=== PATIENT | female | born 1995 | race Caucasian/White ===

== ENCOUNTER 2018-01-02 20:55 | Emergency (ER) | payer OTHER ==
--- OUTSIDE RECORDS SUMMARY | 2018-01-02 20:57 | XMS REPORT | Clinical Summary ---
:1995 Demographics Phone Unavailable Preferred Language Unknown Marital Status Unknown Zoroastrianism Affiliation Unknown Race Unknown Ethnic Group Unknown Author Organization [facility] Address [address] [place] [address] Phone Care Team Providers Name Role Phone Unavailable Primary Care Provider Unavailable Allergies Active Allergy Reactions Severity Noted Date Comments Doxycycline Shortness Of Breath High 04/01/2016 Azithromycin Shortness Of Breath High 04/01/2016 Current Medications Prescription Sig. Disp. Refills Start Date End Date Status ACETAZOLAMIDE ORAL Take by mouth. Active Active Problems Not on file Social History Tobacco Use Types Packs/Day Years Used Date Current Every Day Smoker Alcohol Use Drinks/Week oz/Week Comments No Sex Assigned at Date Recorded Not on file Last Filed Vital Signs Not on file Plan of Treatment Not on file Results Not on fileafter 01/01/2017
[2018-01-02 21:34] LABS: Urine Blood TRACE (NEG); Urine Glucose NEGATIVE (NEG); Urine Protein NEGATIVE (NEG); Urine Specific Gravity 1.025 (1.005-1.030)
[2018-01-02 21:56] LABS: Urine Bacteria >50 /HPF (<20); Urine Culture Reflex Order REFLEXED; Urine RBC <5 /HPF (NONE SEEN)
[2018-01-02 22:02] LABS: Absolute Lymphocytes (CBC) 2.2 K/uL (0.7-4.9); Absolute Monocytes 0.6 K/uL (0.1-1.3); Absolute Neutrophil 6.8 K/uL (1.8-8.0); Basophils % 0.6 % (0-1.3); Eosinophils % 4.7 % (0-4.4); Hematocrit 38.4 % (36.0-45.0); MCH 30.5 pg (27.0-35.0); MCV 88.9 fL (80-100); Monocytes % 5.8 % (3.3-12.3); RBC Red Blood Cell Count 4.32 M/uL (3.86-4.86)
[2018-01-02] MEDS ORDERED: ONDANSETRON 4 MG/2 ML VIAL ONE (22:03)
[2018-01-02] MEDS ORDERED: MORPHINE 4 MG/ML SYR ONE (22:03)
[2018-01-02 22:29] LABS: ALT/SGPT 93 U/L (12-78); AST/SGOT 46 U/L (15-37); Albumin 3.9 g/dL (3.4-5.0); Alkaline Phosphatase 100 U/L (45-117); BUN Blood Urea Nitrogen 11 mg/dL (7-18); Bicarbonate 24 mmol/L (21-32); Bilirubin Direct 0.1 mg/dL (0-0.2); Bilirubin Total 0.4 mg/dL (0.2-1.0); Glucose Level 78 mg/dL (74-106); Lipase 83 U/L (73-393); Potassium 3.6 mmol/L (3.5-5.1); Protein, Total 7.9 g/dL (6.4-8.2); Sodium Level 140 mmol/L (136-145)
[2018-01-02 22:33] LABS: HCG, Quantitative < 1 mIU/mL (1-3)
[2018-01-02] MEDS ORDERED: KETOROLAC 30 MG/ML INJ ONE (23:01)
--- NOTE | 2018-01-03 00:51 | ER ---
Nurse's Notes [facility] Name: Ana Lilia Kline Age: 22 yrs Sex: Female : 1995 Arrival Date: 01/02/2018 Time: 20:58 Bed 28 Private MD: Diagnosis: Lower abdominal pain, unspecified Presentation: 01/02 21:00 Presenting complaint: Patient states: "Since Thursday I've been having really bad pain aj1 on the right side of my abdomen. I went to my doctor because its been a month since I had emergency surgery because I lost blood flow to the right ovary and they had to remove it. She saw her doctor and they did blood work and she was prescribed Tylenol #3, which she has taken but the pain has gotten progressively worse, and now the Tylenol #3s arent' helping. Reports nausea. Denies V/D. Denies fever. Reports some spotty vaginal bleeding but says that she was told to expect that after surgery. Transition of care: patient was not received from another setting of care. Onset of symptoms was December 29, 2017. Risk Assessment: Do you want to hurt yourself or someone else? Patient reports no desire to harm self or others. Initial Sepsis Screen: Does the patient meet any 2 criteria? HR > 90 bpm. No. Patient's initial sepsis screen is negative. Does the patient have a suspected source of infection? Yes: Acute abdominal pain. Care prior to arrival: None. 21:00 Method Of Arrival: Ambulatory aj1 21:00 Acuity: KATY 3 aj1 Triage Assessment: 21:05 General: Appears uncomfortable, Behavior is cooperative, restless. Pain: Complains of aj1 pain in groin, right femoral area and right inguinal area Pain currently is 8 out of 10 on a pain scale. Neuro: Level of Consciousness is awake, alert, obeys commands. Cardiovascular: Patient's skin is warm and dry. Respiratory: Airway is patent Respiratory effort is even, unlabored, Respiratory pattern is regular, symmetrical. GI: Reports nausea. : Reports vaginal bleeding that is spotty. 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 - Social history:: Smoking status: Patient uses tobacco products, smokes one-half pack cigarettes per day. - Ebola Screening: : Patient denies travel to an Ebola-affected area in the 21 days before illness onset. Screenin:30 Abuse screen: Denies threats or abuse. Denies injuries from another. rv 21:30 Nutritional screening: No deficits noted. Tuberculosis screening: No symptoms or risk rv factors identified. Fall Risk None identified. Assessment: 21:30 General: Appears in no apparent distress. uncomfortable, Behavior is calm, cooperative. rv 21:30 Pain: Complains of pain in abdomen. Neuro: Level of Consciousness is awake, alert, rv obeys commands, Oriented to person, place, time, situation. Cardiovascular: Capillary refill < 3 seconds. Respiratory: Airway is patent. GI: Bowel sounds present X 4 quads. Abd is soft and non tender X 4 quads. : No signs and/or symptoms were reported regarding the genitourinary system. EENT: No signs and/or symptoms were reported regarding the EENT system. Derm: Skin is intact. 22:25 Reassessment: Patient appears in no apparent distress at this time. Patient and/or rv family updated on plan of care and expected duration. Pain level reassessed. Patient is alert, oriented x 3, equal unlabored respirations, skin warm/dry/pink. 23:30 Reassessment: Patient appears in no apparent distress at this time. Patient and/or rv family updated on plan of care and expected duration. Pain level reassessed. Patient is alert, oriented x 3, equal unlabored respirations, skin warm/dry/pink. 23:30 Reassessment:. rv 01/03 00:29 Reassessment: pt states she is very upset because she does not want to have CT scan bb notified Gayla MAY. Vital Signs: 01/02 21:05 BP 140 / 57; Pulse 107; Resp 18; Temp 97.2; Pulse Ox 99% on R/A; Weight 113.4 kg (M); aj1 Height 5 ft. 2 in. (157.48 cm) (M); Pain 8/10; 22:59 BP 106 / 66; Pulse 68; Pulse Ox 99% on R/A; rv 01/03 00:52 BP 112 / 75; Pulse 72; Pulse Ox 99% on R/A; rv 01/02 21:05 Body Mass Index 45.73 (113.40 kg, 157.48 cm) aj1 ED Course: 01/02 20:58 Patient arrived in ED. al2 21:02 Alexandro Petit PA is PHCP. cp 21:02 Indra Yee MD is Attending Physician. cp 21:03 Triage completed. aj1 21:05 Arm band placed on Patient placed in an exam room. aj1 21:30 Patient has correct armband on for positive identification. Placed in gown. Bed in low rv position. Call light in reach. Side rails up X 1. 21:30 Pulse ox on. NIBP on. rv 21:30 Inserted saline lock: 20 gauge in right antecubital area, using aseptic technique. rv Blood collected. 21:30 Initial lab(s) drawn, by me, sent to lab. Urine collected: clean catch specimen, clear. rv 21:49 Urine Culture Sent. jp3 21:49 Urine Microscopic Only Sent. jp3 22:18 Ultrasound completed. Patient tolerated well. aa4 22:19 US Transvaginal Study (Probe) In Process Unspecified. EDMS 01/03 00:53 No provider procedures requiring assistance completed. IV discontinued, bleeding rv controlled, No redness/swelling at site. Pressure dressing applied. Administered Medications: 01/02 22:00 Drug: morphine 4 mg Route: IVP; Site: right antecubital; rv 23:27 Follow up: Response: Pain is decreased rv 22:13 Drug: Zofran 4 mg Route: IVP; Site: right antecubital; rv 23:28 Follow up: Response: Nausea is decreased rv 22:59 Drug: TORadol 30 mg Route: IVP; Site: right antecubital; rv 23:28 Follow up: Response: Pain is decreased rv Outcome: 01/03 00:53 AMA AMA form signed rv Condition: improved Instructed on follow up and referral plans. 00:54 Patient left the ED. rv Signatures: Dispatcher [employer] EDVianney Guzmán RN RN aj1 Sommer Rodrigues RN RN Nataliia Cai aa4 Alexandro Petit PA PA cp Love, Angelica al2 Vicente, Ronaldo RN RN rv Edwin Gayle jp3
--- NOTE | 2018-01-03 00:51 | EDPHYS ---
Physician Documentation [facility] Name: Ana Lilia Kline Age: 22 yrs Sex: Female : 1995 Arrival Date: 01/02/2018 Time: 20:58 Bed 28 Private MD: ED Physician Indra Yee HPI: 01/02 21:33 This 22 yrs old Female presents to ER via Ambulatory with complaints of cp Abdominal Pain. 21:33 The patient presents with abdominal pain right lower quadrant. cp 21:33 Onset: The symptoms/episode began/occurred 4 day(s) ago. cp 21:33 The symptoms do not radiate. Associated signs and symptoms: Pertinent positives: cp vaginal spotting, Pertinent negatives: chest pain, constipation, diarrhea, dysuria, fever, vomiting. 21:33 Patient reports having emergency surgery with removal of right fallopian tube 1 month cp ago at hospital in [place]. Patient reports increasing pain over past 4 days to right lower abdomen. 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 - Social history:: Smoking status: Patient uses tobacco products, smokes one-half pack cigarettes per day. - Ebola Screening: : Patient denies travel to an Ebola-affected area in the 21 days before illness onset. ROS: 21:40 Constitutional: Negative for body aches, chills, fever, poor PO intake. cp 21:40 Eyes: Negative for injury, pain, redness, and discharge. cp 21:40 ENT: Negative for drainage from ear(s), ear pain, sore throat, difficulty swallowing, difficulty handling secretions. 21:40 Cardiovascular: Negative for chest pain, palpitations. 21:40 Respiratory: Negative for cough, shortness of breath, wheezing. 21:40 Abdomen/GI: Positive for abdominal pain, of the right lower quadrant, Negative for nausea, vomiting, and diarrhea, constipation, anorexia, black/tarry stool, rectal bleeding. 21:40 Back: Negative for pain at rest, pain with movement, radiated pain. 21:40 : Positive for vaginal spotting, Negative for urinary symptoms, flank pain, vaginal discharge. 21:40 Skin: Negative for cellulitis, rash. 21:40 Neuro: Negative for altered mental status, headache, weakness. 21:40 All other systems are negative. Exam: 21:48 Constitutional: The patient appears in no acute distress, alert, awake, non-toxic, well cp developed, well nourished, uncomfortable. 21:48 Head/Face: Normocephalic, atraumatic. Eyes: Pupils equal round and reactive to light, cp extra-ocular motions intact. Lids and lashes normal. Conjunctiva and sclera are non-icteric and not injected. Cornea within normal limits. Periorbital areas with no swelling, redness, or edema. ENT: Nares patent. No nasal discharge, no septal abnormalities noted. Tympanic membranes are normal and external auditory canals are clear. Oropharynx with no redness, swelling, or masses, exudates, or evidence of obstruction, uvula midline. Mucous membranes moist. Chest/axilla: Normal chest wall appearance and motion. Nontender with no deformity. No lesions are appreciated. 21:48 Cardiovascular: Rate: tachycardic, Rhythm: regular, Edema: is not appreciated, JVD: is not appreciated. 21:48 Respiratory: the patient does not display signs of respiratory distress, Respirations: normal, no use of accessory muscles, no retractions, no splinting, no tachypnea, labored breathing, is not present, Breath sounds: are clear throughout, no decreased breath sounds, no stridor, no wheezing. 21:48 Abdomen/GI: Inspection: abdomen appears normal, Bowel sounds: active, all quadrants, Palpation: soft, in all quadrants, moderate abdominal tenderness, in the right lower quadrant, rebound tenderness, is not appreciated, involuntary guarding, is not appreciated. 21:48 Back: pain, is absent, ROM is normal. 21:48 Skin: cellulitis, is not appreciated, no rash present. 21:48 Neuro: Orientation: to person, place \T\ time. Mentation: lucid, able to follow commands, Cerebellar function: is grossly normal, Motor: moves all fours, strength is normal, Sensation: no obvious gross deficits, Gait: is steady. Vital Signs: 21:05 BP 140 / 57; Pulse 107; Resp 18; Temp 97.2; Pulse Ox 99% on R/A; Weight 113.4 kg (M); aj1 Height 5 ft. 2 in. (157.48 cm) (M); Pain 8/10; 22:59 BP 106 / 66; Pulse 68; Pulse Ox 99% on R/A; rv 01/03 00:52 BP 112 / 75; Pulse 72; Pulse Ox 99% on R/A; rv 01/02 21:05 Body Mass Index 45.73 (113.40 kg, 157.48 cm) aj1 MDM: 01/02 21:25 Patient medically screened. cp 01/03 00:45 Data reviewed: vital signs, nurses notes, lab test result(s), radiologic studies, cp ultrasound. 00:45 Refusal of service: The patient/guardian displays adequate decision making capability cp and despite a detailed discussion of alternatives, benefits, risks, and consequences refuses: CT Scan. 01/02 21:18 Order name: Urine Microscopic Only; Complete Time: 22:29 bb 01/02 21:18 Order name: Urine Culture 01/02 21:21 Order name: Urine Dipstick--Ancillary (enter results); Complete Time: 21:42 mw2 01/02 21:21 Order name: Urine --Ancillary (enter results); Complete Time: 21:42 mw2 01/02 21:42 Interpretation: Reviewed. cp 01/02 21:42 Order name: Basic Metabolic Panel cp 01/02 21:42 Order name: CBC with Diff cp 01/02 21:42 Order name: Creatinine for Radiology cp 01/02 21:42 Order name: Hepatic Function cp 01/02 21:42 Order name: Lipase; Complete Time: 22:53 cp 01/02 21:42 Order name: Beta hcg; Complete Time: 22:53 cp 01/02 21:42 Order name: Basic Metabolic Panel; Complete Time: 22:53 EDMS 01/02 21:42 Order name: CBC with Automated Diff; Complete Time: 22:29 EDMS 01/02 21:42 Order name: Liver (Hepatic) Function; Complete Time: 22:53 EDMS 01/02 21:42 Order name: IV Saline Lock; Complete Time: 21:45 cp 01/02 21:42 Order name: Labs collected and sent; Complete Time: 21:45 cp 01/02 21:52 Order name: US Transvaginal Study (Probe) cp Administered Medications: 01/02 22:00 Drug: morphine 4 mg Route: IVP; Site: right antecubital; rv 23:27 Follow up: Response: Pain is decreased rv 22:13 Drug: Zofran 4 mg Route: IVP; Site: right antecubital; rv 23:28 Follow up: Response: Nausea is decreased rv 22:59 Drug: TORadol 30 mg Route: IVP; Site: right antecubital; rv 23:28 Follow up: Response: Pain is decreased rv Disposition: 01/03 19:22 Co-signature as Attending Physician, Indra Yee MD. rn Disposition: 01/03/18 00:50 Patient has left against medical advice. Impression: Lower abdominal pain, unspecified. - Patients states they are going to Home. - Condition is Stable. - Discharge Instructions: Abdominal Pain, Adult. Follow up: Private Physician; When: Tomorrow; Reason: Recheck today's complaints. - Problem is new. - Symptoms have improved. Signatures: Dispatcher [employer] [facility] Vianney Toledo RN RN aj1 Indra Yee MD MD rn Page, Corey, PA PA Eduar Mares RN RN rv Corrections: (The following items were deleted from the chart) 01/02 21:59 21:42 Creatinine (Radiology Only) ordered. [facility] 01/03 00:54 00:50 01/03/2018 00:50 Patients has left against medical advice. Impression: Lower rv abdominal pain, unspecified. Patient states they are going to Home. Condition is Stable. Follow up: Private Physician; When: Tomorrow; Reason: Recheck today's complaints. Problem is new. Symptoms have improved. cp
[2018-01-03 01:19] VITALS: TEMP 97.2; O2SAT 99
[2018-01-03 01:21] VITALS: BP 112/75
--- NOTE | 2018-01-03 10:28 | RAD REPORT ---
EXAM DESCRIPTION: US - Transvaginal Study Probe - 01/02/2018 10:31 pm CLINICAL HISTORY: Right adnexal pain, history of recent left salpingectomy COMPARISON: None. TECHNIQUE: Endovaginal sonography was performed along with limited transabdominal assessment. FINDINGS: Endometrial stripe is 6 mm with no endometrial abnormality. No myometrial mass. Uterus is 6.8 by 3.6 x 4.7 cm. Both ovaries are identifiable. Doppler evaluation shows no suspicious pattern to the ovarian stroma. Left ovary measures larger than the right but does not contain a dominant solid or cystic mass. No ab normal free fluid in the cul-de-sac. IMPRESSION: As detailed above, no significant or suspicious uterine, ovarian or adnexal finding.
== END 2018-01-03 00:54 | disposition left against medical advice (07) ==
LOC: ER 20:55
DX: R10.31 Right lower quadrant pain (principal); Z88.3 Allergy status to other anti-infective agents
CPT/HCPCS: 36415; 76830; 80048; 80076; 81003; 81015; 81025; 83690; 84702; 85025; 87086; 87088; 96374; 96375; 99284; J2405

== ENCOUNTER 2018-04-01 17:33 | Emergency (ER) | payer OTHER, SELFPAY ==
--- OUTSIDE RECORDS SUMMARY | 2018-04-01 17:36 | XMS REPORT | Clinical Summary ---
:1995 Demographics Phone Unavailable Preferred Language Unknown Marital Status Unknown Sikh Affiliation Unknown Race Unknown Ethnic Group Unknown Author Organization [facility] Address [address] [place] [address] Care Team Providers Name Role Phone Unavailable Primary Care Provider Unavailable Allergies Active Allergy Reactions Severity Noted Date Comments Doxycycline Shortness Of Breath High 04/01/2016 Azithromycin Shortness Of Breath High 04/01/2016 Medications Medication Sig Dispensed Refills Start Date End Date Status ACETAZOLAMIDE ORAL Take by mouth. 0 Active Active Problems Not on file Social History Tobacco Use Types Packs/Day Years Used Date Current Every Day Smoker Alcohol Use Drinks/Week oz/Week Comments No Sex Assigned at Date Recorded Not on file Job Start Date Occupation Industry Not on file Not on file Not on file Travel History Travel Start Travel End No recent travel history available. Last Filed Vital Signs Not on file Plan of Treatment Not on file Results Not on fileafter 03/31/2017
--- NOTE | 2018-04-01 19:27 | RAD REPORT ---
EXAM DESCRIPTION: RAD - Wrist Right 3 View - 04/01/2018 6:50 pm CLINICAL HISTORY: Right wrist pain FINDINGS: No fracture or dislocation is seen. Fusion of the lunate and triquetrum is present.
[2018-04-01] MEDS ORDERED: HYDROCODONE/APAP 5/325 MG TAB ONE (19:43)
--- NOTE | 2018-04-01 19:52 | ER ---
Nurse's Notes [facility] Name: Ana Lilia Kline Age: 22 yrs Sex: Female : 1995 Arrival Date: 04/01/2018 Time: 17:35 Bed 10 Private MD: Diagnosis: Pain in right wrist Presentation: 04/01 18:01 Presenting complaint: Right wrist pain after feeling something pop inside while picking hb up daughter last night. Transition of care: patient was not received from another setting of care. Onset of symptoms was March 31, 2018. Risk Assessment: Do you want to hurt yourself or someone else? Patient reports no desire to harm self or others. Initial Sepsis Screen: Does the patient meet any 2 criteria? No. Patient's initial sepsis screen is negative. Does the patient have a suspected source of infection? No. Patient's initial sepsis screen is negative. Care prior to arrival: None. 18:01 Method Of Arrival: Ambulatory hb 18:01 Acuity: KATY 4 hb Triage Assessment: 18:30 Injury Description:. iw 19:56 General: Appears in no apparent distress. Behavior is calm, cooperative. 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 - Social history:: Smoking status: Patient/guardian denies using tobacco. - Ebola Screening: : No symptoms or risks identified at this time. Screenin:40 Abuse screen: Denies threats or abuse. Denies injuries from another. Nutritional iw screening: No deficits noted. Tuberculosis screening: No symptoms or risk factors identified. Fall Risk None identified. Assessment: 18:40 General: Appears in no apparent distress. comfortable, Behavior is calm, cooperative. iw Pain: Complains of pain in right arm and right wrist. Neuro: Level of Consciousness is awake, alert, obeys commands, Moves all extremities. Full function. Cardiovascular: No deficits noted. Respiratory: Respiratory effort is even, unlabored, Respiratory pattern is regular, symmetrical. Derm: Skin is intact, is healthy with good turgor. Musculoskeletal: Reports pain in right wrist. Vital Signs: 18:00 BP 138 / 72; Pulse 88; Resp 16; Temp 97.1; Pulse Ox 100% on R/A; Pain 6/10; hb ED Course: 17:35 Patient arrived in ED. rg4 18:00 Arm band placed on. hb 18:01 Triage completed. hb 18:30 Annalee Feliciano, RN is Primary Nurse. iw 18:32 Meg[facility] Randhawa [facility]-C [facility]. kb 18:32 Navi Sheldon MD is Attending Physician. kb 18:40 Patient has correct armband on for positive identification. iw 18:49 Wrist Right 3 View XRAY In Process Unspecified. EDMS 19:56 No provider procedures requiring assistance completed. Patient did not have IV access iw during this emergency room visit. Administered Medications: 19:40 Drug: Stuart 5 mg-325 mg 1 tabs Route: PO; iw Outcome: 19:52 Discharge ordered by . kb 19:56 Discharged to home ambulatory. iw 19:56 Condition: good 19:56 Discharge instructions given to patient, Instructed on discharge instructions, follow up and referral plans. Demonstrated understanding of instructions, follow-up care. 19:57 Patient left the ED. iw Signatures: Dispatcher [employer] EDMA Meggan Randhawa FNP-C [employer] BW DEVELOPER-CkAnnalee Dietz, RN RN Vy Graham RN RN hb Garcia, Rubi rg4
--- NOTE | 2018-04-01 19:52 | EDPHYS ---
Physician Documentation [facility] Name: Ana Lilia Kline Age: 22 yrs Sex: Female : 1995 Arrival Date: 04/01/2018 Time: 17:35 Bed 10 Private MD: ED Physician Navi Sheldon HPI: 04/01 19:50 This 22 yrs old Female presents to ER via Ambulatory with complaints of Hand kb Injury. 19:50 The patient or guardian reports decreased range of motion, injury, pain, swelling, kb tenderness. The complaints affect the right wrist diffusely. Context: The problem was sustained at home, resulted from landed on it wrong. Onset: The symptoms/episode began/occurred yesterday. Modifying factors: The symptoms are alleviated by nothing, the symptoms are aggravated by nothing. Associated signs and symptoms: The patient has no apparent associated signs or symptoms. The patient has not experienced similar symptoms in the past. The patient has not recently seen a physician. Pt reports chronic wrist pain that was exacerbated yesterday when she caught her daughter from falling off the bed. States she felt a pop at the time and thinks it is broken. CONDUCTOR SYMPHONIC ORCHESTRA: 18:30 LMP N/A - iw Historical: - Allergies: 18:00 Doxycycline; hb 18:00 Zithromax; hb 18:00 Toradol; hb - Immunization history:: Adult Immunizations not up to date. - Social history:: Smoking status: Patient/guardian denies using tobacco. - Ebola Screening: : No symptoms or risks identified at this time. ROS: 19:49 Constitutional: Negative for fever, chills, and weight loss, Cardiovascular: Negative kb for chest pain, palpitations, and edema, Respiratory: Negative for shortness of breath, cough, wheezing, and pleuritic chest pain, Abdomen/GI: Negative for abdominal pain, nausea, vomiting, diarrhea, and constipation, Skin: Negative for injury, rash, and discoloration, Neuro: Negative for headache, weakness, numbness, tingling, and seizure. 19:49 MS/extremity: Positive for decreased range of motion, pain, swelling, tenderness. Exam: 19:49 Constitutional: This is a well developed, well nourished patient who is awake, alert, kb and in no acute distress. Head/Face: Normocephalic, atraumatic. Chest/axilla: Normal chest wall appearance and motion. Nontender with no deformity. No lesions are appreciated. Cardiovascular: Regular rate and rhythm with a normal S1 and S2. No gallops, murmurs, or rubs. Normal PMI, no JVD. No pulse deficits. Respiratory: Lungs have equal breath sounds bilaterally, clear to auscultation and percussion. No rales, rhonchi or wheezes noted. No increased work of breathing, no retractions or nasal flaring. Abdomen/GI: Soft, non-tender, with normal bowel sounds. No distension or tympany. No guarding or rebound. No evidence of tenderness throughout. Skin: Warm, dry with normal turgor. Normal color with no rashes, no lesions, and no evidence of cellulitis. Neuro: Awake and alert, GCS 15, oriented to person, place, time, and situation. Cranial nerves II-XII grossly intact. Motor strength 5/5 in all extremities. Sensory grossly intact. Cerebellar exam normal. Normal gait. 19:49 Musculoskeletal/extremity: Extremities: grossly normal except: noted in the right wrist: decreased ROM, pain, swelling, tenderness, ROM: limited active range of motion due to pain, in the right wrist, Circulation is intact in all extremities. Sensation intact. Vital Signs: 18:00 BP 138 / 72; Pulse 88; Resp 16; Temp 97.1; Pulse Ox 100% on R/A; Pain 6/10; hb MDM: 18:32 Patient medically screened. kb 19:48 Data reviewed: vital signs, nurses notes. Data interpreted: Pulse oximetry: on room air kb is 100 %. Interpretation: normal. Counseling: I had a detailed discussion with the patient and/or guardian regarding: the historical points, exam findings, and any diagnostic results supporting the discharge/admit diagnosis, radiology results, the need for outpatient follow up, a orthopedic surgeon, to return to the emergency department if symptoms worsen or persist or if there are any questions or concerns that arise at home. 04/01 18:02 Order name: Wrist Right 3 View XRAY; Complete Time: 19:29 hb 04/01 19:30 Order name: Splint - Wrist; Complete Time: 19:40 kb Administered Medications: 19:40 Drug: [place] 5 mg-325 mg 1 tabs Route: PO; iw Disposition: 04/01/18 19:52 Discharged to Home. Impression: Pain in right wrist. - Condition is Stable. - Discharge Instructions: Wrist Pain, [id number]. - Medication Reconciliation Form, Thank You Letter, Antibiotic Education, Prescription Opioid Use form. - Follow up: Emergency Department; When: As needed; Reason: Worsening of condition. Follow up: Private Physician; When: 2 - 3 days; Reason: Recheck today's complaints, Continuance of care, Re-evaluation by your physician. Addendum: 04/08/2018 09:35 Co-signature as Attending Physician, Navi Sheldon MD I agree with the assessment and k dr plan of care. Signatures: Dispatcher [employer] EDMS Meggan Randhawa, METAPHYSICIAN-C METAPHYSICIAN-Ckb Navi Sheldon MD MD [facility] Annalee Feliciano, CIARRA RN iw Vy Graham RN RN Corrections: (The following items were deleted from the chart) 04/01 19:57 19:52 04/01/2018 19:52 Discharged to Home. Impression: Pain in right wrist. Condition iw is Stable. Forms are Medication Reconciliation Form, Thank You Letter, Antibiotic Education, Prescription Opioid Use. Follow up: Emergency Department; When: As needed; Reason: Worsening of condition. Follow up: Private Physician; When: 2 - 3 days; Reason: Recheck today's complaints, Continuance of care, Re-evaluation by your physician. kb
[2018-04-01 20:05] VITALS: BP 138/72; TEMP 97.1; O2SAT 100
== END 2018-04-01 19:57 | disposition home or self-care (01) ==
LOC: ER 17:33
DX: M25.531 Pain in right wrist (principal); Z88.6 Allergy status to analgesic agent; Z88.1 Allergy status to other antibiotic agents

== ENCOUNTER 2020-02-19 16:37 | Emergency (ER) | payer OTHER, SELFPAY ==
--- OUTSIDE RECORDS SUMMARY | 2020-02-19 16:39 | XMS REPORT | Clinical Summary ---
:1995 Author Organization [facility] Address [address] [place] [address] Care Team Providers Name Role Phone Asked, Pcp Primary Care Provider Unavailable Allergies Active Allergy Reactions Severity Noted Date Comments Azithromycin Anaphylaxis High 05/01/2019 Doxycycline GI Intolerance 05/01/2019 Ketorolac Hives 05/01/2019 Medications Not on file Active Problems Not on file Encounters Date Type Specialty Care Team Description 05/01/2019 Emergency Emergency Medicine Nithin Potter Leu kocytosis, unspecified type (Primary Dx); Tachycardia; SIRS (systemic inflammatory response syndrome) (HCC); Pelvic pain; Left against me dical advice after 02/18/2019 Social History Tobacco Use Types Packs/Day Years Used Date Never Assessed Sex Assigned at Date Recorded Not on file Last Filed Vital Signs Vital Sign Reading Time Taken Comments Blood Pressure 117/74 05/01/2019 5:24 PM [employer] Pulse 131 05/01/2019 5:24 PM [employer] Temperature 37.1 C (98.7 F) 05/01/2019 5:24 PM [employer] Respiratory Rate 20 05/01/2019 5:24 PM [employer] Oxygen Saturation 97% 05/01/2019 5:24 PM [employer] Inhaled Oxygen Concentration - - Weight - - Height 157.5 cm (5' 2") 05/01/2019 5:24 PM [employer] Body Mass Index - - Plan of Treatment Health Maintenance Due Date Last Done Comments CHLAMYDIA SCREENING 2011 CERVICAL CANCER SCREENING 09/06/2016 INFLUENZA VACCINE 10/15/2019 Procedures Procedure Name Priority Date/Time Associated Comments Diagnosis ECG 12-LEAD STAT 05/01/2019 6:45 Results for this PM [employer] procedure are i n the results section. ESTIMATED GFR STAT 05/01/2019 6:30 Results fo r this PM [employer] procedure are i n the results section. HCG QUALITATIVE, SERUM STAT 05/01/2019 6:30 R esults for this SCREEN PM [employer] procedure are i n the results section. LIPASE LEVEL STAT 05/01/2019 6:30 Results for this PM [employer] procedure are i n the results section. LACTIC ACID LEVEL, STAT 05/01/2019 6:30 Resul ts for this SEPSIS - NOW AND PM [employer] procedure a re in REPEAT 2X EVERY 3 the result s HOURS section. COMPREHENSIVE STAT 05/01/2019 6:30 Results fo r this METABOLIC PANEL PM [employer] procedure ar e in the results section. HC COMPLETE BLD COUNT STAT 05/01/2019 6:30 Re sults for this W/AUTO DIFF PM [employer] procedure are i n the results section. after 02/18/2019 Results ECG 12 lead (05/01/2019 6:45 PM [employer]) Pathologist Sig nature Ventricular rate 106 [facility] Atrial rate 106 [facility] TN interval 118 [facility] QRSD interval 82 [facility] QT interval 350 [facility] QTC interval 464 [facility] P axis 1 49 [facility] QRS axis 1 37 [facility] T wave axis 4 [facility] EKG impression Sinus [facility] tachycardia-Otherwise normal ECG-No previous ECGs available-Electronicall y Signed By Lorenzo BECKFORD, Jose Juan Steel ([id number]) on 05/01/2019 9:47:05 PM Specimen Narrative Performed At This result has an attachment that is no t available. Performing Organization Address City/State/ZIP Code Phon e Number [address] [address] Estimated GFR (05/01/2019 6:30 PM [employer]RO[employer]) Estimated GFR >=90 mL/min/1.73 [facility] Comment: m2 HOSPITAL Catergory Units Interpretation G1 >=90 Normal or high G2 60-89 Mildly decreased G3a 45-59 Mildly to moderately decreas ed G3b 30-44 Moderately to severely decre ased G4 15-29 Severely decreased G5 <15 Kidney failure The eGFR was calculated using the Chronic Kidney Disea se Epidemiology Collaboration (CKD-EPI) equation. Interpretation is based on recommendations of the National Kidney Foundation-Kidney Disease Outcomes Donovan lity Initiative (NKF-KDOQI) published in 2014. Specimen Plasma specimen Performing Organization Address City/State/ZIP Code Phon e Number [facility] DEPARTMENT OF PATHOLOGY AND [address] [place] [phone] GENOMIC MEDICINE [address] [address] Lactic acid level, SEPSIS - Now and repeat 2x every 3 hours (05/01/2019 6:30 PM [employer]) Pathologist Sig nature Lactic acid 1.5 0.5 - 2.2 mmol/L [facility] [place] Specimen Plasma specimen Performing Organization Address City/[facility] Phon e Number [facility] DEPARTMENT OF PATHOLOGY AND [address] [place], [place] [address] [address] CBC with platelet and differential (05/01/2019 6:30 PM [employer]) WBC 13.27 (H) 4.50 - 11.00 [facility] k/uL HOSPITAL RBC 4.26 4.20 - 5.50 [facility] m/uL [facility] HGB 13.1 12.0 - 16.0 [facility] HCT 39.2 37.0 - 47.0 % [facility] MCV 92.0 82.0 - 100.0 [facility] MCH 30.8 27.0 - 34.0 pg [facility] MCHC 33.4 31.0 - 37.0 [facility] g/[facility] RDW - SD 43.7 37.0 - 55.0 fL [facility] MPV 9.8 8.8 - 13.2 fL [facility] Platelet count 374 150 - 400 k/uL [facility] Nucleated RBC 0.00 /100 WBC [facility] Neutrophils 65.0 39.0 - 69.0 % [facility] Lymphocytes 19.4 (L) 25.0 - 45.0 % [facility] Monocytes 6.7 0.0 - 10.0 % [facility] Eosinophils 8.1 (H) 0.0 - 5.0 % [facility] Basophils 0.5 0.0 - 1.0 % [facility] Immature granulocytes 0.3Comment: 0.0 - 1.0 % [facility] "Immature [facility] granulocytes" (promyelocytes , myelocytes, metamyelocytes ) Specimen Blood Performing Organization Address City/[facility] Phon e Number [facility] DEPARTMENT OF PATHOLOGY AND [address] [place], [place] [address] [address] hCG qualitative, serum screen (05/01/2019 6:30 PM [employer]RO[employer]) hCG qualitative, NegativeComment: [facility] serum Sensitivity of HCG HOSPITAL test: 25 mIU/mL Specimen Blood Performing Organization Address City/[facility] Phon e Number [facility] DEPARTMENT OF PATHOLOGY AND [address] [place] [phone] [facility] [address] [place] [phone] Lipase level (05/01/2019 6:30 PM [employer]RO[employer]) Pathologist Sig nature Lipase 13 13 - 60 U/L [facility] Specimen Plasma specimen Performing Organization Address City/State/[facility] Phon e Number [facility] DEPARTMENT OF PATHOLOGY AND [address] [place] [address] [phone] [address] Comprehensive metabolic panel (05/01/2019 6:30 PM [employer]RO[employer]) Sodium 140 135 - 148 [facility] mEq/L [facility] Potassium 4.0 3.5 - 5.0 [facility] mEq/L [facility] Chloride 107 98 - 112 mEq/L [facility] CO2 19 (L) 24 - 31 mEq/L [facility] Anion gap 14@ANIO 7 - 15 mEq/L [facility] BUN 10 6 - 20 mg/dL [facility] Creatinine 0.76 0.50 - 0.90 [facility] mg/dL HOSPITAL Glucose 80 65 - 99 mg/dL [facility] Calcium 9.0 8.3 - 10.2 [facility] mg/dL [facility] Protein 7.4 6.3 - 8.3 g/dL [facility] Comment: HOSPITAL Icilqnd6391.6-7.0 g/dL 1 pkpn9119.4-7.6 g/dL 7 months-2srrg945.1-7.3 g/dL 1-2 lyxlq874.6-7.5 g/dL >3 fswyn846.0-8.0 g/dL 18-4551886.3-8.3 g/dL Albumin 3.6 3.5 - 5.0 g/dL [facility] A/G ratio 0.9 0.7 - 3.8 [facility] Alkaline phosphatase 70 35 - 104 U/L [facility] AST 24 10 - 35 U/L [facility] ALT 23 5 - 50 U/L [facility] Total bilirubin <0.2 0.0 - 1.2 [facility] mg/dL HOSPITAL Specimen Plasma specimen Performing Organization Address City/State/ZIP Code Phon e Number [facility] DEPARTMENT OF PATHOLOGY AND [address] [place], [place] [phone] GENOMIC MEDICINE [facility] [address] [place] [address] after 02/18/[phone] Advance Directives For more information, please contact: [phone] Type Date Recorded 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
--- OUTSIDE RECORDS SUMMARY | 2020-02-19 16:39 | XMS REPORT | Clinical Summary ---
:1995 Demographics Phone Unavailable Preferred Language Unknown Marital Status Unknown Islam Affiliation Unknown Race Unknown Ethnic Group Unknown Author Organization [facility] Address [address] [place] [address] Care Team Providers Name Role Phone Unavailable [...] Not on file Results Not on fileafter 02/18/2019
--- OUTSIDE RECORDS SUMMARY | 2020-02-19 16:41 | XMS REPORT | Continuity of Care Document ---
:1995 Author Organization [facility] t Address [address] [place] [address] Care Team Providers Name Role Phone Asked, Pcp Primary Care Physician Unavailable Andrew Potter MD Attending Clinician Payers Payer Name Policy Type Policy Effective Expiration Source Number Date Date AMERIGROUPAMERIGRP STAR [id number] 2018 H brando [id number] 2019-Pr 00:00:00 M ethodist esentHMO Problems This patient has no known problems. Allergies, Adverse Reactions, Alerts Allergy Allergy Status Severity Reaction(s) Onset Inactive Treating Comm ents Source Name Type Date Date Clinician doxycycl DA Active MO 2019- [facility] [place] [facility] azithrom DA Active MO 2019-03 [facility] ycin 03-16 [place] [facility] metoclop DA Active U 2019- [facility] ramide 03-16 [place] [facility] Azithrom Propensi Active Anaphylaxis 2020-0 H [facility] ycin ty to 2-16 Methodi adverse 00:00: st reaction 00 s to drug Doxycycl Propensi Active GI [place] ty to Intolerance 2-16 Metho di adverse 00:00: st reaction 00 s to drug Ketorola Propensi Active Hives [place] ty to 2-16 Methodi adverse 00:00: st reaction 00 s to drug doxycycl DA Active SV [facility] 2-09 Clear 00:00: Ng 00 [facility] Doxycycl Drug Active [facility] Allergy Breath 04[facility]01 [facility] 00 [place] Azithrom Drug Active [facility] Allergy Breath 04-01 [facility] - [facility] 00 [place] azithrom DA Active [facility] ycin - Clear 00:00: Ng 00 [facility] Social History Social Habit Start Date Stop Date Quantity Comments Source Sex Assigned At [facility] ethodist Alcohol intake 2016-04-01 2016-04-01 Current [facility] - 00:00:00 00:00:00 non-drinker of Medical nter alcohol (finding) Smoking Status Start Date Stop Date Source Current every day smoker 2016-04-01 00:00:00 [facility] Medications Ordered Filled Start Stop Current Ordering Indication Dosage Frequency Signature Comments Components Source Medication Medication Date Date Medication? Clinician (SIG) Name Name ACETAZOLAMI Yes Take by [facility] DE ORAL 1-17 mouth. [facility] - 21:52: [address] Vital Signs Vital Name Observation Time Observation Value Comments Source Systolic blood 2019-05-01 17:24:11 117 mm[Hg] [place] [facility] pressure Diastolic blood 2019-05-01 17:24:11 74 mm[Hg] [place] [facility] pressure Heart rate 2019-05-01 17:24:11 131 /min [place] [facility] Body temperature 2019-05-01 17:24:11 37.06 Martina [place] [facility] Respiratory rate 2019-05-01 17:24:11 20 /min [place] [facility] Oxygen saturation in 2019-05-01 17:24:11 97 /min [place] [facility] Arterial blood by Pulse oximetry Body height 2019-05-01 17:24:00 157.5 cm [place] [facility] Procedures Procedure Date / Time Performed Performing Clinician [facility] e ECG 12-LEAD 2019-05-01 18:45:00 Noemi Rodriguez Meth zuleika Larios HC COMPLETE BLD COUNT 2019-05-01 18:30:00 Noemi Rodriguez [facility] W/AUTO DIFF [place] COMPREHENSIVE METABOLIC 2019-05-01 18:30:00 Noemi Rodriguez [facility] PANEL [place] LACTIC ACID LEVEL, SEPSIS 2019-05-01 18:30:00 Noemi Rodriguez [place] [facility] - NOW AND REPEAT 2X EVERY Harriet 3 HOURS LIPASE LEVEL 2019-05-01 18:30:00 Noemi Rodriguez Meth odist [place] HCG QUALITATIVE, SERUM 2019-05-01 18:30:00 Noemi Rodriguez [place] [facility] SCREEN Harriet ESTIMATED GFR 2019-05-01 18:30:00 Noemi Rodriguez Meth odmaribel Larios Plan of Care Planned Activity Planned Date Details Comments Source Future Scheduled 2019-10-15 INFLUENZA VACCINE [place] [facility] Test 00:00:00 [code = INFLUENZA VACCINE] Future Scheduled 2016-09-06 Screening for [place] Me [facility]odist Test 00:00:00 malignant neoplasm of cervix (procedure) [code = 468253498] Future Scheduled 2011 CHLAMYDIA SCREENING [place] [facility] Test 00:00:00 [code = CHLAMYDIA SCREENING] Encounters Start End Encounter Admission Attending Care Care Encounter Source Date/Time Date/Time Type Type Clinicians Facility Department ID 2019-05-01 2019-05-01 Emergency [facility], [facility] 064 [id number] [place] 00:00:00 00:00:00 [facility] [address] Results Test Description Test Time Test Comments Results Result Comments Source COVID 19 INHOUSE AG 2020-01-18 21:16:00 Test Item Value Reference Range Interpretation Comme nts COVID 19 INHOUSE AG (test code = NEGATIVE Negative Per public service administrator, negative [id number]) results should be treated aspresumptive a nd, if inconsistent wi th clinical signs andsymptoms or necessary for patient managem ent, should betested with a n alternative molecular assay . Negative resultsdo not p reclude SARS-CoV-2 infection and s hould not be usedas the sole basis for patient management deci sions. Negative results should be considered in the context of apatient's recent exposures, hist ory, presence of clinicalsigns a nd symptoms consistent with COVID-19. - XR CHEST 1 [id number] 20:44:00 [facility] : 1995 Sex: F Name: NATIVIDAD GREGG [facility] : 1995 Age/S: 24 / F [id number] [place] Unit #: [id number] Loc: [place] [address] Phys: Anita Kruse MD Acct: [id number] Dis Date: Status: REG ER PHONE #: [phone] Exam Date: 01/18/20202023 FAX #: Reason: Code Sepsis EXAMS: CPT: [id number] XR CHEST 1 V 13302 Fluoro Time: DAP (Gy m2): Air Kerma (mGy): Examination: One view chest x-ray Location code: H60 Comparison: 07/29/2011 Discussion: Clinical history is remarkable for shortness of breath. Heart is normal in size. Lungs are clear of consolidating infiltrates. No masses, nodules or effusions identified. When compared to the prior study there has been no interval change. Impression: 1. Stable chest x-ray without evidence for acute infiltrates or e ffusions. at 2044 Reported and signed by: Twan Evans M.D. CC: Anita Kruse MD PAGE 1 Signed Report Name: NATIVIDAD GREGG [facility] : 1995 Age/S: 24 / F [id number] [place] Unit #: [id number] Loc: [place] [address] Phys: Anita Kruse MD Acct: [id number] Dis Date: Status: REG ER PHONE #: [phone] Exam Date: 01/18/20202023 FAX #: Reason: Code Sepsis EXAMS: CPT: [id number] XR CHEST 1 V 86084 Fluoro Time: DAP (Gy m2): Air Kerma (mGy): <Continued> Technologist: Brandi Clark, RT(R)(CT) Trnscb Date/Time: 01/18/2020 (2043) [id number] Orig Print D/T: S: 01/18/2020 (2047) PAGE 2 Signed ReportUA RFLX MICR CULT IF [id number] 20:17:00 Test Item Value Reference Range Interpretation Comments UA COLOR (test code = YELLOW discript YEL/STRAW COLU) UA APPEARANCE (test code CLEAR discript CLEAR = APPU) UA GLUCOSE DIPSTICK (test NEGATIVE mg/dL NEG code = DGLUU) UA BILIRUBIN DIPSTICK NEGATIVE mg/dL NEG (test code = BILU) UA KETONE DIPSTICK (test NEGATIVE mg/dL NEG code = KETU) UA SPECIFIC GRAVITY (test 1.025 SG 1.005-1.030 code = SGU) UA BLOOD DIPSTICK (test TRACE mg/DL NEG A code = CATHERINE) UA PH DIPSTICK (test code 6.0 pH UNITS 5.0-7.0 = OG) UA PROTEIN DIPSTICK (test NEGATIVE mg/dL NEG code = PROU) UA UROBILINIOGEN DIPSTICK 0.2 mg/dL <2.0 (test code = URO) UA NITRITE DIPSTICK (test NEGATIVE SCREEN NEG code = EDVIN) UA LEUKOCYTE ESTERASE 1+ Leuk/mcL NEGATIVE A DIPSTICK (test code = LEUU) UA WBC (test code = WBCU) 1-3 #WBC/HPF 0-3 UA RBC (test code = RBCU) NONE SEEN #RBC/HPF 0-3 UA BACTERIA (test code = NONE SEEN /HPF NONE-TRACE BACU) UA SQUAMOUS CELLS (test NONE SEEN /HPF NONE code = SQU) UA CULTURE NEEDED? (test NO, WBC<10 Criteria Culture CHK code = UACULT) Indication for culture: Suprapubic PainUA RFLX MICR CULT IF INDICATED 2020-01-18 20:13:00 Test Item Value Reference Range Interpretation Comments UA COLOR (test code = COLU) YELLOW discript YEL/STRAW UA APPEARANCE (test code = CLEAR discript CLEAR APPU) UA GLUCOSE DIPSTICK (test NEGATIVE mg/dL NEG code = DGLUU) UA BILIRUBIN DIPSTICK (test NEGATIVE mg/dL NEG code = BILU) UA KETONE DIPSTICK (test code NEGATIVE mg/dL NEG = KETU) UA SPECIFIC GRAVITY (test 1.025 SG 1.005-1.030 code = SGU) UA BLOOD DIPSTICK (test code TRACE mg/DL NEG A = CATHERINE) UA PH DIPSTICK (test code = 6.0 pH UNITS 5.0-7.0 OG) UA PROTEIN DIPSTICK (test NEGATIVE mg/dL NEG code = PROU) UA UROBILINIOGEN DIPSTICK 0.2 mg/dL <2.0 (test code = URO) UA NITRITE DIPSTICK (test NEGATIVE SCREEN NEG code = EDVIN) UA LEUKOCYTE ESTERASE 1+ Leuk/mcL NEGATIVE A DIPSTICK (test code = LEUU) UA CULTURE NEEDED? (test code Criteria Culture CHK = UACULT) Indication for culture: Suprapubic PainBASIC METABOLIC [id number] 20:13:00 Test Item Value Reference Range Interpretation Comments SODIUM (test code = NA) 141 mmol/L 134-147 N POTASSIUM (test code = 3.9 mmol/L 3.4-5.0 N K) CHLORIDE (test code = 110 mmol/L 100-108 H CL) CARBON DIOXIDE (test 25 mmol/L 21-32 N code = CO2) ANION GAP (test code = 6.0 GAP calc 4.0-15.0 N GAP) GLUCOSE (test code = 108 MG/DL 70-110 N GLU) BLOOD UREA NITROGEN 9 MG/DL 7-18 N (test code = BUN) GLOMERULAR FILTRATION >=60 max estimate >60 RATE (test code = GFR) estGFR CREATININE (test code = 0.8 MG/DL 0.6-1.0 N CREAT) CALCIUM (test code = CA) 9.1 MG/DL 8.5-10.1 N Completed by Nursing: NOHEPATIC FUNCTION [id number] 20:13:00 Test Item Value Reference Range Interpretation Comments TOTAL PROTEIN (test code = PROT) 8.0 G/DL 6.4-8.2 N ALBUMIN (test code = ALB) 3.7 G/DL 3.4-5.0 N BILIRUBIN TOTAL (test code = 0.10 MG/DL 0.2-1.2 L BILT) BILIRUBIN DIRECT (test code = < 0.10 MG/DL 0.00-0.30 N BILD) BILIRUBIN INDIRECT (test code = 0.00 MG/DL 0.2-1.2 L BILIND) SGOT/AST (test code = AST) 23 Unit/L 15-37 N SGPT/ALT (test code = ALT) 33 Unit/L 12-78 N ALKALINE PHOSPHATASE TOTAL (test 96 Unit/L 45-117 N code = ALKP) Completed by Nursing: [id number] 20:13:00 Test Item Value Reference Range Interpretation Comments TROPONIN-I (test < 0.015 NG/ML 0.000-0.045 N Negative: </= 0.045 code = TROPI) Positive: >/= 0.046 Correlation wit h serial results, other cardiac markers, and cl inical findings is nec essary to determine the c linical significance of this result. Quantit ative results using d ifferent methodologies s hould not be compared to one another as nume rical results may jesse yby method. Completed by Nursing: NOLACTIC [id number] 20:13:00 Test Item Value Reference Range Interpretation Comments LACTIC ACID (test code = LACT) 1.8 mmol/L 0.4-2.0 N CBC W/AUTO [id number] 19:57:00 Test Item Value Reference Range Interpretation Comments WHITE BLOOD CELL (test code = 11.9 K/mm3 3.5-11.0 H WBC) RED BLOOD CELL (test code = 3.93 M/mm3 4.70-6.10 L RBC) HEMOGLOBIN (test code = HGB) 11.4 G/DL 10.4-14.9 N HEMATOCRIT (test code = HCT) 34.9 % 31.5-44.1 N MEAN CELL VOLUME (test code = 88.8 Fl 84.5-98.6 N MCV) MEAN CELL HGB (test code = MCH) 29.0 pg 27.0-34.2 N MEAN CELL HGB CONCETRATION 32.7 G/DL 31.5-34.0 N (test code = MCHC) RED CELL DISTRIBUTION WIDTH 13.7 SD 11.5-14.5 N (test code = RDW) PLATELET COUNT (test code = 463 K/mm3 150-450 H PLT) MEAN PLATELET VOLUME (test code 9.60 fL 7.0-10.5 N = MPV) NEUTROPHIL % (test code = NT%) 59.5 % 40-76 N IMMATURE GRANULOCYTE % (test 0.3 % 0.0-5.0 N code = IG%) LYMPHOCYTE % (test code = LY%) 30.2 % 20.5-51.1 N MONOCYTE % (test code = MO%) 6.5 % 1.7-9.3 N EOSINOPHIL % (test code = EO%) 3.0 % 0.0-6.0 N BASOPHIL % (test code = BA%) 0.5 % 0.0-2.0 N NUCLEATED RBC % (test code = 0.0 /100WBC% 0.0-1.0 N NRBC%) NEUTROPHIL # (test code = NT#) 7.1 K/mm3 1.8-7.6 N IMMATURE GRANULOCYTE # (test 0.03 x10 3/uL 0.00-0.03 N code = IG#) LYMPHOCYTE # (test code = LY#) 3.6 K/mm3 0.6-3.2 H MONOCYTE # (test code = MO#) 0.8 K/mm3 0.3-1.1 N EOSINOPHIL # (test code = EO#) 0.4 K/mm3 0.0-0.4 N BASOPHIL # (test code = BA#) 0.1 K/mm3 0.0-0.1 N NUCLEATED RBC # (test code = 0.0 K/mm3 0.0-0.1 N NRBC#) MANUAL DIFF REQUIRED (test code NO DIFF/SCN CRITERIA = MDIFF) BASIC METABOLIC [id number] 07:22:00 Test Item Value Reference Range Interpretation Comments SODIUM (test code = 138 mmol/L 137-145 N NA) POTASSIUM (test code 4.1 mmol/L 3.4-5.0 N = K) CHLORIDE (test code = 112 mmol/L 98-107 H CL) CARBON DIOXIDE (test 20 mmol/L 22-30 L code = CO2) GLUCOSE (test code = 74 mg/dL 74-106 N GLU) BLOOD UREA NITROGEN 11 mg/dL 7-17 N (test code = BUN) GLOMERULAR FILTRATION 131 >60 The es timated RATE (test code = glomerular filtration GFR) rate is compute d usingpatient ra ce, age (>18), sex, and serum creatinine. If anyof the needed data elements are mi ssing the Laboratory cannot compute an kasia mation of the glomerul ar filtration rate . CREATININE (test code 0.6 mg/dL 0.5-1.0 N = CREAT) CALCIUM (test code = 8.7 mg/dL 8.4-10.2 N CA) CBC W/AUTO [id number] 07:03:00 Test Item Value Reference Range Interpretation Comments WHITE BLOOD CELL (test code = 7.2 x10 3/uL 5.0-12.0 N WBC) RED BLOOD CELL (test code = 3.64 x10 6/uL 4.20-5.40 L RBC) HEMOGLOBIN (test code = HGB) 10.3 g/dL 12.0-16.0 L HEMATOCRIT (test code = HCT) 37.1 % 36.0-46.0 N MEAN CELL VOLUME (test code = 102 fL 81-99 H MCV) MEAN CELL HGB (test code = MCH) 28.3 pg 27-31 N MEAN CELL HGB CONCENTRATION 27.8 g/dL 33-37 L (test code = MCHC) RED CELL DISTRIBUTION WIDTH 13.8 % 11.5-15.5 N (test code = RDW) PLATELET COUNT (test code = 346 x10 3/uL 130-400 N PLT) MEAN PLATELET VOLUME (test code 9.5 fL 9.4-16.4 N = MPV) NEUTROPHIL % (test code = NT%) 48.9 % 43-65 N IMMATURE GRANULOCYTE % (test 0.3 % 0.0-2.0 N code = IG%) LYMPHOCYTE % (test code = LY%) 34.4 % 20.5-45.5 N MONOCYTE % (test code = MO%) 8.2 % 5.5-11.7 N EOSINOPHIL % (test code = EO%) 7.5 % 0.9-2.9 H BASOPHIL % (test code = BA%) 0.7 % 0.2-1.0 N NUCLEATED RBC % (test code = 0.0 % 0-1.0 N NRBC%) NEUTROPHIL # (test code = NT#) 3.51 x10 3/uL 2.2-4.8 N IMMATURE GRANULOCYTE # (test 0.02 x10 3/uL 0-0.03 N code = IG#) LYMPHOCYTE # (test code = LY#) 2.47 x10 3/uL 1.3-2.9 N MONOCYTE # (test code = MO#) 0.59 x10 3/uL 0.3-0.8 N EOSINOPHIL # (test code = EO#) 0.54 x10 3/uL 0.0-0.2 H BASOPHIL # (test code = BA#) 0.05 x10 3/uL 0.0-0.1 N BASIC METABOLIC [id number] 05:56:00 Test Item Value Reference Range Interpretation Comments SODIUM (test code = 139 mmol/L 137-145 N NA) POTASSIUM (test code 3.9 mmol/L 3.4-5.0 N = K) CHLORIDE (test code = 113 mmol/L 98-107 H CL) CARBON DIOXIDE (test 22 mmol/L 22-30 N code = CO2) GLUCOSE (test code = 90 mg/dL 74-106 N GLU) BLOOD UREA NITROGEN 14 mg/dL 7-17 N (test code = BUN) GLOMERULAR FILTRATION 131 >60 The es timated RATE (test code = glomerular filtration GFR) rate is compute d usingpatient ra ce, age (>18), sex, and serum creatinine. If anyof the needed data elements are mi ssing the Laboratory cannot compute an kasia mation of the glomerul ar filtration rate . CREATININE (test code 0.6 mg/dL 0.5-1.0 N = CREAT) CALCIUM (test code = 8.4 mg/dL 8.4-10.2 N CA) CBC W/AUTO [id number] 05:42:00 Test Item Value Reference Range Interpretation Comments WHITE BLOOD CELL (test code = 6.6 x10 3/uL 5.0-12.0 N WBC) RED BLOOD CELL (test code = 3.62 x10 6/uL 4.20-5.40 L RBC) HEMOGLOBIN (test code = HGB) 10.2 g/dL 12.0-16.0 L HEMATOCRIT (test code = HCT) 32.4 % 36.0-46.0 L MEAN CELL VOLUME (test code = 90 fL 81-99 N MCV) MEAN CELL HGB (test code = MCH) 28.2 pg 27-31 N MEAN CELL HGB CONCENTRATION 31.5 g/dL 33-37 L (test code = MCHC) RED CELL DISTRIBUTION WIDTH 13.5 % 11.5-15.5 N (test code = RDW) PLATELET COUNT (test code = 351 x10 3/uL 130-400 PLT) MEAN PLATELET VOLUME (test code 9.5 fL 9.4-16.4 N = MPV) NEUTROPHIL % (test code = NT%) 40.8 % 43-65 L IMMATURE GRANULOCYTE % (test 0.3 % 0.0-2.0 N code = IG%) LYMPHOCYTE % (test code = LY%) 41.5 % 20.5-45.5 N MONOCYTE % (test code = MO%) 7.9 % 5.5-11.7 N EOSINOPHIL % (test code = EO%) 8.6 % 0.9-2.9 H BASOPHIL % (test code = BA%) 0.9 % 0.2-1.0 N NUCLEATED RBC % (test code = 0.0 % 0-1.0 N NRBC%) NEUTROPHIL # (test code = NT#) 2.70 x10 3/uL 2.2-4.8 N IMMATURE GRANULOCYTE # (test 0.02 x10 3/uL 0-0.03 N code = IG#) LYMPHOCYTE # (test code = LY#) 2.74 x10 3/uL 1.3-2.9 N MONOCYTE # (test code = MO#) 0.52 x10 3/uL 0.3-0.8 N EOSINOPHIL # (test code = EO#) 0.57 x10 3/uL 0.0-0.2 H BASOPHIL # (test code = BA#) 0.06 x10 3/uL 0.0-0.1 N LIPID PROFILE (CORONARY RISK)2020-01-16 03:11:00 Test Item Value Reference Range Interpretation Comments TRIGLYCERIDES (test 162 mg/dL TRIGLYCE RIDES code = TRIG) REFERENCE RANGE:Normal: < 150 mg/dLBorderline High: 150-199 mg/dLHigh: 200- 499 mg/dLVery High: >=500 mg/dL CHOLESTEROL (test 164 mg/dL CHOLESTERO L code = CHOL) REFERENCE RANGE:DESIRABLE : < 200 mg/dLBORDER LINE: 200-239 mg/dLHI GH: >=240 mg/dL HDL CHOLESTEROL (test 40 mg/dL 40-59 N code = HDL) LIPOPROTEIN LDL (test 105.60 mg/dL 32-99 H code = LDLC) CORONARY RISK FACTOR 4.10 (test code = RISK) CHOL/HD L RISK MALE: 1/2 AVG 3.43 FEMALE: 1/2 AVG 3.27 AVG 4.97 AVG 4.44 2X AVG 9.55 2X AVG 7 .05 3X A VG 23.39 3X AVG 11.04~~~~~~~~~~ ~~~~~ ~~~~~~~~~~~~~~~ ~~~~~ ~~~~~~~~~~~~~~~ ~~~~~ ~~~~~National Cholesterol Education (NCEP ) Guidelines:~~~~ ~~~~~ ~~~~~~~~~~~~~~~ ~~~~~ ~~~~~~~~~~~~~~~ ~~~~~ ~~~~~~~~~~~ HDL Cholesterol<4 0mg/d L: HDL Choleste rol (Major risk fac tor for CHD)>60mg/d L: HDL Cholesterol (Negative risk factor for CHD)40-59mg/dL: Borderline Risk * *LDL Cholesterol<1 00mg/ dL: Desirable L DL-C haozjnktxaoyq71 0-159 mg/dL: Borderli ne High Risk LDL-C qixzrobmwbncr96 0-189 mg/dL: High ris k LDL-C concentra tion HDL-LDL Cholest shubham is affected by a number of facto rs suchas smoking, age and sex.~~~~~~~~~~~ ~~~~~ ~~~~~~~~~~~~~~~ ~~~~~ ~~~~~~~~~~~~~~~ ~~~~~ ~~~~ LIPID PROFILE (CORONARY RISK)2020-01-16 03:02:00 Test Item Value Reference Range Interpretation Comments TRIGLYCERIDES (test 162 mg/dL TRIGLYCE RIDES code = TRIG) REFERENCE RANGE:Normal: < 150 mg/dLBorderline High: 150-199 mg/dLHi gh: 200-499 mg/dLVe ry High: >=500 mg/ dL CHOLESTEROL (test code 164 mg/dL ANITA STEROL REFERENCE = CHOL) RANGE:DESIRABLE : < 200 mg/dLBORDERLINE : 200-239 mg/dLHI GH: >=240 mg/dL HDL CHOLESTEROL (test 40 mg/dL 40-59 N code = HDL) LIPOPROTEIN LDL (test mg/dL 32-99 code = LDLC) CORONARY RISK FACTOR 4.10 (test code = RISK) CHOL/HDL RISK MALE: 1/2 AVG 3.43 FEMALE: 1/2 AV G 3.27 AVG 4.97 AVG 4.44 2X AVG 9.55 2X AVG 7.05 3X AVG 23.39 3X AVG 11.04~~~~~~~~~~ ~~~~~~~ ~~~~~~~~~~~~~~~ ~~~~~~~ ~~~~~~~~~~~~~~~ ~~~~~~[facility] Cholest shubham Education (NCEP ) Guidelines:~~~~ ~~~~~~~ ~~~~~~~~~~~~~~~ ~~~~~~~ ~~~~~~~~~~~~~~~ ~~~~~~~ ~~~~~ HDL Cholesterol<4 0mg/dL: HDL Cholesterol (Major risk factor for CHD)>60mg/dL: H DL Cholesterol (Ne gative risk factor for CHD)40-59mg/dL: Borderline Risk L DL Cholesterol<1 00mg/dL : Desirable LDL -C [id number] 0-159mg /dL: Borderline High Risk LDL-C gdftmenchvssn98 0-189mg /dL: High risk LDL-C concentration H DL-LDL Cholesterol is affected by a n umber of factors such as smoking, age an d sex.~~~~~~~~~~~ ~~~~~~~ ~~~~~~~~~~~~~~~ ~~~~~~~ ~~~~~~~~~~~~~~~ ~~~~~ LACTIC [id number] 17:52:00 Test Item Value Reference Range Interpretation Comments LACTIC ACID (test code = LACT) 1.6 mmol/L 0.7-2.0 N Coronavirus 2019 nCoV [id number] 17:03:00 Test Item Value Reference Range Interpretation Comments Coronavirus 2019 Negative NEGATIVE This test h as been nCoV Bedside (test authorize d by FDA under code = [id number]) an EUA for use byauthorized laboratories; This test has been author ized only for the detecti on ofnucleic acid from SARS-CoV-2, not for any other viruses orpathogens; an d This test is only au thorized for the duratio n of thedeclaration that circumstances e xist justifying theauthorizatio n of emergency use o f in vitro diagnostic test sfor detection and/o r diagnosis of CO VID-19 under Alfuquh85 4(b)(1) of the Act, 21 U.S .C. 360bbb-3(b)(1), unless theauthorizatio n is terminated or r evoked sooner. LACTIC [id number] 16:44:00 Test Item Value Reference Range Interpretation Comments LACTIC ACID (test 2.1 mmol/L 0.7-2.0 HH Critical V alue reported code = LACT) toFirst Name:[id number] Last Name:CHEL FABIANA [facility] [employer] Bush.LAB.LAS1, on 01/15/20, @ 164 4. UA RFLX MICR CULT IF [id number] 16:42:00 Test Item Value Reference Range Interpretation Comments UA COLOR (test code = Yellow Yellow COLU) UA APPEARANCE (test Cloudy Clear A code = APPU) UA GLUCOSE DIPSTICK Negative Negative (test code = DGLUU) UA BILIRUBIN DIPSTICK Negative Negative (test code = BILU) UA KETONE DIPSTICK Negative mg/dL Negative (test code = KETU) UA SPECIFIC GRAVITY 1.034 <1.030 A (test code = SGU) UA BLOOD DIPSTICK Negative Negative (test code = CATHERINE) UA PH DIPSTICK (test 5.0 5.0-8.0 code = OG) UA PROTEIN DIPSTICK 100 (2+) mg/dL Negative A (test code = PROU) UA UROBILINOGEN Negative mg/dL Negative DIPSTICK (test code = URO) UA NITRITE DIPSTICK Negative Negative (test code = EDVIN) UA LEUKOCYTE ESTERASE 2+ Negative A DIPSTICK (test code = LEUU) UA WBC (test code = 21-30 /HPF <4-5 A >10 WBC/ HPF = WBCUR) PYURIA PRESENT URINE CULTURE PROCESS ED UA RBC (test code = 11-20 /HPF <4-5 A RBCU) UA BACTERIA (test Rare /HPF None-Rare code = BACU) UA SQUAMOUS CELLS >25 (MANY) /HPF 0-5 (RARE) A (test code = SQU) UA MUCUS (test code = 4+ /LPF <Rare A MUCU) Indication for culture: Dysuria/FrequencySOURCE OF URINE: CLEAN CATCHLACTIC [id number] 15:54:00 Test Item Value Reference Range Interpretation Comments LACTIC ACID (test 2.6 mmol/L 0.7-2.0 HH Critical V alue reported code = LACT) toFirst Name:[place] [id number] Last Name:[facility] [employer] Love C.LAB.LAS1, on 01/15/20, @ 155 4. BASIC METABOLIC [id number] 15:50:00 Test Item Value Reference Range Interpretation Comments SODIUM (test code = 140 mmol/L 137-145 N NA) POTASSIUM (test code 3.9 mmol/L 3.4-5.0 N = K) CHLORIDE (test code = 110 mmol/L 98-107 H CL) CARBON DIOXIDE (test 17 mmol/L 22-30 L code = CO2) GLUCOSE (test code = 106 mg/dL 74-106 N GLU) BLOOD UREA NITROGEN 14 mg/dL 7-17 N (test code = BUN) GLOMERULAR FILTRATION 94 >60 The es timated RATE (test code = glomerular filtration GFR) rate is compute d usingpatient ra ce, age (>18), sex, and serum creatinine. If anyof the needed data elements are mi ssing the Laboratory cannot compute an kasia mation of the glomerul ar filtration rate . CREATININE (test code 0.8 mg/dL 0.5-1.0 N = CREAT) CALCIUM (test code = 9.6 mg/dL 8.4-10.2 N CA) LIVER FUNCTION [id number] 15:50:00 Test Item Value Reference Range Interpretation Comments TOTAL PROTEIN (test 7.6 g/dL 6.3-8.2 N code = PROT) ALBUMIN (test code = 4.3 g/dL 3.5-5.0 N ALB) BILIRUBIN TOTAL 0.5 mg/dL 0.2-1.3 N "A positive bias may (test code = BILT) occur for patients taking Eltrombo pag(a bone marrow sti mulant used to treat thrombocytopeni a andaplastic ane albertina)." BILIRUBIN CONJUGATED 0 mg/dL 0-0.3 N "A posi tive bias may (test code = BILCON) occur f or patients taking Eltrombo pag(a bone marrow sti mulant used to treat thrombocytopeni a andaplastic ane albertina)." CON JUGATED BILIRUBIN IS TH E REPLACEMENT ASS AY FOR DIRECTBILIRUBIN . BILIRUBIN 0.5 mg/dL 0-1.1 N UNCONJUGATED (test code = BILUNC) SGOT/AST (test code 40 U/L 15-46 N = AST) SGPT/ALT (test code 27 U/L 0-34 N = ALT) ALKALINE PHOSPHATASE 93 U/L 38-126 N (test code = ALKP) [id number] 15:50:00 Test Item Value Reference Range Interpretation Comments LIPASE (test code = LIP) 47 U/L 23-300 N PROTHROMBIN [id number] 15:50:00 Test Item Value Reference Range Interpretation Comments PROTHROMBIN TIME 11.7 SECONDS 9.2-12.1 N PATIENT (test code = PTP) INTERNATIONAL NORMAL 1.1 The INR is to be used RATIO (test code = only for monitoring INR) ORAL ANTICOAGULANTTH ERAPY. Indicati on INR Value1. Prophylaxis/gwyn atment of: Venous Thrombosis, Pul monary Embolism 2.0 - 3.02. Preventi on of systemic emboli sm from: Tiss ue heart valves 2.0 - 3.0 Acute myocardial infa rction (to present systemic emboli sm)* 2.0 - 3.0 Valvular heart disease 2.0 - 3.0 Atrial fibrillation 2.0 - 3.03. Avionics Integration Engineer al prosthetic valv es (high risk) 2.5 - 3.5 * If oral anticoagulant t herapy is elected to preventrecurren t myocardial infa rction, an INR of 2.5-3 .5 isrecommended, consistent with Food and Drug Administrationr ecommen dations. THROMBOPLASTIN TIME [id number] 15:50:00 Test Item Value Reference Range Interpretation Comments THROMBOPLASTIN TIME 31.8 SECONDS 23.4-37.0 N Therap eutic Range PARTIAL (test code = for Hep katherine PTT) EFFECTIVE Heparin IU/mL aPT T Seconds0.3 64.30.7 88.8 BASIC METABOLIC [id number] 15:49:00 Test Item Value Reference Range Interpretation Comments SODIUM (test code = 140 mmol/L 137-145 N NA) POTASSIUM (test code 3.9 mmol/L 3.4-5.0 N = K) CHLORIDE (test code = 110 mmol/L 98-107 H CL) CARBON DIOXIDE (test 17 mmol/L 22-30 L code = CO2) GLUCOSE (test code = 106 mg/dL 74-106 N GLU) BLOOD UREA NITROGEN 14 mg/dL 7-17 N (test code = BUN) GLOMERULAR FILTRATION 94 >60 The es timated RATE (test code = glomerular filtration GFR) rate is compute d usingpatient ra ce, age (>18), sex, and serum creatinine. If anyof the needed data elements are mi ssing the Laboratory cannot compute an kasia mation of the glomerul ar filtration rate . CREATININE (test code 0.8 mg/dL 0.5-1.0 N = CREAT) CALCIUM (test code = 9.6 mg/dL 8.4-10.2 N CA) LIVER FUNCTION [id number] 15:49:00 Test Item Value Reference Range Interpretation Comments TOTAL PROTEIN (test 7.6 g/dL 6.3-8.2 N code = PROT) ALBUMIN (test code = 4.3 g/dL 3.5-5.0 N ALB) BILIRUBIN TOTAL 0.5 mg/dL 0.2-1.3 N "A positive bias may (test code = BILT) occur for patients taking Eltrombo pag(a bone marrow sti mulant used to treat thrombocytopeni a andaplastic ane albertina)." BILIRUBIN CONJUGATED 0 mg/dL 0-0.3 N "A posi tive bias may (test code = BILCON) occur f or patients taking Eltrombo pag(a bone marrow sti mulant used to treat thrombocytopeni a andaplastic ane albertina)." CON JUGATED BILIRUBIN IS TH E REPLACEMENT ASS AY FOR DIRECTBILIRUBIN . BILIRUBIN 0.5 mg/dL 0-1.1 N UNCONJUGATED (test code = BILUNC) SGOT/AST (test code 40 U/L 15-46 N = AST) SGPT/ALT (test code U/L 0-34 = ALT) ALKALINE PHOSPHATASE 93 U/L 38-126 N (test code = ALKP) [id number] 15:49:00 Test Item Value Reference Range Interpretation Comments LIPASE (test code = LIP) U/L 23-300 CBC W/AUTO [id number] 15:30:00 Test Item Value Reference Range Interpretation Comments WHITE BLOOD CELL (test code = 10.5 x10 3/uL 5.0-12.0 N WBC) RED BLOOD CELL (test code = 4.06 x10 6/uL 4.20-5.40 L RBC) HEMOGLOBIN (test code = HGB) 11.4 g/dL 12.0-16.0 L HEMATOCRIT (test code = HCT) 36.2 % 36.0-46.0 N MEAN CELL VOLUME (test code = 89 fL 81-99 N MCV) MEAN CELL HGB (test code = MCH) 28.1 pg 27-31 N MEAN CELL HGB CONCENTRATION 31.5 g/dL 33-37 L (test code = MCHC) RED CELL DISTRIBUTION WIDTH 13.5 % 11.5-15.5 N (test code = RDW) PLATELET COUNT (test code = 454 x10 3/uL 130-400 H PLT) MEAN PLATELET VOLUME (test code 9.8 fL 9.4-16.4 N = MPV) NEUTROPHIL % (test code = NT%) 64.0 % 43-65 N IMMATURE GRANULOCYTE % (test 0.4 % 0.0-2.0 N code = IG%) LYMPHOCYTE % (test code = LY%) 25.1 % 20.5-45.5 N MONOCYTE % (test code = MO%) 5.0 % 5.5-11.7 L EOSINOPHIL % (test code = EO%) 4.9 % 0.9-2.9 H BASOPHIL % (test code = BA%) 0.6 % 0.2-1.0 N NUCLEATED RBC % (test code = 0.0 % 0-1.0 N NRBC%) NEUTROPHIL # (test code = NT#) 6.73 x10 3/uL 2.2-4.8 H IMMATURE GRANULOCYTE # (test 0.04 x10 3/uL 0-0.03 H code = IG#) LYMPHOCYTE # (test code = LY#) 2.64 x10 3/uL 1.3-2.9 N MONOCYTE # (test code = MO#) 0.53 x10 3/uL 0.3-0.8 N EOSINOPHIL # (test code = EO#) 0.51 x10 3/uL 0.0-0.2 H BASOPHIL # (test code = BA#) 0.06 x10 3/uL 0.0-0.1 N - XR CHEST 1 [id number] 15:03:00 [facility] : 1995 Sex: F [place]: St: DIS Name: NATIVIDAD GREGG [facility] : 1995 Age/S: 24/F [address] Unit #: [id number] Loc: C.[address] [place] [address] Phys: Victorino Schofield Acct: [id number] Dis Date: [id number] Status: DIS IN PHONE #: [phone] Exam Date: 01/15/2020 6690 FAX #: [phone] Reason: CODE SEPSIS EXAMS: CPT CODE: [id number] XR CHEST 1 V 45874 EXAM: Portable chest x-ray, one view INDICATION: CODE SEPSIS kidney pain, diagnosed with kidney stone LOCATION CODE: C3 COMPARISON: None TECHNIQUE: Single Portable AP upright view of the chest DISCUSSION: Moderate increased bilateral perihilar marking is seen. Peribronchial thickening is noted. Interstitial thickening bilaterally are noted. Heart and mediastinal contours unremarkable. No pneumothorax or pleural effusion seen. Osseous structures are within normal limit. IMPRESSION: 1. Interstitial thickening suggest bronchitis and/or viral pneumonitis. at 1503 Reported and signed by: Mu Vallejo M.D. CC: Technologist: HARJEET CASE; STUDENT 2ND YEAR Trnilrd Date/Time/By: 01/15/2020 (2762) : By: Jaydon PAGE 1 Signed Report [place]: [facility]: DIS Name: NATIVIDAD GREGG : 1995 Age/S: [address] Unit #: [id number] Loc: [place] [address] Phys: Mason Schofield Acct: [id number] Dis Date: [id number] Status: DIS IN PHONE #: [phone] Exam Date: 01/15/2020 8834 FAX #: [phone] Reason: CODE SEPSIS EXAMS: CPT CODE: [id number] XR CHEST 1 V 34815 <Continued> Orig Print D/T: S: 01/15/2020 (1507) PAGE 2 Signed Report- XR CHEST 1 [id number] 15:03:00[facility]: NATIVIDAD GREGG : 1995 Sex: F [place]: St: PRE Name: NATIVIDAD GREGG [facility] [place] : 1995 Age/S: 24[address] Unit #: [id number] Loc: [place] [address] Phys: Victorino Schofield Acct: [id number] Dis Date: Status: PRE ER PHONE #: [phone] Exam Date: 01/15/2020 1450 FAX #: [phone] Reason: CODE SEPSIS EXAMS: CPT CODE: [id number] XR CHEST 1 V 11617 EXAM: Portable chest x-ray, one view INDICATION: CODE SEPSIS kidney pain, diagnosed with kidney stone LOCATION CODE: C3 COMPARISON: None TECHNIQUE: Single Portable AP upright view of the chest DISCUSSION: Moderate increased bilateral perihilar marking is seen. Peribronchial thickening is noted. Interstitial thickening bilaterally are noted. Heart and mediastinal contours unremarkable. No pneumothorax or pleural effusion seen. Osseous structures are within normal limit. IMPRESSION: 1. Interstitial thickening suggest bronchitis and/or viral pneumonitis. at 1503 Reported and signed by: Mu Vallejo M.D. CC: Technologist: MANPREET COSBY; STUDENT 2ND YEAR [facility] Date/Time/By: 01/15/2020 (4956) : By: Jaydon PAGE 1 Signed Report [place]: St: PRE Name: NATIVIDAD GREGG [facility] : 1995 Age/S: 24/F [address] Unit #: [id number] Loc: [place] [address] Phys: Mason Schofield Acct: [id number] Dis Date: Status: PRE ER PHONE #: [phone] Exam Date: 01/15/2020 1450 FAX #: [phone] Reason: CODE SEPSIS EXAMS: CPT CODE: [id number] XR CHEST 1 V 68468 <Continued> Orig Print D/T: S: 01/15/2020 (1507) PAGE 2 Signed ReportLACTIC [id number] 01:50:00 Test Item Value Reference Range Interpretation Comments LACTIC ACID (test code = LACT) 1.2 mmol/L 0.7-2.0 N COMPREHENSIVE METABOLIC [id number] 00:45:00 Test Item Value Reference Range Interpretation Comments SODIUM (test code = 140 mmol/L 137-145 N NA) POTASSIUM (test code 3.9 mmol/L 3.4-5.0 N = K) CHLORIDE (test code 107 mmol/L 98-107 N = CL) CARBON DIOXIDE (test 22 mmol/L 22-30 N code = CO2) GLUCOSE (test code = 86 mg/dL 74-106 N GLU) BLOOD UREA NITROGEN 14 mg/dL 7-17 N (test code = BUN) GLOMERULAR 94 >60 The estimated FILTRATION RATE glomerular f iltration (test code = GFR) rate is co mputed usingpatient ra ce, age (>18), sex, and serum creatinine. If anyof the needed data elements are mi ssing the Laboratory cannot compute an kasia mation of the glomerul ar filtration rate . CREATININE (test 0.8 mg/dL 0.5-1.0 N code = CREAT) TOTAL PROTEIN (test 8.1 g/dL 6.3-8.2 N code = PROT) ALBUMIN (test code = 4.6 g/dL 3.5-5.0 N ALB) CALCIUM (test code = 9.9 mg/dL 8.4-10.2 N CA) BILIRUBIN TOTAL 0.2 mg/dL 0.2-1.3 N "A positive bias may (test code = BILT) occur for patients taking Eltrombo pag(a bone marrow sti mulant used to treat thrombocytopeni a andaplastic ane albertina)." BILIRUBIN CONJUGATED 0 mg/dL 0-0.3 N "A posi tive bias may (test code = BILCON) occur f or patients taking Eltrombo pag(a bone marrow sti mulant used to treat thrombocytopeni a andaplastic ane albertina)." C ONJUGATE D BILIRUBIN IS THE REPLACEMENT ASS AY FOR DIRECTBILIRUBIN . BILIRUBIN 0.1 mg/dL 0-1.1 N UNCONJUGATED (test code = BILUNC) SGOT/AST (test code 30 U/L 15-46 N = AST) SGPT/ALT (test code 27 U/L 0-34 N = ALT) ALKALINE PHOSPHATASE 87 U/L 38-126 N (test code = ALKP) HCG SERUM [id number] 00:45:00 Test Item Value Reference Range Interpretation Comments HCG SERUM QUAL (test code = HCGQL) NEGATIVE NEGATIVE LACTIC [id number] 00:13:00 Test Item Value Reference Range Interpretation Comments LACTIC ACID (test 2.3 mmol/L 0.7-2.0 HH Critical V alue reported code = LACT) toFirst Name: [id number] Last Name:CHEL JUNG [employer] Love C.LAB.WR, on , @ 0013. UA RFLX MICR CULT IF [id number] 00:06:00 Test Item Value Reference Range Interpretation Comments UA COLOR (test code = Yellow Yellow COLU) UA APPEARANCE (test Cloudy Clear A code = APPU) UA GLUCOSE DIPSTICK Negative Negative (test code = DGLUU) UA BILIRUBIN DIPSTICK Negative Negative (test code = BILU) UA KETONE DIPSTICK Negative mg/dL Negative (test code = KETU) UA SPECIFIC GRAVITY 1.027 <1.030 (test code = SGU) UA BLOOD DIPSTICK Negative Negative (test code = CATHERINE) UA PH DIPSTICK (test 6.0 5.0-8.0 code = OG) UA PROTEIN DIPSTICK 30 (1+) mg/dL Negative A (test code = PROU) UA UROBILINOGEN Negative mg/dL Negative DIPSTICK (test code = URO) UA NITRITE DIPSTICK Negative Negative (test code = EDVIN) UA LEUKOCYTE ESTERASE 3+ Negative A DIPSTICK (test code = LEUU) UA WBC (test code = 21-30 /HPF <4-5 A >10 WBC/ HPF = WBCUR) PYURIA PRESENT URINE CULTURE PROCESS ED UA RBC (test code = 11-20 /HPF <4-5 A RBCU) UA BACTERIA (test None /HPF None-Rare code = BACU) UA SQUAMOUS CELLS >25 (MANY) /HPF 0-5 (RARE) A (test code = SQU) UA MUCUS (test code = Rare /LPF <Rare A MUCU) Indication for culture: Dysuria/FrequencySOURCE OF URINE: CLEAN CATCH COMPREHENSIVE METABOLIC [id number] 23:43:00 Test Item Value Reference Range Interpretation Comments SODIUM (test code = 140 mmol/L 137-145 N NA) POTASSIUM (test code 3.9 mmol/L 3.4-5.0 N = K) CHLORIDE (test code 107 mmol/L 98-107 N = CL) CARBON DIOXIDE (test 22 mmol/L 22-30 N code = CO2) GLUCOSE (test code = 86 mg/dL 74-106 N GLU) BLOOD UREA NITROGEN 14 mg/dL 7-17 N (test code = BUN) GLOMERULAR 94 >60 The estimated FILTRATION RATE glomerular f iltration (test code = GFR) rate is co mputed usingpatient ra ce, age (>18), sex, and serum creatinine. If anyof the needed data elements are mi ssing the Laboratory cannot compute an kasia mation of the glomerul ar filtration rate . CREATININE (test 0.8 mg/dL 0.5-1.0 N code = CREAT) TOTAL PROTEIN (test 8.1 g/dL 6.3-8.2 N code = PROT) ALBUMIN (test code = 4.6 g/dL 3.5-5.0 N ALB) CALCIUM (test code = 9.9 mg/dL 8.4-10.2 N CA) BILIRUBIN TOTAL 0.2 mg/dL 0.2-1.3 N "A positive bias may (test code = BILT) occur for patients taking Eltrombo pag(a bone marrow sti mulant used to treat thrombocytopeni a andaplastic ane albertina)." BILIRUBIN CONJUGATED 0 mg/dL 0-0.3 N "A posi tive bias may (test code = BILCON) occur f or patients taking Eltrombo pag(a bone marrow sti mulant used to treat thrombocytopeni a andaplastic ane albertina)." C ONJUGATE D BILIRUBIN IS THE REPLACEMENT ASS AY FOR DIRECTBILIRUBIN . BILIRUBIN 0.1 mg/dL 0-1.1 N UNCONJUGATED (test code = BILUNC) SGOT/AST (test code 30 U/L 15-46 N = AST) SGPT/ALT (test code 27 U/L 0-34 N = ALT) ALKALINE PHOSPHATASE 87 U/L 38-126 N (test code = ALKP) HCG SERUM [id number] 23:43:00 Test Item Value Reference Range Interpretation Comments HCG SERUM QUAL (test code = HCGQL) NEGATIVE CBC W/AUTO [id number] 23:38:00 Test Item Value Reference Range Interpretation Comments WHITE BLOOD CELL (test code = 12.8 x10 3/uL 5.0-12.0 H WBC) RED BLOOD CELL (test code = 4.09 x10 6/uL 4.20-5.40 L RBC) HEMOGLOBIN (test code = HGB) 11.9 g/dL 12.0-16.0 L HEMATOCRIT (test code = HCT) 36.7 % 36.0-46.0 N MEAN CELL VOLUME (test code = 90 fL 81-99 N MCV) MEAN CELL HGB (test code = MCH) 29.1 pg 27-31 N MEAN CELL HGB CONCENTRATION 32.4 g/dL 33-37 L (test code = MCHC) RED CELL DISTRIBUTION WIDTH 13.5 % 11.5-15.5 N (test code = RDW) PLATELET COUNT (test code = 486 x10 3/uL 130-400 H PLT) MEAN PLATELET VOLUME (test code 9.5 fL 9.4-16.4 N = MPV) NEUTROPHIL % (test code = NT%) 54.9 % 43-65 N IMMATURE GRANULOCYTE % (test 0.2 % 0.0-2.0 N code = IG%) LYMPHOCYTE % (test code = LY%) 34.1 % 20.5-45.5 N MONOCYTE % (test code = MO%) 6.0 % 5.5-11.7 N EOSINOPHIL % (test code = EO%) 4.3 % 0.9-2.9 H BASOPHIL % (test code = BA%) 0.5 % 0.2-1.0 N NUCLEATED RBC % (test code = 0.0 % 0-1.0 N NRBC%) NEUTROPHIL # (test code = NT#) 7.00 x10 3/uL 2.2-4.8 H IMMATURE GRANULOCYTE # (test 0.03 x10 3/uL 0-0.03 N code = IG#) LYMPHOCYTE # (test code = LY#) 4.35 x10 3/uL 1.3-2.9 H MONOCYTE # (test code = MO#) 0.77 x10 3/uL 0.3-0.8 N EOSINOPHIL # (test code = EO#) 0.55 x10 3/uL 0.0-0.2 H BASOPHIL # (test code = BA#) 0.06 x10 3/uL 0.0-0.1 N LACTIC [id number] 19:19:00 Test Item Value Reference Range Interpretation Comments LACTIC ACID (test code = LACT) 1.6 mmol/L 0.7-2.0 N UA RFLX MICR CULT IF [id number] 18:41:00 Test Item Value Reference Range Interpretation Comments UA COLOR (test code = Yellow Yellow COLU) UA APPEARANCE (test Cloudy Clear A code = APPU) UA GLUCOSE DIPSTICK Negative Negative (test code = DGLUU) UA BILIRUBIN DIPSTICK Negative Negative (test code = BILU) UA KETONE DIPSTICK Negative mg/dL Negative (test code = KETU) UA SPECIFIC GRAVITY 1.018 <1.030 (test code = SGU) UA BLOOD DIPSTICK Negative Negative (test code = CATHERINE) UA PH DIPSTICK (test 7.0 5.0-8.0 code = OG) UA PROTEIN DIPSTICK NEGATIVE mg/dL Negative (test code = PROU) UA UROBILINOGEN Negative mg/dL Negative DIPSTICK (test code = URO) UA NITRITE DIPSTICK Negative Negative (test code = EDVIN) UA LEUKOCYTE ESTERASE 1+ Negative A DIPSTICK (test code = LEUU) UA WBC (test code = 6-10 /HPF <4-5 A <10 WBC/ HPF = WBCUR) PYURIA ABSENT URINE CULTURE NOT INDICATED UA RBC (test code = 0-3 /HPF <4-5 RBCU) UA BACTERIA (test Rare /HPF None-Rare code = BACU) UA SQUAMOUS CELLS >25 (MANY) /HPF 0-5 (RARE) A (test code = SQU) UA MUCUS (test code = Rare /LPF <Rare A MUCU) Indication for culture: Flank PainSOURCE OF URINE: CLEAN CATCHUR HCG QUAL 2020-01-13 18:41:00 Test Item Value Reference Range Interpretation Comments UR HCG QUAL (test code = HCGQLU) NEGATIVE NEGATIVE Indication for culture: Flank PainSOURCE OF URINE: CLEAN CATCHBASIC METABOLIC [id number] 18:39:00 Test Item Value Reference Range Interpretation Comments SODIUM (test code = 138 mmol/L 137-145 N NA) POTASSIUM (test code 3.9 mmol/L 3.4-5.0 N = K) CHLORIDE (test code = 104 mmol/L 98-107 N CL) CARBON DIOXIDE (test 22 mmol/L 22-30 N code = CO2) GLUCOSE (test code = 99 mg/dL 74-106 N GLU) BLOOD UREA NITROGEN 11 mg/dL 7-17 N (test code = BUN) GLOMERULAR FILTRATION 109 >60 The es timated RATE (test code = glomerular filtration GFR) rate is compute d usingpatient ra ce, age (>18), sex, and serum creatinine. If anyof the needed data elements are mi ssing the Laboratory cannot compute an kasia mation of the glomerul ar filtration rate . CREATININE (test code 0.7 mg/dL 0.5-1.0 N = CREAT) CALCIUM (test code = 10.0 mg/dL 8.4-10.2 N CA) LIVER FUNCTION [id number] 18:39:00 Test Item Value Reference Range Interpretation Comments TOTAL PROTEIN (test 8.3 g/dL 6.3-8.2 H code = PROT) ALBUMIN (test code = 4.9 g/dL 3.5-5.0 N ALB) BILIRUBIN TOTAL 0.3 mg/dL 0.2-1.3 N "A positive bias may (test code = BILT) occur for patients taking Eltrombo pag(a bone marrow sti mulant used to treat thrombocytopeni a andaplastic ane albertina)." BILIRUBIN CONJUGATED 0 mg/dL 0-0.3 N "A posi tive bias may (test code = BILCON) occur f or patients taking Eltrombo pag(a bone marrow sti mulant used to treat thrombocytopeni a andaplastic ane albertina)." CON JUGATED BILIRUBIN IS TH E REPLACEMENT ASS AY FOR DIRECTBILIRUBIN . BILIRUBIN 0.1 mg/dL 0-1.1 N UNCONJUGATED (test code = BILUNC) SGOT/AST (test code 29 U/L 15-46 N = AST) SGPT/ALT (test code 25 U/L 0-34 N = ALT) ALKALINE PHOSPHATASE 96 U/L 38-126 N (test code = ALKP) [id number] 18:39:00 Test Item Value Reference Range Interpretation Comments LIPASE (test code = LIP) 81 U/L 23-300 N BASIC METABOLIC [id number] 18:37:00 Test Item Value Reference Range Interpretation Comments SODIUM (test code = 138 mmol/L 137-145 N NA) POTASSIUM (test code 3.9 mmol/L 3.4-5.0 N = K) CHLORIDE (test code = 104 mmol/L 98-107 N CL) CARBON DIOXIDE (test 22 mmol/L 22-30 N code = CO2) GLUCOSE (test code = 99 mg/dL 74-106 N GLU) BLOOD UREA NITROGEN 11 mg/dL 7-17 N (test code = BUN) GLOMERULAR FILTRATION 109 >60 The es timated RATE (test code = glomerular filtration GFR) rate is compute d usingpatient ra ce, age (>18), sex, and serum creatinine. If anyof the needed data elements are mi ssing the Laboratory cannot compute an kasia mation of the glomerul ar filtration rate . CREATININE (test code 0.7 mg/dL 0.5-1.0 N = CREAT) CALCIUM (test code = 10.0 mg/dL 8.4-10.2 N CA) LIVER FUNCTION [id number] 18:37:00 Test Item Value Reference Range Interpretation Comments TOTAL PROTEIN (test 8.3 g/dL 6.3-8.2 H code = PROT) ALBUMIN (test code = 4.9 g/dL 3.5-5.0 N ALB) BILIRUBIN TOTAL 0.3 mg/dL 0.2-1.3 N "A positive bias may (test code = BILT) occur for patients taking Eltrombo pag(a bone marrow sti mulant used to treat thrombocytopeni a andaplastic ane albertina)." BILIRUBIN CONJUGATED 0 mg/dL 0-0.3 N "A posi tive bias may (test code = BILCON) occur f or patients taking Eltrombo pag(a bone marrow sti mulant used to treat thrombocytopeni a andaplastic ane albertina)." CON JUGATED BILIRUBIN IS TH E REPLACEMENT ASS AY FOR DIRECTBILIRUBIN . BILIRUBIN 0.1 mg/dL 0-1.1 N UNCONJUGATED (test code = BILUNC) SGOT/AST (test code 29 U/L 15-46 N = AST) SGPT/ALT (test code U/L 0-34 = ALT) ALKALINE PHOSPHATASE 96 U/L 38-126 N (test code = ALKP) [id number] 18:37:00 Test Item Value Reference Range Interpretation Comments LIPASE (test code = LIP) U/L 23-300 - CT ABD PELVIS W/O [id number] 18:36:00 [facility] : 1995 Sex: F FAX: Mayelin Santos [phone] [place]: St: PRE Name: NATIVIDAD GREGG [facility] : 1995 Age/S: 24/F [address] Unit: [id number] Loc: [place] [address] Phys: Mayelin Tyler CREDENTIALING SPECIALIST Acct: [id number] Dis Date: Status: PRE ER PHONE #: [phone] Exam Date: 01/13/2020 1820 FAX #: [phone] Reason: flank pain EXAMS: CPT CODE: [id number] CT ABD PELVIS W/O CONT 63102 Examination: Abdomen and pelvic CT without contrast Location code: S17 Comparison: Abdomen and pelvic CT July 22, 2012 Technique: Axial noncontrast contiguous images were obtained through the abdomen and pelvis followed by coronal and sagittal reformations. All CT scans are performed using radiation dose reduction technique. Technical factors are evaluated and adjusted to insure a ppropriate moderation of exposure. Automated dose management technology is applied to adjust the radiation dose to minimize exposure while achieving a diagnostic quality image. Discussion: Clinical history is remarkable for flank pain. Lung bases are clear. Heart is normal in size. Evaluation is limited by the lack of contrast media. Liverappears normal, gallbladder is absent. Spleen, pancreas, and adrenal glands are normal. There are two 1 mm nonobstructing left renal calculi present. Caliber of the bowel is within normal limits. The appendix is normal. Small umbilical omental fat hernia is present. Diverticulosis is noted without diverticulitis. Bladder and uterus are unremarkable, adnexa are within normal limits. There are no lytic or blastic lesions present within the osseous structures. Impression: 1. There are 2 punctate 1 mm nonobstructing left renal calculi. 2. Diverticulosis without diverticulitis. at 1836 Reported and signed by: Luis Neff MD PAGE 1 Signed Report (CONTINUED) FAX: Mayelin Santos [phone] [place]: St: PRE--------- Name: NATIVIDAD GREGG [facility] : 1995 Age/S: 24/F [address] Unit: [id number] Loc: [place] [address] Phys: Mayelin Mesa NP Acct: [id number] Dis Date: Status: PRE ER PHONE #: [phone] Exam Date: 01/13/2020 1820 FAX #: [phone] Reason: flank pain EXAMS: CPT CODE: [id number] CT ABD PELVIS W/O CONT 16164 <Continued> CC: Mayelin Tyler NP Technologist: Rosa Savage Trnscrd Dt/Tm: 01/13/2020 (1835) [id number] Orig Print D/T: S: 01/13/2020 (9 PAGE 2 Signed ReportUA RFLX MICR CULT IF INDICATED 2020-01-13 18:33:00 Test Item Value Reference Range Interpretation Comments UA COLOR (test code = COLU) YELLOW UA APPEARANCE (test code = APPU) CLEAR UA GLUCOSE DIPSTICK (test code = MG/DL NEGATIVE DGLUU) UA BILIRUBIN DIPSTICK (test code = NEGATIVE BILU) UA KETONE DIPSTICK (test code = KETU) MG/DL NEGATIVE UA SPECIFIC GRAVITY (test code = SGU) 1.000-1.030 UA BLOOD DIPSTICK (test code = CATHERINE) NEGATIVE UA PH DIPSTICK (test code = OG) 4.5-8.5 UA PROTEIN DIPSTICK (test code = PROU) MG/DL NEGATIVE UA UROBILINOGEN DIPSTICK (test code = EU/dL <=1.0 URO) UA NITRITE DIPSTICK (test code = EDVIN) NEGATIVE UA LEUKOCYTE ESTERASE DIPSTICK (test NEGATIVE code = LEUU) UA WBC (test code = WBCUR) /HPF 0-3 UA RBC (test code = RBCU) /HPF 0-3 UA BACTERIA (test code = BACU) /HPF NEGATIVE Indication for culture: Flank PainSOURCE OF URINE: CLEAN CATCHUR HCG QUAL 2020-01-13 18:33:00 Test Item Value Reference Range Interpretation Comments UR HCG QUAL (test code = HCGQLU) NEGATIVE NEGATIVE Indication for culture: Flank PainSOURCE OF URINE: CLEAN CATCHCBC W/AUTO [id number] 18:19:00 Test Item Value Reference Range Interpretation Comments WHITE BLOOD CELL (test code = 17.5 x10 3/uL 5.0-12.0 H WBC) RED BLOOD CELL (test code = 4.44 x10 6/uL 4.20-5.40 N RBC) HEMOGLOBIN (test code = HGB) 12.9 g/dL 12.0-16.0 N HEMATOCRIT (test code = HCT) 40.3 % 36.0-46.0 N MEAN CELL VOLUME (test code = 91 fL 81-99 N MCV) MEAN CELL HGB (test code = 29.1 pg 27-31 N MCH) MEAN CELL HGB CONCENTRATION 32.0 g/dL 33-37 L (test code = MCHC) RED CELL DISTRIBUTION WIDTH 13.3 % 11.5-15.5 N (test code = RDW) PLATELET COUNT (test code = 517 x10 3/uL 130-400 H PLT) MEAN PLATELET VOLUME (test 9.5 fL 9.4-16.4 N code = MPV) NEUTROPHIL % (test code = NT%) 68.9 % 43-65 H IMMATURE GRANULOCYTE % (test 0.4 % 0.0-2.0 N code = IG%) LYMPHOCYTE % (test code = LY%) 21.9 % 20.5-45.5 N MONOCYTE % (test code = MO%) 5.4 % 5.5-11.7 L EOSINOPHIL % (test code = EO%) 2.9 % 0.9-2.9 N BASOPHIL % (test code = BA%) 0.5 % 0.2-1.0 N NUCLEATED RBC % (test code = 0.0 % 0-1.0 N NRBC%) NEUTROPHIL # (test code = NT#) 12.05 x10 3/uL 2.2-4.8 H IMMATURE GRANULOCYTE # (test 0.07 x10 3/uL 0-0.03 H code = IG#) LYMPHOCYTE # (test code = LY#) 3.84 x10 3/uL 1.3-2.9 H MONOCYTE # (test code = MO#) 0.95 x10 3/uL 0.3-0.8 H EOSINOPHIL # (test code = EO#) 0.51 x10 3/uL 0.0-0.2 H BASOPHIL # (test code = BA#) 0.08 x10 3/uL 0.0-0.1 N ECG 12 [id number] 21:47:11 Test Item Value Reference Range Interpretation Comments Ventricular rate (test 106 code = 253) Atrial rate (test code = 106 255) AL interval (test code = 118 266) QRSD interval (test code 82 = 260) QT interval (test code = 350 264) QTC interval (test code 464 = 265) P axis 1 (test code = 49 267) QRS axis 1 (test code = 37 268) T wave axis (test code = 4 270) EKG impression (test Sinus code = 273) tachycardia-Otherwise normal ECG-No previous ECGs available-Electronica lly Signed By Jose Juan Ventura MD ([id number]) on 05/01/2019 9:47:05 PM [facility] [id number] 19:27:47 Test Item Value Reference Range Interpretation Comments Sodium (test code = 140 135- 148 mEq/L 2951-2) Potassium (test code = 4.0 3.5- 5.0 mEq/L 2823-3) Chloride (test code = 107 98- 112 mEq/L 5-0) CO2 (test code = 2027-9) 19 24- 31 mEq/L L Anion gap (test code = 14@ANIO 7- 15 mEq/L 06255-9) BUN (test code = 3094-0) 10 mg/dL 6-20 Creatinine (test code = 0.76 mg/dL 0.5-0.9 2160-0) Glucose (test code = 80 mg/dL 65-99 2345-7) Calcium (test code = 9.0 mg/dL 8.3-10.2 81654-2) Protein (test code = 7.4 g/dL 6.3-8.3 [facility] 9994.6-7.0 2885-2) g/dL1 xxkf3694.4-7.6 g/dL7 months-2gdih491 .1- 7.3 g/dL1-2 hzfoi048.6-7.5 g/dL>3 .0-8.0 g/vE10-1998196. 3-8 .3 g/dL Albumin (test code = 3.6 g/dL 3.5-5 1751-7) A/G ratio (test code = 0.9 0.7-3.8 1759-0) Alkaline phosphatase 70 U/L 35-104 (test code = 6768-6) AST (test code = 1920-8) 24 U/L 10-35 ALT (test code = 1742-6) 23 U/L 5-50 Total bilirubin (test <0.2 0-1.2 code = 1974-2) Lab Interpretation (test Abnormal code = 53121-2) Xenia MethodistLipase [id number] 19:27:45 Test Item Value Reference Range Interpretation Comments Lipase (test code = 3040-3) 13 U/L 13-60 Xenia MethodistEstimated [id number] 19:27:45 Test Item Value Reference Range Interpretation Comments Estimated GFR (test >=90 mL/min/1.73 m2 Ruben barnard Units code = 5488) InterpretationG 1 >=90 Normal or highG2 60-89 Mildly tzozwdldzK4i 45-59 Mildly to mode rately hsbtgmajzS5t 30-44 Moderately to severely decreasedG4 15-29 Severely decre asedG5 <15 Kidn ey failureThe eGFR was calculated wilma gary the Chronic Kidney Disease Epidemiology Co llaboration (CKD-EPI) equat ion. Interpretation is based on recommendations of the National Kidney Foundation-Kidn ey Disease Outcomes Qualit y Initiative (NKF-KDOQI) pub lished in 2014. Vu MethodistLactic acid level, SEPSIS - Now and repeat 2x every 3 hours 2019-05-01 19:25:08 Test Item Value Reference Range Interpretation Comments Lactic acid (test code = 95629-7) 1.5 mmol/L 0.5-2.2 Xenia MethodisthCG qualitative, serum [id number] 19:15:52 Test Item Value Reference Range Interpretation Comments hCG qualitative, Negative Sensitivity of HCG test: serum (test code = 25 mIU/mL 2117-8) Xenia MethodistCBC with platelet and [id number] 18:57:49 Test Item Value Reference Range Interpretation Comments WBC (test code = 84243-8) 13.27 4.50- 11.00 k/uL H RBC (test code = 06336-0) 4.26 m/uL 4.2-5.5 HGB (test code = 718-7) 13.1 g/dL 12-16 HCT (test code = 4544-3) 39.2 % 37-47 MCV (test code = 787-2) 92.0 fL 82-100 MCH (test code = 785-6) 30.8 pg 27-34 MCHC (test code = 786-4) 33.4 g/dL 31-37 RDW - SD (test code = 43.7 fL 37-55 42385-9) MPV (test code = 25580-6) 9.8 fL 8.8-13.2 Platelet count (test code 374 150- 400 k/uL = 25968-7) Nucleated RBC (test code 0.00 /100 WBC = 56014-8) Neutrophils (test code = 65.0 % 39-69 94123-2) Lymphocytes (test code = 19.4 % 25-45 L 04922-2) Monocytes (test code = 6.7 % 0-10 77438-3) Eosinophils (test code = 8.1 % 0-5 H 08467-7) Basophils (test code = 0.5 % 0-1 21577-4) Immature granulocytes 0.3 % 0-1 "Immat ure (test code = 60564-4) granul ocytes" (promyelocytes, myelocytes, metamyelocytes) Lab Interpretation (test Abnormal code = 55169-4) Horace Hwang
[2020-02-19] MEDS ORDERED: ONDANSETRON 4 MG/2 ML VIAL ONE (17:12)
[2020-02-19] MEDS ORDERED: MORPHINE 4 MG/ML SYR ONE (17:12)
[2020-02-19] MEDS ORDERED: NA CHLORIDE 0.9% 1,000 ML ONE ×2 (17:12→18:30)
[2020-02-19 17:14] LABS: Absolute Lymphocytes (CBC) 2.9 K/uL (0.7-4.9); Basophils % 0.6 % (0-1.3); Hematocrit 34.5 % (36.0-45.0); Lymphocytes % 26.5 % (15.3-44.8); MPV 8.3 fL (7.6-11.3); RBC Red Blood Cell Count 4.08 M/uL (3.86-4.86)
[2020-02-19 17:27] LABS: ALT/SGPT 23 U/L (12-78); AST/SGOT 12 U/L (15-37); Alkaline Phosphatase 97 U/L (45-117); BUN Blood Urea Nitrogen 9 mg/dL (7-18); Bicarbonate 23 mmol/L (21-32); Bilirubin Direct < 0.1 mg/dL (0-0.2); Bilirubin Total 0.2 mg/dL (0.2-1.0); Glucose Level 92 mg/dL (74-106); Lipase 85 U/L (73-393); Potassium 3.8 mmol/L (3.5-5.1); Protein, Total 8.4 g/dL (6.4-8.2); Sodium Level 144 mmol/L (136-145)
[2020-02-19] MEDS ORDERED: HYDROMORPHONE HCL 1 MG/ML INJ ONE ×2 (17:34→18:43)
[2020-02-19] MEDS ORDERED: MAGNESIUM SULFATE 1 gm IVPB 1 GM/100 ML BAG IV ONE (17:34)
[2020-02-19 18:16] LABS: Urine Blood NEGATIVE (NEG); Urine Glucose NEGATIVE (NEG); Urine Protein NEGATIVE (NEG); Urine Specific Gravity 1.025 (1.005-1.030); Urine pH 7.5 (5.0-7.0)
[2020-02-19 18:43] LABS: Urine Bacteria 20-50 /HPF (<20); Urine RBC <5 /HPF (NONE SEEN)
--- NOTE | 2020-02-19 19:10 | RAD REPORT ---
EXAM DESCRIPTION: CT - Stone Protocol - 02/19/2020 6:53 pm CLINICAL HISTORY: Flank pain. left flank pain COMPARISON: Stone Protocol dated 06/01/2016 TECHNIQUE: Axial images were obtained without oral or IV contrast. Lack of contrast limits solid org an and vascular assessment. The nyyoi-rj-ydou spans the entirety of the system partially obscuring uppermost abdomen and lung bases. Coronal reformatted images were obtained and reviewed. All CT scans are performed using dose optimization technique as appropriate and may include automated exposure control or mA/KV adjustment according to patient size. FINDINGS: The lower lung [place] are clear. Cholelithiasis. Imaged portions of the liver and spleen show no suspicious findings on non-contrast imaging. The panc reas and adrenal glands are normal. No pathologic lymphadenopathy in the abdomen or pelvis. Punctate calculi are present in the left kidney measuring about 1 mm each. No hydronephrosis. No righ t sided renal calculus or hydronephrosis seen. No bowel obstruction, free air, free fluid or abscess. Normal appendix noted. No significant bony abnormality. IMPRESSION: Punctate left nephrolithiasis without hydronephrosis.
--- NOTE | 2020-02-19 19:47 | ER ---
Nurse's Notes [facility] Name: Ana Lilia Kline Age: 24 yrs Sex: Female : 1995 Arrival Date: 02/19/2020 Time: 16:38 Bed 2 Private MD: Diagnosis: Calculus of kidney-left Presentation: 02/18 16:53 Initial Sepsis Screen: Does the patient meet any 2 criteria? RR > 20 per min. HR > 90 sv bpm. Yes Does the patient have a suspected source of infection? Yes: Other: has a known kidney stone. Onset of symptoms was February 19, 2020. 16:53 Acuity: KATY 2 sv 16:53 Chief complaint: Patient states: has a known 2-3 mm kidney stone in her left kidney sv with pyelonephritis, was driving back home to [place] and started having left flank pain and vomiting. Took Tylenol #3 about 1.5 hours ago. Pt has been taking her Bactrim and Flomax as prescribed. Coronavirus screen: Client denies travel out of the [place] in the last 14 days. At this time, the client does not indicate any symptoms associated with coronavirus-19. Ebola Screen: No symptoms or risks identified at this time. Risk Assessment: Do you want to hurt yourself or someone else? Patient reports no desire to harm self or others. 16:53 Method Of Arrival: Ambulatory sv Triage Assessment: 16:53 General: Appears uncomfortable, obese, well developed, Behavior is cooperative, sv appropriate for age, anxious, restless, pt pacing the room. Pain: Complains of pain in posterior aspect of left lateral abdomen and anterior aspect of left lateral abdomen Pain currently is 10 out of 10 on a pain scale. Quality of pain is described as sharp, Pain began 1 hour ago. Is continuous, Noted to be grimacing, moaning, restless, panting. Neuro: Level of Consciousness is awake, alert, obeys commands, Oriented to person, place, time, situation, Moves all extremities. Full function Gait is steady, Speech is normal. Respiratory: Respiratory effort is even, shallow, Respiratory pattern is tachypnea. GI: Abdomen is obese, Reports nausea, vomiting. Derm: Skin is pink, warm \T\ dry. 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 - Social history:: Smoking status: . Screenin:55 Abuse screen: Denies threats or abuse. Denies injuries from another. Nutritional sv screening: No deficits noted. Tuberculosis screening: No symptoms or risk factors identified. Fall Risk None identified. Assessment: 17:20 Reassessment: No changes from previously documented assessment. Patient and/or family sv updated on plan of care and expected duration. Pain level reassessed. Patient is alert, oriented x 3, equal unlabored respirations, skin warm/dry/pink. Informed Alexandro MAY pt is requesting pain medication. Previous medication did not help with pain. Medication order received, see MAR. 17:25 Reassessment: No changes from previously documented assessment. Patient and/or family sv updated on plan of care and expected duration. Pain level reassessed. Patient is alert, oriented x 3, equal unlabored respirations, skin warm/dry/pink. 18:11 Reassessment: No changes from previously documented assessment. Patient and/or family sv updated on plan of care and expected duration. Pain level reassessed. Patient is alert, oriented x 3, equal unlabored respirations, skin warm/dry/pink. Pt requesting pain medication. Informed Alexandro PA, no orders given at this time. Informed pt. 18:18 Reassessment: No changes from previously documented assessment. Patient and/or family sv updated on plan of care and expected duration. Pain level reassessed. Patient is alert, oriented x 3, equal unlabored respirations, skin warm/dry/pink. 18:20 Reassessment: Pt requesting to speak with the charge nurse. Informed Thelma LAFLEUR. sv 18:24 Reassessment: Thelma LAFLEUR at the bedside. sv 18:28 Reassessment: Dr Yee at the bedside speaking with the pt. sv 19:27 General: Appears uncomfortable, Behavior is restless, Pacing in room. Pain: Complains lp1 of pain in left upper quadrant, right lower quadrant and left lower quadrant Pain currently is 9 out of 10 on a pain scale. Quality of pain is described as sharp. Neuro: Level of Consciousness is awake, alert, obeys commands, Oriented to person, place, time, situation. Cardiovascular: Patient's skin is warm and dry. Respiratory: Respiratory effort is even, Respiratory pattern is hyperventilation. GI: Abdomen is obese, Bowel sounds present X 4 quads. Abdomen is tender to palpation in left lower quadrant. : Reports burning with urination, Hx of dx of pyelonephritis. Derm: Skin is pink, warm \T\ dry. Musculoskeletal: No deficits noted. 20:03 Reassessment: Patient appears more relaxed at this time; readiness for discharge. lp1 Neuro: Gait is steady. Vital Signs: 16:53 BP 137 / 119; Pulse 125; Resp 42; Temp 98.7; Pulse Ox 98% ; Weight 122.47 kg; Height 5 sv ft. 2 in. (157.48 cm); Pain 10/10; 17:26 Pulse 130; Resp 40; Pulse Ox 99% on R/A; sv 19:28 BP 138 / 80; Pulse 129; Resp 22; Pulse Ox 97% on R/A; Pain 9/10; lp1 16:53 Body Mass Index 49.38 (122.47 kg, 157.48 cm) sv ED Course: 16:38 Patient arrived in ED. ds1 16:44 Alexandro Petit PA is PHCP. cp 16:44 Indra Yee MD is Attending Physician. cp 16:46 Nicole Magaña, CIARRA is Primary Nurse. sv 16:54 Triage completed. sv 16:54 Arm band placed on. sv 16:55 Patient has correct armband on for positive identification. Bed in low position. Call light in reach. Pulse ox on. NIBP on. Door closed. Head of bed elevated. 16:55 Initial lab(s) drawn, by me, held in ED. Inserted saline lock: 20 gauge in right dh3 antecubital area, using aseptic technique. Blood collected. 18:13 IV is patent, is intact, with fluids infusing freely. sv 18:[address] via wheelchair. sv 18:53 CT Stone Protocol In Process Unspecified. EDMS 18:55 Urine Culture Sent. sv 19:01 Report given to Yoselyn RN and Sarmad RN. sv 19:04 Primary Nurse role handed off by Nicole Magaña, CIARRA sv 19:13 Yoselyn Verduzco, RN is Primary Nurse. lp1 20:02 No provider procedures requiring assistance completed. IV discontinued, No lp1 redness/swelling at site. Pressure dressing applied. Administered Medications: 17:00 Drug: NS 0.9% 1000 ml Route: IV; Rate: 1 bolus; Site: right antecubital; sv 17:00 Drug: Zofran (Ondansetron) 4 mg Route: IVP; Site: right antecubital; sv 17:26 Follow up: Response: No adverse reaction; Marked relief of symptoms; Nausea is decreasedsv 17:02 Drug: morphine 4 mg {Note: rass3.} Route: IVP; Site: right antecubital; sv 17:26 Follow up: Response: No adverse reaction; No change in condition; Pain is unchanged, sv physician notified; RASS: Very agitated (+3) 17:25 Drug: Magnesium Sulfate 1 grams Route: IVPB; Infused Over: 1 hrs; Site: right sv antecubital; 18:33 Follow up: Response: No adverse reaction; IV Status: Completed infusion; IV Intake: sv 100ml 17:26 Drug: Dilaudid 1 mg {Note: rass3.} Route: IVP; Site: right antecubital; sv 18:13 Follow up: Response: No adverse reaction; No change in condition; Pain is unchanged, sv physician notified; RASS: Very agitated (+3) 18:18 Drug: NS 0.9% 1000 ml Route: IV; Rate: 1 bolus; Site: right antecubital; sv 18:32 Drug: Dilaudid 1 mg {Note: rass3.} Route: IVP; Site: right antecubital; sv 19:01 Follow up: Response: No adverse reaction; RASS: Agitated (+2) sv 19:57 Drug: Hydrocodone-Acetaminophen (7.5 mg-325 mg) 1 tabs Route: PO; lp1 20:00 Follow up: Response: Medication administered at discharge. lp1 Intake: 18:33 IV: 100ml; Total: 100ml. sv Outcome: 19:46 Discharge ordered by . cp 20:02 Patient left the ED. mw2 20:02 Discharged to home ambulatory, with friend. lp1 20:02 Condition: good 20:02 Discharge instructions given to patient, Instructed on discharge instructions, follow up and referral plans. medication usage, Demonstrated understanding of instructions, follow-up care, medications, Prescriptions given X 1. Signatures: Dispatcher [employer] Nicole Jon RN RN sv Sanford, Demi ds1 Yoselyn Verduzco RN RN lp1 Alexandro Petit PA PA cp Herrera, Deanna 3 Chava Oconnell 2 Corrections: (The following items were deleted from the chart) 17:14 16:53 Chief complaint: Patient states: has a known 2-3 mm kidney stone in her left sv kidney with pyelonephritis, was driving back home to [place] and started having left flank pain and vomiting. Took Tylenol #3 about 1.5 hours ago. sv
--- NOTE | 2020-02-19 19:47 | EDPHYS ---
Physician Documentation [facility] Name: Ana Lilia Kline Age: 24 yrs Sex: Female : 1995 Arrival Date: 02/19/2020 Time: 16:38 Bed 2 Private MD: ED Physician Indra Yee HPI: 02/18 17:00 This 24 yrs old Female presents to ER via Ambulatory with complaints of cp Possible Kidney Stone. 17:00 The patient complains of pain in the left flank. cp 17:00 The pain radiates to the abdomen. Onset: The symptoms/episode began/occurred today. cp Associated signs and symptoms: Pertinent positives: nausea, Pertinent negatives: diarrhea, fever, pain radiating to the lower extremities, vomiting. Severity of pain: in the emergency department the pain is unchanged took tylenol #3 today. The patient has experienced similar episodes in the past, multiple times, today's symptoms are similar, to when the patient was apparently diagnosed with kidney stone. 17:00 The patient has been recently seen by a physician: out of Town, with similar presenting cp complaints, and apparently given a diagnosis of kidney stone, currently taking tylenol #3 for pain, Bactrim and flomax. 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 - Social history:: Smoking status: . ROS: 17:05 Back: Positive for flank pain, on the left. cp 17:05 Constitutional: Negative for body aches, chills, fever, poor PO intake. cp 17:05 Cardiovascular: Negative for chest pain, palpitations. 17:05 Respiratory: Negative for cough, shortness of breath, wheezing. 17:05 Abdomen/GI: Positive for nausea, Negative for vomiting, diarrhea, constipation. 17:05 : Negative for hematuria, burning with urination, difficulty urinating. 17:05 Neuro: Negative for altered mental status, headache, weakness. 17:05 All other systems are negative. Exam: 17:10 Constitutional: The patient appears in no acute distress, alert, awake, non-toxic, well cp developed, well nourished, obese, uncomfortable. 17:10 Head/Face: Normocephalic, atraumatic. cp 17:10 Eyes: Periorbital structures: appear normal, Conjunctiva: normal, no exudate, no cp injection, Sclera: no appreciated abnormality, Lids and lashes: appear normal, bilaterally. 17:10 ENT: External ear(s): are unremarkable, Nose: is normal, Mouth: Lips: moist, Oral cp mucosa: moist, Posterior pharynx: Airway: no evidence of obstruction, patent. 17:10 Chest/axilla: Inspection: normal, Palpation: is normal, no crepitus, no tenderness. 17:10 Cardiovascular: Rate: tachycardic, Rhythm: regular. 17:10 Respiratory: the patient does not display signs of respiratory distress, Respirations: normal, no use of accessory muscles, no retractions, labored breathing, is not present, Breath sounds: are clear throughout, no decreased breath sounds. 17:10 Abdomen/GI: Inspection: obese Bowel sounds: active, all quadrants, Palpation: soft, in all quadrants, moderate abdominal tenderness, in the posterior aspect of left lateral abdomen, anterior aspect of left lateral abdomen and left lower quadrant, rebound tenderness, is not appreciated, involuntary guarding, is not appreciated. 17:10 Back: CVA tenderness, that is severe, is noted on the left. 17:10 Skin: no rash present. Vital Signs: 16:53 BP 137 / 119; Pulse 125; Resp 42; Temp 98.7; Pulse Ox 98% ; Weight 122.47 kg; Height 5 sv ft. 2 in. (157.48 cm); Pain 10/10; 17:26 Pulse 130; Resp 40; Pulse Ox 99% on R/A; sv 19:28 BP 138 / 80; Pulse 129; Resp 22; Pulse Ox 97% on R/A; Pain 9/10; lp1 16:53 Body Mass Index 49.38 (122.47 kg, 157.48 cm) sv MDM: 16:52 Patient medically screened. cp 18:00 Differential diagnosis: nephrolithiasis, pyelonephritis, UTI, sepsis. cp 19:45 Data reviewed: vital signs, nurses notes, lab test result(s), radiologic studies, CT cp scan, and as a result, I will discharge patient. 19:45 Counseling: I had a detailed discussion with the patient and/or guardian regarding: the cp historical points, exam findings, and any diagnostic results supporting the discharge/admit diagnosis, lab results, radiology results, to return to the emergency department if symptoms worsen or persist or if there are any questions or concerns that arise at home. Response to treatment: the patient's symptoms have mildly improved after treatment, and as a result, I will discharge patient. 02/18 16:56 Order name: Basic Metabolic Panel; Complete Time: 18:10 cp 02/18 18:10 Interpretation: Normal except: CL 111; GFR 89. cp 02/18 16:56 Order name: CBC with Diff; Complete Time: 17:20 cp 02/18 17:20 Interpretation: Normal except: HGB 11.9; HCT 34.5; MCV 84.6; PLT 476. cp 02/18 16:56 Order name: Hepatic Function; Complete Time: 18:10 cp 02/18 16:56 Order name: Lipase; Complete Time: 18:10 cp 02/18 16:56 Order name: Urine Microscopic Only; Complete Time: 19:34 cp 02/18 18:12 Order name: Urine Dipstick--Ancillary (enter results); Complete Time: 18:18 eb 02/18 17:20 Order name: CT Stone Protocol 02/18 18:12 Order name: Urine --Ancillary (enter results); Complete Time: 18:18 eb 02/18 18:44 Order name: Urine Culture [facility] 02/18 16:56 Order name: IV Saline Lock; Complete Time: 16:57 cp 02/18 16:56 Order name: Labs collected and sent; Complete Time: 16:57 cp 02/18 16:56 Order name: Urine Dipstick-Ancillary (obtain specimen); Complete Time: 18:34 cp 02/18 16:56 Order name: Urine Test (obtain specimen); Complete Time: 18:33 cp 02/18 18:23 Order name: Misc. Order: place in IV fluids; Complete Time: 18:32 cp Administered Medications: 17:00 Drug: NS 0.9% 1000 ml Route: IV; Rate: 1 bolus; Site: right antecubital; sv 17:00 Drug: Zofran (Ondansetron) 4 mg Route: IVP; Site: right antecubital; sv 17:26 Follow up: Response: No adverse reaction; Marked relief of symptoms; Nausea is decreasedsv 17:02 Drug: morphine 4 mg {Note: rass3.} Route: IVP; Site: right antecubital; sv 17:26 Follow up: Response: No adverse reaction; No change in condition; Pain is unchanged, sv physician notified; RASS: Very agitated (+3) 17:25 Drug: Magnesium Sulfate 1 grams Route: IVPB; Infused Over: 1 hrs; Site: right sv antecubital; 18:33 Follow up: Response: No adverse reaction; IV Status: Completed infusion; IV Intake: sv 100ml 17:26 Drug: Dilaudid 1 mg {Note: rass3.} Route: IVP; Site: right antecubital; sv 18:13 Follow up: Response: No adverse reaction; No change in condition; Pain is unchanged, sv physician notified; RASS: Very agitated (+3) 18:18 Drug: NS 0.9% 1000 ml Route: IV; Rate: 1 bolus; Site: right antecubital; sv 18:32 Drug: Dilaudid 1 mg {Note: rass3.} Route: IVP; Site: right antecubital; sv 19:01 Follow up: Response: No adverse reaction; RASS: Agitated (+2) sv 19:57 Drug: Hydrocodone-Acetaminophen (7.5 mg-325 mg) 1 tabs Route: PO; lp1 20:00 Follow up: Response: Medication administered at discharge. lp1 Disposition: 20:05 Chart complete. cp 02/19 09:33 Co-signature as Attending Physician, Indra Yee MD. rn Disposition: 02/19/20 19:46 Discharged to Home. Impression: Calculus of kidney - left. - Condition is Stable. - Discharge Instructions: Kidney Stones, Renal Colic. - Prescriptions for promethazine 25 mg Oral Tablet - take 1 tablet by ORAL route every 6 hours As needed; 20 tablet. - Medication Reconciliation Form, Thank You Letter, Antibiotic Education, Prescription Opioid Use form. - Follow up: Private Physician; When: 1 - 2 days; Reason: Recheck today's complaints. - Problem is new. - Symptoms have improved. Signatures: Dispatcher [employer] Nicole Jon, RN RN Indra Lewis MD MD rn Pena, Laura, RN RN lp1 Alexandro Petit PA PA cp Chava Oconnell mw2 Corrections: (The following items were deleted from the chart) 02/18 17:27 16:57 Stone Protocol+CT.RAD.BRZ ordered. EDMS EDMS 19:36 17:16 Rp Exam Limited+US.RAD.BRZ ordered. EDMS EDMS 20:02 19:46 02/19/2020 19:46 Discharged to Home. Impression: Calculus of kidney - left. mw2 Condition is Stable. Forms are Medication Reconciliation Form, Thank You Letter, Antibiotic Education, Prescription Opioid Use. Follow up: Private Physician; When: 1 - 2 days; Reason: Recheck today's complaints. Problem is new. Symptoms have improved. cp
[2020-02-19] MEDS ORDERED: HYDROCODONE/APAP 7.5/325 MG TAB ONE (20:12)
[2020-02-23 13:32] VITALS: TEMP 98.7
[2020-02-23 13:34] VITALS: BP 138/80; O2SAT 97
== END 2020-02-19 20:02 | disposition home or self-care (01) ==
LOC: ER 16:37
DX: N20.0 Calculus of kidney (principal); Z88.1 Allergy status to other antibiotic agents; Z88.5 Allergy status to narcotic agent; Z88.8 Allergy status to other drugs, medicaments and biological substances
CPT/HCPCS: 87088; 85025; 87086; 80048; 36415; 81025; 80076; 83690; 76377; 74176; J3475; J1170 ×2; J7030 ×2; J2405; 81003; 81015; 96365; 96375; 99284

== ENCOUNTER 2020-04-29 11:08 | Emergency (ER) | payer OTHER ==
[2020-04-29] MEDS ORDERED: NA CHLORIDE 0.9% 1,000 ML ONE (11:47)
[2020-04-29] MEDS ORDERED: ONDANSETRON 4 MG/2 ML VIAL ONE (11:47)
[2020-04-29] MEDS ORDERED: MORPHINE 4 MG/ML SYR ONE (11:47)
[2020-04-29 12:00] LABS: Absolute Lymphocytes (CBC) 2.7 K/uL (0.7-4.9); Basophils % 0.5 % (0-1.3); Hematocrit 34.5 % (36.0-45.0); Lymphocytes % 23.5 % (15.3-44.8); MPV 8.4 fL (7.6-11.3); RBC Red Blood Cell Count 4.12 M/uL (3.86-4.86)
[2020-04-29 12:15] LABS: Urine Blood TRACE (NEG); Urine Glucose NEGATIVE (NEG); Urine Protein TRACE (NEG); Urine Specific Gravity >1.030 (1.005-1.030); Urine pH 6.5 (5.0-7.0)
[2020-04-29 12:16] LABS: ALT/SGPT 19 U/L (12-78); AST/SGOT 13 U/L (15-37); Albumin 3.9 g/dL (3.4-5.0); Alkaline Phosphatase 91 U/L (45-117); BUN Blood Urea Nitrogen 13 mg/dL (7-18); Bicarbonate 22 mmol/L (21-32); Bilirubin Direct < 0.1 mg/dL (0-0.2); Bilirubin Total 0.2 mg/dL (0.2-1.0); Glucose Level 95 mg/dL (74-106); Lipase 114 U/L (73-393); Potassium 4.2 mmol/L (3.5-5.1); Sodium Level 141 mmol/L (136-145)
[2020-04-29] MEDS ORDERED: FENTANYL CITR 100 MCG/2 ML ONE (12:29)
--- NOTE | 2020-04-29 13:54 | ER ---
Nurse's Notes [facility] Name: Ana Lilia Kline Age: 24 yrs Sex: Female : 1995 Arrival Date: 04/29/2020 Time: 11:09 Bed 18 Private MD: Diagnosis: Left Flank Pain Presentation: 04/29 11:19 Chief complaint: Patient states: L flank pain for 5 days. States she was diagnosed with ll1 a kidney stone and UTI 5 days ago. N/V after meals, but can hold down fluids. No fever. Coronavirus screen: Client denies travel out of the [place] in the last 14 days. At this time, the client does not indicate any symptoms associated with coronavirus-19. Ebola Screen: Patient denies travel to an Ebola-affected area in the 21 days before illness onset. Initial Sepsis Screen: Does the patient meet any 2 criteria? HR > 90 bpm. No. Patient's initial sepsis screen is negative. Does the patient have a suspected source of infection? Yes: Acute abdominal pain Other: r/o kidney stone. Risk Assessment: Do you want to hurt yourself or someone else? Patient reports no desire to harm self or others. Onset of symptoms was April 24, 2020. 11:19 Method Of Arrival: Ambulatory 1 11:19 Acuity: KATY 3 ll1 Triage Assessment: 11:21 General: Appears uncomfortable, Behavior is cooperative, appropriate for age, restless. ll1 Pain: Complains of pain in L flank Pain currently is 9 out of 10 on a pain scale. Quality of pain is described as aching, Is continuous. Neuro: No deficits noted. Cardiovascular: No deficits noted. Respiratory: No deficits noted. GI: Abdomen is round Bowel sounds present X 4 quads. Abd is soft and non tender X 4 quads. Reports intolerance of food, nausea, vomiting, L flank pain. : Denies blood in urine. 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 Historical: - Allergies: 11:16 Doxycycline; ll1 11:16 Zithromax; ll1 11:16 Toradol; ll1 11:16 Reglan; ll1 11:16 Haldol; ll1 - PMHx: 11:16 Asthma; Endometrosis; polycystic ovarian disease; sudotumor ceribri; ll1 - PSHx: 11:16 endometriosis surgery; Cholecystectomy; ll1 - Immunization history:: Adult Immunizations up to date. - Social history:: Smoking status: unknown. Screenin:04 Abuse screen: Denies threats or abuse. Nutritional screening: No deficits noted. ae4 Tuberculosis screening: No symptoms or risk factors identified. Fall Risk None identified. No fall in past 12 months (0 pts). Assessment: 11:30 General: Appears distressed, uncomfortable, obese, Behavior is cooperative, anxious, ae4 restless. Pain: Complains of pain in left low back and left mid back Pain radiates to posterior aspect of left lateral abdomen, anterior aspect of left lateral abdomen, left upper quadrant and left lower quadrant. Neuro: Level of Consciousness is awake, alert, obeys commands, Oriented to person, place, time, situation, Appropriate for age. Cardiovascular: Patient's skin is warm and dry. Respiratory: Airway is patent Respiratory effort is even, unlabored, Respiratory pattern is regular, symmetrical. GI: Abdomen is round obese. GI: Reports lower abdominal pain, Patient currently denies diarrhea, nausea, vomiting. GI: Bowel sounds present X 4 quads. : No signs and/or symptoms were reported regarding the genitourinary system. Denies burning with urination, urinary frequency. EENT: No signs and/or symptoms were reported regarding the EENT system. Derm: Skin is Skin is pink, warm \T\ dry. Musculoskeletal: No signs and/or symptoms reported regarding the musculoskeletal system. 12:00 Reassessment: Patient and/or family updated on plan of care and expected duration. Pain ae4 level reassessed. States pain is decreased. Patient states feeling better. 12:15 Reassessment: Patient is pacing in exam room, states pain has increased. Provider ae4 notified, new orders received. 13:00 Reassessment: Patient appears in no apparent distress at this time. Patient and/or ae4 family updated on plan of care and expected duration. Pain level reassessed. Patient states feeling better. 13:20 Reassessment: Patient states pain has increased again. Provider notified, new orders ae4 received. 14:00 Reassessment: Patient appears in no apparent distress at this time. Patient and/or ae4 family updated on plan of care and expected duration. Pain level reassessed. Patient states feeling better. Patient states symptoms have improved. Vital Signs: 11:19 BP 160 / 125; Pulse 129; Resp 18; Temp 98.2; Pulse Ox 99% ; Pain 9/10; ll1 13:48 BP 115 / 71; Pulse 74; Resp 19; Pulse Ox 99% on R/A; ae4 ED Course: 11:09 Patient arrived in ED. ds1 11:11 Charles Martinez PA is PHCP. jmm 11:12 Palmer Paniagua MD is Attending Physician. jmm 11:16 Arm band placed on Patient placed in an exam room, on a stretcher. ll1 11:21 Triage completed. ll1 11:22 Patient has correct armband on for positive identification. Bed in low position. Call ll1 light in reach. Side rails up X 1. 11:28 Missed attempt(s): 22 gauge in right antecubital area. Bleeding controlled, band aid ll1 applied, catheter tip intact. 11:32 Mal Falcon RN is Primary Nurse. ae4 11:40 Inserted saline lock: 22 gauge in left antecubital area, using aseptic technique. Blood ae4 collected. 13:53 Constantino Moraes MD is Referral Physician. [facility] 13:55 IV discontinued, intact, bleeding controlled, No redness/swelling at site. Pressure ae4 dressing applied. 14:09 No provider procedures requiring assistance completed. ae4 Administered Medications: 11:41 Drug: NS 0.9% 1000 ml Route: IV; Rate: 1 bolus; Site: left antecubital; ae4 14:00 Follow up: IV Intake: 900ml ae4 14:08 Follow up: IV Status: Completed infusion; 900 mls total infused. ae4 11:41 Drug: Zofran (Ondansetron) 4 mg Route: IVP; Site: left antecubital; ae4 12:25 Follow up: Response: No adverse reaction; No nausea with morphine administration ae4 14:01 Follow up: Response: No adverse reaction; No adverse reaction, no nausea reported with ae4 pain medication administration. 11:44 Drug: morphine 4 mg Route: IVP; Site: left antecubital; ae4 12:25 Follow up: Response: No adverse reaction; Pain is unchanged, physician notified; RASS: ae4 Restless (+1) 12:19 Drug: fentaNYL (PF) 50 mcg Route: IVP; Site: left antecubital; ae4 14:00 Follow up: Response: Pain is decreased; RASS: Restless (+1); Pain decreased and patient ae4 states pain has returned. 13:40 Drug: Dilaudid 0.5 mg Route: IVP; Site: left antecubital; ae4 13:59 Follow up: Response: Pain is decreased; RASS: Alert and Calm (0) ae4 Intake: 14:00 IV: 900ml; Total: 900ml. ae4 Outcome: 13:53 Discharge ordered by MD. lyles 14:05 Discharged to home ambulatory, Patient ambulated with steady gait and states her ride ae4 home is awaiting her in the parking lot. 14:05 Condition: improved 14:05 Discharge instructions given to patient, Instructed on discharge instructions, follow up and referral plans. Demonstrated understanding of instructions, follow-up care, medications, Prescriptions given X 2. 14:08 Patient left the ED. ae4 Signatures: Charles Martinez PA PA jmm Sanford, Demi ds1 Mal Falcon RN RN ae4 Carmencita Forman RN RN ll1
--- NOTE | 2020-04-29 13:54 | EDPHYS ---
Physician Documentation [facility] Name: Ana Lilia Kline Age: 24 yrs Sex: Female : 1995 Arrival Date: 04/29/2020 Time: 11:09 Bed 18 Private MD: ED Physician Palmer Paniagua HPI: 04/29 11:25 This 24 yrs old Female presents to ER via Ambulatory with complaints of jmm Possible Kidney Stone. 11:25 The patient presents with abdominal pain. Onset: The symptoms/episode began/occurred jmm acutely, 5 day(s) ago. The symptoms radiate to. Associated signs and symptoms: Pertinent negatives: diarrhea. Modifying factors: The patient symptoms are alleviated by nothing, the patient symptoms are aggravated by nothing. This is a 24 year old female with a history of asthma, endometriosis, PCOS, psuedotumor cerebrii that presents to the ED with complaints of ongoing left flank pain. Initially diagnosed around 5 days ago. Patient states pain has intermittently resolved but return with intensity today. States the stone was approx 2 to 3 mm. Patient is taking flomax. . 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 Historical: - Allergies: 11:16 Doxycycline; ll1 11:16 Zithromax; ll1 11:16 Toradol; ll1 11:16 Reglan; ll1 11:16 Haldol; ll1 - PMHx: 11:16 Asthma; Endometrosis; polycystic ovarian disease; sudotumor ceribri; ll1 - PSHx: 11:16 endometriosis surgery; Cholecystectomy; ll1 - Immunization history:: Adult Immunizations up to date. - Social history:: Smoking status: unknown. ROS: 11:25 Constitutional: Negative for fever, chills, and weight loss, Cardiovascular: Negative jmm for chest pain, palpitations, and edema, Respiratory: Negative for shortness of breath, cough, wheezing, and pleuritic chest pain. 11:25 Abdomen/GI: Positive for abdominal pain. 11:25 All other systems are negative. Exam: 11:25 Head/Face: atraumatic. Eyes: EOMI, no conjunctival erythema appreciated ENT: Moist jmm Mucus Membranes Neck: Trachea midline, Supple Chest/axilla: Normal chest wall appearance and motion. Cardiovascular: Regular rate and rhythm. No edema appreciated Respiratory: Normal respirations, no respiratory distress appreciated Abdomen/GI: Non distended, soft Back: Normal ROM Skin: General appearance color normal MS/ Extremity: Moves all extremities, no obvious deformities appreciated, no edema noted to the lower extremities Neuro: Awake and alert, normal gait Psych: Behavior is normal, Mood is normal, Patient is cooperative and pleasant 11:25 Constitutional: The patient appears alert, awake, anxious, uncomfortable. Vital Signs: 11:19 BP 160 / 125; Pulse 129; Resp 18; Temp 98.2; Pulse Ox 99% ; Pain 9/10; ll1 13:48 BP 115 / 71; Pulse 74; Resp 19; Pulse Ox 99% on R/A; ae4 MDM: 11:26 Patient medically screened. rafal 13:52 Data reviewed: vital signs, nurses notes. Counseling: I had a detailed discussion with rafal the patient and/or guardian regarding: the historical points, exam findings, and any diagnostic results supporting the discharge/admit diagnosis, lab results, radiology results, the need for outpatient follow up, to return to the emergency department if symptoms worsen or persist or if there are any questions or concerns that arise at home. ED course: Patient's pain is relieved in the ED. Labs unremarkable. Will follow up with pcp or urology. Patient is otherwise given strict return precautions. Patient understood and agrees with the plan of care. . 04/29 11:25 Order name: Basic Metabolic Panel [facility] 04/29 11:25 Order name: CBC with Diff [facility] 04/29 11:25 Order name: Hepatic Function [facility] 04/29 11:25 Order name: Lipase [facility] 04/29 12:08 Order name: Urine Dipstick--Ancillary (enter results) [facility] 04/29 12:08 Order name: Urine --Ancillary (enter results) [facility] 04/29 12:15 Order name: CBC with Automated Diff; Complete Time: 12:19 [facility] 04/29 12:15 Order name: Urine --Ancillary; Complete Time: 12:19 [facility] 04/29 12:15 Order name: Urine Dipstick-Ancillary; Complete Time: 12:19 [facility] 04/29 12:16 Order name: Basic Metabolic Panel; Complete Time: 12:19 [facility] 04/29 12:16 Order name: Liver (Hepatic) Function; Complete Time: 12:19 [facility] 04/29 12:16 Order name: Lipase; Complete Time: 12:19 [facility] 04/29 11:25 Order name: IV Saline Lock; Complete Time: 12:[address] [facility] 04/29 11:25 Order name: Labs collected and sent; Complete Time: 12:[address] [facility] 04/29 11:25 Order name: Urine Dipstick-Ancillary (obtain specimen); Complete Time: 12:[address] [facility] 04/29 11:25 Order name: Urine Test (obtain specimen); Complete Time: 12:[address] [facility] Administered Medications: 11:41 Drug: NS 0.9% 1000 ml Route: IV; Rate: 1 bolus; Site: left antecubital; ae4 14:00 Follow up: IV Intake: 900ml ae4 14:08 Follow up: IV Status: Completed infusion; 900 mls total infused. ae4 11:41 Drug: Zofran (Ondansetron) 4 mg Route: IVP; Site: left antecubital; ae4 12:25 Follow up: Response: No adverse reaction; No nausea with morphine administration ae4 14:01 Follow up: Response: No adverse reaction; No adverse reaction, no nausea reported with ae4 pain medication administration. 11:44 Drug: morphine 4 mg Route: IVP; Site: left antecubital; ae4 12:25 Follow up: Response: No adverse reaction; Pain is unchanged, physician notified; RASS: ae4 Restless (+1) 12:19 Drug: fentaNYL (PF) 50 mcg Route: IVP; Site: left antecubital; ae4 14:00 Follow up: Response: Pain is decreased; RASS: Restless (+1); Pain decreased and patient ae4 states pain has returned. 13:40 Drug: Dilaudid 0.5 mg Route: IVP; Site: left antecubital; ae4 13:59 Follow up: Response: Pain is decreased; RASS: Alert and Calm (0) ae4 Disposition: 04/29/20 13:53 Discharged to Home. Impression: Left Flank Pain. - Condition is Stable. - Discharge Instructions: Kidney Stones, Dietary Guidelines to Help Prevent Kidney Stones. - Prescriptions for Zofran ODT 4 mg Oral tablet,disintegrating - place 1 tablet by TRANSLINGUAL route every 4-6 hours; 20 tablet. Tylenol- Codeine #3 300-30 mg Oral Tablet - take 1 tablet by ORAL route every 6 hours As needed; 20 tablet. - Medication Reconciliation Form, Thank You Letter, Antibiotic Education, Prescription Opioid Use form. - Follow up: Constantino Moraes MD; When: 2 - 3 days; Reason: Recheck today's complaints, Continuance of care, Re-evaluation by your physician. Addendum: 05/04/2020 19:19 Co-signature as Attending Physician, Palmer Paniagua MD I agree with the assessment and t w4 plan of care. Signatures: Dispatcher [employer] EDMS Charles Martinez PA PA jmm Wadley, Terrence, MD MD tw4 Mal Falcon RN RN ae4 Carmencita Forman RN RN ll1 Corrections: (The following items were deleted from the chart) 04/29 14:08 13:53 04/29/2020 13:53 Discharged to Home. Impression: Left Flank Pain. Condition is ae4 Stable. Forms are Medication Reconciliation Form, Thank You Letter, Antibiotic Education, Prescription Opioid Use. Follow up: Constantino Moraes; When: 2 - 3 days; Reason: Recheck today's complaints, Continuance of care, Re-evaluation by your physician. rafal
[2020-04-29] MEDS ORDERED: HYDROMORPHONE HCL 0.5 MG/0.5 ML INJ ONE (13:55)
[2020-04-29 14:33] VITALS: TEMP 98.2; O2SAT 99
[2020-04-29 14:34] VITALS: BP 115/71
== END 2020-04-29 14:08 | disposition home or self-care (01) ==
LOC: ER 11:08
DX: R10.9 Unspecified abdominal pain (principal); Z88.1 Allergy status to other antibiotic agents; Z88.5 Allergy status to narcotic agent
CPT/HCPCS: 96361; 85025; 80048; 36415; 81025; 80076; 81003; 83690; 96375; 96374; 99284; J3010; J1170; J7030; J2405

== ENCOUNTER 2020-05-02 04:51 | Emergency (ER) | payer OTHER ==
[2020-05-02 06:46] LABS: Urine Blood NEGATIVE (NEG); Urine Glucose NEGATIVE (NEG); Urine Protein NEGATIVE (NEG); Urine Specific Gravity 1.025 (1.005-1.030)
[2020-05-02 06:48] LABS: Urine Bacteria >50 /HPF (<20); Urine RBC <5 /HPF (NONE SEEN)
[2020-05-02] MEDS ORDERED: MORPHINE 4 MG/ML SYR ONE ×2 (07:05→10:16)
[2020-05-02] MEDS ORDERED: ONDANSETRON 4 MG/2 ML VIAL ONE ×2 (07:06→08:24)
[2020-05-02] MEDS ORDERED: MAGNESIUM SULFATE 1 gm IVPB 1 GM/100 ML BAG IV ONE (07:06)
[2020-05-02] MEDS ORDERED: NA CHLORIDE 0.9% 1,000 ML ONE ×2 (07:06→11:12)
[2020-05-02] MEDS ORDERED: TAMSULOSIN 0.4 MG SR CAP ONE (07:06)
[2020-05-02 07:31] LABS: Absolute Lymphocytes (CBC) 2.9 K/uL (0.7-4.9); Basophils % 0.5 % (0-1.3); Lymphocytes % 25.1 % (15.3-44.8); MPV 8.3 fL (7.6-11.3); RBC Red Blood Cell Count 3.86 M/uL (3.86-4.86)
[2020-05-02 07:41] LABS: BUN Blood Urea Nitrogen 11 mg/dL (7-18); Bicarbonate 24 mmol/L (21-32); Glucose Level 81 mg/dL (74-106); Potassium 3.8 mmol/L (3.5-5.1); Sodium Level 143 mmol/L (136-145)
[2020-05-02] MEDS ORDERED: HYDROMORPHONE HCL 2 MG/ML inj ONE (08:23)
[2020-05-02] MEDS ORDERED: CEFTRIAXONE/SWI 1gm 1 GM/10 ML SYR ONE (08:24)
--- NOTE | 2020-05-02 10:05 | RAD REPORT ---
EXAM DESCRIPTION: US - Renal Ultrasound-Complete - 05/02/2020 9:43 am CLINICAL HISTORY: None COMPARISON: CT abdomen February 2020 FINDINGS: The right kidney measures 10 cm with a normal echotexture. The left kidney measures 10 cm with a normal echotexture. Punctate nonobstructing calculus. Hydronephrosis is not seen. Limited evaluation of the bladder as is decompressed IMPRESSION: Punctate nonobstructing left renal calculus
[2020-05-02] MEDS ORDERED: HYDROCODONE/APAP 5/325 MG TAB ONE (11:12)
--- NOTE | 2020-05-02 11:30 | ER ---
Nurse's Notes [facility] Name: Ana Lilia Kline Age: 24 yrs Sex: Female : 1995 Arrival Date: 05/02/2020 Time: 04:52 Bed 25 Private MD: Diagnosis: Cystitis, unspecified without hematuria;Calculus of kidney and ureter-left Presentation: 05/02 05:30 Chief complaint: Patient states: Reports she was diagnosed with kidney stones four days ea ago, reports 4 mm stone in left ureter. Reports pain to left flank that moves to left lower abdomen. Coronavirus screen: At this time, the client does not indicate any symptoms associated with coronavirus-19. Ebola Screen: No symptoms or risks identified at this time. Initial Sepsis Screen: Does the patient meet any 2 criteria? HR > 90 bpm. Does the patient have a suspected source of infection? Yes: Dysuria/Frequency/Urgency/UTI. Risk Assessment: Do you want to hurt yourself or someone else? Patient reports no desire to harm self or others. Onset of symptoms was May 02, 2020. 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 - Social history:: Smoking status: Patient reports the use of cigarette tobacco products, smokes one-half pack cigarettes per day. - Family history:: not pertinent. - Hospitalizations: : No recent hospitalization is reported. Screenin:25 Abuse screen: Denies threats or abuse. Nutritional screening: No deficits noted. ea Tuberculosis screening: No symptoms or risk factors identified. Fall Risk None identified. Assessment: 06:15 General: Appears uncomfortable, well groomed, well developed, well nourished, Behavior sg is cooperative, appropriate for age. Pain: Complains of pain in left mid back and right mid back Quality of pain is described as sharp, stabbing. Neuro: Level of Consciousness is awake, alert, obeys commands, Oriented to person, place, time, Speech is normal. Cardiovascular: Capillary refill is brisk in bilateral fingers Patient's skin is warm and dry. Chest pain is denied. Respiratory: Airway is patent Respiratory effort is even, unlabored, Respiratory pattern is regular, symmetrical. GI: Abdomen is round non-distended, Abd is soft and non tender X 4 quads. Derm: Skin is pink, warm \T\ dry. Musculoskeletal: Circulation, motion, and sensation intact. Range of motion: intact in all extremities. 06:24 Reassessment: Patient states symptoms have not improved. sg 07:30 General: Appears distressed, uncomfortable, Behavior is cooperative, restless. ss Respiratory: Airway is patent Respiratory effort is even, unlabored, Respiratory pattern is regular, symmetrical. EENT: Oral mucosa is moist. 09:14 Reassessment: Pt refusing to have ct scan performed. General: Appears distressed, ec1 uncomfortable. Pain: Complains of pain in back and left mid back Pain currently is 7 out of 10 on a pain scale. 11:20 Reassessment: Unable to bolus fluids due to IV malfunctioning. Dr. Hunter notified. ec1 Advised I will give her PO fluids. Also notifed MD that pt wanting to go home in 30 minutes. Vital Signs: 05:30 BP 138 / 66; Pulse 140; Resp 20; Temp 97.6; Pulse Ox 100% ; Weight 63.5 kg; Height 5 ea ft. 3 in. (160.02 cm); 07:30 Pulse 139; Resp 20; Pulse Ox 98% on R/A; ss 09:12 BP 144 / 128; Pulse 126; Resp 18 S; Pulse Ox 97% on R/A; Pain 7/10; ec1 10:01 BP 109 / 81; Pulse 123; Resp 16 S; Pulse Ox 98% on R/A; ec1 05:30 Body Mass Index 24.80 (63.50 kg, 160.02 cm) ea ED Course: 04:52 Patient arrived in ED. do 05:26 Patient has correct armband on for positive identification. Bed in low position. Call ea light in reach. 05:32 Triage completed. ea 06:24 Urine collected: clean catch specimen, clear. sg 06:47 Indra Yee MD is Attending Physician. rn 06:50 Missed attempt(s): 22 gauge in right antecubital area. Bleeding controlled, band aid sg applied, catheter tip intact. 07:00 Missed attempt(s): 20 gauge in left antecubital area. 22 gauge in left antecubital sg area. Bleeding controlled, band aid applied, catheter tip intact. 07:18 Inserted saline lock: 22 gauge in left antecubital area, using aseptic technique. Blood ss collected. 07:24 Thelma Castro, CIARRA is Primary Nurse. ss 07:30 Arm band placed on right wrist. ss 07:59 Attending Physician role handed off by Idnra Yee MD ma2 07:59 Bety Hunter MD is Attending Physician. ma2 09:43 Renal Ultrasound-Complete In Process Unspecified. EDMS 11:38 IV discontinued, intact, bleeding controlled. ec1 11:45 No provider procedures requiring assistance completed. ec1 Administered Medications: 07:15 Drug: Flomax 0.4 mg Route: PO; ss 08:05 Follow up: Response: No adverse reaction; No change in condition ss 07:21 Drug: Zofran (Ondansetron) 4 mg Route: IVP; Site: left antecubital; ss 08:05 Follow up: Response: No adverse reaction ss 11:49 Follow up: Response: No adverse reaction ec1 07:23 Drug: morphine 4 mg Route: IVP; Site: left antecubital; ss 08:05 Follow up: Response: No adverse reaction; Pain is unchanged, physician notified ss 11:48 Follow up: Response: No adverse reaction ec1 07:25 Drug: NS 0.9% 1000 ml Route: IV; Rate: 1000 ml; Site: left antecubital; ss 09:00 Follow up: IV Status: Completed infusion; IV Intake: 1000ml ec1 07:27 Drug: Magnesium Sulfate 1 grams Route: IVPB; Infused Over: 1 hrs; Site: left ss antecubital; 09:00 Follow up: IV Status: Completed infusion ec1 08:05 Drug: Dilaudid 2 mg Route: IVP; Site: left antecubital; ss 09:01 Follow up: Response: Pain is decreased ec1 08:12 Drug: Zofran (Ondansetron) 4 mg Route: IVP; Site: left antecubital; ss 09:01 Follow up: Response: No adverse reaction ec1 08:20 Drug: Rocephin 1 grams Route: IV; Rate: calculated rate; Site: left antecubital; ss 09:00 Follow up: IV Status: Completed infusion ec1 10:05 Drug: morphine 4 mg Route: IVP; Site: left antecubital; ec1 10:56 Follow up: Response: Pain is unchanged, physician notified ec1 11:06 Drug: [place] 5 mg-325 mg 1 tabs Route: PO; ec1 11:47 Follow up: Response: No adverse reaction ec1 Intake: 09:00 IV: 1000ml; Total: 1000ml. ec1 Outcome: 11:29 Discharge ordered by . ma2 11:45 Discharged to home ambulatory, with family, walked out with PCT. ec1 11:45 Condition: good 11:45 Discharge instructions given to patient, Instructed on discharge instructions, follow up and referral plans. Demonstrated understanding of instructions, follow-up care, medications, Prescriptions given X 11:46 Prescriptions given X 4, phenergan, cefdinir, difleniac, flomax, bactrim, tramadol. ec1 11:49 Patient left the ED. ec1 Signatures: Dispatcher [employer] EDMS Dakota Celestin RN RN sg Nieto, Roman, MD MD rn Smirch, Shelby, RN RN ss Ogletree, Danielle do Antunez, Elena, RN RN ea Alzahri, Mohammad, MD MD ma2 Cruz, Emily, RN RN ec1
--- NOTE | 2020-05-02 11:31 | EDPHYS ---
Physician Documentation [facility] Name: Ana Lilia Kline Age: 24 yrs Sex: Female : 1995 Arrival Date: 05/02/2020 Time: 04:52 Bed 25 Private MD: ED Physician Bety Hunter HPI: 05/02 06:47 This 24 yrs old Female presents to ER via Ambulatory with complaints of rn Possible Kidney Stone, Possible UTI. 06:47 The patient complains of pain in the left mid back. The pain radiates to the pelvis. rn Onset: The symptoms/episode began/occurred 1 week(s) ago. Modifying factors: The symptoms are alleviated by nothing. the symptoms are aggravated by nothing. Severity of pain: At its worst the pain was moderate in the emergency department the pain is unchanged. 06:50 Reports diagnosed with 2-3 mm stone on left side several days ago, felt better, then rn came in for pain control, felt better again, now pain returned last night, worse than before. Pt called her urologist who is in [place], and was told to come to ER. Does not want CT scan. . 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 - Social history:: Smoking status: Patient reports the use of cigarette tobacco products, smokes one-half pack cigarettes per day. - Family history:: not pertinent. - Hospitalizations: : No recent hospitalization is reported. ROS: 06:50 Constitutional: Negative for fever, chills, and weight loss, Eyes: Negative for injury, rn pain, redness, and discharge, Cardiovascular: Negative for chest pain, palpitations, and edema, Respiratory: Negative for shortness of breath, cough, wheezing, and pleuritic chest pain, Abdomen/GI: + left sided abd pain and nausea Back: + left flank pain : + dysuria MS/Extremity: Negative for injury and deformity, Skin: Negative for injury, rash, and discoloration, Neuro: Negative for headache, weakness, numbness, tingling, and seizure. Exam: 06:50 Constitutional: This is a well developed, well nourished patient who is awake, alert, rn appears uncomfortable Head/Face: Normocephalic, atraumatic. Cardiovascular: Tachycardic, regular Respiratory: Hyperventilating Neuro: Awake and alert, GCS 15 Vital Signs: 05:30 BP 138 / 66; Pulse 140; Resp 20; Temp 97.6; Pulse Ox 100% ; Weight 63.5 kg; Height 5 ea ft. 3 in. (160.02 cm); 07:30 Pulse 139; Resp 20; Pulse Ox 98% on R/A; ss 09:12 BP 144 / 128; Pulse 126; Resp 18 S; Pulse Ox 97% on R/A; Pain 7/10; ec1 10:01 BP 109 / 81; Pulse 123; Resp 16 S; Pulse Ox 98% on R/A; ec1 05:30 Body Mass Index 24.80 (63.50 kg, 160.02 cm) ea MDM: 06:47 Patient medically screened. rn 08:13 ED course: patient has uti and pyelonephritis and she also likely has left kidney ma2 stone, she is tachycardic and has wbc 12K, and still in pain despite morphine. i explained need for US or CT to rule out infected obstructing stone..s she states she had any ct and has a urologist that she will see in the next 2 days. and declined any kind of imaging. . 11:28 Differential diagnosis: nephrolithiasis, pyelonephritis, UTI. Data reviewed: vital ma2 signs, nurses notes. Counseling: I had a detailed discussion with the patient and/or guardian regarding: the historical points, exam findings, and any diagnostic results supporting the discharge/admit diagnosis, the presence of at least one elevated blood pressure reading (>120/80) during this emergency department visit, the need for outpatient follow up. Response to treatment: the patient's symptoms have resolved after treatment. 05/02 05:12 Order name: Urine Microscopic Only; Complete Time: 07:14 rn 05/02 06:30 Order name: Urine Dipstick--Ancillary (enter results); Complete Time: 07:14 sg 05/02 06:30 Order name: Urine --Ancillary (enter results); Complete Time: 07:14 sg 05/02 06:47 Order name: CBC with Diff rn 05/02 06:47 Order name: Basic Metabolic Panel rn 05/02 06:47 Order name: CBC with Automated Diff; Complete Time: 07:59 EDMS 05/02 06:47 Order name: Basic Metabolic Panel; Complete Time: 07:59 EDMS 05/02 06:49 Order name: Urine Culture EDMS 05/02 09:29 Order name: Renal Ultrasound-Complete; Complete Time: 10:53 EDMS 05/02 05:12 Order name: Urine Test (obtain specimen); Complete Time: 06:24 rn 05/02 05:12 Order name: Urine Dipstick-Ancillary (obtain specimen); Complete Time: 06:25 rn 05/02 06:47 Order name: IV Start; Complete Time: 06:47 rn Administered Medications: 07:15 Drug: Flomax 0.4 mg Route: PO; ss 08:05 Follow up: Response: No adverse reaction; No change in condition ss 07:21 Drug: Zofran (Ondansetron) 4 mg Route: IVP; Site: left antecubital; ss 08:05 Follow up: Response: No adverse reaction ss 11:49 Follow up: Response: No adverse reaction ec1 07:23 Drug: morphine 4 mg Route: IVP; Site: left antecubital; ss 08:05 Follow up: Response: No adverse reaction; Pain is unchanged, physician notified ss 11:48 Follow up: Response: No adverse reaction ec1 07:25 Drug: NS 0.9% 1000 ml Route: IV; Rate: 1000 ml; Site: left antecubital; ss 09:00 Follow up: IV Status: Completed infusion; IV Intake: 1000ml ec1 07:27 Drug: Magnesium Sulfate 1 grams Route: IVPB; Infused Over: 1 hrs; Site: left ss antecubital; 09:00 Follow up: IV Status: Completed infusion ec1 08:05 Drug: Dilaudid 2 mg Route: IVP; Site: left antecubital; ss 09:01 Follow up: Response: Pain is decreased ec1 08:12 Drug: Zofran (Ondansetron) 4 mg Route: IVP; Site: left antecubital; ss 09:01 Follow up: Response: No adverse reaction ec1 08:20 Drug: Rocephin 1 grams Route: IV; Rate: calculated rate; Site: left antecubital; ss 09:00 Follow up: IV Status: Completed infusion ec1 10:05 Drug: morphine 4 mg Route: IVP; Site: left antecubital; ec1 10:56 Follow up: Response: Pain is unchanged, physician notified ec1 11:06 Drug: Bell 5 mg-325 mg 1 tabs Route: PO; ec1 11:47 Follow up: Response: No adverse reaction ec1 Disposition: 05/02/20 11:29 Discharged to Home. Impression: Cystitis, unspecified without hematuria, Calculus of kidney and ureter - left. - Condition is Stable. - Discharge Instructions: Dietary Guidelines to Help Prevent Kidney Stones. - Prescriptions for Diclofenac Sodium 75 mg Oral Tablet Sustained Release - take 1 tablet by ORAL route 2 times per day; 30 tablet. Bactrim DS 800- 160 mg Oral Tablet - take 1 tablet by ORAL route every 12 hours for 5 days; 10 tablet. cefdinir 300 mg Oral capsule - take 1 capsule by ORAL route every 12 hours; 20 capsule. Reglan 10 mg Oral Tablet - take 1 tablet by ORAL route every 6 hours . take 30 minutes before meals and at bedtime; 100 tablet. Flomax 0.4 mg Oral Capsule, Sust. Release 24 hr - take 1 capsule by ORAL route once daily 1/2 hour following the same meal each day; 30 capsule. promethazine 25 mg Oral Tablet - take 1 tablet by ORAL route every 6 hours As needed; 20 tablet. Tramadol 50 mg Oral Tablet - take 1 tablet by ORAL route every 8 hours as needed; 12 tablet. - Medication Reconciliation Form, Thank You Letter, Antibiotic Education, Prescription Opioid Use form. - Follow up: Private Physician; When: Tomorrow; Reason: Continuance of care. Signatures: Dispatcher [employer] EDOH Indra Yee MD MD rn Smirch, Shelby, RN RN ss Antunez, Elena, RN RN ea Alzahri, Mohammad, MD MD ma2 Sonia Rosario RN RN ec1 Corrections: (The following items were deleted from the chart) 06:11 05:37 Stone Protocol+CT.RAD.BRZ ordered. EDOH EDOH 09:29 09:21 Rp Exam Limited+US.RAD.BRZ ordered. EDMS EDMS 11:49 11:29 05/02/2020 11:29 Discharged to Home. Impression: Cystitis, unspecified without ec1 hematuria; Calculus of kidney and ureter - left. Condition is Stable. Prescriptions for Diclofenac Sodium 75 mg Oral Tablet Sustained Release - take 1 tablet by ORAL route 2 times per day; 30 tablet, Bactrim DS 800-160 mg Oral Tablet - take 1 tablet by ORAL route every 12 hours for 5 days; 10 tablet, cefdinir 300 mg Oral capsule - take 1 capsule by ORAL route every 12 hours; 20 capsule. and Forms are Medication Reconciliation Form, Thank You Letter, Antibiotic Education, Prescription Opioid Use. Follow up: Private Physician; When: Tomorrow; Reason: Continuance of care. ma2
[2020-05-02 12:33] VITALS: TEMP 97.6
[2020-05-02 12:36] VITALS: BP 109/81; O2SAT 98
== END 2020-05-02 11:49 | disposition home or self-care (01) ==
LOC: ER 04:51
DX: N30.90 Cystitis, unspecified without hematuria (principal); N20.2 Calculus of kidney with calculus of ureter; F17.210 Nicotine dependence, cigarettes, uncomplicated; Z88.3 Allergy status to other anti-infective agents
CPT/HCPCS: 96365; 87088; 85025; 87086; 80048; 36415; 81025; 76770; 96375; 99284; J1170; J3475; J0696; J7030 ×2; J2405 ×2; 81003; 81015

== ENCOUNTER 2020-05-27 16:59 | Emergency (ER) | payer OTHER ==
--- OUTSIDE RECORDS SUMMARY | 2020-05-27 17:02 | XMS REPORT | Continuity of Care Document ---
:1995 Author Organization [facility] t Address [address] [place] [address] Care Team Providers Name Role Phone Shant MURRAY Attending Clinician Doctor Unassigned, Name Attending Clinician Unavailable PASCUAL Attending Clinician Unavailable Payers Payer Name Policy Type Policy Number Effective Date Expiration Date S ource Problems This patient has no known problems. Allergies, Adverse Reactions, Alerts Allergy Allergy Status Severity Reaction(s) Onset Inactive Treating Comm ents Source Name Type Date Date Clinician Unable DA Active U 2020-0 [facility] to 2-20 [facility] 00:00: 00 metoclop DA Active U 2019-03 [facility] ramide 03-16 [facility] 00:00: d 00 [facility] doxycycl DA Active MO 2019-03 [facility] ine 03-16 [facility] 00:00: d 00 [facility] azithrom DA Active MO 2019-03 [facility] ycin 03-16 [facility] 00:00: d 00 [facility] doxycycl DA Active SV 2016- [facility] ine 2- Clear 00:00: Ng 00 [facility] Doxycycl Drug Active [facility]ergy Breath [facility] 00 [place] Azithrom Drug Active [facility] Allergy Breath 04-01 [facility]: [facility] 00 [place] azithrom DA Active SV [facility] ycin 09 Clear 00:00: Ng 00 [facility] Social History Social Habit Start Date Stop Date Quantity Comments Source Sex Assigned At [facility] Alcohol intake 2016-04-01 2016-04-01 Current [facility] es - 00:00:00 00:00:00 non-drinker of Medical Ce nter alcohol (finding) Smoking Status Start Date Stop Date Source Current every day smoker 2016-04-01 00:00:00 [facility] Medications Ordered Filled Start Stop Current Ordering Indication Dosage Frequency Signature Comments Components Source Medication Medication Date Date Medication? Clinician (SIG) Name Name ACETAZOLAMI Yes Take by [facility] DE ORAL 04-01 mouth. [facility] - 21:52: Medical 55 [place] Vital Signs Vital Name Observation Time Observation Value Comments Source 02 Sat by Pulse Oximetry 2020-05-07 07:49:50 100 /min Body Mass Index 2020-05-07 07:49:50 49.4 Height 2020-05-07 07:49:50 157.48\\S\\62 Pulse Rate 2020-05-07 07:49:50 87 /min Respiratory Rate 2020-05-07 07:49:50 18 /min Temperature 2020-05-07 07:49:50 37\\S\\98.6 Weight 2020-05-07 07:49:50 175525.939\\S\\4320 Respiratory 2020-05-07 07:49:50 No respiratory distress /min Respiratory 2020-05-05 23:26:04 No respiratory distress /min 02 Sat by Pulse Oximetry 2020-05-05 23:26:04 100 /min Body Mass Index 2020-05-05 23:26:04 49.4 Height 2020-05-05 23:26:04 157.48\\S\\62 Pulse Rate 2020-05-05 23:26:04 87 /min Respiratory Rate 2020-05-05 23:26:04 18 /min Temperature 2020-05-05 23:26:04 37\\S\\98.6 Weight 2020-05-05 23:26:04 882717.939\\S\\4320 Respiratory 2020-05-05 16:38:31 No respiratory distress /min 02 Sat by Pulse Oximetry 2020-05-05 16:38:31 100 /min Body Mass Index 2020-05-05 16:38:31 49.4 Height 2020-05-05 16:38:31 157.48\\S\\62 Pulse Rate 2020-05-05 16:38:31 152 /min Respiratory Rate 2020-05-05 16:38:31 20 /min Temperature 2020-05-05 16:38:31 37.2\\S\\99.0 Weight 2020-05-05 16:38:31 476333.939\\S\\4320 Respiratory 2020-05-05 14:24:00 No respiratory distress /min 02 Sat by Pulse Oximetry 2020-05-05 14:24:00 100 /min Body Mass Index 2020-05-05 14:24:00 49.4 Height 2020-05-05 14:24:00 157.48\\S\\62 Pulse Rate 2020-05-05 14:24:00 152 /min Respiratory Rate 2020-05-05 14:24:00 20 /min Temperature 2020-05-05 14:24:00 37.2\\S\\99.0 Weight 2020-05-05 14:24:00 291758.939\\S\\4320 02 Sat by Pulse Oximetry 2020-05-05 13:30:25 100 /min Body Mass Index 2020-05-05 13:30:25 49.4 Height 2020-05-05 13:30:25 157.48\\S\\62 Pulse Rate 2020-05-05 13:30:25 152 /min Respiratory Rate 2020-05-05 13:30:25 20 /min Temperature 2020-05-05 13:30:25 37.2\\S\\99.0 Weight 2020-05-05 13:30:25 640175.939\\S\\4320 02 Sat by Pulse Oximetry 2020-05-05 13:17:41 100 /min Body Mass Index 2020-05-05 13:17:41 49.4 Height 2020-05-05 13:17:41 157.48\\S\\62 Pulse Rate 2020-05-05 13:17:41 152 /min Respiratory Rate 2020-05-05 13:17:41 20 /min Temperature 2020-05-05 13:17:41 37.2\\S\\99.0 Weight 2020-05-05 13:17:41 085183.939\\S\\4320 02 Sat by Pulse Oximetry 2020-05-05 13:15:39 100 /min Body Mass Index 2020-05-05 13:15:39 49.4 Height 2020-05-05 13:15:39 157.48\\S\\62 Pulse Rate 2020-05-05 13:15:39 152 /min Respiratory Rate 2020-05-05 13:15:39 20 /min Temperature 2020-05-05 13:15:39 37.2\\S\\99.0 Weight 2020-05-05 13:15:39 039336.939\\S\\4320 WEIGHT 2020-05-05 13:11:00 122.311320 kg HEIGHT 2020-05-05 13:11:00 157.48 cm Procedures This patient has no known procedures. Encounters Start End Encounter Admission Attending Care Care Encounter Source Date/Time Date/Time Type Type Clinicians Facility Department ID 2020-04-27 2020-04-27 Emergency Bran, [facility] [place] [id number] 20:41:00 23:12:00 Mary Fischer 350.1.13.10 [place] 4.2.7.2.686 [place] [id number] 2020-04-27 2020-04-27 Orders Doctor COLE [id number] 00:00:00 00:00:00 Only Unassigned, KEVYN 350.1.13.[address] [place] [facility] 4.2.7.2.686 [id number] 2019-05-01 2019-05-01 Emergency PASCUAL, [facility] 064 [id number] [place] 00:00:00 00:00:00 [place] [address] Results Test Description Test Time Test Comments Results Result Comments Source LACTIC ACID 2020-04-25 02:52:00 Test Item Value Reference Range Interpretation Comme nts LACTIC ACID (test code = LACT) 1.0 mmol/L 0.7-2.0 N COMPREHENSIVE METABOLIC [id number] 02:28:00 Test Item Value Reference Range Interpretation Comments SODIUM (test code = 142 mmol/L 137-145 N NA) POTASSIUM (test code 3.6 mmol/L 3.4-5.0 N = K) CHLORIDE (test code 107 mmol/L 98-107 N = CL) CARBON DIOXIDE (test 22 mmol/L 22-30 N code = CO2) GLUCOSE (test code = 114 mg/dL 74-106 H GLU) BLOOD UREA NITROGEN 11 mg/dL 7-17 N (test code = BUN) GLOMERULAR 72 >60 The estimated FILTRATION RATE glomerular f iltration (test code = GFR) rate is co mputed usingpatient ra ce, age (>18), sex, and serum creatinine. If anyof the needed data elements are mi ssing the Laboratory cannot compute an kasia mation of the glomerul ar filtration rate . CREATININE (test 1.0 mg/dL 0.5-1.0 N code = CREAT) TOTAL PROTEIN (test 8.3 g/dL 6.3-8.2 H code = PROT) " A positive bias m ay occur for patients ta carlos Eltrombopag(a b one marrow stimulan t used to treat thrombocytopeni a andaplastic anemia)." ALBUMIN (test code = 4.9 g/dL 3.5-5.0 N ALB) CALCIUM (test code = 9.7 mg/dL 8.4-10.2 N CA) BILIRUBIN TOTAL 0.3 mg/dL 0.2-1.3 N "A [...] REPLACEMENT ASS AY FOR DIRECTBILIRUBIN . BILIRUBIN 0.3 mg/dL 0-1.1 N UNCONJUGATED (test code = BILUNC) SGOT/AST (test code 51 U/L 15-46 H = AST) SGPT/ALT (test code 20 U/L 0-34 N = ALT) ALKALINE PHOSPHATASE 72 U/L 38-126 N (test code = ALKP) UA RFLX MICR CULT IF [id number] 01:22:00 Test Item Value Reference Range Interpretation Comments UA COLOR (test code DARK YELLOW Yellow = COLU) UA APPEARANCE (test Cloudy Clear A code = APPU) UA GLUCOSE DIPSTICK Negative Negative (test code = DGLUU) UA BILIRUBIN Negative Negative DIPSTICK (test code = BILU) UA KETONE DIPSTICK Trace mg/dL Negative A (test code = KETU) UA SPECIFIC GRAVITY 1.030 <1.030 (test code = SGU) UA BLOOD DIPSTICK Negative Negative (test code = CATHERINE) UA PH DIPSTICK (test 5.0 5.0-8.0 code = OG) UA PROTEIN DIPSTICK 30 (1+) mg/dL Negative A (test code = PROU) UA UROBILINOGEN 2.0 mg/dL Negative A DIPSTICK (test code = URO) UA NITRITE DIPSTICK Negative Negative (test code = EDVIN) UA LEUKOCYTE NEGATIVE Negative ESTERASE DIPSTICK (test code = LEUU) UA WBC (test code = 6-10 /HPF See_Comment A <10 WBC/ HPF = WBCUR) PYURIA ABSENT URINE CULTURE NOT INDICATED [Automated message] The system which generated this result transmit jose reference range : <4-5. The reference range was not used to interpret this result as normal/abnormal . UA RBC (test code = 4-5 /HPF See_Comment A [Automa jose RBCU) message] The system which generated this result transmit jose reference range : <4-5. The reference range was not used to interpret this result as normal/abnormal . UA BACTERIA (test None /HPF None-Rare code = BACU) UA SQUAMOUS CELLS 6-15 (FEW) /HPF See_Comment A [Autom ated (test code = SQU) message] T he system which generated this result transmit jose reference range : 0-5 (RARE). The reference range was not used to interpret this result as normal/abnormal . UA MUCUS (test code 4+ /LPF See_Comment A [Automa jose = MUCU) message] The system which generated this result transmit jose reference range : <Rare. The reference range was not used to interpret this result as normal/abnormal . Indication for culture: Flank PainSOURCE OF URINE: CLEAN CATCHUR HCG QUAL 2020-04-25 01:22:00 Test Item Value Reference Range Interpretation Comments UR HCG QUAL (test code = HCGQLU) NEGATIVE NEGATIVE Indication for culture: Flank PainSOURCE OF URINE: CLEAN CATCHUA RFLX MICR CULT IF [id number] 01:19:00 Test Item Value Reference Range Interpretation Comments UA COLOR (test code DARK YELLOW Yellow = COLU) UA APPEARANCE (test Cloudy Clear A code = APPU) UA GLUCOSE DIPSTICK Negative Negative (test code = DGLUU) UA BILIRUBIN Negative Negative DIPSTICK (test code = BILU) UA KETONE DIPSTICK Trace mg/dL Negative A (test code = KETU) UA SPECIFIC GRAVITY 1.030 <1.030 (test code = SGU) UA BLOOD DIPSTICK Negative Negative (test code = CATHERINE) UA PH DIPSTICK (test 5.0 5.0-8.0 code = OG) UA PROTEIN DIPSTICK 30 (1+) mg/dL Negative A (test code = PROU) UA UROBILINOGEN 2.0 mg/dL Negative A DIPSTICK (test code = URO) UA NITRITE DIPSTICK Negative Negative (test code = EDVIN) UA LEUKOCYTE NEGATIVE Negative ESTERASE DIPSTICK (test code = LEUU) UA WBC (test code = 6-10 /HPF See_Comment A <10 WBC/ HPF = WBCUR) PYURIA ABSENT URINE CULTURE NOT INDICATED [Automated message] The system which generated this result transmit jose reference range : <4-5. The reference range was not used to interpret this result as normal/abnormal . UA RBC (test code = 4-5 /HPF See_Comment A [Automa jose RBCU) message] The system which generated this result transmit jose reference range : <4-5. The reference range was not used to interpret this result as normal/abnormal . UA BACTERIA (test None /HPF None-Rare code = BACU) UA SQUAMOUS CELLS 6-15 (FEW) /HPF See_Comment A [Autom ated (test code = SQU) message] T he system which generated this result transmit jose reference range : 0-5 (RARE). The reference range was not used to interpret this result as normal/abnormal . UA MUCUS (test code 4+ /LPF See_Comment A [Automa jose = MUCU) message] The system which generated this result transmit jose reference range : <Rare. The reference range was not used to interpret this result as normal/abnormal . Indication for culture: Flank PainSOURCE OF URINE: CLEAN CATCHUR HCG QUAL 2020-04-25 01:19:00 Test Item Value Reference Range Interpretation Comments UR HCG QUAL (test code = HCGQLU) NEGATIVE Indication for culture: Flank PainSOURCE OF URINE: CLEAN CATCHLACTIC ACID 2020-04-25 00:52:00 Test Item Value Reference Range Interpretation Comments LACTIC ACID (test 2.1 mmol/L 0.7-2.0 HH Critical V alue reported code = LACT) toFirst Name: [id number] Last Name:CHEL JUNG [employer] ShuklaLAB.MG, on , @ 0052. [id number] 00:50:00 Test Item Value Reference Range Interpretation Comments LIPASE (test code = LIP) 54 U/L 23-300 N CBC W/AUTO [id number] 00:49:00 Test Item Value Reference Range Interpretation Comments WHITE BLOOD CELL (test code = 11.7 x10 3/uL 5.0-12.0 N WBC) RED BLOOD CELL (test code = 4.28 x10 6/uL 4.20-5.40 N RBC) HEMOGLOBIN (test code = HGB) 11.7 g/dL 12.0-16.0 L HEMATOCRIT (test code = HCT) 36.8 % 36.0-46.0 N MEAN CELL VOLUME (test code = 86 fL 81-99 N MCV) MEAN CELL HGB (test code = MCH) 27.3 pg 27-31 N MEAN CELL HGB CONCENTRATION 31.8 g/dL 33-37 L (test code = MCHC) RED CELL DISTRIBUTION WIDTH 15.9 % 11.5-15.5 H (test code = RDW) PLATELET COUNT (test code = 502 x10 3/uL 130-400 H PLT) MEAN PLATELET VOLUME (test code 9.8 fL 9.4-16.4 N = MPV) NEUTROPHIL % (test code = NT%) 62.3 % 43-65 N IMMATURE GRANULOCYTE % (test 0.2 % 0.0-2.0 N code = IG%) LYMPHOCYTE % (test code = LY%) 30.0 % 20.5-45.5 N MONOCYTE % (test code = MO%) 6.3 % 5.5-11.7 N EOSINOPHIL % (test code = EO%) 0.9 % 0.9-2.9 N BASOPHIL % (test code = BA%) 0.3 % 0.2-1.0 N NUCLEATED RBC % (test code = 0.0 % 0-1.0 N NRBC%) NEUTROPHIL # (test code = NT#) 7.29 x10 3/uL 2.2-4.8 H IMMATURE GRANULOCYTE # (test 0.02 x10 3/uL 0-0.03 N code = IG#) LYMPHOCYTE # (test code = LY#) 3.51 x10 3/uL 1.3-2.9 H MONOCYTE # (test code = MO#) 0.74 x10 3/uL 0.3-0.8 N EOSINOPHIL # (test code = EO#) 0.11 x10 3/uL 0.0-0.2 N BASOPHIL # (test code = BA#) 0.04 x10 3/uL 0.0-0.1 N - US RETRO [id number] 00:16:00 [facility] 1995 Sex: F [place]: St: REG Name: NATIVIDAD GREGG [facility] : 1995 Age/S: 24/F [address] Unit #: [id number] Loc: [place] [address] Phys: Luis Goddard NP Acct: [id number] Dis Date: Status: REG ER PHONE #: [phone] Exam Date: 04/24/2020 0005 FAX #: [phone] Reason: left flank pain EXAMS: CPT CODE: [id number] US RETRO LTD 93613 EXAM: - US RETRO LTD LOCATION: 7 HISTORY: 24 years-year old Female with left flank pain TECHNIQUE: Grayscale B-mode and color Doppler sonographic images of the kidneys were performed. COMPARISON: None available FINDINGS: The right kidney measures 10.8 x 4.6 x 4.5 cm with normal echogenicity. No hydronephrosis or nephrolithiasis. No focal lesions. The left kidney measures 11.3 x 5 x 5.4 cm with normal echogenicity. No hydronephrosis.A punctate nonobstructing stone is seen in the left kidney. No focal lesions. IMPRESSION: A punctate nonobstructing stone is seen in the left kidney. at 0016 Reported and signed by: Leonel Delacruz MD CC: Technologist: Francine Jimenez [facility] RVT Trnscrd Date/Time/By: 04/25/2020 (0016) : By: carrie WASHINGTONMKW1 PAGE 1 Signed Report [place]: St: REG Name: NATIVIDAD GREGG [facility] : 1995 Age/S: 24/F [address] Unit #: [id number] Loc: [place] [address] Phys: Luis Goddard NP Acct: [id number] Dis Date: Status: REG ER PHONE #: [phone] Exam Date: 04/24/2020 0005 FAX #: [phone] Reason: left flank pain EXAMS: CPT CODE: [id number] RETRO LTD 42262 <Continued> Orig Print D/T: S: 04/25/2020 (0019) PAGE 2 Signed ReportCOVID 19 INHOUSE [id number] 21:16:00 Test Item Value Reference Range Interpretation Comments COVID 19 INHOUSE AG NEGATIVE Negative Per [facility] facturer, (test code = negative result s should [id number]) be treated aspr esumptive and, if inconsi stent with clinical signs andsymptoms or necessary for patient man agement, should betested with an alternative mol ecular assay. Negative resultsdo not preclude SA RS-CoV-2 infection and s hould not be usedas the s ole basis for patient man agement decisions. Neg ative results should be considered in t he context of apatient's r ecent exposures, hist ory, presence of cli nicalsigns and symptoms co nsistent with COVID-19. - XR CHEST 1 [id number] 20:44:00 [facility] : 1995 [facility]: [facility] 1995 Age/S: 24 / F [address] Unit #: [id number] Loc: [place] [address] Phys: Anita Kruse MD Acct: [id number] Dis Date: Status: REG ER PHONE #: [phone] Exam Date: 01/18/20202023 FAX #: Reason: Code Sepsis EXAMS: CPT: [id number] XR CHEST 1 V 78781 Fluoro Time: DAP (Gy m2): Air Kerma [...] PAGE 1 Signed Report Name: NATIVIDAD GREGG [place] : 1995 Age/S: 24 / F [address] Unit #: [id number] Loc: [place] [address] Phys: Anita Kruse MD Acct: [id number] Dis Date: Status: REG ER PHONE #: [phone] Exam Date: 01/18/20202023 FAX #: Reason: Code Sepsis EXAMS: CPT: [id number] XR CHEST 1 V 57202 Fluoro Time: DAP (Gy m2): Air Kerma (mGy): <Continued> Technologist: Brandi Clark RT(R)(CT) Trnscb Date/Time: 01/18/2020 (2043) MistyVR5 Orig Print D/T: S: 01/18/2020 (2047) PAGE 2 Signed ReportUA RFLX MICR CULT IF [id number] 20:17:00 Test Item Value Reference Range Interpretation [...] UACULT) Indication for culture: Suprapubic PainBASIC METABOLIC [id number] 20:13:00 Test Item Value Reference Range Interpretation [...] 8.5-10.1 N Completed by Nursing: NOHEPATIC FUNCTION [id number] 20:13:00 Test Item Value Reference Range Interpretation [...] N code = ALKP) Completed by Nursing: [id number] 20:13:00 Test Item Value Reference Range Interpretation [...] jesse yby method. Completed by Nursing: NOLACTIC [id number] 20:13:00 Test Item Value Reference Range Interpretation Comments LACTIC ACID (test code = LACT) 1.8 mmol/L 0.4-2.0 N CBC W/AUTO [id number] 19:57:00 Test Item Value Reference Range Interpretation [...] NO DIFF/SCN CRITERIA = MDIFF) BASIC METABOLIC [id number] 07:22:00 Test Item Value Reference Range Interpretation [...] 8.7 mg/dL 8.4-10.2 N CA) CBC W/AUTO [id number] 07:03:00 Test Item Value Reference Range Interpretation [...] 0.05 x10 3/uL 0.0-0.1 N BASIC METABOLIC [id number] 05:56:00 Test Item Value Reference Range Interpretation [...] 8.4 mg/dL 8.4-10.2 N CA) CBC W/AUTO [id number] 05:42:00 Test Item Value Reference Range Interpretation [...] *LDL Cholesterol<1 00mg/ dL: Desirable L DL-C hzttbijwbsfhz02 0-159 mg/dL: Borderli ne High Risk LDL-C imhagnkshebko47 0-189 mg/dL: High ris k LDL-C concentra [...] AVG 11.04~~~~~~~~~~ ~~~~~~~ ~~~~~~~~~~~~~~~ ~~~~~~~ ~~~~~~~~~~~~~~~ ~~~~~~N [facility] shubham Education (WIEP ) Guidelines:~~~~ ~~~~~~~ ~~~~~~~~~~~~~~~ ~~~~~~~ ~~~~~~~~~~~~~~~ ~~~~~~~ ~~~~~ HDL Cholesterol<4 0mg/dL: HDL Cholesterol (Major risk factor for CHD)>60mg/dL: H DL Cholesterol (Ne gative risk factor for CHD)40-59mg/dL: Borderline Risk L DL Cholesterol<1 00mg/dL : Desirable LDL -C nsixshlxspmra43 0-159mg /dL: Borderline High Risk LDL-C 0-189mg /dL: High risk LDL-C concentration H DL-LDL Cholesterol is affected by a n umber of factors such as smoking, age an d sex.~~~~~~~~~~~ ~~~~~~~ ~~~~~~~~~~~~~~~ ~~~~~~~ ~~~~~~~~~~~~~~~ ~~~~~ LACTIC [id number] 17:52:00 Test Item Value Reference Range Interpretation Comments LACTIC ACID (test code = LACT) 1.6 mmol/L 0.7-2.0 N Coronavirus 2019 nCoV [id number] 17:03:00 Test Item Value Reference Range Interpretation Comments Coronavirus 2019 Negative NEGATIVE This test h as been nCoV Bedside (test authorize d by FDA under code = [id number]) an EUA for use byauthorized laboratories; This [...] and/o r diagnosis of CO VID-19 under Ujlueko58 4(b)(1) of the Act, 21 U.S .C. 360bbb-3(b)(1), unless theauthorizatio n is terminated or r evoked sooner. LACTIC [id number] 16:44:00 Test Item Value Reference Range Interpretation Comments LACTIC ACID (test 2.1 mmol/L 0.7-2.0 HH Critical V alue reported code = LACT) toFirst Name:UTE D6486 Last Name:CHEL JUNG [employer] Love C.LAB.LAS1, on 01/15/20, @ 164 4. UA RFLX MICR CULT IF [id number] 16:42:00 Test Item Value Reference Range Interpretation [...] for culture: Dysuria/FrequencySOURCE OF URINE: CLEAN CATCHLACTIC [id number] 15:54:00 Test Item Value Reference Range Interpretation Comments LACTIC ACID (test 2.6 mmol/L 0.7-2.0 HH Critical V alue reported code = LACT) toFirst Name:WV I8356 Last Name:[facility] FABIANA [employer] Love C.LAB.LAS1, on 01/15/20, @ 155 4. BASIC METABOLIC [id number] 15:50:00 Test Item Value Reference Range Interpretation [...] 9.6 mg/dL 8.4-10.2 N CA) LIVER FUNCTION [id number] 15:50:00 Test Item Value Reference Range Interpretation [...] U/L 38-126 N (test code = ALKP) [id number] 15:50:00 Test Item Value Reference Range Interpretation Comments LIPASE (test code = LIP) 47 U/L 23-300 N PROTHROMBIN [id number] 15:50:00 Test Item Value Reference Range Interpretation [...] - 3.0 Atrial fibrillation 2.0 - 3.03. Carpet Repairer al prosthetic valv es (high risk) 2.5 - 3.5 * If oral anticoagulant t herapy is elected to preventrecurren t myocardial infa rction, an INR of 2.5-3 .5 isrecommended, consistent with Food and Drug Administrationr ecommen dations. THROMBOPLASTIN TIME [id number] 15:50:00 Test Item Value Reference Range Interpretation Comments THROMBOPLASTIN TIME 31.8 SECONDS 23.4-37.0 N Therap eutic Range PARTIAL (test code = for Hep katherine PTT) EFFECTIVE Heparin IU/mL aPT T Seconds0.3 64.30.7 88.8 BASIC METABOLIC [id number] 15:49:00 Test Item Value Reference Range Interpretation [...] 9.6 mg/dL 8.4-10.2 N CA) LIVER FUNCTION [id number] 15:49:00 Test Item Value Reference Range Interpretation [...] U/L 38-126 N (test code = ALKP) [id number] 15:49:00 Test Item Value Reference Range Interpretation Comments LIPASE (test code = LIP) U/L 23-300 CBC W/AUTO [id number] 15:30:00 Test Item Value Reference Range Interpretation [...] 3/uL 0.0-0.1 N - XR CHEST 1 [id number] 15:03:00 [facility] : 1995 Sex: F [place]: St: DIS Name: NATIVIDAD GREGG [facility] Randy : 1995 Age/S: 24/F [address] Unit #: [id number] Loc: [address] [place] [address] Phys: Victorino Schofield Acct: [id number] Dis Date: [id number] Status: DIS IN PHONE #: [phone] Exam Date: 01/15/2020 1450 FAX #: [phone] Reason: CODE SEPSIS EXAMS: CPT CODE: [id number] XR CHEST 1 V 11849 EXAM: Portable chest x-ray, one view INDICATION: [...] CC: Technologist: HARJEET CASE; STUDENT 2ND YEAR [facility] Date/Time/By: 01/15/2020 (2127) : By: Jaydon PAGE 1 Signed Report [place]: St: DIS Name: NATIVIDAD GREGG [facility] Randy : 1995 Age/S: 24/F [address] Unit #: [id number] Loc: [place] [address] Phys: Mason Schofield Acct: [id number] Dis Date: [id number] Status: DIS IN PHONE #: [phone] Exam Date: 01/15/2020 0936 FAX #: [phone] Reason: CODE SEPSIS EXAMS: CPT CODE: [id number] XR CHEST 1 V 04011 <Continued> Orig Print D/T: S: 01/15/2020 (1507) PAGE 2 Signed Report- XR CHEST 1 [id number] 15:03:00[facility] : 1995 Sex: F [place]: St: PRE Name: NATIVIDAD GREGG [facility] Randy : 1995 Age/S: 24/F [address] Unit #: [id number] Loc: [place] [address] Phys: Victorino Schofield Acct: [id number] Dis Date: Status: PRE ER PHONE #: [phone] Exam Date: 01/15/2020 1453 FAX #: [phone] Reason: CODE SEPSIS EXAMS: CPT CODE: [id number] XR CHEST 1 V 93135 EXAM: Portable chest x-ray, one view INDICATION: [...] thickening suggest bronchitis and/or viral pneumonitis. at 0431 Reported and signed by: Mu Vallejo M.D. CC: Technologist: MANPREET COSBY; STUDENT 2ND YEAR Trnnmrd Date/Time/By: 01/15/2020 (7590) : By: Jaydon PAGE 1 Signed Report [place]: St: PRE Name: NATIVIDAD GREGG [facility] : 1995 Age/S: 24/F [address] Unit #: [id number] Loc: [place] [address] Phys: Mason Schofield Acct: [id number] Dis Date: Status: PRE ER PHONE #: [phone] Exam Date: 01/15/2020 3313 FAX #: [phone] Reason: CODE SEPSIS EXAMS: CPT CODE: [id number] XR CHEST 1 V 93288 <Continued> Orig Print D/T: S: 01/15/2020 (0248) PAGE 2 Signed ReportLACTIC [id number] 01:50:00 Test Item Value Reference Range Interpretation Comments LACTIC ACID (test code = LACT) 1.2 mmol/L 0.7-2.0 N COMPREHENSIVE METABOLIC [id number] 00:45:00 Test Item Value Reference Range Interpretation [...] N (test code = ALKP) HCG SERUM [id number] 00:45:00 Test Item Value Reference Range Interpretation Comments HCG SERUM QUAL (test code = HCGQL) NEGATIVE NEGATIVE LACTIC [id number] 00:13:00 Test Item Value Reference Range Interpretation Comments LACTIC ACID (test 2.3 mmol/L 0.7-2.0 HH Critical V alue reported code = LACT) toFirst Name:AYAN [id number] Last Name:CHEL JUNG READ BACK AND [employer] SuhklaLAB.WR, on , @ 0013. UA RFLX MICR CULT IF [id number] 00:06:00 Test Item Value Reference Range Interpretation [...] Dysuria/FrequencySOURCE OF URINE: CLEAN CATCH COMPREHENSIVE METABOLIC [id number] 23:43:00 Test Item Value Reference Range Interpretation [...] N (test code = ALKP) HCG SERUM [id number] 23:43:00 Test Item Value Reference Range Interpretation Comments HCG SERUM QUAL (test code = HCGQL) NEGATIVE CBC W/AUTO [id number] 23:38:00 Test Item Value Reference Range Interpretation [...] BA#) 0.06 x10 3/uL 0.0-0.1 N LACTIC [id number] 19:19:00 Test Item Value Reference Range Interpretation Comments LACTIC ACID (test code = LACT) 1.6 mmol/L 0.7-2.0 N UA RFLX MICR CULT IF [id number] 18:41:00 Test Item Value Reference Range Interpretation [...] Flank PainSOURCE OF URINE: CLEAN CATCHBASIC METABOLIC [id number] 18:39:00 Test Item Value Reference Range Interpretation [...] 10.0 mg/dL 8.4-10.2 N CA) LIVER FUNCTION [id number] 18:39:00 Test Item Value Reference Range Interpretation [...] U/L 38-126 N (test code = ALKP) [id number] 18:39:00 Test Item Value Reference Range Interpretation Comments LIPASE (test code = LIP) 81 U/L 23-300 N BASIC METABOLIC [id number] 18:37:00 Test Item Value Reference Range Interpretation [...] 10.0 mg/dL 8.4-10.2 N CA) LIVER FUNCTION [id number] 18:37:00 Test Item Value Reference Range Interpretation [...] U/L 38-126 N (test code = ALKP) [id number] 18:37:00 Test Item Value Reference Range Interpretation Comments LIPASE (test code = LIP) U/L 23-300 - CT ABD PELVIS W/O [id number] 18:36:00 [facility] 1995 Sex: F FAX: Mayelin Santos [phone] [place]: St: PRE Name: NATIVIDAD GREGG [facility] : 1995 Age/S: 24/F [address] Unit: [id number] Loc: [place] [address] Phys: Mayelin Tyler [employer]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 at 1836 Reported and signed by: Lusi Neff MD PAGE 1 Signed Report (CONTINUED) FAX: Mayelin Santos [phone] [place]: St: PRE--------- Name: NATIVIDAD GREGG [facility] : 1995 Age/S: 24/F [address] Unit: [id number] Loc: [place] [address] Phys: Mayelin Mesa NP Acct: [id number] Dis Date: Status: PRE ER PHONE #: [phone] Exam Date: 01/13/2020 1820 FAX #: [phone] Reason: flank pain EXAMS: CPT CODE: [id number] CT ABD PELVIS W/O CONT [id number] <Continued> CC: Mayelin Tyler NP Technologist: Rosa Savage Trnscrd Dt/Tm: 01/13/2020 (1835) [id number] Orig Print D/T: S: 01/13/2020 (1839 PAGE 2 Signed ReportUA RFLX MICR CULT [...] Flank PainSOURCE OF URINE: CLEAN CATCHCBC W/AUTO [id number] 18:19:00 Test Item Value Reference Range Interpretation [...]
[2020-05-27 17:31] LABS: Absolute Lymphocytes (CBC) 4.1 K/uL (0.7-4.9); Basophils % 0.8 % (0-1.3); Hematocrit 32.5 % (36.0-45.0); Lymphocytes % 29.9 % (15.3-44.8); MPV 7.8 fL (7.6-11.3); RBC Red Blood Cell Count 3.96 M/uL (3.86-4.86)
[2020-05-27 17:47] LABS: Potassium 4.1 mmol/L (3.5-5.1)
[2020-05-27] MEDS ORDERED: MORPHINE 4 MG/ML SYR ONE (18:01)
[2020-05-27] MEDS ORDERED: ONDANSETRON 4 MG/2 ML VIAL ONE (18:01)
[2020-05-27] MEDS ORDERED: NA CHLORIDE 0.9% 50 ML ONE (18:33)
[2020-05-27] MEDS ORDERED: HYDROMORPHONE HCL 1 MG/ML INJ ONE ×2 (18:33→20:11)
[2020-05-27] MEDS ORDERED: NA CHLORIDE 0.9% 1,000 ML ONE (18:48)
[2020-05-27 19:31] LABS: Urine Blood NEGATIVE (NEG); Urine Glucose NEGATIVE (NEG); Urine Specific Gravity >1.030 (1.005-1.030)
[2020-05-27 19:32] LABS: Urine Protein TRACE (NEG); Urine pH 5.5 (5.0-7.0)
[2020-05-27] MEDS ORDERED: LORazepam 2 MG/ML VIAL ONE (19:43)
--- NOTE | 2020-05-27 20:39 | ER ---
Nurse's Notes [facility] Name: Ana Lilia Kline Age: 24 yrs Sex: Female : 1995 Arrival Date: 05/27/2020 Time: 17:09 Bed 5 Private MD: Diagnosis: Left flank pain Presentation: 05/27 17:09 Chief complaint: Patient states: Sever L flank pain with N/V for 1 hour. Coronavirus ll1 screen: Client denies travel out of the [place] in the last 14 days. At this time, the client does not indicate any symptoms associated with coronavirus-19. Ebola Screen: Patient denies travel to an Ebola-affected area in the 21 days before illness onset. Initial Sepsis Screen: Does the patient meet any 2 criteria? No. Patient's initial sepsis screen is negative. Does the patient have a suspected source of infection? Yes: Acute abdominal pain. Risk Assessment: Do you want to hurt yourself or someone else? Patient reports no desire to harm self or others. Onset of symptoms was May 27, 2020. 17:09 Method Of Arrival: Ambulatory ll1 17:09 Acuity: KATY 2 ll1 Historical: - Allergies: 17:11 Doxycycline; ll1 17:11 Haldol; ll1 17:11 Reglan; ll1 17:11 Toradol; ll1 17:11 Zithromax; ll1 - PMHx: 17:11 Asthma; Endometrosis; polycystic ovarian disease; sudotumor ceribri; ll1 - PSHx: 17:11 Cholecystectomy; endometriosis surgery; ll1 - Immunization history:: Adult Immunizations unknown. - Social history:: Smoking status: Patient reports the use of cigarette tobacco products, smokes one-half pack cigarettes per day. Screenin:00 Abuse screen: Denies threats or abuse. Denies injuries from another. Nutritional ss screening: No deficits noted. Tuberculosis screening: Never had TB. Fall Risk None identified. Assessment: 17:12 General: Appears distressed, uncomfortable, obese, Behavior is anxious, restless, ss Pacing . Denies fever, feeling ill, fatigue, chills. Pain: Complains of pain in L flank pain that began that began 1 hour ago Pain currently is 10 out of 10 on a pain scale. Quality of pain is described as aching, sharp, stabbing, Pain began 1 hour ago. Is continuous. Neuro: Level of Consciousness is awake, alert, obeys commands, Oriented to person, place, time, situation, Cigar Head Pegger are equal bilaterally Moves all extremities. Full function Speech is normal, Facial symmetry appears normal. Cardiovascular: Capillary refill < 3 seconds is brisk in bilateral fingers Patient's skin is warm and dry. Respiratory: Airway is patent Trachea midline Respiratory effort is labored, Respiratory pattern is regular, tachypnea. GI: Abd is soft and non tender X 4 quads. Reports nausea, Patient currently denies diarrhea. : No signs and/or symptoms were reported regarding the genitourinary system. Denies burning with urination, urinary frequency. EENT: Nares are clear Oral mucosa is moist. Derm: Skin is intact, is healthy with good turgor, Skin is dry, Skin is pink, warm \T\ dry. normal. Musculoskeletal: Circulation, motion, and sensation intact. Range of motion: intact in all extremities, Swelling absent. 18:00 Reassessment: Pt refused CT, is requesting an ultrasound rather. ss 18:38 Reassessment: No changes from previously documented assessment. Pt is pacing around ss room, stating that her pain has not changed. Dilaudid ordered and is now infusing over 30 minutes. Pt's ultrasound is delayed because she wanted pain medication first. 20:44 GI: Bowel sounds present X 4 quads. rv Vital Signs: 17:09 Pulse 143; Resp 32; Temp 97.4; Pulse Ox 100% ; Weight 127.01 kg; Height 5 ft. 2 in. ll1 (157.48 cm); Pain 10/10; 17:11 BP 152 / 83; ll1 17:12 Pulse 136; Resp 30; Pulse Ox 100% on R/A; Pain 9/10; ss 19:30 BP 123 / 105; Pulse 133; Resp 23; Pulse Ox 98% on R/A; rv 20:00 BP 117 / 56; Pulse 129; Resp 23; Pulse Ox 97% on R/A; rv 17:09 Body Mass Index 51.21 (127.01 kg, 157.48 cm) ll1 ED Course: 17:09 Patient arrived in ED. ll1 17:10 Triage completed. ll1 17:10 Meggan Randhawa FNP-C is PHCP. kb 17:10 Alexandro Bagley MD is Attending Physician. kb 17:11 Arm band placed on Patient placed in an exam room, on a stretcher. ll1 17:20 Inserted saline lock: 20 gauge antecubital area, using aseptic technique. Blood kj1 collected. 17:20 Initial lab(s) drawn, by me, sent to lab. Initial lab(s) drawn, by me, sent to lab. kj1 17:41 Thelma Castro, CIARRA is Primary Nurse. ss 18:00 Patient has correct armband on for positive identification. Bed in low position. Call ss light in reach. Side rails up X 1. Pulse ox on. NIBP on. 18:28 Ultrasound completed. Radiology exam delayed due to pt pacing in room , states is sg3 waiting for pain med. before u/s exam, nurse notified by pt. 19:25 Primary Nurse role handed off by Thelma Castro, CIARRA mw2 19:27 Eduar Mares, CIARRA is Primary Nurse. rv 20:39 US Rp Exam Complete In Process Unspecified. EDMS 20:40 Ultrasound completed. Patient tolerated well. Notified BANANA HANDLER/PA meggan. sg3 20:43 No provider procedures requiring assistance completed. IV discontinued, intact, rv bleeding controlled, No redness/swelling at site. Pressure dressing applied. Administered Medications: 17:48 Drug: morphine 4 mg Route: IVP; Site: left antecubital; ss 18:18 Follow up: Response: No adverse reaction; No change in condition ss 17:48 Drug: Zofran (Ondansetron) 4 mg Route: IVP; Site: left antecubital; ss 18:18 Follow up: Response: No adverse reaction; Pain is decreased; Nausea unchanged ss 18:36 Drug: NS 0.9% 1000 ml Route: IV; Rate: 1000 ml; Site: left antecubital; ss 20:43 Follow up: IV Status: Completed infusion; IV Intake: 1000ml rv 18:37 Drug: Dilaudid 1 mg Route: IVP; Infused Over: 30 mins; Site: left antecubital; ss 19:58 Follow up: Response: No adverse reaction; Pain is unchanged, physician notified; RASS: rv Restless (+1) 19:28 Drug: Ativan 1 mg Route: IVP; Site: left antecubital; rv 20:43 Follow up: Response: No adverse reaction rv 19:58 Drug: Dilaudid 1 mg {Note: RASS 1.} Route: IVP; Site: left antecubital; rv 20:43 Follow up: Response: No adverse reaction; Pain is decreased; RASS: Alert and Calm (0) rv Intake: 20:43 IV: 1000ml; Total: 1000ml. rv Outcome: 20:38 Discharge ordered by . charis 20:44 Discharged to home ambulatory. rv 20:44 Condition: good 20:44 Discharge instructions given to patient, Instructed on discharge instructions, follow up and referral plans. Demonstrated understanding of instructions, follow-up care. 20:44 Patient left the ED. rv Signatures: Dispatcher [employer] EDMS Meggan Randhawa, FENCE ERECTOR SUPERVISOR-C FENCE ERECTOR SUPERVISOR-Thelma Mackey, CIARRA RN Hawa Bryant 3 Chava Oconnell mw2 Eduar Mares RN RN Della Randhawa1 Carmencita Forman RN RN ll1 Corrections: (The following items were deleted from the chart) 17:34 17:33 Initial lab(s) drawn, by me, sent to lab. kj1 kj1 17:34 17:33 Initial lab(s) drawn, by me, sent to lab. kj1 kj1
--- NOTE | 2020-05-27 20:39 | EDPHYS ---
Physician Documentation [facility] Name: Ana Lilia Kline Age: 24 yrs Sex: Female : 1995 Arrival Date: 05/27/2020 Time: 17:09 Bed 5 Private MD: JOLANTA Physician Alexandro Bagley HPI: 05/27 19:12 This 24 yrs old Female presents to ER via Ambulatory with complaints of kb Possible Kidney Stone. 19:12 The patient complains of pain in the left flank. The pain does not radiate. Onset: The kb symptoms/episode began/occurred 1 hour(s) ago. Modifying factors: The symptoms are alleviated by nothing. the symptoms are aggravated by nothing. Associated signs and symptoms: Pertinent positives: nausea, vomiting. Severity of pain: At its worst the pain was severe in the emergency department the pain is unchanged. The patient has experienced similar episodes in the past, multiple times. The patient has not recently seen a physician. 19:35 Pt states she has a 4mm stone in the left ureter that she is trying to pass on her own. kb States sharp pain started an hour ago. Historical: - Allergies: 17:11 Doxycycline; ll1 17:11 Haldol; ll1 17:11 Reglan; ll1 17:11 Toradol; ll1 17:11 Zithromax; ll1 - PMHx: 17:11 Asthma; Endometrosis; polycystic ovarian disease; sudotumor ceribri; ll1 - PSHx: 17:11 Cholecystectomy; endometriosis surgery; ll1 - Immunization history:: Adult Immunizations unknown. - Social history:: Smoking status: Patient reports the use of cigarette tobacco products, smokes one-half pack cigarettes per day. ROS: 19:06 Constitutional: Negative for fever, chills, and weight loss, Cardiovascular: Negative kb for chest pain, palpitations, and edema, Respiratory: Negative for shortness of breath, cough, wheezing, and pleuritic chest pain, Abdomen/GI: Negative for abdominal pain, nausea, vomiting, diarrhea, and constipation, MS/Extremity: Negative for injury and deformity, Skin: Negative for injury, rash, and discoloration, Neuro: Negative for headache, weakness, numbness, tingling, and seizure. 19:06 Back: Positive for flank pain, on the left. Exam: 19:06 Constitutional: This is a well developed, well nourished patient who is awake, alert, kb and in no acute distress. Head/Face: Normocephalic, atraumatic. Skin: Warm, dry with normal turgor. Normal color with no rashes, no lesions, and no evidence of cellulitis. MS/ Extremity: Pulses equal, no cyanosis. Neurovascular intact. Full, normal range of motion. Neuro: Awake and alert, GCS 15, oriented to person, place, time, and situation. Cranial nerves II-XII grossly intact. Moves all extremities. Sensory grossly intact. Cerebellar exam normal. Normal gait. 19:06 Respiratory: the patient does not display signs of respiratory distress, Respirations: normal. 19:06 Back: CVA tenderness, that is moderate, is noted on the left. Vital Signs: 17:09 Pulse 143; Resp 32; Temp 97.4; Pulse Ox 100% ; Weight 127.01 kg; Height 5 ft. 2 in. ll1 (157.48 cm); Pain 10/10; 17:11 BP 152 / 83; ll1 17:12 Pulse 136; Resp 30; Pulse Ox 100% on R/A; Pain 9/10; ss 19:30 BP 123 / 105; Pulse 133; Resp 23; Pulse Ox 98% on R/A; rv 20:00 BP 117 / 56; Pulse 129; Resp 23; Pulse Ox 97% on R/A; rv 17:09 Body Mass Index 51.21 (127.01 kg, 157.48 cm) ll1 MDM: 17:16 Patient medically screened. kb 19:05 Data reviewed: vital signs, nurses notes. Data interpreted: Pulse oximetry: on room air kb is 100 %. Interpretation: normal. 19:36 ED course: Pt refuses CT scan, requests US. kb 20:37 Counseling: I had a detailed discussion with the patient and/or guardian regarding: the kb historical points, exam findings, and any diagnostic results supporting the discharge/admit diagnosis, lab results, radiology results, the need for outpatient follow up, a urologist, to return to the emergency department if symptoms worsen or persist or if there are any questions or concerns that arise at home. 20:39 ED course: pt is ready to go home. Pt will follow up with her urologist this week. US kb revealed no hydronephrosis, no abnormality of ureter. 05/27 17:14 Order name: Basic Metabolic Panel; Complete Time: 17:49 kb 05/27 17:14 Order name: CBC with Diff; Complete Time: 17:39 kb 05/27 17:57 Order name: Urine Dipstick--Ancillary (enter results) bd 05/27 17:57 Order name: Urine --Ancillary (enter results) bd 05/27 17:58 Order name: Urine Dipstick-Ancillary; Complete Time: 19:35 EDMS 05/27 17:58 Order name: Urine --Ancillary; Complete Time: 19:35 EDMS 05/27 17:34 Order name: US Rp Exam Complete kb 05/27 17:11 Order name: Urine Dipstick-Ancillary (obtain specimen); Complete Time: 17:41 kb 05/27 17:14 Order name: IV Saline Lock; Complete Time: 17:41 kb 05/27 17:14 Order name: Labs collected and sent; Complete Time: 17:41 kb Administered Medications: 17:48 Drug: morphine 4 mg Route: IVP; Site: left antecubital; ss 18:18 Follow up: Response: No adverse reaction; No change in condition ss 17:48 Drug: Zofran (Ondansetron) 4 mg Route: IVP; Site: left antecubital; ss 18:18 Follow up: Response: No adverse reaction; Pain is decreased; Nausea unchanged ss 18:36 Drug: NS 0.9% 1000 ml Route: IV; Rate: 1000 ml; Site: left antecubital; ss 20:43 Follow up: IV Status: Completed infusion; IV Intake: 1000ml rv 18:37 Drug: Dilaudid 1 mg Route: IVP; Infused Over: 30 mins; Site: left antecubital; ss 19:58 Follow up: Response: No adverse reaction; Pain is unchanged, physician notified; RASS: rv Restless (+1) 19:28 Drug: Ativan 1 mg Route: IVP; Site: left antecubital; rv 20:43 Follow up: Response: No adverse reaction rv 19:58 Drug: Dilaudid 1 mg {Note: RASS 1.} Route: IVP; Site: left antecubital; rv 20:43 Follow up: Response: No adverse reaction; Pain is decreased; RASS: Alert and Calm (0) rv Disposition: 05/28 07:01 Co-signature as Attending Physician, Alexandro Bagley MD I agree with the assessment and saeid plan of care. Disposition: 05/27/20 20:38 Discharged to Home. Impression: Left flank pain. - Condition is Stable. - Discharge Instructions: Flank Pain, [id number]. - Prescriptions for Tramadol 50 mg Oral Tablet - take 1 tablet by ORAL route every 8 hours as needed; 12 tablet. - Medication Reconciliation Form, Thank You Letter, Antibiotic Education, Prescription Opioid Use form. - Follow up: Private Physician; When: 2 - 3 days; Reason: Recheck today's complaints, Continuance of care, Re-evaluation by your physician. Follow up: Emergency Department; When: As needed; Reason: Worsening of condition. Signatures: Dispatcher [employer] [facility] Meggan Randhawa, TERRI-Rachelle OBRIENP-Alexandro Almanza MD MD cha Smirch, Shelby, RN RN ss Eduar Mares RN RN rv Carmencita Forman RN RN ll1 Corrections: (The following items were deleted from the chart) 05/27 17:40 17:11 Stone Protocol+CT.RAD.BRZ ordered. [facility] 20:44 20:38 05/27/2020 20:38 Discharged to Home. Impression: Left flank pain. Condition is rv Stable. Forms are Medication Reconciliation Form, Thank You Letter, Antibiotic Education, Prescription Opioid Use. Follow up: Private Physician; When: 2 - 3 days; Reason: Recheck today's complaints, Continuance of care, Re-evaluation by your physician. Follow up: Emergency Department; When: As needed; Reason: Worsening of condition. kb
--- NOTE | 2020-05-27 21:05 | RAD REPORT ---
EXAM DESCRIPTION: US - Renal Ultrasound-Complete - 05/27/2020 8:33 pm CLINICAL HISTORY: PAIN, left side COMPARISON: Renal ultrasound May 02 FINDINGS: The right kidney measures 10.4 x 4.6 x 4.4 cm. The left kidney measures 11.0 x 5.4 x 4.7 cm. Adjusting for differences in image selection in measuring technique, no size change since the Apr ruary study.. Renal cortical thickness and echogenicity are normal. No hydronephrosis or suspicious r enal mass. Punctate hyperechoic focus lower pole left kidney is probably a nonobstructing calculus si milar to comparison. No bladder wall thickening or mass. No intraluminal stone or mass. IMPRESSION: No hydronephrosis or suspicious renal mass. Punctate lower pole left calculus unchanged from comparison. No other significant findings.
[2020-05-28 16:52] VITALS: TEMP 97.4
[2020-05-28 16:57] VITALS: BP 117/56; O2SAT 97
== END 2020-05-27 20:44 | disposition home or self-care (01) ==
LOC: ER 16:59
DX: R10.9 Unspecified abdominal pain (principal); F17.210 Nicotine dependence, cigarettes, uncomplicated; Z88.1 Allergy status to other antibiotic agents; Z88.5 Allergy status to narcotic agent; Z88.8 Allergy status to other drugs, medicaments and biological substances
CPT/HCPCS: 85025; 80048; 36415; 81025; 81003; 76770; J1170 ×2; J7030; J2405; 96361; 96374; 96375; 99284

== ENCOUNTER 2020-06-16 14:47 | Emergency (ER) | payer OTHER ==
--- OUTSIDE RECORDS SUMMARY | 2020-06-16 14:52 | XMS REPORT | Continuity of Care Document ---
:1995 Author Organization [facility] t Address [address] [place] [address] Care Team Providers Name Role Phone Bran GRAINER MACHINE Attending Clinician Doctor Unassigned, Name Attending Clinician Unavailable PASCUAL Attending Clinician Unavailable Payers Payer Name Policy Type Policy Number Effective Date Expiration Date S ource Problems This patient has no known problems. Allergies, Adverse Reactions, Alerts Allergy Allergy Status Severity Reaction(s) Onset Inactive Treating Comm ents Source Name Type Date Date Clinician Unable DA Active U [facility] Assess 00:00: 00 metoclop DA Active U 2019-03 [facility] 00:00: d 00 [facility] doxycycl DA Active MO 2019-03 [facility] ine 03-16 00:00: d 00 [facility] azithrom DA Active MO 2019-03 [facility] ycin 03-16 [facility] 00:00: d 00 [facility] Azithrom Propensi Active Anaphylaxis 2020-0 [place] [facility] ty to 2-16 [facility] adverse 00:00: [...] [facility] ine 2-09 Clear 00:00: Ng 00 [facility] Doxycycl Drug Active [facility] Allergy Breath -[facility] Az[facility]rom Drug Active [facility] Allergy Breath [facility] - [facility]: [facility] 00 [facility] azithrom DA Active SV [facility] ycin 5-09 Clear 00:00: Ng 00 [facility] Social History Social Habit Start Date Stop Date Quantity Comments Source Alcohol intake 2016-04-01 2016-04-01 Current [facility] es - 00:00:00 00:00:00 non-drinker of Medical nter alcohol (finding) Sex Assigned At [birth year] Vu ethodist 00:00:00 00:00:00 Smoking Status Start Date Stop Date Source Current every day smoker 2016-04-01 00:00:00 [facility] Medications Ordered Filled Start Stop Current Ordering Indication Dosage Frequency Signature Comments Components Source Medication Medication Date Date Medication? Clinician (SIG) Name Name ACETAZOLAMI Yes Take by [facility] DE ORAL 04-01 mouth. [facility] - 21:52: Medical [address] [place] [address] Vital Signs Vital Name Observation Time Observation Value Comments Source 02 Sat by Pulse Oximetry 2020-05-07 07:49:50 100 /min Body Mass Index 2020-05-07 07:49:50 49.4 Height 2020-05-07 07:49:50 157.48\\S\\62 Pulse Rate 2020-05-07 07:49:50 87 /min Respiratory Rate 2020-05-07 07:49:50 18 /min Temperature 2020-05-07 07:49:50 37\\S\\98.6 Weight 2020-05-07 07:49:50 287346.939\\S\\4320 Respiratory 2020-05-07 07:49:50 No respiratory distress /min Respiratory 2020-05-05 23:26:04 No respiratory distress /min 02 Sat by Pulse Oximetry 2020-05-05 23:26:04 100 /min Body Mass Index 2020-05-05 23:26:04 49.4 Height 2020-05-05 23:26:04 157.48\\S\\62 Pulse Rate 2020-05-05 23:26:04 87 /min Respiratory Rate 2020-05-05 23:26:04 18 /min Temperature 2020-05-05 23:26:04 37\\S\\98.6 Weight 2020-05-05 23:26:04 006228.939\\S\\4320 Respiratory 2020-05-05 16:38:31 No respiratory distress /min 02 Sat by Pulse Oximetry 2020-05-05 16:38:31 100 /min Body Mass Index 2020-05-05 16:38:31 49.4 Height 2020-05-05 16:38:31 157.48\\S\\62 Pulse Rate 2020-05-05 16:38:31 152 /min Respiratory Rate 2020-05-05 16:38:31 20 /min Temperature 2020-05-05 16:38:31 37.2\\S\\99.0 Weight 2020-05-05 16:38:31 450937.939\\S\\4320 Respiratory 2020-05-05 14:24:00 No respiratory distress /min 02 Sat by Pulse Oximetry 2020-05-05 14:24:00 100 /min Body Mass Index 2020-05-05 14:24:00 49.4 Height 2020-05-05 14:24:00 157.48\\S\\62 Pulse Rate 2020-05-05 14:24:00 152 /min Respiratory Rate 2020-05-05 14:24:00 20 /min Temperature 2020-05-05 14:24:00 37.2\\S\\99.0 Weight 2020-05-05 14:24:00 766019.939\\S\\4320 02 Sat by Pulse Oximetry 2020-05-05 13:30:25 100 /min Body Mass Index 2020-05-05 13:30:25 49.4 Height 2020-05-05 13:30:25 157.48\\S\\62 Pulse Rate 2020-05-05 13:30:25 152 /min Respiratory Rate 2020-05-05 13:30:25 20 /min Temperature 2020-05-05 13:30:25 37.2\\S\\99.0 Weight 2020-05-05 13:30:25 473408.939\\S\\4320 02 Sat by Pulse Oximetry 2020-05-05 13:17:41 100 /min Body Mass Index 2020-05-05 13:17:41 49.4 Height 2020-05-05 13:17:41 157.48\\S\\62 Pulse Rate 2020-05-05 13:17:41 152 /min Respiratory Rate 2020-05-05 13:17:41 20 /min Temperature 2020-05-05 13:17:41 37.2\\S\\99.0 Weight 2020-05-05 13:17:41 850082.939\\S\\4320 02 Sat by Pulse Oximetry 2020-05-05 13:15:39 100 /min Body Mass Index 2020-05-05 13:15:39 49.4 Height 2020-05-05 13:15:39 157.48\\S\\62 Pulse Rate 2020-05-05 13:15:39 152 /min Respiratory Rate 2020-05-05 13:15:39 20 /min Temperature 2020-05-05 13:15:39 37.2\\S\\99.0 Weight 2020-05-05 13:15:39 958543.939\\S\\4320 WEIGHT 2020-05-05 13:11:00 122.839142 kg HEIGHT 2020-05-05 13:11:00 157.48 cm Procedures This patient has no known procedures. Plan of Care Planned Activity Planned Date Details Comments Source Future Scheduled 2019-10-15 INFLUENZA VACCINE Sanaz barba [facility] Test 00:00:00 [code = INFLUENZA VACCINE] Future Scheduled 2016-09-06 Screening for Vu Ok [facility]odist Test 00:00:00 malignant neoplasm of cervix (procedure) [code = 891436084] Future Scheduled 2013-09-06 Hepatitis C Vu Met hodist Test 00:00:00 screening (procedure) [code = 796294015] Future Scheduled 2011 CHLAMYDIA SCREENING Jacky jose [facility] Test 00:00:00 [code = CHLAMYDIA SCREENING] Future Scheduled 2011 COVID-19 VACCINE (1) Mckay shaver [facility] Test 00:00:00 [code = COVID-19 VACCINE (1)] Encounters Start End Encounter Admission Attending Care Care Encounter Source Date/Time Date/Time Type Type Clinicians Facility Department ID 2020-04-27 2020-04-27 Emergency Bran, [facility] [id number] 20:41:00 23:12:00 Mary Fischer 350.1.13.10 [place] 4.2.7.2.686 [place] [id number] 2020-04-27 2020-04-27 Orders Doctor COLE 1.2.840.114 [id number] 00:00:00 00:00:00 Only Unassigned, KEVYN 350.1.13.10 [place] [facility] 4.2.7.2.686 [id number] 2019-05-01 2019-05-01 Emergency [place], [facility] [id number] [place] 00:00:00 00:00:00 [place] [address] Results Test Description Test Time Test Comments Results Result Comments Source LACTIC ACID 2020-04-25 02:52:00 Test Item Value Reference Range Interpretation Comme nts LACTIC ACID (test code = LACT) 1.0 mmol/L 0.7-2.0 N COMPREHENSIVE METABOLIC [id number] 02:28:00 Test Item Value Reference Range Interpretation [...] = ALKP) UA RFLX MICR CULT IF [id number] 01:22:00 Test Item Value Reference Range Interpretation [...] URINE: CLEAN CATCHUA RFLX MICR CULT IF [id number] 01:19:00 Test Item Value Reference Range Interpretation [...] PH DIPSTICK (test 5.0 5.0-8.0 code = GO) UA PROTEIN DIPSTICK 30 (1+) mg/dL Negative [...] code = LACT) toFirst Name: I7767 Last Name:[facility] READ BACK AND [place] Love CBasiaLAB.MG, on , @ 0052. [id number] 00:50:00 Test Item Value Reference Range Interpretation Comments LIPASE (test code = LIP) 54 U/L 23-300 N CBC W/AUTO [id number] 00:49:00 Test Item Value Reference Range Interpretation [...] BA#) 0.04 x10 3/uL 0.0-0.1 N - RETRO [id number] 00:16:00 [facility] WOODName: NATIVIDAD GREGG : 1995 Sex: F [place]: St: REG Name: NATIVIDAD GREGG : 1995 Age/S: 24/F [address] Unit #: [id number] Loc: [place] [address] Phys: Luis Goddard NP Acct: [id number] Dis Date: Status: REG ER PHONE #: [phone] Exam Date: 04/24/2020 0005 FAX #: [phone] Reason: left flank pain EXAMS: CPT CODE: [id number] US RETRO LTD 88078 EXAM: - US RETRO LTD LOCATION: H57 HISTORY: 24 years-year old Female with left [...] Leonel Delacruz MD CC: Technologist: Francine Jimenez [facility] RVT Trnscrd Date/Time/By: 04/25/2020 (0016) : By: carrie [email or web address] PAGE 1 Signed Report [place]: St: REG Name: NATIVIDAD GREGG : 1995 Age/S: 24/F [address] Unit #: [id number] Loc: [place] [address] Phys: Luis Goddard 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 Acct: [id number] Dis Date: Status: REG ER PHONE #: [phone] Exam Date: 04/24/2020 0005 FAX #: [phone] Reason: left flank pain EXAMS: CPT CODE: [id number] US RETRO LTD 86649 <Continued> Orig Print D/T: S: 04/25/2020 (0019) PAGE 2 Signed ReportCOVID 19 INHOUSE [id number] 21:16:00 Test Item Value Reference Range Interpretation Comments COVID 19 INHOUSE AG NEGATIVE Negative Per manu facturer, (test code = negative result s should [id number]) be treated aspr esumptive and, if inconsi [...] nsistent with COVID-19. - XR CHEST 1 [id number] 20:44:00 [facility] 1995 Sex: F Name: NATIVIDAD GREGG [facility] : 1995 Age/S: 24 / F [address] [place] Unit #: [id number] Loc: [place] [address] Phys: Anita Kruse MD Acct: [id number] Dis Date: Status: REG ER PHONE #: [phone] Exam Date: 01/18/20202023 FAX #: Reason: Code Sepsis EXAMS: CPT: [id number] XR CHEST 1 V 10977 Fluoro Time: DAP (Gy m2): Air Kerma [...] for acute infiltrates or e ffusions. at 2043 Reported and signed by: Twan Evans M.D. CC: Anita Kruse MD PAGE 1 Signed Report Name: NATIVIDAD GREGG [facility] : 1995 Age/S: 24 / F [address] [place] [place] Unit #: [id number] Loc: [place] [address] Phys: Anita Kruse MD Acct: [id number] Dis Date: Status: REG ER PHONE #: [phone] Exam Date: 01/18/20202023 FAX #: Reason: Code Sepsis EXAMS: CPT: [id number] XR CHEST 1 V 45084 Fluoro Time: DAP (Gy m2): Air Kerma (mGy): <Continued> Technologist: Brandi Clark RT(R)(CT) Trnscb Date/Time: 01/18/2020 (2043) [id number] Orig Print D/T: S: 01/18/2020 (2047) PAGE 2 Signed ReportUA RFLX MICR CULT IF [id number] 20:17:00 Test Item Value Reference Range Interpretation [...] UACULT) Indication for culture: Suprapubic PainBASIC METABOLIC [id number] 20:13:00 Test Item Value Reference Range Interpretation [...] 8.5-10.1 N Completed by Nursing: NOHEPATIC FUNCTION [id number] 20:13:00 Test Item Value Reference Range Interpretation [...] N code = ALKP) Completed by Nursing: [id number] 20:13:00 Test Item Value Reference Range Interpretation [...] jesse yby method. Completed by Nursing: NOLACTIC [id number] 20:13:00 Test Item Value Reference Range Interpretation Comments LACTIC ACID (test code = LACT) 1.8 mmol/L 0.4-2.0 N CBC W/AUTO [id number] 19:57:00 Test Item Value Reference Range Interpretation [...] NO DIFF/SCN CRITERIA = MDIFF) BASIC METABOLIC [id number] 07:22:00 Test Item Value Reference Range Interpretation [...] 8.7 mg/dL 8.4-10.2 N CA) CBC W/AUTO [id number] 07:03:00 Test Item Value Reference Range Interpretation [...] 0.05 x10 3/uL 0.0-0.1 N BASIC METABOLIC [id number] 05:56:00 Test Item Value Reference Range Interpretation [...] 8.4 mg/dL 8.4-10.2 N CA) CBC W/AUTO [id number] 05:42:00 Test Item Value Reference Range Interpretation [...] *LDL Cholesterol<1 00mg/ dL: Desirable L DL-C digwnogznqztu56 0-159 mg/dL: Borderli ne High Risk LDL-C vmraslyayqepo04 0-189 mg/dL: High ris k LDL-C concentra [...] AVG 11.04~~~~~~~~~~ ~~~~~~~ ~~~~~~~~~~~~~~~ ~~~~~~~ ~~~~~~~~~~~~~~~ ~~~~~~N ational Cholest shubham Education (NCEP ) Guidelines:~~~~ ~~~~~~~ ~~~~~~~~~~~~~~~ ~~~~~~~ ~~~~~~~~~~~~~~~ ~~~~~~~ ~~~~~ HDL Cholesterol<4 0mg/dL: HDL Cholesterol (Major risk factor for CHD)>60mg/dL: H DL Cholesterol (Ne gative risk factor for CHD)40-59mg/dL: Borderline Risk L DL Cholesterol<1 00mg/dL : Desirable LDL -C wqebftfxriprr72 0-159mg /dL: Borderline High Risk LDL-C bhfjygrjjeqkj53 0-189mg /dL: High risk LDL-C concentration H DL-LDL Cholesterol is affected by a n umber of factors such as smoking, age an d sex.~~~~~~~~~~~ ~~~~~~~ ~~~~~~~~~~~~~~~ ~~~~~~~ ~~~~~~~~~~~~~~~ ~~~~~ LACTIC [id number] 17:52:00 Test Item Value Reference Range Interpretation Comments LACTIC ACID (test code = LACT) 1.6 mmol/L 0.7-2.0 N Coronavirus 2019 nCoV [id number] 17:03:00 Test Item Value Reference Range Interpretation Comments Coronavirus 2018 Negative NEGATIVE This test h as been nCoV Bedside (test authorize d by FDA under code = [id number]) an EUA for use byauthorized laboratories; This [...] and/o r diagnosis of CO VID-19 under Zlssonm61 4(b)(1) of the Act, 21 U.S .C. 360bbb-3(b)(1), unless theauthorizatio n is terminated or r evoked sooner. LACTIC [id number] 16:44:00 Test Item Value Reference Range Interpretation Comments LACTIC ACID (test 2.1 mmol/L 0.7-2.0 HH Critical V alue reported code = LACT) toFirst Name:UTE D6486 Last Name:CHEL JUNG READ BACK AND [facility] ShuklaLAB.LAS1, on 01/15/20, @ 164 4. UA RFLX MICR CULT IF [id number] 16:42:00 Test Item Value Reference Range Interpretation [...] for culture: Dysuria/FrequencySOURCE OF URINE: CLEAN CATCHLACTIC [id number] 15:54:00 Test Item Value Reference Range Interpretation Comments LACTIC ACID (test 2.6 mmol/L 0.7-2.0 HH Critical V alue reported code = LACT) toFirst Name:MO I8356 Last Name:[facility] FABIANA READ BACK AND [employer] ShuklaLAB.LAS1, on 01/15/20, @ 155 4. BASIC METABOLIC [id number] 15:50:00 Test Item Value Reference Range Interpretation [...] 9.6 mg/dL 8.4-10.2 N CA) LIVER FUNCTION [id number] 15:50:00 Test Item Value Reference Range Interpretation [...] U/L 38-126 N (test code = ALKP) [id number] 15:50:00 Test Item Value Reference Range Interpretation Comments LIPASE (test code = LIP) 47 U/L 23-300 N PROTHROMBIN [id number] 15:50:00 Test Item Value Reference Range Interpretation [...] - 3.0 Atrial fibrillation 2.0 - 3.03. Automobile Relocation Engineer al prosthetic valv es (high risk) 2.5 - 3.5 * If oral anticoagulant t herapy is elected to preventrecurren t myocardial infa rction, an INR of 2.5-3 .5 isrecommended, consistent with Food and Drug Administrationr ecommen dations. THROMBOPLASTIN TIME [id number] 15:50:00 Test Item Value Reference Range Interpretation Comments THROMBOPLASTIN TIME 31.8 SECONDS 23.4-37.0 N Therap eutic Range PARTIAL (test code = for Hep katherine PTT) EFFECTIVE Heparin IU/mL aPT T Seconds0.3 64.30.7 88.8 BASIC METABOLIC [id number] 15:49:00 Test Item Value Reference Range Interpretation [...] 9.6 mg/dL 8.4-10.2 N CA) LIVER FUNCTION [id number] 15:49:00 Test Item Value Reference Range Interpretation [...] U/L 38-126 N (test code = ALKP) [id number] 15:49:00 Test Item Value Reference Range Interpretation Comments LIPASE (test code = LIP) U/L 23-300 CBC W/AUTO [id number] 15:30:00 Test Item Value Reference Range Interpretation [...] 3/uL 0.0-0.1 N - XR CHEST 1 [id number] 15:03:00 [facility] : 1995 Sex: F [place]: [address] St: DIS Name: NATIVIDAD GREGG [facility] : 1995 Age/S: 24/F [address] Unit #: [id number] Loc: [address] [place] [address] Phys: Victorino Schofield Acct: [id number] Dis Date: [id number] Status: DIS IN PHONE #: [phone] Exam Date: 01/15/2020 9086 FAX #: [phone] Reason: CODE SEPSIS EXAMS: CPT CODE: [id number] XR CHEST 1 V 05725 EXAM: Portable chest x-ray, one view INDICATION: [...] thickening suggest bronchitis and/or viral pneumonitis. at 1509 Reported and signed by: Mu Vallejo M.D. CC: Technologist: HARJEET CASE; STUDENT 2ND YEAR Trninrd Date/Time/By: 01/15/2020 (7511) : By: Jaydon PAGE 1 Signed Report [place]: St: DIS Name: NATIVIDAD GREGG [facility] : 1995 Age/S: 24/F [address] Unit #: [id number] Loc: [address] [place] [address] Phys: Maosn Schofield Acct: [id number] Dis Date: [id number] Status: DIS IN PHONE #: [phone] Exam Date: 01/15/2020 0238 FAX #: [phone] Reason: CODE SEPSIS EXAMS: CPT CODE: [id number] XR CHEST 1 V 15639 <Continued> Orig Print D/T: S: 01/15/2020 (2827) PAGE 2 Signed Report- XR CHEST 1 [id number] [facility]:03[facility] : 1995 Sex: F [place]: St: PRE Name: NATIVIDAD GREGG [facility] : 1995 Age/S: 24/F [address] Unit #: [id number] Loc: [place] [address] Phys: Victorino Schofield Acct: [id number] Dis Date: Status: PRE ER PHONE #: [phone] Exam Date: 01/15/2020 1450 FAX #: [phone] Reason: CODE SEPSIS EXAMS: CPT CODE: [id number] XR CHEST 1 V 89266 EXAM: Portable chest x-ray, one view INDICATION: [...] CC: Technologist: MANPREET COSBY; STUDENT 2ND YEAR [facility] Date/Time/By: 01/15/2020 (1503) : By: Jaydon PAGE 1 Signed Report [place]: St: PRE Name: NATIVIDAD GREGG [facility] : 1995 Age/S: 24/F [address] Unit #: [id number] Loc: [place] [address] Phys: Mason Schofield Acct: [id number] Dis Date: Status: PRE ER PHONE #: [phone] Exam Date: 01/15/2020 1450 FAX #: [phone] Reason: CODE SEPSIS EXAMS: CPT CODE: [id number] XR CHEST 1 V 12879 <Continued> Orig Print D/T: S: 01/15/2020 (1506) PAGE 2 Signed ReportLACTIC [id number] 01:50:00 Test Item Value Reference Range Interpretation Comments LACTIC ACID (test code = LACT) 1.2 mmol/L 0.7-2.0 N COMPREHENSIVE METABOLIC [id number] 00:45:00 Test Item Value Reference Range Interpretation [...] N (test code = ALKP) HCG SERUM [id number] 00:45:00 Test Item Value Reference Range Interpretation Comments HCG SERUM QUAL (test code = HCGQL) NEGATIVE NEGATIVE LACTIC [id number] 00:13:00 Test Item Value Reference Range Interpretation Comments LACTIC ACID (test 2.3 mmol/L 0.7-2.0 HH Critical V alue reported code = LACT) toFirst Name:AYAN K9646 Last Name:CHEL JUNG READ BACK [employer] Love C.LAB.WR, on , @ 0013. UA RFLX MICR CULT IF [id number] 00:06:00 Test Item Value Reference Range Interpretation [...] Dysuria/FrequencySOURCE OF URINE: CLEAN CATCH COMPREHENSIVE METABOLIC [id number] 23:43:00 Test Item Value Reference Range Interpretation [...] N (test code = ALKP) HCG SERUM [id number] 23:43:00 Test Item Value Reference Range Interpretation Comments HCG SERUM QUAL (test code = HCGQL) NEGATIVE CBC W/AUTO [id number] 23:38:00 Test Item Value Reference Range Interpretation [...] BA#) 0.06 x10 3/uL 0.0-0.1 N LACTIC [id number] 19:19:00 Test Item Value Reference Range Interpretation Comments LACTIC ACID (test code = LACT) 1.6 mmol/L 0.7-2.0 N UA RFLX MICR CULT IF [id number] 18:41:00 Test Item Value Reference Range Interpretation [...] Flank PainSOURCE OF URINE: CLEAN CATCHBASIC METABOLIC [id number] 18:39:00 Test Item Value Reference Range Interpretation [...] 10.0 mg/dL 8.4-10.2 N CA) LIVER FUNCTION [id number] 18:39:00 Test Item Value Reference Range Interpretation [...] U/L 38-126 N (test code = ALKP) [id number] 18:39:00 Test Item Value Reference Range Interpretation Comments LIPASE (test code = LIP) 81 U/L 23-300 N BASIC METABOLIC [id number] 18:37:00 Test Item Value Reference Range Interpretation [...] 10.0 mg/dL 8.4-10.2 N CA) LIVER FUNCTION [id number] 18:37:00 Test Item Value Reference Range Interpretation [...] U/L 38-126 N (test code = ALKP) [id number] 18:37:00 Test Item Value Reference Range Interpretation Comments LIPASE (test code = LIP) U/L 23-300 - CT ABD PELVIS W/O [id number] 18:36:00 [facility] : 1995 Sex: F FAX: Mayelin Santos [phone] [place]: St: PRE Name: NATIVIDAD GREGG [facility] Randy : 1995 Age/S: 24/F [address] Unit: [id number] Loc: [place] [address] Phys: Mayelin Tyler [employer]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 Acct: [id number] Dis Date: Status: PRE ER PHONE #: [phone] Exam Date: 01/13/2020 1820 FAX #: [phone] Reason: flank pain EXAMS: CPT CODE: [id number] CT ABD PELVIS W/O CONT 60722 Examination: Abdomen and pelvic CT without contrast [...] 1 Signed Report (CONTINUED) FAX: Mayelin Santos [phone] [place]: St: PRE--------- Name: NATIVIDAD GREGG : 1995 Age/S: 24/F [address] Unit: [id number] Loc: [place] [address] Phys: Mayelin Mesa NP Acct: [id number] Dis Date: Status: PRE ER PHONE #: [phone] Exam Date: 01/13/2020 1820 FAX #: [phone] Reason: flank pain EXAMS: CPT CODE: [id number] CT ABD PELVIS W/O CONT 70507 <Continued> CC: Mayelin Tyler NP Technologist: Rosa Savage Trnscrd Dt/Tm: 01/13/2020 (1835) MistyJH12 Orig Print D/T: S: 01/13/2020 (9 PAGE [...] Flank PainSOURCE OF URINE: CLEAN CATCHCBC W/AUTO [id number] 18:19:00 Test Item Value Reference Range Interpretation [...]
[2020-06-16 15:08] LABS: Urine Blood 2+ (Negative); Urine Glucose Negative (Negative); Urine Protein 1+ (Negative); Urine Specific Gravity >=1.030 (1.005-1.030); Urine pH 5.5 (5.0-7.0)
[2020-06-16 15:41] LABS: Absolute Lymphocytes (CBC) 3.1 K/uL (0.7-4.9); Basophils % 0.9 % (0-1.3); Hematocrit 30.3 % (36.0-45.0); Lymphocytes % 29.4 % (15.3-44.8); MPV 7.9 fL (7.6-11.3); RBC Red Blood Cell Count 3.73 M/uL (3.86-4.86)
[2020-06-16] MEDS ORDERED: NA CHLORIDE 0.9% 1,000 ML ONE ×2 (15:49→17:59)
[2020-06-16] MEDS ORDERED: MORPHINE 4 MG/ML SYR ONE (15:49)
[2020-06-16] MEDS ORDERED: ONDANSETRON 4 MG/2 ML VIAL ONE (15:49)
[2020-06-16 15:59] LABS: ALT/SGPT 22 U/L (12-78); AST/SGOT 16 U/L (15-37); Albumin 4.1 g/dL (3.4-5.0); Alkaline Phosphatase 93 U/L (45-117); BUN Blood Urea Nitrogen 11 mg/dL (7-18); Bicarbonate 23 mmol/L (21-32); Bilirubin Direct < 0.1 mg/dL (0-0.2); Bilirubin Total 0.2 mg/dL (0.2-1.0); Glucose Level 90 mg/dL (74-106); Lipase 75 U/L (73-393); Potassium 3.7 mmol/L (3.5-5.1); Protein, Total 7.8 g/dL (6.4-8.2); Sodium Level 139 mmol/L (136-145)
[2020-06-16 16:01] LABS: Calcium Oxalate Crystals- Ur MANY (NONE SEEN); Urine Bacteria <20 /HPF (<20); Urine RBC <5 /HPF (NONE SEEN)
[2020-06-16] MEDS ORDERED: PROMETHAZINE INJ 25 MG/ML AMP ONE (16:44)
[2020-06-16] MEDS ORDERED: HYDROMORPHONE HCL 1 MG/ML INJ ONE ×2 (16:45→18:21)
--- NOTE | 2020-06-16 17:21 | RAD REPORT ---
EXAM DESCRIPTION: US - Renal Ultrasound-Complete - 06/16/2020 4:18 pm CLINICAL HISTORY: Left flank pain COMPARISON: May 27, 2020 FINDINGS: The right kidney measures 10 cm with a normal echotexture. The left kidney measures 11 cm with a normal echotexture. Tiny calculi suspected Hydronephrosis is not seen. Bladder is decompressed and poorly seen. IMPRESSION: Tiny nonobstructing left renal calculi suspected
--- NOTE | 2020-06-16 18:08 | ER ---
Nurse's Notes [facility] [place] Name: Ana Lilia Kline Age: 24 yrs Sex: Female : 1995 Arrival Date: 06/16/2020 Time: 14:48 Bed 19 Private MD: Diagnosis: Left flank pain Presentation: 06/16 14:50 Chief complaint: Patient states: Diagnosed with 4mm kidney stone on th L ureter. 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 HR high. Coronavirus screen: Client denies travel out of the [place] in the last 14 days. At this time, the client does not indicate any symptoms associated with coronavirus-19. Ebola Screen: Patient negative for fever greater than or equal to 101.5 degrees Fahrenheit, and additional compatible Ebola Virus Disease symptoms Patient denies exposure to infectious person. Patient denies travel to an Ebola-affected area in the 21 days before illness onset. No symptoms or risks identified at this time. Initial Sepsis Screen: Does the patient meet any 2 criteria? No. Patient's initial sepsis screen is negative. Does the patient have a suspected source of infection? No. Patient's initial sepsis screen is negative. Risk Assessment: Do you want to hurt yourself or someone else? Patient reports no desire to harm self or others. Onset of symptoms was June 16, 2020. 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 - Social history:: Smoking status: Patient reports the use of cigarette tobacco products, smokes one-half pack cigarettes per day. Screenin:20 Abuse screen: Denies threats or abuse. Denies injuries from another. Nutritional zb screening: No deficits noted. Tuberculosis screening: No symptoms or risk factors identified. Fall Risk None identified. Assessment: 16:07 Reassessment: US at bedside. General: Appears uncomfortable, Behavior is anxious. Pain: zb Complains of pain in left low back Pain currently is 10 out of 10 on a pain scale. Quality of pain is described as aching, sharp, Noted to be grimacing, moaning. Neuro: Level of Consciousness is awake, alert, obeys commands, Oriented to person, place, time, situation. Cardiovascular: Capillary refill < 3 seconds Patient's skin is warm and dry. Respiratory: Airway is patent Respiratory effort is even, unlabored, Respiratory pattern is regular, symmetrical. GI: Abdomen is flat, Bowel sounds present X 4 quads. Reports Left flank pain. : Derm: Skin is intact, is healthy with good turgor, Skin is dry, Skin is normal. Musculoskeletal: Range of motion: intact in all extremities. 17:20 Reassessment: Patient appears in no apparent distress at this time. Patient and/or zb family updated on plan of care and expected duration. Pain level reassessed. Patient is alert, oriented x 3, equal unlabored respirations, skin warm/dry/pink. patient given pain medication rated pain at 7/10 from 12/23. 18:00 Reassessment: pt c/o of pain. notified ecp medication ordered. zb 18:22 Reassessment: patient d/c gait steady and even. zb Vital Signs: 14:50 BP 173 / 129; Pulse 139; Resp 16 S; Pulse Ox 100% on R/A; Weight 127.01 kg (R); Height ca1 5 ft. 2 in. (157.48 cm) (R); Pain 10/10; 15:00 BP 128 / 86; Pulse 94; Resp 18; Pulse Ox 100% on R/A; zb 16:18 BP 155 / 106; Pulse 120; Resp 20; Pulse Ox 98% on R/A; zb 16:20 BP 117 / 97; Pulse 118; Resp 18; Pulse Ox 100% on R/A; zb 18:14 BP 104 / 61; Pulse 98; Resp 16; Pulse Ox 99% on R/A; zb 14:50 Body Mass Index 51.21 (127.01 kg, 157.48 cm) ca1 ED Course: 14:48 Patient arrived in ED. am2 14:51 Triage completed. ca1 14:52 Arm band placed on right wrist. ca1 14:53 Srikanth Barrera NP is PHCP. pm1 14:53 Bety Hunter MD is Attending Physician. pm1 15:22 Allyson Martinez RN is Primary Nurse. zb 15:31 Inserted saline lock: 20 gauge in right antecubital area, using aseptic technique. dh4 Blood collected. 16:17 US Rp Exam Complete In Process Unspecified. EDMS 18:16 Patient has correct armband on for positive identification. Bed in low position. Call zb light in reach. Side rails up X 1. Pulse ox on. NIBP on. Door closed. Noise minimized. 18:21 No provider procedures requiring assistance completed. IV discontinued, intact, zb bleeding controlled, No redness/swelling at site. Pressure dressing applied. Administered Medications: 15:47 Drug: morphine 4 mg Route: IVP; Site: right antecubital; zb 16:00 Follow up: Response: No adverse reaction; Marked relief of symptoms; Pain is decreased zb 15:47 Drug: Zofran (Ondansetron) 4 mg Route: IVP; Site: right antecubital; zb 16:00 Follow up: Response: No adverse reaction; Marked relief of symptoms zb 15:47 Drug: NS 0.9% 1000 ml Route: IV; Rate: 1000 ml; Site: right antecubital; zb 18:13 Follow up: Response: No adverse reaction; IV Status: Completed infusion; IV Intake: zb 1000ml 16:40 Drug: Phenergan 25 mg Route: IVP; Site: right antecubital; zb 17:20 Follow up: Response: No adverse reaction; Marked relief of symptoms zb 16:40 Drug: Dilaudid (HYDROmorphone) 1 mg {Note: RASS +1.} Route: IVP; Site: right zb antecubital; 18:14 Follow up: Response: No adverse reaction; No change in condition; Pain is decreased zb 16:40 Drug: NS 0.9% 1000 ml Route: IV; Rate: 1000 ml; Site: right antecubital; zb 17:20 Follow up: Response: No adverse reaction; IV Status: Completed infusion; IV Intake: zb 1000ml 18:09 Drug: Dilaudid (HYDROmorphone) 1 mg {Note: RASS +1.} Route: IVP; Site: right zb antecubital; 18:14 Follow up: Response: No adverse reaction; Pain is decreased zb Intake: 17:20 IV: 1000ml; Total: 1000ml. zb 18:13 IV: 1000ml; Total: 2000ml. zb Outcome: 18:08 Discharge ordered by . pm1 18:22 Discharged to home ambulatory. zb 18:22 Condition: stable 18:22 Discharge instructions given to patient, Instructed on discharge instructions, follow up and referral plans. medication usage, Demonstrated understanding of instructions, follow-up care, medications, Prescriptions given X 2. 18:32 Patient left the ED. zb Signatures: Dispatcher [employer] EDMS Srikanth Barrera NP [employer] pm1 Nataliia Vargas 2 Hellen Ortiz RN RN [facility] Shashi Manzanares 4 Allyson Martinez RN RN zb Corrections: (The following items were deleted from the chart) 18:13 16:40 Dilaudid (HYDROmorphone) 1 mg IVP in right antecubital zb zb 18:13 18:12 Response: No adverse reaction; IV Status: Completed infusion; IV Intake: 1000ml zbzb
--- NOTE | 2020-06-16 18:08 | EDPHYS ---
Physician Documentation [facility] Name: Ana Lilia Kline Age: 24 yrs Sex: Female : 1995 Arrival Date: 06/16/2020 Time: 14:48 Bed 19 Private MD: ED Physician Bety Hunter HPI: 06/16 15:06 This 24 yrs old Female presents to ER via Ambulatory with complaints of Flank pm1 Pain. 15:06 The patient complains of pain in the left low back. The pain does not radiate. Onset: pm1 The symptoms/episode began/occurred 2 day(s) ago. Modifying factors: The symptoms are alleviated by nothing. the symptoms are aggravated by nothing. Associated signs and symptoms: Pertinent positives: nausea, Pertinent negatives: diarrhea, dysuria, fever, vomiting. Severity of pain: in the emergency department the pain is actually worse. The patient has experienced similar episodes in the past, multiple times. Reports diagnosis of 4 mm stone in left kidney in an [place], [place] ER. Discharged home with Keflex. Took two days of Keflex and followed up with her PCP who gave her Rocephin IM and discontinued keflex. 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 - Social history:: Smoking status: Patient reports the use of cigarette tobacco products, smokes one-half pack cigarettes per day. ROS: 15:06 Constitutional: Negative for fever, chills, and weight loss, Neck: Negative for injury, pm1 pain, and swelling, Cardiovascular: Negative for chest pain, palpitations, and edema, Respiratory: Negative for shortness of breath, cough, wheezing, and pleuritic chest pain. 15:06 Abdomen/GI: Negative for abdominal pain, nausea, vomiting, diarrhea, and constipation. 15:06 : Negative for injury, bleeding, discharge, and swelling, MS/Extremity: Negative for injury and deformity, Skin: Negative for injury, rash, and discoloration, Neuro: Negative for headache, weakness, numbness, tingling, and seizure. 15:06 Back: Positive for flank pain, on the left. Exam: 15:06 Constitutional: This is a well developed, well nourished patient who is awake, alert, pm1 and in no acute distress. Head/Face: Normocephalic, atraumatic. 15:06 Skin: Warm, dry with normal turgor. Normal color with no rashes, no lesions, and no evidence of cellulitis. MS/ Extremity: Pulses equal, no cyanosis. Neurovascular intact. Full, normal range of motion. 15:06 Cardiovascular: Exam negative for acute changes, Rate: normal, Rhythm: regular, Pulses: no pulse deficits are appreciated. 15:06 Respiratory: Exam negative for acute changes, respiratory distress, shortness of breath. 15:06 Abdomen/GI: Exam negative for acute changes, Inspection: abdomen appears normal, Palpation: abdomen is soft and non-tender, in all quadrants. 15:06 Back: pain, that is mild, of the left low back, normal spinal alignment noted. 15:06 Neuro: Exam negative for acute changes, Orientation: is normal, Mentation: is normal, Motor: is normal, moves all fours. Vital Signs: 14:50 BP 173 / 129; Pulse 139; Resp 16 S; Pulse Ox 100% on R/A; Weight 127.01 kg (R); Height ca1 5 ft. 2 in. (157.48 cm) (R); Pain 10/10; 15:00 BP 128 / 86; Pulse 94; Resp 18; Pulse Ox 100% on R/A; zb 16:18 BP 155 / 106; Pulse 120; Resp 20; Pulse Ox 98% on R/A; zb 16:20 BP 117 / 97; Pulse 118; Resp 18; Pulse Ox 100% on R/A; zb 18:14 BP 104 / 61; Pulse 98; Resp 16; Pulse Ox 99% on R/A; zb 14:50 Body Mass Index 51.21 (127.01 kg, 157.48 cm) ca1 MDM: 14:58 Patient medically screened. pm1 15:17 Refusal of service: The patient/guardian displays adequate decision making capability pm1 and despite a detailed discussion of alternatives, benefits, risks, and consequences refuses: CT Scan, Patient would like an U/S instead of CT scan. 16:18 ED course: U/S no hydronephrosis present, therefore no obstruction present. No UTI pm1 present. Caox present in urine. Will discharge patient home to follow up with urology. 16:19 Data reviewed: vital signs. Data interpreted: Pulse oximetry: on room air is 100 %. pm1 Interpretation: normal. 17:55 Counseling: I had a detailed discussion with the patient and/or guardian regarding: the pm1 historical points, exam findings, and any diagnostic results supporting the discharge/admit diagnosis, lab results, radiology results, the need for outpatient follow up, a urologist, to return to the emergency department if symptoms worsen or persist or if there are any questions or concerns that arise at home. 17:58 ED course: PMPaware reviewed. Patient last prescribed tramadol on 06/04/20 - 7 day pm1 supply. 06/16 15:01 Order name: Basic Metabolic Panel; Complete Time: 16:01 pm1 06/16 15:01 Order name: CBC with Diff; Complete Time: 15:55 pm1 06/16 15:01 Order name: Hepatic Function; Complete Time: 16:01 pm1 06/16 15:01 Order name: Lipase; Complete Time: 16:01 pm1 06/16 15:01 Order name: Urine Microscopic Only; Complete Time: 16:05 pm1 06/16 15:07 Order name: Urine Dipstick-Ancillary; Complete Time: 15:16 EDTX 06/16 15:11 Order name: Urine --Ancillary (enter results) 06/16 15:12 Order name: Urine --Ancillary [facility] 06/16 15:20 Order name: US Rp Exam Complete; Complete Time: 17:54 pm1 06/16 15:01 Order name: IV Saline Lock; Complete Time: 15:30 pm1 06/16 15:01 Order name: Labs collected and sent; Complete Time: 15:30 pm1 06/16 15:01 Order name: Urine Dipstick-Ancillary (obtain specimen); Complete Time: 15:23 pm1 06/16 15:01 Order name: Urine Test (obtain specimen); Complete Time: 15:31 pm1 Administered Medications: 15:47 Drug: morphine 4 mg Route: IVP; Site: right antecubital; zb 16:00 Follow up: Response: No adverse reaction; Marked relief of symptoms; Pain is decreased zb 15:47 Drug: Zofran (Ondansetron) 4 mg Route: IVP; Site: right antecubital; zb 16:00 Follow up: Response: No adverse reaction; Marked relief of symptoms zb 15:47 Drug: NS 0.9% 1000 ml Route: IV; Rate: 1000 ml; Site: right antecubital; zb 18:13 Follow up: Response: No adverse reaction; IV Status: Completed infusion; IV Intake: zb 1000ml 16:40 Drug: Phenergan 25 mg Route: IVP; Site: right antecubital; zb 17:20 Follow up: Response: No adverse reaction; Marked relief of symptoms zb 16:40 Drug: Dilaudid (HYDROmorphone) 1 mg {Note: RASS +1.} Route: IVP; Site: right zb antecubital; 18:14 Follow up: Response: No adverse reaction; No change in condition; Pain is decreased zb 16:40 Drug: NS 0.9% 1000 ml Route: IV; Rate: 1000 ml; Site: right antecubital; zb 17:20 Follow up: Response: No adverse reaction; IV Status: Completed infusion; IV Intake: zb 1000ml 18:09 Drug: Dilaudid (HYDROmorphone) 1 mg {Note: RASS +1.} Route: IVP; Site: right zb antecubital; 18:14 Follow up: Response: No adverse reaction; Pain is decreased zb Disposition: 06/16/20 18:08 Discharged to Home. Impression: Left flank pain. - Condition is Stable. - Discharge Instructions: Flank Pain, Adult. - Prescriptions for Tramadol 50 mg Oral Tablet - take 1 tablet by ORAL route every 8 hours as needed; 12 tablet. promethazine 25 mg Oral Tablet - take 1 tablet by ORAL route every 6 hours As needed; 20 tablet. - Medication Reconciliation Form, Thank You Letter, Antibiotic Education, Prescription Opioid Use form. - Follow up: Emergency Department; When: As needed; Reason: Worsening of condition. Follow up: Private Physician; When: 2 - 3 days; Reason: Recheck today's complaints, Continuance of care, Re-evaluation by your physician. - Problem is new. - Symptoms have improved. Addendum: 06/17/2020 18:44 Co-signature as Attending Physician, Bety Hunter MD. m a2 Signatures: Dispatcher [employer] [facility] Srikanth Barrera, SPECIAL EVENT ASSISTANT SPECIAL EVENT ASSISTANT pm1 Bety Hunter MD MD ma2 Hellen Ortiz, RN RN ca1 Allyson Martinez RN RN zb Corrections: (The following items were deleted from the chart) 06/16 15:20 15:02 Stone Protocol+CT.RAD.BRZ ordered. [facility] 18:32 18:08 06/16/2020 18:08 Discharged to Home. Impression: Left flank pain. Condition is zb Stable. Forms are Medication Reconciliation Form, Thank You Letter, Antibiotic Education, Prescription Opioid Use. Follow up: Emergency Department; When: As needed; Reason: Worsening of condition. Follow up: Private Physician; When: 2 - 3 days; Reason: Recheck today's complaints, Continuance of care, Re-evaluation by your physician. Problem is new. Symptoms have improved. pm1
[2020-06-16 20:45] VITALS: BP 104/61; O2SAT 99
== END 2020-06-16 18:32 | disposition home or self-care (01) ==
LOC: ER 14:47
DX: R10.9 Unspecified abdominal pain (principal); F17.210 Nicotine dependence, cigarettes, uncomplicated; J45.909 Unspecified asthma, uncomplicated
CPT/HCPCS: 96361; 85025; 80048; 36415; 81025; 80076; 83690; 76770; 96375; 96374; 99284; J2550; J1170 ×2; J7030 ×2; J2405; 81003; 81015

== ENCOUNTER 2020-08-27 22:17 | Emergency (ER) | payer OTHER ==
[2020-08-27] MEDS ORDERED: MORPHINE 4 MG/ML SYR ONE (23:37)
[2020-08-27] MEDS ORDERED: NA CHLORIDE 0.9% 1,000 ML ONE (23:37)
[2020-08-27 23:45] LABS: Absolute Lymphocytes (CBC) 2.4 K/uL (0.7-4.9); Basophils % 1.3 % (0-1.3); Lymphocytes % 22.9 % (15.3-44.8); MPV 7.8 fL (7.6-11.3); RBC Red Blood Cell Count 3.85 M/uL (3.86-4.86)
[2020-08-27 23:58] LABS: ALT/SGPT 35 U/L (12-78); AST/SGOT 21 U/L (15-37); Alkaline Phosphatase 90 U/L (45-117); BUN Blood Urea Nitrogen 10 mg/dL (7-18); Bicarbonate 22 mmol/L (21-32); Bilirubin Direct < 0.1 mg/dL (0-0.2); Bilirubin Total 0.2 mg/dL (0.2-1.0); Glucose Level 92 mg/dL (74-106); Lipase 81 U/L (73-393); Potassium 4.1 mmol/L (3.5-5.1); Protein, Total 8.4 g/dL (6.4-8.2); Sodium Level 141 mmol/L (136-145)
[2020-08-28] MEDS ORDERED: MORPHINE 4 MG/ML SYR ONE (00:23)
[2020-08-28 01:02] LABS: Urine Blood Negative (Negative); Urine Glucose Negative (Negative); Urine Protein Negative (Negative); Urine Specific Gravity >=1.030 (1.005-1.030); Urine pH 6.5 (5.0-7.0)
[2020-08-28] MEDS ORDERED: HYDROMORPHONE HCL 1 MG/ML INJ ONE ×2 (01:11→02:36)
[2020-08-28 01:22] LABS: Urine Specific Gravity/Preg >1.030 (1.005-1.030)
--- NOTE | 2020-08-28 02:36 | ER ---
Nurse's Notes [facility] Name: Ana Lilia Kline Age: 24 yrs Sex: Female : 1995 Arrival Date: 08/27/2020 Time: 22:19 Bed 15 Private MD: Diagnosis: Cutaneous abscess of back [any part, except buttock] Presentation: 08/27 22:32 Chief complaint: Patient states: she had back surgery with a microdiscectomy at L5 for bb a herniated disc July 27, since then she has had an abscess to the incision site which has been drained x 2 since then but she is still having pain to that area, and is unable to sit down. Coronavirus screen: At this time, the client does not indicate any symptoms associated with coronavirus-19. Ebola Screen: No symptoms or risks identified at this time. Initial Sepsis Screen: Does the patient meet any 2 criteria? No. Patient's initial sepsis screen is negative. Does the patient have a suspected source of infection? Yes: Skin breakdown/wound. Risk Assessment: Do you want to hurt yourself or someone else? Patient reports no desire to harm self or others. Onset of symptoms was August 27, 2020. 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 - Social history:: Smoking status: Patient reports the use of cigarette tobacco products, smokes one-half pack cigarettes per day, Patient/guardian denies using alcohol, street drugs. Screenin:29 Abuse screen: Denies threats or abuse. Denies injuries from another. Nutritional ad5 screening: No deficits noted. Tuberculosis screening: No symptoms or risk factors identified. Fall Risk None identified. Assessment: 23:30 General: Appears uncomfortable, Behavior is calm, cooperative, appropriate for age. ad5 Pain: Complains of pain in coccyx. Neuro: No deficits noted. Level of Consciousness is awake, alert, obeys commands, Oriented to person, place, time, situation, Appropriate for age Gait is steady, Intact. Cardiovascular: No deficits noted. Heart tones present Capillary refill < 3 seconds Patient's skin is warm and dry. Respiratory: No deficits noted. Airway is patent Respiratory effort is even, unlabored, Respiratory pattern is regular, symmetrical. GI: No deficits noted. No signs and/or symptoms were reported involving the gastrointestinal system. : No deficits noted. No signs and/or symptoms were reported regarding the genitourinary system. Derm: Wound noted well-healing surgical incision site to coccyx, no discharge/bleeding or other abnormalities noted; pt reports pain to area. Musculoskeletal: No deficits noted. No signs and/or symptoms reported regarding the musculoskeletal system. 08/28 00:07 Reassessment: Patient appears in no apparent distress at this time. No changes from ad5 previously documented assessment. Pt reports no improvement in pain, provider aware, orders for additional analgesia provided at this time. 01:13 Reassessment: Patient appears in no apparent distress at this time. Patient and/or ad5 family updated on plan of care and expected duration. Pain level reassessed. Patient is alert, oriented x 3, equal unlabored respirations, skin warm/dry/pink. Patient states symptoms have improved. 02:27 Reassessment: Patient and/or family updated on plan of care and expected duration. Pain ad5 level reassessed. Patient is alert, oriented x 3, equal unlabored respirations, skin warm/dry/pink. Pt reports continued pain, additional analgesia administered as ordered. Pt VSS. Resp with ease. Will continue to monitor. 02:46 Reassessment: Pt stated she did not want to be transferred and did not want to stay. Pt ea reported she wanted to go AMA. AMA form signed and explained to pt. Pt left ED ambulatory tolerating well. Vital Signs: 08/27 22:32 BP 125 / 103; Pulse 128; Resp 22 S; Temp 96.7(TE); Pulse Ox 100% on R/A; Weight 127.01 bb kg (R); Height 5 ft. 2 in. (157.48 cm) (R); Pain 8/10; 08/28 00:24 BP 125 / 85; Pulse 118; Resp 20 S; Pulse Ox 97% on R/A; ad5 02:28 BP 122 / 81; Pulse 108; Resp 18 S; Pulse Ox 98% on R/A; ad5 08/27 22:32 Body Mass Index 51.21 (127.01 kg, 157.48 cm) bb ED Course: 08/27 22:19 Patient arrived in ED. am4 22:34 Triage completed. bb 22:36 Arm band placed on Patient placed in an exam room, on a stretcher. bb 22:38 Alexandro Petit PA is PHCP. cp 22:38 Palmer Paniagua MD is Attending Physician. cp 23:15 Mal Gilliam is Primary Nurse. ad5 23:29 Patient has correct armband on for positive identification. Bed in low position. Call ad5 light in reach. Side rails up X 1. 23:29 No provider procedures requiring assistance completed. Initial lab(s) drawn, by ny, ad5 sent to lab. Inserted saline lock: 20 gauge in left antecubital area, using aseptic technique. Blood collected. 08/28 00:58 CT Abd/Pelvis - IV Contrast Only In Process Unspecified. EDMS 01:55 Initiated transfer to [facility] spoke with Paz. ar5 02:05 [facility] decline to not having bed availability. ar5 02:14 Initiated transfer [facility] spoke with Genna. ar5 02:18 Initiated transfer to [facility] spoke with Shiloh. ar5 02:26 [facility] declined due to not having bed availability. ar5 02:30 Dr.-Dr. zepeda with Alexandro MAY. ar5 02:40 Acceptance given by Genna Feliciano. Accepting Dr. Reji Rodrigues. Call report to . ar5 Fax Facesheet and MOT to . Pt. going to [facility]. 02:45 Called [facility] to cancel transfer due to patient signing out AMA. ar5 Administered Medications: 08/27 23:28 Drug: NS 0.9% 1000 ml Route: IV; Rate: 1 bolus; Site: left antecubital; ad5 08/28 02:27 Follow up: IV Status: Completed infusion; IV Intake: 1000ml ad5 08/27 23:29 Drug: morphine 4 mg {Note: RASS 0.} Route: IVP; Site: left antecubital; ad5 08/28 00:05 Follow up: Response: No adverse reaction; Pain is unchanged, physician notified ad5 00:06 Drug: morphine 4 mg Route: IVP; Site: left antecubital; ad5 01:12 Follow up: Response: No adverse reaction ad5 01:00 Drug: Dilaudid (HYDROmorphone) 1 mg {Note: RASS 0.} Route: IVP; Site: left antecubital; ad5 02:27 Follow up: Response: No adverse reaction; Pain is decreased; RASS: Alert and Calm (0) ad5 02:24 Drug: Dilaudid (HYDROmorphone) 1 mg {Note: RASS 0.} Route: IVP; Site: left antecubital; ad5 02:50 Follow up: Response: No adverse reaction; Pain is decreased ad5 02:26 Drug: NS 0.9% 1000 ml Route: IV; Rate: 1 bolus; Site: left antecubital; ad5 02:50 Follow up: IV Status: Completed infusion ad5 02:26 Drug: Zosyn (piperacillin-tazobactam) 3.375 grams Route: IVPB; Infused Over: 60 mins; ad5 Site: left antecubital; 02:51 Follow up: IV Status: Completed infusion ad5 02:50 Not Given (Patient Refused): vancoMYCIN 1 grams IVPB once over 2 hrs ad5 Intake: 02:27 IV: 1000ml; Total: 1000ml. ad5 Outcome: 02:34 ER care complete, transfer ordered by MD. hernandez 02:50 AMA AMA form signed ea 02:51 Patient left the ED. ea Signatures: Dispatcher [employer] EDSommer Boggs RN RN bb Page, Corey, PA PA cp Antunez, Elena, RN RN ea Robles, Autumn arLakia Lopez Andrea ad5
--- NOTE | 2020-08-28 02:36 | EDPHYS ---
Physician Documentation [facility] Name: Ana Lilia Kline Age: 24 yrs Sex: Female : 1995 Arrival Date: 08/27/2020 Time: 22:19 Bed 15 Private MD: ED Physician Palmer Paniagua HPI: 08/27 23:15 This 24 yrs old Female presents to ER via Ambulatory with complaints of cp Incisional Pain. 23:15 Patient reports original surgery for discectomy performed by DR J Carlos Robles with cp [facility] in [place] on 07-27-2020. Patient reports developing post surgery abscess that required hospitalization and drainage on two separate occasions. Patient reports she is currently taking Keflex antibiotic. 23:15 The patient presents with pain pain to lower back. cp 23:15 The pain does not radiate. Associated signs and symptoms: Pertinent negatives: cp abdominal pain, dysuria, fever, incontinence, numbness, weakness. 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 - Social history:: Smoking status: Patient reports the use of cigarette tobacco products, smokes one-half pack cigarettes per day, Patient/guardian denies using alcohol, street drugs. ROS: 23:20 Constitutional: Negative for fever. cp 23:20 Eyes: Negative for injury, pain, redness, and discharge. cp 23:20 Cardiovascular: Negative for chest pain, palpitations. 23:20 Respiratory: Negative for cough, shortness of breath, wheezing. 23:20 Abdomen/GI: Negative for abdominal pain, nausea, vomiting, and diarrhea. 23:20 Back: Positive for pain at rest, pain with movement, of the lumbar area, Negative for radiated pain. 23:20 : Negative for urinary symptoms. 23:20 Neuro: Negative for altered mental status, headache, weakness. 23:20 All other systems are negative. Exam: 23:25 Constitutional: The patient appears in no acute distress, alert, awake, non-toxic, well cp developed, well nourished, obese. 23:25 Head/Face: Normocephalic, atraumatic. Vital Signs: 22:32 BP 125 / 103; Pulse 128; Resp 22 S; Temp 96.7(TE); Pulse Ox 100% on R/A; Weight 127.01 bb kg (R); Height 5 ft. 2 in. (157.48 cm) (R); Pain 8/; 08/28 00:24 BP 125 / 85; Pulse 118; Resp 20 S; Pulse Ox 97% on R/A; ad5 02:28 BP 122 / 81; Pulse 108; Resp 18 S; Pulse Ox 98% on R/A; ad5 08/27 22:32 Body Mass Index 51.21 (127.01 kg, 157.48 cm) bb MDM: 08/27 22:42 Patient medically screened. 23:45 Differential diagnosis: Herniated disc abscess, sciatica, cauda equina, spinal stenosis. 08/28 00:07 ED course: review of [place] prescription monitor website shows narcotic score of 650, cp sedative score of 370 and overdose risk score 710. Last RX noted was given 08-21-2020 for #30 hydrocodone 10/325. 02:30 Data reviewed: vital signs, nurses notes, lab test result(s), radiologic studies, CT scan. 02:30 Counseling: I had a detailed discussion with the patient and/or guardian regarding: the historical points, exam findings, and any diagnostic results supporting the discharge/admit diagnosis, lab results, radiology results, the need to transfer to another facility. 02:31 Physician consultation: was contacted at 02:31, regarding regarding transfer, to [facility]. patient's condition, spoke with DR Armando Forman, neurosurgery, concerning labs, CT findings and exam. Transfer center reports they will call back with name of accepting physician once bed assignment is secured. 08/27 23:09 Order name: Basic Metabolic Panel; Complete Time: 00:01 08/28 00:01 Interpretation: Normal except: CL 111. 08/27 23:09 Order name: CBC with Diff; Complete Time: 00:01 cp 08/28 00:01 Interpretation: Normal except: RBC 3.85; HGB 10.1; HCT 31.0; MCH 26.3; PLT 471; RDW cp 18.4; EOSINOPHIL % 5.0. 08/27 23:09 Order name: Hepatic Function; Complete Time: 00:01 cp 08/28 00:01 Interpretation: Normal except: TP 8.4; GLOB 4.4; A/G 0.9. cp 08/27 23:09 Order name: Lipase; Complete Time: 00:01 cp 08/28 01:02 Order name: Urine Dipstick-Ancillary; Complete Time: 02:29 EDMS 08/28 01:03 Order name: Urine --Ancillary (enter results); Complete Time: 02:29 ar5 08/27 23:09 Order name: CT Abd/Pelvis - IV Contrast Only cp 08/28 02:05 Order name: Procalcitonin cp 08/28 02:05 Order name: Lactate cp 08/28 02:05 Order name: Blood Culture Adult (2) cp 08/27 23:09 Order name: IV Saline Lock; Complete Time: 23:28 cp 08/27 23:09 Order name: Labs collected and sent; Complete Time: 23:28 cp 08/27 23:09 Order name: Urine Dipstick-Ancillary (obtain specimen) cp 08/27 23:09 Order name: Urine Test (obtain specimen) cp Administered Medications: 08/27 23:28 Drug: NS 0.9% 1000 ml Route: IV; Rate: 1 bolus; Site: left antecubital; ad5 08/28 02:27 Follow up: IV Status: Completed infusion; IV Intake: 1000ml ad5 08/27 23:29 Drug: morphine 4 mg {Note: RASS 0.} Route: IVP; Site: left antecubital; ad5 08/28 00:05 Follow up: Response: No adverse reaction; Pain is unchanged, physician notified ad5 00:06 Drug: morphine 4 mg Route: IVP; Site: left antecubital; ad5 01:12 Follow up: Response: No adverse reaction ad5 01:00 Drug: Dilaudid (HYDROmorphone) 1 mg {Note: RASS 0.} Route: IVP; Site: left antecubital; ad5 02:27 Follow up: Response: No adverse reaction; Pain is decreased; RASS: Alert and Calm (0) ad5 02:24 Drug: Dilaudid (HYDROmorphone) 1 mg {Note: RASS 0.} Route: IVP; Site: left antecubital; ad5 02:50 Follow up: Response: No adverse reaction; Pain is decreased ad5 02:26 Drug: NS 0.9% 1000 ml Route: IV; Rate: 1 bolus; Site: left antecubital; ad5 02:50 Follow up: IV Status: Completed infusion ad5 02:26 Drug: Zosyn (piperacillin-tazobactam) 3.375 grams Route: IVPB; Infused Over: 60 mins; ad5 Site: left antecubital; 02:51 Follow up: IV Status: Completed infusion ad5 02:50 Not Given (Patient Refused): vancoMYCIN 1 grams IVPB once over 2 hrs ad5 Disposition: 08/28/20 02:47 Patient has left against medical advice. Impression: Cutaneous abscess of back [any part, except buttock]. - Patients states they are going to Home. - Condition is Stable. Follow up: Private Physician; When: Upon discharge from the Emergency Department; Reason: Recheck today's complaints, Continuance of care, Re-evaluation by your physician. - Problem is an ongoing problem. - Symptoms are unchanged. Signatures: Dispatcher [employer] EDSommer Boggs RN RN Alexandro De La Garza PA PA cp Antunez, Elena, RN RN ea Wadley, Terrence, MD MD tw4 Mal Gilliam ad5 Corrections: (The following items were deleted from the chart) 02:24 06 23:15 Patient reports original surgery for discectomy performed by DR J Carlos Robles cp with [facility] in [place] on 07-17-2020. Patient reports developing post surgery abscess that required hospitalization and drainage on two separate occasions. Patient reports she is currently taking Keflex antibiotic. cp 08/28 02:47 02:34 08/28/2020 02:34 Transfer ordered to [facility]. Diagnosis is tw4 Paraspinal abscess of L4-S1. Reason for transfer: Higher level of care. Accepting physician is Doctor. Condition is Stable. Problem is an ongoing problem. Symptoms have improved. cp 02:51 02:47 08/28/2020 02:47 Patients has left against medical advice. Impression: Cutaneous ea abscess of back [any part, except buttock]. Patient states they are going to Home. Condition is Stable. Follow up: Private Physician; When: Upon discharge from the Emergency Department; Reason: Recheck today's complaints, Continuance of care, Re-evaluation by your physician. Problem is an ongoing problem. Symptoms are unchanged. tw4
[2020-08-28] MEDS ORDERED: NA CHLORIDE 0.9% 250 ML ONE (02:37)
[2020-08-28] MEDS ORDERED: PIPER/TAZO/NS 3.375gm 3.375 GM/100 ML BAG ONE (02:37)
[2020-08-28] MEDS ORDERED: VANCOMYCIN 1 GM/VIAL ONE (02:37)
[2020-08-28] MEDS ORDERED: NA CHLORIDE 0.9% 1,000 ML ONE (02:37)
[2020-08-28 03:06] VITALS: TEMP 96.7
[2020-08-28 03:10] VITALS: BP 122/81; O2SAT 98
--- NOTE | 2020-08-28 10:46 | RAD REPORT ---
EXAM DESCRIPTION: CT - Abdomen Pelvis W Contrast - 08/28/2020 6:55 am CLINICAL HISTORY: The patient is 24 years old and is Female; lower back pain, history of abscess TECHNIQUE: Axial computed tomography images of the abdomen and pelvis with intravenous contrast. S agittal and coronal reformatted images were created and reviewed. This CT exam was performed using one or more of the following dose reduction techniques: automated exposure control, adjustment of t he mA and/or kV according to patient size, and/or use of iterative reconstruction technique. COMPARISON: CT abdomen and pelvis without contrast 02/19/2020. FINDINGS: Lung bases: Unremarkable. No mass. No consolidation. ABDOMEN: Liver: Unremarkable. No mass. Gallbladder and bile ducts: Gallbladder is surgically absent. No ductal dilation. Pancreas: Unremarkable. No mass. No ductal dilation. Spleen: Unremarkable. No splenomegaly. Adrenals: Unremarkable. No mass. Kidneys and ureters: Unremarkable. No solid mass. No hydronephrosis. Stomach and bowel: Unremarkable. No obstruction. No mucosal thickening. PELVIS: Appendix: A the appendix is normal. Bladder: Unremarkable. No mass. Reproductive: Unremarkable as visualized. ABDOMEN and PELVIS: Intraperitoneal space: Unremarkable. No free air. No significant fluid collection. Bones/joints: Disc bulges at L4-5 and L5-S1. No acute fracture. No dislocation. Soft tissues: There is a 6.0 x 7.0 x 7.5 cm fluid collection within the posterior subcutaneous s oft tissues from the level of approximately L4-S2 with overlying skin thickening. The underlying post erior paraspinous muscles appear slightly heterogeneous at the midline and may be infiltrated. Vasculature: Unremarkable. No abdominal aortic aneurysm. Lymph nodes: Unremarkable. No enlarged lymph nodes. IMPRESSION: There is a 6.0 x 7.0 x 7.5 cm fluid collection within the posterior subcutaneous soft ti ssues from the level of approximately L4-S2 with overlying skin thickening. The underlying posterior paraspinous muscles appear slightly heterogeneous at the midline and may be infiltrated. Findings a re concerning for abscess. Electronically signed by: Leonel Joseph MD 08/28/2020 1:39 AM CDT Due to temporary technical issues with the PACS/Fluency reporting system, reports are being signed by the in house radiologist without review as a courtesy to ensure prompt reporting. The interpreting r adiologist is fully responsible for the content of the report.
== END 2020-08-28 02:51 | disposition left against medical advice (07) ==
LOC: ER 22:17
DX: L02.212 Cutaneous abscess of back [any part, except buttock and flank] (principal); F17.210 Nicotine dependence, cigarettes, uncomplicated; Z88.1 Allergy status to other antibiotic agents; Z88.5 Allergy status to narcotic agent; Z88.6 Allergy status to analgesic agent; Z88.8 Allergy status to other drugs, medicaments and biological substances
CPT/HCPCS: 87040 ×2; 85025; 80048; 36415; 87205 ×3; 81025; 80076; 83605; 81003; 83690; 84145; 74177; Q9967; J3370; J2543; J1170 ×2; J7050; J7030 ×2; 96361; 96365; 96375; 99284

== ENCOUNTER 2020-08-29 12:49 | Emergency (ER) | payer OTHER ==
--- OUTSIDE RECORDS SUMMARY | 2020-08-29 12:54 | XMS REPORT | Continuity of Care Document ---
:1995 Author Organization [facility] t Address [address] [place] [address] Care Team Providers Name Role Phone Yoselyn Doty MD Attending Clinician Leonardo CASTILLO Attending Clinician Berkley Jules MD Attending Clinician Shant MURRAY Attending Clinician Doctor Unassigned, Name Attending Clinician Unavailable PASCUAL Attending Clinician Unavailable Payers Payer Name Policy Type Policy Number Effective Date Expiration Date S ource Problems This patient has no known problems. Allergies, Adverse Reactions, Alerts Allergy Allergy Status Severity Reaction(s) Onset Inactive Treating Comm ents Source Name Type Date Date Clinician Unable DA Active U [facility] to - Assess 00:00: 00 doxycycl DA Active MO 2019-03 [facility] in[facility] 03-16 [place] 00:00: d [address] [place] [address] azithrom DA Active MO 2019- [facility] ycin 03-16 [facility] 00:00: d 00 [facility] metoclop DA Active U 2019- [facility] ramide 03-16 [facility] 00:00: d 00 [facility] Doxycycl Propensi Active GI 2019-0 [place] to Intolerance 2-16 Metho di adverse 00:00: st reaction 00 s to drug Ketorola Propensi Active Hives 2019-0 [place] ty to 2-16 [facility] adverse 00:00: st reaction 00 s to drug Azithrom Propensi Active Anaphylaxis 2019-0 [place] [facility] ty to 2-16 [facility] adverse 00:00: st reaction 00 s to drug doxycycl DA Active SV [facility] ine 2 Clear 00:00: Ng 00 [facility] Doxycycl Drug Active [facility] Allergy Breath 04[facility]01 [facility] 00 [place] Azithrom Drug Active [facility] Allergy Breath 04-01 [facility]: Medical 00 [place] azithrom DA Active SV [facility] ycin 5-09 Clear 00:00: Ng 00 [facility] Social History Social Habit Start Date Stop Date Quantity Comments Source Alcohol intake 2016-04-01 2016-04-01 Current [facility] es - 00:00:00 00:00:00 non-drinker of Medical Ce nter alcohol (finding) Sex Assigned At [birth year] Vu M ethodist 00:00:00 00:00:00 Smoking Status Start Date Stop Date Source Current every day smoker 2016-04-01 00:00:00 [facility] Medications Ordered Filled Start Stop Current Ordering Indication Dosage Frequency Signature Comments Components Source Medication Medication Date Date Medication? Clinician (SIG) Name Name ACETAZOLAMI Yes Take by [facility] DE ORAL 04-01 mouth. [facility] - 21:52: Medical [address] [place] [address] Vital Signs Vital Name Observation Time Observation Value Comments Source 02 Sat by Pulse Oximetry 2020-05-07 07:49:50 100 /min Body Mass Index 2020-05-07 07:49:50 49.4 Height 2020-05-07 07:49:50 157.48\\S\\62 Pulse Rate 2020-05-07 07:49:50 87 /min Respiratory Rate 2020-05-07 07:49:50 18 /min Temperature 2020-05-07 07:49:50 37\\S\\98.6 Weight 2020-05-07 07:49:50 495708.939\\S\\4320 Respiratory 2020-05-07 07:49:50 No respiratory distress /min Respiratory 2020-05-05 23:26:04 No respiratory distress /min 02 Sat by Pulse Oximetry 2020-05-05 23:26:04 100 /min Body Mass Index 2020-05-05 23:26:04 49.4 Height 2020-05-05 23:26:04 157.48\\S\\62 Pulse Rate 2020-05-05 23:26:04 87 /min Respiratory Rate 2020-05-05 23:26:04 18 /min Temperature 2020-05-05 23:26:04 37\\S\\98.6 Weight 2020-05-05 23:26:04 945515.939\\S\\4320 Respiratory 2020-05-05 16:38:31 No respiratory distress /min 02 Sat by Pulse Oximetry 2020-05-05 16:38:31 100 /min Body Mass Index 2020-05-05 16:38:31 49.4 Height 2020-05-05 16:38:31 157.48\\S\\62 Pulse Rate 2020-05-05 16:38:31 152 /min Respiratory Rate 2020-05-05 16:38:31 20 /min Temperature 2020-05-05 16:38:31 37.2\\S\\99.0 Weight 2020-05-05 16:38:31 033687.939\\S\\4320 Respiratory 2020-05-05 14:24:00 No respiratory distress /min 02 Sat by Pulse Oximetry 2020-05-05 14:24:00 100 /min Body Mass Index 2020-05-05 14:24:00 49.4 Height 2020-05-05 14:24:00 157.48\\S\\62 Pulse Rate 2020-05-05 14:24:00 152 /min Respiratory Rate 2020-05-05 14:24:00 20 /min Temperature 2020-05-05 14:24:00 37.2\\S\\99.0 Weight 2020-05-05 14:24:00 438152.939\\S\\4320 02 Sat by Pulse Oximetry 2020-05-05 13:30:25 100 /min Body Mass Index 2020-05-05 13:30:25 49.4 Height 2020-05-05 13:30:25 157.48\\S\\62 Pulse Rate 2020-05-05 13:30:25 152 /min Respiratory Rate 2020-05-05 13:30:25 20 /min Temperature 2020-05-05 13:30:25 37.2\\S\\99.0 Weight 2020-05-05 13:30:25 966081.939\\S\\4320 02 Sat by Pulse Oximetry 2020-05-05 13:17:41 100 /min Body Mass Index 2020-05-05 13:17:41 49.4 Height 2020-05-05 13:17:41 157.48\\S\\62 Pulse Rate 2020-05-05 13:17:41 152 /min Respiratory Rate 2020-05-05 13:17:41 20 /min Temperature 2020-05-05 13:17:41 37.2\\S\\99.0 Weight 2020-05-05 13:17:41 336316.939\\S\\4320 02 Sat by Pulse Oximetry 2020-05-05 13:15:39 100 /min Body Mass Index 2020-05-05 13:15:39 49.4 Height 2020-05-05 13:15:39 157.48\\S\\62 Pulse Rate 2020-05-05 13:15:39 152 /min Respiratory Rate 2020-05-05 13:15:39 20 /min Temperature 2020-05-05 13:15:39 37.2\\S\\99.0 Weight 2020-05-05 13:15:39 189949.939\\S\\4320 WEIGHT 2020-05-05 13:11:00 122.074332 kg HEIGHT 2020-05-05 13:11:00 157.48 cm Procedures This patient has no known procedures. Plan of Care Planned Activity Planned Date Details Comments Source Future Scheduled 2020-10-14 INFLUENZA VACCINE [place] [facility] Test 00:00:00 [code = INFLUENZA VACCINE] Future Scheduled 2016-09-06 Screening for Vu Me thodist Test 00:00:00 malignant neoplasm of cervix (procedure) [code = 706158078] Future Scheduled 2013-09-06 Hepatitis C Vu Met hodist Test 00:00:00 screening (procedure) [code = 706360613] Future Scheduled 2011 CHLAMYDIA SCREENING [place] [facility] Test 00:00:00 [code = CHLAMYDIA SCREENING] Future Scheduled 2007 COVID-19 VACCINE (1) Mckay shaver Scientologist Test 00:00:00 [code = COVID-19 VACCINE (1)] Encounters Start End Encounter Admission Attending Care Care Encounter Source Date/Time Date/Time Type Type Clinicians Facility Department ID 2020-08-28 2020-08-29 Emergency AlonzoSangita richard TRAUMA 1.2.840.114 [id number] 13:50:00 10:43:00 [facility] [id number] Darron Jules 4.2.7.2.686 [id number] 014 2020-04-27 2020-04-27 Emergency [facility] 1.2.840.114 [id number] 20:41:00 23:12:00 Mary Fischer 350.1.13.10 [place] 4.2.7.2.686 [place] [id number] 084 2020-04-27 2020-04-27 Orders Doctor COLE 1.2.840.114 [id number] 00:00:00 00:00:00 Only Unassigned, KEVYN 350.1.13.10 [place] [facility] 4.2.7.2.686 [id number] 009 2019-05-01 2019-05-01 Emergency [facility] 064 [id number] 32 [place] 00:00:00 00:00:00 [place] [address] Results Test Description Test Time Test Comments Results Result Comments Source LACTIC ACID 2020-04-25 02:52:00 Test Item Value Reference Range Interpretation Comme nts LACTIC ACID (test code = LACT) 1.0 mmol/L 0.7-2.0 N COMPREHENSIVE METABOLIC [id number] 02:28:00 Test Item Value Reference Range Interpretation [...] = ALKP) UA RFLX MICR CULT IF [id number] 01:22:00 Test Item Value Reference Range Interpretation [...] URINE: CLEAN CATCHUA RFLX MICR CULT IF [id number] 01:19:00 Test Item Value Reference Range Interpretation [...] code = LACT) toFirst Name: [id number] Last Name:[facility] [employer] Love C.LAB.MG, on , @ 0052. [id number] 00:50:00 Test Item Value Reference Range Interpretation Comments LIPASE (test code = LIP) 54 U/L 23-300 N CBC W/AUTO [id number] 00:49:00 Test Item Value Reference Range Interpretation [...] 0.04 x10 3/uL 0.0-0.1 N - RETRO [id number] 00:16:00 [facility] 1995 Sex: F [place]: St: REG Name: NATIVIDAD GREGG [facility] : 1995 Age/S: 24/F [address] Unit #: [id number] Loc: [place] [address] Phys: Luis Goddard NP Acct: [id number] Dis Date: Status: REG ER PHONE #: [phone] Exam Date: 04/24/2020 0005 FAX #: [phone] Reason: left flank pain EXAMS: CPT CODE: [id number] US RETRO LTD 56066 EXAM: - US RETRO LTD LOCATION: H57 [...] Leonel Delacruz MD CC: Technologist: Francine Jimenez RDMS RVT Trnscrd Date/Time/By: 04/25/2020 (0016) : By: carrie [email or web address] PAGE 1 Signed Report [place]: St: REG Name: NATIVIDAD GREGG [facility] Randy : 1995 Age/S: 24/F [address] Unit #: [id number] Loc: [place] [address] Phys: Luis Goddard NP Acct: [id number] Dis Date: Status: REG ER PHONE #: [phone] Exam Date: 04/24/2020 0005 FAX #: [phone] Reason: left flank pain EXAMS: CPT CODE: [id number] RETRO LTD 98473 <Continued> Orig Print D/T: S: 04/25/2020 (0019) PAGE 2 Signed ReportCOVID 19 INHOUSE [id number] 21:16:00 Test Item Value Reference Range Interpretation Comments COVID 19 INHOUSE AG NEGATIVE Negative Per manu facturer, (test code = negative result s should [id number]) be treated aspr esumptive and, if inconsi [...] nsistent with COVID-19. - XR CHEST 1 [id number] 20:44:00 [facility] 1995 Sex: F Name: NATIVIDAD GREGG [place] : 1995 Age/S: 24 [place] Unit #: [id number] Loc: [place] [address] Phys: Anita Kruse MD Acct: [id number] Dis Date: Status: REG ER PHONE #: [phone] Exam Date: 01/18/20202023 FAX #: Reason: Code Sepsis EXAMS: CPT: [id number] XR CHEST 1 V 97747 Fluoro Time: DAP (Gy m2): Air Kerma [...] PAGE 1 Signed Report Name: NATIVIDAD GREGG [place] : 1995 Age/S: 24 / [place] Unit #: [id number] Loc: [place] [address] Phys: Anita Kruse MD Acct: [id number] Dis Date: Status: REG ER PHONE #: [phone] Exam Date: 01/18/20202023 FAX #: Reason: Code Sepsis EXAMS: CPT: [id number] XR CHEST 1 V 76315 Fluoro Time: DAP (Gy m2): Air Kerma (mGy): <Continued> Technologist: Brandi Clark RT(R)(CT) Trnscb Date/Time: 01/18/2020 (2043) MistyVR5 Orig Print D/T: S: 01/18/2020 (2047) PAGE 2 Signed ReportUA RFLX MICR CULT IF [id number] 20:17:00 Test Item Value Reference Range Interpretation [...] UACULT) Indication for culture: Suprapubic PainBASIC METABOLIC [id number] 20:13:00 Test Item Value Reference Range Interpretation [...] 8.5-10.1 N Completed by Nursing: NOHEPATIC FUNCTION [id number] 20:13:00 Test Item Value Reference Range Interpretation [...] N code = ALKP) Completed by Nursing: [id number] 20:13:00 Test Item Value Reference Range Interpretation [...] jesse yby method. Completed by Nursing: NOLACTIC [id number] 20:13:00 Test Item Value Reference Range Interpretation Comments LACTIC ACID (test code = LACT) 1.8 mmol/L 0.4-2.0 N CBC W/AUTO [id number] 19:57:00 Test Item Value Reference Range Interpretation [...] NO DIFF/SCN CRITERIA = MDIFF) BASIC METABOLIC [id number] 07:22:00 Test Item Value Reference Range Interpretation [...] 8.7 mg/dL 8.4-10.2 N CA) CBC W/AUTO [id number] 07:03:00 Test Item Value Reference Range Interpretation [...] 0.05 x10 3/uL 0.0-0.1 N BASIC METABOLIC [id number] 05:56:00 Test Item Value Reference Range Interpretation [...] 8.4 mg/dL 8.4-10.2 N CA) CBC W/AUTO [id number] 05:42:00 Test Item Value Reference Range Interpretation [...] *LDL Cholesterol<1 00mg/ dL: Desirable L DL-C jilzwghdqukba75 0-159 mg/dL: Borderli ne High Risk LDL-C byzevwsymjigr58 0-189 mg/dL: High ris k LDL-C concentra [...] AVG 11.04~~~~~~~~~~ ~~~~~~~ ~~~~~~~~~~~~~~~ ~~~~~~~ ~~~~~~~~~~~~~~~ ~~~~~~N [facility] shubham Education (NCEP ) Guidelines:~~~~ ~~~~~~~ ~~~~~~~~~~~~~~~ ~~~~~~~ ~~~~~~~~~~~~~~~ ~~~~~~~ ~~~~~ HDL Cholesterol<4 0mg/dL: HDL Cholesterol (Major risk factor for CHD)>60mg/dL: H DL Cholesterol (Ne gative risk factor for CHD)40-59mg/dL: Borderline Risk L DL Cholesterol<1 00mg/dL : Desirable LDL -C agwbwwxpgwtoo53 0-159mg /dL: Borderline High Risk LDL-C pbqrjbqyqphyr58 0-189mg /dL: High risk LDL-C concentration H DL-LDL Cholesterol is affected by a n umber of factors such as smoking, age an d sex.~~~~~~~~~~~ ~~~~~~~ ~~~~~~~~~~~~~~~ ~~~~~~~ ~~~~~~~~~~~~~~~ ~~~~~ LACTIC [id number] 17:52:00 Test Item Value Reference Range Interpretation Comments LACTIC ACID (test code = LACT) 1.6 mmol/L 0.7-2.0 N Coronavirus 2019 nCoV [id number] 17:03:00 Test Item Value Reference Range Interpretation Comments Coronavirus 2019 Negative NEGATIVE This test h as been nCoV Bedside (test authorize d by FDA under code = [id number]) an EUA for use byauthorized laboratories; This [...] and/o r diagnosis of CO VID-19 under [place]21 4(b)(1) of the Act, 21 U.S .C. 360bbb-3(b)(1), unless theauthorizatio n is terminated or r evoked sooner. LACTIC [id number] 16:44:00 Test Item Value Reference Range Interpretation Comments LACTIC ACID (test 2.1 mmol/L 0.7-2.0 HH Critical V alue reported code = LACT) toFirst Name:UTE D6486 Last Name:CHEL JUNG [employer] Love C.LAB.LAS1, on 01/15/20, @ 164 4. UA RFLX MICR CULT IF [id number] 16:42:00 Test Item Value Reference Range Interpretation [...] for culture: Dysuria/FrequencySOURCE OF URINE: CLEAN CATCHLACTIC [id number] 15:54:00 Test Item Value Reference Range Interpretation Comments LACTIC ACID (test 2.6 mmol/L 0.7-2.0 HH Critical V alue reported code = LACT) toFirst Name:PR I8356 Last Name:[facility] FABIANA [employer] BACK [employer] Love C.LAB.LAS1, on 01/15/20, @ 155 4. BASIC METABOLIC [id number] 15:50:00 Test Item Value Reference Range Interpretation [...] 9.6 mg/dL 8.4-10.2 N CA) LIVER FUNCTION [id number] 15:50:00 Test Item Value Reference Range Interpretation [...] U/L 38-126 N (test code = ALKP) [id number] 15:50:00 Test Item Value Reference Range Interpretation Comments LIPASE (test code = LIP) 47 U/L 23-300 N PROTHROMBIN [id number] 15:50:00 Test Item Value Reference Range Interpretation [...] - 3.0 Atrial fibrillation 2.0 - 3.03. Subassembly Supervisor al prosthetic valv es (high risk) 2.5 - 3.5 * If oral anticoagulant t herapy is elected to preventrecurren t myocardial infa rction, an INR of 2.5-3 .5 isrecommended, consistent with Food and Drug Administrationr ecommen dations. THROMBOPLASTIN TIME [id number] 15:50:00 Test Item Value Reference Range Interpretation Comments THROMBOPLASTIN TIME 31.8 SECONDS 23.4-37.0 N Therap eutic Range PARTIAL (test code = for Hep katherine PTT) EFFECTIVE Heparin IU/mL aPT T Seconds0.3 64.30.7 88.8 BASIC METABOLIC [id number] 15:49:00 Test Item Value Reference Range Interpretation [...] 9.6 mg/dL 8.4-10.2 N CA) LIVER FUNCTION [id number] 15:49:00 Test Item Value Reference Range Interpretation [...] U/L 38-126 N (test code = ALKP) [id number] 15:49:00 Test Item Value Reference Range Interpretation Comments LIPASE (test code = LIP) U/L 23-300 CBC W/AUTO [id number] 15:30:00 Test Item Value Reference Range Interpretation [...] 3/uL 0.0-0.1 N - XR CHEST 1 [id number] 15:03:00 [facility] WOODName: NATIVIDAD GREGG : 1995 Sex: F [place]: St: PRE Name: NATIVIDAD GREGG : 1995 Age/S: 24/F [address] Unit #: [id number] Loc: [place] [address] Phys: Mason SchofieldYADIRA Acct: [id number] Dis Date: Status: PRE ER PHONE #: [phone] Exam Date: 01/15/2020 1450 FAX #: [phone] Reason: CODE SEPSIS EXAMS: CPT CODE: [id number] XR CHEST 1 V 69018 EXAM: Portable chest x-ray, one view INDICATION: [...] thickening suggest bronchitis and/or viral pneumonitis. at 1506 Reported and signed by: Mu Vallejo M.D. CC: Technologist: MANPREET COSBY; STUDENT 2ND YEAR Trnnmrd Date/Time/By: 01/15/2020 (3445) : By: Jaydon PAGE 1 Signed Report [place]: [facility] [place]: PRE Name: NATIVIDAD GREGG : 1995 Age/S: 24/F [address] Unit #: [id number] Loc: [place] [address] Phys: Mason Schofield Acct: [id number] Dis Date: Status: PRE ER PHONE #: [phone] Exam Date: 01/15/2020 1453 FAX #: [phone] Reason: CODE SEPSIS EXAMS: CPT CODE: [id number] XR CHEST 1 V 05291 <Continued> Orig Print D/T: S: 01/15/2020 (1507) PAGE 2 Signed Report- XR CHEST 1 [id number] 15:03:00[facility] : 1995 Sex: F [place]: St: DIS Name: CRISTINONATIVIDAD BUSTAMANTE [facility] : 1995 Age/S: 24/F [address] Unit #: [id number] Loc: [place] [address] Phys: Victorino Schofield Acct: [id number] Dis Date: [id number] Status: DIS IN PHONE #: [phone] Exam Date: 01/15/2020 1450 FAX #: [phone] Reason: CODE SEPSIS EXAMS: CPT CODE: [id number] XR CHEST 1 V 24591 EXAM: Portable chest x-ray, one view INDICATION: [...] CC: Technologist: HARJEET CASE; STUDENT 2ND YEAR Trnscrd Date/Time/By: 01/15/2020 (5520) : By: Jaydon PAGE 1 Signed Report [place]: St: DIS Name: NATIVIDAD GREGG [facility] : 1995 Age/S: 24/F [address] Unit #: [id number] Loc: [address] [place] [address] Phys: Mason Schofield Acct: [id number] Dis Date: [id number] Status: DIS IN PHONE #: [phone] Exam Date: 01/15/2020 1450 FAX #: [phone] Reason: CODE SEPSIS EXAMS: CPT CODE: [id number] XR CHEST 1 V 44345 <Continued> Orig Print D/T: S: 01/15/2020 (0675) PAGE 2 Signed ReportLACTIC [id number] 01:50:00 Test Item Value Reference Range Interpretation Comments LACTIC ACID (test code = LACT) 1.2 mmol/L 0.7-2.0 N COMPREHENSIVE METABOLIC [id number] 00:45:00 Test Item Value Reference Range Interpretation [...] N (test code = ALKP) HCG SERUM [id number] 00:45:00 Test Item Value Reference Range Interpretation Comments HCG SERUM QUAL (test code = HCGQL) NEGATIVE NEGATIVE LACTIC [id number] 00:13:00 Test Item Value Reference Range Interpretation Comments LACTIC ACID (test 2.3 mmol/L 0.7-2.0 HH Critical V alue reported code = LACT) toFirst Name:AYAN K9646 Last Name:CHEL JUNG [employer] ShuklaLAB.WR, on , @ 0013. UA RFLX MICR CULT IF [id number] 00:06:00 Test Item Value Reference Range Interpretation [...] Dysuria/FrequencySOURCE OF URINE: CLEAN CATCH COMPREHENSIVE METABOLIC [id number] 23:43:00 Test Item Value Reference Range Interpretation [...] N (test code = ALKP) HCG SERUM [id number] 23:43:00 Test Item Value Reference Range Interpretation Comments HCG SERUM QUAL (test code = HCGQL) NEGATIVE CBC W/AUTO [id number] 23:38:00 Test Item Value Reference Range Interpretation [...] BA#) 0.06 x10 3/uL 0.0-0.1 N LACTIC [id number] 19:19:00 Test Item Value Reference Range Interpretation Comments LACTIC ACID (test code = LACT) 1.6 mmol/L 0.7-2.0 N UA RFLX MICR CULT IF [id number] 18:41:00 Test Item Value Reference Range Interpretation [...] Flank PainSOURCE OF URINE: CLEAN CATCHBASIC METABOLIC [id number] 18:39:00 Test Item Value Reference Range Interpretation [...] 10.0 mg/dL 8.4-10.2 N CA) LIVER FUNCTION [id number] 18:39:00 Test Item Value Reference Range Interpretation [...] U/L 38-126 N (test code = ALKP) [id number] 18:39:00 Test Item Value Reference Range Interpretation Comments LIPASE (test code = LIP) 81 U/L 23-300 N BASIC METABOLIC [id number] 18:37:00 Test Item Value Reference Range Interpretation [...] 10.0 mg/dL 8.4-10.2 N CA) LIVER FUNCTION [id number] 18:37:00 Test Item Value Reference Range Interpretation [...] U/L 38-126 N (test code = ALKP) [id number] 18:37:00 Test Item Value Reference Range Interpretation Comments LIPASE (test code = LIP) U/L 23-300 - CT ABD PELVIS W/O [id number] 18:36:00 [facility] : 1995 Sex: F FAX: Mayelin Santos [phone] [place]: St: PRE Name: NATIVIDAD GREGG [facility] : 1995 Age/S: 24/F [address] Unit: [id number] Loc: [place] [address] Phys: Mayelin Tyler 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 Acct: [id number] Dis Date: Status: PRE ER PHONE #: [phone] Exam Date: 01/13/2020 1820 FAX #: [phone] Reason: flank pain EXAMS: CPT CODE: [id number] CT ABD PELVIS W/O CONT 67876 Examination: Abdomen and pelvic CT without contrast [...] 1 Signed Report (CONTINUED) FAX: Mayelin Santos [phone] [place]: St: PRE--------- Name: NATIVIDAD GREGG [facility] : 1995 Age/S: 24/F [address] Unit: [id number] Loc: [place] [address] Phys: Mayelin Mesa NP Acct: [id number] Dis Date: Status: PRE ER PHONE #: [phone] Exam Date: 01/13/2020 1820 FAX #: [phone] Reason: flank pain EXAMS: CPT CODE: [id number] CT ABD PELVIS W/O CONT 75011 <Continued> CC: Mayelin Tyler NP Technologist: Rosa Savage Trnscrd Dt/Tm: 01/13/2020 (1835) [id number] Orig Print D/T: S: 01/13/2020 (1839 PAGE [...] Flank PainSOURCE OF URINE: CLEAN CATCHCBC W/AUTO [id number] 18:19:00 Test Item Value Reference Range Interpretation [...]
--- NOTE | 2020-08-29 13:52 | ER ---
Nurse's Notes [facility] Name: Ana Lilia Kline Age: 24 yrs Sex: Female : 1995 Arrival Date: 08/29/2020 Time: 12:51 Bed 8 Private MD: Diagnosis: Localized swelling, mass and lump, unspecified-lumbar/sacral area Presentation: 08/29 12:58 Chief complaint: Patient states: I have a seroma attached between my L5 and S1. I am in ca1 pain and has been worse in the last hour, I can't breathe with the pain. Coronavirus screen: Client denies travel out of the [place] in the last 14 days. At this time, the client does not indicate any symptoms associated with coronavirus-19. Ebola Screen: Patient negative for fever greater than or equal to 101.5 degrees Fahrenheit, and additional compatible Ebola Virus Disease symptoms Patient denies exposure to infectious person. Patient denies travel to an Ebola-affected area in the 21 days before illness onset. No symptoms or risks identified at this time. Initial Sepsis Screen: Does the patient meet any 2 criteria? No. Patient's initial sepsis screen is negative. Does the patient have a suspected source of infection? No. Patient's initial sepsis screen is negative. Risk Assessment: Do you want to hurt yourself or someone else? Patient reports no desire to harm self or others. Onset of symptoms was August 29, 2020. 12:58 Method Of Arrival: Ambulatory ca1 12:58 Acuity: KATY 2 ca1 Triage Assessment: 13:07 General: Appears distressed, uncomfortable, obese, Behavior is cooperative, appropriate bp for age, anxious. Pain: Complains of pain in back. EENT: No signs and/or symptoms were reported regarding the EENT system. Neuro: Level of Consciousness is awake, alert, obeys commands, Oriented to person, place, time, situation. Cardiovascular: Rhythm is sinus tachycardia. Respiratory: Reports shortness of breath cough that is productive, Breath sounds are clear bilaterally. GI: GI: Abd is soft X 4 quads. : No signs and/or symptoms were reported regarding the genitourinary system. Derm: No deficits noted. Musculoskeletal: Circulation, motion, and sensation intact. Range of motion: intact in all extremities. 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 - Social history:: Smoking status: Patient reports the use of cigarette tobacco products, smokes one-half pack cigarettes per day. Screenin:10 Abuse screen: Denies threats or abuse. Denies injuries from another. Nutritional bp screening: No deficits noted. Tuberculosis screening: No symptoms or risk factors identified. Fall Risk None identified. Assessment: 13:07 General: SEE TRIAGE NOTE. bp 13:43 Reassessment: ALL CURRENT ORDERS CANCELLED BY LMP. PT SEEN FOR SAME TODAY, TO F/U WITH bp PCP. 13:53 Reassessment: PT D/C HOME AMBULATORY, DECLINED TO WAIT FOR D/C PAPERS. Neuro: Level of bp Consciousness is awake, alert, Oriented to Appropriate for age Gait is steady. Vital Signs: 12:58 BP 151 / 119; Pulse 128; Resp 20 S; Temp 98.2(O); Pulse Ox 100% on R/A; Weight 127.01 ca1 kg (R); Height 5 ft. 2 in. (157.48 cm) (R); Pain 10/10; 14:01 BP 129 / 80; Pulse 85; Resp 16; Pulse Ox 100% ; bp 12:58 Body Mass Index 51.21 (127.01 kg, 157.48 cm) ca1 ED Course: 12:51 Patient arrived in ED. as 12:53 Darron Gamboa, CIARRA is Primary Nurse. bp 13:01 Triage completed. ca1 13:02 Arm band placed on right wrist. ca1 13:10 Alexandro Petit PA is PHCP. cp 13:10 Navi Sheldon MD is Attending Physician. cp 13:10 Patient has correct armband on for positive identification. Bed in low position. Call bp light in reach. Side rails up X2. 14:00 No provider procedures requiring assistance completed. Patient did not have IV access bp during this emergency room visit. Administered Medications: No medications were administered Outcome: 13:51 Discharge ordered by . cp 14:00 Discharged to home ambulatory. bp 14:00 Condition: stable 14:00 Discharge instructions given to REFUSED 14:02 Patient left the ED. bp Signatures: Abigail Diamond Corey, PA PA cp Peltier, Brian, RN RN bp Hellen Ortiz RN RN ca1 Corrections: (The following items were deleted from the chart) 13:01 12:58 Acuity: KATY 3 ca1 ca1
--- NOTE | 2020-08-29 13:52 | EDPHYS ---
Physician Documentation [facility] Name: Ana Lilia Kline Age: 24 yrs Sex: Female : 1995 Arrival Date: 08/29/2020 Time: 12:51 Bed 8 Private MD: ED Physician aNvi Sheldon HPI: 08/29 13:35 This 24 yrs old Female presents to ER via Ambulatory with complaints of Back cp Pain, Shortness Of Breath. 13:35 The patient presents with pain low back pain. The symptoms are located in the low back. cp The pain does not radiate. Associated signs and symptoms: Pertinent negatives: abdominal pain, chest pain, constipation, fever, incontinence, numbness, weakness. The problem was sustained. 13:35 Patient reports discectomy performed 07-27-2020 with subsequent development of cp abscess/fluid collection in lumbar/sacral area and 2 occasions in which she was hospitalized and surgical drainage performed. 13:35 Patient reports she was released from [facility] earlier today after cp evaluation by neurosurgeon and instructed to f/u with surgeon who performed discectomy in [place]. Patient reports she is traveling to [place] but had to stop due to pain. 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 - Social history:: Smoking status: Patient reports the use of cigarette tobacco products, smokes one-half pack cigarettes per day. ROS: 13:37 Constitutional: Negative for body aches, chills, fever, poor PO intake. cp 13:37 Eyes: Negative for injury, pain, redness, and discharge. cp 13:37 Cardiovascular: Negative for chest pain, edema, palpitations. 13:37 Respiratory: Negative for cough, shortness of breath, wheezing. 13:37 Abdomen/GI: Negative for abdominal pain, nausea, vomiting, and diarrhea, bowel incontinence. 13:37 Back: Positive for pain at rest, pain with movement, of the lumbar area and sacrum. 13:37 : Negative for urinary symptoms, bladder incontinence. 13:37 Neuro: Negative for dizziness, headache, numbness, weakness. 13:37 All other systems are negative. Exam: 13:40 Constitutional: The patient appears in no acute distress, alert, awake, non-toxic, well cp developed, well nourished, obese. 13:40 Head/Face: Normocephalic, atraumatic. cp 13:40 Eyes: Periorbital structures: appear normal, Conjunctiva: normal, no exudate, no injection, Sclera: no appreciated abnormality, Lids and lashes: appear normal, bilaterally. 13:40 Chest/axilla: Inspection: normal. 13:40 Cardiovascular: Rate: tachycardic, Rhythm: regular. 13:40 Respiratory: the patient does not display signs of respiratory distress, Respirations: normal, no use of accessory muscles, no retractions, labored breathing, is not present, Breath sounds: are clear throughout, no decreased breath sounds, no stridor, no wheezing. 13:40 Abdomen/GI: Exam negative for discomfort, distension, guarding, Inspection: abdomen appears normal. 13:40 Back: pain, that is moderate, of the lumbar area and sacrum, ROM is normal. 13:40 Skin: cellulitis, is not appreciated. 13:40 Neuro: Motor: moves all fours, strength is normal, Gait: is steady, at a normal pace, without difficulty. Vital Signs: 12:58 BP 151 / 119; Pulse 128; Resp 20 S; Temp 98.2(O); Pulse Ox 100% on R/A; Weight 127.01 ca1 kg (R); Height 5 ft. 2 in. (157.48 cm) (R); Pain 10/10; 14:01 BP 129 / 80; Pulse 85; Resp 16; Pulse Ox 100% ; bp 12:58 Body Mass Index 51.21 (127.01 kg, 157.48 cm) ca1 MDM: 13:15 Patient medically screened. cp 13:30 Differential diagnosis: abscess, seroma, drug seeking behavior. cp 13:50 Data reviewed: vital signs, nurses notes, old medical records, I have discussed the cp patient's presentation/case with the attending Emergency Department Physician; and as a result, I will discharge patient. 13:50 Counseling: I had a detailed discussion with the patient and/or guardian regarding: the cp historical points, exam findings, and any diagnostic results supporting the discharge/admit diagnosis, the need for outpatient follow up, a neurosurgeon. 13:50 ED course: Reviewed MRI report of lumbar area patient provided that shows no abscess of cp lumbar/sacral area and recommendation for patient to f/u with primary surgeon. Consult with DR Sheldon concerning patient's multiple visits for pain meds. Will discharge to home. 08/29 13:46 Order name: Misc. Order: cancel all orders please; Complete Time: 13:53 cp Administered Medications: No medications were administered Disposition: 08/30 07:24 Co-signature as Attending Physician, Navi Sheldon MD I agree with the assessment and kdr plan of care. Disposition: 08/29/20 13:51 Discharged to Home. Impression: Localized swelling, mass and lump, unspecified - lumbar/sacral area. - Condition is Stable. - Discharge Instructions: Back Pain, Adult. - Medication Reconciliation Form, Thank You Letter, Antibiotic Education, Prescription Opioid Use form. - Follow up: Private Physician; When: 1 - 2 days; Reason: Recheck today's complaints. - Problem is an ongoing problem. - Symptoms are unchanged. Signatures: Dispatcher [employer] EDMS Navi Sheldon MD MD [facility] Alexandro Petit PA PA cp Darron Gamboa RN RN bp Hellen Ortiz RN RN ca1 Corrections: (The following items were deleted from the chart) 08/29 13:47 13:27 IV Saline Lock ordered. cp bp 13:47 13:27 Labs collected and sent ordered. cp bp 13:47 13:29 Urine Dipstick-Ancillary ordered. cp bp 13:47 13:29 Urine Test ordered. cp bp 14:02 13:51 08/29/2020 13:51 Discharged to Home. Impression: Localized swelling, mass and bp lump, unspecified - lumbar/sacral area. Condition is Stable. Forms are Medication Reconciliation Form, Thank You Letter, Antibiotic Education, Prescription Opioid Use. Follow up: Private Physician; When: 1 - 2 days; Reason: Recheck today's complaints. Problem is an ongoing problem. Symptoms are unchanged. cp 08/30 13:47 08/29 13:50 ED course: Reviewed MRI report of lumbar area patient provided that shows cp no abscess of lumbar/sacral area and recommendation for patient to f/u with primary surgeon. Consult with DR Russell concerning patient's multiple visits for pain meds. Will discharge to home. cp
[2020-08-29 14:34] VITALS: TEMP 98.2; O2SAT 100
[2020-08-29 14:41] VITALS: BP 129/80
== END 2020-08-29 14:02 | disposition home or self-care (01) ==
LOC: ER 12:49
DX: R22.9 Localized swelling, mass and lump, unspecified (principal); F17.210 Nicotine dependence, cigarettes, uncomplicated; Z88.1 Allergy status to other antibiotic agents; Z88.5 Allergy status to narcotic agent; Z88.8 Allergy status to other drugs, medicaments and biological substances
CPT/HCPCS: 99284

== ENCOUNTER 2020-10-23 17:02 | Emergency (ER) | payer OTHER ==
--- OUTSIDE RECORDS SUMMARY | 2020-10-23 17:06 | XMS REPORT | Continuity of Care Document ---
:1995 Author Organization [facility] t Address [address] [place] [address] Care Team Providers Name Role Phone Provider Primary Care Physician Unavailable Dulce Maria Phelan DO Attending Clinician Yoselyn Doty MD Attending Clinician Leonardo CASTILLO Attending Clinician Berkley Jules MD Attending Clinician Shant MURRAY Attending Clinician Doctor Unassigned, Name Attending Clinician Unavailable PASCUAL Attending Clinician Unavailable Payers Payer Name Policy Type Policy Effective Expiration Source Number Date Date AMERIGROUPAMERIGRP STAR [id number] 2018 M kianaodist [id number] 2018-Pr 00:00:00 H ospital esentHMO Problems This patient has no known problems. Allergies, Adverse Reactions, Alerts Allergy Allergy Status Severity Reaction(s) Onset Inactive Treating Comm ents Source Name Type Date Date Clinician Unable DA Active U [facility] to 2-20 Assess 00:00: 00 metoclop DA Active U 2019- [facility] ramide 03-16 [facility] 00:00: d 00 Medical [place] doxycycl DA Active MO 2019-03 [facility] ine 03-16 [facility] 00:00: d 00 [facility] [place] azithrom DA Active MO 2019-03 [facility] ycin 03-16 [facility] 00:00: d 00 [facility] Azithrom Propensi Active Anaphylaxis 2020-0 M ethodi ycin ty to 2-16 st adverse 00:00: Hospita reaction 00 l s to drug Doxycycl Propensi Active GI 2019-0 Method i ine ty to Intolerance 2-16 st adverse 00:00: Hospita reaction 00 l s to drug Ketorola Propensi Active Hives 2019-0 Method i c ty to 2-16 st adverse 00:00: Hospita reaction 00 l s to drug doxycycl DA Active SV [facility] ine 2-09 Clear 00:00: Ng 00 [facility] Doxycycl Drug Active [facility] Allergy Breath 1[facility]17 [facility] 00 [place] Azithrom Drug Active [facility] Allergy Breath 1-17 [facility]: [facility] 00 [place] azithrom DA Active SV [facility] ycin 5-09 Clear 00:00: Ng 00 [facility] Social History Social Habit Start Date Stop Date Quantity Comments Source History SDWI [facility] al History SDWI [facility] Exposure to Not sure [facility] SARS-CoV-2 (event) Hospit al History of tobacco Cigarette Smoker [facility] use [facility] Cigarette 2020-10-21 2020-10-21 [facility] pack-[facility] 00:[facility]:00 00:00:00 Hospital Tobacco use and 2020-10-21 2020-10-21 Never used [facility] exposure 00:[facility]:00 00:00:00 Hospital Alcohol intake 2020-10-21 2020-10-21 Lifetime [facility] 00:00:00 00:00:00 non-drinker Hospital (finding) History SDOH 2020-10-21 2020-10-21 1 [facility] Alcohol Frequency 00:00:00 00:00:00 Hospita l Cigarettes smoked 2020-10-21 2020-10-[address] current (pack per 00:00:00 00:00:00 Hospita l day) - Reported Sex Assigned At [birth year] [facility] 00[facility]00 [facility] Smoking Status Start Date Stop Date Source Former smoker 2020-10-21 00:00:00 2020-10-21 00:00:00 [facility] Current every day 2016-04-01 00:00:[address] [facility] - Medical smoker Center Medications Ordered Filled Start Stop Current Ordering Indication Dosage Frequency Signature Comments Components Source Medication Medication Date Date Medication? Clinician (SIG) Name Name ACETAZOLAMI Yes Take by [facility] DE ORAL 04-01 mouth. [facility] No known No Methodi medications [facility] Hospita Vital Signs Vital Name Observation Time Observation Value Comments Source Body height 2020-10-22 04:27:00 157.5 cm [facility] Body weight 2020-10-22 04:27:00 127.007 kg [facility] BMI 2020-10-22 04:27:00 51.21 kg/m2 [facility] Systolic blood 2020-10-22 04:24:53 155 mm[Hg] Method is pressure [facility] Diastolic blood 2020-10-22 04:24:53 78 mm[facility]Hg[facility] Heart rate 2020-10-22 04:24:53 128 /min [facility] Body temperature 2020-10-22 04:24:53 36 Martina [facility] Respiratory rate 2020-10-22 04:24:53 20 /min [facility] Oxygen saturation in 2020-10-22 04:24:53 98 /min [facility] Arterial blood by Hospital Pulse oximetry Respiratory 2020-05-07 07:49:50 No respiratory distress /min 02 Sat by Pulse 2020-05-07 07:49:50 100 /min Oximetry Body Mass Index 2020-05-07 07:49:50 49.4 Height 2020-05-07 07:49:50 157.48\\S\\62 Pulse Rate 2020-05-07 07:49:50 87 /min Respiratory Rate 2020-05-07 07:49:50 18 /min Temperature 2020-05-07 07:49:50 37\\S\\98.6 Weight 2020-05-07 07:49:50 324296.939\\S\\4320 Respiratory 2020-05-05 23:26:04 No respiratory distress /min 02 Sat by Pulse 2020-05-05 23:26:04 100 /min Oximetry Body Mass Index 2020-05-05 23:26:04 49.4 Height 2020-05-05 23:26:04 157.48\\S\\62 Pulse Rate 2020-05-05 23:26:04 87 /min Respiratory Rate 2020-05-05 23:26:04 18 /min Temperature 2020-05-05 23:26:04 37\\S\\98.6 Weight 2020-05-05 23:26:04 388654.939\\S\\4320 Respiratory 2020-05-05 16:38:31 No respiratory distress /min 02 Sat by Pulse 2020-05-05 16:38:31 100 /min Oximetry Body Mass Index 2020-05-05 16:38:31 49.4 Height 2020-05-05 16:38:31 157.48\\S\\62 Pulse Rate 2020-05-05 16:38:31 152 /min Respiratory Rate 2020-05-05 16:38:31 20 /min Temperature 2020-05-05 16:38:31 37.2\\S\\99.0 Weight 2020-05-05 16:38:31 559484.939\\S\\4320 Respiratory 2020-05-05 14:24:00 No respiratory distress /min 02 Sat by Pulse 2020-05-05 14:24:00 100 /min Oximetry Body Mass Index 2020-05-05 14:24:00 49.4 Height 2020-05-05 14:24:00 157.48\\S\\62 Pulse Rate 2020-05-05 14:24:00 152 /min Respiratory Rate 2020-05-05 14:24:00 20 /min Temperature 2020-05-05 14:24:00 37.2\\S\\99.0 Weight 2020-05-05 14:24:00 404258.939\\S\\4320 02 Sat by Pulse 2020-05-05 13:30:25 100 /min Oximetry Body Mass Index 2020-05-05 13:30:25 49.4 Height 2020-05-05 13:30:25 157.48\\S\\62 Pulse Rate 2020-05-05 13:30:25 152 /min Respiratory Rate 2020-05-05 13:30:25 20 /min Temperature 2020-05-05 13:30:25 37.2\\S\\99.0 Weight 2020-05-05 13:30:25 469075.939\\S\\4320 02 Sat by Pulse 2020-05-05 13:17:41 100 /min Oximetry Body Mass Index 2020-05-05 13:17:41 49.4 Height 2020-05-05 13:17:41 157.48\\S\\62 Pulse Rate 2020-05-05 13:17:41 152 /min Respiratory Rate 2020-05-05 13:17:41 20 /min Temperature 2020-05-05 13:17:41 37.2\\S\\99.0 Weight 2020-05-05 13:17:41 590966.939\\S\\4320 02 Sat by Pulse 2020-05-05 13:15:39 100 /min Oximetry Body Mass Index 2020-05-05 13:15:39 49.4 Height 2020-05-05 13:15:39 157.48\\S\\62 Pulse Rate 2020-05-05 13:15:39 152 /min Respiratory Rate 2020-05-05 13:15:39 20 /min Temperature 2020-05-05 13:15:39 37.2\\S\\99.0 Weight 2020-05-05 13:15:39 826218.939\\S\\4320 WEIGHT 2020-05-05 13:11:00 122.120680 kg HEIGHT 2020-05-05 13:11:00 157.48 cm Procedures Procedure Date / Time Performing Clinician Source Performed HC COMPLETE BLD COUNT 2020-10-22 05:09:00 Lorena Phelan [facility] W/AUTO DIFF URINALYSIS 2020-10-22 05:09:00 Lorena Phelantal COMPREHENSIVE METABOLIC 2020-10-22 05:09:00 Lorena Phelan [facility] PANEL LACTIC ACID, I-STAT 2020-10-22 05:09[facility]00 [facility] QUAL[facility]AT[facility], URINE 2020-10-22 05:09:00 Lorena Phelan [facility] SCREEN ESTIMATED GFR 2020-10-22 05:09:00 Lorena Phelan spital Plan of Care Planned Activity Planned Date Details Comments Source Future Scheduled Test COVID-19 VACCINE (1) [facility] [code = COVID-19 VACCINE (1)] Future Scheduled Test Hepatitis C screening [facility] (procedure) [code = 491618130] Future Scheduled Test Screening for [facility] malignant neoplasm of cervix (procedure) [code = 839934825] Future Scheduled Test INFLUENZA VACCINE [facility] [code = INFLUENZA VACCINE] Encounters Start End Encounter Admission Attending Care Care Encounter Source Date/Time Date/Time Type Type Clinicians Facility Department ID 2020-10-21 2020-10-22 [facility], 1.2.840.1 [id number] Methodi 23:26:00 01:26:00 Lorena [address]Basia [address] 3.430.2.7 Hospit a .3.397054 l .8 2020-10-22 2020-10-22 Travel 1.2.840.1 1.2.156.380 [id number] Methodi 00:00:00 00:00:[address] 3.430.2.7 0.2.7.3.698 Ho spita .3.914562 084.8 l .8 2020-10-21 2020-10-22 Emergency NUSZEN, [facility] 064 [id number] [place] 00:00:00 00:00:00 LORENA [address] 2020-08-28 2020-08-29 Emergency AuSangita nogueira TRAUMA 1.2.840.114 [id number] 13:50:00 10:43:00 [facility] 350.1.13.10 Darron Jules 4.2.7.2.686 [id number] 014 2020-04-27 2020-04-27 Emergency Shant, [facility] 1.2.840.114 [id number] [id number] 20:41:00 23:12:00 Mary Fischer 350.1.13.10 [place] 4.2.7.2.686 Bruin [id number] 084 2020-04-27 2020-04-27 Orders Doctor COLE 1.2.840.114 [id number] 00:00:00 00:00:00 Only Unassigned, KEVYN 350.1.13.10 [facility] 4.2.7.2.686 [id number] 009 2019-05-01 2019-05-01 Emergency PASCUAL [facility] [id number] [place] [address] 00:00:00 00:00:[address] BEAU [address] Results Test Description Test Time Test Comments Results Result Comments Source LACTIC ACID 2020-04-25 02:52:00 Test Item Value Reference Range Interpretation Comme nts LACTIC ACID (test code = LACT) 1.0 mmol/L 0.7-2.0 N COMPREHENSIVE METABOLIC [id number] 02:28:00 Test Item Value Reference Range Interpretation [...] = ALKP) UA RFLX MICR CULT IF [id number] 01:22:00 Test Item Value Reference Range Interpretation [...] URINE: CLEAN CATCHUA RFLX MICR CULT IF [id number] 01:19:00 Test Item Value Reference Range Interpretation [...] V alue reported code = LACT) toFirst Name:ENMANUEL I7767 Last Name:[facility] FABIANA READ BACK AND AURORA Love CBasiaLAB.MG, on , @ 0052. [id number] 00:50:00 Test Item Value Reference Range Interpretation Comments LIPASE (test code = LIP) 54 U/L 23-300 N CBC W/AUTO [id number] 00:49:00 Test Item Value Reference Range Interpretation [...] x10 3/uL 0.0-0.1 N - US RETRO [id number] 00:16:00 [facility] 1995 Sex: F Bruin: ANDREZ St: REG Name: NATIVIDAD GREGG [facility] : 1995 Age/S: 24/F [address] Unit #: [id number] Loc: [place] [address] Phys: Luis Goddard AUTOMOTIVE SERVICE PROFESSIONAL Acct: [id number] Dis Date: Status: REG ER PHONE #: [phone] Exam Date: 04/24/20204 FAX #: [phone] Reason: left flank pain EXAMS: CPT CODE: [id number] US RETRO LTD 06412 EXAM: - US RETRO LTD LOCATION: H57 [...] Leonel Delacruz MD CC: Technologist: Francine Jimenez [facility] RVT Trnscrd Date/Time/By: 04/25/2020 (0016) : By: carrie [email or web address] PAGE 1 Signed Report Bruin: St: REG Name: NATIVIDAD GREGG [facility] Randy : 1995 Age/S: 24/F [address] Unit #: [id number] Loc: [place] [address] Phys: Luis Goddard [employer] SERVICE PROFESSIONAL Acct: [id number] Dis Date: Status: REG ER PHONE #: [phone] Exam Date: 04/24/2020 0005 FAX #: [phone] Reason: left flank pain EXAMS: CPT CODE: [id number] US RETRO LTD 60083 <Continued> Orig Print D/T: S: 04/25/2020 (0019) PAGE 2 Signed ReportCOVID 19 INHOUSE [id number] 21:16:00 Test Item Value Reference Range Interpretation Comments COVID 19 INHOUSE AG NEGATIVE Negative Per manu facturer, (test code = negative result s should [id number]) be treated aspr esumptive and, if inconsi [...] nsistent with COVID-19. - XR CHEST 1 [id number] 20:44:00 [facility] : 1995 Sex: F Name: NATIVIDAD GREGG [facility] : 1995 Age/S: 24 / F [address] Unit #: [id number] Loc: [place] [address] Phys: Anita Kruse MD Acct: [id number] Dis Date: Status: REG ER PHONE #: [phone] Exam Date: 01/18/20202023 FAX #: Reason: Code Sepsis EXAMS: CPT: [id number] XR CHEST 1 V 38065 Fluoro Time: DAP (Gy m2): Air Kerma [...] 1 Signed Report Name: NATIVIDAD GREGG [facility] : 1995 Age/S: 24 / F [address] Unit #: [id number] Loc: [place] [address] Phys: Anita Kruse MD Acct: [id number] Dis Date: Status: REG ER PHONE #: [phone] Exam Date: 01/18/20202023 FAX #: Reason: Code Sepsis EXAMS: CPT: [id number] XR CHEST 1 V 29880 Fluoro Time: DAP (Gy m2): Air Kerma (mGy): <Continued> Technologist: Brandi Clark RT(R)(CT) Trnscb Date/Time: 01/18/2020 (2043) [id number] Orig Print D/T: S: 01/18/2020 (2047) PAGE 2 Signed ReportUA RFLX MICR CULT IF [id number] 20:17:00 Test Item Value Reference Range Interpretation [...] UACULT) Indication for culture: Suprapubic PainBASIC METABOLIC [id number] 20:13:00 Test Item Value Reference Range Interpretation [...] 9.1 MG/DL 8.5-10.1 N Completed by Nursing: HIHEPATIC FUNCTION [id number] 20:13:00 Test Item Value Reference Range Interpretation [...] N code = ALKP) Completed by Nursing: [id number] 20:13:00 Test Item Value Reference Range Interpretation [...] jesse yby method. Completed by Nursing: NOLACTIC [id number] 20:13:00 Test Item Value Reference Range Interpretation Comments LACTIC ACID (test code = LACT) 1.8 mmol/L 0.4-2.0 N CBC W/AUTO [id number] 19:57:00 Test Item Value Reference Range Interpretation [...] NO DIFF/SCN CRITERIA = MDIFF) BASIC METABOLIC [id number] 07:22:00 Test Item Value Reference Range Interpretation [...] 8.7 mg/dL 8.4-10.2 N CA) CBC W/AUTO [id number] 07:03:00 Test Item Value Reference Range Interpretation [...] 0.05 x10 3/uL 0.0-0.1 N BASIC METABOLIC [id number] 05:56:00 Test Item Value Reference Range Interpretation [...] 8.4 mg/dL 8.4-10.2 N CA) CBC W/AUTO [id number] 05:42:00 Test Item Value Reference Range Interpretation [...] *LDL Cholesterol<1 00mg/ dL: Desirable L DL-C gyfdxlihjzwsg87 0-159 mg/dL: Borderli ne High Risk LDL-C ndqdruhrzlfmz98 0-189 mg/dL: High ris k LDL-C concentra [...] DL Cholesterol<1 00mg/dL : Desirable LDL -C emgnfameuhesd20 0-159mg /dL: Borderline High Risk LDL-C lsynmkmciudkm62 0-189mg /dL: High risk LDL-C concentration H DL-LDL Cholesterol is affected by a n umber of factors such as smoking, age an d sex.~~~~~~~~~~~ ~~~~~~~ ~~~~~~~~~~~~~~~ ~~~~~~~ ~~~~~~~~~~~~~~~ ~~~~~ LACTIC [id number] 17:52:00 Test Item Value Reference Range Interpretation Comments LACTIC ACID (test code = LACT) 1.6 mmol/L 0.7-2.0 N Coronavirus 2019 nCoV [id number] 17:03:00 Test Item Value Reference Range Interpretation Comments Coronavirus 2018 Negative NEGATIVE This test h as been nCoV Bedside (test authorize d by FDA under code = [id number]) an EUA for use byauthorized laboratories; This [...] and/o r diagnosis of CO VID-19 under Lyjvgne57 4(b)(1) of the Act, 21 U.S .C. 360bbb-3(b)(1), unless theauthorizatio n is terminated or r evoked sooner. LACTIC [id number] 16:44:00 Test Item Value Reference Range Interpretation Comments LACTIC ACID (test 2.1 mmol/L 0.7-2.0 HH Critical V alue reported code = LACT) toFirst Name:UTE D6486 Last Name:CHEL JUNG READ BACK AND FirstString C.LAB.LAS1, on 01/15/20, @ 164 4. UA RFLX MICR CULT IF [id number] 16:42:00 Test Item Value Reference Range Interpretation [...] for culture: Dysuria/FrequencySOURCE OF URINE: CLEAN CATCHLACTIC [id number] 15:54:00 Test Item Value Reference Range Interpretation Comments LACTIC ACID (test 2.6 mmol/L 0.7-2.0 HH Critical V alue reported code = LACT) toFirst Name:HI I8356 Last Name:CHEL TS READ BACK AND FirstString C.LAB.LAS1, on 01/15/20, @ 155 4. BASIC METABOLIC [id number] 15:50:00 Test Item Value Reference Range Interpretation [...] 9.6 mg/dL 8.4-10.2 N CA) LIVER FUNCTION [id number] 15:50:00 Test Item Value Reference Range Interpretation [...] U/L 38-126 N (test code = ALKP) [id number] 15:50:00 Test Item Value Reference Range Interpretation Comments LIPASE (test code = LIP) 47 U/L 23-300 N PROTHROMBIN [id number] 15:50:00 Test Item Value Reference Range Interpretation [...] - 3.0 Atrial fibrillation 2.0 - 3.03. Corporate Real Estate Specialist al prosthetic valv es (high risk) 2.5 - 3.5 * If oral anticoagulant t herapy is elected to preventrecurren t myocardial infa rction, an INR of 2.5-3 .5 isrecommended, consistent with Food and Drug Administrationr ecommen dations. THROMBOPLASTIN TIME [id number] 15:50:00 Test Item Value Reference Range Interpretation Comments THROMBOPLASTIN TIME 31.8 SECONDS 23.4-37.0 N Therap eutic Range PARTIAL (test code = for Hep katherine PTT) EFFECTIVE Heparin IU/mL aPT T Seconds0.3 64.30.7 88.8 BASIC METABOLIC [id number] 15:49:00 Test Item Value Reference Range Interpretation [...] 9.6 mg/dL 8.4-10.2 N CA) LIVER FUNCTION [id number] 15:49:00 Test Item Value Reference Range Interpretation [...] U/L 38-126 N (test code = ALKP) [id number] 15:49:00 Test Item Value Reference Range Interpretation Comments LIPASE (test code = LIP) U/L 23-300 CBC W/AUTO [id number] 15:30:00 Test Item Value Reference Range Interpretation [...] 3/uL 0.0-0.1 N - XR CHEST 1 [id number] 15:03:00 [facility] : 1995 Sex: F Bruin: ANDREZ St: DIS Name: NATIVIDAD GREGG [facility] : 1995 Age/S: 24/F [address] Unit #: [id number] Loc: [address] [place] [address] Phys: Victorino Schofield Acct: [id number] Dis Date: [id number] Status: DIS IN PHONE #: [phone] Exam Date: 01/15/2020 8961 FAX #: [phone] Reason: CODE SEPSIS EXAMS: CPT CODE: [id number] XR CHEST 1 V 55887 EXAM: Portable chest x-ray, one view INDICATION: [...] CC: Technologist: HARJEET CASE; STUDENT 2ND YEAR Trnrird Date/Time/By: 01/15/2020 (1927) : By: Jaydon PAGE 1 Signed Report Bruin: St: DIS Name: NATIVIDAD GREGG [facility] : 1995 Age/S: 24/F [address] Unit #: [id number] Loc: [address] [place] [address] Phys: Mason Schofield Acct: [id number] Dis Date: [id number] Status: DIS IN PHONE #: [phone] Exam Date: 01/15/2020 8803 FAX #: [phone] Reason: CODE SEPSIS EXAMS: CPT CODE: [id number] XR CHEST 1 V 31922 <Continued> Orig Print D/T: S: 01/15/2020 (9209) PAGE 2 Signed Report- XR CHEST 1 [id number] 15:03:00[facility] : 1995 Sex: F Bruin: St: PRE Name: NATIVIDAD GREGG [facility] Randy : 1995 Age/S: 24/F [address] Unit #: [id number] Loc: [place] [address] Phys: Victorino Schofield Acct: [id number] Dis Date: Status: PRE ER PHONE #: [phone] Exam Date: 01/15/2020 1450 FAX #: [phone] Reason: CODE SEPSIS EXAMS: CPT CODE: [id number] XR CHEST 1 V 30862 EXAM: Portable chest x-ray, one view INDICATION: [...] CC: Technologist: MANPREET COSBY; STUDENT 2ND YEAR Trnrird Date/Time/By: 01/15/2020 (0057) : By: Jaydon PAGE 1 Signed Report Bruin: St: PRE Name: NATIVIDAD GREGG : 1995 Age/S: 24/F [address] Unit #: [id number] Loc: [place] [address] Phys: Mason Schofield Acct: [id number] Dis Date: Status: PRE ER PHONE #: [phone] Exam Date: 01/15/2020 1450 FAX #: [phone] Reason: CODE SEPSIS EXAMS: CPT CODE: [id number] XR CHEST 1 V 69254 <Continued> Orig Print D/T: S: 01/15/2020 (1507) PAGE 2 Signed ReportLACTIC [id number] 01:50:00 Test Item Value Reference Range Interpretation Comments LACTIC ACID (test code = LACT) 1.2 mmol/L 0.7-2.0 N COMPREHENSIVE METABOLIC [id number] 00:45:00 Test Item Value Reference Range Interpretation [...] N (test code = ALKP) HCG SERUM [id number] 00:45:00 Test Item Value Reference Range Interpretation Comments HCG SERUM QUAL (test code = HCGQL) NEGATIVE NEGATIVE LACTIC [id number] 00:13:00 Test Item Value Reference Range Interpretation Comments LACTIC ACID (test 2.3 mmol/L 0.7-2.0 HH Critical V alue reported code = LACT) toFirst Name:AYAN K9646 Last Name:CHEL JUNG READ BACK AND AURORA ShuklaLAB.WR, on , @ 0013. UA RFLX MICR CULT IF [id number] 00:06:00 Test Item Value Reference Range Interpretation [...] Dysuria/FrequencySOURCE OF URINE: CLEAN CATCH COMPREHENSIVE METABOLIC [id number] 23:43:00 Test Item Value Reference Range Interpretation [...] used to treat thrombocytopeni a andaplastic ane albertnia)." BILIRUBIN CONJUGATED 0 mg/dL 0-0.3 N "A [...] N (test code = ALKP) HCG SERUM [id number] 23:43:00 Test Item Value Reference Range Interpretation Comments HCG SERUM QUAL (test code = HCGQL) NEGATIVE CBC W/AUTO [id number] 23:38:00 Test Item Value Reference Range Interpretation [...] BA#) 0.06 x10 3/uL 0.0-0.1 N LACTIC [id number] 19:19:00 Test Item Value Reference Range Interpretation Comments LACTIC ACID (test code = LACT) 1.6 mmol/L 0.7-2.0 N UA RFLX MICR CULT IF [id number] 18:41:00 Test Item Value Reference Range Interpretation [...] Flank PainSOURCE OF URINE: CLEAN CATCHBASIC METABOLIC [id number] 18:39:00 Test Item Value Reference Range Interpretation [...] 10.0 mg/dL 8.4-10.2 N CA) LIVER FUNCTION [id number] 18:39:00 Test Item Value Reference Range Interpretation [...] U/L 38-126 N (test code = ALKP) [id number] 18:39:00 Test Item Value Reference Range Interpretation Comments LIPASE (test code = LIP) 81 U/L 23-300 N BASIC METABOLIC [id number] 18:37:00 Test Item Value Reference Range Interpretation [...] 10.0 mg/dL 8.4-10.2 N CA) LIVER FUNCTION [id number] 18:37:00 Test Item Value Reference Range Interpretation [...] U/L 38-126 N (test code = ALKP) [id number] 18:37:00 Test Item Value Reference Range Interpretation Comments LIPASE (test code = LIP) U/L 23-300 - CT ABD PELVIS W/O [id number] 18:36:00 [facility] 1995 Sex: F FAX: Mayelin Santos [phone] Bruin: ANDREZ St: PRE Name: CRISTINONATIVIDAD BUSTAMANTE DESEAN [facility] : 1995 Age/S: 24/F [address] Unit: [id number] Loc: [place] [address] Phys: Mayelin Tyler AUTOMOTIVE SERVICE PROFESSIONAL Acct: [id number] Dis Date: Status: PRE ER PHONE #: [phone] Exam Date: 01/13/2020 1820 FAX #: [phone] Reason: flank pain EXAMS: CPT CODE: [id number] CT ABD PELVIS W/O CONT 30982 Examination: Abdomen and pelvic CT without contrast [...] 1 Signed Report (CONTINUED) FAX: Mayelin Santos [phone] Bruin: St: PRE--------- Name: NATIVIDAD GREGG [facility] : 1995 Age/S: 24/F [address] Unit: [id number] Loc: [place] [address] Phys: Mayelin Mesa AUTOMOTIVE SERVICE PROFESSIONAL Acct: [id number] Dis Date: Status: PRE ER PHONE #: [phone] Exam Date: 01/13/2020 1820 FAX #: [phone] Reason: flank pain EXAMS: CPT CODE: [id number] CT ABD PELVIS W/O CONT 49485 <Continued> CC: Mayelin Tyler NP Technologist: Rosa Savage Trnscrd Dt/Tm: 01/13/2020 (1835) MistyJH12 Orig Print D/T: S: 01/13/2020 (1838 PAGE 2 Signed ReportUA RFLX MICR CULT [...] Flank PainSOURCE OF URINE: CLEAN CATCHCBC W/AUTO [id number] 18:19:00 Test Item Value Reference Range Interpretation [...]
[2020-10-23 18:13] LABS: Urine Blood Trace-intact (Negative); Urine Glucose Negative (Negative); Urine Protein Trace (Negative); Urine Specific Gravity >=1.030 (1.005-1.030)
[2020-10-23 18:34] LABS: Absolute Lymphocytes (CBC) 2.6 K/uL (0.7-4.9); Basophils % 0.7 % (0-1.3); Hematocrit 31.2 % (36.0-45.0); Lymphocytes % 28.4 % (15.3-44.8); MPV 7.8 fL (7.6-11.3); RBC Red Blood Cell Count 3.96 M/uL (3.86-4.86)
[2020-10-23 18:38] LABS: BUN Blood Urea Nitrogen 7 mg/dL (7-18); Bicarbonate 23 mmol/L (21-32); Glucose Level 94 mg/dL (74-106); Potassium 3.7 mmol/L (3.5-5.1); Sodium Level 142 mmol/L (136-145)
[2020-10-23 18:40] LABS: Urine Specific Gravity/Preg >1.030 (1.005-1.030)
[2020-10-23] MEDS ORDERED: MORPHINE 4 MG/ML SYR ONE (18:41)
[2020-10-23] MEDS ORDERED: ONDANSETRON 4 MG/2 ML VIAL ONE (18:41)
[2020-10-23] MEDS ORDERED: HYDROMORPHONE HCL 1 MG/ML INJ ONE ×2 (19:03→20:08)
--- NOTE | 2020-10-23 19:34 | RAD REPORT ---
EXAM DESCRIPTION: CT - Spine Lumbar W/Cont - 10/23/2020 7:06 pm CLINICAL HISTORY: Radiculopathy. abscess COMPARISON: Abdomen Pelvis W Contrast dated 08/28/2020 TECHNIQUE: Axial noncontrast CT imaging of the lumbar spine was performed with coronal and sagittal re-formatted images. All CT scans are performed using dose optimization technique as appropriate and may include automated exposure control or mA/KV adjustment according to patient size. FINDINGS: No acute lumbar spine fracture seen. No aggressive marrow pattern or malalignment. Paraspinal tissues are normal in thickness. No hematoma seen. Small fluid collection is seen in the subcutaneous fat just superficial to the left paraspinal muscul ature measuring 24 x 23 mm. This is significantly smaller than the 08/28/2020 study. This may represe nt small residual seroma. IMPRESSION: Small 24 x 23 mm fluid collection in the subcutaneous fat is significantly smaller jess red to 08/28/2020 study. This may represent a small residual seroma. Abscess is doubtful but cannot b e completely ruled out.
--- NOTE | 2020-10-23 19:55 | EDPHYS ---
Physician Documentation [facility] Name: Ana Lilia Kline Age: 25 yrs Sex: Female : 1995 Arrival Date: 10/23/2020 Time: 17:03 Bed 12 Private MD: ED Physician Indra Yee HPI: 10/23 19:40 This 25 yrs old Female presents to ER via Ambulatory with complaints of Post jr8 Surgical Pain - Issue. 19:40 Onset: The symptoms/episode began/occurred acutely. Associated signs and symptoms: The jr8 patient has no apparent associated signs or symptoms. Modifying factors: The patient symptoms are alleviated by nothing, the patient symptoms are aggravated by movement. It is unknown whether or not the patient has had similar symptoms in the past. The patient has not recently seen a physician. Patient stated since she has had her microdiscectomy she has been battling with seromas and abscesses to the paraspinal region. Last drain was a little over a week ago. Patient stated that she went to pick somebody up and felt a pop. Since then she has been in moderate amount of pain with numbness coming down the right leg. 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; - Immunization history:: Adult Immunizations up to date, Client reports receiving the 2nd dose of the Covid vaccine, Date received: September 2020 [email or web address] Client reports receiving the 1st dose of the Covid vaccine, September 2020 [email or web address]. - Social history:: Smoking status: Patient reports the use of cigarette tobacco products, smokes one-half pack cigarettes per day. ROS: 19:40 Constitutional: Negative for fever, chills, and weight loss, Cardiovascular: Negative jr8 for chest pain, palpitations, and edema, Respiratory: Negative for shortness of breath, cough, wheezing, and pleuritic chest pain, Abdomen/GI: Negative for abdominal pain, nausea, vomiting, diarrhea, and constipation, MS/Extremity: Negative for injury and deformity, Skin: Negative for injury, rash, and discoloration. 19:40 Back: Positive for pain at rest, pain with movement, radiated pain. 19:40 Neuro: Positive for numbness, of the right leg. Exam: 19:40 Neck: Trachea midline, no thyromegaly or masses palpated, and no cervical jr8 lymphadenopathy. Supple, full range of motion without nuchal rigidity, or vertebral point tenderness. No Meningismus. Chest/axilla: Normal chest wall appearance and motion. Nontender with no deformity. No lesions are appreciated. Cardiovascular: Tachycardic with a normal S1 and S2. No gallops, murmurs, or rubs. Normal PMI, no JVD. No pulse deficits. Respiratory: Lungs have equal breath sounds bilaterally, clear to auscultation and percussion. No rales, rhonchi or wheezes noted. No increased work of breathing, no retractions or nasal flaring. Abdomen/GI: Soft, non-tender, with normal bowel sounds. No distension or tympany. No guarding or rebound. No evidence of tenderness throughout. Skin: Warm, dry with normal turgor. Normal color with no rashes, no lesions, and no evidence of cellulitis. MS/ Extremity: Pulses equal, no cyanosis. Neurovascular intact. Full, normal range of motion. Neuro: Awake and alert, GCS 15, oriented to person, place, time, and situation. Cranial nerves II-XII grossly intact. Motor strength 5/5 in all extremities. Sensory grossly intact. Cerebellar exam normal. Normal gait. 19:40 Back: ROM is normal, normal spinal alignment noted, Only moderately tender over the soft tissue of the lower lumbar region over her incisional site. No erythema noted. No dehiscence of surgical site noted. Appears well-healed. Minimal spinal tenderness noted.. Vital Signs: 17:37 BP 127 / 73; Pulse 136; Resp 20; Temp 96.7(TE); Pulse Ox 100% ; Weight 127.01 kg (R); kg Height 5 ft. 2 in. (157.48 cm) (R); Pain 9/10; 18:18 BP 122 / 78; Pulse 130; Resp 18; Temp 97.2(TE); Pulse Ox 100% on R/A; mh5 20:13 BP 136 / 89 RA Standing (auto/reg); Pulse 136 MON; Resp 20; Temp 97.6; Pulse Ox 99% ; ds4 17:37 Body Mass Index 51.21 (127.01 kg, 157.48 cm) kg MDM: 17:51 Patient medically screened. jr8 19:40 Data reviewed: vital signs, nurses notes, lab test result(s), radiologic studies, CT jr8 scan. Data interpreted: Pulse oximetry: on room air is 100 %. Interpretation: normal. Counseling: I had a detailed discussion with the patient and/or guardian regarding: the historical points, exam findings, and any diagnostic results supporting the discharge/admit diagnosis, lab results, radiology results, the need for outpatient follow up, a neurosurgeon, to return to the emergency department if symptoms worsen or persist or if there are any questions or concerns that arise at home. ED course: Patient has minimal improvement with pain. Discussed with patient that there is no defined abscess collection at this time. Fluid level from the previous seroma has significantly decreased in size. No other acute spinal or soft tissue findings. Labs unremarkable. Needs to follow-up back with her neurosurgeon at this time. If worse to come back for further evaluation. Patient good plan at this time. 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 Patient has had multiple pain prescriptions in past. Last jr8 fill 09/20/20. She is currently not on a pain contract. Has taken her doses appropriately based on time intervals. Only concern is multiple prescribers in past. Patient is in moderate continued pain with elevated HR. Will anime artist her very limited prescription and counseled her on need for pain management at this point. 10/23 17:51 Order name: CBC with Diff; Complete Time: 19:05 jr8 10/23 17:51 Order name: Basic Metabolic Panel; Complete Time: 19:05 jr8 10/23 17:59 Order name: Spine Lumbar W/Cont; Complete Time: 19:40 EDMS 10/23 18:13 Order name: Urine --Ancillary (enter results); Complete Time: 19:05 bd 10/23 18:13 Order name: Urine Dipstick-Ancillary; Complete Time: 18:17 EDMS 10/23 17:51 Order name: IV Start; Complete Time: 18:17 jr8 10/23 17:51 Order name: Urine Dipstick-Ancillary (obtain specimen); Complete Time: 18:13 jr8 10/23 17:51 Order name: Urine Test (obtain specimen); Complete Time: 18:13 jr8 Administered Medications: 18:28 Drug: morphine 4 mg Route: IVP; Site: left antecubital; iw 18:28 Drug: Zofran (Ondansetron) 4 mg Route: IVP; Site: left antecubital; iw 18:46 Drug: Dilaudid (HYDROmorphone) 1 mg Route: IVP; Site: left antecubital; iw 19:45 Follow up: Response: No change in condition lp1 19:55 Drug: Dilaudid (HYDROmorphone) 1 mg Route: IVP; Site: left antecubital; lp1 20:34 Follow up: Response: Pain is decreased lp1 20:33 Drug: [place] (HYDROcodone-acetaminophen) 10 mg-325 mg 1 tabs Route: PO; lp1 20:34 Follow up: Response: Medication administered at discharge. lp1 Disposition: 10/24 19:55 Co-signature as Attending Physician, Indra Yee MD. rn Disposition Summary: 10/23/20 19:55 Discharge Ordered Location: Home [facility] Problem: new jr8 Symptoms: have improved jr8 Condition: Stable jr8 Diagnosis - Postprocedural seroma of a musculoskeletal structure following a musculoskeletal jr8 system procedure - Low back pain jr8 Followup: jr8 - With: Private Physician - When: 2 - 3 days - Reason: Recheck today's complaints, Continuance of care, Re-evaluation by your physician Discharge Instructions: - Discharge Summary Sheet jr8 - Acute Back Pain, Adult jr8 - Seroma jr8 - Radicular Pain jr8 Forms: - Medication Reconciliation Form jr8 - Thank You Letter jr8 - Antibiotic Education jr8 - Prescription Opioid Use jr8 Prescriptions: - acetaminophen-codeine 300-15 mg Oral tablet - take 2 tablet by ORAL route every 6 hours as needed; 12 tablet; Refills: 0, jr8 Product Selection Permitted Signatures: Dispatcher [employer] Annalee Bradley, RN RN Indra Bolivar MD MD rn Pena, Laura, RN RN lp1 Hardeep Caldwell PA PA jr8 Mayelin nKight RN RN kg
--- NOTE | 2020-10-23 19:55 | ER ---
Nurse's Notes [facility] Name: Ana Lilia Kline Age: 25 yrs Sex: Female : 1995 Arrival Date: 10/23/2020 Time: 17:03 Bed 12 Private MD: Diagnosis: Postprocedural seroma of a musculoskeletal structure following a musculoskeletal system procedure;Low back pain Presentation: 10/23 17:37 Chief complaint: Patient states: Pt had I\T\D on 10/15/20 it was pushing against L5-S1 kg and neuro sx stated to keep close eye on it. Pt stated she losing feeling in right leg and loss of bladder control. Pt stated she picked up her daughter heard a pop and had immediate stabbing pain at 16:30. Coronavirus screen: Client denies travel out of the [place] in the last 14 days. At this time, unable to obtain information related to travel outside the [place] Ebola Screen: Patient negative for fever greater than or equal to 101.5 degrees Fahrenheit, and additional compatible Ebola Virus Disease symptoms Patient denies exposure to infectious person. Patient denies travel to an Ebola-affected area in the 21 days before illness onset. Initial Sepsis Screen: Does the patient meet any 2 criteria? No. Patient's initial sepsis screen is negative. Does the patient have a suspected source of infection? No. Patient's initial sepsis screen is negative. Risk Assessment: Do you want to hurt yourself or someone else? Patient reports no desire to harm self or others. Onset of symptoms was October 23, 2020 at 16:30. 17:37 Method Of Arrival: Ambulatory kg 17:37 Acuity: KATY 3 kg Triage Assessment: 17:42 General: Appears distressed, Behavior is anxious, restless. Pain: Complains of pain in kg lumbar area, low back area, left low back and right low back. Respiratory: Reports pain with movement Onset: The symptoms/episode began/occurred today, the patient has severe shortness of breath. 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 kg Historical: - Allergies: 17:42 Demerol; kg 17:42 Doxycycline; kg 17:42 Haldol; kg 17:42 Reglan; kg 17:42 Toradol; kg 17:42 Zithromax; kg - Home Meds: 17:42 Cymbalta Oral [Active]; Flexeril Oral [Active]; gabapentin Oral [Active]; Suboxone 8-2 kg mg sublingual subl 1 tab once daily [Active]; - PMHx: 17:42 Asthma; Endometrosis; polycystic ovarian disease; sudotumor ceribri; Kidney stones; kg - PSHx: 17:42 Right fallopen tube removed from torson; Cholecystectomy; Kidney stent placed and kg removed; [facility]; - Immunization history:: Adult Immunizations up to date, Client reports receiving the 2nd dose of the Covid vaccine, Date received: September 2020 [employer] Client reports receiving the 1st dose of the Covid vaccine, September 2020 [employer]. - Social history:: Smoking status: Patient reports the use of cigarette tobacco products, smokes one-half pack cigarettes per day. Screenin:05 Abuse screen: Denies threats or abuse. Denies injuries from another. Nutritional lp1 screening: No deficits noted. Tuberculosis screening: No symptoms or risk factors identified. Fall Risk None identified. Assessment: 19:40 Reassessment: Patient pacing in room, reports pain to low back 10/10 on pain scale; lp1 Provider notified, verbal order for Dilaudid 1 mg IV now. 20:35 General: Appears in no apparent distress. Behavior is calm. Pain: Complains of pain in lp1 low back Pain currently is 7 out of 10 on a pain scale. Neuro: Level of Consciousness is awake, alert, obeys commands, Oriented to person, place, time, situation, Gait is steady. Cardiovascular: Patient's skin is warm and dry. Respiratory: Airway is patent Respiratory effort is even, unlabored. GI: No signs and/or symptoms were reported involving the gastrointestinal system. : No signs and/or symptoms were reported regarding the genitourinary system. EENT: No signs and/or symptoms were reported regarding the EENT system. Derm: Skin is pink, warm \T\ dry. Musculoskeletal: No deficits noted. Vital Signs: 17:37 BP 127 / 73; Pulse 136; Resp 20; Temp 96.7(TE); Pulse Ox 100% ; Weight 127.01 kg (R); kg Height 5 ft. 2 in. (157.48 cm) (R); Pain 9/10; 18:18 BP 122 / 78; Pulse 130; Resp 18; Temp 97.2(TE); Pulse Ox 100% on R/A; mh5 20:13 BP 136 / 89 RA Standing (auto/reg); Pulse 136 MON; Resp 20; Temp 97.6; Pulse Ox 99% ; ds4 17:37 Body Mass Index 51.21 (127.01 kg, 157.48 cm) kg ED Course: 17:03 Patient arrived in ED. ds1 17:42 Triage completed. kg 17:42 Arm band placed on right wrist. kg 17:51 Hardeep Caldwell PA is PHCP. jr8 17:51 Indra Yee MD is Attending Physician. jr8 18:00 Annalee Feliciano, RN is Primary Nurse. iw 18:13 Spine Lumbar W/Cont Sent. mh5 18:14 Patient has correct armband on for positive identification. Bed in low position. Call 5 light in reach. Warm blanket given. Pulse ox on. NIBP on. 18:14 Urine Dipstick-Ancillary Sent. mh5 18:14 Urine collected: clean catch specimen, cloudy. mh5 18:36 Radiology exam delayed due to patient states she cannot lay down or sit down for scan nj at this time, notified CIARRA Mantilla. 19:06 Spine Lumbar W/Cont In Process Unspecified. EDMS 19:21 Primary Nurse role handed off by Annalee Feliciano, RN mw2 20:04 Yoselyn Verduzco, CIARRA is Primary Nurse. lp1 20:35 No provider procedures requiring assistance completed. IV discontinued, No lp1 redness/swelling at site. Pressure dressing applied. Administered Medications: 18:28 Drug: morphine 4 mg Route: IVP; Site: left antecubital; iw 18:28 Drug: Zofran (Ondansetron) 4 mg Route: IVP; Site: left antecubital; iw 18:46 Drug: Dilaudid (HYDROmorphone) 1 mg Route: IVP; Site: left antecubital; iw 19:45 Follow up: Response: No change in condition lp1 19:55 Drug: Dilaudid (HYDROmorphone) 1 mg Route: IVP; Site: left antecubital; lp1 20:34 Follow up: Response: Pain is decreased lp1 20:33 Drug: [place] (HYDROcodone-acetaminophen) 10 mg-325 mg 1 tabs Route: PO; lp1 20:34 Follow up: Response: Medication administered at discharge. lp1 Outcome: 19:55 Discharge ordered by . manan 20:36 Discharged to home ambulatory. lp1 20:36 Condition: good 20:36 Discharge instructions given to patient, Instructed on discharge instructions, follow up and referral plans. medication usage, Demonstrated understanding of instructions, follow-up care, medications, Prescriptions given X 1. 20:36 Patient left the ED. lp1 Signatures: Dispatcher [employer] EDPR Carmen Bassett ds1 Annalee Feliciano, RN RN iw Yoselyn Verduzco RN RN lp1 Hardeep Caldwell PA PA jr8 Bernardino Marx ds4 Conrad Amezcua Maria Chava Redding 2 Mayelin Knight, CIARRA RN kg
[2020-10-23 20:46] VITALS: BP 136/89; TEMP 97.6; O2SAT 99
[2020-10-23] MEDS ORDERED: HYDROCODONE/APAP 10/325 TAB ONE (20:53)
== END 2020-10-23 20:36 | disposition home or self-care (01) ==
LOC: ER 17:02
DX: M96.842 Postprocedural seroma of a musculoskeletal structure following a musculoskeletal system procedure (principal); F17.210 Nicotine dependence, cigarettes, uncomplicated; Z88.1 Allergy status to other antibiotic agents; Z88.5 Allergy status to narcotic agent; Z88.6 Allergy status to analgesic agent; Z88.8 Allergy status to other drugs, medicaments and biological substances
CPT/HCPCS: 85025; 80048; 36415; 81025; 81003; 72132; 96375; 96374; 99284; Q9967; J1170 ×2; J2405

== ENCOUNTER 2020-11-22 11:32 | Emergency (ER) | payer OTHER ==
--- OUTSIDE RECORDS SUMMARY | 2020-11-22 11:37 | XMS REPORT | Continuity of Care Document ---
:1995 Author Organization [facility] t Address [address] [place] [address] Care Team Providers Name Role Phone Provider Primary Care Physician Unavailable DulceM aria Phelan DO Attending Clinician Yoselyn Doty MD Attending Clinician Leonardo CASTILLO Attending Clinician Berkley Jules MD Attending Clinician Shant MURRAY Attending Clinician Doctor Unassigned, Name Attending Clinician Unavailable Payers Payer Name Policy Type Policy Number Effective Date Expiration Date S ource Problems This patient has no known problems. Allergies, Adverse Reactions, Alerts Allergy Allergy Status Severity Reaction(s) Onset Inactive Treating Comm ents Source Name Type Date Date Clinician Unable DA Active U [facility] to 2-20 Assess 00:00: 00 metoclop DA Active U 2019- [facility] ramide 1- [facility] 00:00: d 00 [facility] doxycycl DA Active MO 2019- [facility] ine 1- [facility] 00:00: d 00 [facility] Center azithrom DA Active MO 2019- [facility] ycin 03-16 [facility] 00:00: d 00 Medical [place] Azithrom Propensi Active Anaphylaxis 2020-0 M ethodi [...] s to drug doxycycl DA Active SV 2016- [facility] ine 2- Clear 00:00: Ng 00 [facility] Doxycycl Drug Active [facility] Allergy Breath 1[facility]17 [facility]: Medical [address] [place] [address] Azithrom Drug Active [facility] Allergy Breath 1-17 [facility]: Medical 00 [place] azithrom DA Active SV 2012-0 [facility] ycin 5 Clear 00:00: Ng 00 [facility] Social History Social Habit Start Date Stop Date Quantity Comments Source History SDVA [facility] Alcohol Std Drinks Hospit al History SDVA [facility] Alcohol Binge Hospital History of tobacco Cigarette Smoker [facility] use Hospital Exposure to Not sure [facility] SARS-CoV-2 (event) Hospit al Cigarette 2020-10-21 2020-10-21 [facility] pack-years 00:00:00 00:00:00 Hospital Tobacco use and 2020-10-21 2020-10-21 Never used Congregation exposure 00:00:00 00:00:00 Hospital Alcohol intake 2020-10-21 2020-10-21 Lifetime Congregation 00:00:00 00:00:00 non-drinker Hospital (finding) History SDOH 2020-10-21 2020-10-21 1 [facility] Alcohol Frequency 00:00:00 00:00:00 Hospita l Cigarettes smoked 2020-10-21 2020-10-[address] current [facility] Reported Sex Assigned At [birth year] Congregation 00:00:00 00:00:00 Hospital Smoking Status Start Date Stop Date Source Former smoker 2020-10-21 00:00:00 2020-10-21 00:00:00 [facility] Current every day 2016-04-01 00:00:[address] [facility] Medications Ordered Filled Start Stop Current Ordering Indication Dosage Frequency Signature Comments Components Source Medication Medication Date Date Medication? Clinician (SIG) Name Name ACETAZOLAMI Yes Take by [facility] -[facility] No known No [facility] No known No [facility] Vital Signs Vital Name Observation Time Observation Value Comments Source Body height 2020-10-22 04:27:00 157.5 cm [facility] Body weight 2020-10-22 04:27:00 127.007 kg 280 [facility] BMI 2020-10-22 04:27:00 51.21 kg/m2 [facility] Systolic blood 2020-10-22 04:24:53 155 mm[Hg] Method ist pressure [facility] Diastolic blood 2020-10-22 04:24:53 78 mm[Hg] [facility] pressure [facility] Heart rate 2020-10-22 04:24:53 128 /min [facility] Body temperature 2020-10-22 04:24:53 36 Martina [facility] Respiratory rate 2020-10-22 04:24:53 20 /min [facility] Oxygen saturation in 2020-10-22 04:24:53 98 /min [facility] Arterial blood by Hospital Pulse oximetry Respiratory 2020-05-07 07:49:50 No respiratory distress /min 02 Sat by Pulse 2020-05-07 07:49:50 100 /min Oximetry Body Mass Index 2020-05-07 07:49:50 49.4 Height 2020-05-07 07:49:50 157.48\\S\\62 Pulse Rate 2020-05-07 07:49:50 87 /min Respiratory Rate 2020-05-07 07:49:50 18 /min Temperature 2020-05-07 07:49:50 37\\S\\98.6 Weight 2020-05-07 07:49:50 554219.939\\S\\4320 Respiratory 2020-05-05 23:26:04 No respiratory distress /min 02 Sat by Pulse 2020-05-05 23:26:04 100 /min Oximetry Body Mass Index 2020-05-05 23:26:04 49.4 Height 2020-05-05 23:26:04 157.48\\S\\62 Pulse Rate 2020-05-05 23:26:04 87 /min Respiratory Rate 2020-05-05 23:26:04 18 /min Temperature 2020-05-05 23:26:04 37\\S\\98.6 Weight 2020-05-05 23:26:04 006845.939\\S\\4320 Respiratory 2020-05-05 16:38:31 No respiratory distress /min 02 Sat by Pulse 2020-05-05 16:38:31 100 /min Oximetry Body Mass Index 2020-05-05 16:38:31 49.4 Height 2020-05-05 16:38:31 157.48\\S\\62 Pulse Rate 2020-05-05 16:38:31 152 /min Respiratory Rate 2020-05-05 16:38:31 20 /min Temperature 2020-05-05 16:38:31 37.2\\S\\99.0 Weight 2020-05-05 16:38:31 957846.939\\S\\4320 Respiratory 2020-05-05 14:24:00 No respiratory distress /min 02 Sat by Pulse 2020-05-05 14:24:00 100 /min Oximetry Body Mass Index 2020-05-05 14:24:00 49.4 Height 2020-05-05 14:24:00 157.48\\S\\62 Pulse Rate 2020-05-05 14:24:00 152 /min Respiratory Rate 2020-05-05 14:24:00 20 /min Temperature 2020-05-05 14:24:00 37.2\\S\\99.0 Weight 2020-05-05 14:24:00 837681.939\\S\\4320 02 Sat by Pulse 2020-05-05 13:30:25 100 /min Oximetry Body Mass Index 2020-05-05 13:30:25 49.4 Height 2020-05-05 13:30:25 157.48\\S\\62 Pulse Rate 2020-05-05 13:30:25 152 /min Respiratory Rate 2020-05-05 13:30:25 20 /min Temperature 2020-05-05 13:30:25 37.2\\S\\99.0 Weight 2020-05-05 13:30:25 436632.939\\S\\4320 02 Sat by Pulse 2020-05-05 13:17:41 100 /min Oximetry Body Mass Index 2020-05-05 13:17:41 49.4 Height 2020-05-05 13:17:41 157.48\\S\\62 Pulse Rate 2020-05-05 13:17:41 152 /min Respiratory Rate 2020-05-05 13:17:41 20 /min Temperature 2020-05-05 13:17:41 37.2\\S\\99.0 Weight 2020-05-05 13:17:41 283149.939\\S\\4320 02 Sat by Pulse 2020-05-05 13:15:39 100 /min Oximetry Body Mass Index 2020-05-05 13:15:39 49.4 Height 2020-05-05 13:15:39 157.48\\S\\62 Pulse Rate 2020-05-05 13:15:39 152 /min Respiratory Rate 2020-05-05 13:15:39 20 /min Temperature 2020-05-05 13:15:39 37.2\\S\\99.0 Weight 2020-05-05 13:15:39 530574.939\\S\\4320 WEIGHT 2020-05-05 13:11:00 122.992430 kg HEIGHT 2020-05-05 13:11:00 157.48 cm Procedures Procedure Date / Time Performing Clinician Source Performed HC COMPLETE BLD COUNT 2020-10-22 05:09:00 Lorena Phelan [facility] W/AUTO DIFF URINALYSIS 2020-10-22 05:09:00 Lorena Phelan spital COMPREHENSIVE METABOLIC 2020-10-22 05:09:00 Lorena Phelan [facility] PANEL LACTIC ACID, I-STAT 2020-10-22 05:09:00 Lorena Phelan [facility] HCG QUALITATIVE, URINE 2020-10-22 05:09:00 Lorena Phelan [facility] SCREEN ESTIMATED GFR 2020-10-22 05:09:00 Lorena Phelan spital Plan of Care Planned Activity Planned Date Details Comments Source Future Scheduled Test COVID-19 VACCINE (1) [facility] [code = COVID-19 VACCINE (1)] Future Scheduled Test Hepatitis C screening [facility] (procedure) [code = 126148113] Future Scheduled Test Screening for [facility] malignant neoplasm of cervix (procedure) [code = 836617567] Future Scheduled Test INFLUENZA VACCINE [facility] [code = INFLUENZA VACCINE] Future Scheduled Test COVID-19 VACCINE (1) [facility] [code = COVID-19 VACCINE (1)] Future Scheduled Test Hepatitis C screening [facility] (procedure) [code = 049499602] Future Scheduled Test Screening for [facility] malignant neoplasm of cervix (procedure) [code = 623492455] Future Scheduled Test INFLUENZA VACCINE [facility] [code = INFLUENZA VACCINE] Encounters Start End Encounter Admission Attending Care Care Encounter Source Date/Time Date/Time Type Type Clinicians Facility Department ID 2020-10-21 2020-10-22 Emergency Nuszen, 1.2.840.1 [id number] Methodi 23:26:00 01:26:00 Lorena العراقي [address]53.[address] 3.430.2.7 Hospit a .3.557901 l .8 2020-10-22 2020-10-22 Travel 1.2.840.1 1.2.374.000 8731 [id number] Methodi 00:00:00 00:00:[address] 3.430.2.7 0.2.7.3.698 Ho spita .3.548976 084.8 l .8 2020-10-22 2020-10-22 Travel 1.2.840.1 1.2.313.331 9545 562008 Methodi 00:00:00 00:00:[address] 3.430.2.7 0.2.7.3.698 spita .3.329503 084.8 l .8 2020-10-21 2020-10-22 Emergency [facility] [id number] [place] 00:00:00 00:00:00 LORENA Loera Method [facility] 2020-08-28 2020-08-29 Emergency Sangita Doty TRAUMA 1.2.840.114 [id number] 13:50:00 10:43:00 [facility] 350.1.13.10 Jules Darron Berkley 4.2.7.2.686 [id number] 014 2020-04-27 2020-04-27 Emergency Shant, [facility] 1.2.840.114 817 [id number] 20:41:00 23:12:00 Maryrakan Fischer 350.1.13.10 [place] 4.2.7.2.686 [place] [id number] 084 2020-04-27 2020-04-27 Orders Doctor COLE 1.2.840.114 [id number] 00:00:00 00:00:00 Only Unassigned, KEVYN 350.1.13.10 [facility] 4.2.7.2.686 [id number] 009 Results Test Description Test Time Test Comments Results Result Comments Source LACTIC ACID 2020-04-25 02:52:00 Test Item Value Reference Range Interpretation Comme nts LACTIC ACID (test code = LACT) 1.0 mmol/L 0.7-2.0 N COMPREHENSIVE METABOLIC [id number] 02:28:00 Test Item Value Reference Range Interpretation [...] = ALKP) UA RFLX MICR CULT IF [id number] 01:22:00 Test Item Value Reference Range Interpretation [...] URINE: CLEAN CATCHUA RFLX MICR CULT IF [id number] 01:19:00 Test Item Value Reference Range Interpretation [...] code = LACT) toFirst Name: [id number] Last Name:[facility] [employer] Love C.LAB.MG, on , @ 0052. [id number] 00:50:00 Test Item Value Reference Range Interpretation Comments LIPASE (test code = LIP) 54 U/L 23-300 N CBC W/AUTO [id number] 00:49:00 Test Item Value Reference Range Interpretation [...] 0.04 x10 3/uL 0.0-0.1 N - RETRO [id number] 00:16:00 [facility] : 1995 Sex: F [place]: St: REG Name: NATIVIDAD GREGG : 1995 Age/S: 24/F [address] Unit #: [id number] Loc: [place] [address] Phys: Luis Goddard NP Acct: [id number] Dis Date: Status: REG ER PHONE #: [phone] Exam Date: 04/24/2020 0005 FAX #: [phone] Reason: left flank pain EXAMS: CPT CODE: [id number] US RETRO LTD 09369 EXAM: - US RETRO LTD LOCATION: H57 [...] Leonel Delacruz MD CC: Technologist: Francine Jimenez RDNE RVT Trnscrd Date/Time/By: 04/25/2020 (0016) : By: carrie [email or web address] PAGE 1 Signed Report [place]: St: REG Name: NATIVIDAD GREGG [facility] : 1995 Age/S: 24/F [address] Unit #: [id number] Loc: [place] [address] 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 - XR CHEST 1 [id number] 20:44:00 [facility] : 1995 Sex: F Name: NATIVIDAD GREGG [facility] : 1995 Age/S: 24 / F [address] [place] Unit #: [id number] Loc: [place] [address] Phys: Anita Kruse MD Acct: [id number] Dis Date: Status: REG ER PHONE #: [phone] Exam Date: 01/18/20202023 FAX #: Reason: Code Sepsis EXAMS: CPT: [id number] XR CHEST 1 V 78338 Fluoro Time: DAP (Gy m2): Air Kerma [...] PAGE 1 Signed Report Name: NATIVIDAD GREGG [facility] : 1995 Age/S: 24 / F [address] [facility] Unit #: [id number] Loc: [place] [address] Phys: Anita Kruse MD Acct: [id number] Dis Date: Status: REG ER PHONE #: [phone] Exam Date: 01/18/20202023 FAX #: Reason: Code Sepsis EXAMS: CPT: [id number] XR CHEST 1 V 20781 Fluoro Time: DAP (Gy m2): Air Kerma (mGy): <Continued> Technologist: RT Jose(R)(CT) Trnscb Date/Time: 01/18/2020 (2043) Дмитрий5 Orig Print D/T: S: 01/18/2020 (2047) PAGE 2 Signed ReportUA RFLX MICR CULT IF [id number] 20:17:00 Test Item Value Reference Range Interpretation [...] UACULT) Indication for culture: Suprapubic PainBASIC METABOLIC [id number] 20:13:00 Test Item Value Reference Range Interpretation [...] 8.5-10.1 N Completed by Nursing: NOHEPATIC FUNCTION [id number] 20:13:00 Test Item Value Reference Range Interpretation [...] N code = ALKP) Completed by Nursing: [id number] 20:13:00 Test Item Value Reference Range Interpretation [...] jesse yby method. Completed by Nursing: NOLACTIC [id number] 20:13:00 Test Item Value Reference Range Interpretation Comments LACTIC ACID (test code = LACT) 1.8 mmol/L 0.4-2.0 N CBC W/AUTO [id number] 19:57:00 Test Item Value Reference Range Interpretation [...] NO DIFF/SCN CRITERIA = MDIFF) BASIC METABOLIC [id number] 07:22:00 Test Item Value Reference Range Interpretation [...] 8.7 mg/dL 8.4-10.2 N CA) CBC W/AUTO [id number] 07:03:00 Test Item Value Reference Range Interpretation [...] 0.05 x10 3/uL 0.0-0.1 N BASIC METABOLIC [id number] 05:56:00 Test Item Value Reference Range Interpretation [...] 8.4 mg/dL 8.4-10.2 N CA) CBC W/AUTO [id number] 05:42:00 Test Item Value Reference Range Interpretation [...] *LDL Cholesterol<1 00mg/ dL: Desirable L DL-C ocgtujbpkusid29 0-159 mg/dL: Borderli ne High Risk LDL-C xwawfmvmatjhd76 0-189 mg/dL: High ris k LDL-C concentra [...] DL Cholesterol<1 00mg/dL : Desirable LDL -C sybhsnktdvqxf83 0-159mg /dL: Borderline High Risk LDL-C 0-189mg /dL: High risk LDL-C concentration H DL-LDL Cholesterol is affected by a n umber of factors such as smoking, age an d sex.~~~~~~~~~~~ ~~~~~~~ ~~~~~~~~~~~~~~~ ~~~~~~~ ~~~~~~~~~~~~~~~ ~~~~~ LACTIC [id number] 17:52:00 Test Item Value Reference Range Interpretation Comments LACTIC ACID (test code = LACT) 1.6 mmol/L 0.7-2.0 N Coronavirus 2019 nCoV [id number] 17:03:00 Test Item Value Reference Range Interpretation Comments Coronavirus 2018 Negative NEGATIVE This test h as been nCoV Bedside (test authorize d by FDA under code = [id number]) an EUA for use byauthorized laboratories; This [...] and/o r diagnosis of CO VID-19 under Byxzpva12 4(b)(1) of the Act, 21 U.S .C. 360bbb-3(b)(1), unless theauthorizatio n is terminated or r evoked sooner. LACTIC [id number] 16:44:00 Test Item Value Reference Range Interpretation Comments LACTIC ACID (test 2.1 mmol/L 0.7-2.0 HH Critical V alue reported code = LACT) toFirst Name:UTE D6486 Last Name:CHEL JUNG [employer] Love C.LAB.LAS1, on 01/15/20, @ 164 4. UA RFLX MICR CULT IF [id number] 16:42:00 Test Item Value Reference Range Interpretation [...] for culture: Dysuria/FrequencySOURCE OF URINE: CLEAN CATCHLACTIC [id number] 15:54:00 Test Item Value Reference Range Interpretation Comments LACTIC ACID (test 2.6 mmol/L 0.7-2.0 HH Critical V alue reported code = LACT) toFirst Name:WHITLEY I8356 Last Name:CHEL JUNG [employer] ShuklaLAB.LAS1, on 01/15/20, @ 155 4. BASIC METABOLIC [id number] 15:50:00 Test Item Value Reference Range Interpretation [...] 9.6 mg/dL 8.4-10.2 N CA) LIVER FUNCTION [id number] 15:50:00 Test Item Value Reference Range Interpretation [...] U/L 38-126 N (test code = ALKP) [id number] 15:50:00 Test Item Value Reference Range Interpretation Comments LIPASE (test code = LIP) 47 U/L 23-300 N PROTHROMBIN [id number] 15:50:00 Test Item Value Reference Range Interpretation [...] - 3.0 Atrial fibrillation 2.0 - 3.03. Continuous Improvement Intern al prosthetic valv es (high risk) 2.5 - 3.5 * If oral anticoagulant t herapy is elected to preventrecurren t myocardial infa rction, an INR of 2.5-3 .5 isrecommended, consistent with Food and Drug Administrationr ecommen dations. THROMBOPLASTIN TIME [id number] 15:50:00 Test Item Value Reference Range Interpretation Comments THROMBOPLASTIN TIME 31.8 SECONDS 23.4-37.0 N Therap eutic Range PARTIAL (test code = for Hep katherine PTT) EFFECTIVE Heparin IU/mL aPT T Seconds0.3 64.30.7 88.8 BASIC METABOLIC [id number] 15:49:00 Test Item Value Reference Range Interpretation [...] 9.6 mg/dL 8.4-10.2 N CA) LIVER FUNCTION [id number] 15:49:00 Test Item Value Reference Range Interpretation [...] U/L 38-126 N (test code = ALKP) [id number] 15:49:00 Test Item Value Reference Range Interpretation Comments LIPASE (test code = LIP) U/L 23-300 CBC W/AUTO [id number] 15:30:00 Test Item Value Reference Range Interpretation [...] 3/uL 0.0-0.1 N - XR CHEST 1 [id number] 15:03:00 [facility] : 1995 Sex: F [place]: [address] St: PRE Name: CRISTINONATIVIDAD BUSTAMANTE [facility] : 1995 Age/S: 24/F [address] Unit #: [id number] Loc: [place] [address] Phys: Victorino Schofield Acct: [id number] Dis Date: Status: PRE ER PHONE #: [phone] Exam Date: 01/15/2020 1450 FAX #: [phone] Reason: CODE SEPSIS EXAMS: CPT CODE: [id number] XR CHEST 1 V 06498 EXAM: Portable chest x-ray, one view INDICATION: [...] CC: Technologist: MANPREET COSBY; STUDENT 2ND YEAR Trniard Date/Time/By: 01/15/2020 (4233) : By: Jaydon PAGE 1 Signed Report [place]: St: PRE Name: NATIVIDAD GREGG [facility] : 1995 Age/S: 24/F [address] Unit #: [id number] Loc: [place] [address] Phys: Mason Schofield Acct: [id number] Dis Date: Status: PRE ER PHONE #: [phone] Exam Date: 01/15/2020 1450 FAX #: [phone] Reason: CODE SEPSIS EXAMS: CPT CODE: [id number] XR CHEST 1 V 09202 <Continued> Orig Print D/T: S: 01/15/2020 (8717) PAGE 2 Signed Report- XR CHEST 1 [id number] 15:03:00[facility] : 1995 Sex: F [place]: [address] St: DIS Name: NATIVIDAD GREGG [facility] : 1995 Age/S: 24/F [address] Unit #: [id number] Loc: C[address] [place] [address] Phys: Victorino cShofield Acct: [id number] Dis Date: [id number] Status: DIS IN PHONE #: [phone] Exam Date: 01/15/2020 8818 FAX #: [phone] Reason: CODE SEPSIS EXAMS: CPT CODE: [id number] XR CHEST 1 V 72796 EXAM: Portable chest x-ray, one view INDICATION: [...] CASE; STUDENT 2ND YEAR Trnscrd Date/Time/By: 01/15/2020 (5121) : By: Jaydon PAGE 1 Signed Report [place]: St: DIS Name: NATIVIDAD GREGG [facility] : 1995 Age/S: 24/F [address] Unit #: [id number] Loc: [address] [place] [address] Phys: Mason Schofield Acct: [id number] Dis Date: [id number] Status: DIS IN PHONE #: [phone] Exam Date: 01/15/2020 1450 FAX #: [phone] Reason: CODE SEPSIS EXAMS: CPT CODE: [id number] XR CHEST 1 V 10356 <Continued> Orig Print D/T: S: 01/15/2020 (5848) PAGE 2 Signed ReportLACTIC [id number] 01:50:00 Test Item Value Reference Range Interpretation Comments LACTIC ACID (test code = LACT) 1.2 mmol/L 0.7-2.0 N COMPREHENSIVE METABOLIC [id number] 00:45:00 Test Item Value Reference Range Interpretation [...] N (test code = ALKP) HCG SERUM [id number] 00:45:00 Test Item Value Reference Range Interpretation Comments HCG SERUM QUAL (test code = HCGQL) NEGATIVE NEGATIVE LACTIC [id number] 00:13:00 Test Item Value Reference Range Interpretation Comments LACTIC ACID (test 2.3 mmol/L 0.7-2.0 HH Critical V alue reported code = LACT) toFirst Name:AYAN K9646 Last Name:CHEL JUNG [employer] DELCID.WR, on , @ 0013. UA RFLX MICR CULT IF [id number] 00:06:00 Test Item Value Reference Range Interpretation [...] Dysuria/FrequencySOURCE OF URINE: CLEAN CATCH COMPREHENSIVE METABOLIC [id number] 23:43:00 Test Item Value Reference Range Interpretation [...] N (test code = ALKP) HCG SERUM [id number] 23:43:00 Test Item Value Reference Range Interpretation Comments HCG SERUM QUAL (test code = HCGQL) NEGATIVE CBC W/AUTO [id number] 23:38:00 Test Item Value Reference Range Interpretation [...] BA#) 0.06 x10 3/uL 0.0-0.1 N LACTIC [id number] 19:19:00 Test Item Value Reference Range Interpretation Comments LACTIC ACID (test code = LACT) 1.6 mmol/L 0.7-2.0 N UA RFLX MICR CULT IF [id number] 18:41:00 Test Item Value Reference Range Interpretation [...] Flank PainSOURCE OF URINE: CLEAN CATCHBASIC METABOLIC [id number] 18:39:00 Test Item Value Reference Range Interpretation [...] 10.0 mg/dL 8.4-10.2 N CA) LIVER FUNCTION [id number] 18:39:00 Test Item Value Reference Range Interpretation [...] U/L 38-126 N (test code = ALKP) [id number] 18:39:00 Test Item Value Reference Range Interpretation Comments LIPASE (test code = LIP) 81 U/L 23-300 N BASIC METABOLIC [id number] 18:37:00 Test Item Value Reference Range Interpretation [...] 10.0 mg/dL 8.4-10.2 N CA) LIVER FUNCTION [id number] 18:37:00 Test Item Value Reference Range Interpretation [...] U/L 38-126 N (test code = ALKP) [id number] 18:37:00 Test Item Value Reference Range Interpretation Comments LIPASE (test code = LIP) U/L 23-300 - CT ABD PELVIS W/O [id number] 18:36:00 [facility] : 1995 Sex: F FAX: Mayelin Santos [phone] [place]: St: PRE Name: NATIVIDAD GREGG : 1995 Age/S: 24/F [address] Unit: [id number] Loc: [place] [address] Phys: Mayelin Tyler 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 Acct: [id number] Dis Date: Status: PRE ER PHONE #: [phone] Exam Date: 01/13/2020 1820 FAX #: [phone] Reason: flank pain EXAMS: CPT CODE: [id number] CT ABD PELVIS W/O CONT 63417 Examination: Abdomen and pelvic CT without contrast [...] 1 Signed Report (CONTINUED) FAX: Mayelin Santos [phone] [place]: St: PRE--------- Name: NATIVIDAD GREGG [facility] Randy : 1995 Age/S: 24/F [address] Unit: [id number] Loc: [place] [address] Phys: Mayelin Mesa 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
[2020-11-22 13:20] LABS: Basophils % 1.3 % (0-1.3); Hematocrit 29.2 % (36.0-45.0); Lymphocytes % 22.6 % (15.3-44.8); MPV 7.4 fL (7.6-11.3); RBC Red Blood Cell Count 3.77 M/uL (3.86-4.86)
[2020-11-22 13:45] LABS: Potassium 4.5 mmol/L (3.5-5.1)
[2020-11-22] MEDS ORDERED: MORPHINE 4 MG/ML SYR ONE (13:45)
[2020-11-22] MEDS ORDERED: ONDANSETRON 4 MG/2 ML VIAL ONE (13:45)
[2020-11-22] MEDS ORDERED: NA CHLORIDE 0.9% 1,000 ML ONE (13:46)
--- NOTE | 2020-11-22 14:09 | RAD REPORT ---
EXAM DESCRIPTION: CT - Spine Lumbar W/Cont - 11/22/2020 1:43 pm CLINICAL HISTORY: pain COMPARISON: Spine Lumbar W/Cont dated 10/23/2020; Abdomen Pelvis W Contrast dated 08/28/2020; Stone Protocol dated 02/19/2020 TECHNIQUE: Axial noncontrast CT imaging of the lumbar spine was performed with coronal and sagittal re-formatted images. All CT scans are performed using dose optimization technique as appropriate and may include automated exposure control or mA/KV adjustment according to patient size. FINDINGS: Nonobstructing stone in the left kidney. Normal appendix. No bowel obstruction. No free fl uid. No aortic aneurysm is seen. Surgical changes in the posterior soft tissues of the back at the level of L5. Using slightly differe nt measurements to the prior CT, no significant change in the collection measuring approximately 3.4 x 1.9 cm. There does not appear to be any peripheral enhancement or mass effect as a result of the fl uid. IMPRESSION: Overall similar volume of fluid within the soft tissues of the back which may be postsur gical. The configuration of the fluid is more typical of a subacute/chronic seroma rather than absces s.
--- NOTE | 2020-11-22 15:24 | EDPHYS ---
Physician Documentation [facility] Name: Ana Lilia Kline Age: 25 yrs Sex: Female : 1995 Arrival Date: 11/22/2020 Time: 11:33 Bed 16 Private MD: ED Physician Navi Sheldon HPI: 11/22 18:24 This 25 yrs old Female presents to ER via Ambulatory with complaints of kdr Shortness Of Breath, Irregular Pulse, Abscess - on surgical site. 18:26 The patient presents with pain The patient states that she had a procedure on her lower kdr back last week. She indicated that she had prior numerous surgeries on her low back. Since then she has had recurrent seromas and occasional abscesses in the same area. She states for the past week she has had increasing pain in her low back which is an exacerbation recurrence of a similar problem. The patient is actively moving around the room in which she states is agonizing pain. In review of her prior visit history, she has been seen here for similar problems in the past.. The symptoms are located in the low back. The pain does not radiate. The problem was sustained Prior procedure area. Onset: The symptoms/episode began/occurred gradually, Last 5 to 6 days. Modifying factors: The patient symptoms are alleviated by nothing, the patient symptoms are aggravated by nothing. Associated signs and symptoms: The patient has no apparent associated signs or symptoms. Severity of symptoms: At their worst the symptoms were severe, incapacitating, in the emergency department the symptoms are unchanged. The patient has experienced similar episodes in the past, multiple times. The patient has been recently seen by a physician: Patient claims she had drainage of a prior seroma about a week ago in [place]. Historical: - Allergies: 12:02 Doxycycline; tw2 12:02 Demerol; tw2 12:02 Reglan; tw2 12:02 Toradol; tw2 12:02 Haldol; tw2 12:02 Zithromax; tw2 - Home Meds: 12:02 gabapentin Oral [Active]; tramadol 100 mg Oral BP25 1 cap once daily [Active]; Cymbalta tw2 Oral [Active]; Flexeril Oral [Active]; - PMHx: 12:02 Asthma; Endometrosis; Kidney stones; polycystic ovarian disease; sudotumor ceribri; tw2 - PSHx: 12:02 Cholecystectomy; Kidney stent placed and removed; Multiple I\\T\\D's from abcesses; Right tw2 fallopen tube removed from torson; 12:04 L5\\T\\6 discectomy; tw2 - Immunization history:: Client reports receiving the 2nd dose of the Covid vaccine, Last tetanus immunization: unknown. - Social history:: Smoking status: Patient reports the use of cigarette tobacco products, smokes one-half pack cigarettes per day. ROS: 18:26 Constitutional: Negative for fever, chills, and weight loss, Eyes: Negative for injury, kdr pain, redness, and discharge, ENT: Negative for injury, pain, and discharge, Neck: Negative for injury, pain, and swelling, Cardiovascular: Negative for chest pain, palpitations, and edema, Respiratory: Negative for shortness of breath, cough, wheezing, and pleuritic chest pain, Abdomen/GI: Negative for abdominal pain, nausea, vomiting, diarrhea, and constipation, : Negative for injury, bleeding, discharge, and swelling, MS/Extremity: Negative for injury and deformity, Skin: Negative for injury, rash, and discoloration, Neuro: Negative for headache, weakness, numbness, tingling, and seizure activity. Psych: Negative for depression, anxiety, suicide ideation, homicidal ideation, and hallucinations, Allergy/Immunology: Negative for hives, rash, and allergies, Endocrine: Negative for neck swelling, polydipsia, polyuria, polyphagia, and marked weight changes, Hematologic/Lymphatic: Negative for swollen nodes, abnormal bleeding, and unusual bruising. 18:26 Back: Positive for pain at rest, pain with movement, of the sacrum, Patient has pain at the cephalid aspect of her gluteal cleft. Exam: 18:26 Constitutional: This is a well developed, well nourished patient who is awake, alert, kdr and in no acute distress. Head/Face: Normocephalic, atraumatic. Eyes: Pupils equal round and reactive to light, extra-ocular motions intact. Lids and lashes normal. Conjunctiva and sclera are non-icteric and not injected. Cornea within normal limits. Periorbital areas with no swelling, redness, or edema. Neck: Trachea midline, no thyromegaly or masses palpated, and no cervical lymphadenopathy. Supple, full range of motion without nuchal rigidity, or vertebral point tenderness. No Meningismus. Chest/axilla: Normal chest wall appearance and motion. Nontender with no deformity. No lesions are appreciated. Cardiovascular: Regular rate and rhythm with a normal S1 and S2. No gallops, murmurs, or rubs. Normal PMI, no JVD. No pulse deficits. Respiratory: Lungs have equal breath sounds bilaterally, clear to auscultation and percussion. No rales, rhonchi or wheezes noted. No increased work of breathing, no retractions or nasal flaring. Abdomen/GI: Soft, non-tender, with normal bowel sounds. No distension or tympany. No guarding or rebound. No evidence of tenderness throughout. Skin: Warm, dry with normal turgor. Normal color with no rashes, no lesions, and no evidence of cellulitis. MS/ Extremity: Pulses equal, no cyanosis. Neurovascular intact. Full, normal range of motion. Neuro: Awake and alert, GCS 15, oriented to person, place, time, and situation. Cranial nerves II-XII grossly intact. Motor strength 5/5 in all extremities. Sensory grossly intact. Cerebellar exam normal. Normal gait. Psych: Awake, alert, with orientation to person, place and time. Behavior, mood, and affect are within normal limits. 18:26 Back: pain, that is moderate, that is severe, of the sacrum, normal spinal alignment noted, CVA tenderness, is absent, muscle spasm, is not present, Patient has a well-healed vertical incision starting at the top of her gluteal cleft. There is no evidence of erythema or drainage. On palpation is diffusely tender but no apparent abscess subcutaneous. Vital Signs: 11:55 Pulse 134; Pulse Ox 98% on R/A; tw2 14:09 Temp 97.3; aj2 11:55 pt pacing in lobby at this time, states "i just had spine surgery and my heartrate is tw2 irregular". MDM: 15:24 Patient medically screened. kdr 15:34 ED course: [facility] was consulted prior to writing the prescription. I have reviewed kdr the data on that side. Given the patient continues to have significant pain and her vital signs are abnormal (tachycardia) without any other reason for these findings, will give her a limited prescription and the name of a neurosurgeon for her to follow-up with at [facility] in [facility]. The patient received a tramadol prescription on November 17 for 12 tablets. 18:26 Data reviewed: vital signs, nurses notes, lab test result(s), radiologic studies. kdr Counseling: I had a detailed discussion with the patient and/or guardian regarding: the historical points, exam findings, and any diagnostic results supporting the discharge/admit diagnosis, lab results, radiology results, the need for outpatient follow up. 11/22 12:33 Order name: CBC with Diff; Complete Time: 13:58 kdr 11/22 12:33 Order name: Chem 7; Complete Time: 13:58 kdr 11/22 12:36 Order name: Spine Lumbar W/Cont; Complete Time: 15:12 EDMS Administered Medications: 13:33 Drug: NS 0.9% 1000 ml Route: IV; Rate: 1 bolus; Site: right antecubital; aj2 13:34 Drug: morphine 4 mg Route: IVP; Site: right antecubital; aj2 13:34 Drug: Zofran (Ondansetron) 4 mg Route: IVP; Site: right antecubital; aj2 15:48 Not Given (Other Intervention Used): Dilaudid (HYDROmorphone) 1 mg IVP once; RASS on jd3 ADMIN: Combtv4, Very Agttd3, Agttd2, Rstlss1, AlertClm0, Drwsy-1, Lt Sdtn-2, Mod Sdtn-3, Dp Sdtn-4, UnArsble-5 Disposition Summary: 11/22/20 15:24 Discharge Ordered Location: Home kdr Problem: an acute exacerbation kdr Symptoms: have improved kdr Condition: Stable kdr Diagnosis - Low back pain kdr - Postprocedural seroma of a musculoskeletal structure following other procedure kdr Followup: kdr - With: Private Physician - When: 2 - 3 days - Reason: If symptoms return, Further diagnostic work-up, Recheck today's complaints, Continuance of care, Re-evaluation by your physician Discharge Instructions: - Discharge Summary Sheet kdr - Chronic Back Pain kdr - Musculoskeletal Pain kdr Forms: - Medication Reconciliation Form kdr - Thank You Letter kdr - Prescription Opioid Use kdr Prescriptions: - Tylenol-Codeine #3 300 mg-30 mg Oral - take 1 tablet by ORAL route every 4-6 hours You may take 1 or 2 tablets every kdr 4-6 hours as needed for pain; 6 tablet; Refills: 0, Product Selection Permitted Signatures: Dispatcher [employer] Navi Mishra MD MD kdr Wise, Tara RN RN tw2 Erich Brown RN RN jd3 Ildefonso Arrieta [facility]
--- NOTE | 2020-11-22 15:24 | ER ---
Nurse's Notes [facility] Name: Ana Lilia Kline Age: 25 yrs Sex: Female : 1995 Arrival Date: 11/22/2020 Time: 11:33 Bed 16 Private MD: Diagnosis: Low back pain;Postprocedural seroma of a musculoskeletal structure following other procedure Presentation: 11/22 12:00 Chief complaint: Patient states: last week my neurosurgeon did an I\\T\\D on my spine. tw2 recurrent in L5-6 abscess. Coronavirus screen: At this time, the client does not indicate any symptoms associated with coronavirus-19. Ebola Screen: Patient denies travel to an Ebola-affected area in the 21 days before illness onset. Initial Sepsis Screen: Does the patient meet any 2 criteria? No. Patient's initial sepsis screen is negative. Does the patient have a suspected source of infection? No. Patient's initial sepsis screen is negative. Risk Assessment: Do you want to hurt yourself or someone else? Patient reports no desire to harm self or others. Onset of symptoms was November 22, 2020. 12:00 Method Of Arrival: Ambulatory tw2 12:00 Acuity: KATY 2 tw2 Triage Assessment: 12:03 General: Appears obese, Behavior is anxious, fussy. Pain: Complains of pain in back. tw2 Respiratory: Reports n/a Onset: The symptoms/episode began/occurred , Musculoskeletal: Reports pain in back. Historical: - Allergies: 12:02 Doxycycline; tw2 12:02 Demerol; tw2 12:02 Reglan; tw2 12:02 Toradol; tw2 12:02 Haldol; tw2 12:02 Zithromax; tw2 - Home Meds: 12:02 gabapentin Oral [Active]; tramadol 100 mg Oral BP25 1 cap once daily [Active]; Cymbalta tw2 Oral [Active]; Flexeril Oral [Active]; - PMHx: 12:02 Asthma; Endometrosis; Kidney stones; polycystic ovarian disease; sudotumor ceribri; tw2 - PSHx: 12:02 Cholecystectomy; Kidney stent placed and removed; Multiple I\\T\\D's from abcesses; Right tw2 fallopen tube removed from torson; 12:04 L5\\T\\6 discectomy; tw2 - Immunization history:: Client reports receiving the 2nd dose of the Covid vaccine, Last tetanus immunization: unknown. - Social history:: Smoking status: Patient reports the use of cigarette tobacco products, smokes one-half pack cigarettes per day. Screenin:36 Abuse screen: Denies threats or abuse. Denies injuries from another. Nutritional aj2 screening: No deficits noted. Tuberculosis screening: No symptoms or risk factors identified. Fall Risk None identified. Assessment: 13:36 Reassessment: Patient appears in no apparent distress at this time. Patient is alert, aj2 oriented x 3, equal unlabored respirations, skin warm/dry/pink. Cardiovascular: No deficits noted. Respiratory: No deficits noted. 14:09 Reassessment: Patient ambulating in room; unable to obtain V/S.. aj2 Vital Signs: 11:55 Pulse 134; Pulse Ox 98% on R/A; tw2 14:09 Temp 97.3; aj2 11:55 pt pacing in lobby at this time, states "i just had spine surgery and my heartrate is tw2 irregular". ED Course: 11:33 Patient arrived in ED. as 11:56 Arm band placed on. tw2 12:02 Triage completed. tw2 12:13 Navi Sheldon MD is Attending Physician. kdr 12:18 Ildefonso Arrieta is Primary Nurse. aj2 13:14 Accessed peripheral vein via ultrasound, utilizing dynamic ultrasound technique using jd3 20G Nexia IV catheter ,sterile technique, per hospital protocol. Clean \\T\\ dry. Dressing intact. Good blood return. Flushes easily. 13:36 No apparent distress. aj2 13:36 Patient has correct armband on for positive identification. aj2 13:36 No provider procedures requiring assistance completed. IV is patent, is intact, Flushed aj2 left. 13:41 Spine Lumbar W/Cont In Process Unspecified. EDMS 15:16 ED physician to see patient. jd3 16:02 IV discontinued. aj2 Administered Medications: 13:33 Drug: NS 0.9% 1000 ml Route: IV; Rate: 1 bolus; Site: right antecubital; aj2 13:34 Drug: morphine 4 mg Route: IVP; Site: right antecubital; aj2 13:34 Drug: Zofran (Ondansetron) 4 mg Route: IVP; Site: right antecubital; aj2 15:48 Not Given (Other Intervention Used): Dilaudid (HYDROmorphone) 1 mg IVP once; RASS on jd3 ADMIN: Combtv4, Very Agttd3, Agttd2, Rstlss1, AlertClm0, Drwsy-1, Lt Sdtn-2, Mod Sdtn-3, Dp Sdtn-4, UnArsble-5 Outcome: 15:24 Discharge ordered by . sammi 16:01 Discharged to home ambulatory. aj2 16:01 Condition: stable 16:01 Discharge instructions given to patient, Instructed on discharge instructions, follow up and referral plans. Demonstrated understanding of Prescriptions given X 1. 16:03 Patient left the ED. aj2 Signatures: Dispatcher [employer] EDMS Navi Sheldon MD MD kdr Abigail Diamond Tara RN RN tw2 Erich Brown RN RN jd3 Ildefonso Arrieta aj2
[2020-11-22] MEDS ORDERED: HYDROMORPHONE HCL 1 MG/ML INJ ONE (16:10)
== END 2020-11-22 16:03 | disposition home or self-care (01) ==
LOC: ER 11:32
DX: M96.843 Postprocedural seroma of a musculoskeletal structure following other procedure (principal); J45.909 Unspecified asthma, uncomplicated; F17.210 Nicotine dependence, cigarettes, uncomplicated; Z88.1 Allergy status to other antibiotic agents; Z88.5 Allergy status to narcotic agent; Z87.442 Personal history of urinary calculi
CPT/HCPCS: 85025; 80048; 36415; 72132; 96375; 96374; 99284; Q9967; J1170; J7030; J2405

== ENCOUNTER 2020-11-22 21:32 | Emergency (ER) | payer OTHER ==
--- OUTSIDE RECORDS SUMMARY | 2020-11-22 21:37 | XMS REPORT | Continuity of Care Document ---
:1995 Author Organization [facility] t Address [address] [place] [address] Care Team Providers Name Role Phone Provider [...] Clinician Unable DA Active U [facility] to 20 Assess 00:00: 00 doxycycl DA Active MO 2019- [facility] ine 1- [facility] 00:00: d 00 Medical [place] azithrom DA Active MO 2019- [facility] ycin 03-16 [facility] 00:00: d 00 Medical Center metoclop DA Active U 2019- [facility] ramide 03-16 [facility] 00:00: d [facility] Active Anaphylaxis 2020-0 M ethodi ycin ty to 2-16 st adverse 00:00: Hospita reaction 00 l s to drug Doxycycl Propensi Active GI 2020-0 Method i ine ty to Intolerance 2-16 st adverse 00:00: Hospita reaction 00 l s to drug Ketorola Propensi Active Hives 2020-0 Method i c ty to 2-16 st adverse 00:00: Hospita reaction 00 l s to drug doxycycl DA Active SV 2016- [facility] ine 2-09 Clear 00:00: Ng 00 [facility] Doxycycl Drug Active [facility] Allergy Breath 1[facility]17 [facility] - [facility]: Medical [address] [place] [address] Azithrom Drug Active [facility] ycin Allergy Breath 1-17 [facility] - 00:[facility]: Medical 00 [place] azithrom DA Active SV 2012-0 [facility] ycin 5-09 Clear 00:00: Ng 00 [facility] Social History Social Habit Start Date Stop Date Quantity Comments Source History SDCO [facility] Alcohol Std Drinks Hospit al History [facility] Alcohol Binge Hospital History of tobacco Cigarette Smoker [facility] use Hospital Cigarette 2020-10-21 2020-10-21 [facility] pack-years 00:00:00 00:00:00 Hospital Tobacco use and 2020-10-21 2020-10-21 Never used [facility] exposure 00:00:00 00:00:00 Hospital Alcohol intake 2020-10-21 2020-10-21 Lifetime [facility] 00:00:00 00:00:00 non-drinker Hospital (finding) History SDOH 2020-10-21 2020-10-21 1 [facility] Alcohol Frequency 00:00:00 00:00:00 Hospita l Cigarettes smoked 2020-10-21 2020-10-[address] current (pack per 00:00:00 00:00:00 Hospita l day) - Reported Sex Assigned At [birth year] [facility] 00:00:00 00:00:00 Hospital Smoking Status Start Date Stop Date Source Former smoker 2020-10-21 00:00:00 2020-10-21 00:00:00 [facility] Current every day 2016-04-01 00:00:[address] [facility] Medications Ordered Filled Start Stop Current Ordering Indication Dosage Frequency Signature Comments Components Source Medication Medication Date Date Medication? Clinician (SIG) Name Name ACETAZOLAMI Yes Take by [facility] ACETAZOLAMI Yes [facility] 1-[facility] - 21:52: [address] No known No Methodi medications [facility] Hospita l No known No [facility]i [facility] Hospita l Vital Signs Vital Name Observation Time Observation Value Comments Source Body height 2020-10-22 04:27:00 157.5 cm [facility] Body weight 2020-10-22 04:27:00 127.007 kg 280 [facility] BMI 2020-10-22 04:27:00 51.21 kg/m2 [facility] Systolic blood 2020-10-22 04:24:53 155 mm[Hg] Method ist pressure [facility] Diastolic blood 2020-10-22 04:24:53 78 mm[Hg] [facility] Heart rate 2020-10-22 04:24:53 128 /min [facility] Body temperature 2020-10-22 04:24:53 36 Martina [facility] Respiratory rate 2020-10-22 04:24:53 20 /min [facility] Oxygen saturation in 2020-10-22 04:24:53 98 /min [facility] Arterial blood by Hospital Pulse oximetry Respiratory 2020-05-07 07:49:50 No respiratory distress /min 02 Sat by Pulse 2020-05-07 07:49:50 100 /min Oximetry Body Mass Index 2020-05-07 07:49:50 49.4 Height 2020-05-07 07:49:50 157.48\\S\\62 Pulse Rate 2020-05-07 07:49:50 87 /min Respiratory Rate 2020-05-07 07:49:50 18 /min Temperature 2020-05-07 07:49:50 37\\S\\98.6 Weight 2020-05-07 07:49:50 593572.939\\S\\4320 Respiratory 2020-05-05 23:26:04 No respiratory distress /min 02 Sat by Pulse 2020-05-05 23:26:04 100 /min Oximetry Body Mass Index 2020-05-05 23:26:04 49.4 Height 2020-05-05 23:26:04 157.48\\S\\62 Pulse Rate 2020-05-05 23:26:04 87 /min Respiratory Rate 2020-05-05 23:26:04 18 /min Temperature 2020-05-05 23:26:04 37\\S\\98.6 Weight 2020-05-05 23:26:04 136764.939\\S\\4320 Respiratory 2020-05-05 16:38:31 No respiratory distress /min 02 Sat by Pulse 2020-05-05 16:38:31 100 /min Oximetry Body Mass Index 2020-05-05 16:38:31 49.4 Height 2020-05-05 16:38:31 157.48\\S\\62 Pulse Rate 2020-05-05 16:38:31 152 /min Respiratory Rate 2020-05-05 16:38:31 20 /min Temperature 2020-05-05 16:38:31 37.2\\S\\99.0 Weight 2020-05-05 16:38:31 350510.939\\S\\4320 Respiratory 2020-05-05 14:24:00 No respiratory distress /min 02 Sat by Pulse 2020-05-05 14:24:00 100 /min Oximetry Body Mass Index 2020-05-05 14:24:00 49.4 Height 2020-05-05 14:24:00 157.48\\S\\62 Pulse Rate 2020-05-05 14:24:00 152 /min Respiratory Rate 2020-05-05 14:24:00 20 /min Temperature 2020-05-05 14:24:00 37.2\\S\\99.0 Weight 2020-05-05 14:24:00 840013.939\\S\\4320 02 Sat by Pulse 2020-05-05 13:30:25 100 /min Oximetry Body Mass Index 2020-05-05 13:30:25 49.4 Height 2020-05-05 13:30:25 157.48\\S\\62 Pulse Rate 2020-05-05 13:30:25 152 /min Respiratory Rate 2020-05-05 13:30:25 20 /min Temperature 2020-05-05 13:30:25 37.2\\S\\99.0 Weight 2020-05-05 13:30:25 005806.939\\S\\4320 02 Sat by Pulse 2020-05-05 13:17:41 100 /min Oximetry Body Mass Index 2020-05-05 13:17:41 49.4 Height 2020-05-05 13:17:41 157.48\\S\\62 Pulse Rate 2020-05-05 13:17:41 152 /min Respiratory Rate 2020-05-05 13:17:41 20 /min Temperature 2020-05-05 13:17:41 37.2\\S\\99.0 Weight 2020-05-05 13:17:41 526459.939\\S\\4320 02 Sat by Pulse 2020-05-05 13:15:39 100 /min Oximetry Body Mass Index 2020-05-05 13:15:39 49.4 Height 2020-05-05 13:15:39 157.48\\S\\62 Pulse Rate 2020-05-05 13:15:39 152 /min Respiratory Rate 2020-05-05 13:15:39 20 /min Temperature 2020-05-05 13:15:39 37.2\\S\\99.0 Weight 2020-05-05 13:15:39 409461.939\\S\\4320 WEIGHT 2020-05-05 13:11:00 122.540338 kg HEIGHT 2020-05-05 13:11:00 157.48 cm Procedures Procedure Date / Time Performing Clinician Source Performed HC COMPLETE BLD COUNT 2020-10-22 05:09:00 David Phelan [facility] W/AUTO DIFF URINALYSIS 2020-10-22 05:09:00 [facility] COMPREHENSIVE METABOLIC 2020-10-22 05:09:00 David Phelan [facility] PANEL LACTIC ACID, I-STAT 2020-10-22 05:09:00 David Phelan [facility] HCG QUALITATIVE, URINE 2020-10-22 05:09:00 David Phelan [facility] SCREEN ESTIMATED GFR 2020-10-22 05:09:00 David Phelan spital Plan of Care Planned Activity Planned Date Details Comments Source Future Scheduled Test COVID-19 VACCINE (1) [facility] [code = COVID-19 VACCINE (1)] Future Scheduled Test Hepatitis C screening [facility] (procedure) [code = 935419269] Future Scheduled Test Screening for [facility] malignant neoplasm of cervix (procedure) [code = 757685807] Future Scheduled Test INFLUENZA VACCINE [facility] [code = INFLUENZA VACCINE] Future Scheduled Test COVID-19 VACCINE (1) [facility] [code = COVID-19 VACCINE (1)] Future Scheduled Test Hepatitis C screening [facility] (procedure) [code = 697372543] Future Scheduled Test Screening for [facility] malignant neoplasm of cervix (procedure) [code = 103067399] Future Scheduled Test INFLUENZA VACCINE [facility] [code = INFLUENZA VACCINE] Encounters Start End Encounter Admission Attending Care Care Encounter Source Date/Time Date/Time Type Type Clinicians Facility Department ID 2020-10-21 2020-10-[address] [facility], 1.2.840.1 [id number] Methodi 23:26:00 01:26:00 David العراقي [address].1.[address] 3.430.2.7 Hospit a .3.120912 l .8 2020-10-21 2020-10-22 Emergency [place], 1.2.840.1 [id number] Methodi 23:26:00 01:26:00 David العراقي [address]64.1.[address] 3.430.2.7 Hospit a .3.361697 l .8 2020-10-22 2020-10-22 Travel 1.2.840.1 1.2.060.110 1396 090709 Methodi 00:00:00 00:00:[address] 3.430.2.7 0.2.7.3.698 Ho spita .3.078929 084.8 l .8 2020-10-22 2020-10-22 Travel 1.2.840.1 1.2.770.067 3314 004415 Methodi 00:00:00 00:00:[address] 3.430.2.7 0.2.7.3.698 Ho spita .3.894483 084.8 l .8 2020-08-28 2020-08-29 Emergency [place], Sangita Yoselyn TRAUMA 1.2.840.114 [id number] 13:50:00 10:43:00 [facility] 350.1.13.10 Darron Jules 4.2.7.2.686 [id number] 014 2020-04-27 2020-04-27 Emergency Bran, [facility] 1.2.840.114 817 81070 20:41:00 23:12:00 Mary Fischer 350.1.13.10 [place] 4.2.7.2.686 [place] [id number] 084 2020-04-27 2020-04-27 Orders Doctor COLE 1.2.840.114 [id number] 66 00:00:00 00:00:00 Only Unassigned, KEVYN 350.1.13.10 [facility] 4.2.7.2.686 [id number] 009 Results Test Description Test Time Test Comments Results Result Comments Source LACTIC ACID 2020-04-25 02:52:00 Test Item Value Reference Range Interpretation Comme nts LACTIC ACID (test code = LACT) 1.0 mmol/L 0.7-2.0 N COMPREHENSIVE METABOLIC [id number] 02:28:00 Test Item Value Reference Range Interpretation [...] = ALKP) UA RFLX MICR CULT IF [id number] 01:22:00 Test Item Value Reference Range Interpretation [...] URINE: CLEAN CATCHUA RFLX MICR CULT IF [id number] 01:19:00 Test Item Value Reference Range Interpretation [...] code = LACT) toFirst Name: I7767 Last Name:[facility] FABIANA [employer] ShuklaLAB.MG, on , @ 0052. [id number] 00:50:00 Test Item Value Reference Range Interpretation Comments LIPASE (test code = LIP) 54 U/L 23-300 N CBC W/AUTO [id number] 00:49:00 Test Item Value Reference Range Interpretation [...] 0.04 x10 3/uL 0.0-0.1 N - RETRO [id number] 00:16:00 [facility] : 1995 Sex: F [place]: St: REG Name: NATIVIDAD GREGG [facility] Randy : 1995 Age/S: 24/F [address] Unit #: [id number] Loc: [place] [address] Phys: Luis Goddard NP Acct: [id number] Dis Date: Status: [facility] ER PHONE #: [phone] Exam Date: 04/24/2020 0005 FAX #: [phone] Reason: left flank pain EXAMS: CPT CODE: [id number] US RETRO LTD 28711 EXAM: - US RETRO LTD LOCATION: H57 [...] Leonel Delacruz MD CC: Technologist: Francine Jimenez RDAZ RVT Trnscrd Date/Time/By: 04/25/2020 (0016) : By: carrie [email or web address] PAGE 1 Signed Report [place]: St: REG Name: NATIVIDAD GREGG [facility] Randy : 1995 Age/S: 24/F [address] Unit #: [id number] Loc: [place] [address] Phys: Luis Goddard [employer] SANDER STONE Acct: [id number] Dis Date: Status: REG ER PHONE #: [phone] Exam Date: 04/24/2020 0005 FAX #: [phone] Reason: left flank pain EXAMS: CPT CODE: [id number] US RETRO LTD 81857 <Continued> Orig Print D/T: S: 04/25/2020 (0019) PAGE 2 Signed ReportCOVID 19 INHOUSE [id number] 21:16:00 Test Item Value Reference Range Interpretation Comments COVID 19 INHOUSE AG NEGATIVE Negative Per manu facturer, (test code = negative result s should [id number]) be treated aspr esumptive and, if inconsi [...] nsistent with COVID-19. - XR CHEST 1 [id number] 20:44:00 [facility] : 1995 Sex: F Name: NATIVIDAD GREGG [place] : 1995 Age/S: 24 / F [address] Unit #: [id number] Loc: [place] [address] Phys: Anita Kruse MD Acct: [id number] Dis Date: Status: REG ER PHONE #: [phone] Exam Date: 01/18/20202023 FAX #: Reason: Code Sepsis EXAMS: CPT: [id number] XR CHEST 1 V 35539 Fluoro Time: DAP (Gy m2): Air Kerma [...] PAGE 1 Signed Report Name: NATIVIDAD GREGG [place] : 1995 Age/S: 24 / F [id number] [place] [address] Unit #: [id number] Loc: [place] [address] Phys: Anita Kruse MD Acct: [id number] Dis Date: Status: REG ER PHONE #: [phone] Exam Date: 01/18/20202023 FAX #: Reason: Code Sepsis EXAMS: CPT: [id number] XR CHEST 1 V 43859 Fluoro Time: DAP (Gy m2): Air Kerma (mGy): <Continued> Technologist: Brandi Clark RT(R)(CT) Trnscb Date/Time: 01/18/2020 (2043) [email or web address] Orig Print D/T: S: 01/18/2020 (2047) PAGE 2 Signed ReportUA RFLX MICR CULT IF [id number] 20:17:00 Test Item Value Reference Range Interpretation [...] UACULT) Indication for culture: Suprapubic PainBASIC METABOLIC [id number] 20:13:00 Test Item Value Reference Range Interpretation [...] 8.5-10.1 N Completed by Nursing: NOHEPATIC FUNCTION [id number] 20:13:00 Test Item Value Reference Range Interpretation [...] N code = ALKP) Completed by Nursing: [id number] 20:13:00 Test Item Value Reference Range Interpretation [...] jesse yby method. Completed by Nursing: NOLACTIC [id number] 20:13:00 Test Item Value Reference Range Interpretation Comments LACTIC ACID (test code = LACT) 1.8 mmol/L 0.4-2.0 N CBC W/AUTO [id number] 19:57:00 Test Item Value Reference Range Interpretation [...] NO DIFF/SCN CRITERIA = MDIFF) BASIC METABOLIC [id number] 07:22:00 Test Item Value Reference Range Interpretation [...] 8.7 mg/dL 8.4-10.2 N CA) CBC W/AUTO [id number] 07:03:00 Test Item Value Reference Range Interpretation [...] 0.05 x10 3/uL 0.0-0.1 N BASIC METABOLIC [id number] 05:56:00 Test Item Value Reference Range Interpretation [...] 8.4 mg/dL 8.4-10.2 N CA) CBC W/AUTO [id number] 05:42:00 Test Item Value Reference Range Interpretation [...] *LDL Cholesterol<1 00mg/ dL: Desirable L DL-C wmawlfbqzshuc35 0-159 mg/dL: Borderli ne High Risk LDL-C hrtlbbflrqxki80 0-189 mg/dL: High ris k LDL-C concentra [...] AVG 11.04~~~~~~~~~~ ~~~~~~~ ~~~~~~~~~~~~~~~ ~~~~~~~ ~~~~~~~~~~~~~~~ ~~~~~~[facility] Education (NCEP ) Guidelines:~~~~ ~~~~~~~ ~~~~~~~~~~~~~~~ ~~~~~~~ ~~~~~~~~~~~~~~~ ~~~~~~~ ~~~~~ HDL Cholesterol<4 0mg/dL: HDL Cholesterol (Major risk factor for CHD)>60mg/dL: H DL Cholesterol (Ne gative risk factor for CHD)40-59mg/dL: Borderline Risk L DL Cholesterol<1 00mg/dL : Desirable LDL -C vhydlxwmftqrc62 0-159mg /dL: Borderline High Risk LDL-C jwxyuigzaigej17 0-189mg /dL: High risk LDL-C concentration H DL-LDL Cholesterol is affected by a n umber of factors such as smoking, age an d sex.~~~~~~~~~~~ ~~~~~~~ ~~~~~~~~~~~~~~~ ~~~~~~~ ~~~~~~~~~~~~~~~ ~~~~~ LACTIC [id number] 17:52:00 Test Item Value Reference Range Interpretation Comments LACTIC ACID (test code = LACT) 1.6 mmol/L 0.7-2.0 N Coronavirus 2019 nCoV [id number] 17:03:00 Test Item Value Reference Range Interpretation Comments Coronavirus 2018 Negative NEGATIVE This test h as been nCoV Bedside (test authorize d by FDA under code = [id number]) an EUA for use byPointworthy laboratories; This test has been author ized only for the detecti on ofnucleic acid from SARS-CoV-2, not for any other viruses orpathogens; an d This test is only au thorized for the duratio n of thedeclaration that circumstances e xist justifying theauthorizatio n of emergency use o f in vitro diagnostic test sfor detection and/o r diagnosis of CO VID-19 under Wgcmlgd34 4(b)(1) of the Act, 21 U.S .C. 360bbb-3(b)(1), unless theauthorizatio n is terminated or r evoked sooner. LACTIC [id number] 16:44:00 Test Item Value Reference Range Interpretation Comments LACTIC ACID (test 2.1 mmol/L 0.7-2.0 HH Critical V alue reported code = LACT) toFirst Name:UTE D6486 Last Name:CHEL JUNG [employer] Love C.LAB.LAS1, on 01/15/20, @ 164 4. UA RFLX MICR CULT IF [id number] 16:42:00 Test Item Value Reference Range Interpretation [...] for culture: Dysuria/FrequencySOURCE OF URINE: CLEAN CATCHLACTIC [id number] 15:54:00 Test Item Value Reference Range Interpretation Comments LACTIC ACID (test 2.6 mmol/L 0.7-2.0 HH Critical V alue reported code = LACT) toFirst Name:HI I8356 Last Name:[facility] F[facility] [employer] ShuklaLAB.LAS1, on 01/15/20, @ 155 4. BASIC METABOLIC [id number] 15:50:00 Test Item Value Reference Range Interpretation [...] 9.6 mg/dL 8.4-10.2 N CA) LIVER FUNCTION [id number] 15:50:00 Test Item Value Reference Range Interpretation [...] U/L 38-126 N (test code = ALKP) [id number] 15:50:00 Test Item Value Reference Range Interpretation Comments LIPASE (test code = LIP) 47 U/L 23-300 N PROTHROMBIN [id number] 15:50:00 Test Item Value Reference Range Interpretation [...] - 3.0 Atrial fibrillation 2.0 - 3.03. Copper Tapper al prosthetic valv es (high risk) 2.5 - 3.5 * If oral anticoagulant t herapy is elected to preventrecurren t myocardial infa rction, an INR of 2.5-3 .5 isrecommended, consistent with Food and Drug Administrationr ecommen dations. THROMBOPLASTIN TIME [id number] 15:50:00 Test Item Value Reference Range Interpretation Comments THROMBOPLASTIN TIME 31.8 SECONDS 23.4-37.0 N Therap eutic Range PARTIAL (test code = for Hep katherine PTT) EFFECTIVE Heparin IU/mL aPT T Seconds0.3 64.30.7 88.8 BASIC METABOLIC [id number] 15:49:00 Test Item Value Reference Range Interpretation [...] 9.6 mg/dL 8.4-10.2 N CA) LIVER FUNCTION [id number] 15:49:00 Test Item Value Reference Range Interpretation [...] U/L 38-126 N (test code = ALKP) [id number] 15:49:00 Test Item Value Reference Range Interpretation Comments LIPASE (test code = LIP) U/L 23-300 CBC W/AUTO [id number] 15:30:00 Test Item Value Reference Range Interpretation [...] 3/uL 0.0-0.1 N - XR CHEST 1 [id number] 15:03:00 [facility] 1995 Sex: F [place]: ANDREZ St: DIS Name: NATIVIDAD GREGG : 1995 Age/S: 24/F [address] Unit #: [id number] Loc: [address] [place] [address] Phys: Victorino Schofield Acct: [id number] Dis Date: [id number] Status: DIS IN PHONE #: [phone] Exam Date: 01/15/2020 1451 FAX #: [phone] Reason: CODE SEPSIS EXAMS: CPT CODE: [id number] XR CHEST 1 V 78522 EXAM: Portable chest x-ray, one view INDICATION: [...] CC: Technologist: HARJEET CASE; STUDENT 2ND YEAR Trnsdrd Date/Time/By: 01/15/2020 (2488) : By: MistyHPD PAGE 1 Signed Report [place]: St: DIS Name: NATIVIDAD GREGG : 1995 Age/S: 24/F [address] Unit #: [id number] Loc: [address] [place] [address] Phys: Mason Schofield Acct: [id number] Dis Date: [id number] Status: DIS IN PHONE #: [phone] Exam Date: 01/15/2020 1453 FAX #: [phone] Reason: CODE SEPSIS EXAMS: CPT CODE: [id number] XR CHEST 1 V 60290 <Continued> Orig Print D/T: S: 01/15/2020 (1507) PAGE 2 Signed Report- XR CHEST 1 [id number] 15:03:00[facility] : 1995 Sex: F [place]: St: PRE Name: NATIVIDAD GREGG [facility] : 1995 Age/S: 24/F [address] Unit #: [id number] [place]: [place] [address] Phys: Victorino Schofield Acct: [id number] Dis Date: Status: PRE ER PHONE #: [phone] Exam Date: 01/15/2020 1450 FAX #: [phone] Reason: CODE SEPSIS EXAMS: CPT CODE: [id number] XR CHEST 1 V 07830 EXAM: Portable chest x-ray, one view INDICATION: [...] CC: Technologist: MANPREET COSBY; STUDENT 2ND YEAR Trnscrd Date/Time/By: 01/15/2020 (8891) : By: Jaydon PAGE 1 Signed Report [place]: St: PRE Name: NATIVIDAD GREGG [facility] [place] : 1995 Age/S: 24/F [address] Unit #: [id number] Loc: [place] [address] Phys: Mason Schofield Acct: [id number] Dis Date: Status: PRE ER PHONE #: [phone] Exam Date: 01/15/2020 1450 FAX #: [phone] Reason: CODE SEPSIS EXAMS: CPT CODE: [id number] XR CHEST 1 V 53572 <Continued> Orig Print D/T: S: 01/15/2020 (7786) PAGE 2 Signed ReportLACTIC [id number] 01:50:00 Test Item Value Reference Range Interpretation Comments LACTIC ACID (test code = LACT) 1.2 mmol/L 0.7-2.0 N COMPREHENSIVE METABOLIC [id number] 00:45:00 Test Item Value Reference Range Interpretation [...] N (test code = ALKP) HCG SERUM [id number] 00:45:00 Test Item Value Reference Range Interpretation Comments HCG SERUM QUAL (test code = HCGQL) NEGATIVE NEGATIVE LACTIC [id number] 00:13:00 Test Item Value Reference Range Interpretation Comments LACTIC ACID (test 2.3 mmol/L 0.7-2.0 HH Critical V alue reported code = LACT) toFirst Name:AYAN K9646 Last Name:CHEL JUNG [employer] Love C.LAB.WR, on , @ 0013. UA RFLX MICR CULT IF [id number] 00:06:00 Test Item Value Reference Range Interpretation [...] Dysuria/FrequencySOURCE OF URINE: CLEAN CATCH COMPREHENSIVE METABOLIC [id number] 23:43:00 Test Item Value Reference Range Interpretation [...] N (test code = ALKP) HCG SERUM [id number] 23:43:00 Test Item Value Reference Range Interpretation Comments HCG SERUM QUAL (test code = HCGQL) NEGATIVE CBC W/AUTO [id number] 23:38:00 Test Item Value Reference Range Interpretation [...] BA#) 0.06 x10 3/uL 0.0-0.1 N LACTIC [id number] 19:19:00 Test Item Value Reference Range Interpretation Comments LACTIC ACID (test code = LACT) 1.6 mmol/L 0.7-2.0 N UA RFLX MICR CULT IF [id number] 18:41:00 Test Item Value Reference Range Interpretation [...] Flank PainSOURCE OF URINE: CLEAN CATCHBASIC METABOLIC [id number] 18:39:00 Test Item Value Reference Range Interpretation [...] 10.0 mg/dL 8.4-10.2 N CA) LIVER FUNCTION [id number] 18:39:00 Test Item Value Reference Range Interpretation [...] U/L 38-126 N (test code = ALKP) [id number] 18:39:00 Test Item Value Reference Range Interpretation Comments LIPASE (test code = LIP) 81 U/L 23-300 N BASIC METABOLIC [id number] 18:37:00 Test Item Value Reference Range Interpretation [...] 10.0 mg/dL 8.4-10.2 N CA) LIVER FUNCTION [id number] 18:37:00 Test Item Value Reference Range Interpretation [...] U/L 38-126 N (test code = ALKP) [id number] 18:37:00 Test Item Value Reference Range Interpretation Comments LIPASE (test code = LIP) U/L 23-300 - CT ABD PELVIS W/O [id number] 18:36:00 [facility] WOODName: NATIVIDAD GREGG : 1995 Sex: F FAX: N Nayeli,Mayelin Bella [phone] [place]: St: PRE Name: NATIVIDAD GREGG [facility] : 1995 Age/S: 24/F [address] Unit: [id number] Loc: [place] [address] Phys: Mayelin Tyler [employer] SANDER STONE Acct: [id number] Dis Date: Status: PRE ER PHONE #: [phone] Exam Date: 01/13/2020 1820 FAX #: [phone] Reason: flank pain EXAMS: CPT CODE: [id number] CT ABD PELVIS W/O CONT 30009 Examination: Abdomen and pelvic CT without contrast [...] 1 Signed Report (CONTINUED) FAX: Mayelin Santos [phone] [place]: St: PRE--------- Name: NATIVIDAD GREGG [facility] [place] : 1995 Age/S: 24/F [address] Unit: [id number] Loc: [place] [address] Phys: Mayelin Mesa NP Acct: [id number] Dis Date: Status: PRE ER PHONE #: [phone] Exam Date: 01/13/2020 1820 FAX #: [phone] Reason: flank pain EXAMS: CPT CODE: [id number] CT ABD PELVIS W/O CONT 87630 <Continued> CC: Mayelin Tyler NP Technologist: Rosa [...] NEGATIVE UA PH DIPSTICK (test code = GO) 4.5-8.5 UA PROTEIN DIPSTICK (test code = [...] Flank PainSOURCE OF URINE: CLEAN CATCHCBC W/AUTO [id number] 18:19:00 Test Item Value Reference Range Interpretation [...]
[2020-11-22] MEDS ORDERED: ONDANSETRON 4 MG/2 ML VIAL ONE (23:12)
[2020-11-22] MEDS ORDERED: NA CHLORIDE 0.9% 1,000 ML ONE (23:12)
[2020-11-22] MEDS ORDERED: MORPHINE 4 MG/ML SYR ONE (23:13)
[2020-11-22 23:26] LABS: Hematocrit 29.3 % (36.0-45.0); RBC Red Blood Cell Count 3.78 M/uL (3.86-4.86)
[2020-11-22 23:27] LABS: Absolute Lymphocytes (CBC) 2.7 K/uL (0.7-4.9); Basophils % 0.6 % (0-1.3); Lymphocytes % 27.2 % (15.3-44.8); MPV 7.5 fL (7.6-11.3)
[2020-11-22 23:53] LABS: Albumin 3.7 g/dL (3.4-5.0); Bilirubin Total 0.2 mg/dL (0.2-1.0); Potassium 3.8 mmol/L (3.5-5.1); Protein, Total 7.9 g/dL (6.4-8.2)
[2020-11-23] MEDS ORDERED: HYDROMORPHONE HCL 2 MG/ML inj ONE (00:06)
[2020-11-23] MEDS ORDERED: ONDANSETRON 4 MG/2 ML VIAL ONE ×2 (00:14→01:20)
[2020-11-23] MEDS ORDERED: NA CHLORIDE 0.9% 1,000 ML ONE (00:14)
--- NOTE | 2020-11-23 01:00 | ER ---
Nurse's Notes [facility] Name: Ana Lilia Kline Age: 25 yrs Sex: Female : 1995 Arrival Date: 11/22/2020 Time: 21:33 Bed 2 Private MD: Diagnosis: Presentation: 11/22 21:52 Chief complaint: Patient states: was here today and diagnosed with abscess on spinal, em was given a pain shot and told it would get better, denies fever, had it drained 1 week ago. Coronavirus screen: Vaccine status: Patient reports receiving the 2nd dose of the covid vaccine. Ebola Screen: Patient negative for fever greater than or equal to 101.5 degrees Fahrenheit, and additional compatible Ebola Virus Disease symptoms Patient denies exposure to infectious person. Patient denies travel to an Ebola-affected area in the 21 days before illness onset. No symptoms or risks identified at this time. Initial Sepsis Screen: Does the patient meet any 2 criteria? RR > 20 per min. HR > 90 bpm. Does the patient have a suspected source of infection? Yes: Skin breakdown/wound. Risk Assessment: Do you want to hurt yourself or someone else? Patient reports no desire to harm self or others. Onset of symptoms was November 22, 2020. 21:52 Method Of Arrival: Ambulatory em 21:52 Acuity: KATY 2 em 23:14 Note Pt verbalized frustration when giving Zofran and Morphine stating that stuff wg doesn't do anything. When asked what helps she stated something stronger!. 11/23 01:50 Note Pt got upset and took IV apart from S. Lock resulting in blood all over the floor. wg Bleeding controlled. IV catheter still in patient, IV verified for patency and resecurred. Triage Assessment: 11/22 22:15 General: Appears uncomfortable, obese, well nourished. General: Behavior is anxious, wg restless. Pain: Complains of pain in back- lumbar spine "radiates up my back" Pain currently is 15 out of 10 on a pain scale. Quality of pain is described as sharp, shooting, Pain began All day. Had abscess to lumbar region of back drained on Sat. Alleviated by nothing. Aggravated by increased activity, repositioning, Will not sit down. Pacing in room. EENT: No deficits noted. Neuro: No deficits noted. Cardiovascular: No deficits noted. Respiratory: No deficits noted. Breath sounds are clear bilaterally. Onset: The symptoms/episode began/occurred GI: No deficits noted. : No deficits noted. Derm: No deficits noted. Musculoskeletal: No deficits noted. Good ROM, pacing in room. Neurologically intact. 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 - Social history:: Smoking status: Patient reports the use of cigarette tobacco products, smokes one-half pack cigarettes per day. Assessment: 11/23 01:22 Reassessment: pt very upset states she does not want to be transferred does not think bb her pain will be adequately managed, does not think she can lie on her back in an ambulance, is not sure if her pain will be adequately managed at another hospital. Pt removed IV tubing from IV catheter and left blood all over the floor. Pt pacing, tachypneic, Dr Bagley notified. Vital Signs: 11/22 21:52 Pulse 158; Resp 38; Temp 97.8; Pulse Ox 99% on R/A; Weight 127.01 kg; Height 5 ft. 2 em in. (157.48 cm); 21:56 BP 123 / 48; em 23:30 BP 129 / 55; Pulse 140; Resp 20; Pulse Ox 99% on R/A; Pain 10/10; wg 23:30 Pain 7/10; wg 11/23 01:01 Pulse 140; Pain 10/10; wg 01:30 BP 128 / 54; Pulse 130; Resp 20; Pulse Ox 99% on R/A; Pain 7/10; wg 11/22 21:52 Body Mass Index 51.21 (127.01 kg, 157.48 cm) em ED Course: 11/22 21:33 Patient arrived in ED. bp1 21:54 Triage completed. em 21:54 Arm band placed on. em 21:58 Alexandro Bagley MD is Attending Physician. saeid 22:15 Mumtaz Burt, RN is Primary Nurse. wg 23:05 Inserted saline lock: 20 gauge in left antecubital area, using aseptic technique. Blood wg collected. 23:54 Chest Single View XRAY In Process Unspecified. EDMS 11/23 00:55 initiated a transfer with Amanda from [facility]. mw2 01:24 [facility] denied due to capacity. mw2 01:38 initiated a transfer with Bethany Yu from [facility]. mw2 01:46 [facility] denied due to campuses. mw2 02:10 initiated a transfer with Hussain from [facility] transfer [facility]. mw2 02:12 [facility] denied due to capacity. mw2 02:33 IV catheter on bed, pt DC'd own IV, catheter intact. ea Administered Medications: 11/22 23:12 Drug: NS 0.9% 1000 ml Route: IV; Rate: 1 bolus; Infused Over: 30 mins; Site: left antecubital; 23:45 Follow up: IV Status: Completed infusion; IV Intake: 1000ml 23:13 Drug: morphine 4 mg Route: IVP; Infused Over: 1 mins; Site: left antecubital; 11/23 00:10 Follow up: Response: No adverse reaction; Pain is decreased 11/22 23:13 Drug: Zofran (Ondansetron) 4 mg Route: IVP; Rate: bolus; Infused Over: 1 mins; Site: wg left antecubital; 11/23 00:10 Follow up: Response: No adverse reaction 11/22 23:46 Drug: Dilaudid (HYDROmorphone) 1 mg Route: IVP; Site: left antecubital; 11/23 00:08 Follow up: Response: No adverse reaction; Pain is decreased 11/22 23:47 Drug: Zofran (Ondansetron) 4 mg Route: IVP; Site: left antecubital; 11/23 00:08 Follow up: Response: No adverse reaction 00:03 Drug: NS 0.9% 1000 ml Route: IV; Rate: 1 bolus; Infused Over: 30 mins; Site: left wg antecubital; 01:00 Drug: Dilaudid (HYDROmorphone) 1 mg Route: IVP; Site: left antecubital; 01:53 Follow up: Response: No adverse reaction; Pain is decreased 01:01 Drug: Dilaudid (HYDROmorphone) 1 mg Route: IVP; Site: left antecubital; 01:53 Follow up: Response: No adverse reaction; Pain is decreased 01:01 Drug: Zofran (Ondansetron) 4 mg Route: IVP; Site: left antecubital; 01:53 Follow up: Response: No adverse reaction Intake: 11/22 23:45 IV: 1000ml; Total: 1000ml. Outcome: 11/23 01:00 ER care complete, transfer ordered by . saeid 02:35 Eloped from patient exam room, Time discovered patient gone: November 23, 2020 at ea 02:35 02:37 Patient left the ED. ea Signatures: Dispatcher [employer] Alexandro Mansfield MD MD cha Munoz, Edgar, RN RN Sommer Reyes RN RN bb Antunez, Elena, RN RN ea [place], MyKena [facility] Lo Grimes Liam, RN
--- NOTE | 2020-11-23 01:01 | EDPHYS ---
Physician Documentation [facility] Name: Ana Lilia Kline Age: 25 yrs Sex: Female : 1995 Arrival Date: 11/22/2020 Time: 21:33 Bed 2 Private MD: JOLANTA Physician Alexandro Bagley HPI: 11/22 22:41 This 25 yrs old Female presents to ER via Ambulatory with complaints of saeid Spinal Pain, Breathing Difficulty. 22:41 The patient has shortness of breath at rest, with light activity. Onset: The saeid symptoms/episode began/occurred 2 day(s) ago. Duration: The symptoms are continuous, and are steadily getting worse. The patient's shortness of breath is aggravated by nothing, is alleviated by nothing. 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 - Social history:: Smoking status: Patient reports the use of cigarette tobacco products, smokes one-half pack cigarettes per day. ROS: 22:42 Eyes: Negative for injury, pain, redness, and discharge, ENT: Negative for injury, saeid pain, and discharge, Neck: Negative for injury, pain, and swelling, Cardiovascular: Negative for chest pain, palpitations, and edema, Respiratory: Negative for shortness of breath, cough, wheezing, and pleuritic chest pain, Abdomen/GI: Negative for abdominal pain, nausea, vomiting, diarrhea, and constipation, : Negative for injury, bleeding, discharge, and swelling, MS/Extremity: Negative for injury and deformity, Skin: Negative for injury, rash, and discoloration, Neuro: Negative for headache, weakness, numbness, tingling, and seizure, Psych: Negative for depression, anxiety, suicide ideation, homicidal ideation, and hallucinations, Allergy/Immunology: Negative for hives, rash, and allergies, Endocrine: Negative for neck swelling, polydipsia, polyuria, polyphagia, and marked weight changes, Hematologic/Lymphatic: Negative for swollen nodes, abnormal bleeding, and unusual bruising. 22:42 Constitutional: Positive for anxious. 22:42 Respiratory: Positive for shortness of breath, at rest. 22:42 Back: Positive for pain at rest, pain with movement, of the lumbar area. Exam: 22:42 Constitutional: This is a well developed, well nourished patient who is awake, alert, saeid and in no acute distress. Head/Face: Normocephalic, atraumatic. Eyes: Pupils equal round and reactive to light, extra-ocular motions intact. Lids and lashes normal. Conjunctiva and sclera are non-icteric and not injected. Cornea within normal limits. Periorbital areas with no swelling, redness, or edema. ENT: Nares patent. No nasal discharge, no septal abnormalities noted. Tympanic membranes are normal and external auditory canals are clear. Oropharynx with no redness, swelling, or masses, exudates, or evidence of obstruction, uvula midline. Mucous membranes moist. Neck: Trachea midline, no thyromegaly or masses palpated, and no cervical lymphadenopathy. Supple, full range of motion without nuchal rigidity, or vertebral point tenderness. No Meningismus. Chest/axilla: Normal chest wall appearance and motion. Nontender with no deformity. No lesions are appreciated. Respiratory: Lungs have equal breath sounds bilaterally, clear to auscultation and percussion. No rales, rhonchi or wheezes noted. No increased work of breathing, no retractions or nasal flaring. Abdomen/GI: Soft, non-tender, with normal bowel sounds. No distension or tympany. No guarding or rebound. No evidence of tenderness throughout. Skin: Warm, dry with normal turgor. Normal color with no rashes, no lesions, and no evidence of cellulitis. MS/ Extremity: Pulses equal, no cyanosis. Neurovascular intact. Full, normal range of motion. Neuro: Awake and alert, GCS 15, oriented to person, place, time, and situation. Cranial nerves II-XII grossly intact. Motor strength 5/5 in all extremities. Sensory grossly intact. Cerebellar exam normal. Normal gait. 22:42 Cardiovascular: Rate: tachycardic, Rhythm: regular, Pulses: Pulses are 4+ in bilateral radial, brachial, femoral, popliteal, posterior tibial and and dorsalis pedis arteries.. Heart sounds: normal, Edema: is not appreciated, JVD: is not appreciated. 23:39 Musculoskeletal/extremity: DVT Exam: No signs of deep vein thrombosis. no pain, no saeid swelling, no tenderness, negative Homans' sign noted on exam, no appreciated bluish discoloration, no erythema, no increased warmth. Vital Signs: 21:52 Pulse 158; Resp 38; Temp 97.8; Pulse Ox 99% on R/A; Weight 127.01 kg; Height 5 ft. 2 em in. (157.48 cm); 21:56 BP 123 / 48; em 23:30 BP 129 / 55; Pulse 140; Resp 20; Pulse Ox 99% on R/A; Pain 10/10; wg 23:30 Pain 7/10; wg 11/23 01:01 Pulse 140; Pain 10/10; wg 01:30 BP 128 / 54; Pulse 130; Resp 20; Pulse Ox 99% on R/A; Pain 7/10; wg 11/22 21:52 Body Mass Index 51.21 (127.01 kg, 157.48 cm) em MDM: 11/22 21:59 Patient medically screened. saeid 22:43 Differential diagnosis: strain, contusion, UTI, Anemia Anxiety Reaction. Antibiotic saeid administration: Not indicated. The patient's [place] Deep Vein Thrombosis Score was calculated as follows: Heart Rate >100 BPM (1.5 Pts). The patient's pulmonary embolism risk score was calculated as follows: the patients heart rate is greater than 100 beats per minute (1.5 Pts). Immunization status:. Data reviewed: vital signs, nurses notes, lab test result(s), radiologic studies, CT scan. Data interpreted: pvc monitor: rate is 158 beats/min, rhythm is regular, Pulse oximetry: is not applicable for this patient encounter. Test interpretation: by ED physician or midlevel provider:. Counseling: I had a detailed discussion with the patient and/or guardian regarding: the historical points, exam findings, and any diagnostic results supporting the discharge/admit diagnosis, lab results, the need for outpatient follow up, for definitive care, a neurosurgeon. 11/22 22:40 Order name: CBC with Diff; Complete Time: 00:42 [facility] 11/22 22:40 Order name: Comprehensive Metabolic Panel; Complete Time: 00:42 [facility] 11/22 22:40 Order name: Sed Rate; Complete Time: 00:42 [facility] 11/22 23:34 Order name: D-Dimer [facility] 11/22 23:34 Order name: Chest Single View XRAY [facility] 11/23 00:45 Order name: BNP; Complete Time: 01:48 [facility] 11/23 00:45 Order name: Troponin (emerg Dept Use Only); Complete Time: 01:48 [facility] 11/22 22:40 Order name: Urine Dipstick-Ancillary (obtain specimen) [facility] 11/22 22:40 Order name: Urine Test (obtain specimen) [facility] 11/22 23:34 Order name: EKG - Nurse/Tech [facility] Administered Medications: 23:12 Drug: NS 0.9% 1000 ml Route: IV; Rate: 1 bolus; Infused Over: 30 mins; Site: left antecubital; 23:45 Follow up: IV Status: Completed infusion; IV Intake: 1000ml 23:13 Drug: morphine 4 mg Route: IVP; Infused Over: 1 mins; Site: left antecubital; 11/23 00:10 Follow up: Response: No adverse reaction; Pain is decreased 11/22 23:13 Drug: Zofran (Ondansetron) 4 mg Route: IVP; Rate: bolus; Infused Over: 1 mins; Site: left antecubital; 11/23 00:10 Follow up: Response: No adverse reaction 11/22 23:46 Drug: Dilaudid (HYDROmorphone) 1 mg Route: IVP; Site: left antecubital; 11/23 00:08 Follow up: Response: No adverse reaction; Pain is decreased 11/22 23:47 Drug: Zofran (Ondansetron) 4 mg Route: IVP; Site: left antecubital; 11/23 00:08 Follow up: Response: No adverse reaction 00:03 Drug: NS 0.9% 1000 ml Route: IV; Rate: 1 bolus; Infused Over: 30 mins; Site: left antecubital; 01:00 Drug: Dilaudid (HYDROmorphone) 1 mg Route: IVP; Site: left antecubital; wg 01:53 Follow up: Response: No adverse reaction; Pain is decreased wg 01:01 Drug: Dilaudid (HYDROmorphone) 1 mg Route: IVP; Site: left antecubital; wg 01:53 Follow up: Response: No adverse reaction; Pain is decreased wg 01:01 Drug: Zofran (Ondansetron) 4 mg Route: IVP; Site: left antecubital; wg 01:53 Follow up: Response: No adverse reaction wg Disposition Summary: 11/23/20 02:37 Eloped Disposition: after being seen by provider ea Reason: unknown(11/23/20 02:37) ea Signatures: Dispatcher [employer] Alexandro Mansfield MD MD cha Munoz, Edgar, RN RN Apple Villanueva RN RN ea Gamba, Liam, RN wg Corrections: (The following items were deleted from the chart) 01:00 01:00 to [facility] 01:00 01:00 Low back pain - 3.4 x 1.9 cm L5 subacute/chronic seroma [facility] 01:03 00:54 CORONAVIRUS+MR.LAB.BRZ ordered. EDMS EDMS 02:37 01:00 [facility] 02:37 01:00 Higher level of care [facility] 02:37 01:00 Stable [facility] 02:37 01:00 new [facility] 02:37 01:00 have improved [facility] 02:37 01:00 to [facility] 02:37 01:00 Low back pain - 3.4 x 1.9 cm L5 subacute/chronic seroma, intractable saeid saeid
[2020-11-23] MEDS ORDERED: HYDROMORPHONE HCL 1 MG/ML INJ ONE ×2 (01:20→01:21)
[2020-11-23 01:37] LABS: NT PRO-BNP 26 pg/mL (<125); Troponin (Emerg Dept Use Only) < 0.02 ng/mL (0.0-0.045)
[2020-11-23 02:51] VITALS: TEMP 97.8; O2SAT 99
[2020-11-23 02:57] VITALS: BP 128/54
--- NOTE | 2020-11-23 07:03 | RAD REPORT ---
EXAM DESCRIPTION: RAD - Chest Single View - 11/22/2020 11:54 pm CLINICAL HISTORY: DYSPNEA COMPARISON: Chest Single View dated 01/05/2016; Spine Lumbar W/Cont dated 11/22/2020; Spine Lumbar W/C ont dated 10/23/2020 FINDINGS: Lines: None. Lungs: Diffuse increased interstitial markings and hazy opacities bilaterally. Pleural: No significant pleural effusions or pneumothorax. Cardiac: The heart size is within normal limits. Bones: No acute fractures. Other: IMPRESSION: Increased prominence of the vasculature and pulmonary interstitium favored to represent edema but multifocal pneumonia difficult to entirely exclude.
== END 2020-11-23 02:37 | disposition left against medical advice (07) ==
LOC: ER 21:32
DX: M54.9 Dorsalgia, unspecified (principal); F17.210 Nicotine dependence, cigarettes, uncomplicated; Z88.1 Allergy status to other antibiotic agents; Z88.5 Allergy status to narcotic agent; Z88.8 Allergy status to other drugs, medicaments and biological substances
CPT/HCPCS: 96361; 85025; 36415; 85379; 85652; 84484; 80053; 83880; 71045; 96375; 96374; 99284; J1170 ×2; J7030; J2405 ×2

== ENCOUNTER 2021-01-06 13:58 | Emergency (ER) | payer OTHER ==
[2021-01-06] MEDS ORDERED: CEFTRIAXONE 1000 MG/VIAL ONE (14:41)
[2021-01-06] MEDS ORDERED: MORPHINE 2 MG/ML SYR ONE (14:41)
[2021-01-06] MEDS ORDERED: ONDANSETRON 4 MG/2 ML VIAL ONE (14:41)
[2021-01-06] MEDS ORDERED: NA CHLORIDE 0.9% 1,000 ML ONE (14:42)
[2021-01-06] MEDS ORDERED: KETOROLAC 30 MG/ML INJ ONE (14:42)
[2021-01-06] MEDS ORDERED: NA CHLORIDE 0.9% 50 ML ONE (14:42)
[2021-01-06 14:45] LABS: Urine Blood Negative (Negative); Urine Glucose Negative (Negative); Urine Protein Negative (Negative); Urine Specific Gravity >=1.030 (1.005-1.030); Urine pH 6.5 (5.0-7.0)
[2021-01-06] MEDS ORDERED: HYDROMORPHONE HCL 1 MG/ML INJ ONE (14:57)
[2021-01-06 14:58] LABS: Absolute Lymphocytes (CBC) 2.7 K/uL (0.7-4.9); Basophils % 0.7 % (0-1.3); Hematocrit 31.3 % (36.0-45.0); Lymphocytes % 29.4 % (15.3-44.8); MPV 7.6 fL (7.6-11.3); RBC Red Blood Cell Count 4.03 M/uL (3.86-4.86)
[2021-01-06 15:16] LABS: ALT/SGPT 49 U/L (12-78); AST/SGOT 29 U/L (15-37); Albumin 3.7 g/dL (3.4-5.0); Alkaline Phosphatase 104 U/L (45-117); BUN Blood Urea Nitrogen 8 mg/dL (7-18); Bicarbonate 24 mmol/L (21-32); Bilirubin Direct < 0.1 mg/dL (0-0.2); Bilirubin Total 0.3 mg/dL (0.2-1.0); Glucose Level 105 mg/dL (74-106); Lipase 52 U/L (73-393); Potassium 3.8 mmol/L (3.5-5.1); Sodium Level 143 mmol/L (136-145)
--- NOTE | 2021-01-06 15:41 | RAD REPORT ---
EXAM DESCRIPTION: US - Renal Ultrasound-Complete - 01/06/2021 3:30 pm CLINICAL HISTORY: hydronep, stones;Pain COMPARISON: Renal Ultrasound-Complete dated 06/16/2020; Renal Ultrasound-Complete dated 05/27/2020 FINDINGS: The kidneys are normal in size, shape and echotexture. No evidence of stones or hydronephrosis. The urinary bladder is incompletely distended without gross abnormality seen. IMPRESSION: Unremarkable renal sonogram.
[2021-01-06] MEDS ORDERED: HYDROMORPHONE HCL 0.5 MG/0.5 ML INJ ONE (16:01)
--- NOTE | 2021-01-06 16:25 | EDPHYS ---
Physician Documentation [facility] Name: Ana Lilia Kline Age: 25 yrs Sex: Female : 1995 Arrival Date: 01/06/2021 Time: 13:59 Bed 2 Private MD: Alexandro Chaudhry HPI: 01/06 16:15 This 25 yrs old Female presents to ER via Ambulatory with complaints of saeid Possible Kidney Stone. 16:15 The patient presents with abdominal pain in the left lower quadrant. Onset: The saeid symptoms/episode began/occurred 1 day(s) ago. The patient complains of pain in the left mid back. The pain radiates to the left low back and left mid back. Onset: The symptoms/episode began/occurred 1 day(s) ago. Modifying factors: The symptoms are alleviated by nothing. the symptoms are aggravated by nothing. The symptoms radiate to the left flank. Historical: - Allergies: 14:11 Demerol; ll1 14:11 Doxycycline; ll1 14:11 Haldol; ll1 14:11 Reglan; ll1 14:11 Toradol; ll1 14:11 Zithromax; ll1 - PMHx: 14:11 Asthma; Endometrosis; Kidney stones; polycystic ovarian disease; sudotumor ceribri; ll1 - PSHx: 14:11 Cholecystectomy; Kidney stent placed and removed; L5\T\6 discectomy; Multiple I\T\D's from ll 1 abcesses; Right fallopen tube removed from torson; seroma removed from back; - Immunization history:: Client reports receiving the 2nd dose of the Covid vaccine. - Social history:: Smoking status: Patient reports the use of cigarette tobacco products, smokes one-half pack cigarettes per day. - Family history:: not pertinent. ROS: 16:15 Constitutional: Negative for fever, chills, and weight loss, Eyes: Negative for injury, saeid pain, redness, and discharge, ENT: Negative for injury, pain, and discharge, Neck: Negative for injury, pain, and swelling, Cardiovascular: Negative for chest pain, palpitations, and edema, Respiratory: Negative for shortness of breath, cough, wheezing, and pleuritic chest pain, : Negative for injury, bleeding, discharge, and swelling, MS/Extremity: Negative for injury and deformity, Skin: Negative for injury, rash, and discoloration, Neuro: Negative for headache, weakness, numbness, tingling, and seizure, Psych: Negative for depression, anxiety, suicide ideation, homicidal ideation, and hallucinations, Allergy/Immunology: Negative for hives, rash, and allergies, Endocrine: Negative for neck swelling, polydipsia, polyuria, polyphagia, and marked weight changes, Hematologic/Lymphatic: Negative for swollen nodes, abnormal bleeding, and unusual bruising. 16:15 Abdomen/GI: Positive for abdominal pain, of the posterior aspect of left lateral abdomen, anterior aspect of left lateral abdomen and left lower quadrant. 16:15 Back: Positive for flank pain, on the left. Exam: 16:15 Constitutional: This is a well developed, well nourished patient who is awake, alert, saeid and in no acute distress. Head/Face: Normocephalic, atraumatic. Eyes: Pupils equal round and reactive to light, extra-ocular motions intact. Lids and lashes normal. Conjunctiva and sclera are non-icteric and not injected. Cornea within normal limits. Periorbital areas with no swelling, redness, or edema. ENT: Nares patent. No nasal discharge, no septal abnormalities noted. Tympanic membranes are normal and external auditory canals are clear. Oropharynx with no redness, swelling, or masses, exudates, or evidence of obstruction, uvula midline. Mucous membranes moist. Neck: Trachea midline, no thyromegaly or masses palpated, and no cervical lymphadenopathy. Supple, full range of motion without nuchal rigidity, or vertebral point tenderness. No Meningismus. Chest/axilla: Normal chest wall appearance and motion. Nontender with no deformity. No lesions are appreciated. Cardiovascular: Regular rate and rhythm with a normal S1 and S2. No gallops, murmurs, or rubs. Normal PMI, no JVD. No pulse deficits. Respiratory: Lungs have equal breath sounds bilaterally, clear to auscultation and percussion. No rales, rhonchi or wheezes noted. No increased work of breathing, no retractions or nasal flaring. Abdomen/GI: Soft, non-tender, with normal bowel sounds. No distension or tympany. No guarding or rebound. No evidence of tenderness throughout. Skin: Warm, dry with normal turgor. Normal color with no rashes, no lesions, and no evidence of cellulitis. MS/ Extremity: Pulses equal, no cyanosis. Neurovascular intact. Full, normal range of motion. Neuro: Awake and alert, GCS 15, oriented to person, place, time, and situation. Cranial nerves II-XII grossly intact. Motor strength 5/5 in all extremities. Sensory grossly intact. Cerebellar exam normal. Normal gait. Psych: Awake, alert, with orientation to person, place and time. Behavior, mood, and affect are within normal limits. 16:15 Back: pain, that is mild, that is moderate, ROM is normal, kyphosis, CVA tenderness, that is mild, is noted on the left. Vital Signs: 14:12 BP 163 / 105; Pulse 140; Resp 30; Temp 98.4; Pulse Ox 100% on R/A; Weight 122.47 kg; ll1 Height 5 ft. 2 in. (157.48 cm); Pain 10/10; 14:44 Pain 9/10; tw5 14:44 Pain 6/10; tw5 14:46 BP 108 / 91; Pulse 124; Resp 18; Pulse Ox 99% on R/A; Pain 6/10; tw5 16:31 tw5 14:12 Body Mass Index 49.38 (122.47 kg, 157.48 cm) ll1 16:31 Unable to obtain a last set of vitals as patient is stating they have to leave and tw5 cannot wait MDM: 14:11 Patient medically screened. saeid 16:18 Differential diagnosis: nephrolithiasis, pyelonephritis, UTI, diverticulitis, saeid diverticulitis, non-specific abd pain, Pyelonephritis, urinary tract infection. Data reviewed: vital signs, nurses notes, lab test result(s), radiologic studies, CT scan. Data interpreted: crystal grinder: not applicable for this patient encounter. rate is 124 beats/min, rhythm is regular, Pulse oximetry: on. Counseling: I had a detailed discussion with the patient and/or guardian regarding: the historical points, exam findings, and any diagnostic results supporting the discharge/admit diagnosis, lab results, radiology results, the need for outpatient follow up, for definitive care, a family practitioner, a urologist. 01/06 14:06 Order name: Basic Metabolic Panel; Complete Time: 15:52 saeid 01/06 14:06 Order name: CBC with Diff; Complete Time: 15:52 [facility] 01/06 14:06 Order name: Hepatic Function; Complete Time: 15:52 [facility] 01/06 14:06 Order name: Lipase; Complete Time: 15:52 [facility] 01/06 14:44 Order name: Urine Dipstick-Ancillary; Complete Time: 15:52 EDMS 01/06 14:51 Order name: Urine --Ancillary (enter results) 01/06 14:48 Order name: US Rp Exam Complete; Complete Time: 15:52 [facility] 01/06 14:06 Order name: IV Saline Lock; Complete Time: 14:26 [facility] 01/06 14:06 Order name: Labs collected and sent; Complete Time: 14:26 [facility] 01/06 14:06 Order name: Urine Test (obtain specimen); Complete Time: 14:44 [facility] Administered Medications: 14:22 Not Given (Patient is allergic to this medicationn): Ketorolac 30 mg IVP once tw5 14:23 Drug: morphine 4 mg Route: IVP; Site: right antecubital; tw5 14:44 Follow up: Pain 9/10 Adult; Response: No adverse reaction; Pain is decreased; RASS: tw5 Alert and Calm (0) 14:25 Drug: Zofran (Ondansetron) 4 mg Route: IVP; Site: left antecubital; tw5 14:44 Follow up: Response: No adverse reaction tw5 14:28 Drug: NS 0.9% 1000 ml Route: IV; Rate: 1 bolus; Site: right antecubital; tw5 14:38 Drug: Dilaudid (HYDROmorphone) 1 mg Route: IVP; Site: right antecubital; tw5 14:44 Follow up: Pain 6/10 Adult; Response: No adverse reaction; Pain is decreased tw5 14:43 Drug: Rocephin (cefTRIAXone) 1 grams Route: IV; Rate: per protocol; Site: right tw5 antecubital; 15:40 Drug: Dilaudid (HYDROmorphone) 0.5 mg Route: IVP; Site: left hand; ch5 Disposition Summary: 01/06/21 16:24 Discharge Ordered Location: Home saeid Problem: new saeid Symptoms: have improved saeid Condition: Stable saeid Diagnosis - Abdominal tenderness saeid Followup: saeid - With: Private Physician - When: 2 - 3 days - Reason: Recheck today's complaints, Continuance of care, Re-evaluation by your physician Followup: [facility] - With: Constantino Moraes MD - When: 2 - 3 days - Reason: Recheck today's complaints, Continuance of care, Re-evaluation by your physician Discharge Instructions: - Discharge Summary Sheet saeid - Abdominal Pain, Adult saeid - Kidney Stones saeid - Kidney Stones, Tjex-li-[id number] saeid - Abdominal Pain, Adult, [id number] [facility] Forms: - Medication Reconciliation Form [facility] - Thank You Letter [facility] - Antibiotic Education [facility] - Prescription Opioid Use [facility] Prescriptions: - Flomax 0.4 mg Oral capsule - take 1 capsule by ORAL route once daily 1/2 hour following the same meal each [facility] day; 20 capsule; Refills: 0, Product Selection Permitted - Cipro 250 mg Oral Tablet - take 1 tablet by ORAL route every 12 hours; 14 tablet; Refills: 0, Product [facility] Selection Permitted - Tylenol-Codeine #3 300 mg-30 mg Oral - take 2 tablet by ORAL route every 4-6 hours; 15 tablet; Refills: 0, Product [facility] Selection Permitted Signatures: Dispatcher [employer] EDMS Alexandro Bagley MD MD cha Lewis, Lynsay, RN RN ll1 Johnathan Packer RN RN ch5 Jillian Long 5 Corrections: (The following items were deleted from the chart) 15:06 14:07 Stone Protocol+[id number].RAD.BRZ ordered. EDMD EDMS
--- NOTE | 2021-01-06 16:25 | ER ---
Nurse's Notes [facility] Name: Ana Lilia Kline Age: 25 yrs Sex: Female : 1995 Arrival Date: 01/06/2021 Time: 13:59 Bed 2 Private MD: Diagnosis: Abdominal tenderness Presentation: 01/06 14:12 Chief complaint: Patient states: L flank pain for 1 week, states she knows she has a ll1 kidney stone. + N/V. No known fever. Unable to sit still. Coronavirus screen: Vaccine status: Patient reports receiving the 2nd dose of the covid vaccine. Client denies travel out of the [place] in the last 14 days. At this time, the client does not indicate any symptoms associated with coronavirus-19. Ebola Screen: Patient denies travel to an Ebola-affected area in the 21 days before illness onset. Initial Sepsis Screen: Does the patient meet any 2 criteria? RR > 20 per min. HR > 90 bpm. Yes Does the patient have a suspected source of infection? Yes: Other: kidney stone/L flank pain. Risk Assessment: Do you want to hurt yourself or someone else? Patient reports no desire to harm self or others. Onset of symptoms was December 31, 2020. 14:12 Method Of Arrival: Ambulatory ll1 14:12 Acuity: KATY 3 ll1 Triage Assessment: 16:33 General: Appears in no apparent distress. Behavior is calm, cooperative. iw Historical: - Allergies: 14:11 Demerol; ll1 14:11 Doxycycline; ll1 14:11 Haldol; ll1 14:11 Reglan; ll1 14:11 Toradol; ll1 14:11 Zithromax; ll1 - PMHx: 14:11 Asthma; Endometrosis; Kidney stones; polycystic ovarian disease; sudotumor ceribri; ll1 - PSHx: 14:11 Cholecystectomy; Kidney stent placed and removed; L5\\T\\6 discectomy; Multiple I\\T\\D's from ll 1 abcesses; Right fallopen tube removed from torson; seroma removed from back; - Immunization history:: Client reports receiving the 2nd dose of the Covid vaccine. - Social history:: Smoking status: Patient reports the use of cigarette tobacco products, smokes one-half pack cigarettes per day. - Family history:: not pertinent. Screenin:15 Abuse screen: Denies threats or abuse. Nutritional screening: No deficits noted. ll1 Tuberculosis screening: No symptoms or risk factors identified. 14:46 Fall Risk None identified. tw5 Assessment: 14:18 General: Reports "I feel like I am being stabbed in my left side". Pain: Complains of tw5 pain in left lower quadrant Pain currently is 10 out of 10 on a pain scale. Quality of pain is described as stabbing. GI: Bowel sounds present X 4 quads. Abdomen is tender to palpation in left lower quadrant. GI: Reports diarrhea. : Reports pain. Musculoskeletal: Circulation, motion, and sensation intact. 14:46 Pain: Pain currently is 6 out of 10 on a pain scale. Respiratory: Airway is patent tw5 Trachea midline Respiratory effort is Respiratory pattern is. 16:31 General: Reports " I dont have time to wait for the docter to print off my discharge tw5 paper, I need to go now my ride is here". Vital Signs: 14:12 BP 163 / 105; Pulse 140; Resp 30; Temp 98.4; Pulse Ox 100% on R/A; Weight 122.47 kg; ll1 Height 5 ft. 2 in. (157.48 cm); Pain 10/10; 14:44 Pain 9/10; tw5 14:44 Pain 6/10; tw5 14:46 BP 108 / 91; Pulse 124; Resp 18; Pulse Ox 99% on R/A; Pain 6/10; tw5 16:31 tw5 14:12 Body Mass Index 49.38 (122.47 kg, 157.48 cm) ll1 16:31 Unable to obtain a last set of vitals as patient is stating they have to leave and tw5 cannot wait ED Course: 13:59 Patient arrived in ED. as 14:03 Alexandro Bagley MD is Attending Physician. [facility] 14:11 Jillian Long is Primary Nurse. tw5 14:11 Arm band placed on Patient placed in an exam room, on a stretcher. ll1 14:14 Triage completed. ll1 14:25 Initial lab(s) drawn, by me, sent to lab. Inserted saline lock: 20 gauge in right mh5 antecubital area, using aseptic technique. Blood collected. 14:26 Patient has correct armband on for positive identification. Placed in gown. Bed in low mh5 position. Call light in reach. Side rails up X 1. Pulse ox on. NIBP on. 14:26 Basic Metabolic Panel Sent. tw5 14: CBC with Diff Sent. tw5 14: Hepatic Function Sent. tw 14: Lipase Sent. tw5 14:46 Door closed. Noise minimized. Moved to private room. Warm blanket given. Verbal tw5 reassurance given. 14:46 Urine Dipstick-Ancillary Sent. tw 14:46 Urine collected:. tw5 15:30 US Rp Exam Complete In Process Unspecified. EDMS 16:10 IV discontinued, Pressure dressing applied. 5 16:23 Constantino Moraes MD is Referral Physician. saeid 16:31 No provider procedures requiring assistance completed. tw5 16:33 IV discontinued, intact, bleeding controlled, No redness/swelling at site. Pressure iw dressing applied. Administered Medications: 14:22 Not Given (Patient is allergic to this medicationn): Ketorolac 30 mg IVP once tw5 14:23 Drug: morphine 4 mg Route: IVP; Site: right antecubital; tw5 14:44 Follow up: Pain 9/10 Adult; Response: No adverse reaction; Pain is decreased; RASS: tw5 Alert and Calm (0) 14:25 Drug: Zofran (Ondansetron) 4 mg Route: IVP; Site: left antecubital; tw5 14:44 Follow up: Response: No adverse reaction tw5 14:28 Drug: NS 0.9% 1000 ml Route: IV; Rate: 1 bolus; Site: right antecubital; tw5 14:38 Drug: Dilaudid (HYDROmorphone) 1 mg Route: IVP; Site: right antecubital; tw5 14:44 Follow up: Pain 6/10 Adult; Response: No adverse reaction; Pain is decreased tw5 14:43 Drug: Rocephin (cefTRIAXone) 1 grams Route: IV; Rate: per protocol; Site: right tw5 antecubital; 15:40 Drug: Dilaudid (HYDROmorphone) 0.5 mg Route: IVP; Site: left hand; 5 Outcome: 16:24 Discharge ordered by . saeid 16:31 Discharged to home ambulatory. tw5 16:31 Condition: good 16:31 Discharge instructions given to 16:32 Discharged to home ambulatory. 16:32 Condition: good 16:32 Discharge instructions given to patient, Instructed on discharge instructions, follow up and referral plans. Demonstrated understanding of instructions, follow-up care, medications, Prescriptions given X 3. 16:33 Patient left the ED. Signatures: Dispatcher [employer] EDMS Alexandro Bagley MD MD cha Martinez, Amelia as Williams, Irene, RN RN Barb Preciado 5 Carmencita Forman RN RN ll1 Johnathan Packer RN RN 5 Jillian Long 5
[2021-01-06 16:49] VITALS: BP 108/91; TEMP 98.4; O2SAT 99
== END 2021-01-06 16:33 | disposition home or self-care (01) ==
LOC: ER 13:58
DX: R10.814 Left lower quadrant abdominal tenderness (principal); Z88.6 Allergy status to analgesic agent; Z88.8 Allergy status to other drugs, medicaments and biological substances; F17.210 Nicotine dependence, cigarettes, uncomplicated
CPT/HCPCS: 85025; 80048; 36415; 81025; 80076; 81003; 83690; 76770; 99284; J2270; J1170 ×2; J7030; J2405

== ENCOUNTER 2021-02-01 23:06 | Emergency (ER) | payer OTHER ==
--- OUTSIDE RECORDS SUMMARY | 2021-02-01 23:13 | XMS REPORT | Continuity of Care Document ---
:1995 Author Organization [facility] t Address [address] [place] [address] Care Team Providers Name Role Phone Provider Primary Care Physician Unavailable Attending Clinician Unavailable Singer CASTILLO Attending Clinician Danielle Forman Attending Clinician Unavailable Berkley Kay Attending Clinician Unavailable SEBASTIAN Attending Clinician Unavailable GRETA Attending Clinician Unavailable Yoselyn Doty MD Attending Clinician Leonardo CASTILLO Attending Clinician Berkley Jules MD Attending Clinician Shant MURRAY Attending Clinician Doctor Unassigned, Name Attending Clinician Unavailable Rachelle Kruse Attending Clinician Unavailable Romulo Attending Clinician Unavailable Physician, Primary or Family Admitting Clinician Unavailabl e Referred Admitting Clinician Unavailable PACHECO Admitting Clinician Unavailable Ali Admitting Clinician Unavailable Payers Payer Name Policy Type Policy Number Effective Date Expiration Date Shelia soto [facility] [id number] 2017 00:00:00 [place]ICAID OF [place] [id number] 2018 00:00:00 Problems Condition Condition Condition Status Onset Resolution Last Treating Co mments Source Name Details Category Date Date Treatment Clinician Date Preeclamps Preeclamps Disease Active 2016- U nivers ia ia 2-04 ity of 00:00: [place] 00 Medical Branch Preeclamps Preeclamps Disease Active 2016- U nivers ia, third ia, third 2-03 ity of trimester trimester 00:[facility]: [facility] Acute Acute Disease Active 2015- Univers headache headache 2- ity of 00:00: [place] 00 Medical Branch Papilledem Papilledem Disease Active 2016- U nivers a a 2- ity of 00:00: [place] 00 Medical [place] 36 weeks 36 weeks Disease Active 2015- Unive rs gestation gestation 1-29 ity of of of 00:00: [place] 00 [facility] 26 weeks 26 weeks Disease Active 2016- Unive rs gestation gestation 9-20 ity of of of 00:00: [place] 00 [facility] Hematuria Hematuria Disease Active 2016- Uni vers 9-20 ity of 00:00: [place] 00 Medical [place] Lower Lower Disease Active 2016-0 Univers abdominal abdominal 9-20 ity of pain pain 00:00: [place] 00 Medical Branch Nausea and Nausea and Disease Active 2016-0 U nivers vomiting vomiting 9-06 ity of during during 00:00: [place] 00 [facility] Diarrhea Diarrhea Disease Active 2016-0 Unive rs 9-06 ity of 00:00: [place] 00 Medical Branch Dehydratio Dehydratio Disease Active 2016-0 U nivers n n 9- ity of 00:00: [place] 00 Medical Branch Pseudotumo Pseudotumo Disease Active 2016-0 U nivers r cerebri r cerebri 9-06 ity of 00:00: [place] 00 Medical [place] 24 weeks 24 weeks Disease Active 2016-0 Unive rs gestation gestation 9-06 ity of of of 00:00: [place] 00 [facility] Epigastric Epigastric Disease Active 2016-0 U nivers abdominal abdominal 9-06 ity of pain pain 00:00: [place] [facility] Gastroente Gastroente Disease Active U nivers ritis ritis 9-06 ity of 00:00: [place] [facility] Headache Headache Disease Active Unive rs 8-20 ity of 00:00: [place] [facility] Blurry Blurry Disease Active Univers vision, vision, 8-20 [place] of bilateral bilateral 00:00[place] 21 weeks 21 weeks Disease Active Unive rs gestation gestation 8-20 ity of of of 00:00: [place] 00 [facility] Allergies, Adverse Reactions, Alerts Allergy Allergy Status Severity Reaction(s) Onset Inactive Treating Comm ents Source Name Type Date Date Clinician Unable DA Active U [facility] to 05-05 Assess 00:00: 00 metoclop DA Active U 2020-1 [facility] ramide 03-[address] [facility] 00:00: d 00 Medical [place] metoclop DA Active U MUSCLE SPASM 2020- HC A ramide 03-[address] [facility] 00:00: d 00 Medical Center doxycycl DA Active MO 2020-1 [facility] ine 03-[address] [facility] 00:00: d 00 Medical Center azithrom DA Active MO 2020-1 [facility] ycin 03-[address] [facility] 00:00: d 00 Medical Center doxycycl DA Active MO HIVES, RASH 2020-1 [facility] ine 03-[address] [facility] 00:00: d 00 Medical Center azithrom DA Active MO HIVES, RASH 2020-1 [facility] ycin 03-[address] [facility] 00:00: d 00 Medical [place] Azithrom Propensi Active Anaphylaxis 2020-0 M ethodi [...] Hospita reaction 00 l s to drug KETOROLA DRUG Active Hives 2019- Univers C INGREDI 6-16 ity of 00:00: [place] 00 Medical Branch Ketorola Propensi Active Hives 2018- Univer s c ty to 6-16 ity of adverse 00:00: [place] reaction 00 [facility] doxycycl DA Active SV 2016-0 [facility] ine 2-09 Clear 00:00: Ng 00 [facility] doxycycl DA Active SV THROAT [facility] ine CLOSES 2-09 Clear 00:00: Ng 00 [facility] Doxycycl Drug Active Shortness Of [address] [facility] Allergy Breath 1-17 [facility]: Medical 00 [place] Azithrom Drug Active Shortness Of [facility] Allergy Breath 17 [facility] 00:[facility]: Medical 00 [place] IODINE DRUG Active Swelling 2015-03 Univers INGREDI 2- ity of 00:00: [place] 00 Medical Branch Iodine Propensi Active Swelling 2015-03 Univer s ty to 2 ity of adverse 00:00: [place] reaction 00 [facility] Branch DOXYCYCL DRUG Active Anxiety 2014-03 Univers INE INGREDI 2- ity of 00:00: [place] [address] [facility] AZITHROM DRUG Active Swelling 2014-03 Univer s YCIN INGREDI 2- ity of 00:00: [place] 00 Medical Branch Doxycycl Propensi Active Anxiety 2014-03 Unive rs ine ty to 2- ity of adverse 00:00: [place] reaction 00 [facility] Azithrom Propensi Active Swelling 2014-03 Univ ers ycin ty to 2-23 ity of adverse 00:00: [place] reaction 00 [facility] azithrom DA Active SV 2012-0 [facility] ycin 5-09 Clear 00:00: Ng 00 [facility] azithrom DA Active SV SWELLS [facility] ycin 5-09 Clear 00:00: Ng 00 [facility] Social History Social Habit Start Date Stop Date Quantity Comments Source History of tobacco Cigarette Smoker [facility] Exposure to Not sure University of SARS-CoV-2 (event) [facility] History SDOH [facility] Alcohol Std Drinks Hospit al History SDOH [facility] Tobacco use and 2020-10-21 2020-10-21 Never used [facility] exposure 00:00:00 00:00:00 Hospital History SDOH 2020-10-21 2020-10-21 1 [facility] Alcohol Frequency 00:00:00 00:00:00 Hospita l Alcohol intake 2020-04-27 2020-04-27 0 /d University of 00:00:00 00:00:00 [facility] Cigarettes smoked 2015-11-03 2015-11-03 Univers ity of current (pack per 00:00:00 00:00:00 ) - Reported Branch Cigarette 2015-11-03 2015-11-03 University of pack-years 00:00:00 00:00:00 [facility] Tobacco Comment 2015-11-03 2015-11-03 currently Universit y of 00:00:00 00:00:00 smoking [facility] Sex Ass[birth year] Universit y of 00:00:00 00:00:00 [facility] Smoking Status Start Date Stop Date Source Former smoker 2020-10-21 00:00:00 2020-10-21 00:00:00 [facility] Current every day 2016-04-01 00:00:00 [facility] Medications Ordered Filled Start Stop Current Ordering Indication Dosage Frequency Signature Comments Components Source Medication Medication Date Date Medication? Clinician (SIG) Name Name naproxen 2020-03- No 500mg 500 mg, Univ ers (NAPROSYN) 03-21 Oral, ity of tablet 500 04:30: 03:25 ONCE, 1 [place] as mg 00 :00 dose, On Medical Fri Branch 01/18/21 at 2330, Routine morpHINE 2020-03 No 4mg 4 mg, Slow Un martin injection 4 03-21 IV Push, ity of mg 03:15: 02:15 ONCE, 1 [place] 00 :00 dose, On Medical Fri Branch 01/18/21 at 2215, STAT iohexol 2020-03- No [id number] 120mL 120 mL, Univers (OMNIPAQUE 03-21 Intravenou it y of 350 02:30: 02:21 s, ONCE, 1 [place] BULK-100 00 :00 dose, On Medical mL) Fri Branch injection 01/18/21 at 120 mL 2130, Routine NaCl 0.9% 2020-03- No 1000mL at 999 Uni vers (NS) bolus 03-21 mL/hr, ity of infusion 02:30: 03:10 1,000 mL, [place] as 1,000 mL 00 :00 IV Medical Piggyback, Branch ONCE, 1 dose, On 11/5/21 at 2130, STAT ondansetron 2020-03- No 4mg 4 mg, Slow Univers (ZOFRAN 03-21 IV Push, ity of (PF)) 01:30: 01:45 ONCE, 1 [place] injection 4 00 :00 dose, On Medi nirmala mg Thu Branch 01/18/21 at 2030, Routine morpHINE 2020-03 Yes 4mg 4 mg, Slow Uni vers injection 4 03-21 IV Push, ity of mg 01:26: Q4HPRN, [place] 41 Starting Medical on Thu01/18/21 at 2026, Until Discontinu ed, Routine, Pain (scale 7-10) HYDROcodone 2020- No 1{tbl} 1 tablet, Univers -acetaminop 08-2916 Oral, ity of hen (NORCO 16:15: 15:21 ONCE, 1 [place] as 5) 5-325 mg 00 :00 dose, Thu Med ical tablet 08/29/20 at [facility] tablet 1115, NIKITA FENTanyl PF 2020- No 50ug 50 mcg, Un martin (SUBLIMAZE 08-2916 Slow IV ity o f (PF)) 15:45: 14:46 Push, [place] injection 00 :00 ONCE, 1 Medical 50 mcg dose, Thu [place] 08/29/20 at 1045, STAT FENTanyl PF 2020- No 50ug 50 mcg, Un martin (SUBLIMAZE 08-2916 Slow IV ity o f (PF)) 10:15: 09:14 Push, [place] injection 00 :00 ONCE, 1 Medical 50 mcg dose, [facility] 08/29/20 at 0515, Routine HYDROcodone 2020- No 1{tbl} 1 tablet, Univers -acetaminop 08-2916 Oral, ity of hen (NORCO 06:00: 05:06 ONCE, 1 [place] as 5) 5-325 mg 00 :00 dose, Thu Med ical tablet 08/29/20 at [facility] tablet 0100, NIKITA gadoteridol 2020- No [id number] .2mL/kg 24.4 mL Univers (PROHANCE-2 08-29 (0.2 mL/kg i ty of 0 mL) 04:45: 04:30 ?122 kg), [place] injection 00 :00 Intravenou Medi nirmala 24.4 mL s, ONCE, 1 Branch dose, Tu 08/28/20 at 2345, Routine FENTanyl PF 2020- No 50ug 50 mcg, Un martin (SUBLIMAZE 08-29 Slow IV ity o f (PF)) 03:15: 02:29 Push, [place] injection 00 :00 ONCE, 1 Medical 50 mcg dose, Tue Branch 08/28/20 at 2215, Routine morpHINE 2020- No 4mg 4 mg, Slow Un martin injection 4 08-29 IV Push, ity of mg 01:45: 00:47 ONCE, 1 [place] 00 :00 dose, Tue Medical 08/28/20 at Branch 2045, STAT piperacilli 2020- No 3.375g 3.375 g, Univers n-tazobacta 08-29 IV ity of m (ZOSYN) 01:15: 01:17 Piggyback, [place] 3.375 g in 00 :00 ONCE, 1 Medica l NaCl 0.9% dose, [facility] h (NS) 100 mL 08/28/20 at MINI-BAG 2014, 100 mL
Reas on for Anti-Infec tive: Documented Infection< br>Documen jose Infection Site: Abdominal< br>Duratio n of Therapy: Other (see Comments) vancomycin 2020- No 15mg/kg 1,500 mg Univers 1500 mg in 08-29 (rounded ity of NS 500 mL 01:15: 06:38 from 1,830 [place] IV 00 :00 mg = 15 Medical Piggyback mg/kg ?122 Bran ch RTU 1,500 kg), IV mg Piggyback, ONCE NOW, 1 dose, 08/28/20 at 2015
Re ason for Anti-Infec tive: Documented Infection< br>Documen jose Infection Site: Skin / Soft Tissue
Duration of Therapy: Other (see Comments) FENTanyl PF 2020- No 50ug 50 mcg, Un martin (SUBLIMAZE 08-28 Slow IV ity o f (PF)) 22:00: 22:10 Push, [place] injection 00 :00 ONCE, 1 Medical 50 mcg dose, [facility] Branch 08/28/20 at 1700, Routine ondansetron 2020- No 4mg 4 mg, Slow Univers (ZOFRAN 08-28 IV Push, ity of (PF)) 19:16: 21:12 ONCE, 1 [place] injection 4 00 :00 dose, Tue Med ical mg 08/28/20 at Branch 1430, NIKITA morpHINE 2020- No 4mg 4 mg, Slow Un martin injection 4 08-28 IV Push, ity of mg 19:16: 21:11 ONCE, 1 [place] 00 :00 dose, [facility] Medical 08/28/20 at Branch 1430, STAT diphenhydrA 2020- No 25mg 25 mg, Uni vers MINE 04-28 Oral, ity of (BENADRYL) 05:30: 04:44 ONCE, 1 [place] as tablet 25 00 :00 dose, Fri Medic al mg 04/27/20 at Branch 2330, NIKITA ondansetron 2020- No 4mg 4 mg, Slow Univers (ZOFRAN 04-28 IV Push, ity of (PF)) 04:00: 04:00 ONCE, 1 [place] injection 4 00 :00 dose, Fri Med ical mg 04/27/20 at Branch 2200, NIKITA morpHINE 2020- No 4mg 4 mg, Slow Un martin injection 4 04-28 IV Push, ity of mg 04:00: 03:03 ONCE, 1 [place] 00 :00 dose, Fri Medical 04/27/20 at Branch 2200, STAT acetaminoph 2020- No 1{tbl} 1 tablet, Univers en-codeine 04-28 Oral, ity of (TYLENOL 03:45: 04:43 ONCE, 1 [place] #3) 300-30 00 :00 dose, Fri Medi nirmala mg tablet 1 04/27/20 at Br anch tablet 2145, NIKITA NaCl 0.9% 2020- No 1000mL at 999 Uni vers (NS) bolus 2-13 02-13 mL/hr, ity of infusion 03:00: 05:12 1,000 mL, [place] as 1,000 mL 00 :00 IV Medical Infusion, Branch ONCE, 1 dose, Thu04/27/20 at 2100, NIKITA HYDROcodone Yes [id number] 1{tbl} Take 1 Univers -acetaminop 6-17 tablet by ity of hen (NORCO) 00:00: mouth [place] 10-325 mg 00 every 6 Medical tablet (six) Branch hours as needed for Pain (scale 7-10). HYDROcodone Yes [id number] 1{tbl} Take 1 Univers -acetaminop 6-17 tablet by ity of hen (NORCO) 00:00: mouth [place] 10-325 mg 00 every 6 Medical tablet (six) Branch hours as needed for Pain (scale 7-10). HYDROcodone Yes [id number] 1{tbl} Take 1 Univers -acetaminop 6-17 tablet by ity of hen (NORCO) 00:00: mouth [place] 10-325 mg 00 every 6 Medical tablet (six) Branch hours as needed for Pain (scale 7-10). HYDROcodone Yes [id number] 1{tbl} Take 1 Univers -acetaminop 6-17 tablet by ity of hen (NORCO) 00:00: mouth [place] 10-325 mg 00 every 6 Medical tablet (six) Branch hours as needed for Pain (scale 7-10). Yes 1{tbl} Take 1 Unive rs multivitami 9-05 tablet by ity of n ( 03:14: mouth [place] VITAMIN) 54 daily. Medical tablet Branch Yes 1{tbl} Take 1 Unive rs multivitami 9-05 tablet by ity of n ( 03:14: mouth [place] VITAMIN) 54 daily. Medical tablet Branch Yes 1{tbl} Take 1 Unive rs multivitami 9-05 tablet by ity of n ( 03:14: mouth [place] VITAMIN) 54 daily. Medical tablet Branch Yes 1{tbl} Take 1 Unive rs multivitami 9-04 tablet by ity of n ( 22:14: mouth [place] VITAMIN) 54 daily. Medical tablet Branch traMADOL Yes 50mg Take 1 Univers (ULTRAM) 50 9-04 tablet by ity of mg tablet 00:00: mouth [place] 00 every 6 Medical (six) Branch hours as needed for Pain (scale 7-10) (ALTERNATE WITH TYLENOL # 3). acetaminoph 2018-0 Yes 1{tbl} Take 1 Un martin en-codeine 9-04 tablet by ity of (TYLENOL-CO 00:00: mouth [place] DEINE #3) 00 every 4 Medical 300-30 mg (four) Branch tablet hours as needed for Pain (scale 7-10). traMADOL 2018-0 Yes 50mg Take 1 Univers (ULTRAM) 50 9-04 tablet by ity of mg tablet 00:00: mouth [place] 00 every 6 Medical (six) Branch hours as needed for Pain (scale 7-10) (ALTERNATE WITH TYLENOL # 3). acetaminoph 2018-0 Yes 1{tbl} Take 1 Un martin en-codeine 9-04 tablet by ity of (TYLENOL-CO 00:00: mouth [place] DEINE #3) 00 every 4 Medical 300-30 mg (four) Branch tablet hours as needed for Pain (scale 7-10). traMADOL 2018-0 Yes 50mg Take 1 Univers (ULTRAM) 50 9-04 tablet by ity of mg tablet 00:00: mouth [place] 00 every 6 Medical (six) Branch hours as needed for Pain (scale 7-10) (ALTERNATE WITH TYLENOL # 3). acetaminoph 2018-0 Yes 1{tbl} Take 1 Un martin en-codeine 9-04 tablet by ity of (TYLENOL-CO 00:00: mouth [place] DEINE #3) 00 every 4 Medical 300-30 mg (four) Branch tablet hours as needed for Pain (scale 7-10). traMADOL 2018-0 Yes 50mg Take 1 Univers (ULTRAM) 50 9-04 tablet by ity of mg tablet 00:00: mouth [place] 00 every 6 Medical (six) Branch hours as needed for Pain (scale 7-10) (ALTERNATE WITH TYLENOL # 3). acetaminoph 2018-0 Yes 1{tbl} Take 1 Un martin en-codeine 9-04 tablet by ity of (TYLENOL-CO 00:00: mouth [place] DEINE #3) 00 every 4 Medical 300-30 mg (four) Branch tablet hours as needed for Pain (scale 7-10). naproxen 2018-0 Yes 550mg Take 1 Univer s sodium 550 2-06 tablet by ity of mg tablet 00:00: mouth 2 00 (two) Medical times Branch daily with meals. ondansetron 2018-0 Yes 4mg Take 1 Univ ers (ZOFRAN, 2-06 tablet by ity of HYDROCHLORI 00:00: mouth [place] DE,) 4 mg 00 every 8 Medical tablet (eight) Branch hours as needed for Nausea and Vomiting (N/V). naproxen 2018-0 Yes 550mg Take 1 Univer s sodium 550 2-06 tablet by ity of mg tablet 00:00: mouth 2 00 (two) Medical times Branch daily with meals. ondansetron 2018-0 Yes 4mg Take 1 Univ ers (ZOFRAN, 2-06 tablet by ity of HYDROCHLORI 00:00: mouth [place] DE,) 4 mg 00 every 8 Medical tablet (eight) Branch hours as needed for Nausea and Vomiting (N/V). naproxen 2018-0 Yes 550mg Take 1 Univer s sodium 550 2-06 tablet by ity of mg tablet 00:00: mouth 2 (two) Medical times Branch daily with meals. ondansetron 2018-0 Yes 4mg Take 1 Univ ers (ZOFRAN, 2-06 tablet by ity of HYDROCHLORI 00:00: mouth [place] DE,) 4 mg 00 every 8 Medical tablet (eight) Branch hours as needed for Nausea and Vomiting (N/V). naproxen 2018-0 Yes 550mg Take 1 Univer s sodium 550 2-06 tablet by ity of mg tablet 00:00: mouth 2 (two) Medical times Branch daily with meals. ondansetron 2018-0 Yes 4mg Take 1 Univ ers (ZOFRAN, 2-06 tablet by ity of HYDROCHLORI 00:00: mouth [place] DE,) 4 mg 00 every 8 Medical tablet (eight) Branch hours as needed for Nausea and Vomiting (N/V). phenazopyri 2017-0 Yes 200mg Take 1 Uni vers dine 200 mg 3-16 tablet by ity of tablet 00:00: mouth 3 [place] 00 (three) Medical times Branch daily. phenazopyri 2017-0 Yes 200mg Take 1 Uni vers dine 200 mg 3-16 tablet by ity of tablet 00:00: mouth 3 [place] 00 (three) Medical times Branch daily. phenazopyri 2017-0 Yes 200mg Take 1 Uni vers dine 200 mg 3-16 tablet by ity of tablet 00:00: mouth 3 [place] 00 (three) Medical times Branch daily. phenazopyri 2017-0 Yes 200mg Take 1 Uni vers dine 200 mg 3-16 tablet by ity of tablet 00:00: mouth 3 [place] 00 (three) Medical times Branch daily. proMETHazin 2017-0 Yes 25mg Take 1 Univ ers e 25 mg 2-05 tablet by ity of tablet 00:00: mouth [place] 00 every 6 Medical (six) Branch hours as needed for Nausea and Vomiting (N/V) for up to 12 doses. acetaminoph 2017-0 Yes 1{tbl} Take 1 Un martin en-codeine 2-05 tablet by ity of 300-30 mg 00:00: mouth [place] tablet 00 every 6 Medical (six) Branch hours as needed for Pain (scale 4-6) for up to 10 doses. proMETHazin 2017-0 Yes 25mg Take 1 Univ ers e 25 mg 2-05 tablet by ity of tablet 00:00: mouth [place] 00 every 6 Medical (six) Branch hours as needed for Nausea and Vomiting (N/V) for up to 12 doses. acetaminoph 2017-0 Yes 1{tbl} Take 1 Un martin en-codeine 2-05 tablet by ity of 300-30 mg 00:00: mouth [place] tablet 00 every 6 Medical (six) Branch hours as needed for Pain (scale 4-6) for up to 10 doses. proMETHazin 2017-0 Yes 25mg Take 1 Univ ers e 25 mg 2-05 tablet by ity of tablet 00:00: mouth [place] 00 every 6 Medical (six) Branch hours as needed for Nausea and Vomiting (N/V) for up to 12 doses. acetaminoph 2017-0 Yes 1{tbl} Take 1 Un martin en-codeine 2-05 tablet by ity of 300-30 mg 00:00: mouth [place] tablet 00 every 6 Medical (six) Branch hours as needed for Pain (scale 4-6) for up to 10 doses. proMETHazin 2017-0 Yes 25mg Take 1 Univ ers e 25 mg 2-05 tablet by ity of tablet 00:00: mouth [place] 00 every 6 Medical (six) Branch hours as needed for Nausea and Vomiting (N/V) for up to 12 doses. acetaminoph Yes 1{tbl} Take 1 Un martin en-codeine 2-05 tablet by ity of 300-30 mg 00:00: mouth [place] tablet 00 every 6 Medical (six) Branch hours as needed for Pain (scale 4-6) for up to 10 doses. ACETAZOLAMI Yes Take by [facility]: [address] ACETAZOLAMI 0 Yes Take by [facility] 1-17 [facility] - 21:[facility]: [address] Nitrofurant 2015-03 Yes 100mg Take 1 Uni vers oin&Nit. 2-14 capsule by ity o f Macrocryst 00:00: mouth 2 [place] (MACROBID) 00 (two) Medical 100 mg times Branch capsule daily. ondansetron 2015-03 Yes 4mg Take 1 Univ ers (ZOFRAN, 2-14 tablet by ity of HYDROCHLORI 00:00: mouth [place] DE,) 4 mg 00 every 8 Medical tablet (eight) Branch hours as needed for Nausea and Vomiting (N/V). ketorolac 2015-03 Yes 10mg Take 1 Univer s (TORADOL) 2-14 tablet by ity o f 10 mg 00:00: mouth [place] tablet 00 every 6 Medical (six) Branch hours as needed for Alternate with [place] for pain scale 1-3. tamsulosin 2015-03 Yes .4mg Take 1 Unive rs (FLOMAX) 2-14 capsule by ity o f 0.4 mg 24 00:00: mouth [place] hr capsule 00 bedtime. Medic al Branch Nitrofurant 2015-03 Yes 100mg Take 1 Uni vers oin&Nit. 2-14 capsule by ity o f Macrocryst 00:00: mouth 2 [place] (MACROBID) 00 (two) Medical 100 mg times Branch capsule daily. ondansetron 2015-03 Yes 4mg Take 1 Univ ers (ZOFRAN, 2-14 tablet by ity of HYDROCHLORI 00:00: mouth [place] DE,) 4 mg 00 every 8 Medical tablet (eight) Branch hours as needed for Nausea and Vomiting (N/V). ketorolac 2015-03 Yes 10mg Take 1 Univer s (TORADOL) 2-14 tablet by ity o f 10 mg 00:00: mouth [place] tablet 00 every 6 Medical (six) Branch hours as needed for Alternate with [place] for pain scale 1-3. tamsulosin 2015-03 Yes .4mg Take 1 Unive rs (FLOMAX) 2-14 capsule by ity o f 0.4 mg 24 00:00: mouth at [place] hr capsule 00 bedtime. Medic al Branch Nitrofurant 2015-03 Yes 100mg Take 1 Uni vers oin&Nit. 2-14 capsule by ity o f Macrocryst 00:00: mouth 2 [place] (MACROBID) 00 (two) Medical 100 mg times Branch capsule daily. ondansetron 2015-03 Yes 4mg Take 1 Univ ers (ZOFRAN, 2-14 tablet by ity of HYDROCHLORI 00:00: mouth [place] DE,) 4 mg 00 every 8 Medical tablet (eight) Branch hours as needed for Nausea and Vomiting (N/V). ketorolac 2015-03 Yes 10mg Take 1 Univer s (TORADOL) 2-14 tablet by ity o f 10 mg 00:00: mouth [place] tablet 00 every 6 Medical (six) Branch hours as needed for Alternate with [place] for pain scale 1-3. tamsulosin 2015-03 Yes .4mg Take 1 Unive rs (FLOMAX) 2-14 capsule by ity o f 0.4 mg 24 00:00: mouth at [place] hr capsule 00 bedtime. Medic al Branch Nitrofurant 2015-03 Yes 100mg Take 1 Uni vers oin&Nit. 2-14 capsule by ity o f Macrocryst 00:00: mouth 2 [place] (MACROBID) 00 (two) Medical 100 mg times Branch capsule daily. ondansetron 2015-03 Yes 4mg Take 1 Univ ers (ZOFRAN, 2-14 tablet by ity of HYDROCHLORI 00:00: mouth [place] DE,) 4 mg 00 every 8 Medical tablet (eight) Branch hours as needed for Nausea and Vomiting (N/V). ketorolac 2015-03 Yes 10mg Take 1 Univer s (TORADOL) 2-14 tablet by ity o f 10 mg 00:00: mouth [place] tablet 00 every 6 Medical (six) Branch hours as needed for Alternate with [place] for pain scale 1-3. tamsulosin 2015-03 Yes .4mg Take 1 Unive rs (FLOMAX) 2-14 capsule by ity o f 0.4 mg 24 00:00: mouth at [place] hr capsule 00 bedtime. Medic al Branch 2015-03 Yes 1{tbl} Take 1 Unive rs vitamin 2-07 tablet by ity of w/FA 00:00: mouth [place] (PRENATABS 00 daily. Medical RX) tablet Branch docusate 2015-03 Yes 240mg Take 1 Univer s calcium 2-07 capsule by ity of (SURFAK) 00:00: mouth once [place] as 240 mg 00 daily as Medical capsule needed for Branch Constipati on. ferrous 2015-03 Yes 325mg Take 1 Univers sulfate 325 2-07 tablet by ity of mg (65 mg 00:00: mouth 2 [place] iron) 00 (two) Medical tablet times Branch daily. ibuprofen 2015-03 Yes 600mg Take 1 Unive rs (MOTRIN) 2-07 tablet by ity of 600 mg 00:00: mouth [place] tablet 00 every 6 Medical (six) Branch hours as needed for Pain (scale 4-6). Take with food or milk. acetaminoph 2015-03 Yes 1{tbl} Take 1-2 Univers en-codeine 2-07 tablets by ity of (TYLENOL 00:00: mouth [place] #3) 300-30 00 every 6 Medica l mg tablet (six) Branch hours as needed for Pain (scale 1-3) or Pain (scale 4-6). For patients < 12 years recommend do not exceed 5 doses or 2.6 gm in 24 hours totals for all acetaminop hen containing products. For adults with normal hepatic function recommend do not exceed 3 grams in 24 hours for all acetaminop hen containing products. 2015-03 Yes 1{tbl} Take 1 Unive rs vitamin 2-07 tablet by ity of w/FA 00:00: mouth [place] (PRENATABS 00 daily. Medical RX) tablet Branch docusate 2015-03 Yes 240mg Take 1 Univer s calcium 2-07 capsule by ity of (SURFAK) 00:00: mouth once [place] as 240 mg 00 daily as Medical capsule needed for Branch Constipati on. ferrous 2015-03 Yes 325mg Take 1 Univers sulfate 325 2-07 tablet by ity of mg (65 mg 00:00: mouth 2 [place] iron) 00 (two) Medical tablet times Branch daily. ibuprofen 2015-03 Yes 600mg Take 1 Unive rs (MOTRIN) 2-07 tablet by ity of 600 mg 00:00: mouth [place] tablet 00 every 6 Medical (six) Branch hours as needed for Pain (scale 4-6). Take with food or milk. acetaminoph 2015-03 Yes 1{tbl} Take 1-2 Univers en-codeine 2-07 tablets by ity of (TYLENOL 00:00: mouth [place] #3) 300-30 00 every 6 Medica l mg tablet (six) Branch hours as needed for Pain (scale 1-3) or Pain (scale 4-6). For patients < 12 years recommend do not exceed 5 doses or 2.6 gm in 24 hours totals for all acetaminop hen containing products. For adults with normal hepatic function recommend do not exceed 3 grams in 24 hours for all acetaminop hen containing products. 2015-03 Yes 1{tbl} Take 1 Unive rs vitamin 2-07 tablet by ity of w/FA 00:00: mouth [place] (PRENATABS 00 daily. Medical RX) tablet Branch docusate 2015-03 Yes 240mg Take 1 Univer s calcium 2-07 capsule by ity of (SURFAK) 00:00: mouth once [place] as 240 mg 00 daily as Medical capsule needed for Branch Constipati on. ferrous 2015-03 Yes 325mg Take 1 Univers sulfate 325 2-07 tablet by ity of mg (65 mg 00:00: mouth 2 [place] iron) 00 (two) Medical tablet times Branch daily. ibuprofen 2015-03 Yes 600mg Take 1 Unive rs (MOTRIN) 2-07 tablet by ity of 600 mg 00:00: mouth [place] tablet 00 every 6 Medical (six) Branch hours as needed for Pain (scale 4-6). Take with food or milk. acetaminoph 2015-03 Yes 1{tbl} Take 1-2 Univers en-codeine 2-07 tablets by ity of (TYLENOL 00:00: mouth [place] #3) 300-30 00 every 6 Medica l mg tablet (six) Branch hours as needed for Pain (scale 1-3) or Pain (scale 4-6). For patients < 12 years recommend do not exceed 5 doses or 2.6 gm in 24 hours totals for all acetaminop hen containing products. For adults with normal hepatic function recommend do not exceed 3 grams in 24 hours for all acetaminop hen containing products. 2015-03 Yes 1{tbl} Take 1 Unive rs vitamin 2-07 tablet by ity of w/FA 00:00: mouth [place] (PRENATABS 00 daily. Medical RX) tablet Branch docusate 2015-03 Yes 240mg Take 1 Univer s calcium 2-07 capsule by ity of (SURFAK) 00:00: mouth once [place] as 240 mg 00 daily as Medical capsule needed for Branch Constipati on. ferrous 2015-03 Yes 325mg Take 1 Univers sulfate 325 2-07 tablet by ity of mg (65 mg 00:00: mouth 2 [place] iron) 00 (two) Medical tablet times Branch daily. ibuprofen 2015-03 Yes 600mg Take 1 Unive rs (MOTRIN) 2-07 tablet by ity of 600 mg 00:00: mouth [place] tablet 00 every 6 Medical (six) Branch hours as needed for Pain (scale 4-6). Take with food or milk. acetaminoph 2015-03 Yes 1{tbl} Take 1-2 Univers en-codeine 2-07 tablets by ity of (TYLENOL 00:00: mouth [place] #3) 300-30 00 every 6 Medica l mg tablet (six) Branch hours as needed for Pain (scale 1-3) or Pain (scale 4-6). For patients < 12 years recommend do not exceed 5 doses or 2.6 gm in 24 hours totals for all acetaminop hen containing products. For adults with normal hepatic function recommend do not exceed 3 grams in 24 hours for all acetaminop hen containing products. butalbital- 2015-03 Yes 2{tbl} Take 2 Un martin acetaminoph 2-02 tablets by it y of en-caff 00:00: mouth [place] (ESGIC) 00 every 6 Medical 50-325-40 (six) Branch mg tablet hours as needed for Pain (scale 1-3) or Pain (scale 4-6). proCHLORper 2015-03 Yes 10mg Take 1 Univ ers azine 2-02 tablet by ity of (COMPAZINE) 00:00: mouth [place] 10 mg 00 every 6 Medical tablet (six) Branch hours as needed (headache) . butalbital- 1 Yes 2{tbl} Take 2 Un martin acetaminoph 2-02 tablets by it y of en-caff 00:00: mouth [place] (ESGIC) 00 every 6 Medical 50-325-40 (six) Branch mg tablet hours as needed for Pain (scale 1-3) or Pain (scale 4-6). Anika 2015-03 Yes 10mg Take 1 Univ ers azine 2-02 tablet by ity of (COMPAZINE) 00:00: mouth [place] 10 mg 00 every 6 Medical tablet (six) Branch hours as needed (headache) . butalbital2015-03 Yes 2{tbl} Take 2 Un martin acetaminoph 2-02 tablets by it y of en-caff 00:00: mouth [place] (ESGIC) 00 every 6 Medical 50-325-40 (six) Branch mg tablet hours as needed for Pain (scale 1-3) or Pain (scale 4-6). Anika 2015-03 Yes 10mg Take 1 Univ ers azine 2-02 tablet by ity of (COMPAZINE) 00:00: mouth [place] 10 mg 00 every 6 Medical tablet (six) Branch hours as needed (headache) . butalbital2015-03 Yes 2{tbl} Take 2 Un martin acetaminoph 2-02 tablets by it y of en-caff 00:00: mouth [place] (ESGIC) 00 every 6 Medical 50-325-40 (six) Branch mg tablet hours as needed for Pain (scale 1-3) or Pain (scale 4-6). Anika 2015-03 Yes 10mg Take 1 Univ ers azine 2-02 tablet by ity of (COMPAZINE) 00:00: mouth [place] 10 mg 00 every 6 Medical tablet (six) Branch hours as needed (headache) . No known No [facility] Vital Signs Vital Name Observation Time Observation Value Comments Source Heart rate 2021-01-19 03:10:00 120 /min Universi ty of [facility] Systolic blood 2021-01-19 03:00:00 134 mm[Hg] Univer sity of [facility] Diastolic blood 2021-01-19 03:00:00 90 mm[facility]Hg] [facility] Respiratory rate 2021-01-19 03:00:00 20 /min Univ ersity of [place] [facility] Oxygen saturation in 2021-01-19 03:00:00 97 /min University of Arterial blood by [place] [facility] nirm[facility] Pulse oximetry Branch Body temperature 2021-01-19 01:23:00 37.11 Martina Univ ersity of [place] [facility] Body height 2021-01-19 01:23:00 157.5 cm [facility] [place] [facility] Body weight 2021-01-19 01:23:00 117.935 kg [facility] [place] [facility] BMI 2021-01-19 01:23:00 47.55 kg/m2 [facility] [place] [facility] Systolic blood 2020-08-29 15:23:00 132 mm[Hg] Univer sity of pressure [place] [facility] Diastolic blood 2020-08-29 15:23:00 82 mm[Hg] Unive rsity of pressure [place] [facility] Heart rate 2020-08-29 15:23:00 113 /min Universi ty [facility] [place] [facility] Respiratory rate 2020-08-29 15:23:00 14 /min Univ ersity of [place] [facility] Oxygen saturation in 2020-08-29 15:23:00 98 /min University of Arterial blood by [place] [employer] nirmala Pulse oximetry Branch Body weight 2020-08-28 19:17:00 122 kg [facility] ty [facility] [place] [facility] BMI 2020-08-28 19:17:00 49.19 kg/m2 [facility] [place] [facility] Body temperature 2020-08-28 18:46:00 36.72 Martina [facility] [place] [facility] Systolic blood 2020-08-29 15:23:00 132 mm[Hg] Univer sity of pressure [place] [facility] Diastolic blood 2020-08-29 15:23:00 82 mm[Hg] Unive rsity of pressure [place] [facility] Heart rate 2020-08-29 15:23:00 113 /min Universi ty [facility] [place] [facility] Respiratory rate 2020-08-29 15:23:00 14 /min Univ ersity of [place] [facility] Oxygen saturation in 2020-08-29 15:23:00 98 /min University of Arterial blood by [place] Med[facility] nirmala Pulse oximetry Branch Body weight 2020-08-28 19:17:00 122 kg [facility]i [facility] [place] [facility] BMI 2020-08-28 19:17:00 49.19 kg/m2 [facility] [place] [facility] Body temperature 2020-08-28 18:46:00 36.72 Martina [facility] [place] [facility] Systolic blood 2020-04-28 03:05:00 119 mm[Hg] Univer sity of pressure [place] [facility] Diastolic blood 2020-04-28 03:05:00 80 mm[Hg] Unive rsity of pressure [place] [facility] Heart rate 2020-04-28 03:05:00 117 /min [facility]i ty [facility] [place] [facility] Respiratory rate 2020-04-28 03:05:00 20 /min Univ ers[facility] [place] [facility] Oxygen saturation in 2020-04-28 03:05:00 99 /min University of Arterial blood by [place] [employer] nirmala Pulse oximetry Branch Body temperature 2020-04-28 02:32:00 37.22 Martina [facility] [place] [facility] Body height 2020-04-28 02:32:00 157.5 cm [facility] [place] [facility] Body weight 2020-04-28 02:32:00 122.471 kg [facility] [place] [facility] BMI 2020-04-28 02:32:00 49.38 kg/m2 [facility] [place] [facility] Systolic blood 2020-04-28 03:05:00 119 mm[Hg] Univer sity of pressure [place] [facility] Diastolic blood 2020-04-28 03:05:00 80 mm[Hg] Unive rsity of pressure [place] [facility] Heart rate 2020-04-28 03:05:00 117 /min [facility] [place] [facility] Respiratory rate 2020-04-28 03:05:00 20 /min Univ ersity [facility] [place] [facility] Oxygen saturation in 2020-04-28 03:05:00 99 /min University of Arterial blood by [place] Med[facility] nirmala Pulse oximetry Branch Body temperature 2020-04-28 02:32:00 37.22 Martina [facility] [place] [facility] Body height 2020-04-28 02:32:00 157.5 cm [facility] [place] [facility] Body weight 2020-04-28 02:32:00 122.471 kg [facility] [place] [facility] BMI 2020-04-28 02:32:00 49.38 kg/m2 [facility] [place] [facility] Body height 2020-10-22 04:27:00 157.5 cm [facility] Body weight 2020-10-22 04:27:00 127.007 kg 280 [facility] BMI 2020-10-22 04:27:00 51.21 kg/m2 [facility] Systolic blood 2020-10-22 04:24:53 155 mm[Hg] [facility] pressure Diastolic blood 2020-10-22 04:24:53 78 mm[Hg] [facility] Heart rate 2020-10-22 04:24:53 128 /min [facility] Body temperature 2020-10-22 04:24:53 36 Martina [facility] Respiratory rate 2020-10-22 04:24:53 20 /min [facility] Oxygen saturation in 2020-10-22 04:24:53 98 /min [facility] Arterial blood by Pulse oximetry Respiratory 2020-05-07 07:49:50 No respiratory distress /min 02 Sat by Pulse 2020-05-07 07:49:50 100 /min Oximetry Body Mass Index 2020-05-07 07:49:50 49.4 Height 2020-05-07 07:49:50 157.48\\S\\62 Pulse Rate 2020-05-07 07:49:50 87 /min Respiratory Rate 2020-05-07 07:49:50 18 /min Temperature 2020-05-07 07:49:50 37\\S\\98.6 Weight 2020-05-07 07:49:50 600053.939\\S\\4320 Respiratory 2020-05-05 23:26:04 No respiratory distress /min 02 Sat by Pulse 2020-05-05 23:26:04 100 /min Oximetry Body Mass Index 2020-05-05 23:26:04 49.4 Height 2020-05-05 23:26:04 157.48\\S\\62 Pulse Rate 2020-05-05 23:26:04 87 /min Respiratory Rate 2020-05-05 23:26:04 18 /min Temperature 2020-05-05 23:26:04 37\\S\\98.6 Weight 2020-05-05 23:26:04 459436.939\\S\\4320 Respiratory 2020-05-05 16:38:31 No respiratory distress /min 02 Sat by Pulse 2020-05-05 16:38:31 100 /min Oximetry Body Mass Index 2020-05-05 16:38:31 49.4 Height 2020-05-05 16:38:31 157.48\\S\\62 Pulse Rate 2020-05-05 16:38:31 152 /min Respiratory Rate 2020-05-05 16:38:31 20 /min Temperature 2020-05-05 16:38:31 37.2\\S\\99.0 Weight 2020-05-05 16:38:31 904592.939\\S\\4320 Respiratory 2020-05-05 14:24:00 No respiratory distress /min 02 Sat by Pulse 2020-05-05 14:24:00 100 /min Oximetry Body Mass Index 2020-05-05 14:24:00 49.4 Height 2020-05-05 14:24:00 157.48\\S\\62 Pulse Rate 2020-05-05 14:24:00 152 /min Respiratory Rate 2020-05-05 14:24:00 20 /min Temperature 2020-05-05 14:24:00 37.2\\S\\99.0 Weight 2020-05-05 14:24:00 417149.939\\S\\4320 02 Sat by Pulse 2020-05-05 13:30:25 100 /min Oximetry Body Mass Index 2020-05-05 13:30:25 49.4 Height 2020-05-05 13:30:25 157.48\\S\\62 Pulse Rate 2020-05-05 13:30:25 152 /min Respiratory Rate 2020-05-05 13:30:25 20 /min Temperature 2020-05-05 13:30:25 37.2\\S\\99.0 Weight 2020-05-05 13:30:25 950838.939\\S\\4320 02 Sat by Pulse 2020-05-05 13:17:41 100 /min Oximetry Body Mass Index 2020-05-05 13:17:41 49.4 Height 2020-05-05 13:17:41 157.48\\S\\62 Pulse Rate 2020-05-05 13:17:41 152 /min Respiratory Rate 2020-05-05 13:17:41 20 /min Temperature 2020-05-05 13:17:41 37.2\\S\\99.0 Weight 2020-05-05 13:17:41 421161.939\\S\\4320 02 Sat by Pulse 2020-05-05 13:15:39 100 /min Oximetry Body Mass Index 2020-05-05 13:15:39 49.4 Height 2020-05-05 13:15:39 157.48\\S\\62 Pulse Rate 2020-05-05 13:15:39 152 /min Respiratory Rate 2020-05-05 13:15:39 20 /min Temperature 2020-05-05 13:15:39 37.2\\S\\99.0 Weight 2020-05-05 13:15:39 774347.939\\S\\4320 WEIGHT 2020-05-05 13:11:00 122.566517 kg HEIGHT 2020-05-05 13:11:00 157.48 cm Procedures Procedure Date / Time Performing Clinician Source Performed CT ABDOMEN PELVIS W 2021-01-19 02:26:01 Wan Pacheco [facility] CONTRAST [facility] POCT TEST 2021-01-19 01:41:00 [facility] COMP. METABOLIC PANEL 2021-01-19 01:40:00 Pacheco, [facility] ([id number]) [facility] CBC WITH DIFF 2021-01-19 01:40:00 [facility] URINALYSIS 2021-01-19 01:40:00 [facility] CONSENT/REFUSAL FOR 2021-01-19 01:18:32 Doctor Unassigned, No Un [facility] DIAGNOSIS AND TREATMENT Name Medical Branch HC COMPLETE BLD COUNT 2020-10-22 05:09:00 David Phelan [facility] W/AUTO DIFF URINALYSIS 2020-10-22 05:09:00 David Phelan spital COMPREHENSIVE METABOLIC 2020-10-22 05:09:00 David Phelan [facility] PANEL LACTIC ACID, I-STAT 2020-10-22 05:09[facility]INE 2020-10-22 05:09:00 [facility] SCREEN ESTIMATED GFR 2020-10-22 05:09:00 David Phelan [place] [facility] LUMBAR SPINE W WO 2020-08-29 04:41:29 Leah Doty [facility] CONTRAST [facility] POCT TEST 2020-08-29 04:39:00 Debbi Page [facility] CBC WITH DIFF 2020-08-29 03:06:00 Camilo [facility] LACTIC ACID WHOLE BLOOD 2020-08-29 03:06[facility] 2020-08-29 02:50:00 [facility] ([id number]) [facility] URINALYSIS 2020-08-29 02:50:00 Camilo [facility] COVID-19 (ID NOW RAPID 2020-08-28 23:34:00 Leah Doty [facility] TESTING) [facility] CONSENT/REFUSAL FOR 2020-08-28 18:48:13 [facility] Name [facility] ADC / LCC - DRUG SCREEN 2020-04-28 03:58:00 Mary Bran [facility] TRIAGE [facility] BASIC METABOLIC PANEL 2020-04-28 03:03:00 Mary Bran [facility] (NA, K, CL, CO2, Medical Branch GLUCOSE, BUN, CREATININE, CA) CBC WITH DIFF 2020-04-28 03:03:00 Mary Bran [facility] URINALYSIS 2020-04-28 02:41:00 Mary Bran [facility] POCT TEST 2020-04-28 02:40:00 Mary Bran [facility] NOTICE OF PRIVACY 2020-04-28 02:22:34 Doctor Unassigned, No Univ [facility] PRACTICES Name [facility] CONSENT/REFUSAL FOR 2020-04-28 02:22:21 Doctor Unassigned, No [facility] DIAG[facility] TREATMENT Name Medical Branch Plan of Care Planned Activity Planned Date Details Comments Source Future Scheduled Test INFLUENZA VACCINE M [facility] [code = INFLUENZA VACCINE] Future Scheduled Test COVID-19 VACCINE (1) [facility] [code = COVID-19 VACCINE (1)] Future Scheduled Test Hepatitis C screening [facility] (procedure) [code = 832488384] Future Scheduled Test [facility] malignant neoplasm of cervix (procedure) [code = 360497665] Encounters Start End Encounter Admission Attending Care Care Encounter Source Date/Time Date/Time Type Type Clinicians Facility Department ID 2020-04-24 Inpatient HCAKW ZEE [id number] [facility] 23:08:00 [id number] [facility] 2020-01-18 Inpatient HCAPM ZEE [id number] [facility] 19:15:00 [id number] [facility] 2020-01-15 Inpatient HCAKW ZEE [id number] [facility] 14:21:00 [id number] [facility] 2020-01-14 Inpatient HCAKW ZEE [id number] [facility] 22:47:00 [id number] [facility] 2020-01-13 Inpatient HCAKW ZEE [id number] [facility] 17:51:00 [id number] [facility] 2021-01-18 2021-01-18 Emergency X SINGER [facility] ERT [id number] Univers 20:26:00 22:38:00 WAN paz [facility] 2021-01-18 2021-01-18 Emergency Singer [facility] [id number] Univers 20:26:00 22:38:00 Wan MENDOZA 350.1.13.10 i [facility] 4.2.7.2.686 [facility] [id number] [place] [address] Branch 2021-01-17 2021-01-17 Emergency ER Dickson STGONZALEZG STLSJG [id number] 17:05:00 17:05:00 Dennis -[id number] [facility] [facility] 2021-01-08 2021-01-08 Emergency ER BERNADETTE KayX STLSJX [id number] STLSJX 12:37:00 12:37:00 Oli -[id number] 2020-11-25 2020-11-25 Emergency SEBASTIAN, [facility]4 [id number] 40 [place] 00:00:00 00:00:00 [address] 2020-10-22 2020-10-22 Travel 1.2.840.1 [id number] [id number] Methodi 00:00:00 00:00:[address] 3.430.2.7 0.2.7.3.698 Ho spita .3.887844 084.8 l .8 2020-10-21 2020-10-22 Emergency NUSZEN, [facility]4 [id number] [place] 00:00:00 00:00:00 DAVID Loera [facility] 2020-08-28 2020-08-29 Emergency Aufderheyou, Leah Glassa TRAUMA 1.2.840.114 [id number] 13:50:00 10:43:00 [facility] 350.1.13.10 Darron Jules 4.2.7.2.686 [id number] 014 2020-08-28 2020-08-29 Emergency Aufderhilary, Leah Glassa TRAUMA 1.2.840.114 [id number] Univers 13:50:00 10:43:00 [facility] 350.1.13.10 ity of Darron Jules 4.2.7.[address] [place] [id number] 2020-08-28 2020-08-28 Emergency X [facility] ERT [id number] Univers 13:42:00 13:42:00 ity of [facility] 2020-04-27 2020-04-27 Emergency Bran, [facility] 1.2.840.114 [id number] 20:41:00 23:12:00 Mary Mendoza 350.1.13.10 [place] 4.2.7.2.686 [facility] [id number] 2020-04-27 2020-04-27 Emergency Bran, [facility] 1.2.840.114 [id number] Univers 20:41:00 23:12:00 Mary Mendoza 350.1.13.10 i ty [facility] 4.2.7.2.686 [facility] [id number] [facility] 084 Branch 2020-04-27 2020-04-27 Emergency X [facility] ERT [id number] Univers 20:23:00 20:23:00 ity of [facility] 2020-04-27 2020-04-27 Orders Doctor COLE 1.2.840.114 [id number] 00:00:00 00:00:00 Only Unassigned, KEVYN 350.1.13.10 [place] [facility] 4.2.7.2.686 [id number] 2020-04-27 2020-04-27 Orders Doctor COLE 1.2.840.114 [id number] Univers 00:00:00 00:00:00 Only Unassigned, KEVYN 350.1.13.10 ity of [place] [facility] 4.2.7.2.686 [facility] [id number] [facility] 009 Branch 2020-01-18 2020-01-18 Outpatient Uriah, LUCÍA LABO Q833 - [facility] 22:41:00 22:41:00 Anita [address] [facility] 2020-01-15 2020-01-17 Inpatient Bradly [facility]arraga [facility] [id number] [facility] 17:01:00 12:13:00 [id number] [facility] Results Test Description Test Time Test Comments Results Result Comments Source COMP. METABOLIC PANEL (73976) 2021-01-19 01:59:14 Test Item Value Reference Range Interpretation Comme nts NA (test code = 7567380911) 140 mmol/L 135-145 K (test code = 0737184542) 4.4 mmol/L 3.5-5.0 CL (test code = 4108598727) 106 mmol/L 98-108 CO2 TOTAL (test code = 23 mmol/L 23-31 3757958834) AGAP (test code = 2427442024) 2-16 BUN (test code = 1894242688) 9 mg/dL 7-23 GLUCOSE (test code = 4391642406) 94 mg/dL 70-110 CREATININE (test code = 0.62 mg/dL 0.50-1.04 5448196108) TOTAL BILI (test code = 0.3 mg/dL 0.1-1.3 3586956571) CALCIUM (test code = 5538650396) 9.8 mg/dL 8.6-10.6 T PROTEIN (test code = 7.8 g/dL 6.3-8.2 8704618240) ALBUMIN (test code = 5041799013) 4.6 g/dL 3.5-5.0 ALK PHOS (test code = 0119382862) 97 U/L 34-122 ALTv (test code = 1742-6) 19 U/L 5-35 AST(SGOT) (test code = 26 U/L 13-40 8443129602) eGFR (test code = 8676453901) mL/min/1.73m2 AURORA (test code = AURORA) Association of Glomerular Filtration Rate (GFR) and Staging of Kidney Disease* + +--------- + ----+| GFR (mL/min/1.73 m2) ?| With Kidney Damage ?| ?Without Kidney Damage+ +--- + +| ?>90 ?| ?Stage one ?| ? Normal ?+ +-------- + -----+| ?60-89 ?| ?Stage two ?| ? Decreased GFR ? + +--------- + ----+| ?30-59 ?| ?Stage three ?| ? Stage three ? + +--------- + ----+| ?15-29 ?| ?Stage four ? | ? Stage four ?+ +-------- + -----+| ?<15 (or dialysis) ? ?| ?Stage five ? | ? Stage five ?+ +-------- + -----+ *Each stage assumes the associated GFR level has been in effect for at least three months. ?Stages 1 to 5, with or without kidney disease, indicate chronic kidney disease. Notes: Determination of stages one and two (with eGFR >59mL/min/1.73 m2) requires estimation of kidney damage for at least three months as defined by structural or functional abnormalities of the kidney, manifested by either:Pathological abnormalities or Markers of kidney damage (including abnormalities in the composition of the blood or urine or abnormalities in imaging tests). [facility] WITH [id number] 01:47:12 Test Item Value Reference Range Interpretation Comments WBC (test code = See_Comment [Automated 6690-2) message] The sy stem which generated this result transmitted reference range : 4.30 - 11.10 10*3/?L. The reference range was not used to interpret this result as normal/abnormal . RBC (test code = See_Comment [Automated 789-8) message] The sy stem which generated this result transmitted reference range : 3.93 - 5.25 10*6/?L. The reference range was not used to interpret this result as normal/abnormal . HGB (test code = 10.6 g/dL 11.6-15.0 L 718-7) HCT (test code = 34.3 % 35.7-45.2 L 4544-3) MCV (test code = 81.9 fL 80.6-95.5 787-2) MCH (test code = 25.3 pg 25.9-32.8 L 785-6) MCHC (test code = 30.9 g/dL 31.6-35.1 L 786-4) RDW-SD (test code = 51.5 fL 39.0-49.9 H 50352-5) RDW-CV (test code = 17.4 % 12.0-15.5 H 788-0) PLT (test code = See_Comment H [Automated 777-3) message] The sy stem which generated this result transmitted reference range : 166 - 358 10*3/ ?L. The reference r edson was not used to interpret this result as normal/abnormal . MPV (test code = 9.3 fL 9.5-12.9 L 49472-7) NRBC/100 WBC (test See_Comment [Automat ed code = 1941466611) message] The system which generated this result transmitted reference range : 0.0 - 10.0 /100 WBCs. The refer ence range was not u sed to interpret th is result as normal/abnormal . NRBC x10^3 (test code <0.01 See_Comment [Auto mated = 5471561369) message] The s ystem which generated this result transmitted reference range : 10*3/?L. The reference range was not used to interpret this result as normal/abnormal . GRAN MAT (NEUT) % 59.5 % (test code = 770-8) IMM GRAN % (test code 0.30 % = 6479213334) LYMPH % (test code = 30.7 % 736-9) MONO % (test code = 5.7 % 5905-5) EOS % (test code = 3.3 % 713-8) BASO % (test code = 0.5 % 706-2) GRAN MAT x10^3(ANC) 5.88 10*3/uL 1.88-7.09 (test code = 5365660058) IMM GRAN x10^3 (test 0.03 10*3/uL 0.00-0.06 code = 0476999427) LYMPH x10^3 (test code 3.03 10*3/uL 1.32-3.29 = 731-0) MONO x10^3 (test code 0.56 10*3/uL 0.33-0.92 = 742-7) EOS x10^3 (test code = 0.33 10*3/uL 0.03-0.39 711-2) BASO x10^3 (test code 0.05 10*3/uL 0.01-0.07 = 704-7) Lab Interpretation Abnormal (test code = 53002-4) [id number] Test Item Value Reference Range Interpretation Comments POCT PREG (test code = 1605) neg On board controls acceptable with yes C Line (test code = 3574) POCT PREG LOT # (test code = 3575) [id number] POCT PREG TEST DATE (test 03/15/2022 code = 3576) Lab Interpretation (test code = Normal 08359-4) [facility]:14[facility]00 Test Item Value Reference Range Interpretation Comments Chemistry (test 139 mmol/L 136-145 N code = NA-T) Chemistry (test 3.7 mmol/L 3.5-5.1 N code = K-T) Chemistry (test 107 mmol/L 98-107 N code = CL) Chemistry (test 23 mmol/L 22-29 N code = CO2) Chemistry (test 13 mmol/L 10-20 N code = ANGP) Chemistry (test 9 mg/dL 7.0-18.7 N code = BUN) Chemistry (test 0.75 mg/dL 0.6-1.1 N code = CREATT) Chemistry (test Greater than 90 Referenc e Range for code = EGFRMDRD) Estimated G FR: Gre ater than 90 mL/min/ 1.73 m2NOTE:The MDRD equation has no t been validated for use with theeld erly (over 70 years of age), women, patients with serious comorbi d condition or pe rsons with extremes o fbody size, muscle ma ss, or nutritional status. Chemistry (test 87 mg/dL 70-105 N code = GLU-T) Chemistry (test 9.4 mg/dL 7.8-10.44 N code = CA) Chemistry - [id number] 18:04:00 Test Item Value Reference Range Interpretation Comments Chemistry - Specials Negative NEGATIVE Method of sensitivity- (test code = BHCGST) Indete rminant: results should be repeated after 48-72 hrs Positive: results may be detected as ear ly as 1 day after the first missed menses. [id number] 17:55:00 Test Item Value Reference Range Interpretation Comments Hematology (test code = WBCT) 10.1 thou/uL 4.8-10.8 N Hematology (test code = RBCT) 4.24 mill/uL 4.20-5.40 N Hematology (test code = HGBT) 10.7 g/dL 12.0-16.0 L Hematology (test code = HCTT) 35.4 % 36.0-47.0 L Hematology (test code = MCV) 83.4 fL 78.0-98.0 N Hematology (test code = MCH) 25.3 pg 27.0-31.0 L Hematology (test code = MCHC) 30.3 g/dL 32.0-36.0 L Hematology (test code = RDW) 16.8 % 11.5-14.5 H Hematology (test code = PLTT) 477 thou/uL 130-400 H Hematology (test code = MPV) 6.8 fL 7.4-10.4 L Hematology (test code = %NEUT) 66.0 % 42.0-75.0 N Hematology (test code = %LYMPH) 26.5 % 21.0-51.0 N Hematology (test code = %MONO) 5.0 % 0.0-10.0 N Hematology (test code = %EOS) 2.0 % 0.0-10.0 N Hematology (test code = %BASO) 0.5 % 0.0-1.0 N Hematology (test code = NEUT#) 6.7 thou/uL 1.40-6.50 H Hematology (test code = LYMPH#) 2.7 thou/uL 1.20-3.40 N Hematology (test code = MONO#) 0.5 thou/uL 0.11-0.59 N Hematology (test code = EOS#) 0.2 thou/uL 0.0-0.7 N Hematology (test code = BASO#) 0.1 thou/uL 0.0-0.2 N [id number] 17:55:00 Test Item Value Reference Range Interpretation Comments Urinalysis (test code = UACLR) Yellow Yellow Urinalysis (test code = UACLY) Clear Clear Urinalysis (test code = SPGR) 1.025 1.005-1.030 N Urinalysis (test code = OG) 7.0 5.0-9.0 N Urinalysis (test code = UALEU) Negative Negative Urinalysis (test code = UANIT) Negative Negative Urinalysis (test code = Negative mg/dL Neg-Trace PROUADIP) Urinalysis (test code = GLUCU) Negative mg/dL Negative Urinalysis (test code = KETU) Trace mg/dL Negative A Urinalysis (test code = 0.2 mg/dL Less than 2 UAUROB) Urinalysis (test code = UABIL) Negative Negative Urinalysis (test code = UABLD) Negative Negative Urine Source: Urine VoidedMR LUMBAR SPINE W WO [id number] 13:40:15 Prior right L5-S1 laminectomy and apparent microdiscectomy, as detailedabove. No significant canal or foraminal stenosis. Peripherally enhancing fluid collection at the laminectomy approachspanning the right paraspinal soft tissues (dorsal to the thecal sac) andsubcutaneous fat, possibly a seroma versus abscess. No abnormal intraspinal fluid collection or hematoma. Several right-sided nerve roots ofthe cauda equina demonstrateenhancement, likely postoperative. RL: 4700 ORDERING PHYSICIAN:LEAH DOTY HISTORY:Low back pain, infection suspected TECHNIQUE: Lumbar spine MRI pre and post IV contrast COMPARISON: None FINDINGS:Lumbar vertebral bodies are normal in height. There is no subluxation. Theconus terminates at L1. The cauda equina is within normal limits. The patient is status post right laminectomy at L5-S1. There is a fluidcollection at the laminectomy site, within the paraspinal soft tissues tothe right of midline. Th is fluid collection extends into the subcutaneousfat along the surgical approach. The collection measures 11.1 x 7.6 x 6.8cm (AP by craniocaudal by transverse). There is mild rim enhancement. Thismay represent a postoperative collection/seroma versus abscess. There is enhancement of several right-sided roots of the cauda equina.No intraspinal fluid collection or hematoma is identified. At T12-L1, L1-L2, L2-L3, L3-L4, L4-L5, there is no significant degenerativechange, canal or foraminal stenosis At L5-S1, there is mild disc desiccation, disc space narrowing. There isapparent partial resection of a right paracentral/subarticular focal discprotrusion. A central/midline nonenhancing component is present, measuring2 mm AP and 4 mm transverse consistent with residual disc material. Nosignificant mass effect upon the thecal sac is identified. There is a 10 x3 mm (transverse by AP) region of soft tissue enhancement in the rightsubarticular zone, likely in the area of previous disc protrusionconsistent with postoperative granulation tissue. There is no mass effectupon the thecal sac. Spinal canal is patent. No significant neuralforaminal stenosis is identified. [facility], Radiant Results Inft User - 08/29/2020 8:41 AM CDT ORDERING PHYSICIAN:ISHAN DOTYHISTORY:Low back pain, infection suspected TECHNIQUE: Lumbar spine MRI pre and postIV contrastCOMPARISON: NoneFINDINGS:Lumbar vertebral bodies are normal in height. There is no subluxation. Theconus terminates at L1. The cauda equina is within normal limits.The patient is status postright laminectomy at L5-S1. There is a fluidcollection at the laminectomy site, within the paraspinal soft tissues tothe right of midline. This fluid collection extends into the subcutaneousfat along the surgical approach. The collection measures 11.1 x 7.6 x 6.8cm (AP by craniocaudal by transverse). There is mild rim enhancement. Thismay represent a postoperative collection/seroma versus abscess.There is enhancement of several right-sided roots of the cauda equina.No intraspinal fluid collection orhematoma is identified.At T12-L1, L1-L2, L2-L3, L3-L4, L4-L5, there is no significant degenerativechange, canal or foraminal stenosisAt L5-S1, there is mild disc desiccation, disc space narrowing. There isapparent partial resection of a right paracentral/subarticular focal discprotrusion. A central/midline nonenhancing component is present, measuring2 mm AP and 4 mm transverse consistent with residual disc material. Nosignificant mass effect upon the thecal sac is identified. There is a 10 x3 mm (transverse by AP) region of soft tissue enhancement in the rightsubarticular zone, likely in the area of previous disc protrusionconsistent with postoperative granulation tissue. There is no mass effectupon the thecal sac. Spinal canal is patent. No significant neuralforaminal stenosis is identified.IMPRESSIONPrior right L5-S1 laminectomy and apparent microdiscectomy, as detailedabove.No significant canal or foraminal stenosis.Peripherally enhancing fluid collection at the laminectomy approachspanning the right paraspinal soft tissues (dorsal to the thecal sac) andsubcutaneous fat, possibly a seroma versus abscess.No abnormal intraspinal fluid collection or hematoma.Several right-sided nerve roots ofthe cauda equina demonstrateenhancement, likely postoperative.RL: 4700 [id number] 04:39:00 Test Item Value Reference Range Interpretation Comments POCT PREG (test code = 1605) negative On board controls acceptable with present C Line (test code = 3574) POCT PREG LOT # (test code = 3575) [id number] POCT PREG TEST DATE (test 02-12-22 code = 3576) Lab Interpretation (test code = Normal 08787-1) [facility]30[facility]07 Test Item Value Reference Range Interpretation Comments APPEARANCE (test code = Clear Clear 2057049818) COLOR (test code = Yellow Yellow 9890989633) PH (test code = 4.8-8.0 5265967697) SP GRAVITY (test code = 1.003-1.030 0694907401) GLU U QUAL (test code = Normal Normal 0529056314) BLOOD (test code = Negative Negative Interfere nce from 0566529772) ascorbic acid m ay cause false neg ative results. KETONES (test code = Negative Negative 1912029453) PROTEIN (test code = Negative Negative 2887-8) UROBILIN (test code = Normal Normal 3132008175) BILIRUBIN (test code = Negative Negative 4758995649) NITRITE (test code = Negative Negative 9915614516) LEUK GAETANO (test code = Negative Negative 9770894267) RBC/HPF (test code = See_Comment [Autom ated message] 3369483442) The system Oppex generated this result transmitted ref erence range: 0 - 3 HP F. The reference range was not used to int erpret this result as normal/abnormal . WBC/HPF (test code = See_Comment [Autom ated message] 5226503462) The system [employer] generated this result transmitted ref erence range: 0 - 5 HP F. The reference range was not used to int erpret this result as normal/abnormal . BACTERIA (test code = Negative Negative 2839937327) MUCOUS (test code = Slight Negative LPF A 6092365960) SQ EPITH (test code = See_Comment H [Auto mated message] 1336662140) The system Oppex generated this result transmitted ref erence range: <=2 HPF. The reference range was not used to int erpret this result as normal/abnormal . ASCORBIC ACID (test code 20 mg/dL = 8119328891) Lab Interpretation (test Abnormal code = 88921-4) [facility] MET[facility]OLIC PAN[facility] (08554)2020-08-29 03:19:20 Test Item Value Reference Range Interpretation Comments NA (test code = 139 mmol/L 135-145 3270692020) K (test code = 3.8 mmol/L 3.5-5.0 7885595802) CL (test code = 110 mmol/L 98-108 H 8063650140) CO2 TOTAL (test code = 18 mmol/L 23-31 L 8976532940) AGAP (test code = 2-16 9055565903) BUN (test code = 10 mg/dL 7-23 0048322139) GLUCOSE (test code = 95 mg/dL 70-110 4660754387) CREATININE (test code = 0.60 mg/dL 0.50-1.04 3706775631) TOTAL BILI (test code = 0.3 mg/dL 0.1-1.6 0819829803) CALCIUM (test code = 9.0 mg/dL 8.6-10.6 7922491794) T PROTEIN (test code = 7.0 g/dL 6.3-8.2 6834976139) ALBUMIN (test code = 4.2 g/dL 3.5-5.0 3162264028) ALK PHOS (test code = 67 U/L 34-122 3133085887) ALTv (test code = 24 U/L 5-35 1742-6) AST(SGOT) (test code = 30 U/L 13-40 8762352833) eGFR (test code = mL/min/1.73m2 0721310189) AURORA (test code = AURORA) Association of Glomerular Filtration Rate (GFR) and Staging of Kidney Disease* + --+ --+ ------+| GFR (mL/min/1.73 m2) ?| With Kidney Damage ?| ?Without Kidney Damage+ --------+ --------+ +| ?>90 ?| ?Stage one ?| ? Normal ?+ ---+ ---+ -------+| ?60-89 ?| ?Stage two ?| ? Decreased GFR ? + --+ --+ ------+| ?30-59 ?| ?Stage three ?| ? Stage three ? + --+ --+ ------+| ?15-29 ?| ?Stage four ? | ? Stage four ?+ ---+ ---+ -------+| ?<15 (or dialysis) ? ?| ?Stage five ? | ? Stage five ?+ ---+ ---+ -------+ *Each stage assumes the associated GFR level has been in effect for at least three months. ?Stages 1 to 5, with or without kidney disease, indicate chronic kidney disease. Notes: Determination of stages one and two (with eGFR >59mL/min/1.73 m2) requires estimation of kidney damage for at least three months as defined by structural or functional abnormalities of the kidney, manifested by either:Pathological abnormalities or Markers of kidney damage (including abnormalities in the composition of the blood or urine or abnormalities in imaging tests). Lab Interpretation Abnormal (test code = 26767-5) [facility] Center[facility] Whole [id number] 03:19:05 Test Item Value Reference Range Interpretation Comments LACTIC ACID (test code = 1.35 mmol/L 0.50-2.20 1287982418) Lab Interpretation (test code = Normal 06536-2) [facility] WITH [id number] 03:17:59 Test Item Value Reference Range Interpretation Comments WBC (test code = See_Comment [Automated 6690-2) message] The sy stem which generated this result transmitted reference range : 4.30 - 11.10 10*3/?L. The reference range was not used to interpret this result as normal/abnormal . RBC (test code = See_Comment L [Automated 789-8) message] The sy stem which generated this result transmitted reference range : 3.93 - 5.25 10*6/?L. The reference range was not used to interpret this result as normal/abnormal . HGB (test code = 9.4 g/dL 11.6-15.0 L 718-7) HCT (test code = 30.0 % 35.7-45.2 L 4544-3) MCV (test code = 84.3 fL 80.6-95.5 787-2) MCH (test code = 26.4 pg 25.9-32.8 785-6) MCHC (test code = 31.3 g/dL 31.6-35.1 L 786-4) RDW-SD (test code = 53.7 fL 39.0-49.9 H 30785-2) RDW-CV (test code = 17.3 % 12.0-15.5 H 788-0) PLT (test code = See_Comment H [Automated 777-3) message] The sy stem which generated this result transmitted reference range : 166 - 358 10*3/ ?L. The reference r edson was not used to interpret this result as normal/abnormal . MPV (test code = 9.3 fL 9.5-12.9 L 11714-2) NRBC/100 WBC (test See_Comment [Automat ed code = 9439560848) message] The system which generated this result transmitted reference range : 0.0 - 10.0 /100 WBCs. The refer ence range was not u sed to interpret th is result as normal/abnormal . NRBC x10^3 (test code <0.01 See_Comment [Auto mated = 6028902851) message] The s ystem which generated this result transmitted reference range : 10*3/?L. The reference range was not used to interpret this result as normal/abnormal . GRAN MAT (NEUT) % 58.1 % (test code = 770-8) IMM GRAN % (test code 0.20 % = 6950164685) LYMPH % (test code = 29.0 % 736-9) MONO % (test code = 8.3 % 5905-5) EOS % (test code = 4.0 % 713-8) BASO % (test code = 0.4 % 706-2) GRAN MAT x10^3(ANC) 5.40 10*3/uL 1.88-7.09 (test code = 2626173838) IMM GRAN x10^3 (test <0.03 0.00-0.06 code = 7426231145) LYMPH x10^3 (test code 2.69 10*3/uL 1.32-3.29 = 731-0) MONO x10^3 (test code 0.77 10*3/uL 0.33-0.92 = 742-7) EOS x10^3 (test code = 0.37 10*3/uL 0.03-0.39 711-2) BASO x10^3 (test code 0.04 10*3/uL 0.01-0.07 = 704-7) Lab Interpretation Abnormal (test code = 84371-0) [facility]ID [facility]2020-08-29 00:07:14 Test Item Value Reference Range Interpretation Comments SARS-CoV-2 Rapid ID NOW Not Detected Not Detected (test code = 82991-0) AURORA (test code = AURORA) ID NOW COVID-19 Assay is an isothermal nucleic acid amplification test intended for the qualitative detection of nucleic acid from SARS-CoV-2 viral RNA in nasopharyngeal ([employer]) specimens. It is used under Emergency Use Authorization (EUA) by FDA. The limit of detection (LOD) of the assay is 125 Genome Equivalents/mL. A positive result is indicative of the presence of SARS-CoV-2 RNA. ?Clinical correlation with patient history and other diagnostic information is necessary to determine patient infection status. A negative (Not Detected) result does not preclude SARS-CoV-2 infection. In patients with clinical symptoms and other tests that are consistent with SARS-CoV-2 infection, negative results should be treated as presumptive negative and a new specimen should be tested with alternative PCR molecular test. Invalid: Please collect a new specimen for repeat patient testing if clinically indicated. Lab Interpretation Normal (test code = 48902-1) [facility] / [facility] - DRUG SCREEN [id number] 04:20:00 Test Item Value Reference Range Interpretation Comments BENZO U (test code = Negative Negative 6924689219) DIVYA U (test code = Negative Negative 0594182469) AMPHET (test code = Negative Negative 9678225965) THC (test code = Negative Negative 0449676069) METHADONE (test code = Negative Negative 4499693800) Meth U (test code = Negative Negative 8030932955) OPIATES (test code = Presumptive Positive Negative A 8433937335) Cocaine Metabolite (test Negative Negative code = 2384747864) PROPOXY (test code = Negative Negative 2629743491) Tric U (test code = Negative Negative 9801000844) PCP (test code = Negative Negative 8312968444) OXYCOD (test code = Negative Negative 8103694438) AURORA (test code = AURORA) Urine Drug Cutoff Ranges Benzodiazepines: ? ? 150 ng/mLBarbiturates: ?200 ng/mLAmphetamine: ? 500 ng/mLCannabinoids: ?50 ?ng/mLMethadone: ? 200 ng/mLMethamphetamine: ? ? 500 ng/mL Opiates: ? 100 ng/mL or 2000 ng/mLCocaine: ? 150 ng/mLPropoxyphene: ?300 ng/mLTricyclics: ?300 ng/mLOxycodone: ? 100 ng/mLPCP: ? 25 ?ng/mL The results are to be used only for medical (i.e., treatment) purposes. Unconfirmed screening results must not be used for non-medical purposes (e.g., employment testing, legal testing). Lab Interpretation (test Abnormal code = 44515-6) [facility] (NA, K, CL, CO2, GLUCOSE, BUN, CREATININE, CA)2020-04-28 03:22:00 Test Item Value Reference Range Interpretation Comments NA (test code = 139 mmol/L 135-145 1036495150) K (test code = 4.4 mmol/L 3.5-5 7353901096) CL (test code = 105 mmol/L 98-108 3535539255) CO2 TOTAL (test code = 25 mmol/L 23-31 4047449858) AGAP (test code = 2-16 8714576623) BUN (test code = 11 mg/dL 7-23 5880624643) GLUCOSE (test code = 92 mg/dL 70-110 7383889604) CREATININE (test code 0.65 mg/dL 0.5-1.04 = 2150429981) CALCIUM (test code = 9.5 mg/dL 8.6-10.6 7567620400) eGFR Calculation mL/min/1.73m2 (Non-) (test code = 7634252054) eGFR Calculation mL/min/1.73m2 () (test code = 9630339673) AURORA (test code = AURORA) Association of Glomerular Filtration Rate (GFR) and Staging of Kidney Disease* + -+ + ---+| GFR (mL/min/1.73 m2) ?| With Kidney Damage ?| ?Without Kidney Damage+ -------+ ------+ ---------+| ?>90 ?| ?Stage one ?| ? Normal ?+ --+ -+ ----+| ?60-89 ?| ?Stage two ?| ? Decreased GFR ? + -+ + ---+| ?30-59 ?| ?Stage three ?| ? Stage three ? + -+ + ---+| ?15-29 ?| ?Stage four ? | ? Stage four ?+ --+ -+ ----+| ?<15 (or dialysis) ? ?| ?Stage five ? | ? Stage five ?+ --+ -+ ----+ *Each stage assumes the associated GFR level has been in effect for at least three months. ?Stages 1 to 5, with or without kidney disease, indicate chronic kidney disease. Notes: Determination of stages one and two (with eGFR >59mL/min/1.73 m2) requires estimation of kidney damage for at least three months as defined by structural or functional abnormalities of the kidney, manifested by either:Pathological abnormalities or Markers of kidney damage (including abnormalities in the composition of the blood or urine or abnormalities in imaging tests). [facility] 03:17:00 Test Item Value Reference Range Interpretation Comments APPEARANCE (test code = Cloudy Clear A 7172136425) COLOR (test code = Yellow Yellow 8327566324) PH (test code = 4.8-8.0 3191023018) SP GRAVITY (test code = 1.003-1.030 4599494528) GLU U QUAL (test code = Normal Normal 6904910106) BLOOD (test code = Negative Negative 8469883498) KETONES (test code = Negative Negative 0656120114) PROTEIN (test code = Negative Negative 2887-8) UROBILIN (test code = Normal Normal 3412251763) BILIRUBIN (test code = Negative Negative 3593016481) NITRITE (test code = Negative Negative 1275997321) LEUK GAETANO (test code = Negative Negative 1580536627) RBC/HPF (test code = <1 See_Comment [Autom ated message] 4053889937) The system Oppex generated this result transmitted ref erence range: 0 - 3 HP F. The reference range was not used to int erpret this result as normal/abnormal . WBC/HPF (test code = See_Comment [Autom ated message] 6403447539) The system Oppex generated this result transmitted ref erence range: 0 - 5 HP F. The reference range was not used to int erpret this result as normal/abnormal . BACTERIA (test code = Many Negative A 0214435005) MUCOUS (test code = Slight Negative LPF A 5737481285) AMORPHOUS (test code = Moderate Rare HPF A 2892138052) SQ EPITH (test code = HPF 9999826521) WBC CLUMPS (test code = See_Comment H [Au tomated message] 6650923257) The system Oppex generated this result transmitted ref erence range: <=1 HPF. The reference range was not used to int erpret this result as normal/abnormal . YEAST BUD (test code = See_Comment H [Aut omated message] 7483479098) The system Oppex generated this result transmitted ref erence range: <=1 HPF. The reference range was not used to int erpret this result as normal/abnormal . Lab Interpretation (test Abnormal code = 18045-6) [facility] with [id number] 03:11:00 Test Item Value Reference Range Interpretation Comments WBC (test code = See_Comment [Automated 6690-2) message] The sy stem which generated this result transmitted reference range : 4.30 - 11.10 10*3/?L. The reference range was not used to interpret this result as normal/abnormal . RBC (test code = See_Comment [Automated 789-8) message] The sy stem which generated this result transmitted reference range : 3.93 - 5.25 10*6/?L. The reference range was not used to interpret this result as normal/abnormal . HGB (test code = 11.3 g/dL 11.6-15 L 718-7) HCT (test code = 35.5 % 35.7-45.2 L 4544-3) MCV (test code = 86.0 fL 80.6-95.5 787-2) MCH (test code = 27.4 pg 25.9-32.8 785-6) MCHC (test code = 31.8 g/dL 31.6-35.1 786-4) RDW-SD (test code = 47.8 fL 39-49.9 49978-0) RDW-CV (test code = 15.2 % 12-15.5 788-0) PLT (test code = See_Comment H [Automated 777-3) message] The sy stem which generated this result transmitted reference range : 166 - 358 10*3/ ?L. The reference r edson was not used to interpret this result as normal/abnormal . MPV (test code = 9.7 fL 9.5-12.9 69154-0) NRBC/100 WBC (test See_Comment [Automat ed code = 1329538360) message] The system which generated this result transmitted reference range : 0.0 - 10.0 /100 WBCs. The refer ence range was not u sed to interpret th is result as normal/abnormal . NRBC x10^3 (test code <0.01 See_Comment [Auto mated = 9516168490) message] The s ystem which generated this result transmitted reference range : 10*3/?L. The reference range was not used to interpret this result as normal/abnormal . GRAN MAT (NEUT) % 70.3 % (test code = 770-8) IMM GRAN % (test code 0.50 % = 9154308024) LYMPH % (test code = 21.0 % 736-9) MONO % (test code = 5.2 % 5905-5) EOS % (test code = 2.4 % 713-8) BASO % (test code = 0.6 % 706-2) GRAN MAT x10^3(ANC) 7.03 10*3/uL 1.88-7.09 (test code = 0796732091) IMM GRAN x10^3 (test 0.05 10*3/uL 0-0.06 code = 9750986558) LYMPH x10^3 (test code 2.10 10*3/uL 1.32-3.29 = 731-0) MONO x10^3 (test code 0.52 10*3/uL 0.33-0.92 = 742-7) EOS x10^3 (test code = 0.24 10*3/uL 0.03-0.39 711-2) BASO x10^3 (test code 0.06 10*3/uL 0.01-0.07 = 704-7) Lab Interpretation Abnormal (test code = 41663-5) [facility] [id number] 02:40:00 Test Item Value Reference Range Interpretation Comments POCT PREG (test code = 1605) Negative On board controls acceptable with Present C Line (test code = 3574) POCT PREG LOT # (test code = HCG [id number]) POCT PREG TEST DATE (test 12/13/2021 code = 3576) Lab Interpretation (test code = Normal 87796-0) [facility] Center[facility] [id number] 02:52:00 Test Item Value Reference Range Interpretation Comments LACTIC ACID (test code = LACT) 1.0 mmol/L 0.7-2.0 N COMPREHENSIVE METABOLIC [id number] 02:28:00 Test Item Value Reference Range Interpretation [...] = ALKP) UA RFLX MICR CULT IF [id number] 01:22:00 Test Item Value Reference Range Interpretation [...] URINE: CLEAN CATCHUA RFLX MICR CULT IF [id number] 01:19:00 Test Item Value Reference Range Interpretation [...] code = LACT) toFirst Name:ENMANUEL [id number] Last Name:CHEL JUNG READ BACK AND AURORA Love C.LAB.MG, on , @ 0052. [id number] 00:50:00 Test Item Value Reference Range Interpretation Comments LIPASE (test code = LIP) 54 U/L 23-300 N CBC W/AUTO [id number] 00:49:00 Test Item Value Reference Range Interpretation [...] x10 3/uL 0.0-0.1 N - US RETRO [id number] 00:16:00 [facility] 1995 Sex: F [place] [facility]: [address] St: REG Name: CRISTINONATIVIDAD BUSTAMANTE [facility] : 1995 Age/S: 24/F [address] Unit #: [id number] Loc: [place] [address] Phys: Luis Goddard NP Acct: [id number] Dis Date: Status: REG ER PHONE #: [phone] Exam Date: 04/24/2020 0005 FAX #: [phone] Reason: left flank pain EXAMS: CPT CODE: [id number] US RETRO LTD 37035 EXAM: - US RETRO LTD LOCATION: H57 [...] Leonel Delacruz MD CC: Technologist: Francine Jimenez RDMI RVT Trnscrd Date/Time/By: 04/25/2020 (0016) : By: carrie [email or web address] PAGE 1 Signed Report [place] [facility]: St: REG Name: NATIVIDAD GREGG [facility] : 1995 Age/S: 24/F [address] Unit #: [id number] Loc: [place] [address] Phys: Luis Goddard NP Acct: [id number] Dis Date: Status: REG ER PHONE #: [phone] Exam Date: 04/24/2020 0005 FAX #: [phone] Reason: left flank pain EXAMS: CPT CODE: [id number] US RETRO LTD 42226 <Continued> Orig Print D/T: S: 04/25/2020 (0019) PAGE 2 Signed ReportCOVID 19 INHOUSE [id number] 21:16:00 Test Item Value Reference Range Interpretation Comments COVID 19 INHOUSE AG NEGATIVE Negative Per manu facturer, (test code = negative result s should [id number]) be treated aspr esumptive and, if inconsi [...] nsistent with COVID-19. - XR CHEST 1 [id number] 20:44:00 [facility] 1995 Sex: F Name: NATIVIDAD GREGG [facility] : 1995 Age/S: 24 / F [address] Unit #: [id number] Loc: [place] [address] Phys: Anita Kruse MD Acct: [id number] Dis Date: Status: REG ER PHONE #: [phone] Exam Date: 01/18/20202023 FAX #: Reason: Code Sepsis EXAMS: CPT: [id number] XR CHEST 1 V 70299 Fluoro Time: DAP (Gy m2): Air Kerma [...] PAGE 1 Signed Report Name: NATIVIDAD GREGG [facility] : 1995 Age/S: 24 / F [address] Unit #: [id number] Loc: [place] [address] Phys: Anita Kruse MD Acct: [id number] Dis Date: Status: REG ER PHONE #: [phone] Exam Date: 01/18/20202023 FAX #: Reason: Code Sepsis EXAMS: CPT: [id number] XR CHEST 1 V 04676 Fluoro Time: DAP (Gy m2): Air Kerma (mGy): <Continued> Technologist: Brandi Clark RT(R)(CT) Trnscb Date/Time: 01/18/2020 (2043) [email or web address] Orig Print D/T: S: 01/18/2020 (2047) PAGE 2 Signed ReportUA RFLX MICR CULT IF [id number] 20:17:00 Test Item Value Reference Range Interpretation [...] UACULT) Indication for culture: Suprapubic PainBASIC METABOLIC [id number] 20:13:00 Test Item Value Reference Range Interpretation [...] 8.5-10.1 N Completed by Nursing: NOHEPATIC FUNCTION [id number] 20:13:00 Test Item Value Reference Range Interpretation [...] N code = ALKP) Completed by Nursing: [id number] 20:13:00 Test Item Value Reference Range Interpretation [...] jesse yby method. Completed by Nursing: NOLACTIC [id number] 20:13:00 Test Item Value Reference Range Interpretation Comments LACTIC ACID (test code = LACT) 1.8 mmol/L 0.4-2.0 N CBC W/AUTO [id number] 19:57:00 Test Item Value Reference Range Interpretation [...] NO DIFF/SCN CRITERIA = MDIFF) BASIC METABOLIC [id number] 07:22:00 Test Item Value Reference Range Interpretation [...] 8.7 mg/dL 8.4-10.2 N CA) CBC W/AUTO [id number] 07:03:00 Test Item Value Reference Range Interpretation [...] 0.05 x10 3/uL 0.0-0.1 N BASIC METABOLIC [id number] 05:56:00 Test Item Value Reference Range Interpretation [...] 8.4 mg/dL 8.4-10.2 N CA) CBC W/AUTO [id number] 05:42:00 Test Item Value Reference Range Interpretation [...] *LDL Cholesterol<1 00mg/ dL: Desirable L DL-C ugyslgsyetvzo02 0-159 mg/dL: Borderli ne High Risk LDL-C hgyqfjsvjvwno14 0-189 mg/dL: High ris k LDL-C concentra [...] AVG 11.04~~~~~~~~~~ ~~~~~~~ ~~~~~~~~~~~~~~~ ~~~~~~~ ~~~~~~~~~~~~~~~ ~~~~~~N [facility] Cholest shubham Education (WVEP ) Guidelines:~~~~ ~~~~~~~ ~~~~~~~~~~~~~~~ ~~~~~~~ ~~~~~~~~~~~~~~~ ~~~~~~~ ~~~~~ HDL Cholesterol<4 0mg/dL: HDL Cholesterol (Major risk factor for CHD)>60mg/dL: H DL Cholesterol (Ne gative risk factor for CHD)40-59mg/dL: Borderline Risk L DL Cholesterol<1 00mg/dL : Desirable LDL -C zldafykjanbpy44 0-159mg /dL: Borderline High Risk LDL-C nabwkzhgpgpks56 0-189mg /dL: High risk LDL-C concentration H DL-LDL Cholesterol is affected by a n umber of factors such as smoking, age an d sex.~~~~~~~~~~~ ~~~~~~~ ~~~~~~~~~~~~~~~ ~~~~~~~ ~~~~~~~~~~~~~~~ ~~~~~ LACTIC [id number] 17:52:00 Test Item Value Reference Range Interpretation Comments LACTIC ACID (test code = LACT) 1.6 mmol/L 0.7-2.0 N Coronavirus 2018 nCoV [id number] 17:03:00 Test Item Value Reference Range Interpretation Comments Coronavirus 2018 Negative NEGATIVE This test h as been nCoV Bedside (test authorize d by FDA under code = [id number]) an EUA for use byauthorized laboratories; This [...] and/o r diagnosis of CO VID-19 under Dnkigqy65 4(b)(1) of the Act, 21 U.S .C. 360bbb-3(b)(1), unless theauthorizatio n is terminated or r evoked sooner. LACTIC [id number] 16:44:00 Test Item Value Reference Range Interpretation Comments LACTIC ACID (test 2.1 mmol/L 0.7-2.0 HH Critical V alue reported code = LACT) toFirst Name:CU D6486 Last Name:CHEL JUNG READ BACK [employer] Love C.LAB.LAS1, on 01/15/20, @ 164 4. UA RFLX MICR CULT IF [id number] 16:42:00 Test Item Value Reference Range Interpretation [...] for culture: Dysuria/FrequencySOURCE OF URINE: CLEAN CATCHLACTIC [id number] 15:54:00 Test Item Value Reference Range Interpretation Comments LACTIC ACID (test 2.6 mmol/L 0.7-2.0 HH Critical V alue reported code = LACT) toFirst Name:KS I8356 Last Name:[facility] FABIANA [employer] BACK [employer]UR[employer] Love C.LAB.LAS1, on 01/15/20, @ 155 4. BASIC METABOLIC [id number] 15:50:00 Test Item Value Reference Range Interpretation [...] 9.6 mg/dL 8.4-10.2 N CA) LIVER FUNCTION [id number] 15:50:00 Test Item Value Reference Range Interpretation [...] U/L 38-126 N (test code = ALKP) [id number] 15:50:00 Test Item Value Reference Range Interpretation Comments LIPASE (test code = LIP) 47 U/L 23-300 N PROTHROMBIN [id number] 15:50:00 Test Item Value Reference Range Interpretation [...] - 3.0 Atrial fibrillation 2.0 - 3.03. Pearl Stringer al prosthetic valv es (high risk) 2.5 - 3.5 * If oral anticoagulant t herapy is elected to preventrecurren t myocardial infa rction, an INR of 2.5-3 .5 isrecommended, consistent with Food and Drug Administrationr ecommen dations. THROMBOPLASTIN TIME [id number] 15:50:00 Test Item Value Reference Range Interpretation Comments THROMBOPLASTIN TIME 31.8 SECONDS 23.4-37.0 N Therap eutic Range PARTIAL (test code = for Hep katherine PTT) EFFECTIVE Heparin IU/mL aPT T Seconds0.3 64.30.7 88.8 BASIC METABOLIC [id number] 15:49:00 Test Item Value Reference Range Interpretation [...] 9.6 mg/dL 8.4-10.2 N CA) LIVER FUNCTION [id number] 15:49:00 Test Item Value Reference Range Interpretation [...] U/L 38-126 N (test code = ALKP) [id number] 15:49:00 Test Item Value Reference Range Interpretation Comments LIPASE (test code = LIP) U/L 23-300 CBC W/AUTO [id number] 15:30:00 Test Item Value Reference Range Interpretation [...] 3/uL 0.0-0.1 N - XR CHEST 1 [id number] 15:03:00 [facility] : 1995 Sex: F [place] [facility]: St: PRE Name: NATIVIDAD GREGG [facility] : 1995 Age/S: 24/F [address] Unit #: [id number] Loc: [place] [address] Phys: Victorino Schofield Acct: [id number] Dis Date: Status: PRE ER PHONE #: [phone] Exam Date: 01/15/2020 1450 FAX #: [phone] Reason: CODE SEPSIS EXAMS: CPT CODE: [id number] XR CHEST 1 V 45740 EXAM: Portable chest x-ray, one view INDICATION: [...] CC: Technologist: MANPREET COSBY; STUDENT 2ND YEAR [facility] Date/Time/By: 01/15/2020 (1374) : By: Jaydon PAGE 1 Signed Report [facility] [facility]: St: PRE Name: NATIVIDAD GREGG [facility] : 1995 Age/S: 24/F [address] Unit #: [id number] Loc: [place] [address] Phys: Mason Schofield Acct: [id number] Dis Date: Status: PRE ER PHONE #: [phone] Exam Date: 01/15/2020 1450 FAX #: [phone] Reason: CODE SEPSIS EXAMS: CPT CODE: [id number] XR CHEST 1 V 50453 <Continued> Orig Print D/T: S: 01/15/2020 (1819) PAGE 2 Signed Report- XR CHEST 1 [id number] 15:03:00[facility] : 1995 Sex: F [facility] [facility]: St: DIS Name: NATIVIDAD GREGG : 1995 Age/S: 24/F [address] Unit #: [id number] Loc: [address] [place] [address] Phys: Mason SchofieldYADIRA Acct: [id number] Dis Date: [id number] Status: DIS IN PHONE #: [phone] Exam Date: 01/15/2020 4273 FAX #: [phone] Reason: CODE SEPSIS EXAMS: CPT CODE: [id number] XR CHEST 1 V 62637 EXAM: Portable chest x-ray, one view INDICATION: [...] CC: Technologist: HARJEET CASE; STUDENT 2ND YEAR [facility] Date/Time/By: 01/15/2020 (3127) : By: Jaydon PAGE 1 Signed Report [facility] [facility]: St: DIS Name: NATIVIDAD GREGG : 1995 Age/S: 24/F [address] Unit #: [id number] Loc: [address] [place] [address] Phys: Mason Schofield Acct: [id number] Dis Date: [id number] Status: DIS IN PHONE #: [phone] Exam Date: 01/15/2020 1450 FAX #: [phone] Reason: CODE SEPSIS EXAMS: CPT CODE: [id number] XR CHEST 1 V 02703 <Continued> Orig Print D/T: S: 01/15/2020 (1507) PAGE 2 Signed ReportLACTIC [id number] 01:50:00 Test Item Value Reference Range Interpretation Comments LACTIC ACID (test code = LACT) 1.2 mmol/L 0.7-2.0 N COMPREHENSIVE METABOLIC [id number] 00:45:00 Test Item Value Reference Range Interpretation [...] N (test code = ALKP) HCG SERUM [id number] 00:45:00 Test Item Value Reference Range Interpretation Comments HCG SERUM QUAL (test code = HCGQL) NEGATIVE NEGATIVE LACTIC [id number] 00:13:00 Test Item Value Reference Range Interpretation Comments LACTIC ACID (test 2.3 mmol/L 0.7-2.0 HH Critical V alue reported code = LACT) toFirst Name: K9646 Last Name:CHEL JUNG [employer] ShuklaLAB.WR, on , @ 0013. UA RFLX MICR CULT IF [id number] 00:06:00 Test Item Value Reference Range Interpretation [...] Dysuria/FrequencySOURCE OF URINE: CLEAN CATCH COMPREHENSIVE METABOLIC [id number] 23:43:00 Test Item Value Reference Range Interpretation [...] N (test code = ALKP) HCG SERUM [id number] 23:43:00 Test Item Value Reference Range Interpretation Comments HCG SERUM QUAL (test code = HCGQL) NEGATIVE CBC W/AUTO [id number] 23:38:00 Test Item Value Reference Range Interpretation [...] BA#) 0.06 x10 3/uL 0.0-0.1 N LACTIC [id number] 19:19:00 Test Item Value Reference Range Interpretation Comments LACTIC ACID (test code = LACT) 1.6 mmol/L 0.7-2.0 N UA RFLX MICR CULT IF [id number] 18:41:00 Test Item Value Reference Range Interpretation [...] Flank PainSOURCE OF URINE: CLEAN CATCHBASIC METABOLIC [id number] 18:39:00 Test Item Value Reference Range Interpretation [...] 10.0 mg/dL 8.4-10.2 N CA) LIVER FUNCTION [id number] 18:39:00 Test Item Value Reference Range Interpretation [...] U/L 38-126 N (test code = ALKP) [id number] 18:39:00 Test Item Value Reference Range Interpretation Comments LIPASE (test code = LIP) 81 U/L 23-300 N BASIC METABOLIC [id number] 18:37:00 Test Item Value Reference Range Interpretation [...] 10.0 mg/dL 8.4-10.2 N CA) LIVER FUNCTION [id number] 18:37:00 Test Item Value Reference Range Interpretation [...] U/L 38-126 N (test code = ALKP) [id number] 18:37:00 Test Item Value Reference Range Interpretation Comments LIPASE (test code = LIP) U/L 23-300 - CT ABD PELVIS W/O [id number] 18:36:00 [facility] : 1995 Sex: F FAX: Mayelin Santos [phone] [place] [facility]: St: PRE Name: CRISTINONATIVIDAD BUSTAMANTE DESEAN [facility] : 1995 Age/S: 24/F [address] Unit: [id number] Loc: [place] [address] Phys: Mayelin Tyler FINANCE LECTURER Acct: [id number] Dis Date: Status: PRE ER PHONE #: [phone] Exam Date: 01/13/2020 1820 FAX #: [phone] Reason: flank pain EXAMS: CPT CODE: [id number] CT ABD PELVIS W/O CONT 25737 Examination: Abdomen and pelvic CT without contrast [...] 1 Signed Report (CONTINUED) FAX: Mayelin Santos [phone] [place] [facility]: St: PRE--------- Name: NATIVIDAD GREGG [facility] : 1995 Age/S: 24/F [address] Unit: [id number] Loc: [place] [address] Phys: Mayelin Mesa FINANCE LECTURER Acct: [id number] Dis Date: Status: PRE ER PHONE #: [phone] Exam Date: 01/13/2020 1820 FAX #: [phone] Reason: flank pain EXAMS: CPT CODE: [id number] CT ABD PELVIS W/O CONT 72795 <Continued> CC: Mayelin Tyler FINANCE LECTURER Technologist: Rosa Savage Trnscrd Dt/Tm: 01/13/2020 (183) MistyJH12 Orig Print D/T: S: 01/13/2020 (1839 [...] Flank PainSOURCE OF URINE: CLEAN CATCHCBC W/AUTO [id number] 18:19:00 Test Item Value Reference Range Interpretation [...] = BA#) 0.08 x10 3/uL 0.0-0.[address] Stone Protocol [facility] GRE[facility] : 1995 Sex: FZOYA [facility] Pt Name: NATIVIDAD GREGG [address] [facility] Phys: Dennis Forman DO [place] [address] : 1995 Age: 25 SEX:F [phone] Exam Date: 01/17/21 Status: REG ER Acct: [id number] Loc: [facility] Pt Unit #: [id number] Report #: [id number] CC: Dennis Forman DO CAT SCAN REPORT Order # Category/Exam [id number] CT/CT Stone Protocol ([id number]): . Results CT ABDOMEN NONCONTRAST CT PELVIS NONCONTRAST:(Urolithiasis protocol) DATE: 01/17/2021 HISTORY: Left flank pain TECHNIQUE: IV injection of iodinated contrast media: None Oral contrast media: None FINDINGS: Other than for urolithiasis, the lack of IV and oral contrast limits the evaluation. Liver: No contour abnormalities. Spleen: No splenomegaly. Pancreas: No contour abnormalities. Adrenals: No mass. Kidneys: Multiple punctate bilateral renal calculi, left more than right, on the order of 2 mm each. No overt hydronephrosis. Ureters: No calculi. Bladder: No calculi. Abdominal aorta: No aneurysm.Small bowel: No dilation. Colon: No adjacent fat stranding. Appendix: No dilation or adjacent fat stranding. Free air: None Free fluid: None Lumbar spine: Vertebral body heights are maintained. No high- grade central spinal canal stenosis. IMPRESSION: 1. Bilateral nephrolithiasis consisting of multiple tiny bilateral renal calculi. 2. No obstructive uropathy Reported By: Juan Pablo Arnold MD Electronically Signed Date/Time: 01/17/21 183 Technologist: BOBBY Dictated Date/Time: 01/17/21 1829 Transcribed Date/Time:
[2021-02-01 23:41] LABS: Urine Blood 1+ (Negative); Urine Glucose Negative (Negative); Urine Protein Negative (Negative); Urine Specific Gravity >=1.030 (1.005-1.030)
[2021-02-01 23:55] LABS: Urine Specific Gravity/Preg >1.030 (1.005-1.030)
[2021-02-02] MEDS ORDERED: MORPHINE 4 MG/ML SYR ONE (00:12)
[2021-02-02] MEDS ORDERED: NA CHLORIDE 0.9% 1,000 ML ONE (00:13)
[2021-02-02] MEDS ORDERED: ONDANSETRON 4 MG/2 ML VIAL ONE (00:13)
[2021-02-02 00:35] LABS: Absolute Lymphocytes (CBC) 3.3 K/uL (0.7-4.9); Basophils % 0.9 % (0-1.3); Hematocrit 31.9 % (36.0-45.0); Lymphocytes % 29.1 % (15.3-44.8); MPV 7.8 fL (7.6-11.3)
[2021-02-02 00:49] LABS: ALT/SGPT 28 U/L (12-78); AST/SGOT 14 U/L (15-37); Albumin 3.8 g/dL (3.4-5.0); Alkaline Phosphatase 90 U/L (45-117); BUN Blood Urea Nitrogen 13 mg/dL (7-18); Bicarbonate 19 mmol/L (21-32); Bilirubin Direct < 0.1 mg/dL (0-0.2); Bilirubin Total 0.2 mg/dL (0.2-1.0); Glucose Level 91 mg/dL (74-106); Lipase 78 U/L (73-393); Potassium 3.8 mmol/L (3.5-5.1); Protein, Total 8.3 g/dL (6.4-8.2); Sodium Level 143 mmol/L (136-145)
[2021-02-02 01:15] LABS: Barbiturates NEGATIVE (NEGATIVE); Benzodiazepines NEGATIVE (NEGATIVE); Cocaine NEGATIVE (NEGATIVE); METHAMPHETAM NEGATIVE (NEGATIVE); Methadone NEGATIVE (NEGATIVE); Opiates NEGATIVE (NEGATIVE); Phencyclidine NEGATIVE (NEGATIVE); THC Cannibis NEGATIVE (NEGATIVE)
[2021-02-02] MEDS ORDERED: HYDROMORPHONE HCL 1 MG/ML INJ ONE (01:16)
--- NOTE | 2021-02-02 01:58 | EDPHYS ---
Physician Documentation [facility] Name: Ana Lilia Kline Age: 25 yrs Sex: Female : 1995 Arrival Date: 02/01/2021 Time: 23:07 Bed 18 Private MD: ED Physician Oscar Escobar HPI: 02/02 00:19 This 25 yrs old Female presents to ER via Ambulatory with complaints of Back Pain, mh7 BURNING IN LOWER BACK. 00:19 The patient presents with pain that is acute, with no known mechanism of injury. The mh7 symptoms are located in the low back, coccyx area. Onset: The symptoms/episode began/occurred 2 day(s) ago. The pain does not radiate. Associated signs and symptoms: Pertinent negatives: abdominal pain, chest pain, constipation, dysuria, fever, headache, hematuria, incontinence, nausea, numbness, tingling, urinary retention, vomiting, weakness. The problem was sustained His pain is related to prior procedure done by neurosurgeon. Modifying factors: The patient symptoms are alleviated by nothing, the patient symptoms are aggravated by nothing. Severity of symptoms: At their worst the symptoms were moderate, 2 day(s) ago, in the emergency department the symptoms are unchanged. The patient has experienced similar episodes in the past, multiple times. 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 N/A - control method ld1 Historical: - Allergies: 23:13 Demerol; ld1 23:13 Doxycycline; ld1 23:13 Haldol; ld1 23:13 Reglan; ld1 23:13 Toradol; ld1 23:13 Zithromax; ld1 - Home Meds: 23:13 Cymbalta Oral [Active]; Flexeril Oral [Active]; gabapentin Oral [Active]; tramadol 100 ld1 mg Oral BP25 1 cap once daily [Active]; methocarbamol 750 mg Oral tab 1 tab every 4 hours [Active]; - PMHx: 23:13 Asthma; Endometrosis; Kidney stones; polycystic ovarian disease; sudotumor ceribri; ld1 - PSHx: 23:13 Cholecystectomy; Kidney stent placed and removed; L5\T\6 discectomy; Multiple I\T\D's from ld 1 abcesses; Right fallopen tube removed from torson; seroma removed from back; - Immunization history:: Adult Immunizations up to date, Client reports receiving the 2nd dose of the Covid vaccine. - Social history:: Smoking status: Patient reports the use of cigarette tobacco products, smokes one-half pack cigarettes per day, Patient/guardian denies using alcohol, street drugs. ROS: 02/02 00:19 Constitutional: Negative for fever, chills, and weight loss, Eyes: Negative for injury, mh7 pain, redness, and discharge, ENT: Negative for injury, pain, and discharge, Neck: Negative for injury, pain, and swelling, Cardiovascular: Negative for chest pain, palpitations, and edema, Respiratory: Negative for shortness of breath, cough, wheezing, and pleuritic chest pain, Abdomen/GI: Negative for abdominal pain, nausea, vomiting, diarrhea, and constipation, : Negative for injury, bleeding, discharge, and swelling, MS/Extremity: Negative for injury and deformity, Skin: Negative for injury, rash, and discoloration, Neuro: Negative for headache, weakness, numbness, tingling, and seizure, Psych: Negative for depression, anxiety, suicide ideation, homicidal ideation, and hallucinations, Allergy/Immunology: Negative for hives, rash, and allergies, Endocrine: Negative for neck swelling, polydipsia, polyuria, polyphagia, and marked weight changes, Hematologic/Lymphatic: Negative for swollen nodes, abnormal bleeding, and unusual bruising. Exam: 00:19 Head/Face: Normocephalic, atraumatic. Eyes: Pupils equal round and reactive to light, mh7 extra-ocular motions intact. Lids and lashes normal. Conjunctiva and sclera are non-icteric and not injected. Cornea within normal limits. Periorbital areas with no swelling, redness, or edema. Neck: Trachea midline, no thyromegaly or masses palpated, and no cervical lymphadenopathy. Supple, full range of motion without nuchal rigidity, or vertebral point tenderness. No Meningismus. Chest/axilla: Normal chest wall appearance and motion. Nontender with no deformity. No lesions are appreciated. Cardiovascular: Regular rate and rhythm with a normal S1 and S2. No gallops, murmurs, or rubs. Normal PMI, no JVD. No pulse deficits. Respiratory: Lungs have equal breath sounds bilaterally, clear to auscultation and percussion. No rales, rhonchi or wheezes noted. No increased work of breathing, no retractions or nasal flaring. Abdomen/GI: Soft, non-tender, with normal bowel sounds. No distension or tympany. No guarding or rebound. No evidence of tenderness throughout. Skin: Warm, dry with normal turgor. Normal color with no rashes, no lesions, and no evidence of cellulitis. MS/ Extremity: Pulses equal, no cyanosis. Neurovascular intact. Full, normal range of motion. Neuro: Awake and alert, GCS 15, oriented to person, place, time, and situation. Cranial nerves II-XII grossly intact. Motor strength 5/5 in all extremities. Sensory grossly intact. Cerebellar exam normal. Normal gait. 00:19 Constitutional: The patient appears in no acute distress, alert, awake, anxious, uncomfortable. 00:19 Psych: Behavior/mood is anxious, Affect is animated, Oriented to person, place, time, Patient has no thoughts/intents to harm self or others. Judgement / Insight is normal. Memory is normal. Delusions/hallucinations are not present. 00:19 Back: pain, that is moderate, of the lumbar area, ROM is painful, with all movement, mh7 normal spinal alignment noted, CVA tenderness, is absent, muscle spasm, is not present, Straight leg raises: of both lower extremities does not illicit pain. Vital Signs: 02/01 23:12 BP 147 / 90; Pulse 141; Resp 26; Temp 98.2(O); Pulse Ox 100% on R/A; Weight 117.93 kg; ld1 Height 5 ft. 2 in. (157.48 cm); Pain 8/10; 23:12 Body Mass Index 47.55 (117.93 kg, 157.48 cm) ld1 MDM: 02/02 01:51 Differential diagnosis: chronic back pain, Epidural or Perispinal Abcess Fracture 7 Osteoarthritis Pyelonephritis sprain, Ureterolithiasis. Data reviewed: vital signs, nurses notes, old medical records. Data interpreted: Pulse oximetry: on room air is 100 %. Interpretation: normal. 01:53 ED course: Informed by nursing staff that patient left against medical advice.. [facility] 01:57 Patient medically screened. [facility] 02/01 23:40 Order name: Urine Dipstick-Ancillary; Complete Time: 23:47 EDMS 11/19 23:47 Order name: UDS; Complete Time: 01:37 [facility] 02/01 23:51 Order name: Basic Metabolic Panel; Complete Time: 01:02 [facility] 02/01 23:51 Order name: CBC with Diff; Complete Time: 01:02 [facility] 02/01 23:51 Order name: Hepatic Function; Complete Time: 01:02 [facility] 02/01 23:51 Order name: Lipase; Complete Time: 01:02 [facility] 02/01 23:52 Order name: Urine --Ancillary (enter results); Complete Time: 00:01 [facility] 02/02 00:05 Order name: Lactate; Complete Time: 01:02 [facility] 02/01 23:47 Order name: Urine Test (obtain specimen); Complete Time: 23:51 [facility] 02/01 23:51 Order name: IV Saline Lock; Complete Time: 23:54 [facility] 02/01 23:51 Order name: Labs collected and sent; Complete Time: 00:08 [facility] Administered Medications: 01:54 Discontinued: NS 0.9% 1000 ml IV at 1000 ml once cc4 00:15 Drug: NS 0.9% 1000 ml Route: IV; Rate: 1000 ml; Site: right antecubital; cc4 00:15 Drug: morphine 4 mg Route: IVP; Site: right antecubital; cc4 00:15 Drug: Zofran (Ondansetron) 4 mg Route: IVP; Site: right forearm; cc4 01:00 Follow up: Response: No adverse reaction; Pain is decreased cc4 01:35 Follow up: Response: No adverse reaction; Pain is decreased cc4 01:10 Drug: Dilaudid (HYDROmorphone) 1 mg Route: IVP; Site: right forearm; cc4 01:35 Follow up: Response: No adverse reaction; Pain is decreased cc4 Disposition Summary: 02/02/21 01:57 Left Against Medical Advice Location: Home [facility] Problem: an acute exacerbation [facility] Symptoms: have improved [facility] Condition: Stable [facility] Diagnosis - Low back pain [facility] Followup: [facility] - With: Private Physician - When: 1 - 2 days - Reason: Worsening of condition, Recheck today's complaints, Continuance of care, Re-evaluation by your physician Signatures: Dispatcher [employer] Oscar Mandel MD MD mh7 Paz Agudelo RN RN ld1 Valarie Lang RN RN cc4 Corrections: (The following items were deleted from the chart) 01:01 01:00 SARS-COV-2 RT PCR+MOL.LAB.BRZ ordered. EDMS EDMS 01:42 00:06 Abdomen Pelvis W Con+CT.RAD.BRZ ordered. EDMS EDMS
--- NOTE | 2021-02-02 01:58 | ER ---
Nurse's Notes [facility] Name: Ana Lilia Kline Age: 25 yrs Sex: Female : 1995 Arrival Date: 02/01/2021 Time: 23:07 Bed 18 Private MD: Diagnosis: Low back pain Presentation: 02/01 23:12 Chief complaint: Patient states: I began having back pain , it has ld1 progressively gotten worse. Coronavirus screen: At this time, the client does not indicate any symptoms associated with coronavirus-19. Ebola Screen: No symptoms or risks identified at this time. Initial Sepsis Screen: Does the patient meet any 2 criteria? No. Patient's initial sepsis screen is negative. Does the patient have a suspected source of infection? No. Patient's initial sepsis screen is negative. Risk Assessment: Do you want to hurt yourself or someone else? Patient reports no desire to harm self or others. Onset of symptoms was February 01, 2021. 23:12 Method Of Arrival: Ambulatory ld1 23:12 Acuity: KATY 4 ld1 Triage Assessment: 23:13 General: Appears in no apparent distress. uncomfortable, Behavior is cooperative, ld1 appropriate for age, anxious. Pain: Complains of pain in low back area Pain does not radiate. Pain currently is 8 out of 10 on a pain scale. Quality of pain is described as stabbing, throbbing, Pain began suddenly, Is continuous. EENT: No signs and/or symptoms were reported regarding the EENT system. Neuro: Level of Consciousness is awake, alert, obeys commands, Oriented to person, place, time, situation, Appropriate for age. Cardiovascular: Capillary refill < 3 seconds Patient's skin is warm and dry. Respiratory: Airway is patent Respiratory effort is even, unlabored, Respiratory pattern is regular, symmetrical. GI: Abdomen is round non-distended. : No signs and/or symptoms were reported regarding the genitourinary system. Derm: No signs and/or symptoms reported regarding the dermatologic system. Musculoskeletal: Reports pain in low back area. MULE SPINNER: 23:13 LMP N/A - control method ld1 Historical: - Allergies: 23:13 Demerol; ld1 23:13 Doxycycline; ld1 23:13 Haldol; ld1 23:13 Reglan; ld1 23:13 Toradol; ld1 23:13 Zithromax; ld1 - Home Meds: 23:13 Cymbalta Oral [Active]; Flexeril Oral [Active]; gabapentin Oral [Active]; tramadol 100 ld1 mg Oral BP25 1 cap once daily [Active]; methocarbamol 750 mg Oral tab 1 tab every 4 hours [Active]; - PMHx: 23:13 Asthma; Endometrosis; Kidney stones; polycystic ovarian disease; sudotumor ceribri; ld1 - PSHx: 23:13 Cholecystectomy; Kidney stent placed and removed; L5\T\6 discectomy; Multiple I\T\D's from ld 1 abcesses; Right fallopen tube removed from torson; seroma removed from back; - Immunization history:: Adult Immunizations up to date, Client reports receiving the 2nd dose of the Covid vaccine. - Social history:: Smoking status: Patient reports the use of cigarette tobacco products, smokes one-half pack cigarettes per day, Patient/guardian denies using alcohol, street drugs. Screenin:25 Abuse screen: Denies threats or abuse. Nutritional screening: No deficits noted. cc4 Tuberculosis screening: No symptoms or risk factors identified. Fall Risk None identified. Assessment: 23:25 General: Appears distressed, uncomfortable, Behavior is cooperative, anxious. Pain: cc4 Complains of pain in low back area Pain does not radiate. Pain currently is 8 out of 10 on a pain scale. at worst was 10 out of 10 on a pain scale. level that patient reports is acceptable is 0 out of 10 on a pain scale. Quality of pain is described as burning, Pain began 2-3 days ago. Neuro: No deficits noted. Level of Consciousness is awake, alert, obeys commands, Oriented to person, place, time, situation. Cardiovascular: No deficits noted. Heart tones S1 S2. Respiratory: No deficits noted. Airway is patent Respiratory effort is even, unlabored, Respiratory pattern is regular, symmetrical. GI: No deficits noted. Abdomen is obese, Bowel sounds present X 4 quads. : No signs and/or symptoms were reported regarding the genitourinary system. EENT: No deficits noted. Eyes clear. Nares are clear Oral mucosa is moist. Derm: No deficits noted. Skin is intact, is healthy with good turgor. Musculoskeletal: No deficits noted. Capillary refill < 3 seconds, Range of motion: intact in all extremities. 23:30 Reassessment: Urine specimen obtained with dipstick, HCG \T\ UDS sent to lab. cc4 23:50 Reassessment: # 22 g diffusics inserted right inner FA x 2 attempts, lenka. well; blood cc4 drawn \T\ sent to lab. 02/02 01:00 Reassessment: Patient appears in no apparent distress at this time. Reports low back cc4 pain (burning) decreased to 6/10 on pain scale; requesting Dilaudid for pain with Dr. Escobar notified. 01:10 Reassessment: Patient appears in no apparent distress at this time. Dilaudid 1 mg given cc4 slow IVP as ordered for c/o low back pain. 01:35 Reassessment: Patient appears in no apparent distress at this time. Requesting to cc4 leave; Dr. Escobar notified with pt signing AMA form; IV removed right inner FA with no bleeding noted of site \T\ catheter intact. Vital Signs: 02/01 23:12 BP 147 / 90; Pulse 141; Resp 26; Temp 98.2(O); Pulse Ox 100% on R/A; Weight 117.93 kg; ld1 Height 5 ft. 2 in. (157.48 cm); Pain 8/10; 23:12 Body Mass Index 47.55 (117.93 kg, 157.48 cm) ld1 ED Course: 23:07 Patient arrived in ED. cf2 23:13 Triage completed. ld1 23:13 Arm band placed on left wrist. ld1 23:23 Valarie Lang, CIARRA is Primary Nurse. cc4 23:25 Patient has correct armband on for positive identification. Call light in reach. cc4 23:30 Oscar Escobar MD is Attending Physician. mh7 23:50 UDS Sent. cc4 23:54 Inserted saline lock: 22 gauge in right forearm, using aseptic technique. ds4 02/02 00:22 Basic Metabolic Panel Sent. cc4 00:22 CBC with Diff Sent. cc4 00:22 Hepatic Function Sent. cc4 00:23 Lipase Sent. cc4 01:35 No provider procedures requiring assistance completed. cc4 01:35 IV discontinued, intact, bleeding controlled, No redness/swelling at site. Pressure cc4 dressing applied. Administered Medications: 01:54 Discontinued: NS 0.9% 1000 ml IV at 1000 ml once cc4 00:15 Drug: NS 0.9% 1000 ml Route: IV; Rate: 1000 ml; Site: right antecubital; cc4 00:15 Drug: morphine 4 mg Route: IVP; Site: right antecubital; cc4 00:15 Drug: Zofran (Ondansetron) 4 mg Route: IVP; Site: right forearm; cc4 01:00 Follow up: Response: No adverse reaction; Pain is decreased cc4 01:35 Follow up: Response: No adverse reaction; Pain is decreased cc4 01:10 Drug: Dilaudid (HYDROmorphone) 1 mg Route: IVP; Site: right forearm; cc4 01:35 Follow up: Response: No adverse reaction; Pain is decreased cc4 Outcome: 01:35 Discharged to home ambulatory. cc4 01:35 AMA AMA form signed 01:35 Condition: stable 01:35 Instructed on Not driving due to pain medications with v/u. 02:02 Patient left the ED. cc4 Signatures: Bernardino Marx ds4 Rah Graham cf2 Oscar Escobar MD MD 7 Paz Agudelo RN RN ld1 Valarie Lang RN RN cc4 Corrections: (The following items were deleted from the chart) 01:42 00:22 To radiology for Abdomen Pelvis W [email or web address]. cc4 EDMS
[2021-02-02 02:18] VITALS: BP 147/90; TEMP 98.2; O2SAT 100
== END 2021-02-02 02:02 | disposition left against medical advice (07) ==
LOC: ER 23:06
DX: M54.50 Low back pain, unspecified (principal); F17.210 Nicotine dependence, cigarettes, uncomplicated; Z88.1 Allergy status to other antibiotic agents; Z88.5 Allergy status to narcotic agent; Z88.8 Allergy status to other drugs, medicaments and biological substances
CPT/HCPCS: 85025; 80048; 36415; 81025; 80076; 83605; 81003; 83690; 80307; 99283; J1170; J7030; J2405

== ENCOUNTER 2021-02-03 14:09 | Emergency (ER) | payer OTHER ==
--- OUTSIDE RECORDS SUMMARY | 2021-02-03 14:16 | XMS REPORT | Continuity of Care Document ---
:1995 Author Organization [facility] t Address [address] [place] [address] Care Team Providers Name Role Phone Provider [...] Number Effective Date Expiration Date Shelia soto [facility] [id number] 2017 00:00:00 MEDICAID OF [place] [id number] 2018 00:00:00 Problems Condition Condition Condition Status Onset Resolution Last Treating Co mments Source Name Details Category Date Date Treatment Clinician Date Preeclamps Preeclamps Disease Active 2016- U nivers ia ia 2-04 ity of 00:00: [place] 00 Medical Branch Preeclamps Preeclamps Disease Active 2016- U nivers ia, third ia, third 2-03 ity of [facility] Acute Acute Disease Active 2015- Univers headache headache 2- ity of 00:00: [place] 00 Medical Branch Papilledem Papilledem Disease Active 2016- U nivers a a 2- ity of 00:00: [place] 00 Medical [place] 36 weeks 36 weeks Disease Active 2015- Unive rs gestation gestation 1-29 ity of of of 00:00: [place] [address] [facility] 26 weeks 26 weeks Disease Active 2016- Unive rs gestation gestation 9-20 ity of of of 00:00: [place] [address] [facility] Hematuria Hematuria Disease Active 2016- Uni vers 9-20 ity of 00:00: [place] 00 Medical [place] Lower Lower Disease Active 2016-0 Univers abdominal abdominal 9-20 ity of pain pain 00:00: [place] 00 Medical Branch Nausea and Nausea and Disease Active 2016-0 U nivers vomiting vomiting 9-06 ity of during during 00:00: [place] [address] [facility] Diarrhea Diarrhea Disease Active 2016-0 Unive rs 9-06 ity of 00:00: [place] 00 Medical Branch Dehydratio Dehydratio Disease Active 2016-0 U nivers n n 9- ity of 00:00: [place] 00 Medical Branch Pseudotumo Pseudotumo Disease Active 2016-0 U nivers r cerebri r cerebri 9-06 ity of 00:00: [place] 00 Medical [place] 24 weeks 24 weeks Disease Active 2016-0 Unive rs gestation gestation 9-06 ity of of of 00:00: [place] [address] [facility] Epigastric Epigastric Disease Active 2016-0 U nivers abdominal abdominal 9-06 ity of pain pain 00:00: Medical Branch Gastroente Gastroente Disease Active U nivers ritis ritis 9-06 ity of 00:00: Medical Branch Headache Headache Disease Active Unive rs 8-20 ity of 00:00: [place] [facility] Blurry Blurry Disease Active Univers vision, vision, 8-20 [place] bilateral bilateral [place] 21 weeks 21 weeks Disease Active Unive rs gestation gestation 8-20 ity of of of 00:00: [place] 00 [facility] Allergies, Adverse Reactions, Alerts Allergy Allergy Status Severity Reaction(s) Onset Inactive Treating Comm ents Source Name Type Date Date Clinician Unable DA Active U [facility] to 05-05 Assess 00:00: 00 doxycycl DA Active MO 2020-1 [facility] ine 03-16 [facility] 00:00: d 00 [facility] azithrom DA Active MO 2020-1 [facility] ycin 03-16 [facility] 00:00: d 00 Medical [place] doxycycl DA Active MO HIVES, RASH 2020-1 [facility] ine 03-16 [facility] 00:00: d 00 Medical Center azithrom DA Active MO HIVES, RASH 2020-1 [facility] ycin 03-16 [facility] 00:00: d 00 Medical Center metoclop DA Active U 2020-1 [facility] ramide 03-16 [facility] 00:00: d 00 Medical Center metoclop DA Active U MUSCLE SPASM 2020- HC A ramide 03-16 [facility] 00:00: d 00 Medical Center Ketorola Propensi Active Hives 2020-0 Method i c ty to 2-16 st adverse 00:00: Hospita reaction 00 l s to drug Azithrom Propensi Active Anaphylaxis 2020-0 M ethodi ycin ty to 2-16 st adverse 00:00: Hospita reaction 00 l s to drug Doxycycl Propensi Active GI 2020-0 Method i ine ty to Intolerance 2-16 st adverse 00:00: Hospita reaction 00 l s to drug KETOROLA DRUG Active Hives 2019- Univers C INGREDI 6-16 ity of 00:00: 00 Medical Branch Ketorola Propensi Active Hives Univer s c ty to 6-16 ity of adverse 00:00: [place] reaction 00 [facility] doxycycl DA Active SV 2016-0 [facility]CA ine 2-09 Clear 00:00: Ng 00 [facility] doxycycl DA Active SV THROAT HCA ine CLOSES 2-09 Clear 00:00: Ng 00 [facility] Doxycycl Drug Active Shortness Of [address] [facility]e Allergy Breath 1-17 [facility] 00:[facility]: Medical 00 [place] Azithrom Drug Active Shortness Of [facility] I [facility] ycin Allergy Breath 17 [facility] - 00:[facility]: Medical 00 [place] IODINE DRUG Active Swelling 2015-03 Univers INGREDI 2- ity of 00:00: [place] 00 Medical Branch Iodine Propensi Active Swelling 2015-03 Univer s ty to 2 ity of adverse 00:00: [place] reaction 00 [facility] DOXYCYCL DRUG Active Anxiety 2014-03 Univers INE INGREDI 2- ity of 00:00: [place] 00 [facility] AZITHROM DRUG Active Swelling 2014-03 Univer s YCIN INGREDI 2- ity of 00:00: [place] 00 Medical Branch Doxycycl Propensi Active Anxiety 2014-03 Unive rs ine ty to 2- ity of adverse 00:00: [place] reaction 00 [facility] Azithrom Propensi Active Swelling 2014-03 Univ ers ycin ty to 2-23 ity of adverse 00:00: [place] reaction 00 [facility] azithrom DA Active SV 2012-0 HCA ycin 5-09 Clear 00:00: Ng 00 [facility] azithrom DA Active SV SWELLS HCA ycin 5-09 Clear 00:00: Ng 00 [facility] Social History Social Habit Start Date Stop Date Quantity Comments Source Exposure to Not sure [facility] SARS-CoV-2 (event) [facility] History of tobacco Cigarette Smoker [facility] History SDOH [facility] al History SDOH [facility] Tobacco use and 2020-10-21 2020-10-21 Never used [facility] exposure 00:00:00 00:00:00 Hospital History SDOH 2020-10-21 2020-10-21 1 [facility] Alcohol Frequency 00:00:00 00:00:00 Hospita l Alcohol intake 2020-04-27 2020-04-27 0 /d University of 00:00:00 00:00:00 [facility] Cigarettes smoked 2015-11-03 2015-11-03 Univers ity of current (pack per 00:00:00 00:00:00 ) - Reported Branch Cigarette 2015-11-03 2015-11-03 University of pack-years 00:00:00 00:00:00 [facility] Tobacco Comment 2015-11-03 2015-11-03 currently Universit y of 00:00:00 00:00:00 smoking [facility] Sex Assigned [birth year] Universit y of 00:00:00 00:00:00 [facility] Smoking Status Start Date Stop Date Source Former smoker 2020-10-21 00:00:00 2020-10-21 00:00:00 [facility] Current every day 2016-04-01 00:00:00 [facility] - Medical smoker Center Medications Ordered [...] 01/18/21 at 2215, STAT iohexol 2020-03- No [id number] 120mL 120 mL, Univers (OMNIPAQUE 03-21 Intravenou [...] dose, Thu Med ical tablet 08/29/20 at [facility] tablet 1115, NIKITA FENTanyl PF 2020- No 50ug 50 mcg, Un martin (SUBLIMAZE 08-2916 Slow IV ity o f (PF)) 15:45: 14:46 Push, [place] injection 00 :00 ONCE, 1 Medical 50 mcg dose, Thu [place] 08/29/20 at 1045, STAT FENTanyl PF 2020- No 50ug 50 mcg, Un martin (SUBLIMAZE 08-2916 Slow IV ity o f (PF)) 10:15: 09:14 Push, [place] injection 00 :00 ONCE, 1 Medical 50 mcg dose, [facility] 08/29/20 at 0515, Routine HYDROcodone 2020- No 1{tbl} 1 tablet, Univers -acetaminop 08-2916 Oral, ity of hen (NORCO 06:00: 05:06 ONCE, 1 [place] as 5) 5-325 mg 00 :00 dose, Thu Med ical tablet 08/29/20 at [facility] tablet 0100, NIKITA gadoteridol 2020- No [id number] .2mL/kg 24.4 mL Univers (PROHANCE-2 08-29 (0.2 [...] ONCE, 1 Medica l NaCl 0.9% dose, [facility] h (NS) 100 mL 08/28/20 at MINI-BAG [...] :00 ONCE, 1 Medical 50 mcg dose, [facility] Branch 08/28/20 at 1700, Routine ondansetron [...] 21:11 ONCE, 1 [place] 00 :00 dose, [facility] Medical 08/28/20 at Branch 1430, STAT [...] dose, Thu04/27/20 at 2100, NIKITA HYDROcodone Yes [id number] 1{tbl} Take 1 Univers -acetaminop 6-17 tablet by ity of hen (NORCO) 00:00: mouth [place] 10-325 mg 00 every 6 Medical tablet (six) Branch hours as needed for Pain (scale 7-10). HYDROcodone Yes [id number] 1{tbl} Take 1 Univers -acetaminop 6-17 tablet by ity of hen (NORCO) 00:00: mouth [place] 10-325 mg 00 every 6 Medical tablet (six) Branch hours as needed for Pain (scale 7-10). HYDROcodone Yes [id number] 1{tbl} Take 1 Univers -acetaminop 6-17 tablet by ity of hen (NORCO) 00:00: mouth [place] 10-325 mg 00 every 6 Medical tablet (six) Branch hours as needed for Pain (scale 7-10). HYDROcodone Yes [id number] 1{tbl} Take 1 Univers -acetaminop 6-17 tablet [...] acetaminoph 2017-0 Yes 1{tbl} Take 1 Un matrin en-codeine 2-05 tablet by ity of 300-30 [...] DE ORAL 1-17 mouth. [facility] - 21:52: [address] ACETAZOLAMI 0 Yes Take by [facility] DE ORAL 1-17 mouth. [facility] - 21:52: [address] Nitrofurant 2015-03 Yes 100mg Take 1 [...] Branch hours as needed for Alternate with [place] for pain scale 1-3. tamsulosin 2015-03 Yes [...] Branch hours as needed for Alternate with [place] for pain scale 1-3. tamsulosin 2015-03 Yes [...] Branch hours as needed for Alternate with [place] for pain scale 1-3. tamsulosin 2015-03 Yes [...] Branch hours as needed for Alternate with [place] for pain scale 1-3. tamsulosin 2015-03 Yes [...] by ity of (SURFAK) 00:00: mouth once Uastin as 240 mg 00 daily as Medical [...] 2021-01-19 03:10:00 120 /min Universi ty of [facility] Systolic blood 2021-01-19 03:00:00 134 mm[Hg] Univer sity of [facility] Diastolic blood 2021-01-19 03:00:00 90 mm[Hg] [facility] Respiratory rate 2021-01-19 03:00:00 20 /min Univ [...] /min University of Arterial blood by [place] [facility] nirmala Pulse oximetry Branch Body weight 2020-08-28 [...] /min University of Arterial blood by [place] [facility] nirmala Pulse oximetry Branch Body temperature 2020-04-28 [...] Branch Body height 2020-10-22 04:27:00 157.5 cm [facility] Body weight 2020-10-22 04:27:00 127.007 kg 280 [facility] BMI 2020-10-22 04:27:00 51.21 kg/m2 [facility] Systolic blood 2020-10-22 04:24:53 155 mm[Hg] [facility] pressure Diastolic blood 2020-10-22 04:24:53 78 mm[Hg] [facility] pressure Heart rate 2020-10-22 04:24:53 128 /min [facility] Body temperature 2020-10-22 04:24:53 36 Martina [facility] Respiratory rate 2020-10-22 04:24:53 20 /min [facility] Oxygen saturation in 2020-10-22 04:24:53 98 /min [facility] Arterial blood by Pulse oximetry 02 Sat by Pulse 2020-05-07 07:49:50 100 /min Oximetry Body Mass Index 2020-05-07 07:49:50 49.4 Height 2020-05-07 07:49:50 157.48\\S\\62 Pulse Rate 2020-05-07 07:49:50 87 /min Respiratory Rate 2020-05-07 07:49:50 18 /min Temperature 2020-05-07 07:49:50 37\\S\\98.6 Weight 2020-05-07 07:49:50 713280.939\\S\\4320 Respiratory 2020-05-07 07:49:50 No respiratory distress /min Respiratory 2020-05-05 23:26:04 No respiratory distress /min 02 Sat by Pulse 2020-05-05 23:26:04 100 /min Oximetry Body Mass Index 2020-05-05 23:26:04 49.4 Height 2020-05-05 23:26:04 157.48\\S\\62 Pulse Rate 2020-05-05 23:26:04 87 /min Respiratory Rate 2020-05-05 23:26:04 18 /min Temperature 2020-05-05 23:26:04 37\\S\\98.6 Weight 2020-05-05 23:26:04 360435.939\\S\\4320 Respiratory 2020-05-05 16:38:31 No respiratory distress /min 02 Sat by Pulse 2020-05-05 16:38:31 100 /min Oximetry Body Mass Index 2020-05-05 16:38:31 49.4 Height 2020-05-05 16:38:31 157.48\\S\\62 Pulse Rate 2020-05-05 16:38:31 152 /min Respiratory Rate 2020-05-05 16:38:31 20 /min Temperature 2020-05-05 16:38:31 37.2\\S\\99.0 Weight 2020-05-05 16:38:31 580326.939\\S\\4320 Respiratory 2020-05-05 14:24:00 No respiratory distress /min 02 Sat by Pulse 2020-05-05 14:24:00 100 /min Oximetry Body Mass Index 2020-05-05 14:24:00 49.4 Height 2020-05-05 14:24:00 157.48\\S\\62 Pulse Rate 2020-05-05 14:24:00 152 /min Respiratory Rate 2020-05-05 14:24:00 20 /min Temperature 2020-05-05 14:24:00 37.2\\S\\99.0 Weight 2020-05-05 14:24:00 436802.939\\S\\4320 02 Sat by Pulse 2020-05-05 13:30:25 100 /min Oximetry Body Mass Index 2020-05-05 13:30:25 49.4 Height 2020-05-05 13:30:25 157.48\\S\\62 Pulse Rate 2020-05-05 13:30:25 152 /min Respiratory Rate 2020-05-05 13:30:25 20 /min Temperature 2020-05-05 13:30:25 37.2\\S\\99.0 Weight 2020-05-05 13:30:25 003364.939\\S\\4320 02 Sat by Pulse 2020-05-05 13:17:41 100 /min Oximetry Body Mass Index 2020-05-05 13:17:41 49.4 Height 2020-05-05 13:17:41 157.48\\S\\62 Pulse Rate 2020-05-05 13:17:41 152 /min Respiratory Rate 2020-05-05 13:17:41 20 /min Temperature 2020-05-05 13:17:41 37.2\\S\\99.0 Weight 2020-05-05 13:17:41 118514.939\\S\\4320 02 Sat by Pulse 2020-05-05 13:15:39 100 /min Oximetry Body Mass Index 2020-05-05 13:15:39 49.4 Height 2020-05-05 13:15:39 157.48\\S\\62 Pulse Rate 2020-05-05 13:15:39 152 /min Respiratory Rate 2020-05-05 13:15:39 20 /min Temperature 2020-05-05 13:15:39 37.2\\S\\99.0 Weight 2020-05-05 13:15:39 457626.939\\S\\4320 WEIGHT 2020-05-05 13:11:00 122.243456 kg HEIGHT 2020-05-05 13:11:00 157.48 cm Procedures Procedure Date / Time Performing Clinician Source Performed CT ABDOMEN PELVIS W 2021-01-19 02:26:01 Wan Pacheco [facility] CONTRAST [facility] POCT TEST 2021-01-19 01:41:00 [facility] COMP. METABOLIC PANEL 2021-01-19 01:40:00 Pacheco, [facility] ([id number]) [facility] CBC WITH DIFF 2021-01-19 01:40:00 [facility] URINALYSIS 2021-01-19 01:40:00 [facility] CONSENT/REFUSAL FOR 2021-01-19 01:18:32 Doctor Unassigned, No Un [facility] DIAGNOSIS AND TREATMENT Name Medical Branch HC COMPLETE BLD COUNT 2020-10-22 05:09:00 David Phelan [facility] W/AUTO DIFF URINALYSIS 2020-10-22 05:09:00 David Phelan spital COMPREHENSIVE METABOLIC 2020-10-22 05:09:00 David Phelan [facility] PANEL LACTIC ACID, I-STAT 2020-10-22 05:09:00 [facility]AL[facility], URINE 2020-10-22 05:09:00 David Phelan [facility] SCREEN ESTIMATED GFR 2020-10-22 05:09:00 David Phelan neels[place] MR LUMBAR SPINE W WO 2020-08-29 04:41:29 Leah Doty [facility] CONTRAST [facility] POCT TEST 2020-08-29 04:39:00 Debbi Page [facility] CBC WITH DIFF 2020-08-29 03:06:00 Camilo [facility] LACTIC ACID WHOLE BLOOD 2020-08-29 03:06[facility]EL 2020-08-29 02:50:00 [facility] ([id number]) [facility] URINALYSIS 2020-08-29 02:50:00 Camilo [facility] COVID-19 (ID NOW RAPID 2020-08-28 23:34:00 Leah Doty [facility] TESTING) [facility] CONSENT/REFUSAL FOR 2020-08-28 18:48:13 Doctor [facility]igned, [facility] Name [facility] ADC / LCC - DRUG SCREEN 2020-04-28 03:58:00 Mary Bran [facility] TRIAGE [facility] BASIC METABOLIC PANEL 2020-04-28 03:03:00 Mary Bran [facility] (NA, K, CL, CO2, Medical Branch GLUCOSE, BUN, CREATININE, CA) CBC WITH DIFF 2020-04-28 03:03:00 Mary Bran [facility] URINALYSIS 2020-04-28 02:41:00 Mary Bran [facility] POCT TEST 2020-04-28 02:40:00 Mary Bran [facility] NOTICE OF PRIVACY 2020-04-28 02:22:34 Doctor Unassigned, No Univ [facility] PRACTICES Name [facility] CONSENT/REFUSAL FOR 2020-04-28 02:22:21 Doctor Unassigned, No [facility]ATMENT Name Medical Branch Plan of Care Planned Activity Planned Date Details Comments Source Future Scheduled Test COVID-19 VACCINE (1) [facility] [code = COVID-19 VACCINE (1)] Future Scheduled Test Hepatitis C screening [facility] (procedure) [code = 179094458] Future Scheduled Test Screening for [facility] malignant neoplasm of cervix (procedure) [code = 591995610] Future Scheduled Test INFLUENZA VACCINE [facility] [code = INFLUENZA VACCINE] Encounters Start End Encounter Admission Attending Care Care Encounter Source Date/Time Date/Time Type Type Clinicians Facility Department ID 2020-04-24 Inpatient HCAKW ZEE [id number] [facility] 23:08:[id number] [facility] 2020-01-18 Inpatient HCAPM ZEE [id number] [facility] 19:15:00 [id number] [facility] 2020-01-15 Inpatient HCAKW ZEE [id number] [facility] 14:21:[id number] [facility] 2020-01-14 Inpatient HCAKW ZEE [id number] [facility] 22:47:[id number] [facility] 2020-01-13 Inpatient HCAKW ZEE [id number] [facility] 17:51:[id number] [facility] 2021-01-18 2021-01-18 Emergency X SINGER [facility] ERT [id number] Univers 20:26:00 22:38:00 WAN paz [facility] 2021-01-18 2021-01-18 Emergency Singer [facility] [id number] Univers 20:26:00 22:38:00 Wan MENDOZA 350.1.13.10 i [facility] 4.2.7.2.686 [facility] [id number] [place] [address] Branch 2021-01-17 2021-01-17 Emergency ER Dickson STGONZALEZG STLSJG [id number] 17:05:00 17:05:00 Dennis -[id number] [facility] 2021-01-08 2021-01-08 Emergency ER BERNADETTE KayX STLSJX [id number] STLSJX 12:37:00 12:37:00 Oli -[id number] 2020-11-25 2020-11-25 Emergency SEBASTIAN, [facility] [id number] [place] 00:00:00 00:00:00 [address]OLO [address] 2020-10-22 2020-10-22 Travel 1.2.840.1 [id number] Methodi 00:00:00 00:00:[address] 3.430.2.7 0.2.7.3.698 Ho spita .3.596319 084.8 l .8 2020-10-21 2020-10-22 Emergency NUSZEN, [facility] [id number] [place] 00:00:00 00:00:00 DAVID Loera [facility] 2020-08-28 2020-08-29 Emergency Aufderheyou, Leah Topete TRAUMA 1.2.840.114 [id number] Univers 13:50:00 10:43:00 [facility] [id number] ity of Darron Jules 4.2.7.2.686 [place] [id number] [facility] 014 Branch 2020-08-28 2020-08-29 Emergency AuwilliamerLeah richard TRAUMA 1.2.840.114 [id number] 13:50:00 10:43:00 [facility] 350.1.13.10 Darron Jules W 4.2.7.2.68 [id number] 014 2020-08-28 2020-08-28 Emergency X [facility] ERT [id number] Univers 13:42:00 13:42:00 ity of [facility] 2020-04-27 2020-04-27 Emergency [facility], [facility] 1.2.840.114 [id number] Univers 20:41:00 23:12:00 Mary Mendoza 350.1.13.10 i ty of [place] 4.2.7.2.686 [facility] [id number] [facility] 084 Branch 2020-04-27 2020-04-27 Emergency Bran, [facility] 1.2.840.114 [id number] 20:41:00 23:12:00 Mary Mendoza 350.1.13.10 [place] 4.2.7.2.686 [place] [id number] 2020-04-27 2020-04-27 Emergency X [facility] ERT [id number] Univers 20:23:00 20:23:00 ity of [facility] 2020-04-27 2020-04-27 Orders Doctor COLE 1.2.840.114 [id number] [facility] 00:00:00 00:00:00 Only Unassigned, KEVYN [id number] ity of Kenel [facility] 4.2.7.2.686 [facility] as [id number] [address] 2020-04-27 2020-04-27 Orders Doctor COLE 1.2.840.114 [id number] 00:00:00 00:00:00 Only Unassigned, KEVYN 350.1.13.10 [place] [facility] 4.2.7.2.686 [id number] 009 2020-01-18 2020-01-18 Outpatient Uriah, LUCÍA LABO Q833 - [facility] 22:41:00 22:41:00 Anita [address] [facility] 2020-01-15 2020-01-17 Inpatient EM Jaime [facility] Q833 [id number] [facility] 17:01:00 12:13:00 [id number] [facility] Results Test Description Test Time Test Comments Results Result Comments Source COMP. METABOLIC PANEL (30122) 2021-01-19 01:59:14 Test Item Value Reference Range Interpretation Comme nts NA (test code = 7163706080) 140 mmol/L 135-145 K (test code = 6901575940) 4.4 mmol/L 3.5-5.0 CL (test code = 9378106563) 106 mmol/L 98-108 CO2 TOTAL (test code = 23 mmol/L 23-31 0558077949) AGAP (test code = 0991303660) 2-16 BUN (test code = 9961568483) 9 mg/dL 7-23 GLUCOSE (test code = 5516398527) 94 mg/dL 70-110 CREATININE (test code = 0.62 mg/dL 0.50-1.04 2152502280) TOTAL BILI (test code = 0.3 mg/dL 0.1-1.7 7971678531) CALCIUM (test code = 7610365178) 9.8 mg/dL 8.6-10.6 T PROTEIN (test code = 7.8 g/dL 6.3-8.2 8512263793) ALBUMIN (test code = 1236437952) 4.6 g/dL 3.5-5.0 ALK PHOS (test code = 4119590338) 97 U/L 34-122 ALTv (test code = 1742-6) 19 U/L 5-35 AST(SGOT) (test code = 26 U/L 13-40 8762752785) eGFR (test code = 1971803520) mL/min/1.73m2 AURORA (test code = AURORA) Association [...] or urine or abnormalities in imaging tests). [facility] WITH [id number] 01:47:12 Test Item Value Reference Range Interpretation [...] (test code = 51.5 fL 39.0-49.9 H 91370-2) RDW-CV (test code = 17.4 % 12.0-15.5 H 788-0) PLT (test code = See_Comment H [Automated 777-3) message] The sy stem which generated this result transmitted reference range : 166 - 358 10*3/ ?L. The reference r edson was not used to interpret this result as normal/abnormal . MPV (test code = 9.3 fL 9.5-12.9 L 58408-8) NRBC/100 WBC (test See_Comment [Automat ed code = 8023570499) message] The system which generated this result transmitted reference range : 0.0 - 10.0 /100 WBCs. The refer ence range was not u sed to interpret th is result as normal/abnormal . NRBC x10^3 (test code <0.01 See_Comment [Auto mated = 9249831684) message] The s ystem which generated this result transmitted reference range : 10*3/?L. The reference range was not used to interpret this result as normal/abnormal . GRAN MAT (NEUT) % 59.5 % (test code = 770-8) IMM GRAN % (test code 0.30 % = 2479348765) LYMPH % (test code = 30.7 % 736-9) MONO % (test code = 5.7 % 5905-5) EOS % (test code = 3.3 % 713-8) BASO % (test code = 0.5 % 706-2) GRAN MAT x10^3(ANC) 5.88 10*3/uL 1.88-7.09 (test code = 4700004265) IMM GRAN x10^3 (test 0.03 10*3/uL 0.00-0.06 code = 8655345422) LYMPH x10^3 (test code 3.03 10*3/uL 1.32-3.29 = 731-0) MONO x10^3 (test code 0.56 10*3/uL 0.33-0.92 = 742-7) EOS x10^3 (test code = 0.33 10*3/uL 0.03-0.39 711-2) BASO x10^3 (test code 0.05 10*3/uL 0.01-0.07 = 704-7) Lab Interpretation Abnormal (test code = 42436-0) [id number]00 Test Item Value Reference Range Interpretation Comments POCT PREG (test code = 1605) neg On board controls acceptable with yes C Line (test code = 3574) POCT PREG LOT # (test code = 3575) [id number] POCT PREG TEST DATE (test 03/15/2022 code = 3576) Lab Interpretation (test code = Normal 26673-8) [facility] 18:14:00 Test Item Value Reference Range Interpretation [...] 7.8-10.44 N code = CA) Chemistry - [id number] 18:04:00 Test Item Value Reference Range Interpretation Comments Chemistry - Specials Negative NEGATIVE Method of sensitivity- (test code = BHCGST) Indete rminant: results should be repeated after 48-72 hrs Positive: results may be detected as ear ly as 1 day after the first missed menses. Aaouoammgn9812-64-79 17:55:00 Test Item Value Reference Range Interpretation [...] code = BASO#) 0.1 thou/uL 0.0-0.2 N Wbudbarqam3603-23-17 17:55:00 Test Item Value Reference Range Interpretation [...] Source: Urine VoidedMR LUMBAR SPINE W WO [id number] 13:40:15 Prior right L5-S1 laminectomy and apparent [...] ofthe cauda equina demonstrateenhancement, likely postoperative.RL: [id number] 04:39:00 Test Item Value Reference Range Interpretation Comments POCT PREG (test code = 1605) negative On board controls acceptable with present C Line (test code = 3574) POCT PREG LOT # (test code = 3575) [id number] POCT PREG TEST DATE (test 02-12-22 code = 3576) Lab Interpretation (test code = Normal 97558-2) [facility]07 Test Item Value Reference Range Interpretation Comments APPEARANCE (test code = Clear Clear 0668805511) COLOR (test code = Yellow Yellow 8814059991) PH (test code = 4.8-8.0 6824832152) SP GRAVITY (test code = 1.003-1.030 5207029685) GLU U QUAL (test code = Normal Normal 7961577598) BLOOD (test code = Negative Negative Interfere nce from 4179829669) ascorbic acid m ay cause false neg ative results. KETONES (test code = Negative Negative 9565141798) PROTEIN (test code = Negative Negative 2887-8) UROBILIN (test code = Normal Normal 1208602820) BILIRUBIN (test code = Negative Negative 2743464318) NITRITE (test code = Negative Negative 2777815844) LEUK GAETANO (test code = Negative Negative 1626438051) RBC/HPF (test code = See_Comment [Autom ated message] 8471253144) The system Huixiaoer generated this result transmitted ref erence range: 0 - 3 HP F. The reference range was not used to int erpret this result as normal/abnormal . WBC/HPF (test code = See_Comment [Autom ated message] 2899598689) The system Huixiaoer generated this result transmitted ref erence range: 0 - 5 HP F. The reference range was not used to int erpret this result as normal/abnormal . BACTERIA (test code = Negative Negative 3949768167) MUCOUS (test code = Slight Negative LPF A 2939811611) SQ EPITH (test code = See_Comment H [Auto mated message] 1318338016) The system Huixiaoer generated this result transmitted ref erence range: <=2 HPF. The reference range was not used to int erpret this result as normal/abnormal . ASCORBIC ACID (test code 20 mg/dL = 0240122425) Lab Interpretation (test Abnormal code = 71952-4) [facility] (13601)2020-08-29 03:19:20 Test Item Value Reference Range Interpretation Comments NA (test code = 139 mmol/L 135-145 3815890724) K (test code = 3.8 mmol/L 3.5-5.0 7793113087) CL (test code = 110 mmol/L 98-108 H 4441277956) CO2 TOTAL (test code = 18 mmol/L 23-31 L 6101806301) AGAP (test code = 2-16 1923674781) BUN (test code = 10 mg/dL 7-23 2669496056) GLUCOSE (test code = 95 mg/dL 70-110 4440489821) CREATININE (test code = 0.60 mg/dL 0.50-1.04 8472624704) TOTAL BILI (test code = 0.3 mg/dL 0.1-1.5 3579624831) CALCIUM (test code = 9.0 mg/dL 8.6-10.6 0679115037) T PROTEIN (test code = 7.0 g/dL 6.3-8.2 5535993757) ALBUMIN (test code = 4.2 g/dL 3.5-5.0 1893550225) ALK PHOS (test code = 67 U/L 34-122 0811233581) ALTv (test code = 24 U/L 5-35 1742-6) AST(SGOT) (test code = 30 U/L 13-40 2152785410) eGFR (test code = mL/min/1.73m2 7138775488) AURORA (test code = AURORA) Association of [...] tests). Lab Interpretation Abnormal (test code = 05774-2) [facility] [id number] 03:19:05 Test Item Value Reference Range Interpretation Comments LACTIC ACID (test code = 1.35 mmol/L 0.50-2.20 9724746234) Lab Interpretation (test code = Normal 34519-6) [facility] WITH [id number] 03:17:59 Test Item Value Reference Range Interpretation [...] (test code = 53.7 fL 39.0-49.9 H 12279-6) RDW-CV (test code = 17.3 % 12.0-15.5 H 788-0) PLT (test code = See_Comment H [Automated 777-3) message] The sy stem which generated this result transmitted reference range : 166 - 358 10*3/ ?L. The reference r edson was not used to interpret this result as normal/abnormal . MPV (test code = 9.3 fL 9.5-12.9 L 75124-8) NRBC/100 WBC (test See_Comment [Automat ed code = 7863323876) message] The system which generated this result transmitted reference range : 0.0 - 10.0 /100 WBCs. The refer ence range was not u sed to interpret th is result as normal/abnormal . NRBC x10^3 (test code <0.01 See_Comment [Auto mated = 2071672579) message] The s ystem which generated this result transmitted reference range : 10*3/?L. The reference range was not used to interpret this result as normal/abnormal . GRAN MAT (NEUT) % 58.1 % (test code = 770-8) IMM GRAN % (test code 0.20 % = 8413884496) LYMPH % (test code = 29.0 % 736-9) MONO % (test code = 8.3 % 5905-5) EOS % (test code = 4.0 % 713-8) BASO % (test code = 0.4 % 706-2) GRAN MAT x10^3(ANC) 5.40 10*3/uL 1.88-7.09 (test code = 9665763147) IMM GRAN x10^3 (test <0.03 0.00-0.06 code = 3769796688) LYMPH x10^3 (test code 2.69 10*3/uL 1.32-3.29 = 731-0) MONO x10^3 (test code 0.77 10*3/uL 0.33-0.92 = 742-7) EOS x10^3 (test code = 0.37 10*3/uL 0.03-0.39 711-2) BASO x10^3 (test code 0.04 10*3/uL 0.01-0.07 = 704-7) Lab Interpretation Abnormal (test code = 50621-1) [facility] NOW RAPID TESTING)2020-08-29 00:07:14 Test Item Value Reference Range Interpretation Comments SARS-CoV-2 Rapid ID NOW Not Detected Not Detected (test code = 60341-3) AURORA (test code = AURORA) ID NOW COVID-19 Assay is an isothermal nucleic acid amplification test intended for the qualitative detection of nucleic acid from SARS-CoV-2 viral RNA in nasopharyngeal (COLLECTIONS ASSISTANT) specimens. It is used under Emergency Use [...] indicated. Lab Interpretation Normal (test code = 97188-7) [facility] / [facility] - DRUG SCREEN [id number] 04:20:00 Test Item Value Reference Range Interpretation Comments BENZO U (test code = Negative Negative 2599315432) DIVYA U (test code = Negative Negative 8362181574) AMPHET (test code = Negative Negative 2497995785) THC (test code = Negative Negative 8353935091) METHADONE (test code = Negative Negative 5869885583) Meth U (test code = Negative Negative 9076929935) OPIATES (test code = Presumptive Positive Negative A 1698341349) Cocaine Metabolite (test Negative Negative code = 8688897436) PROPOXY (test code = Negative Negative 5647763448) Tric U (test code = Negative Negative 7337492402) PCP (test code = Negative Negative 0893355295) OXYCOD (test code = Negative Negative 8482965552) AURORA (test code = AURORA) Urine Drug [...] testing). Lab Interpretation (test Abnormal code = 76593-7) [facility] (NA, K, CL, CO2, GLUCOSE, BUN, CREATININE, CA)2020-04-28 03:22:00 Test Item Value Reference Range Interpretation Comments NA (test code = 139 mmol/L 135-145 3098032082) K (test code = 4.4 mmol/L 3.5-5 8122985966) CL (test code = 105 mmol/L 98-108 6354646345) CO2 TOTAL (test code = 25 mmol/L 23-31 2330583835) AGAP (test code = 2-16 8543433403) BUN (test code = 11 mg/dL 7-23 3515442094) GLUCOSE (test code = 92 mg/dL 70-110 0023122783) CREATININE (test code 0.65 mg/dL 0.5-1.04 = 0698415728) CALCIUM (test code = 9.5 mg/dL 8.6-10.6 5849424481) eGFR Calculation mL/min/1.73m2 (Non-) (test code = 8367139186) eGFR Calculation mL/min/1.73m2 () (test code = 4045126333) AURORA (test code = AURORA) Association of [...] or urine or abnormalities in imaging tests). [facility] 03:17:00 Test Item Value Reference Range Interpretation Comments APPEARANCE (test code = Cloudy Clear A 6922827178) COLOR (test code = Yellow Yellow 6781013989) PH (test code = 4.8-8.0 4339211345) SP GRAVITY (test code = 1.003-1.030 6313508953) GLU U QUAL (test code = Normal Normal 4465215080) BLOOD (test code = Negative Negative 5576153515) KETONES (test code = Negative Negative 0061766762) PROTEIN (test code = Negative Negative 2887-8) UROBILIN (test code = Normal Normal 5116313037) BILIRUBIN (test code = Negative Negative 1452511415) NITRITE (test code = Negative Negative 1423886025) LEUK GAETANO (test code = Negative Negative 9748450876) RBC/HPF (test code = <1 See_Comment [Autom ated message] 8304553424) The system Huixiaoer generated this result transmitted ref erence range: 0 - 3 HP F. The reference range was not used to int erpret this result as normal/abnormal . WBC/HPF (test code = See_Comment [Autom ated message] 8340583260) The system Huixiaoer generated this result transmitted ref erence range: 0 - 5 HP F. The reference range was not used to int erpret this result as normal/abnormal . BACTERIA (test code = Many Negative A 7538543241) MUCOUS (test code = Slight Negative LPF A 9915229320) AMORPHOUS (test code = Moderate Rare HPF A 3799925063) SQ EPITH (test code = HPF 5591678610) WBC CLUMPS (test code = See_Comment H [Au tomated message] 8486341535) The system Huixiaoer generated this result transmitted ref erence range: <=1 HPF. The reference range was not used to int erpret this result as normal/abnormal . YEAST BUD (test code = See_Comment H [Aut omated message] 9861517677) The system Huixiaoer generated this result transmitted ref erence range: <=1 HPF. The reference range was not used to int erpret this result as normal/abnormal . Lab Interpretation (test Abnormal code = 25564-3) [facility] with Tgmnhgdpqxpv8733-58-44 03:11:00 Test Item Value Reference Range Interpretation [...] RDW-SD (test code = 47.8 fL 39-49.9 40211-6) RDW-CV (test code = 15.2 % 12-15.5 788-0) PLT (test code = See_Comment H [Automated 777-3) message] The sy stem which generated this result transmitted reference range : 166 - 358 10*3/ ?L. The reference r edson was not used to interpret this result as normal/abnormal . MPV (test code = 9.7 fL 9.5-12.9 40934-7) NRBC/100 WBC (test See_Comment [Automat ed code = 4461528325) message] The system which generated this result transmitted reference range : 0.0 - 10.0 /100 WBCs. The refer ence range was not u sed to interpret th is result as normal/abnormal . NRBC x10^3 (test code <0.01 See_Comment [Auto mated = 0872111125) message] The s ystem which generated this result transmitted reference range : 10*3/?L. The reference range was not used to interpret this result as normal/abnormal . GRAN MAT (NEUT) % 70.3 % (test code = 770-8) IMM GRAN % (test code 0.50 % = 9199825148) LYMPH % (test code = 21.0 % 736-9) MONO % (test code = 5.2 % 5905-5) EOS % (test code = 2.4 % 713-8) BASO % (test code = 0.6 % 706-2) GRAN MAT x10^3(ANC) 7.03 10*3/uL 1.88-7.09 (test code = 8273833205) IMM GRAN x10^3 (test 0.05 10*3/uL 0-0.06 code = 5255487283) LYMPH x10^3 (test code 2.10 10*3/uL 1.32-3.29 = 731-0) MONO x10^3 (test code 0.52 10*3/uL 0.33-0.92 = 742-7) EOS x10^3 (test code = 0.24 10*3/uL 0.03-0.39 711-2) BASO x10^3 (test code 0.06 10*3/uL 0.01-0.07 = 704-7) Lab Interpretation Abnormal (test code = 63636-9) [facility] [id number] 02:40:00 Test Item Value Reference Range Interpretation Comments POCT PREG (test code = 1605) Negative On board controls acceptable with Present C Line (test code = 3574) POCT PREG LOT # (test code = HCG [id number]) POCT PREG TEST DATE (test 12/13/2021 code = 3576) Lab Interpretation (test code = Normal 86274-1) [facility] HospitalLAHIIC [id number] 02:52:00 Test Item Value Reference Range Interpretation Comments LACTIC ACID (test code = LACT) 1.0 mmol/L 0.7-2.0 N COMPREHENSIVE METABOLIC [id number] 02:28:00 Test Item Value Reference Range Interpretation [...] = ALKP) UA RFLX MICR CULT IF [id number] 01:22:00 Test Item Value Reference Range Interpretation [...] URINE: CLEAN CATCHUA RFLX MICR CULT IF [id number] 01:19:00 Test Item Value Reference Range Interpretation [...] AURORA Love C.LAB.MG, on , @ 0052. [id number] 00:50:00 Test Item Value Reference Range Interpretation Comments LIPASE (test code = LIP) 54 U/L 23-300 N CBC W/AUTO [id number] 00:49:00 Test Item Value Reference Range Interpretation [...] x10 3/uL 0.0-0.1 N - US RETRO [id number] 00:16:00 [facility] 1995 Sex: F [place]: [address] St: REG Name: CRISTINONATIVIDAD BUSTAMANTE [facility] : 1995 Age/S: 24/F [address] Unit #: [id number] Loc: [place] [address] Phys: Luis Goddard NP Acct: [id number] Dis Date: Status: REG ER PHONE #: [phone] Exam Date: 04/24/2020 0005 FAX #: [phone] Reason: left flank pain EXAMS: CPT CODE: [id number] US RETRO LTD 18319 EXAM: - US RETRO LTD LOCATION: H57 [...] Leonel Delacruz MD CC: Technologist: Francine Jimenez RDKS RVT Trnscrd Date/Time/By: 04/25/2020 (0016) : By: carrie WASHINGTONMKW1 PAGE 1 Signed Report [place]: St: REG Name: NATIVIDAD GREGG [facility] : 1995 Age/S: 24/F [address] Unit #: [id number] Loc: [place] [address] Phys: Luis Goddard NP Acct: [id number] Dis Date: Status: REG ER PHONE #: [phone] Exam Date: 04/24/2020 0005 FAX #: [phone] Reason: left flank pain EXAMS: CPT CODE: [id number] US RETRO LTD 46505 <Continued> Orig Print D/T: S: 04/25/2020 (0019) PAGE 2 Signed ReportCOVID 19 INHOUSE [id number] 21:16:00 Test Item Value Reference Range Interpretation Comments COVID 19 INHOUSE AG NEGATIVE Negative Per manu facturer, (test code = negative result s should [id number]) be treated aspr esumptive and, if inconsi [...] nsistent with COVID-19. - XR CHEST 1 [id number] 20:44:00 [facility] 1995 Sex: F Name: NATIVIDAD GREGG [facility] : 1995 Age/S: 24 / F [address] Unit #: [id number] Loc: [place] [address] Phys: Anita Kruse MD Acct: [id number] Dis Date: Status: REG ER PHONE #: [phone] Exam Date: 01/18/20202023 FAX #: Reason: Code Sepsis EXAMS: CPT: [id number] XR CHEST 1 V 84908 Fluoro Time: DAP (Gy m2): Air Kerma [...] PAGE 1 Signed Report Name: NATIVIDAD GREGG [facility] : 1995 Age/S: 24 / F [address] Unit #: [id number] Loc: [place] [address] Phys: Anita Kruse MD Acct: [id number] Dis Date: Status: REG ER PHONE #: [phone] Exam Date: 01/18/20202023 FAX #: Reason: Code Sepsis EXAMS: CPT: [id number] XR CHEST 1 V 36805 Fluoro Time: DAP (Gy m2): Air Kerma (mGy): <Continued> Technologist: Brandi Clark RT(R)(CT) Trnscb Date/Time: 01/18/2020 (2043) tRBEERBasiaVR5 Orig Print D/T: S: 01/18/2020 (2047) PAGE 2 Signed ReportUA RFLX MICR CULT IF [id number] 20:17:00 Test Item Value Reference Range Interpretation [...] UACULT) Indication for culture: Suprapubic PainBASIC METABOLIC [id number] 20:13:00 Test Item Value Reference Range Interpretation [...] 8.5-10.1 N Completed by Nursing: NOHEPATIC FUNCTION [id number] 20:13:00 Test Item Value Reference Range Interpretation [...] N code = ALKP) Completed by Nursing: [id number] 20:13:00 Test Item Value Reference Range Interpretation [...] jesse yby method. Completed by Nursing: NOLACTIC [id number] 20:13:00 Test Item Value Reference Range Interpretation Comments LACTIC ACID (test code = LACT) 1.8 mmol/L 0.4-2.0 N CBC W/AUTO [id number] 19:57:00 Test Item Value Reference Range Interpretation [...] NO DIFF/SCN CRITERIA = MDIFF) BASIC METABOLIC [id number] 07:22:00 Test Item Value Reference Range Interpretation [...] 8.7 mg/dL 8.4-10.2 N CA) CBC W/AUTO [id number] 07:03:00 Test Item Value Reference Range Interpretation [...] 0.05 x10 3/uL 0.0-0.1 N BASIC METABOLIC [id number] 05:56:00 Test Item Value Reference Range Interpretation [...] 8.4 mg/dL 8.4-10.2 N CA) CBC W/AUTO [id number] 05:42:00 Test Item Value Reference Range Interpretation [...] *LDL Cholesterol<1 00mg/ dL: Desirable L DL-C rrzjmeguifols88 0-159 mg/dL: Borderli ne High Risk LDL-C sqlpvshtxzjky12 0-189 mg/dL: High ris k LDL-C concentra [...] AVG 11.04~~~~~~~~~~ ~~~~~~~ ~~~~~~~~~~~~~~~ ~~~~~~~ ~~~~~~~~~~~~~~~ ~~~~~~N [facility] Cholest shubham Education (PAEP ) Guidelines:~~~~ ~~~~~~~ ~~~~~~~~~~~~~~~ ~~~~~~~ ~~~~~~~~~~~~~~~ ~~~~~~~ ~~~~~ HDL Cholesterol<4 0mg/dL: HDL Cholesterol (Major risk factor for CHD)>60mg/dL: H DL Cholesterol (Ne gative risk factor for CHD)40-59mg/dL: Borderline Risk L DL Cholesterol<1 00mg/dL : Desirable LDL -C daaghhcpygkpy16 0-159mg /dL: Borderline High Risk LDL-C eviufqnbpjcvp90 0-189mg /dL: High risk LDL-C concentration H DL-LDL Cholesterol is affected by a n umber of factors such as smoking, age an d sex.~~~~~~~~~~~ ~~~~~~~ ~~~~~~~~~~~~~~~ ~~~~~~~ ~~~~~~~~~~~~~~~ ~~~~~ LACTIC [id number] 17:52:00 Test Item Value Reference Range Interpretation Comments LACTIC ACID (test code = LACT) 1.6 mmol/L 0.7-2.0 N Coronavirus 2018 nCoV [id number] 17:03:00 Test Item Value Reference Range Interpretation Comments Coronavirus 2018 Negative NEGATIVE This test h as been nCoV Bedside (test authorize d by FDA under code = [id number]) an EUA for use byauthorized laboratories; This [...] and/o r diagnosis of CO VID-19 under Oscsvle54 4(b)(1) of the Act, 21 U.S .C. 360bbb-3(b)(1), unless theauthorizatio n is terminated or r evoked sooner. LACTIC [id number] 16:44:00 Test Item Value Reference Range Interpretation Comments LACTIC ACID (test 2.1 mmol/L 0.7-2.0 HH Critical V alue reported code = LACT) toFirst Name:CU D6486 Last Name:CHEL JUNG READ BACK AND AURORA Love C.LAB.LAS1, on 01/15/20, @ 164 4. UA RFLX MICR CULT IF [id number] 16:42:00 Test Item Value Reference Range Interpretation [...] for culture: Dysuria/FrequencySOURCE OF URINE: CLEAN CATCHLACTIC [id number] 15:54:00 Test Item Value Reference Range Interpretation Comments LACTIC ACID (test 2.6 mmol/L 0.7-2.0 HH Critical V alue reported code = LACT) toFirst Name:MI I8356 Last Name:[facility] FABIANA READ BACK AND AURORA Love C.LAB.LAS1, on 01/15/20, @ 155 4. BASIC METABOLIC [id number] 15:50:00 Test Item Value Reference Range Interpretation [...] 9.6 mg/dL 8.4-10.2 N CA) LIVER FUNCTION [id number] 15:50:00 Test Item Value Reference Range Interpretation [...] U/L 38-126 N (test code = ALKP) [id number] 15:50:00 Test Item Value Reference Range Interpretation Comments LIPASE (test code = LIP) 47 U/L 23-300 N PROTHROMBIN [id number] 15:50:00 Test Item Value Reference Range Interpretation [...] - 3.0 Atrial fibrillation 2.0 - 3.03. Test Analyst al prosthetic valv es (high risk) 2.5 - 3.5 * If oral anticoagulant t herapy is elected to preventrecurren t myocardial infa rction, an INR of 2.5-3 .5 isrecommended, consistent with Food and Drug Administrationr ecommen dations. THROMBOPLASTIN TIME [id number] 15:50:00 Test Item Value Reference Range Interpretation Comments THROMBOPLASTIN TIME 31.8 SECONDS 23.4-37.0 N Therap eutic Range PARTIAL (test code = for Hep katherine PTT) EFFECTIVE Heparin IU/mL aPT T Seconds0.3 64.30.7 88.8 BASIC METABOLIC [id number] 15:49:00 Test Item Value Reference Range Interpretation [...] 9.6 mg/dL 8.4-10.2 N CA) LIVER FUNCTION [id number] 15:49:00 Test Item Value Reference Range Interpretation [...] U/L 38-126 N (test code = ALKP) [id number] 15:49:00 Test Item Value Reference Range Interpretation Comments LIPASE (test code = LIP) U/L 23-300 CBC W/AUTO [id number] 15:30:00 Test Item Value Reference Range Interpretation [...] 3/uL 0.0-0.1 N - XR CHEST 1 [id number] 15:03:00 [facility] 1995 Sex: F [place]: St: PRE Name: NATIVIDAD GREGG [facility] : 1995 Age/S: 24/F [address] Unit #: [id number] Loc: [place] [address] Phys: Victorino Schofield Acct: [id number] Dis Date: Status: PRE ER PHONE #: [phone] Exam Date: 01/15/2020 1450 FAX #: [phone] Reason: CODE SEPSIS EXAMS: CPT CODE: [id number] XR CHEST 1 V 79343 EXAM: Portable chest x-ray, one view INDICATION: [...] CC: Technologist: MANPREET COSBY; STUDENT 2ND YEAR [facility] Date/Time/By: 01/15/2020 (0318) : By: Jaydon PAGE 1 Signed Report [place]: St: PRE Name: NATIVIDAD GREGG [facility] : 1995 Age/S: 24/F [address] Unit #: [id number] Loc: [place] [address] Phys: Mason Schofield Acct: [id number] Dis Date: Status: PRE ER PHONE #: [phone] Exam Date: 01/15/2020 1450 FAX #: [phone] Reason: CODE SEPSIS EXAMS: CPT CODE: [id number] XR CHEST 1 V 24570 <Continued> Orig Print D/T: S: 01/15/2020 (2731) PAGE 2 Signed Report- XR CHEST 1 [id number] 15:03:00[facility] : 1995 Sex: F [place]: St: DIS Name: NATIVIDAD GREGG : 1995 Age/S: 24/F [address] Unit #: [id number] Loc: [address] [place] [id number] Phys: Mason SchofieldYADIRA Acct: [id number] Dis Date: [id number] Status: DIS IN PHONE #: [phone] Exam Date: 01/15/2020 9202 FAX #: [phone] Reason: CODE SEPSIS EXAMS: CPT CODE: [id number] XR CHEST 1 V 44178 EXAM: Portable chest x-ray, one view INDICATION: [...] CC: Technologist: HARJEET CASE; STUDENT 2ND YEAR [facility] Date/Time/By: 01/15/2020 (5564) : By: Jaydon PAGE 1 Signed Report [place]: St: DIS Name: NATIVIDAD GREGG : 1995 Age/S: 24/F [address] Unit #: [id number] Loc: [address] [place] [address] Phys: Mason Schofield Acct: [id number] Dis Date: [id number] Status: DIS IN PHONE #: [phone] Exam Date: 01/15/2020 1450 FAX #: [phone] Reason: CODE SEPSIS EXAMS: CPT CODE: [id number] XR CHEST 1 V 74191 <Continued> Orig Print D/T: S: 01/15/2020 (1507) PAGE 2 Signed ReportLACTIC [id number] 01:50:00 Test Item Value Reference Range Interpretation Comments LACTIC ACID (test code = LACT) 1.2 mmol/L 0.7-2.0 N COMPREHENSIVE METABOLIC [id number] 00:45:00 Test Item Value Reference Range Interpretation [...] N (test code = ALKP) HCG SERUM [id number] 00:45:00 Test Item Value Reference Range Interpretation Comments HCG SERUM QUAL (test code = HCGQL) NEGATIVE NEGATIVE LACTIC [id number] 00:13:00 Test Item Value Reference Range Interpretation Comments LACTIC ACID (test 2.3 mmol/L 0.7-2.0 HH Critical V alue reported code = LACT) toFirst Name: K9646 Last Name:CHEL JUNG READ BACK AND AURORA ShuklaLAB.WR, on , @ 0013. UA RFLX MICR CULT IF [id number] 00:06:00 Test Item Value Reference Range Interpretation [...] Dysuria/FrequencySOURCE OF URINE: CLEAN CATCH COMPREHENSIVE METABOLIC [id number] 23:43:00 Test Item Value Reference Range Interpretation [...] N (test code = ALKP) HCG SERUM [id number] 23:43:00 Test Item Value Reference Range Interpretation Comments HCG SERUM QUAL (test code = HCGQL) NEGATIVE CBC W/AUTO [id number] 23:38:00 Test Item Value Reference Range Interpretation [...] BA#) 0.06 x10 3/uL 0.0-0.1 N LACTIC [id number] 19:19:00 Test Item Value Reference Range Interpretation Comments LACTIC ACID (test code = LACT) 1.6 mmol/L 0.7-2.0 N UA RFLX MICR CULT IF [id number] 18:41:00 Test Item Value Reference Range Interpretation [...] Flank PainSOURCE OF URINE: CLEAN CATCHBASIC METABOLIC [id number] 18:39:00 Test Item Value Reference Range Interpretation [...] 10.0 mg/dL 8.4-10.2 N CA) LIVER FUNCTION [id number] 18:39:00 Test Item Value Reference Range Interpretation [...] U/L 38-126 N (test code = ALKP) [id number] 18:39:00 Test Item Value Reference Range Interpretation Comments LIPASE (test code = LIP) 81 U/L 23-300 N BASIC METABOLIC [id number] 18:37:00 Test Item Value Reference Range Interpretation [...] 10.0 mg/dL 8.4-10.2 N CA) LIVER FUNCTION [id number] 18:37:00 Test Item Value Reference Range Interpretation [...] U/L 38-126 N (test code = ALKP) [id number] 18:37:00 Test Item Value Reference Range Interpretation Comments LIPASE (test code = LIP) U/L 23-300 - CT ABD PELVIS W/O [id number] 18:36:00 [facility] : 1995 Sex: F FAX: Mayelin Santos [phone] [place]: St: PRE Name: CRISTINONATIVIDAD BUSTAMANTE DESEAN [facility] : 1995 Age/S: 24/F [address] Unit: [id number] Loc: [place] [address] Phys: Mayelin Tyler COLLECTIONS ASSISTANT Acct: [id number] Dis Date: Status: PRE ER PHONE #: [phone] Exam Date: 01/13/2020 1820 FAX #: [phone] Reason: flank pain EXAMS: CPT CODE: [id number] CT ABD PELVIS W/O CONT 48237 Examination: Abdomen and pelvic CT without contrast [...] 1 Signed Report (CONTINUED) FAX: Mayelin Santos [phone] [place]: St: PRE--------- Name: NATIVIDAD GREGG [facility] : 1995 Age/S: 24/F [address] Unit: [id number] Loc: [place] [address] Phys: Mayelin Mesa COLLECTIONS ASSISTANT Acct: [id number] Dis Date: Status: PRE ER PHONE #: [phone] Exam Date: 01/13/2020 1820 FAX #: [phone] Reason: flank pain EXAMS: CPT CODE: [id number] CT ABD PELVIS W/O CONT 61082 <Continued> CC: Mayelin Tyler COLLECTIONS ASSISTANT Technologist: Rosa Savage Trnscrd Dt/Tm: 01/13/2020 (183) [...] Flank PainSOURCE OF URINE: CLEAN CATCHCBC W/AUTO [id number] 18:19:00 Test Item Value Reference Range Interpretation [...] 3/uL 0.0-0.[address] Stone [facility] : 1995 Sex: FZOYA [facility] Pt Name: NATIVIDAD GREGG [address] [facility] Phys: Dennis Forman DO [place] [address] : 1995 Age: 25 SEX:F [phone] Exam Date: 01/17/21 Status: REG ER Acct: [id number] Loc: [facility] Pt Unit #: [id number] Report #: [id number] CC: Dennis Forman DO CAT SCAN REPORT Order # Category/Exam [id number] CT/CT Stone Protocol ([id number]): . Results CT ABDOMEN NONCONTRAST CT PELVIS [...]
[2021-02-03 15:06] LABS: Urine Blood Negative (Negative); Urine Glucose Negative (Negative); Urine Protein Negative (Negative); Urine Specific Gravity 1.025 (1.005-1.030)
[2021-02-03 15:46] LABS: Urine Specific Gravity/Preg 1.025 (1.005-1.030)
--- NOTE | 2021-02-03 15:46 | RAD REPORT ---
EXAM DESCRIPTION: CT - Spine Lumbar Wo Con - 02/03/2021 3:26 pm CLINICAL HISTORY: r/o abscess COMPARISON: None. TECHNIQUE: Thin section axial imaging of the lumbar spine was performed. Sagittal and coronal recon struction images were generated and reviewed. All CT scans are performed using dose optimization technique as appropriate and may include automated exposure control or mA/KV adjustment according to patient size. FINDINGS: Multiple bilateral nonobstructing 5 mm or less calyx calculi are present. No hydronephrosi s identified. Uterus and ovaries show no suspicious findings. Partially filled urinary bladder is unr emarkable. No suspicious soft tissue findings noted on this study. Lumbar vertebral bodies are normal in height and alignment. No acute findings of the vertebral bodies noted. L5-S1 disc space is slightly narrowed with endplate spurring changes seen. The T12-L1 thru L3-4 disc levels show no significant finding. L4-5 disc level shows a mild bulging of disc material in the central canal. No canal or foramen steno sis seen. L5-S1 level shows apparent right paracentral bulging disc material. This appears to contact the right S1 nerve root. Correlation is needed with any right S1 radicular symptoms. Central canal detail is inherently limited on CT imaging. No suspicion for a central canal mass. IMPRESSION: Central canal detail is inherently limited on CT imaging. However, there does appear to be a right paracentral disc bulge L5-S1 contacting the right S1 nerve root. Correlation is needed wit h any associated radicular symptoms. Minimal L4-5 disc bulge is evident without canal or foramen encroachment. Patient does have early for age degenerative change at L5-S1. Concerns for disc herniation, central canal abnormality or occult bone process could be further evalu ated with outpatient MR imaging as warranted.
[2021-02-03] MEDS ORDERED: MORPHINE 4 MG/ML SYR ONE (15:55)
--- NOTE | 2021-02-03 16:01 | EDPHYS ---
Physician Documentation [facility] Name: Ana Lilia Kline Age: 25 yrs Sex: Female : 1995 Arrival Date: 02/03/2021 Time: 14:09 Bed 10 Private MD: ED Physician Indra Yee HPI: 02/03 15:10 This 25 yrs old Female presents to ER via Ambulatory with complaints of Back Pain. rn 15:10 The patient presents with pain that is acute, with no known mechanism of injury. The rn symptoms are located in the low back. 15:13 Onset: The symptoms/episode began/occurred 1 week(s) ago. The pain does not radiate. rn Associated signs and symptoms: Pertinent negatives: abdominal pain, chest pain, dysuria, fever, hematuria, incontinence, nausea, numbness, tingling, urinary retention, vomiting, weakness. Modifying factors: The patient symptoms are alleviated by nothing, the patient symptoms are aggravated by any movement. Severity of symptoms: At their worst the symptoms were moderate, in the emergency department the symptoms are unchanged. The patient has experienced similar episodes in the past. The patient has been recently seen by a physician: The patient has been recently seen at the [facility] Emergency Department. Patient states having low back pain. 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 States just moved to the area and her neurosurgeon is in [place]. Seen here last night and left AGAINST MEDICAL ADVICE 1 CT or imaging was recommended. States returns because is concerned that might actually have a problem that requires a CT and is willing to get a CT now. Denies any lower extremity weakness or numbness. No bowel or bladder issues. Denies trauma. No fever.. 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 - Social history:: Patient/guardian denies using tobacco products, Smoking status: Patient denies any tobacco usage or history of. - Family history:: not pertinent. - Hospitalizations: : No recent hospitalization is reported. ROS: 15:13 Constitutional: Negative for fever, chills, and weight loss, Eyes: Negative for injury, rn pain, redness, and discharge, Neck: Negative for injury, pain, and swelling, Cardiovascular: Negative for chest pain, palpitations, and edema, Respiratory: Negative for shortness of breath, cough, wheezing, and pleuritic chest pain, Abdomen/GI: Positive for lower back pain Back: Negative for injury and pain, : Negative for injury, bleeding, discharge, and swelling, MS/Extremity: Negative for injury and deformity, Skin: Negative for injury, rash, and discoloration, Neuro: Negative for headache, weakness, numbness, tingling, and seizure. Exam: 15:13 Constitutional: This is a well developed, well nourished patient who is awake, alert, rn pacing in room and squatting repeatedly Head/Face: Normocephalic, atraumatic. Eyes: Periorbital areas with no swelling, redness, or edema. Respiratory: No increased work of breathing, no retractions or nasal flaring. Back: Tenderness lower lumbar and upper sacral region underlying previous surgical scar. No masses palpated or fluctuance. Skin: Warm, dry MS/ Extremity: Pulses equal, no cyanosis. Neurovascular intact. Full, normal range of motion. Equal circumference. Neuro: Awake and alert, GCS 15, oriented to person, place, time, and situation. Motor strength 5/5 in all extremities. Sensory grossly intact. Cerebellar exam normal. Normal gait. Vital Signs: 14:21 BP 126 / 76; Pulse 56; Resp 20; Temp 97.9(O); Pulse Ox 99% ; Pain 10/10; jh6 MDM: 14:22 Patient medically screened. rn 15:59 Differential diagnosis: arthritis, chronic back pain, Osteoarthritis ruptured disc, rn Ureterolithiasis radiculopathy. Data reviewed: vital signs, nurses notes, old medical records, radiologic studies, CT scan, and as a result, I will discharge patient. Counseling: I had a detailed discussion with the patient and/or guardian regarding: the historical points, exam findings, and any diagnostic results supporting the discharge/admit diagnosis, lab results, radiology results, the need for outpatient follow up, to return to the emergency department if symptoms worsen or persist or if there are any questions or concerns that arise at home. Response to treatment: the patient's symptoms have mildly improved after treatment, and as a result, I will discharge patient. Special discussion: I discussed with the patient/guardian in detail that at this point there is no indication for admission to the hospital. It is understood, however, that if the symptoms persist or worsen the patient needs to return immediately for re-evaluation. Based on the history and exam findings, there is no indication for further emergent testing or inpatient evaluation. I discussed with the patient/guardian the need to see the back specialist for further evaluation of the symptoms. ED course: No acute findings on CT lumbar spine. + signs of disk disorder with radiculopathy, will dc home with steroids and back specialist f/u. NO evidence of fluid collection or infection. Pt report radiculopathy symptoms shooting down leg that match findings on CT. . 02/03 15:05 Order name: Urine Dipstick-Ancillary; Complete Time: 15:10 EDMS 02/03 15:18 Order name: Urine --Ancillary (enter results); Complete Time: 15:48 bd 02/03 15:25 Order name: Spine Lumbar Wo Con; Complete Time: 15:48 EDMS 02/03 14:30 Order name: Urine Dipstick-Ancillary (obtain specimen); Complete Time: 15:08 rn 02/03 14:30 Order name: Urine Test (obtain specimen); Complete Time: 15:08 rn Administered Medications: 15:58 Drug: morphine 4 mg Route: IM; Site: left gluteus; aa5 16:18 Follow up: Response: No adverse reaction aa5 Disposition Summary: 02/03/21 16:00 Discharge Ordered Location: Home rn Problem: new rn Symptoms: have improved rn Condition: Stable rn Diagnosis - Intervertebral disc disorders with radiculopathy, lumbosacral region rn Followup: rn - With: Private Physician - When: As needed - Reason: Recheck today's complaints, Re-evaluation by your physician Followup: rn - With: Luis Herrera MD - When: As needed - Reason: Recheck today's complaints, Re-evaluation by your physician Discharge Instructions: - Discharge Summary Sheet rn - Herniated Disk rn - Lumbosacral Radiculopathy rn Forms: - Medication Reconciliation Form rn - Thank You Letter rn - Antibiotic furnace cooler - Prescription Opioid Use rn Prescriptions: - Medrol (Josias) 4 mg Oral Tablets, Dose Pack - take 1 tablet by ORAL route as directed - follow package instructions; 1 rn packet; Refills: 0, Product Selection Permitted Signatures: Dispatcher [employer] EDMS Indra Yee MD MD rn Calderon, Audri RN RN aa5 Jeanie Hay RN RN jh6 Corrections: (The following items were deleted from the chart) 14:25 14:24 Home Meds: Cymbalta Oral [Inactive]; [place] [id number] 14:25 14:24 Home Meds: gabapentin Oral [Inactive]; [place] [id number] 14:25 14:24 Home Meds: Flexeril Oral [Inactive]; [place] [id number] 14:25 14:24 Home Meds: tramadol 100 mg Oral BP25 1 cap once daily [Inactive]; [place] [id number] 14:25 14:24 Home Meds: methocarbamol 750 mg Oral tab 1 tab every 4 hours [Inactive]; [place] [id number] 14:25 14:24 PMHx: Endometrosis; [place] [id number] 14:25 14:24 PMHx: Asthma; [place] [id number] 14:25 14:24 PMHx: polycystic ovarian disease; [place] [id number] 14:25 14:24 PMHx: sudotumor ceribri; [place] [address] 14:25 14:24 PMHx: Kidney stones; [place] [id number] 14:25 14:24 PSHx: Right fallopen tube removed from torson; [place] [address] 14:25 14:24 PSHx: Cholecystectomy; [place] [address] 14:25 14:24 PSHx: Kidney stent placed and removed; [place] [address] 14:25 14:24 PSHx: Multiple I\T\D's from abcesses; [place] [address] 14:25 14:24 PSHx: L5\T\6 discectomy; [place] [address] 14:25 14:24 PSHx: seroma removed from back; [place] [address] 15:25 14:42 Spine Lumbar W/Cont ordered. EDNV EDMS 16:01 14:29 IV Saline Lock ordered. rosanna aa5
--- NOTE | 2021-02-03 16:01 | ER ---
Nurse's Notes [facility] Name: Ana Lilia Kline Age: 25 yrs Sex: Female : 1995 Arrival Date: 02/03/2021 Time: 14:09 Bed 10 Private MD: Diagnosis: Intervertebral disc disorders with radiculopathy, lumbosacral region Presentation: 02/03 14:21 Chief complaint: Patient states: Reporting that she has a hx of abscess' on her lower jh6 spine secondary to a surgical procedure. States that she has had increased lower back pain over the last week and that she does not have a PCP down in this area. Coronavirus screen: Client denies travel out of the [place] in the last 14 days. At this time, the client does not indicate any symptoms associated with coronavirus-19. Ebola Screen: Patient negative for fever greater than or equal to 101.5 degrees Fahrenheit, and additional compatible Ebola Virus Disease symptoms Patient denies exposure to infectious person. Patient denies travel to an Ebola-affected area in the 21 days before illness onset. Initial Sepsis Screen: Does the patient meet any 2 criteria? No. Patient's initial sepsis screen is negative. Does the patient have a suspected source of infection? No. Patient's initial sepsis screen is negative. Risk Assessment: Do you want to hurt yourself or someone else? Patient reports no desire to harm self or others. Onset of symptoms was January 27, 2021. 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 - Social history:: Patient/guardian denies using tobacco products, Smoking status: Patient denies any tobacco usage or history of. - Family history:: not pertinent. - Hospitalizations: : No recent hospitalization is reported. Screenin:25 Abuse screen: Denies threats or abuse. Nutritional screening: No deficits noted. 6 Tuberculosis screening: No symptoms or risk factors identified. Fall Risk None identified. Assessment: 14:25 General: Appears uncomfortable, obese, well developed, Behavior is cooperative. Pain: jh6 Denies pain. Complains of pain in back Pain radiates to back Pain currently is 10 out of 10 on a pain scale. Quality of pain is described as sharp, shooting, gnawing. 16:18 Reassessment: Patient is alert, oriented x 3, equal unlabored respirations, skin aa5 warm/dry/pink. Vital Signs: 14:21 BP 126 / 76; Pulse 56; Resp 20; Temp 97.9(O); Pulse Ox 99% ; Pain 10/10; 6 ED Course: 14:09 Patient arrived in ED. ds1 14:21 Jeanie Hay, RN is Primary Nurse. [facility] 14:22 Indra Yee MD is Attending Physician. rn 14:24 Triage completed. [facility] 14:26 Call light in reach. [facility] 14:27 Arm band placed on left wrist. [facility] 15:14 X-ray(s) taken. 6 15:26 Spine Lumbar Wo Con In Process Unspecified. EDCA 16:01 Luis Herrera MD is Referral Physician. rn 16:20 No provider procedures requiring assistance completed. Patient did not have IV access aa5 during this emergency room visit. Administered Medications: 15:58 Drug: morphine 4 mg Route: IM; Site: left gluteus; aa5 16:18 Follow up: Response: No adverse reaction aa5 Outcome: 16:00 Discharge ordered by . rn 16:19 Discharged to home ambulatory. aa5 16:19 Condition: stable 16:19 Discharge instructions given to patient, Instructed on discharge instructions, follow up and referral plans. medication usage, Demonstrated understanding of instructions, follow-up care, medications, Prescriptions given X 1. 16:20 Patient left the ED. aa5 Signatures: Dispatcher [employer] [facility] Carmen Bassett ds1 Indra Yee MD MD rn Calderon, Audri, RN RN aa5 Jeanie Hay RN RN 6 Corrections: (The following items were deleted from the chart) 14:25 14:24 Home Meds: Cymbalta Oral [Inactive]; 6 [facility] 14:25 14:24 Home Meds: gabapentin Oral [Inactive]; jh6 jh6 14:25 14:24 Home Meds: Flexeril Oral [Inactive]; jh6 jh6 14:25 14:24 Home Meds: tramadol 100 mg Oral BP25 1 cap once daily [Inactive]; jh6 jh6 14:25 14:24 Home Meds: methocarbamol 750 mg Oral tab 1 tab every 4 hours [Inactive]; jh6 jh6 14:25 14:24 PMHx: Endometrosis; jh6 jh6 14:25 14:24 PMHx: Asthma; jh6 jh6 14:25 14:24 PMHx: polycystic ovarian disease; jh6 jh6 14:25 14:24 PMHx: sudotumor ceribri; 6 jh6 14:25 14:24 PMHx: Kidney stones; jh6 jh6 14:25 14:24 PSHx: Right fallopen tube removed from torson; jh6 jh6 14: 14:24 PSHx: Cholecystectomy; 6 jh6 14:25 14:24 PSHx: Kidney stent placed and removed; jh6 jh6 14:25 14:24 PSHx: Multiple I\T\D's from abcesses; jh6 jh6 14:25 14:24 PSHx: L5\T\6 discectomy; jh6 jh6 14:25 14:24 PSHx: seroma removed from back; jh6 jh6
[2021-02-03 16:28] VITALS: BP 126/76; TEMP 97.9; O2SAT 99
== END 2021-02-03 16:20 | disposition home or self-care (01) ==
LOC: ER 14:09
DX: M51.17 Intervertebral disc disorders with radiculopathy, lumbosacral region (principal); Z88.1 Allergy status to other antibiotic agents; Z88.5 Allergy status to narcotic agent; Z88.8 Allergy status to other drugs, medicaments and biological substances
CPT/HCPCS: 72131; 81003; 81025; 96372; 99283

== ENCOUNTER 2021-10-20 12:57 | Emergency (ER) | payer OTHER ==
--- OUTSIDE RECORDS SUMMARY | 2021-10-20 13:05 | XMS REPORT | Continuity of Care Document ---
:1995 Author Organization [facility] t Address [address] [place] [address] Care Team Providers Name Role Phone Provider, Unknown Primary Care Physician Unavailable Johnathan Madrid Attending Clinician Unavailable WAN PACHECO Attending Clinician Unavailable Wan Pacheco DO Attending Clinician Dennis Forman Attending Clinician Unavailable Oli Kay Attending Clinician Unavailable MANOLO CORTES Attending Clinician Unavailable DAVID HERNANDES Attending Clinician Unavailable Soren BECKFORD, Leah Mcgee Attending Clinician [phone] Sean Patterson DOeDavonte Attending Clinician Darron Jules MD Attending Clinician Mary Harmon Attending Clinician Doctor Unassigned, [place] Attending Clinician Unavailable Anita Kruse Attending Clinician Unavailable Bradly Sebastian Attending Clinician Unavailable Physician, No Primary or Family Admitting Clinician Unavaila ble Referred, Self Admitting Clinician Unavailable MICA MAYA Admitting Clinician Unavailable WAN PACHECO Admitting Clinician Unavailable Bradly Sebastian Admitting Clinician Unavailable Payers Payer Name Policy Type Policy Number Effective Date Expiration Date S [facility] [id number] 2017 00:00:00 [place]ID OF [place] [id number] 2018 00:00:00 Problems Condition Condition Condition Status Onset Resolution Last Treating Co mments Source Name Details Category Date Date Treatment Clinician Date Preeclamps Preeclamps Disease Active 2015-03 U nivers ia ia 2-04 ity of 00:00: [address] Preeclamps Preeclamps Disease Active 2015-03 U nivers ia, third ia, third 2-03 ity of [facility] [address] [place] [address] Acute Acute Disease Active 2015-03 Univers headache headache 2-02 ity of 00:00: [address] Papilledem Papilledem Disease Active 2015-03 U nivers a a 2-02 ity of 00:00: [address] 36 weeks 36 weeks Disease Active 2015-03 Unive rs gestation gestation 1-29 ity of of of 00:00: [place] 00 [facility] 26 weeks 26 weeks Disease Active Unive rs gestation gestation 9-20 ity of of of 00:00: [place] 00 [facility] Hematuria Hematuria Disease Active Uni vers 9-20 ity of 00:00: [address] Lower Lower Disease Active Univers abdominal abdominal 9-20 ity of pain pain 00:00: [place] 00 [facility] Branch Nausea and Nausea and Disease Active U nivers vomiting vomiting 9-06 ity of during during 00:00: [place] 00 [facility] Diarrhea Diarrhea Disease Active 2015-0 Unive rs 9-06 ity of 00:00: [place] 00 Medical Branch Dehydratio Dehydratio Disease Active 2016-0 U nivers n n 9-06 ity of 00:00: [place] 00 Medical Branch Pseudotumo Pseudotumo Disease Active 2016-0 U nivers r cerebri r cerebri 9-06 ity of 00:00: [place] 00 Medical Branch 24 weeks 24 weeks Disease Active 2016-0 Unive rs gestation gestation 9-06 ity of of of 00:00: [place] 00 [facility] Epigastric Epigastric Disease Active 2016-0 U nivers abdominal abdominal 9-06 ity of pain pain 00:00: [place] 00 Medical Branch Gastroente Gastroente Disease Active 2016-0 U nivers ritis ritis 9-06 ity of 00:00: [place] 00 Medical [facility] Headache Headache Disease Active 0 Unive rs 8-20 ity of 00:00: [place] 00 Medical Branch Blurry Blurry Disease Active 2015-0 Univers vision, vision, 8-20 ity of bilateral bilateral 00:[facility]: [facility] 21 weeks 21 weeks Disease Active 2015-0 Unive rs gestation gestation 8-20 ity of of of 00:00: [place] 00 [facility] Allergies, Adverse Reactions, Alerts Allergy Allergy Status Severity Reaction(s) Onset Inactive Treating Comm ents Source Name Type Date Date Clinician No Known DA Active U [facility] Allergie 7 Withams s 00:00: [facility] 00 are [place] Unable [facility]: 00 metoclop DA Active U 2019- [facility] ramide 03-16w 00:00: d 00 [facility] metoclop DA Active U MUSCLE SPASM 2019- HC A ramide 03-16 00:00: d 00 [facility] Center doxycycl DA Active MO 2020-1 [facility] ine 03-16w 00:00: d 00 [facility] azithrom DA Active MO 2019-1 [facility] ycin 03-16w 00:00: d 00 [facility] Center doxycycl DA Active MO HIVES, RASH 2020- [facility] ine 03-[address] [facility] 00:00: d 00 [facility] Center azithrom DA Active MO HIVES, RASH 2019-1 [facility] ycin 1-01 [place] 00:00: d 00 [facility] Azithrom Propensi Active Anaphylaxis 2020-0 M ethodi ycin ty to [address] adverse 00:00: Hospita reaction 00 l s to drug Doxycycl Propensi Active GI 2020-0 Method i ine ty to Intolerance [address] adverse 00:00: Hospita reaction 00 l s to drug Ketorola Propensi Active Hives 2020-0 Method i c ty to [address] adverse 00:00: Hospita reaction 00 l s to drug KETOROLA DRUG Active Hives 2019-0 Univers C INGREDI 16 ity of 00:00: [place] 00 [facility] Ketorola Propensi Active Hives 2018-0 Univer s c ty to 08-29 ity of adverse 00:00: [place] reaction 00 [facility] doxycycl DA Active SV H[facility] ine 2-09 Clear 00:00: Ng 00 [facility] doxycycl DA Active SV THROAT [facility] ine CLOSES 2 Clear 00:00: Ng 00 [facility] Doxycycl Drug [place] [address] [facility] [address] [facility]ergy Breath 1-17 [facility] 00:[facility]: Medical 00 [place] Azithrom Drug Active Shortness Of 2017-[address] [facility]cin Allergy Breath 1-17 [facility] 00:00: Medical 00 [place] IODINE DRUG Active Swelling 2015-03 Univers INGREDI 2- ity of 00:00: [place] 00 Medical [place] Iodine Propensi Active Swelling 2015-03 Univer s ty to 2-03 ity of adverse 00:00: [place] reaction 00 Medical [facility] DOXYCYCL DRUG Active Anxiety 2014-03 Univers INE INGREDI 2- ity of 00:00: [place] 00 Medical [place] AZITHROM DRUG Active Swelling 2014-03 Univer s YCIN INGREDI 2- ity of 00:00: [place] 00 Medical Branch Doxycycl Propensi Active Anxiety 2014-03 Unive rs ine ty to 2- ity of adverse 00:00: [place] reaction 00 Medical [facility] Azithrom Propensi Active Swelling 2014-03 Univ ers ycin ty to 2- ity of adverse 00:00: [place] reaction 00 [facility] azithrom DA Active SV HCA ycin 5-09 Clear 00:00: Ng 00 [facility] azithrom DA Active SV SWELLS 2012-0 HCA ycin 07-22 Clear 00:00: Ng 00 [facility] Social History Social Habit Start Date Stop Date Quantity Comments Source Exposure to Not sure [facility] SARS-CoV-2 (event) [facility] [place] [facility] History of tobacco Cigarette Smoker [facility] use Hospital History [facility] Alcohol Std Drinks Hospit al History SDOH [facility] Tobacco use and 2020-10-21 2020-10-21 Never used [facility] exposure 00:00:00 00:00:00 Hospital History SDOH 2020-10-21 2020-10-21 1 [facility] Alcohol Frequency 00:00:00 00:00:00 Hospita l Alcohol intake 2020-04-27 2020-04-27 0 /d University of 00:00:00 00:00:00 [facility] [place] [facility] Cigarettes smoked 2015-11-03 2015-11-03 Univers ity of current (pack per 00:00:00 00:00:00 ) - Reported Branch Cigarette 2015-11-03 2015-11-03 University of pack-years 00:00:00 00:00:00 [facility] [place] [facility] Tobacco Comment 2015-11-03 2015-11-03 currently Universit y of 00:00:00 00:00:00 smoking [facility] [place] [facility] Sex Assigned At [address] [facility] 00:00:00 00:00:00 [facility] Smoking Status Start Date Stop Date Source Unknown if ever smoked [facility] Former smoker 2020-10-21 00:00:00 2020-10-21 00:00:00 [facility] Current every day 2016-04-01 00:00:00 [facility] Medical smoker Center Medications Ordered Filled Start Stop Current Ordering Indication Dosage Frequency Signature Comments Components Source Medication Medication Date Date Medication? Clinician (SIG) Name Name naproxen 2020-03 No 500mg 500 mg, Univ ers (NAPROSYN) 03-21 Oral, ity of tablet 500 04:30: 03:25 ONCE, 1 [place] as mg 00 :00 dose, On Medical Fri Branch 01/18/21 at 2330, Routine morpHINE 2020-03 No 4mg 4 mg, Slow Un martin injection 4 1-06 11-06 IV Push, ity of mg 03:15: 02:15 ONCE, 1 [place] 00 :00 dose, On Medical Fri Branch 01/18/21 at 2215, STAT iohexol 2020-03 No [id number] 120mL 120 mL, Univers (OMNIPAQUE 03-21 Intravenou it y of 350 02:30: 02:21 s, ONCE, 1 [place] BULK-100 00 :00 dose, On Medical mL) Fri Branch injection 01/18/21 at 120 mL 2130, Routine NaCl 0.9% 2020-03 No 1000mL at 999 Uni vers (NS) bolus 03-21 mL/hr, ity of infusion 02:30: 03:10 1,000 mL, [place] as 1,000 mL 00 :00 IV Medical Piggyback, Branch ONCE, 1 dose, On Thu01/18/21 at 2130, STAT ondansetron 2020-03 No 4mg 4 mg, Slow Univers (ZOFRAN 03-21 IV Push, ity of (PF)) 01:30: 01:45 ONCE, 1 [place] injection 4 00 :00 dose, On Medi nirmala mg Thu Branch 01/18/21 at 2030, Routine morpHINE 2020-03 Yes 4mg 4 mg, Slow Uni vers injection 4 03-21 IV Push, ity of mg 01:26: Q4HPRN, [place] 41 Starting Medical on Thu Branch 01/18/21 at 2026, Until Discontinu ed, Routine, Pain (scale 7-10) HYDROcodone 2020- No 1{tbl} 1 tablet, Univers -acetaminop 08-29 Oral, ity of hen (NORCO 16:15: 15:21 ONCE, 1 [place] as 5) 5-325 mg 00 :00 dose, Thu Med ical tablet 1 08/29/20 at [facility] h tablet 1115, NIKITA FENTanyl PF No 50ug 50 mcg, Un martin (SUBLIMAZE 08-29 Slow IV ity o f (PF)) 15:45: 14:46 Push, [place] injection 00 :00 ONCE, 1 Medical 50 mcg dose, Thu Branch 08/29/20 at 1045, STAT FENTanyl PF 2020- No 50ug 50 mcg, Un martin (SUBLIMAZE 08-29 Slow IV ity o f (PF)) 10:15: 09:14 Push, [place] injection 00 :00 ONCE, 1 Medical 50 mcg dose, [facility] 08/29/20 at 0515, Routine HYDROcodone 2020- No 1{tbl} 1 tablet, Univers -acetaminop 08-29 Oral, ity of hen (NORCO 06:00: 05:06 ONCE, 1 [place] as 5) 5-325 mg 00 :00 dose, Thu Med ical tablet 1 08/29/20 at [facility] tablet 0100, NIKITA gadoteridol 2020- No [id number] .2mL/kg 24.4 mL Univers (PROHANCE-2 08-29 (0.2 mL/kg i ty of 0 mL) 04:45: 04:30 ?122 kg), [place] injection 00 :00 Intravenou Medi nirmala 24.4 mL s, ONCE, 1 Branch dose, [facility] 08/28/20 at 2345, Routine FENTanyl PF 2020- No 50ug 50 mcg, Un martin (SUBLIMAZE 08-29 Slow IV ity o f (PF)) 03:15: 02:29 Push, [place] injection 00 :00 ONCE, 1 Medical 50 mcg dose, [facility] 08/28/20 at 2215, Routine morpHINE 2020- No 4mg 4 mg, Slow Un martin injection 4 08-29 IV Push, ity of mg 01:45: 00:47 ONCE, 1 [place] 00 :00 dose, [facility] Medical 08/28/20 at Branch 2045, STAT piperacilli 2020- No 3.375g 3.375 g, Univers n-tazobacta 08-29 IV ity of m (ZOSYN) 01:15: 01:17 Piggyback, [place] 3.375 g in 00 :00 ONCE, 1 Medica l NaCl 0.9% dose, [facility] (NS) 100 mL 08/28/20 at MINI-BAG 2015, 100 mL
Reas on for Anti-Infec tive: [...] Piggyback, ONCE NOW, 1 dose, 08/28/20 at 2014
Re ason for Anti-Infec tive: Documented Infection< br>Documen jose Infection Site: Skin / Soft Tissue
Duration of Therapy: Other (see Comments) FENTanyl PF 2020- No 50ug 50 mcg, Un martin (SUBLIMAZE 08-28 Slow IV ity o f (PF)) 22:00: 22:10 Push, [place] injection 00 :00 ONCE, 1 Medical 50 mcg dose, [facility] 08/28/20 at 1700, Routine ondansetron 2020- No 4mg 4 mg, Slow Univers (ZOFRAN 08-28 IV Push, ity of (PF)) 19:16: 21:12 ONCE, 1 [place] injection 4 00 :00 dose, Tue Med ical mg 08/28/20 at Branch 1430, NIKITA morpHINE 2020- No 4mg 4 mg, Slow Un martin injection 4 08-28 IV Push, ity of mg 19:16: 21:11 ONCE, 1 [place] 00 :00 dose, Tue Medical 08/28/20 at Branch 1430, STAT diphenhydrA [...] mg 04/27/20 at Branch 2200, NIKITA morpHINE 2020-0 2020- No 4mg 4 mg, Slow Un martin injection 4 04-28 IV Push, ity of mg 04:00: 03:03 ONCE, 1 [place] 00 :00 dose, Fri Medical 04/27/20 at Branch 2200, STAT acetaminoph 2020-0 2020- No 1{tbl} 1 tablet, Univers en-codeine 04-28 Oral, ity of (TYLENOL 03:45: 04:43 ONCE, 1 [place] #3) 300-30 00 :00 dose, Fri Medi nirmala mg tablet 1 04/27/20 at Br anch tablet 2145, NIKITA NaCl 0.9% 2020- No 1000mL at 999 Uni vers (NS) bolus 04-28 mL/hr, ity of infusion 03:00: 05:12 1,000 mL, [place] as 1,000 mL 00 :00 IV Medical Infusion, [place] ONCE, 1 dose, 04/27/20 at 2100, NIKITA HYDROcodone Yes [id number] 1{tbl} Take 1 Univers -acetaminop 6-17 tablet by ity of hen (NORCO) 00:00: mouth [place] 10-325 mg 00 every 6 Medical tablet (six) Branch hours as needed for Pain (scale 7-10). HYDROcodone Yes [id number] 1{tbl} Take 1 Univers -acetaminop 6-17 tablet by ity of hen (NORCO) 00:00: mouth [place] 10-325 mg 00 every 6 Medical tablet (six) Branch hours as needed for Pain (scale 7-10). HYDROcodone Yes [id number] 1{tbl} Take 1 Univers -acetaminop 6-17 tablet by ity of hen (NORCO) 00:00: mouth [place] 10-325 mg 00 every 6 Medical tablet (six) Branch hours as needed for Pain (scale 7-10). HYDROcodone Yes [id number] 1{tbl} Take 1 Univers -acetaminop 6-17 tablet [...] 7-10) (ALTERNATE WITH TYLENOL # 3). acetaminoph Yes 1{tbl} Take 1 Un martin en-codeine 9-04 tablet by ity of (TYLENOL-CO 00:00: mouth [place] DEINE #3) 00 every 4 Medical 300-30 mg (four) Branch tablet hours as needed for Pain (scale 7-10). traMADOL Yes 50mg Take 1 Univers (ULTRAM) 50 9-04 tablet by ity of mg tablet 00:00: mouth [place] 00 every 6 Medical (six) Branch hours as needed for Pain (scale 7-10) (ALTERNATE WITH TYLENOL # 3). acetaminoph Yes 1{tbl} Take 1 Un martin en-codeine 9-04 tablet by ity of (TYLENOL-CO 00:00: mouth [place] DEINE #3) 00 every 4 Medical 300-30 mg (four) Branch tablet hours as needed for Pain (scale 7-10). traMADOL 0 Yes 50mg Take 1 Univers (ULTRAM) 50 [...] ity of mg tablet 00:00: mouth 2 [place] 00 (two) Medical times Branch daily with [...] by ity of tablet 00:00: mouth 3 00 (three) Medical times Branch daily. phenazopyri [...] by ity of tablet 00:00: mouth 3 00 (three) Medical times Branch daily. proMETHazin [...] 4-6) for up to 10 doses. proMETHazin Yes 25mg Take 1 Univ ers e [...] 4-6) for up to 10 doses. proMETHazin Yes 25mg Take 1 Univ ers e [...] [facility]-17 [facility] 21:52: [address] ACETAZOLAMI Yes Take by [facility] 1-17 [facility]. [facility] 21:52: [address] Nitrofurant 2015-03 Yes 100mg Take 1 [...] Branch hours as needed for Alternate with [place] for pain scale 1-3. tamsulosin 2015-03 Yes [...] Branch hours as needed for Alternate with [place] for pain scale 1-3. tamsulosin 2015-03 Yes [...] Branch hours as needed for Alternate with [place] for pain scale 1-3. tamsulosin 2015-03 Yes [...] Branch hours as needed for Alternate with [place] for pain scale 1-3. tamsulosin 2015-03 Yes [...] Branch hours as needed (headache) . butalbital- 2015-03 Yes 2{tbl} Take 2 Un [...] (scale 1-3) or Pain (scale 4-6). proCHLORper 2016-1 Yes 10mg Take 1 Univ ers azine 2-02 tablet by ity of (COMPAZINE) 00:00: mouth [place] 10 mg 00 every 6 Medical tablet (six) Branch hours as needed (headache) . No known No [facility] medications [facility] Vital Signs Vital Name Observation Time Observation Value Comments Source Heart rate 2021-01-19 03:10:00 120 /min Universi [facility] Systolic blood 2021-01-19 03:00:00 134 mm[Hg] Univer sity of [facility] Diastolic blood 2021-01-19 03:00:00 90 [facility]Hg[facility] 2021-01-19 03:00:00 20 /min [facility] Oxygen saturation in 2021-01-19 03:00:00 97 /min University of Arterial blood by [place] [facility] Pulse oximetry Branch Body temperature 2021-01-19 01:23:00 37.11 Martina [facility] Body height 2021-01-19 01:23:00 [facility].5 cm [facility] [place] Body weight 2021-01-19 01:23:00 117.935 kg [facility] BMI 2021-01-19 01:23:00 47.55 kg/m2 [facility] [place] Systolic blood 2020-08-29 15:23:00 132 mm[Hg] Univer sity [facility] Diastolic blood 2020-08-29 15:23:00 82 mm[Hg] Unive rsity [facility] Heart rate 2020-08-29 15:23:00 113 /min [facility] [place] Respiratory rate 2020-08-29 15:23:00 14 /min [facility] in 2020-08-29 15:23:00 98 /min University of Arterial blood by [place] [facility] Pulse oximetry Branch Body weight 2020-08-28 19:17:00 122 kg [facility] [place] BMI 2020-08-28 19:17:00 49.19 kg/m2 [facility] Body temperature 2020-08-28 18:46:00 36.72 Martina Univ ersity of [place] [facility] Systolic blood 2020-08-29 15:23:00 132 mm[Hg] Univer sity of pressure [place] [facility] Diastolic blood 2020-08-29 15:23:00 82 mm[Hg] Unive rsity of pressure [place] [facility] Heart rate 2020-08-29 15:23:00 113 /min Universi ty of [place] [facility] Respiratory rate 2020-08-29 15:23:00 14 /min Univ ersity of [place] [facility] Oxygen saturation in 2020-08-29 15:23:00 98 /min University of Arterial blood by [place] MYOMO nirmala Pulse oximetry Branch Body weight 2020-08-28 19:17:00 122 kg Universi ty of [place] [facility] BMI 2020-08-28 19:17:00 49.19 kg/m2 Universi ty of [place] [facility] Body temperature 2020-08-28 18:46:00 36.72 Martina Univ ersity of [place] [facility] Systolic blood 2020-04-28 03:05:00 119 mm[Hg] Univer sity of pressure [place] [facility] Diastolic blood 2020-04-28 03:05:00 80 mm[Hg] Unive rsity of pressure [place] [facility] Heart rate 2020-04-28 03:05:00 117 /min Universi ty of [place] [facility] Respiratory rate 2020-04-28 03:05:00 20 /min Univ ersity of [place] [facility] Oxygen saturation in 2020-04-28 03:05:00 99 /min University of Arterial blood by [place] MYOMO nirmala Pulse oximetry Branch Body temperature 2020-04-28 02:32:00 37.22 Martina Univ ersity of [place] [facility] Body height 2020-04-28 02:32:00 157.5 cm Universi ty of [place] [facility] Body weight 2020-04-28 02:32:00 122.471 kg Universi ty of [place] [facility] BMI 2020-04-28 02:32:00 49.38 kg/m2 Universi ty of [place] [facility] Systolic blood 2020-04-28 03:05:00 119 mm[Hg] Univer sity of pressure [place] [facility] Diastolic blood 2020-04-28 03:05:00 80 mm[Hg] Unive rsity of pressure [facility] [place] [facility] Heart rate 2020-04-28 03:05:00 117 /min [facility] Respiratory rate 2020-04-28 03:05:00 20 /min [facility] Oxygen saturation in 2020-04-28 03:05:00 99 /min University Arterial blood by [facility] Pulse oximetry [place] Body temperature 2020-04-28 02:32:00 37.22 Martina [facility] Body height 2020-04-28 02:32:00 157.5 cm [facility] Body weight 2020-04-28 02:32:00 122.471 kg [facility] BMI 2020-04-28 02:32:00 49.38 kg/m2 [facility] BMI 2020-10-22 04:27:00 51.21 kg/m2 [facility] Body height 2020-10-22 04:27:00 157.5 cm [facility] Body weight 2020-10-22 04:27:00 127.007 kg 280 [facility] Systolic blood 2020-10-22 04:24:53 155 mm[Hg] [facility] pressure Diastolic blood 2020-10-22 04:24:53 78 mm[Hg] [facility] pressure Heart rate 2020-10-22 04:24:53 128 /min [facility] Body temperature 2020-10-22 04:24:53 36 Martina [facility] Respiratory rate 2020-10-22 04:24:53 20 /min [facility] Oxygen saturation in 2020-10-22 04:24:53 98 /min [facility] Arterial blood by Pulse oximetry Respiratory 2020-05-07 07:49:50 No respiratory distress /min 02 Sat by Pulse 2020-05-07 07:49:50 100 /min Oximetry Body Mass Index 2020-05-07 07:49:50 49.4 Height 2020-05-07 07:49:50 157.48\\S\\62 Pulse Rate 2020-05-07 07:49:50 87 /min Respiratory Rate 2020-05-07 07:49:50 18 /min Temperature 2020-05-07 07:49:50 37\\S\\98.6 Weight 2020-05-07 07:49:50 753434.939\\S\\4320 Respiratory 2020-05-05 23:26:04 No respiratory distress /min 02 Sat by Pulse 2020-05-05 23:26:04 100 /min Oximetry Body Mass Index 2020-05-05 23:26:04 49.4 Height 2020-05-05 23:26:04 157.48\\S\\62 Pulse Rate 2020-05-05 23:26:04 87 /min Respiratory Rate 2020-05-05 23:26:04 18 /min Temperature 2020-05-05 23:26:04 37\\S\\98.6 Weight 2020-05-05 23:26:04 109195.939\\S\\4320 Respiratory 2020-05-05 16:38:31 No respiratory distress /min 02 Sat by Pulse 2020-05-05 16:38:31 100 /min Oximetry Body Mass Index 2020-05-05 16:38:31 49.4 Height 2020-05-05 16:38:31 157.48\\S\\62 Pulse Rate 2020-05-05 16:38:31 152 /min Respiratory Rate 2020-05-05 16:38:31 20 /min Temperature 2020-05-05 16:38:31 37.2\\S\\99.0 Weight 2020-05-05 16:38:31 091575.939\\S\\4320 Respiratory 2020-05-05 14:24:00 No respiratory distress /min 02 Sat by Pulse 2020-05-05 14:24:00 100 /min Oximetry Body Mass Index 2020-05-05 14:24:00 49.4 Height 2020-05-05 14:24:00 157.48\\S\\62 Pulse Rate 2020-05-05 14:24:00 152 /min Respiratory Rate 2020-05-05 14:24:00 20 /min Temperature 2020-05-05 14:24:00 37.2\\S\\99.0 Weight 2020-05-05 14:24:00 424964.939\\S\\4320 02 Sat by Pulse 2020-05-05 13:30:25 100 /min Oximetry Body Mass Index 2020-05-05 13:30:25 49.4 Height 2020-05-05 13:30:25 157.48\\S\\62 Pulse Rate 2020-05-05 13:30:25 152 /min Respiratory Rate 2020-05-05 13:30:25 20 /min Temperature 2020-05-05 13:30:25 37.2\\S\\99.0 Weight 2020-05-05 13:30:25 524178.939\\S\\4320 02 Sat by Pulse 2020-05-05 13:17:41 100 /min Oximetry Body Mass Index 2020-05-05 13:17:41 49.4 Height 2020-05-05 13:17:41 157.48\\S\\62 Pulse Rate 2020-05-05 13:17:41 152 /min Respiratory Rate 2020-05-05 13:17:41 20 /min Temperature 2020-05-05 13:17:41 37.2\\S\\99.0 Weight 2020-05-05 13:17:41 379953.939\\S\\4320 02 Sat by Pulse 2020-05-05 13:15:39 100 /min Oximetry Body Mass Index 2020-05-05 13:15:39 49.4 Height 2020-05-05 13:15:39 157.48\\S\\62 Pulse Rate 2020-05-05 13:15:39 152 /min Respiratory Rate 2020-05-05 13:15:39 20 /min Temperature 2020-05-05 13:15:39 37.2\\S\\99.0 Weight 2020-05-05 13:15:39 000770.939\\S\\4320 WEIGHT 2020-05-05 13:11:00 122.671244 kg HEIGHT 2020-05-05 13:11:00 157.48 cm Procedures Procedure Date / Time Performing Clinician Source Performed CT ABDOMEN PELVIS W 2021-01-19 02:26:01 Wan Pacheco [facility] POCT TEST 2021-01-19 01:41:00 Wan Pacheco [facility] COMP. METABOLIC PANEL 2021-01-19 01:40:00 [facility] ([id number]) Medical Branch CBC WITH DIFF 2021-01-19 01:40:00 [facility] URINALYSIS 2021-01-19 01:40:00 [facility] CONSENT/REFUSAL FOR 2021-01-19 01:18:32 [facility] Name [facility] HC COMPLETE BLD COUNT 2020-10-22 05:09:00 David Hernandes [facility] W/AUTO DIFF URINALYSIS 2020-10-22 05:09:00 David Hernandes Ho spital COMPREHENSIVE METABOLIC 2020-10-22 05:09:00 David Hernandes [facility] PANEL LACTIC ACID, I-STAT 2020-10-22 05:09[facility]00 [facility], URINE 2020-10-22 05:09:00 David Hernandes [facility] SCREEN ESTIMATED GFR 2020-10-22 05:09:00 David Hernandes spital MR LUMBAR SPINE W WO 2020-08-29 04:41:29 Leah Doty [facility] CONTRAST [facility] POCT TEST 2020-08-29 04:39:00 Debbi Page [facility] CBC WITH DIFF 2020-08-29 03:06:00 [facility] WHOLE BLOOD 2020-08-29 03:06:00 Camilo [facility] COMP. METABOLIC PANEL 2020-08-29 02:50:[address] [facility] ([id number]) [facility] URINALYSIS 2020-08-29 02:50:00 [facility] COVID-19 (ID NOW RAPID 2020-08-28 23:34:00 Leah Doty [facility] TESTING) [facility] CONSENT/REFUSAL FOR 2020-08-28 18:48:13 Doctor Unassigned, [facility] ADC / LCC - DRUG SCREEN 2020-04-28 03:58:[address] [facility] BASIC METABOLIC PANEL 2020-04-28 03:03:00 Mary Bran [facility] (NA, K, CL, CO2, Medical Branch GLUCOSE, BUN, CREATININE, CA) CBC WITH DIFF 2020-04-28 03:03:00 Mary Bran [facility] URINALYSIS 2020-04-28 02:41:00 Mary Bran [facility] POCT TEST 2020-04-28 02:40:00 Mary Bran [facility] NOTICE OF PRIVACY 2020-04-28 02:22:34 Doctor Unassigned, No Univ [facility] PRACTICES Name [facility] CONSENT/REFUSAL FOR 2020-04-28 02:22:21 Doctor Unassigned, No Un [facility]REAT[facility] Name [facility] Plan of Care Planned Activity Planned Date Details Comments Source Future Scheduled Test COVID-19 VACCINE (1) [facility] [code = COVID-19 VACCINE (1)] Future Scheduled Test Hepatitis C screening [facility] (procedure) [code = 471087732] Future Scheduled Test Screening for [facility] malignant neoplasm of cervix (procedure) [code = 258460090] Future Scheduled Test INFLUENZA VACCINE [facility] [code = INFLUENZA VACCINE] Encounters Start End Encounter Admission Attending Care Care Encounter Source Date/Time Date/Time Type Type Clinicians Facility Department ID 2020-05-05 Inpatient [facility] [id number] [facility] 13:01:00 76 2020-04-24 Inpatient HCAKW ZEE [id number] [facility] 23:08:00 35062 [facility] 2020-01-18 Inpatient HCAPM ZEE [id number] [facility] 19:15:00 59343 [facility] 2020-01-15 Inpatient HCAKW ZEE [id number] [facility] 14:21:00 [id number] [facility] 2020-01-14 Inpatient HCAKW ZEE [id number] [facility] 22:47:00 63094 [facility] 2020-01-13 Inpatient HCAKW ZEE [id number] [facility] 17:51:00 23236 [facility] 2021-09-17 2021-09-17 Emergency EM Vu, HCATB HCATB [id number] [facility] 17:23:00 19:19:00 Christopher [id number] [facility] 2021-09-17 2021-09-17 Emergency EM Vu, HCATB ZEE [id number] [facility] 17:23:00 19:19:00 Christopher 62 [facility] 2021-01-18 2021-01-18 Emergency X , [facility] ERT [id number] Univers 20:26:00 22:38:00 WAN paz of [facility] 2021-01-18 2021-01-18 Emergency [facility] 1.2.344.034 [id number] Univers 20:26:00 22:38:00 Wan MENDOZA 350.1.13.10 i ty [facility] 4.2.7.2.686 [facility] [id number] [address] 2021-01-17 2021-01-17 Emergency ER Dickson, STLSJG STLSJG [id number] 17:05:00 20:00:00 Dennis -[id number] Luke [facility] 2021-01-08 2021-01-08 Emergency ER Eliza, STLSJX STLSJX [id number] STLSJX 12:37:00 12:37:00 Oli -[id number] 2020-11-25 2020-11-25 Emergency SEBASTIAN, [facility] 064 [id number] 40 [place] 00:00:00 00:00:00 MANOLO [address] 2020-10-22 2020-10-22 Travel 1.2.840.1 1.2.430.871 [id number] Methodi 00:00:00 00:00:[address] 3.430.2.7 0.2.7.3.698 [facility] .3.598911 084.8 l .8 2020-10-21 2020-10-22 Emergency NUSZEN, [facility] 064 [id number] 03 [place]ams 00:00:00 00:00:00 DAVID [address] 2020-08-28 2020-08-29 Emergency Aufderheide, Leah Yoselyn TRAUMA 1.2.840.114 [id number] 13:50:00 10:43:00 [facility] 350.1.13.10 Darron Jules 4.2.7.2.686 [id number] 014 2020-08-28 2020-08-29 Emergency [place]der[place]ide, Leah Yoselyn TRAUMA 1.2.840.114 [id number] Univers 13:50:00 10:43:[address] [facility] 350.1.13.10 ity of Darron Jules 4.2.7.[address] [place] [address] [id number] [facility] 014 Branch 2020-08-28 2020-08-28 Emergency X [facility] ERT [id number] Univers 13:42:00 13:42:00 ity [facility] 2020-04-27 2020-04-27 Emergency Bran, [facility] 1.2.840.114 [id number] 20:41:00 23:12:00 [facility] 350.1.13.10 [place] [address] [place] [address] [id number] 084 2020-04-27 2020-04-27 Emergency [facility], [facility] 1.2.840.114 [id number] Univers 20:41:00 23:12:00 Mary [place] 350.1.13.10 i ty of [place] 4.2.7.2.686 [facility] [id number] [place] [id number] Branch 2020-04-27 2020-04-27 Emergency X [facility] ERT [id number] Univers 20:23:00 20:23:00 ity [facility] 2020-04-27 2020-04-27 Orders Doctor GALVAN 1.2.840.114 [id number] 00:00:00 00:00:00 Only Unassigned, KEVYN 350.1.13.10 [place] [facility] 4.2.7.2.686 [id number] 009 2020-04-27 2020-04-27 Orders Doctor GALVAN 1.2.840.114 [id number] Univers 00:00:00 00:00:00 Only Unassigned, KEVYN 350.1.13.10 ity of [place] [facility] 4.2.7.2.686 [place] [id number] [place] [address] Branch 2020-01-18 2020-01-18 Outpatient LUCÍA KruseO Q833 [facility] 22:41:00 22:41:00 Anita [address] [facility] 2020-01-15 2020-01-17 Inpatient EM Bradly Sebastian [facility] Q833 [facility] 17:01:00 12:13:[address] [facility] Results Test Description Test Time Test Comments Results Result Comments Source - US RETRO LTD 2021-09-17 18:45:00 [facility] NATIVIDAD GREGG : 1995 Sex: F Lv coombs Name: NATIVIDAD GREGG Unit No: [id number] EXAMS: CPT: [id number] RETRO LTD 06384 COMPARISON: None CLINICAL HISTORY: Left flank pain FINDINGS: Both kidneys are normal in size, contour, and echogenicity. There is no kidney stone, cyst, or hydronephrosis. The right kidney measures 11.1 x 4.8 x 4.7 cm with a renal cortex measuring 1.0 cm. The left kidney measures 11.9 x 5.1 x 4.9 cm with a renal cortex measuring 0.7 cm. The urinary bladder is nondistended but appears grossly unremarkable. IMPRESSION: Normal renal sonogram. at 1845 Reported and signed by: Mu Cordoba MD CC: Johnathan Madrid MD, MD Technologist: Rashi Cordoba Probe: Trscr Dt/Tm: 09/17/2021 (1844) by:MistyHNN Orig Print D/T: S: 09/17/2021 (1847) BATCH NO: N/A Name: NATIVIDAD GREGG Phys: [id number] - VuJohnathan 605 [facility] : 1995 Age: 26 Sex: F Janes Alvarez Loc: TBasiaERS Exam Date: 09/17/2021 Status: REG ER PH: FAX: PAGE 1 Signed Report BASIC METABOLIC PANEL 2021-09-17 18:39:00 Test Item Value Reference Range Interpretation Comme nts SODIUM (test code = NA) 139 mmol/L 136-145 N POTASSIUM (test code = K) 3.7 mmol/L 3.4-4.5 N CHLORIDE (test code = CL) 114 mmol/L 98-107 H CARBON DIOXIDE (test code = 20 mmol/l 20-31 N CO2) GLUCOSE (test code = GLU) 87 mg/dL 74-106 N BLOOD UREA NITROGEN (test 7 mg/dL 9-23 L code = BUN) GLOMERULAR FILTRATION RATE >=60 max estimate >60 The estimated glomerular (test code = GFR) filtration rate is computed usingpatient ra ce, age (>18), sex, and serum creatinine. If anyof the needed data jeannette ments are missing the Lab oratory cannot compute an estimation of the glomerul ar filtration rate. CREATININE (test code = 0.54 mg/dL 0.55-1.02 L CREAT) CALCIUM (test code = CA) 10.2 mg/dL 8.6-10.3 N LIVER FUNCTION [id number] 18:39:00 Test Item Value Reference Range Interpretation Comments TOTAL PROTEIN (test code = PROT) 7.2 g/dL 5.7-8.2 N ALBUMIN (test code = ALB) 3.4 g/dl 3.4-5.0 N BILIRUBIN TOTAL (test code = 0.2 mg/dL 0.3-1.2 L BILT) BILIRUBIN DIRECT (test code = <0.1 mg/d/L 0.0-0.3 N BILD) BILIRUBIN INDIRECT (test code = 0.2 mg/dL 0.0-1.2 N BILIND) SGOT/AST (test code = AST) 23 U/L 0-34 N SGPT/ALT (test code = ALT) 25 U/L 10-49 N ALKALINE PHOSPHATASE (test code = 74 U/L 46-116 N ALKP) [id number] 18:39:00 Test Item Value Reference Range Interpretation Comments LIPASE (test code = LIP) 37 U/L 12-53 N UA RFLX MICR CULT IF [id number] 18:25:00 Test Item Value Reference Range Interpretation Comments UA COLOR (test code = Yellow YELLOW COLU) UA APPEARANCE (test TURBID CLEAR A code = APPU) UA GLUCOSE DIPSTICK NEG MG/DL NEGATIVE (test code = DGLUU) UA BILIRUBIN DIPSTICK NEG NEGATIVE (test code = BILU) UA KETONE DIPSTICK NEG MG/DL NEGATIVE (test code = KETU) UA SPECIFIC GRAVITY 1.020 1.000-1.030 (test code = SGU) UA BLOOD DIPSTICK 1+ NEGATIVE A (test code = CATHERINE) UA PH DIPSTICK (test 6.5 4.5-8.5 code = OG) UA PROTEIN DIPSTICK TRACE MG/DL NEGATIVE A (test code = PROU) UA UROBILINOGEN NORMAL EU/dL See_Comment [Automated message] DIPSTICK (test code = The sy stem which URO) generated this result transmit jose reference range : <=1.0. The refe rence range was not u sed to interpret th is result as normal/abnormal . UA NITRITE DIPSTICK NEG NEGATIVE (test code = EDVIN) UA LEUKOCYTE ESTERASE NEG NEGATIVE DIPSTICK (test code = LEUU) UA WBC (test code = 5-10 /HPF 0-3 A WBCU) UA RBC (test code = 40-50 /HPF 0-3 A RBCU) UA BACTERIA (test 1+ /HPF NONE SEEN A code = BACU) UA SQUAMOUS CELLS FEW /HPF NONE-FEW (test code = SQU) UA CALCIUM OXALATE RARE /HPF NONE SEEN A CRYSTALS (test code = CAOXU) UA MUCUS (test code = FEW /LPF NONE-FEW MUCU) Indication for culture: Flank PainSpecimen Description: CLEAN CATCHCBC W/AUTO [id number] 18:24:00 Test Item Value Reference Range Interpretation Comments WHITE BLOOD CELL (test code = 13.22 K/mm3 5.0-12.0 H WBC) RED BLOOD CELL (test code = RBC) 3.76 M/mm3 4.20-5.40 L HEMOGLOBIN (test code = HGB) 11.0 G/DL 12.0-16.0 L HEMATOCRIT (test code = HCT) 33.2 % 34.9-44.5 L MEAN CELL VOLUME (test code = 88 fL 81-99 N MCV) MEAN CELL HGB (test code = MCH) 29.3 PGM 27-31 N MEAN CELL HGB CONCENTRATION (test 33.1 G/DL 33-37 N code = MCHC) RED CELL DISTRIBUTION WIDTH (test 18.5 % 11.6-16.2 H code = RDW) PLATELET COUNT (test code = PLT) 358 K/mm3 130-400 N MEAN PLATELET VOLUME (test code = 10.0 fl 7.4-10.4 N MPV) NEUTROPHIL % (test code = NT%) 77.6 % 43-65 H IMMATURE GRANULOCYTE % (test code 0.6 % 0.0-2.0 N = IG%) LYMPHOCYTE % (test code = LY%) 15.2 % 20.5-45.5 L MONOCYTE % (test code = MO%) 4.8 % 5.5-11.7 L EOSINOPHIL % (test code = EO%) 1.5 % 0.9-2.9 N BASOPHIL % (test code = BA%) 0.3 % 0.2-1.0 N NUCLEATED RBC % (test code = 0.0 % 0-1.0 N NRBC%) NEUTROPHIL # (test code = NT#) 10.26 K/mm3 2.2-4.8 H LYMPHOCYTE # (test code = LY#) 2.01 K/mm3 1.3-2.9 N MONOCYTE # (test code = MO#) 0.63 K/mm3 0.3-0.8 N EOSINOPHIL # (test code = EO#) 0.20 K/MM3 0.0-0.2 N BASOPHIL # (test code = BA#) 0.04 K/mm3 0.0-0.1 N COMP. METABOLIC PANEL (56790)2021-01-19 01:59:14 Test Item Value Reference Range Interpretation Comments NA (test code = 140 mmol/L 135-145 9553590786) K (test code = 4.4 mmol/L 3.5-5.0 7898909335) CL (test code = 106 mmol/L 98-108 0903002303) CO2 TOTAL (test code 23 mmol/L 23-31 = 7379554180) AGAP (test code = 2-16 8718643262) BUN (test code = 9 mg/dL 7-23 0414686299) GLUCOSE (test code = 94 mg/dL 70-110 4087963004) CREATININE (test code 0.62 mg/dL 0.50-1.04 = 1138814934) TOTAL BILI (test code 0.3 mg/dL 0.1-1.1 = 0539390222) CALCIUM (test code = 9.8 mg/dL 8.6-10.6 8509717309) T PROTEIN (test code 7.8 g/dL 6.3-8.2 = 4048008102) ALBUMIN (test code = 4.6 g/dL 3.5-5.0 0457320625) ALK PHOS (test code = 97 U/L 34-122 6088757911) ALTv (test code = 19 U/L 5-35 1742-6) AST(SGOT) (test code 26 U/L 13-40 = 2240069472) eGFR (test code = mL/min/1.73m2 8672816339) AURORA (test code = AURORA) Association of Glomerular Filtration Rate (GFR) and Staging of Kidney Disease* + + +- +| GFR (mL/min/1.73 m2) ?| With Kidney Damage ?| ?Without Kidney Damage+ ------+ ----+ ------+| ?>90 ?| ?Stage one ?| ? Normal ?+ -+ + -+| ?60-89 ?| ?Stage two ?| ? Decreased GFR ? + + +- +| ?30-59 ?| ?Stage three ?| ? Stage three ? + + +- +| ?15-29 ?| ?Stage four ? | ? Stage four ?+ -+ + -+| ?<15 (or dialysis) ? ?| ?Stage five ? | ? Stage five ?+ -+ + -+ *Each stage assumes the associated GFR level [...] or urine or abnormalities in imaging tests). [facility] WITH [id number] 01:47:12 Test Item Value Reference Range Interpretation [...] (test code = 51.5 fL 39.0-49.9 H 83330-8) RDW-CV (test code = 17.4 % 12.0-15.5 H 788-0) PLT (test code = See_Comment H [Automated 777-3) message] The sy stem which generated this result transmitted reference range : 166 - 358 10*3/ ?L. The reference r edson was not used to interpret this result as normal/abnormal . MPV (test code = 9.3 fL 9.5-12.9 L 27917-1) NRBC/100 WBC (test See_Comment [Automat ed code = 3044742189) message] The system which generated this result transmitted reference range : 0.0 - 10.0 /100 WBCs. The refer ence range was not u sed to interpret th is result as normal/abnormal . NRBC x10^3 (test code <0.01 See_Comment [Auto mated = 4641409492) message] The s ystem which generated this result transmitted reference range : 10*3/?L. The reference range was not used to interpret this result as normal/abnormal . GRAN MAT (NEUT) % 59.5 % (test code = 770-8) IMM GRAN % (test code 0.30 % = 1345322000) LYMPH % (test code = 30.7 % 736-9) MONO % (test code = 5.7 % 5905-5) EOS % (test code = 3.3 % 713-8) BASO % (test code = 0.5 % 706-2) GRAN MAT x10^3(ANC) 5.88 10*3/uL 1.88-7.09 (test code = 4701387837) IMM GRAN x10^3 (test 0.03 10*3/uL 0.00-0.06 code = 8040661380) LYMPH x10^3 (test code 3.03 10*3/uL 1.32-3.29 = 731-0) MONO x10^3 (test code 0.56 10*3/uL 0.33-0.92 = 742-7) EOS x10^3 (test code = 0.33 10*3/uL 0.03-0.39 711-2) BASO x10^3 (test code 0.05 10*3/uL 0.01-0.07 = 704-7) Lab Interpretation Abnormal (test code = 22855-1) [facility] [id number] 01:41:00 Test Item Value Reference Range Interpretation Comments POCT PREG (test code = 1605) neg On board controls acceptable with yes C Line (test code = 3574) POCT PREG LOT # (test code = 3575) [id number] POCT PREG TEST DATE (test 03/15/2022 code = 3576) Lab Interpretation (test code = Normal 52291-4) [facility]2021-[facility] 18:14:00 Test Item Value Reference Range [...] = CREATT) Chemistry (test Greater than 90 Reference Range for code = EGFRMDRD) Estimated G FR: Greater than 90 mL/min/1.73 m2NOTE:The MDRD equation has no t been validated for use with theeld erly (over 70 years of age), women, patients with serious comorbi d condition or pe rsons with extremes o fbody size, muscle ma ss, or nutritional status. Chemistry (test 87 mg/dL 70-105 N code = GLU-T) Chemistry (test 9.4 mg/dL 7.8-10.44 N code = CA) Chemistry - [id number] 18:04:00 Test Item Value Reference Range Interpretation Comments Chemistry - Specials Negative NEGATIVE Method of sensitivity- (test code = BHCGST) Indeter minant: results should be repea jose after 48-72 hrs Positive: resul ts may be detected as early as 1 day after the first missed me nses. [id number] 17:55:00 Test Item Value Reference Range Interpretation [...] code = BASO#) 0.1 thou/uL 0.0-0.2 N [id number] 17:55:00 Test Item Value Reference Range Interpretation [...] Source: Urine VoidedMR LUMBAR SPINE W WO [id number] 13:40:15 Prior right L5-S1 laminectomy and apparent [...] paraspinal soft tissues tothe right of midline. Thi s fluid collection extends into the subcutaneousfat along [...] (transverse by AP) region of soft tissue e nhancement in the rightsubarticular zone, likely in the area of previous disc protrusionconsistent with postoperative granulation tissue. There is no mass effectupon the thecal sac. Spinal canal is patent. No significant neuralforaminal stenosis is identified. [facility], Radiant Results Inft User - 08/29/2020 8:41 AM CDT ORDERING PHYSICIAN:LEAH MCGEE AUFDERHEIDEHISTORY:Low back pain, infection suspected TECHNIQUE: Lumbar spine MRI pre and post IV contrastCOMPARISON: NoneFINDINGS:Lumbar vertebral bodies are normal in height. There is no subluxation. Theconus terminates at L1. The cauda equina is within normal limits.The patient is status post right laminectomy at L5-S1. There is a fluidcollection at the laminectomy site, within the paraspinal soft tissues tothe right of midline. This fluid collection extends into the subcutaneousfat along thesurgical approach. The collection measures 11.1 x 7.6 x 6.8cm (AP by craniocaudal by transverse). There is mild rim enhancement. Thismay represent a postoperative collection/seroma versus abscess.Thereis enhancement of several right-sided roots of the cauda equina.No intraspinal fluid collection or he matoma is identified.At T12-L1, L1-L2, L2-L3, L3-L4, L4-L5, [...] postoperative granulation tissue. There is no mass effectuponthe thecal sac. Spinal canal is patent. No significant neuralforaminal stenosis is identified.IMPRESSIONPrior right L5-S1 laminectomy and apparent microdiscectomy, as detailedabove.No significant canalor foraminal stenosis.Peripherally enhancing fluid collection at the laminectomy approachspanning the right paraspinal soft tissues (dorsal to the thecal sac) andsubcutaneous fat, possibly a seroma versus abscess.No abnormal intraspinal fluid collection or hematoma.Several right-sided nerve roots of the cauda equina demonstrateenhancement, likely postoperative.RL: 4700 [facility] [id number] 04:39:00 Test Item Value Reference Range Interpretation Comments POCT PREG (test code = 1605) negative On board controls acceptable with present C Line (test code = 3574) POCT PREG LOT # (test code = 3575) [id number] POCT PREG TEST DATE (test 02-12-22 code = 3576) Lab Interpretation (test code = Normal 38038-6) [facility]IS2021-06-16 03:30:07 Test Item Value Reference Range Interpretation Comments APPEARANCE (test code = Clear Clear 8863396817) COLOR (test code = Yellow Yellow 8027467533) PH (test code = 4.8-8.0 0877993671) SP GRAVITY (test code = 1.003-1.030 5437224189) GLU U QUAL (test code = Normal Normal 2323472096) BLOOD (test code = Negative Negative Interfere nce from 5175191578) ascorbic acid m ay cause false neg ative results. KETONES (test code = Negative Negative 6618830348) PROTEIN (test code = Negative Negative 2887-8) UROBILIN (test code = Normal Normal 1085543284) BILIRUBIN (test code = Negative Negative 8559255477) NITRITE (test code = Negative Negative 3540747313) LEUK GAETANO (test code = Negative Negative 9137266446) RBC/HPF (test code = See_Comment [Autom ated message] 6356044993) The system LaunchKey generated this result transmitted ref erence range: 0 - 3 HP F. The reference range was not used to int erpret this result as normal/abnormal . WBC/HPF (test code = See_Comment [Autom ated message] 0230505825) The system [employer]Key generated this result transmitted ref erence range: 0 - 5 HP F. The reference range was not used to int erpret this result as normal/abnormal . BACTERIA (test code = Negative Negative 9619656327) MUCOUS (test code = Slight Negative LPF A 6948459150) SQ EPITH (test code = See_Comment H [Auto mated message] 0219103384) The system [employer]Key generated this result transmitted ref erence range: <=2 HPF. The reference range was not used to int erpret this result as normal/abnormal . ASCORBIC ACID (test code 20 mg/dL = 3585349666) Lab Interpretation (test Abnormal code = 75144-0) [facility]. METABOLIC PANEL (14091)2020-08-29 03:19:20 Test Item Value Reference Range Interpretation Comments NA (test code = 139 mmol/L 135-145 6799772763) K (test code = 3.8 mmol/L 3.5-5.0 7447989086) CL (test code = 110 mmol/L 98-108 H 5362843599) CO2 TOTAL (test code = 18 mmol/L 23-31 L 4018084284) AGAP (test code = 2-16 1915396674) BUN (test code = 10 mg/dL 7-23 5670615822) GLUCOSE (test code = 95 mg/dL 70-110 7738112604) CREATININE (test code = 0.60 mg/dL 0.50-1.04 7628076219) TOTAL BILI (test code = 0.3 mg/dL 0.1-1.9 6693336431) CALCIUM (test code = 9.0 mg/dL 8.6-10.6 0057871379) T PROTEIN (test code = 7.0 g/dL 6.3-8.2 1175081019) ALBUMIN (test code = 4.2 g/dL 3.5-5.0 8878675665) ALK PHOS (test code = 67 U/L 34-122 8711687536) ALTv (test code = 24 U/L 5-35 1742-6) AST(SGOT) (test code = 30 U/L 13-40 8388013059) eGFR (test code = mL/min/1.73m2 7193165606) AURORA (test code = AURORA) Association of [...] tests). Lab Interpretation Abnormal (test code = 52053-9) [facility] HospitalL[facility] Acid Whole [id number] 03:19:05 Test Item Value Reference Range Interpretation Comments LACTIC ACID (test code = 1.35 mmol/L 0.50-2.20 1218663149) Lab Interpretation (test code = Normal 85166-4) [facility] WITH [id number] 03:17:59 Test Item Value Reference Range Interpretation Comments WBC (test code = See_Comment [Automated 1207-2) message] The sy stem which generated this result transmitted reference range : 4.30 - 11.10 10*3/?L. The reference range was not used to interpret this result as normal/abnormal . RBC (test code = See_Comment L [Automated 775-8) message] The sy stem which generated this [...] (test code = 53.7 fL 39.0-49.9 H 42696-8) RDW-CV (test code = 17.3 % 12.0-15.5 H 788-0) PLT (test code = See_Comment H [Automated 777-3) message] The sy stem which generated this result transmitted reference range : 166 - 358 10*3/ ?L. The reference r edson was not used to interpret this result as normal/abnormal . MPV (test code = 9.3 fL 9.5-12.9 L 98858-8) NRBC/100 WBC (test See_Comment [Automat ed code = 2553566911) message] The system which generated this result transmitted reference range : 0.0 - 10.0 /100 WBCs. The refer ence range was not u sed to interpret th is result as normal/abnormal . NRBC x10^3 (test code <0.01 See_Comment [Auto mated = 9203840495) message] The s ystem which generated this result transmitted reference range : 10*3/?L. The reference range was not used to interpret this result as normal/abnormal . GRAN MAT (NEUT) % 58.1 % (test code = 770-8) IMM GRAN % (test code 0.20 % = 3766539298) LYMPH % (test code = 29.0 % 736-9) MONO % (test code = 8.3 % 5905-5) EOS % (test code = 4.0 % 713-8) BASO % (test code = 0.4 % 706-2) GRAN MAT x10^3(ANC) 5.40 10*3/uL 1.88-7.09 (test code = 2329799163) IMM GRAN x10^3 (test <0.03 0.00-0.06 code = 2523665591) LYMPH x10^3 (test code 2.69 10*3/uL 1.32-3.29 = 731-0) MONO x10^3 (test code 0.77 10*3/uL 0.33-0.92 = 742-7) EOS x10^3 (test code = 0.37 10*3/uL 0.03-0.39 711-2) BASO x10^3 (test code 0.04 10*3/uL 0.01-0.07 = 704-7) Lab Interpretation Abnormal (test code = 84593-0) [facility] (ID NOW RAPID TESTING)2020-08-29 00:07:14 Test Item Value Reference Range Interpretation Comments SARS-CoV-2 Rapid ID NOW Not Detected Not Detected (test code = 85309-8) AURORA (test code = AURORA) ID NOW COVID-19 Assay is an isothermal nucleic acid amplification test intended for the qualitative detection of nucleic acid from SARS-CoV-2 viral RNA in nasopharyngeal ([employer]) specimens. It is used under Emergency Use [...] indicated. Lab Interpretation Normal (test code = 11121-5) [facility] [id number] 04:20:00 Test Item Value Reference Range Interpretation Comments BENZO U (test code = Negative Negative [id number]) DIVYA U (test code = Negative Negative [id number]) AMPHET (test code = Negative Negative [id number]) THC (test code = Negative Negative [id number]) METHADONE (test code = Negative Negative [id number]) Meth U (test code = Negative Negative 6485017279) OPIATES (test code = Presumptive Positive Negative A 5329274912) Cocaine Metabolite (test Negative Negative code = 4465295452) PROPOXY (test code = Negative Negative 9339790469) Tric U (test code = Negative Negative 9686580699) PCP (test code = Negative Negative 8497873257) OXYCOD (test code = Negative Negative 0782757156) AURORA (test code = AURORA) Urine Drug [...] testing). Lab Interpretation (test Abnormal code = 18826-1) [facility] Metabolic Panel (NA, K, CL, CO2, GLUCOSE, BUN, CREATININE, CA)2020-04-28 03:22:00 Test Item Value Reference Range Interpretation Comments NA (test code = 139 mmol/L 135-145 2121967081) K (test code = 4.4 mmol/L 3.5-5 1211972226) CL (test code = 105 mmol/L 98-108 6999304307) CO2 TOTAL (test code = 25 mmol/L 23-31 5707892989) AGAP (test code = 2-16 1342940766) BUN (test code = 11 mg/dL 7-23 9675039179) GLUCOSE (test code = 92 mg/dL 70-110 1167569376) CREATININE (test code 0.65 mg/dL 0.5-1.04 = 9313485857) CALCIUM (test code = 9.5 mg/dL 8.6-10.6 2761620336) eGFR Calculation mL/min/1.73m2 (Non-) (test code = 4104087714) eGFR Calculation mL/min/1.73m2 () (test code = 8632843060) AURORA (test code = AURORA) Association of [...] or urine or abnormalities in imaging tests). [facility] [id number] 03:17:00 Test Item Value Reference Range Interpretation Comments APPEARANCE (test code = Cloudy Clear A 2640655840) COLOR (test code = Yellow Yellow 8674115965) PH (test code = 4.8-8.0 3002001889) SP GRAVITY (test code = 1.003-1.030 9673896789) GLU U QUAL (test code = Normal Normal 4334936640) BLOOD (test code = Negative Negative 0769240792) KETONES (test code = Negative Negative 9137590396) PROTEIN (test code = Negative Negative 2887-8) UROBILIN (test code = Normal Normal 3211389114) BILIRUBIN (test code = Negative Negative 2874322279) NITRITE (test code = Negative Negative 0710766184) LEUK GAETANO (test code = Negative Negative 0455334598) RBC/HPF (test code = <1 See_Comment [Autom ated message] 6441699687) The system LaunchKey generated this result transmitted ref erence range: 0 - 3 HP F. The reference range was not used to int erpret this result as normal/abnormal . WBC/HPF (test code = See_Comment [Autom ated message] 6613654098) The system LaunchKey generated this result transmitted ref erence range: 0 - 5 HP F. The reference range was not used to int erpret this result as normal/abnormal . BACTERIA (test code = Many Negative A 4062201397) MUCOUS (test code = Slight Negative LPF A 9154756822) AMORPHOUS (test code = Moderate Rare HPF A 9551259907) SQ EPITH (test code = HPF 4673492501) WBC CLUMPS (test code = See_Comment H [Au tomated message] 9859586315) The system LaunchKey generated this result transmitted ref erence range: <=1 HPF. The reference range was not used to int erpret this result as normal/abnormal . YEAST BUD (test code = See_Comment H [Aut omated message] 1058645700) The system LaunchKey generated this result transmitted ref erence range: <=1 HPF. The reference range was not used to int erpret this result as normal/abnormal . Lab Interpretation (test Abnormal code = 47106-7) [facility] with [id number] 03:11:00 Test Item Value Reference Range Interpretation Comments WBC (test code = See_Comment [Automated 0790-2) message] The sy stem which generated this [...] RDW-SD (test code = 47.8 fL 39-49.9 33140-6) RDW-CV (test code = 15.2 % 12-15.5 788-0) PLT (test code = See_Comment H [Automated 777-3) message] The sy stem which generated this result transmitted reference range : 166 - 358 10*3/ ?L. The reference r edson was not used to interpret this result as normal/abnormal . MPV (test code = 9.7 fL 9.5-12.9 65743-9) NRBC/100 WBC (test See_Comment [Automat ed code = 9646205825) message] The system which generated this result transmitted reference range : 0.0 - 10.0 /100 WBCs. The refer ence range was not u sed to interpret th is result as normal/abnormal . NRBC x10^3 (test code <0.01 See_Comment [Auto mated = 9547665408) message] The s ystem which generated this result transmitted reference range : 10*3/?L. The reference range was not used to interpret this result as normal/abnormal . GRAN MAT (NEUT) % 70.3 % (test code = 770-8) IMM GRAN % (test code 0.50 % = 1961199035) LYMPH % (test code = 21.0 % 736-9) MONO % (test code = 5.2 % 5905-5) EOS % (test code = 2.4 % 713-8) BASO % (test code = 0.6 % 706-2) GRAN MAT x10^3(ANC) 7.03 10*3/uL 1.88-7.09 (test code = 4139668216) IMM GRAN x10^3 (test 0.05 10*3/uL 0-0.06 code = 7602475305) LYMPH x10^3 (test code 2.10 10*3/uL 1.32-3.29 = 731-0) MONO x10^3 (test code 0.52 10*3/uL 0.33-0.92 = 742-7) EOS x10^3 (test code = 0.24 10*3/uL 0.03-0.39 711-2) BASO x10^3 (test code 0.06 10*3/uL 0.01-0.07 = 704-7) Lab Interpretation Abnormal (test code = 27148-0) [id number] Test Item Value Reference Range Interpretation Comments POCT PREG (test code = 1605) Negative On board controls acceptable with Present C Line (test code = 3574) POCT PREG LOT # (test code = HCG 7908157 3575) POCT PREG TEST DATE (test 12/13/2021 code = 3576) Lab Interpretation (test code = Normal 71242-3) [facility] HospitalLAMA[facility] [id number] 02:52:00 Test Item Value Reference Range Interpretation Comments LACTIC ACID (test code = LACT) 1.0 mmol/L 0.7-2.0 N COMPREHENSIVE METABOLIC [id number] 02:28:00 Test Item Value Reference Range Interpretation [...] bias m ay occur for patients ta acrlos Eltrombopag(a b one marrow stimulan t used [...] = ALKP) UA RFLX MICR CULT IF [id number] 01:22:00 Test Item Value Reference Range Interpretation [...] HPF = WBCUR) PYURIA ABSENT URINE CULTURE N OT INDICATED [Automated message] The system which generated [...] URINE: CLEAN CATCHUA RFLX MICR CULT IF [id number] 01:19:00 Test Item Value Reference Range Interpretation [...] HPF = WBCUR) PYURIA ABSENT URINE CULTURE N OT INDICATED [Automated message] The system which generated [...] AURORA Love C.LAB.MG, on , @ 0052. [id number] 00:50:00 Test Item Value Reference Range Interpretation Comments LIPASE (test code = LIP) 54 U/L 23-300 N CBC W/AUTO [id number] 00:49:00 Test Item Value Reference Range Interpretation [...] 0.04 x10 3/uL 0.0-0.1 N - RETRO [id number] 00:16:00 [facility] WOODName: NATIVIDAD GREGG : 1995 Sex: F Bittinger: ANDREZ St: REG -- Name: NATIVIDAD GREGGwood : 1995 Age/S: 24/F [address] Unit #: [id number] Loc: [place] [address] Phys: Luis Goddard NP Acct: [id number] Dis Date: Status: REG ER PHONE #: [phone] Exam Date: 04/24/2020 0005 FAX #: [phone] Reason: left flank pain EXAMS: CPT CODE: [id number] US RETRO LTD 17520 EXAM: - US RETRO LTD LOCATION: H57 HISTORY: 24 years-year old Female with leftflank pain TECHNIQUE: Grayscale B-mode and color Doppler sonographic images of the kidneys were performed. COMPARISON: None available FINDINGS: The right kidney measures 10.8 x 4.6 x 4.5 cm with normal echogenicity. No hydronephrosis or nephrolithiasis. No focal lesions. The left kidney measures 11.3x 5 x 5.4 cm with normal echogenicity. No hydronephrosis. A punctate nonobstructing stone is seen inthe left kidney. No focal lesions. IMPRESSION: A punctate nonobstructing stone is seen in the left kidney. at 0016 Reported and signed by:Leonel Delacruz MD CC: Technologist: Francine Jimenez RDNY RVT Trnscrd Date/Time/By: 04/25/2020 (0016): By: [email or web address] PAGE 1 Signed Report Bittinger: St: REG Name: NATIVIDAD GREGG : 1995 Age/S: 24/[address] Unit #: [id number] Loc: [place] [address] Phys: Luis Goddard [employer] Acct: [id number] Dis Date: Status: REG ER PHONE #: [phone] Exam Date: 04/24/2020 0005 FAX #: [phone] Reason: left flank pain EXAMS: CPT CODE: [id number] US RETRO LTD 77488 <Continued> Orig Print D/T: S: 04/25/2020 (0019) PAGE 2 Signed ReportCOVID 19 INHOUSE [id number] 21:16:00 Test Item Value Reference Range Interpretation Comments COVID 19 INHOUSE AG NEGATIVE Negative Per manu facturer, (test code = negative result s should [id number]) be treated aspr esumptive and, if inconsi stent with clinical signs andsymptoms or necessary for patient man agement, should betested with an alternative mol ecular assay. Negative resultsdo not preclude SA RS-CoV-2 infection and s hould not be usedas the s ole basis for patient man agement decisions. Nega tive results should be considered in t he context of apatient's r ecent exposures, hist ory, presence of cli nicalsigns and symptoms co nsistent with COVID-19. - XR CHEST 1 [id number] 20:44:00 [facility] : 1995 Sex: F Name: NATIVIDAD GREGG [facility] : 1995 Age/S: 24 / F [address] [place] Unit #: [id number] Loc: [place] [address] Phys: Anita Kruse MD Acct: [id number] Dis Date: Status: REG ER PHONE #: [phone] Exam Date: 01/18/20202023 FAX #: Reason: Code Sepsis EXAMS: CPT: [id number] XR CHEST 1 V 21044 Fluoro Time: DAP (Gy m2): Air Kerma [...] x-ray without evidence for acute infiltrates or effusions. at 2043 Reported and signed by: Twan Evans M.D. CC: Anita Kruse MD PAGE 1 Signed Report Name: NATIVIDAD GREGG [facility] : 1995 Age/S: 24 / F [address] [place] Unit #: [id number] Loc: [place] [address] Phys: Anita Kruse MD Acct: [id number] Dis Date: Status: REG ER PHONE #: [phone] Exam Date: 01/18/20202023 FAX #: Reason: Code Sepsis EXAMS: CPT: [id number] XR CHEST 1 V 13734 Fluoro Time: DAP (Gy m2): Air Kerma (mGy): <Continued> Technologist: Brandi Clark RT(R)(CT) Trnscb Date/Time: 01/18/2020 (2043) [email or web address] Orig Print D/T: S: 01/18/2020 (2047) PAGE 2 Signed ReportUA RFLX MICR CULT IF [id number] 20:17:00 Test Item Value Reference Range Interpretation [...] culture: Suprapubic PainUA RFLX MICR CULT IF [id number] 20:13:00 Test Item Value Reference Range Interpretation [...] UACULT) Indication for culture: Suprapubic PainBASIC METABOLIC [id number] 20:13:00 Test Item Value Reference Range Interpretation [...] 8.5-10.1 N Completed by Nursing: NOHEPATIC FUNCTION [id number] 20:13:00 Test Item Value Reference Range Interpretation [...] N code = ALKP) Completed by Nursing: [id number] 20:13:00 Test Item Value Reference Range Interpretation [...] jesse yby method. Completed by Nursing: NOLACTIC [id number] 20:13:00 Test Item Value Reference Range Interpretation Comments LACTIC ACID (test code = LACT) 1.8 mmol/L 0.4-2.0 N CBC W/AUTO [id number] 19:57:00 Test Item Value Reference Range Interpretation [...] NO DIFF/SCN CRITERIA = MDIFF) BASIC METABOLIC [id number] 07:22:00 Test Item Value Reference Range Interpretation [...] 8.7 mg/dL 8.4-10.2 N CA) CBC W/AUTO [id number] 07:03:00 Test Item Value Reference Range Interpretation [...] 0.05 x10 3/uL 0.0-0.1 N BASIC METABOLIC [id number] 05:56:00 Test Item Value Reference Range Interpretation [...] 8.4 mg/dL 8.4-10.2 N CA) CBC W/AUTO [id number] 05:42:00 Test Item Value Reference Range Interpretation [...] code = LDLC) CORONARY RISK FACTOR 4.10 CHOL/H DL RISK MALE: (test code = RISK) 1/2 AVG 3 .43 FEMALE: 1/2 AVG 3.27 AV G 4.97 AVG 4.44 2X AVG 9.55 2X AVG 7.05 3X AVG 23.39 3X AVG 11.04~~~~~~~~~~ ~~~~~ ~~~~~~~~~~~~~~~ ~~~~~ ~~~~~~~~~~~~~~~ ~~~~~ ~~~~~National Cholesterol Education (NCEP ) Guidelines:~~~~ ~~~~~ ~~~~~~~~~~~~~~~ ~~~~~ ~~~~~~~~~~~~~~~ ~~~~~ ~~~~~~~~~~~ H DL Cholesterol<4 0mg/d L: HDL Choleste rol (Major risk fac tor for CHD)>60mg/d L: HDL Cholesterol (Negative risk factor for CHD)40-59mg/dL: Borderline Risk LDL Cholesterol<1 00mg/ dL: Desirable L DL-C bvekaxvaniluc14 0-159 mg/dL: Borderli ne High Risk LDL-C wobgkyzdpkvwo30 0-189 mg/dL: High ris k LDL-C concentra [...] code = LDLC) CORONARY RISK FACTOR 4.10 CHOL/ HDL RISK MALE: (test code = RISK) 1/2 AVG 3 .43 FEMALE: 1/2 AVG 3.27 AV G 4.97 AVG 4.44 2X AVG 9.55 2X AVG 7.05 3X AVG 23.39 3X AVG 11.04~~~~~~~~~~ ~~~~~~~ ~~~~~~~~~~~~~~~ ~~~~~~~ ~~~~~~~~~~~~~~~ ~~~~~~N ational Cholest shubham Education (NCEP ) Guidelines:~~~~ ~~~~~~~ ~~~~~~~~~~~~~~~ ~~~~~~~ ~~~~~~~~~~~~~~~ ~~~~~~~ ~~~~~ HDL Cholesterol<4 0mg/dL: HDL Cholesterol (Major risk factor for CHD)>60mg/dL: H DL Cholesterol (Ne gative risk factor for CHD)40-59mg/dL: Borderline Risk LDL Cholesterol<1 00mg/dL : Desirable LDL -C zcnjctjeqqvet57 0-159mg /dL: Borderline High Risk LDL-C lpokrjdzanhhp52 0-189mg /dL: High risk LDL-C concentration H DL-LDL Cholesterol is affected by a n umber of factors such as smoking, age an d sex.~~~~~~~~~~~ ~~~~~~~ ~~~~~~~~~~~~~~~ ~~~~~~~ ~~~~~~~~~~~~~~~ ~~~~~ LACTIC [id number] 17:52:00 Test Item Value Reference Range Interpretation Comments LACTIC ACID (test code = LACT) 1.6 mmol/L 0.7-2.0 N Coronavirus 2018 nCoV [id number] 17:03:00 Test Item Value Reference Range Interpretation Comments Coronavirus 2018 Negative NEGATIVE This test h as been nCoV Bedside (test authorize d by FDA under code = [id number]) an EUA for use byauthorized laboratories; T his test has been author ized only for the detecti on ofnucleic acid from SARS-CoV-2, not for any other viruses orpathogens; an d This test is only au thorized for the duratio n of thedeclaration that circumstances e xist justifying theauthorizatio n of emergency use o f in vitro diagnostic test sfor detection and/o r diagnosis of CO VID-19 under Eeowvke18 4(b)(1) of the Act, 21 U.S .C. 360bbb-3(b)(1), unless theauthorizatio n is terminated or r evoked sooner. LACTIC [id number] 16:44:00 Test Item Value Reference Range Interpretation Comments LACTIC ACID (test 2.1 mmol/L 0.7-2.0 HH Critical V alue reported code = LACT) toFirst Name:UTE [id number] Last Name:CHEL JUNG [employer] BACK AND [employer] C.LAB.LAS1, on 01/15/20, @ 164 4. UA RFLX MICR CULT IF [id number] 16:42:00 Test Item Value Reference Range Interpretation [...] HPF = WBCUR) PYURIA PRESENT URINE CULTURE PROCESSED UA RBC (test code = 11-20 /HPF <4-5 A RBCU) UA BACTERIA (test Rare /HPF None-Rare code = BACU) UA SQUAMOUS CELLS >25 (MANY) /HPF 0-5 (RARE) A (test code = SQU) UA MUCUS (test code = 4+ /LPF <Rare A MUCU) Indication for culture: Dysuria/FrequencySOURCE OF URINE: CLEAN CATCHLACTIC ACID 2020-01-15 15:54:00 Test Item Value Reference Range Interpretation Comments LACTIC ACID (test 2.6 mmol/L 0.7-2.0 HH Critical V alue reported code = LACT) toFirst Name:MO I8356 Last Name:CHEL JUNG [employer] C.LAB.LAS1, on 01/15/20, @ 155 4. BASIC METABOLIC [id number] 15:50:00 Test Item Value Reference Range Interpretation [...] 9.6 mg/dL 8.4-10.2 N CA) LIVER FUNCTION [id number] 15:50:00 Test Item Value Reference Range Interpretation [...] U/L 38-126 N (test code = ALKP) [id number] 15:50:00 Test Item Value Reference Range Interpretation Comments LIPASE (test code = LIP) 47 U/L 23-300 N PROTHROMBIN [id number] 15:50:00 Test Item Value Reference Range Interpretation Comments PROTHROMBIN TIME 11.7 SECONDS 9.2-12.1 N PATIENT (test code = PTP) INTERNATIONAL NORMAL 1.1 The INR is to be used RATIO (test code = only for monitoring INR) ORAL ANTICOAGULANTTH ERAPY. Indication INR Value1. Prophylaxis/gwyn atment of: Venous Thro mbosis, Pulmonary Embol ism 2.0 - 3.02. Prevent ion of systemic emboli sm from: Tissue he art valves 2.0 - 3. 0 Acute myocardial infa rction (to present sys temic embolism)* 2.0 - 3.0 Valvular heart disease 2.0 - 3.0 Atria l fibrillation 2. 0 - 3.03. Mechanica l prosthetic valv es (high risk) 2.5 - 3.5 * If oral anticoagulant t herapy is elected to preventrecurren t myocardial infa rction, an INR of 2.5-3 .5 isrecommended, consistent with Food and Drug Administrationr ecommen dations. THROMBOPLASTIN TIME [id number] 15:50:00 Test Item Value Reference Range Interpretation Comments THROMBOPLASTIN TIME 31.8 SECONDS 23.4-37.0 N Therape utic Range PARTIAL (test code = for Hep katherine PTT) EFFECTIVE Heparin IU/mL a PTT Seconds0.3 64.3 0.7 88.8 BASIC METABOLIC [id number] 15:49:00 Test Item Value Reference Range Interpretation [...] 9.6 mg/dL 8.4-10.2 N CA) LIVER FUNCTION [id number] 15:49:00 Test Item Value Reference Range Interpretation [...] U/L 38-126 N (test code = ALKP) [id number] 15:49:00 Test Item Value Reference Range Interpretation Comments LIPASE (test code = LIP) U/L 23-300 CBC W/AUTO [id number] 15:30:00 Test Item Value Reference Range Interpretation [...] 3/uL 0.0-0.1 N - XR CHEST 1 [id number] 15:03:00 [facility] 1995 Sex: F Bittinger: ANDREZ St: DIS -- Name: CRISTINONATIVIDAD BUSTAMANTE [facility] : 1995 Age/S: 24/F [address] Unit #: [id number] Loc: C[address] [place] [address] Phys: Mason Schofield Acct: [id number] Dis Date: [id number] Status: DIS IN PHONE #: [phone] Exam Date: 01/15/202003/2019 FAX #: [phone] Reason: CODE SEPSIS EXAMS: CPT CODE: [id number] XR CHEST 1 V 97917 EXAM: Portable chest x-ray, one view INDICATION: CODE SEPSIS kidney pain, diagnosed with kidney stone LOCATION CODE: C3 COMPARISON: None TECHNIQUE: Single Portable AP upright view of the chest DISCUSSION: Moderate increased bilateral perihilar marking is seen. Peribronc hial thickening is noted. Interstitial thickening bilaterally are noted. Heart and mediastinal contours unremarkable. No pneumothorax or pleural effusion seen. Osseous structures are within normal limit. IMPRESSION: 1. Interstitial thickening suggest bronchitis and/or viral pneumonitis. at 1503 Reported and signed by: Mu Vallejo M.D. CC: Technologist: HARJEET CASE; STUDENT 2ND YEAR Trnmnrd Date/Time/By: 01/15/2020 (7051) : By: Jaydon PAGE 1 Signed Report Bittinger: St: DIS Name: NATIVIDAD GREGG [facility] : 1995 Age/S: 24/F [address] Unit #:[id number] Loc: [address] [place] [address] Phys: Masno Schofield Acct: [id number] Dis Date: [id number] Status: DIS IN PHONE #: [phone] Exam Date: 01/15/2020 1450 FAX #: [phone] Reason: CODE SEPSIS EXAMS: CPT CODE: [id number] XR CHEST 1 V 01356 <Continued> Orig Print D/T: S: 01/15/2020 (3851) PAGE 2 Signed Report- XR CHEST 1 [id number] 15:03:00 [facility] : 1995 Sex: F Bittinger: St: PRE -- Name: NATIVIDAD GREGG [facility] : 1995 Age/S: 24/F [address] Unit #: [id number] Loc: [place] [address] Phys: Mason Schofield Acct: [id number] Dis Date: Status: PRE ER PHONE #: [phone] Exam Date: 01/15/2020 1450 FAX #: [phone] Reason: CODE SEPSIS EXAMS: CPT CODE: [id number] XR CHEST 1 V 99229 EXAM: Portable chest x-ray, one view INDICATION: [...] Interstitial thickening suggest bronchitis and/or viral pneumonitis. Electronically Signedby Padmini Vallejo on 01/15/2020 at 1507 Reported and signed by: Mu Vallejo M.D. CC: Technologist: MANPREET COSBY; STUDENT 2ND YEAR Trnmnrd Date/Time/By: 01/15/2020 (4091) : By: t.SDR.HPD PAGE 1 SignedReport Bittinger: St: PRE --- Name: NATIVIDAD GREGG : 1995 Age/S: 24/F [address] Unit #: [id number] Loc: [place] [address] Phys: Mason Schofield Acct: [id number] Dis Date: Status: PRE ER PHONE #: [phone] Exam Date: 01/15/2020 1450 FAX #: [phone] Reason: CODE SEPSIS EXAMS: CPT CODE: [id number] XR CHEST 1 V 28276 <Continued> Orig Print D/T: S: 01/15/2020 (1507) PAGE 2 Signed ReportLACTIC [id number] 01:50:00 Test Item Value Reference Range Interpretation Comments LACTIC ACID (test code = LACT) 1.2 mmol/L 0.7-2.0 N COMPREHENSIVE METABOLIC [id number] 00:45:00 Test Item Value Reference Range Interpretation [...] N (test code = ALKP) HCG SERUM [id number] 00:45:00 Test Item Value Reference Range Interpretation Comments HCG SERUM QUAL (test code = HCGQL) NEGATIVE NEGATIVE LACTIC [id number] 00:13:00 Test Item Value Reference Range Interpretation Comments LACTIC ACID (test 2.3 mmol/L 0.7-2.0 HH Critical V alue reported code = LACT) toFirst Name: K9646 Last Name:CHEL JUNG READ BACK AND [employer] DELCID.WR, on , @ 0013. UA RFLX MICR CULT IF [id number] 00:06:00 Test Item Value Reference Range Interpretation [...] HPF = WBCUR) PYURIA PRESENT URINE CULTURE PROCESSED UA RBC (test code = 11-20 /HPF <4-5 A RBCU) UA BACTERIA (test None /HPF None-Rare code = BACU) UA SQUAMOUS CELLS >25 (MANY) /HPF 0-5 (RARE) A (test code = SQU) UA MUCUS (test code = Rare /LPF <Rare A MUCU) Indication for culture: Dysuria/FrequencySOURCE OF URINE: CLEAN CATCH COMPREHENSIVE METABOLIC [id number] 23:43:00 Test Item Value Reference Range Interpretation [...] N (test code = ALKP) HCG SERUM [id number] 23:43:00 Test Item Value Reference Range Interpretation Comments HCG SERUM QUAL (test code = HCGQL) NEGATIVE CBC W/AUTO [id number] 23:38:00 Test Item Value Reference Range Interpretation [...] BA#) 0.06 x10 3/uL 0.0-0.1 N LACTIC [id number] 19:19:00 Test Item Value Reference Range Interpretation Comments LACTIC ACID (test code = LACT) 1.6 mmol/L 0.7-2.0 N UA RFLX MICR CULT IF [id number] 18:41:00 Test Item Value Reference Range Interpretation [...] HPF = WBCUR) PYURIA ABSENT URINE CULTURE N OT INDICATED UA RBC (test code = 0-3 [...] Flank PainSOURCE OF URINE: CLEAN CATCHBASIC METABOLIC [id number] 18:39:00 Test Item Value Reference Range Interpretation [...] 10.0 mg/dL 8.4-10.2 N CA) LIVER FUNCTION [id number] 18:39:00 Test Item Value Reference Range Interpretation [...] U/L 38-126 N (test code = ALKP) [id number] 18:39:00 Test Item Value Reference Range Interpretation Comments LIPASE (test code = LIP) 81 U/L 23-300 N BASIC METABOLIC [id number] 18:37:00 Test Item Value Reference Range Interpretation [...] 10.0 mg/dL 8.4-10.2 N CA) LIVER FUNCTION [id number] 18:37:00 Test Item Value Reference Range Interpretation [...] U/L 38-126 N (test code = ALKP) [id number] 18:37:00 Test Item Value Reference Range Interpretation Comments LIPASE (test code = LIP) U/L 23-300 - CT ABD PELVIS W/O [id number] 18:36:00 [facility] WOODName: NATIVIDAD GREGG : 1995 Sex: F FAX: Mayelin Santos [phone] Bittinger: ANDREZ St: PRE Name: [facility] GRE[facility] [place] [facility] 1995 Age/S: 24/F [address] Unit: [id number] Loc: [place] [address] Phys: Mayelin Tyler NP Acct: [id number] Dis Date: Status: PRE ER PHONE #: [phone] Exam Date: 01/13/2020 1820 FAX #: [phone] Reason: flank pain EXAMS: CPT CODE: [id number] CT ABD PELVIS W/O CONT 15706 Examination: Abdomen and pelvic CT without contrast Location code: S17 Comparison: Abdomen and pelvic CT July 22, 2012 Technique: Axial noncontrast contiguous images were obtained through the abdomen and pelvis followed by coronal and sagittal reformations. All CT scans are performed using radiation do se reduction technique. Technical factors are evaluated and adjusted to insure appropriate moderation of exposure. Automated dose management technology is applied to adjust the radiation dose to minimize exposure while achieving a diagnostic quality image. Discussion: Clinical history is remarkable for flank pain. Lung bases are clear. Heart is normal in size. Evaluation is limited by the lack of contrast media. Liver appears normal, gallbladder is absent. Spleen, pancreas, and [...] 1 Signed Report (CONTINUED) FAX: Mayelin Santos [phone] Bittinger: St: PRE--- Name: NATIVIDAD GREGG : 1995 Age/S: 24/F [address] Unit: [id number] Loc: [place] [address] Phys: Mayelin Tyler NP Acct: [id number] Dis Date: Status: PRE ER PHONE #: [phone] Exam Date: 01/13/2020 1820 FAX #: [phone] Reason: flank pain EXAMS: CPT CODE: [id number] CT ABD PELVIS W/O CONT 78842 <Continued> CC: Mayelin Tyler NP Technologist: Rosa Savage Trnscrd Dt/Tm: 01/13/2020 (1835) Chris.JH12 Orig Print D/T: S: 01/13/2020 (1838 PAGE 2 Signed ReportUA RFLX MICR CULT IF [id number] 18:33:00 Test Item Value Reference Range Interpretation [...] Flank PainSOURCE OF URINE: CLEAN CATCHCBC W/AUTO DIFF 2020-01-13 18:19:00 Test Item Value Reference Range Interpretation [...] 0.08 x10 3/uL 0.0-0.[address] [facility]SA[facility] : 1995 [facility] Pt Name: NATIVIDAD GREGG [address] [facility] [place]: [place] [address] : 1995 Age: 25 SEX:[id number] [phone] Exam Date: 01/17/21 Status: REG ER Acct: [id number] Loc: [facility]NAN[facility] Pt Unit #: [id number] Report #: [id number] CC: Dennis Forman DO CAT SCAN REPORT Order # Category/Exam [id number] CT/CT Stone Protocol ([id number]): . Results CT ABDOMEN NONCONTRAST CT PELVIS NONCONTRAST: (Urolithiasis protocol) DATE: 01/17/2021 HISTORY: Left flank pain [...] spine: Vertebral body heights are maintained. No high-grade central spinal canal stenosis. IMPRESSION: 1. Bilateral nephrolithiasis consisting of multipletiny bilateral renal calculi. 2. No obstructive uropathy Reported By: Juan Pablo Arnold MD Electronically Signed Date/Time: 01/17/21 183 Technologist: BOBBY Dictated Date/Time: 01/17/21 1829 Transcribed Date/Time:
[2021-10-20 13:53] LABS: Urine Blood Trace-intact (Negative); Urine Glucose Negative (Negative); Urine Protein Trace (Negative); Urine Specific Gravity 1.025 (1.005-1.030)
[2021-10-20] MEDS ORDERED: NA CHLORIDE 0.9% 2,000 ML ONE (14:00)
[2021-10-20] MEDS ORDERED: Magnesium Sulfate 2gm IVPB 2 G/50 ML BAG IV ONE (14:00)
[2021-10-20] MEDS ORDERED: CEFTRIAXONE 1000 MG/VIAL ONE (14:00)
[2021-10-20 14:12] LABS: Urine Bacteria 20-50 /HPF (<20); Urine RBC <5 /HPF (None Seen)
[2021-10-20 14:13] LABS: Urine Mucus 1+ /HPF (None Seen)
[2021-10-20 14:21] LABS: Hematocrit 31.2 % (36.0-45.0); Lymphocytes % 15.5 % (15.3-44.8); MCV 86.2 fL (80-100); MPV 8.2 fL (7.6-11.3); RBC Red Blood Cell Count 3.62 M/uL (3.86-4.86)
[2021-10-20] MEDS ORDERED: HYDROMORPHONE HCL 0.5 MG/0.5 ML INJ ONE (14:34)
[2021-10-20] MEDS ORDERED: ONDANSETRON 4 MG/2 ML VIAL ONE (14:34)
[2021-10-20 14:36] LABS: ALT/SGPT 34 U/L (12-78); AST/SGOT 21 U/L (15-37); Albumin 2.8 g/dL (3.4-5.0); Alkaline Phosphatase 100 U/L (45-117); BUN Blood Urea Nitrogen 5 mg/dL (7-18); Bicarbonate 22 mmol/L (21-32); Bilirubin Total 0.1 mg/dL (0.2-1.0); Glomerular Filtration Rate 131 ml/min (=/>90); Glucose Level 102 mg/dL (74-106); Potassium 3.1 mmol/L (3.5-5.1); Sodium Level 138 mmol/L (136-145)
[2021-10-20 15:01] LABS: Bilirubin Direct < 0.1 mg/dL (0-0.2)
[2021-10-20] MEDS ORDERED: POTASSIUM CL SA 10 MEQ TAB PO ONE (15:24)
--- NOTE | 2021-10-20 16:09 | EDPHYS ---
Physician Documentation [facility] Name: Ana Lilia Kline Age: 26 yrs Sex: Female : 1995 Arrival Date: 10/20/2021 Time: 12:58 Bed 25 Private MD: ED Physician Alexandro Bagley HPI: 10/20 13:31 This 26 yrs old Female presents to ER via Ambulatory with complaints of Possible Kidney snw Stone - 28 wks preg. 13:32 The patient has experienced similar episodes in the past, stent to right kidney in the snw past. 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 - Social history:: Smoking status: Patient denies any tobacco usage or history of. ROS: 13:30 Constitutional: Negative for fever, chills, and weight loss, Eyes: Negative for injury, snw pain, redness, and discharge, ENT: Negative for injury, pain, and discharge, Neck: Negative for injury, pain, and swelling, Cardiovascular: Negative for chest pain, palpitations, and edema, Respiratory: Negative for shortness of breath, cough, wheezing, and pleuritic chest pain, Abdomen/GI: Negative for abdominal pain, nausea, vomiting, diarrhea, and constipation. 13:30 MS/Extremity: Negative for injury and deformity, Skin: Negative for injury, rash, and discoloration, Neuro: Negative for headache, weakness, numbness, tingling, and seizure, Psych: Negative for depression, anxiety, suicide ideation, homicidal ideation, and hallucinations. 13:30 Back: Positive for pain with movement, flank pain, on the left. 13:30 : Positive for urinary symptoms. 13:31 Abdomen/GI: Positive for + 28wk, + movement, no vaginal bleeding, no snw vaginal discharge. Exam: 13:28 Head/Face: Normocephalic, atraumatic. Eyes: Pupils equal round and reactive to light, snw extra-ocular motions intact. Lids and lashes normal. Conjunctiva and sclera are non-icteric and not injected. Cornea within normal limits. Periorbital areas with no swelling, redness, or edema. ENT: Nares patent. No nasal discharge, no septal abnormalities noted. Tympanic membranes are normal and external auditory canals are clear. Oropharynx with no redness, swelling, or masses, exudates, or evidence of obstruction, uvula midline. Mucous membranes moist. Neck: Trachea midline, no thyromegaly or masses palpated, and no cervical lymphadenopathy. Supple, full range of motion without nuchal rigidity, or vertebral point tenderness. No Meningismus. Chest/axilla: Normal chest wall appearance and motion. Nontender with no deformity. No lesions are appreciated. 13:28 Respiratory: Lungs have equal breath sounds bilaterally, clear to auscultation and percussion. No rales, rhonchi or wheezes noted. No increased work of breathing, no retractions or nasal flaring. 13:28 Back: No spinal tenderness. No costovertebral tenderness. Full range of motion. left flank pain, dx with ureteral punctate stone with infection 3 days ago in [place]. On Keflex 13:28 MS/ Extremity: Pulses equal, no cyanosis. Neurovascular intact. Full, normal range of motion. Neuro: Awake and alert, GCS 15, oriented to person, place, time, and situation. Cranial nerves II-XII grossly intact. Motor strength 5/5 in all extremities. Sensory grossly intact. Cerebellar exam normal. Normal gait. Psych: Awake, alert, with orientation to person, place and time. Behavior, mood, and affect are within normal limits. 13:28 Constitutional: The patient appears alert, awake, anxious, restless. 13:28 Cardiovascular: Rate: tachycardic, Rhythm: regular, Heart sounds: normal. 13:28 Abdomen/GI: Inspection: abdomen appears normal, gravid appearance, Bowel sounds: normal, Palpation: abdomen is soft and non-tender, in all quadrants. 13:28 Skin: Appearance: normal except for affected area, diaphoresis is noted. Vital Signs: 13:09 Pulse 125; Resp 18; Temp 98.5(O); Pulse Ox 100% on R/A; Weight 108.86 kg; Height 5 ft. iw 2 in. (157.48 cm); Pain 9/10; 14:57 BP 110 / 83; Pulse 104; Resp 18; Pulse Ox 100% on R/A; Pain 6/10; iw 15:18 BP 118 / 58; Pulse 93; Resp 20; Pulse Ox 98% on R/A; perez 15:20 Pulse 98; iw 13:09 Body Mass Index 43.90 (108.86 kg, 157.48 cm) iw MDM: 13:21 Patient medically screened. snw 16:09 Data reviewed: vital signs, nurses notes. Data interpreted: Pulse oximetry: on room air snw is 98 %. Interpretation: normal. Counseling: I had a detailed discussion with the patient and/or guardian regarding: the historical points, exam findings, and any diagnostic results supporting the discharge/admit diagnosis, lab results, the need for outpatient follow up, for definitive care. Response to treatment: the patient's symptoms have mildly improved after treatment. 10/20 13:21 Order name: CBC with Diff; Complete Time: 14:25 snw 10/20 13:21 Order name: Chem 7; Complete Time: 15:14 snw 10/20 13:21 Order name: LFT's; Complete Time: 15:14 snw 10/20 13:21 Order name: Urine Microscopic Only; Complete Time: 14:15 snw 10/20 13:21 Order name: Urine Culture snw 10/20 13:32 Order name: Calcium; Complete Time: 15:14 snw 10/20 13:32 Order name: Pth,Intact; Complete Time: 15:14 snw 10/20 13:54 Order name: Urine Dipstick-Ancillary; Complete Time: 14:02 EDMS 10/20 14:48 Order name: Vital Signs; Complete Time: 14:58 snw Administered Medications: 14:08 Drug: NS 0.9% 1000 ml Route: IV; Rate: 125 ml/hr; Site: left antecubital; perez 14:08 Drug: Magnesium Sulfate 1 grams Route: IVPB; Infused Over: 1 hrs; Site: left perez antecubital; 14:08 Drug: Rocephin (cefTRIAXone) 2 grams Route: IV; Rate: calculated rate; Site: left perez antecubital; 14:09 Drug: NS 0.9% 1000 ml Route: IV; Rate: 1000 ml; Site: left antecubital; perez 14:10 Drug: Zofran (Ondansetron) 4 mg Route: IVP; Site: left antecubital; perez 14:58 Follow up: Response: No adverse reaction perez 14:10 Drug: Dilaudid (HYDROmorphone) 0.5 mg Route: IVP; Site: left antecubital; perez 14:58 Follow up: Response: No adverse reaction perez 15:17 Drug: Potassium Chloride 40 mEq Route: PO; perez 15:17 Follow up: Response: No adverse reaction perez 16:23 Drug: Dilaudid (HYDROmorphone) 1 mg Route: IM; Site: right gluteus; perez Disposition Summary: 10/20/21 16:08 Discharge Ordered Location: Home snw Condition: Stable snw Diagnosis - Infections of other parts of urinary tract in , second trimester snw - Pain, unspecified snw Followup: snw - With: Private Physician - When: 1 - 2 days - Reason: Recheck today's complaints, Continuance of care, Re-evaluation by your physician Discharge Instructions: - Discharge Summary Sheet snw - and Urinary Tract Infection snw - Dietary Guidelines to Help Prevent Kidney Stones snw - Rehydration, Adult snw - Urine Culture and Sensitivity Testing snw Forms: - Medication Reconciliation Form snw - Thank You Letter snw - Antibiotic Education snw - Prescription Opioid Use snw Prescriptions: - Magnesium (oxide/AA chelate) - take 400 milligram by ORAL route At bedtime; 30 tablet; Refills: 0, Product snw Selection Permitted - Augmentin 500-125 mg Oral Tablet - take 1 tablet by ORAL route every 8 hours for 10 days; 30 tablet; Refills: 0, snw Product Selection Permitted - promethazine 25 mg Oral Tablet - take 1 tablet by ORAL route every 6 hours As needed; 20 tablet; Refills: 0, snw Product Selection Permitted - Tylenol-Codeine #3 300 mg-30 mg Oral - take 1 tablet by ORAL route every 8-10 hours; 4 tablet; Refills: 0, Product snw Selection Permitted Signatures: Dispatcher [employer] Amaya Schultz FNP-C FNP-Csnw Annalee Feliciano RN RN Vy Mandel RN RN perez
--- NOTE | 2021-10-20 16:09 | ER ---
Nurse's Notes [facility] Name: Ana Lilia Kline Age: 26 yrs Sex: Female : 1995 Arrival Date: 10/20/2021 Time: 12:58 Bed 25 Private MD: Diagnosis: Infections of other parts of urinary tract in , second trimester;Pain, unspecified Presentation: 10/20 13:09 Chief complaint: Patient states: Thursday morning I was diagnosed with kidney stone on iw left side, has been on tylenol and keflex,I am 28 weeks , has hx of kidney stones and stent placed in past, is from [place], also has left flank pain. Coronavirus screen: At this time, the client does not indicate any symptoms associated with coronavirus-19. Ebola Screen: Patient negative for fever greater than or equal to 101.5 degrees Fahrenheit, and additional compatible Ebola Virus Disease symptoms Patient denies exposure to infectious person. Patient denies travel to an Ebola-affected area in the 21 days before illness onset. No symptoms or risks identified at this time. Initial Sepsis Screen: Does the patient meet any 2 criteria? No. Patient's initial sepsis screen is negative. Does the patient have a suspected source of infection? No. Patient's initial sepsis screen is negative. Risk Assessment: Do you want to hurt yourself or someone else? Patient reports no desire to harm self or others. Onset of symptoms was October 20, 2021. 13:09 Method Of Arrival: Ambulatory iw 13:09 Acuity: KATY 3 iw Triage Assessment: 15:18 General: Appears uncomfortable, Behavior is agitated, anxious. Pain: Complains of pain perez in back and abdomen. GI: Reports nausea, Pain is 10 out of 10 on a pain scale. vomiting. 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 - Social history:: Smoking status: Patient denies any tobacco usage or history of. Screenin:58 Abuse screen: Denies threats or abuse. Denies injuries from another. Nutritional iw screening: No deficits noted. Tuberculosis screening: No symptoms or risk factors identified. Fall Risk IV access (20 points). Assessment: 14:58 Reassessment: Patient appears in no apparent distress at this time. Patient and/or iw family updated on plan of care and expected duration. Pain level reassessed. Patient is alert, oriented x 3, equal unlabored respirations, skin warm/dry/pink. Patient states feeling better. Patient states symptoms have improved. 16:28 GI: Bowel sounds present X 4 quads. Abd is soft and non tender. perez Vital Signs: 13:09 Pulse 125; Resp 18; Temp 98.5(O); Pulse Ox 100% on R/A; Weight 108.86 kg; Height 5 ft. iw 2 in. (157.48 cm); Pain 9/10; 14:57 BP 110 / 83; Pulse 104; Resp 18; Pulse Ox 100% on R/A; Pain 6/10; iw 15:18 BP 118 / 58; Pulse 93; Resp 20; Pulse Ox 98% on R/A; perez 15:20 Pulse 98; iw 13:09 Body Mass Index 43.90 (108.86 kg, 157.48 cm) iw ED Course: 12:58 Patient arrived in ED. am2 13:11 Triage completed. iw 13:13 Arm band placed on. iw 13:19 Amaya Longoria FNP-C is PHCP. snw 13:19 Alexandro Bagley MD is Attending Physician. snw 13:47 Vy Mandel, CIARRA is Primary Nurse. perez 13:53 Urine Culture Sent. mb7 13:53 Urine Microscopic Only Sent. mb7 16:28 No provider procedures requiring assistance completed. Inserted saline lock: 20 gauge perez in left antecubital area, using aseptic technique. 16:29 Patient has correct armband on for positive identification. Bed in low position. perez 16:29 IV discontinued, intact, Pressure dressing applied. perez Administered Medications: 14:08 Drug: NS 0.9% 1000 ml Route: IV; Rate: 125 ml/hr; Site: left antecubital; perez 14:08 Drug: Magnesium Sulfate 1 grams Route: IVPB; Infused Over: 1 hrs; Site: left perez antecubital; 14:08 Drug: Rocephin (cefTRIAXone) 2 grams Route: IV; Rate: calculated rate; Site: left perez antecubital; 14:09 Drug: NS 0.9% 1000 ml Route: IV; Rate: 1000 ml; Site: left antecubital; perez 14:10 Drug: Zofran (Ondansetron) 4 mg Route: IVP; Site: left antecubital; perez 14:58 Follow up: Response: No adverse reaction perez 14:10 Drug: Dilaudid (HYDROmorphone) 0.5 mg Route: IVP; Site: left antecubital; perez 14:58 Follow up: Response: No adverse reaction perez 15:17 Drug: Potassium Chloride 40 mEq Route: PO; perez 15:17 Follow up: Response: No adverse reaction perez 16:23 Drug: Dilaudid (HYDROmorphone) 1 mg Route: IM; Site: right gluteus; perez Medication: 16:28 VIS not applicable for this client. perez Outcome: 16:08 Discharge ordered by MD. soriano 16:28 Discharged to home ambulatory. perez 16:28 Condition: good 16:28 Discharge instructions given to patient, Prescriptions given X 3. 16:29 Patient left the ED. perez Signatures: Amaya Longoria, MEDICAL ASST-C MEDICAL ASST-Csnw Annalee Feliciano, RN RN Nataliia Vargas amDella Francis mb7 Vy Mandel RN RN Corrections: (The following items were deleted from the chart) 13:14 13:09 Pulse 125bpm; Resp 18bpm; Pulse Ox 100% RA; 108.86 kg; Height 5 ft. 2 in.; BMI: iw 43.9; Pain 9/10; iw 13:41 13:41 Rocephin (cefTRIAXone) 2 grams IV at calculated rate in left antecubital perez perez
[2021-10-20] MEDS ORDERED: HYDROMORPHONE HCL 1 MG/ML INJ ONE (16:31)
[2021-10-20 16:48] VITALS: TEMP 98.5
[2021-10-20 17:06] VITALS: BP 118/58; O2SAT 98
== END 2021-10-20 16:29 | disposition home or self-care (01) ==
LOC: ER 12:57
DX: O23.33 Infections of other parts of urinary tract in pregnancy, third trimester (principal); Z3A.28 28 weeks gestation of pregnancy; Z88.1 Allergy status to other antibiotic agents; Z88.5 Allergy status to narcotic agent; Z88.8 Allergy status to other drugs, medicaments and biological substances
CPT/HCPCS: 87088; 85025; 87086; 80048; 36415; 82310; 80076; 83970; 96375; 96372; 96374; 99284; J3475; J1170 ×2; J7030; J2405; 81003; 81015

== ENCOUNTER 2022-04-11 17:56 | Emergency (ER) | payer OTHER ==
--- OUTSIDE RECORDS SUMMARY | 2022-04-11 18:08 | XMS REPORT | Continuity of Care Document ---
:1995 Author Organization [facility] t Address [address] [place] [address] Care Team Providers Name Role Phone Provider, Unknown Primary Care Physician Unavailable Johnathan Madrid Attending Clinician Unavailable WAN PACHECO Attending Clinician Unavailable Wan Pacheco DO Attending Clinician Dennis Forman Attending Clinician Unavailable Oli Kay Attending Clinician Unavailable MANOLO CORTES Attending Clinician Unavailable DAVID HERNANDES Attending Clinician Unavailable Soren BECKFORD, Leah Topete Attending Clinician [phone] Paulina Patterson DO Attending Clinician Jorge A BECKFORD, Darron Gooden Attending Clinician Mary Harmon Attending Clinician Doctor Unassigned, Tina Attending Clinician Unavailable Anita Kruse Attending Clinician Unavailable Bradly Sebastian Attending Clinician Unavailable Physician, No Primary or Family Admitting Clinician Unavaila ble Referred, Self Admitting Clinician Unavailable MICA MAYA Admitting Clinician Unavailable WAN PACHECO Admitting Clinician Unavailable Bradly Sebastian Admitting Clinician Unavailable Payers Payer Name Policy Type Policy Number Effective Date Expiration Date S charles [facility] [id number] 2017 00:00:00 [place]ID [place] [id number] 2018 00:00:00 Problems Condition Condition Condition Status Onset Resolution Last Treating Co mments Source Name Details Category Date Date Treatment Clinician Date Preeclamps Preeclamps Disease Active 2015-03 U nivers ia ia 2-04 ity of 00:00: [address] Preeclamps Preeclamps Disease Active 2015-03 U nivers ia, third ia, third 2-03 [place] of [place] [facility] Acute Acute Disease Active 2015-03 Univers headache headache 2-02 ity of 00:00: [address] Branch Papilledem Papilledem Disease Active 2015-03 U nivers a a 2-02 ity of 00:00: [address] 36 weeks 36 weeks Disease Active 2015-03 Unive rs gestation gestation 1-29 ity of of of 00:00: [place] 00 [facility] 26 weeks 26 weeks Disease Active Unive rs gestation gestation 9-20 ity of of of 00:00: [place] 00 [facility] Hematuria Hematuria Disease Active Uni vers 9-20 ity of 00:00: [place] [address] Medical [place] Lower Lower Disease Active Univers abdominal abdominal 9-20 ity of pain pain 00:00: [address] Nausea and Nausea and Disease Active U nivers vomiting vomiting 9-06 ity of during during 00:00: [place] 00 [facility] Diarrhea Diarrhea Disease Active 2016-0 Unive rs 9-06 ity of 00:00: [place] 00 [facility] Dehydratio Dehydratio Disease Active 2016-0 U nivers n n 9-06 ity of 00:00: [place] 00 [facility] Pseudotumo Pseudotumo Disease Active 2016-0 U nivers r cerebri r cerebri 9-06 ity of 00:00: [place] 00 [facility] 24 weeks 24 weeks Disease Active 2016-0 Unive rs gestation gestation 9-06 ity of of of 00:00: [place] 00 [facility] Epigastric Epigastric Disease Active 2016-0 U nivers abdominal abdominal 9-06 ity of pain pain 00:00: [place] 00 [facility] Gastroente Gastroente Disease Active 2016-0 U nivers ritis ritis 9-06 ity of 00:00: [place] 00 [facility] Headache Headache Disease Active 2015-0 Unive rs 8-20 ity of 00:00: [place] 00 [facility] Blurry Blurry Disease Active 2015-0 Univers vision, vision, 8-20 [place] of bilateral bilateral [place] 21 weeks 21 weeks Disease Active 2015-0 Unive rs gestation gestation 8-20 ity of of of 00:00: [place] 00 [facility] Allergies, Adverse Reactions, Alerts Allergy Allergy Status Severity Reaction(s) Onset Inactive Treating Comm ents Source Name Type Date Date Clinician No Known DA Active U [facility] Allergie [address] [place] s 00:00: [facility] 00 are Umpire Unable DA Active U [facility] to 2-20 Assess 00:00: 00 doxycycl DA Active [place] 2020- [facility] ine 03-16[facility]o [facility]: d [facility] azithrom DA Active [place] 2020- [facility] ycin 03-16 [place] 00:00: d 00 [facility] doxycycl DA Active [place] HIVES, RASH 2020- [facility] ine 03-16w 00:00: d 00 [facility] azithrom DA Active [place] HIVES, RASH 2020- [facility] ycin 03-16 Kingw 00:00: d 00 [facility] metoclop DA Active U 2019- [facility] ramide 03-16 Kingw 00:00: d 00 [facility] Center metoclop DA Active U MUSCLE SPASM 2019- HC [facility] Azithrom Propensi Active Anaphylaxis 2020-0 M ethodi ycin ty to [address] [facility] adverse 00:00: Hospita reaction 00 l s to drug Doxycycl Propensi Active GI 2019-0 Method i ine ty to Intolerance [address] adverse 00:00: Hospita reaction 00 l s to drug Ketorola Propensi Active Hives 2019-0 Method i c ty to [address] [facility] adverse 00:00: Hospita reaction 00 l s to drug KETOROLA DRUG Active Hives 2018-0 Univers C INGREDI 16 ity of 00:00: [place] 00 [facility] Ketorola Propensi Active Hives 2018-0 Univer s c ty to 16 ity of adverse 00:00: [place] reaction 00 [facility] doxycycl DA Active SV [facility] ine 2-09 Clear 00:00: Ng 00 [facility] doxycycl DA Active SV THROAT [facility] ine CLOSES 2- Clear 00:00: Ng 00 [facility] Doxycycl Drug Active Shortness Of [address] [facility]e Allergy Breath 1-17 [facility] 00:[facility]: Medical [address] [place] [address] Azithrom Drug [place] [address] [facility] [address] ycin Allergy Breath 1-17 [facility] 00:[facility]: Medical [address] [place] [address] IODINE DRUG Active Swelling 2015-03 Univers INGREDI 2-03 ity of 00:00: [place] 00 [facility] Iodine Propensi Active Swelling 2015-03 Univer s ty to 2- ity of adverse 00:00: [place] reaction 00 [facility] DOXYCYCL DRUG Active Anxiety 2014-03 Univers INE INGREDI 2- ity of 00:00: [place] 00 [facility] AZITHROM DRUG Active Swelling 2014-03 Univer s YCIN INGREDI 2-23 ity of 00:00: [place] 00 Medical [place] Doxycycl Propensi Active Anxiety 2014-03 Unive rs ine ty to 2- ity of adverse 00:00: [place] reaction 00 [facility] Azithrom Propensi Active Swelling 2014-03 Univ ers ycin ty to 2-23 ity of adverse 00:00: [place] reaction 00 [facility] azithrom DA Active SV [facility] ycin 5-09 Clear 00:00: Ng 00 [facility] azithrom DA Active SV NEOLLS 2012-0 [facility] ycin - Clear 00:00: Ng 00 [facility] Social History Social Habit Start Date Stop Date Quantity Comments Source History of tobacco Cigarette Smoker [facility] Exposure to Not sure University of SARS-CoV-2 (event) [facility] History SDOH [facility] Alcohol Std Drinks Hospit al History SDOH [facility] Binge [facility] Tobacco use and 2020-10-21 2020-10-21 Never used [facility] exposure 00:00:00 00:00:00 Hospital History SDOH 2020-10-21 2020-10-21 1 [facility] Alcohol Frequency 00:00:00 00:00:00 Hospita l Cigarettes smoked 2020-10-21 2020-10-[address] current (pack per 00:00:00 00:00:00 Hospita l day) - Reported Cigarette 2020-10-21 2020-10-21 [facility] pack-years 00:00:00 00:00:00 Hospital Alcohol intake 2016-04-01 2016-04-[address] [facility] 00:00:00 00:00:00 non-drinker of Medical Ce nter alcohol (finding) Tobacco Comment 2015-11-03 2015-11-03 currently Universit y of 00:00:00 00:00:00 smoking [facility] Sex Ass[birth year] At [birth year] ZOYA Noland 00:00:00 00:00:00 [facility] Center Smoking Status Start Date Stop Date Source Unknown if ever smoked [facility] Former smoker 2020-10-21 00:00:00 2020-10-21 [facility]00[facility] Current every day 2016-04-01 00:00:[address] [facility] Medical smoker Center Medications Ordered Filled Start [...] ity of mg 03:15: 02:15 ONCE, 1 [place] 00 :00 dose, On Medical Fri Branch 01/18/21 at 2215, STAT iohexol 2020-03- No [id number] 120mL 120 mL, Univers (OMNIPAQUE 03-21 Intravenou it y of 350 02:30: 02:21 s, ONCE, 1 [place] BULK-100 00 :00 dose, On Medical mL) Fri Branch injection 01/18/21 at 120 mL 2130, Routine NaCl 0.9% 2020-03- No 1000mL at 999 Uni vers (NS) bolus 03-21 mL/hr, ity of infusion 02:30: 03:10 1,000 mL, [place] as 1,000 mL 00 :00 IV Medical Piggyback, Branch ONCE, 1 dose, On Thu01/18/21 at 2130, STAT ondansetron 2020-03- No 4mg 4 mg, Slow Univers (ZOFRAN 03-21 IV Push, ity of (PF)) 01:30: 01:45 ONCE, 1 [place] injection 4 00 :00 dose, On Medi nirmala mg Thu Branch 01/18/21 at 2030, Routine morpHINE 2020-03 Yes 4mg 4 mg, Slow Uni vers injection 4 03-21 IV Push, ity of mg 01:26: Q4HPRN, [place] 41 Starting Medical on Thu Branch 01/18/21 at 2026, Until Discontinu ed, Routine, Pain (scale 7-10) [place]aminoph [place] [id number] 1{tbl} Q4H Take 1 M ethodi en-codeine 9-[address] (TYLENOL 21:14: mouth Hospita WITH 44 every 4 l CODEINE #3) (four) 300-30 mg hours as per tablet needed for moderate pain .acute pain. cyclobenzap Yes 5mg Q.[id number] Take 5 mg Methodi rine 11-[id number] (FLEXERIL) 20:58: 3D (three) Hosp greyson 5 mg tablet 31 times a l day as needed for muscle spasms. gabapentin Yes 600mg Q.[id number] Take 600 Methodi (NEURONTIN) 11-25 [id number] mg by s t 600 mg 20:57: 3D mouth 3 Hospita tablet 50 (three) l times a day. DULoxetine Yes 60mg QD Take 60 mg M ethodi (CYMBALTA) 11-[address] 60 MG 20:57: daily. Hospita capsule 50 l HYDROcodone 2020- No 1{tbl} 1 tablet, Univers -acetaminop 08-29 Oral, ity of hen (NORCO 16:15: 15:21 ONCE, 1 [place] as 5) 5-325 mg 00 :00 dose, Wed Med ical tablet 08/29/20 at [facility] tablet 1115, NIKITA FENTanyl PF 2020- No 50ug 50 mcg, Un martin (SUBLIMAZE 08-29 Slow IV ity o f (PF)) 15:45: 14:46 Push, [place] injection 00 :00 ONCE, 1 Medical 50 mcg dose, Wed Branch 08/29/20 at 1045, STAT FENTanyl PF 2020- No 50ug 50 mcg, Un martin (SUBLIMAZE 08-29 Slow IV ity o f (PF)) 10:15: 09:14 Push, [place] injection 00 :00 ONCE, 1 Medical 50 mcg dose, Wed Branch 08/29/20 at 0515, Routine HYDROcodone 2020- No 1{tbl} 1 tablet, Univers -acetaminop 08-29 Oral, ity of hen (NORCO 06:00: 05:06 ONCE, 1 [place] as 5) 5-325 mg 00 :00 dose, Thu Med ical tablet 08/29/20 at [facility] tablet 0100, NIKITA gadoteridol 2020- No [id number] .2mL/kg 24.4 mL Univers (PROHANCE-2 08-29 (0.2 mL/kg i ty of 0 mL) 04:45: 04:30 ?122 kg), [place] injection 00 :00 Intravenou Medi nirmala 24.4 mL s, ONCE, 1 Branch dose, 08/28/20 at 2345, Routine FENTanyl PF No 50ug 50 mcg, Un martin (SUBLIMAZE 08-29 Slow IV ity o f (PF)) 03:15: 02:29 Push, [place] injection 00 :00 ONCE, 1 Medical 50 mcg dose, Branch 08/28/20 at 2215, Routine morpHINE 2020- [...] ONCE, 1 Medica l NaCl 0.9% dose, [facility] h (NS) 100 mL 08/28/20 at MINI-BAG [...] :00 ONCE, 1 Medical 50 mcg dose, [facility] Branch 08/28/20 at 1700, Routine ondansetron 2020- No 4mg 4 mg, Slow Univers (ZOFRAN 6-15 06-15 IV Push, ity of (PF)) 19:16: 21:12 ONCE, 1 [place] injection 4 00 :00 dose, Tue Med ical mg 08/28/20 at Branch 1430, NIKITA morpHINE 2020-2020- No 4mg 4 mg, Slow Un martin injection 4 08-28-15 IV Push, ity of mg 19:16: 21:11 ONCE, 1 [place] 00 :00 dose, Tue Medical 08/28/20 at Branch 1430, STAT diphenhydrA 2020- No 25mg 25 mg, Uni vers MINE 04-28 Oral, ity of (BENADRYL) 05:30: 04:44 ONCE, 1 [place] as tablet 25 00 :00 dose, Fri Medic al mg 04/27/20 at Branch 2330, NIKITA ondansetron 2020- No 4mg 4 mg, Slow Univers (ZOFRAN 04-28 IV Push, ity of (PF)) 04:00: 04:00 ONCE, 1 [place] injection 4 00 :00 dose, Fri Med ical mg 04/27/20 at Branch 2200, NIKITA morpHINE 2020- No 4mg 4 mg, Slow Un martin injection 4 04-28 IV Push, ity of mg 04:00: 03:03 ONCE, 1 [place] 00 :00 dose, Fri Medical 04/27/20 at Branch 2200, STAT acetaminoph 2020- No 1{tbl} 1 tablet, Univers en-codeine 04-28 Oral, ity of (TYLENOL 03:45: 04:43 ONCE, 1 [place] #3) 300-30 00 :00 dose, Fri Medi nirmala mg tablet 1 04/27/20 at Br anch tablet 2145, NIKITA NaCl 0.9% 2020- No 1000mL at 999 Uni vers (NS) bolus 04-28 mL/hr, ity of infusion 03:00: 05:12 1,000 mL, [place] as 1,000 mL 00 :00 IV Medical Infusion, [place] ONCE, 1 dose, 04/27/20 at 2100, NIKITA HYDROcodone 2019-0 Yes [id number] 1{tbl} Take 1 Univers -acetaminop 6-17 tablet by ity of hen (NORCO) 00:00: mouth [place] 10-325 mg 00 every 6 Medical tablet (six) Branch hours as needed for Pain (scale 7-10). HYDROcodone Yes [id number] 1{tbl} Take 1 Univers -acetaminop 6-17 tablet by ity of hen (NORCO) 00:00: mouth [place] 10-325 mg 00 every 6 Medical tablet (six) Branch hours as needed for Pain (scale 7-10). HYDROcodone Yes [id number] 1{tbl} Take 1 Univers -acetaminop 6-17 tablet by ity of hen (NORCO) 00:00: mouth [place] 10-325 mg 00 every 6 Medical tablet (six) Branch hours as needed for Pain (scale 7-10). HYDROcodone Yes [id number] 1{tbl} Take 1 Univers -acetaminop 6-17 tablet [...] 4-6) for up to 10 doses. ACETAZOLAMI 0 Yes Take by [facility] 21:52: [address] ACETAZOLAMI 0 Yes Take by [facility]-17 [facility] 21:52: [address] ACETAZOLAMI [address] Yes Take by [facility] 1-17 [facility]. [facility] 21:52: [address] Nitrofurant 2015-03 Yes 100mg Take 1 [...] Branch hours as needed for Alternate with [place] for pain scale 1-3. tamsulosin 2015-03 Yes [...] Branch hours as needed for Alternate with [place] for pain scale 1-3. tamsulosin 2015-03 Yes [...] Branch hours as needed for Alternate with [place] for pain scale 1-3. tamsulosin 2015-03 Yes [...] Branch hours as needed for Alternate with [place] for pain scale 1-3. tamsulosin 2015-03 Yes [...] Source Heart rate 2021-01-19 03:10:00 120 /min [facility] Systolic blood 2021-01-19 03:00:00 134 [facility]Hg[facility] Diastolic blood 2021-01-19 03:00:00 90 mm[Hg] [facility] Respiratory rate 2021-01-19 03:00:00 20 /min [facility] Oxygen saturation in 2021-01-19 03:00:00 97 /min [facility] Arterial blood by [facility] Pulse oximetry Branch Body temperature 2021-01-19 01:23:00 37.11 Martina Univ ersity of [place] [facility] Body height 2021-01-19 01:23:00 157.5 cm Universi ty [facility] [place] [facility] Body weight 2021-01-19 01:23:00 117.935 kg [facility] ty [facility] [place] [facility] BMI 2021-01-19 01:23:00 47.55 kg/m2 [facility] ty [facility] [place] [facility] Systolic blood 2020-08-29 15:23:00 132 mm[Hg] Univer sity of pressure [place] [facility] Diastolic blood 2020-08-29 15:23:00 82 mm[Hg] Unive rsity of pressure [place] [facility] Heart rate 2020-08-29 15:23:00 113 /min Universi ty [facility] [place] [facility] Respiratory rate 2020-08-29 15:23:00 14 /min Univ ersity of [place] [facility] Oxygen saturation in 2020-08-29 15:23:00 98 /min University of Arterial blood by [place] Risk I/O nirmala Pulse oximetry Branch Body weight 2020-08-28 19:17:00 122 kg Universi ty [facility] [place] [facility] BMI 2020-08-28 19:17:00 49.19 kg/m2 [facility]i ty [facility] [place] [facility] Body temperature 2020-08-28 18:46:00 36.72 Martina Univ ersity of [place] [facility] Systolic blood 2020-08-29 15:23:00 132 mm[Hg] Univer sity of pressure [place] [facility] Diastolic blood 2020-08-29 15:23:00 82 mm[Hg] Unive rsity of pressure [place] [facility] Heart rate 2020-08-29 15:23:00 113 /min Universi ty [facility] [place] [facility] Respiratory rate 2020-08-29 15:23:00 14 /min Univ ersity of [place] [facility] Oxygen saturation in 2020-08-29 15:23:00 98 /min University of Arterial blood by [place] Medi nirmala Pulse oximetry Branch Body weight 2020-08-28 19:17:00 122 kg Universi ty [facility] [place] [facility] BMI 2020-08-28 19:17:00 49.19 kg/m2 [facility]i ty [facility] [place] [facility] Body temperature 2020-08-28 18:46:00 36.72 Martina Univ ersity of [place] [facility] Systolic blood 2020-04-28 03:05:00 119 mm[Hg] Univer sity of pressure [place] [facility] Diastolic blood 2020-04-28 03:05:00 80 mm[Hg] Unive rsity of pressure [place] [facility] Heart rate 2020-04-28 03:05:00 117 /min Universi ty [facility] [place] [facility] Respiratory rate 2020-04-28 03:05:00 20 /min Univ ersity of [place] [facility] Oxygen saturation in 2020-04-28 03:05:00 99 /min University of Arterial blood by [facility] Pulse oximetry Branch Body temperature 2020-04-28 02:32:00 37.22 Martina Univ ersity [facility] [place] [facility] Body height 2020-04-28 02:32:00 157.5 cm Universi ty of [place] [facility] [place] Body weight 2020-04-28 02:32:00 122.471 kg Universi ty of [place] [facility] [place] BMI 2020-04-28 02:32:00 49.38 kg/m2 [facility] ty [facility] [place] [facility] Systolic blood 2020-04-28 03:05:00 119 mm[Hg] Univer sity of pressure [place] [facility] Diastolic blood 2020-04-28 03:05:00 80 mm[Hg] Unive rsity of pressure [place] [facility] Heart rate 2020-04-28 03:05:00 117 /min [facility]i ty [facility] [place] [facility] Respiratory rate 2020-04-28 03:05:00 20 /min Univ ersity of [place] [facility] Oxygen saturation in 2020-04-28 03:05:00 99 /min University of Arterial blood by [facility] Pulse oximetry Branch Body temperature 2020-04-28 02:32:00 37.22 Martina Univ ersity of [facility] Body height 2020-04-28 02:32:00 157.5 cm Universi ty of [place] [facility] [place] Body weight 2020-04-28 02:32:00 122.471 kg Universi ty [facility] [place] [facility] [place] BMI 2020-04-28 02:32:00 49.38 kg/m2 Universi ty of [facility] Body height 2020-10-22 04:27:00 157.5 cm [facility] Body weight 2020-10-22 04:27:00 127.007 kg 280 [facility] BMI 2020-10-22 04:27:00 51.21 kg/m2 [facility] Systolic blood 2020-10-22 04:24:53 155 mm[Hg] [facility] pressure Diastolic blood 2020-10-22 04:24:53 78 mm[Hg] [facility] pressure Heart rate 2020-10-22 04:24:53 128 /min [facility] Body temperature 2020-10-22 04:24:53 36 Martina [facility] Respiratory rate 2020-10-22 04:24:53 20 /min [facility] Oxygen saturation in 2020-10-22 04:24:53 98 /min [facility] Arterial blood by Pulse oximetry Respiratory 2020-05-07 07:49:50 No respiratory distress /min 02 Sat by Pulse 2020-05-07 07:49:50 100 /min Oximetry Body Mass Index 2020-05-07 07:49:50 49.4 Height 2020-05-07 07:49:50 157.48\\S\\62 Pulse Rate 2020-05-07 07:49:50 87 /min Respiratory Rate 2020-05-07 07:49:50 18 /min Temperature 2020-05-07 07:49:50 37\\S\\98.6 Weight 2020-05-07 07:49:50 440601.939\\S\\4320 Respiratory 2020-05-05 23:26:04 No respiratory distress /min 02 Sat by Pulse 2020-05-05 23:26:04 100 /min Oximetry Body Mass Index 2020-05-05 23:26:04 49.4 Height 2020-05-05 23:26:04 157.48\\S\\62 Pulse Rate 2020-05-05 23:26:04 87 /min Respiratory Rate 2020-05-05 23:26:04 18 /min Temperature 2020-05-05 23:26:04 37\\S\\98.6 Weight 2020-05-05 23:26:04 108505.939\\S\\4320 Respiratory 2020-05-05 16:38:31 No respiratory distress /min 02 Sat by Pulse 2020-05-05 16:38:31 100 /min Oximetry Body Mass Index 2020-05-05 16:38:31 49.4 Height 2020-05-05 16:38:31 157.48\\S\\62 Pulse Rate 2020-05-05 16:38:31 152 /min Respiratory Rate 2020-05-05 16:38:31 20 /min Temperature 2020-05-05 16:38:31 37.2\\S\\99.0 Weight 2020-05-05 16:38:31 569715.939\\S\\4320 Respiratory 2020-05-05 14:24:00 No respiratory distress /min 02 Sat by Pulse 2020-05-05 14:24:00 100 /min Oximetry Body Mass Index 2020-05-05 14:24:00 49.4 Height 2020-05-05 14:24:00 157.48\\S\\62 Pulse Rate 2020-05-05 14:24:00 152 /min Respiratory Rate 2020-05-05 14:24:00 20 /min Temperature 2020-05-05 14:24:00 37.2\\S\\99.0 Weight 2020-05-05 14:24:00 499658.939\\S\\4320 02 Sat by Pulse 2020-05-05 13:30:25 100 /min Oximetry Body Mass Index 2020-05-05 13:30:25 49.4 Height 2020-05-05 13:30:25 157.48\\S\\62 Pulse Rate 2020-05-05 13:30:25 152 /min Respiratory Rate 2020-05-05 13:30:25 20 /min Temperature 2020-05-05 13:30:25 37.2\\S\\99.0 Weight 2020-05-05 13:30:25 417345.939\\S\\4320 02 Sat by Pulse 2020-05-05 13:17:41 100 /min Oximetry Body Mass Index 2020-05-05 13:17:41 49.4 Height 2020-05-05 13:17:41 157.48\\S\\62 Pulse Rate 2020-05-05 13:17:41 152 /min Respiratory Rate 2020-05-05 13:17:41 20 /min Temperature 2020-05-05 13:17:41 37.2\\S\\99.0 Weight 2020-05-05 13:17:41 739339.939\\S\\4320 02 Sat by Pulse 2020-05-05 13:15:39 100 /min Oximetry Body Mass Index 2020-05-05 13:15:39 49.4 Height 2020-05-05 13:15:39 157.48\\S\\62 Pulse Rate 2020-05-05 13:15:39 152 /min Respiratory Rate 2020-05-05 13:15:39 20 /min Temperature 2020-05-05 13:15:39 37.2\\S\\99.0 Weight 2020-05-05 13:15:39 057810.939\\S\\4320 WEIGHT 2020-05-05 13:11:00 122.830162 kg HEIGHT 2020-05-05 13:11:00 157.48 cm Procedures Procedure Date / Time Performing Clinician Source Performed CT ABDOMEN PELVIS W 2021-01-19 02:26:01 Wan Pacheco [facility] CONTRAST [facility] POCT TEST 2021-01-19 01:41:[address] [facility] COMP. METABOLIC PANEL 2021-01-19 01:40:00 [id number] CBC WITH DIFF 2021-01-19 01:40:[address] [facility] URINALYSIS 2021-01-19 01:40:[address] [facility] CONSENT/REFUSAL FOR 2021-01-19 01:18:32 Doctor Unassigned, No [facility] DIAGNOSIS AND TREATMENT Name Medical Branch HC COMPLETE BLD COUNT 2020-10-22 05:09:00 David Hernandes [facility] W/AUTO DIFF URINALYSIS 2020-10-22 05:09:00 David Hernandes spital COMPREHENSIVE METABOLIC 2020-10-22 05:09:00 David Hernandes [facility] PANEL LACTIC ACID, I-STAT 2020-10-22 05:09[facility]00 [facility]AL[facility], URINE 2020-10-22 05:09:00 David Hernandes [facility] SCREEN ESTIMATED GFR 2020-10-22 05:09:00 David Hernandes Ho spital MR LUMBAR SPINE W WO 2020-08-29 04:41:29 Leah Doty [facility] CONTRAST [facility] POCT TEST 2020-08-29 04:39:00 Debbi Page [facility] CBC WITH DIFF 2020-08-29 03:06:00 Camilo [facility] LACTIC ACID WHOLE BLOOD 2020-08-29 03:06:00 Camilo [facility] COMP. METABOLIC PANEL 2020-08-29 02:50:00 Camilo [facility] ([id number]) [facility] URINALYSIS 2020-08-29 02:50:00 Camilo [facility] COVID-19 (ID NOW RAPID 2020-08-28 23:34:00 Leah Doty [facility] TESTING) [facility] CONSENT/REFUSAL FOR 2020-08-28 18:48:13 [facility]igned, [facility]REAT[facility] Name [facility] ADC / LCC - DRUG SCREEN 2020-04-28 03:58:00 Mary Bran [facility] TRIAGE [facility] BASIC METABOLIC PANEL 2020-04-28 03:03:00 Mary rBan [facility] (NA, K, CL, CO2, Medical Branch GLUCOSE, BUN, CREATININE, CA) CBC WITH DIFF 2020-04-28 03:03:00 Mary Bran [facility] URINALYSIS 2020-04-28 02:41:00 Mary Bran [facility] POCT TEST 2020-04-28 02:40:00 Mary Bran [facility] NOTICE OF PRIVACY 2020-04-28 02:22:34 Doctor Unassigned, No [facility] PRACTICES Name [facility] CONSENT/REFUSAL FOR 2020-04-28 02:22:21 Doctor Unassigned, [facility]REATMENT Name [facility] Plan of Care Planned Activity Planned Date Details Comments Source Future Scheduled 2022-03-07 COVID-19 VACCINE [facility] Test 00:41:47 (#1) [code = COVID-19 VACCINE (#1)] Future Scheduled 2022-03-07 [facility] Test 00:41:47 screening (procedure) [code = 520647253] Future Scheduled 2022-03-07 [facility] Test 00:41:47 malignant neoplasm of cervix (procedure) [code = 019251195] Future Scheduled 2022-03-07 [facility]:47 [code = INFLUENZA VACCINE] Future Scheduled [facility] [code = INFLUENZA VACCINE] Future Scheduled COVID-[address] [facility] [facility] (1) [code = COVID-19 VACCINE (1)] Future Scheduled [facility] (procedure) [code = 274236055] Future Scheduled [facility] malignant neoplasm of cervix (procedure) [code = 915172279] Encounters Start End Encounter Admission Attending Care Care Encounter Source Date/Time Date/Time Type Type Clinicians Facility Department ID 2020-05-05 Inpatient [facility] [id number] [facility] 13:01:00 76 2020-05-05 Inpatient [facility] [id number] [facility] 13:01:00 76 2020-04-25 Inpatient HCAKW HCAKW [id number] [facility] 00:45:38 47 [facility] 2020-01-18 Inpatient HCAPM ZEE [id number] [facility] 19:15:00 86 [facility] 2020-01-15 Inpatient HCAKW ZEE [id number] [facility] 14:21:00 20 [facility] 2020-01-14 Inpatient HCAKW ZEE [id number] [facility] 22:47:00 65 [facility] 2020-01-13 Inpatient HCAKW ZEE [id number] [facility] 17:51:00 91 [facility] 2021-09-17 2021-09-17 Emergency EM Vu, HCATB HCATB [id number] [facility] 17:23:00 19:19:00 Johnathan [id number] [facility] 2021-09-17 2021-09-17 Emergency EM Vu, HCATB ZEE [id number] [facility] 17:23:00 19:19:00 Johnathan 62 [facility] 2021-03-13 2021-03-13 Emergency nullFlavo [facility] [id number] Memoria 20:35:29 22:30:00 aaron Johnson 2021-01-18 2021-01-18 Emergency X , [facility] ERT [id number] [facility] 20:26:00 22:38:00 WAN paz of [facility] 2021-01-18 2021-01-18 [facility] [id number] Univers 20:26:00 22:38:00 Wan MENDOZA 350.1.13.10 i ty [facility] 4.2.7.2.686 [facility] [id number] [address] 2021-01-17 2021-01-17 Emergency ER Dickson, STLSJG STLSJG [id number] 11 [facility] 17:05:00 20:00:00 Dennis -[id number] Jose David s [facility] 2021-01-08 2021-01-08 Emergency ER [place], STLSJX STLSJX [id number] STLSJX 12:37:00 12:37:00 Oli -[id number] 2020-11-25 2020-11-25 Emergency SEBASTIAN, [facility] 064 [id number] 40 [place] 00:00:00 00:00:00 MANOLO [address] 2020-10-22 2020-10-22 Travel 1.2.840.1 1.2.601.446 [id number] Methodi 00:00:00 00:00:[address] 3.430.2.7 0.2.7.3.698 spita .3.815453 084.8 l .8 2020-10-21 2020-10-22 Emergency NUSZEN, [facility] 064 [id number] 03 [place] 00:00:00 00:00:00 DAV[address] 2020-08-28 2020-08-29 Emergency Aufderheyou, Leah Glassa TRAUMA 1.2.840.114 [id number] 13:50:00 10:43:00 Sai PattersonMelvin [place] 350.1.13.10 Darron Jules W 4.2.7.2.686 [id number] 014 2020-08-28 2020-08-29 Emergency Aufderhilary, Leah Glassa TRAUMA 1.2.840.114 [id number] Univers 13:50:00 10:43:00 [facility] 350.1.13.10 ity of Darron Jules 4.2.7.2.686 [place] [id number] [facility] [address] 2020-08-28 2020-08-28 Emergency X [facility] ERT [id number] Univers 13:42:00 13:42:00 ity of [facility] 2020-04-27 2020-04-27 Emergency Bran, [facility] 1.2.840.114 [id number] 20:41:00 23:12:00 Maryrakan Mendoza 350.1.13.10 [place] 4.2.7.2.686 [place] [id number] [facility] 2020-04-27 2020-04-27 Emergency Bran, [facility] 1.2.840.114 [id number] Univers 20:41:00 23:12:00 Maryrakan Mendoza 350.1.13.10 i ty of [place] 4.2.7.2.686 [facility] [id number] [facility] 084 [place] 2020-04-27 2020-04-27 Emergency X [facility] ERT [id number] Univers 20:23:00 20:23:00 ity [facility] 2020-04-27 2020-04-27 Orders Doctor GALVAN 1.2.840.114 [id number] 00:00:00 00:00:00 Only Unassigned, KEVYN 350.1.13.10 [facility] 4.2.7.2.686 [id number] 009 2020-04-27 2020-04-27 Orders Doctor COLE 1.2.840.114 [id number] Univers 00:00:00 00:00:00 Only Unassigned, KEVYN 350.1.13.10 ity of [facility] 4.2.7.2.686 [place] [id number] [facility] [address] 2020-01-18 2020-01-18 Outpatient LUCÍA Kruse [id number] [facility] 22:41:00 22:41:00 Anita 89 [facility] 2020-01-15 2020-01-17 Inpatient EM Bradly Sebastian [facility] [id number] [facility] 17:01:00 12:13:00 20 [facility] Results Test Description Test Time Test Comments Results Result Comments Source - US RETRO LTD 2021-09-17 18:45:00 [facility] : 1995 Sex: F Lv tient Name: NATIVIDAD GREGG Unit No: [id number] EXAMS: CPT: [id number] RETRO LTD 34787 COMPARISON: None CLINICAL HISTORY: Left flank pain [...] Technologist: Rashi Cordoba Probe: Trscr Dt/Tm: 09/17/2021 (184) by:Lilly Orig Print D/T: S: 09/17/2021 (228) BATCH NO: N/A [facility] [id number] - VuJohnathan 605 [facility] : 1995 Age: 26 Sex: F Janes [facility] No: [id number] Loc: BRIAN Exam Date: 09/17/2021 Status: REG ER PH: [...] CA) 10.2 mg/dL 8.6-10.3 N LIVER FUNCTION [id number] 18:39:00 Test Item Value Reference Range Interpretation [...] code = 74 U/L 46-116 N ALKP) [id number] 18:39:00 Test Item Value Reference Range Interpretation Comments LIPASE (test code = LIP) 37 U/L 12-53 N UA RFLX MICR CULT IF [id number] 18:25:00 Test Item Value Reference Range Interpretation [...] culture: Flank PainSpecimen Description: CLEAN CATCHCBC W/AUTO [id number] 18:24:00 Test Item Value Reference Range Interpretation [...] 0.04 K/mm3 0.0-0.1 N COMP. METABOLIC PANEL (55628)2021-01-19 01:59:14 Test Item Value Reference Range Interpretation Comments NA (test code = 140 mmol/L 135-145 6984255170) K (test code = 4.4 mmol/L 3.5-5.0 6913753332) CL (test code = 106 mmol/L 98-108 2021547781) CO2 TOTAL (test code 23 mmol/L 23-31 = 3200182324) AGAP (test code = 2-16 7195885027) BUN (test code = 9 mg/dL 7-23 6484973000) GLUCOSE (test code = 94 mg/dL 70-110 1350634768) CREATININE (test code 0.62 mg/dL 0.50-1.04 = 6393872141) TOTAL BILI (test code 0.3 mg/dL 0.1-1.1 = 6353330222) CALCIUM (test code = 9.8 mg/dL 8.6-10.6 8369743851) T PROTEIN (test code 7.8 g/dL 6.3-8.2 = 7091669482) ALBUMIN (test code = 4.6 g/dL 3.5-5.0 7355293637) ALK PHOS (test code = 97 U/L 34-122 1689299593) ALTv (test code = 19 U/L 5-35 1742-6) AST(SGOT) (test code 26 U/L 13-40 = 1442553948) eGFR (test code = mL/min/1.73m2 6073017396) AURORA (test code = AURORA) Association of [...] or urine or abnormalities in imaging tests). [facility] WITH [id number] 01:47:12 Test Item Value Reference Range Interpretation [...] (test code = 51.5 fL 39.0-49.9 H 25891-0) RDW-CV (test code = 17.4 % 12.0-15.5 H 788-0) PLT (test code = See_Comment H [Automated 777-3) message] The sy stem which generated this result transmitted reference range : 166 - 358 10*3/ ?L. The reference r edson was not used to interpret this result as normal/abnormal . MPV (test code = 9.3 fL 9.5-12.9 L 48927-6) NRBC/100 WBC (test See_Comment [Automat ed code = 8933726989) message] The system which generated this result transmitted reference range : 0.0 - 10.0 /100 WBCs. The refer ence range was not u sed to interpret th is result as normal/abnormal . NRBC x10^3 (test code <0.01 See_Comment [Auto mated = 2396456379) message] The s ystem which generated this result transmitted reference range : 10*3/?L. The reference range was not used to interpret this result as normal/abnormal . GRAN MAT (NEUT) % 59.5 % (test code = 770-8) IMM GRAN % (test code 0.30 % = 4526861562) LYMPH % (test code = 30.7 % 736-9) MONO % (test code = 5.7 % 5905-5) EOS % (test code = 3.3 % 713-8) BASO % (test code = 0.5 % 706-2) GRAN MAT x10^3(ANC) 5.88 10*3/uL 1.88-7.09 (test code = 2016041978) IMM GRAN x10^3 (test 0.03 10*3/uL 0.00-0.06 code = 1305565112) LYMPH x10^3 (test code 3.03 10*3/uL 1.32-3.29 = 731-0) MONO x10^3 (test code 0.56 10*3/uL 0.33-0.92 = 742-7) EOS x10^3 (test code = 0.33 10*3/uL 0.03-0.39 711-2) BASO x10^3 (test code 0.05 10*3/uL 0.01-0.07 = 704-7) Lab Interpretation Abnormal (test code = 97087-6) [id number] 01:41:00 Test Item Value Reference Range Interpretation Comments POCT PREG (test code = 1605) neg On board controls acceptable with yes C Line (test code = 3574) POCT PREG LOT # (test code = 3575) [id number] POCT PREG TEST DATE (test 03/15/2022 code = 3576) Lab Interpretation (test code = Normal 00468-2) [facility] 18:14:00 Test Item Value Reference Range [...] 7.8-10.44 N code = CA) Chemistry - [id number] 18:04:00 Test Item Value Reference Range Interpretation Comments Chemistry - Specials Negative NEGATIVE Method of sensitivity- (test code = BHCGST) Indeter minant: results should be repea jose after 48-72 hrs Positive: resul ts may be detected as early as 1 day after the first missed me nses. [id number] 17:55:00 Test Item Value Reference Range Interpretation [...] code = BASO#) 0.1 thou/uL 0.0-0.2 N [id number] 17:55:00 Test Item Value Reference Range Interpretation [...] Source: Urine VoidedMR LUMBAR SPINE W WO [id number] 13:40:15 Prior right L5-S1 laminectomy and apparent [...] - 08/29/2020 8:41 AM CDT ORDERING PHYSICIAN:LEAH FERROIDEHISTORY:Low back pain, infection suspected TECHNIQUE: Lumbar spine [...] the cauda equina demonstrateenhancement, likely postoperative.RL: 4700 [facility] [id number] 04:39:00 Test Item Value Reference Range Interpretation Comments POCT PREG (test code = 1605) negative On board controls acceptable with present C Line (test code = 3574) POCT PREG LOT # (test code = 3575) [id number] POCT PREG TEST DATE (test 02-12-22 code = 3576) Lab Interpretation (test code = Normal 16215-4) [facility] 03:30:07 Test Item Value Reference Range Interpretation Comments APPEARANCE (test code = Clear Clear 6748247623) COLOR (test code = Yellow Yellow 5486242824) PH (test code = 4.8-8.0 1332153189) SP GRAVITY (test code = 1.003-1.030 9756833855) GLU U QUAL (test code = Normal Normal 1868859474) BLOOD (test code = Negative Negative Interfere nce from 1889882118) ascorbic acid m ay cause false neg ative results. KETONES (test code = Negative Negative 5310842489) PROTEIN (test code = Negative Negative 2887-8) UROBILIN (test code = Normal Normal 5430569555) BILIRUBIN (test code = Negative Negative 6196385335) NITRITE (test code = Negative Negative 5177728283) LEUK GAETANO (test code = Negative Negative 3847081118) RBC/HPF (test code = See_Comment [Autom ated message] 1914791266) The system Jugo generated this result transmitted ref erence range: 0 - 3 HP F. The reference range was not used to int erpret this result as normal/abnormal . WBC/HPF (test code = See_Comment [Autom ated message] 0879277978) The system Jugo generated this result transmitted ref erence range: 0 - 5 HP F. The reference range was not used to int erpret this result as normal/abnormal . BACTERIA (test code = Negative Negative 2926265995) MUCOUS (test code = Slight Negative LPF A 3661696115) SQ EPITH (test code = See_Comment H [Auto mated message] 2510372806) The system Jugo generated this result transmitted ref erence range: <=2 HPF. The reference range was not used to int erpret this result as normal/abnormal . ASCORBIC ACID (test code 20 mg/dL = 6007217302) Lab Interpretation (test Abnormal code = 55784-7) [facility]. METABOLIC PANEL (40723)2020-08-29 03:19:20 Test Item Value Reference Range Interpretation Comments NA (test code = 139 mmol/L 135-145 6485341018) K (test code = 3.8 mmol/L 3.5-5.0 5789396637) CL (test code = 110 mmol/L 98-108 H 2531116392) CO2 TOTAL (test code = 18 mmol/L 23-31 L 3229664933) AGAP (test code = 2-16 6599023128) BUN (test code = 10 mg/dL 7-23 6282350242) GLUCOSE (test code = 95 mg/dL 70-110 6846991953) CREATININE (test code = 0.60 mg/dL 0.50-1.04 8684384467) TOTAL BILI (test code = 0.3 mg/dL 0.1-1.6 1081032008) CALCIUM (test code = 9.0 mg/dL 8.6-10.6 3388302340) T PROTEIN (test code = 7.0 g/dL 6.3-8.2 6376467073) ALBUMIN (test code = 4.2 g/dL 3.5-5.0 9018657084) ALK PHOS (test code = 67 U/L 34-122 4285415164) ALTv (test code = 24 U/L 5-35 2-6) AST(SGOT) (test code = 30 U/L 13-40 0625255867) eGFR (test code = mL/min/1.73m2 1619314803) AURORA (test code = AURORA) Association of [...] tests). Lab Interpretation Abnormal (test code = 26275-2) [facility] Whole [id number] 03:19:05 Test Item Value Reference Range Interpretation Comments LACTIC ACID (test code = 1.35 mmol/L 0.50-2.20 3111626050) Lab Interpretation (test code = Normal 31657-1) [facility] WITH [id number] 03:17:59 Test Item Value Reference Range Interpretation [...] (test code = 53.7 fL 39.0-49.9 H 27739-0) RDW-CV (test code = 17.3 % 12.0-15.5 H 788-0) PLT (test code = See_Comment H [Automated 777-3) message] The sy stem which generated this result transmitted reference range : 166 - 358 10*3/ ?L. The reference r edson was not used to interpret this result as normal/abnormal . MPV (test code = 9.3 fL 9.5-12.9 L 93924-9) NRBC/100 WBC (test See_Comment [Automat ed code = 0789525600) message] The system which generated this result transmitted reference range : 0.0 - 10.0 /100 WBCs. The refer ence range was not u sed to interpret th is result as normal/abnormal . NRBC x10^3 (test code <0.01 See_Comment [Auto mated = 8082068823) message] The s ystem which generated this result transmitted reference range : 10*3/?L. The reference range was not used to interpret this result as normal/abnormal . GRAN MAT (NEUT) % 58.1 % (test code = 770-8) IMM GRAN % (test code 0.20 % = 5839081675) LYMPH % (test code = 29.0 % 736-9) MONO % (test code = 8.3 % 5905-5) EOS % (test code = 4.0 % 713-8) BASO % (test code = 0.4 % 706-2) GRAN MAT x10^3(ANC) 5.40 10*3/uL 1.88-7.09 (test code = 1670961464) IMM GRAN x10^3 (test <0.03 0.00-0.06 code = 8439806281) LYMPH x10^3 (test code 2.69 10*3/uL 1.32-3.29 = 731-0) MONO x10^3 (test code 0.77 10*3/uL 0.33-0.92 = 742-7) EOS x10^3 (test code = 0.37 10*3/uL 0.03-0.39 711-2) BASO x10^3 (test code 0.04 10*3/uL 0.01-0.07 = 704-7) Lab Interpretation Abnormal (test code = 01594-6) [facility] NOW RAPID TESTING)2020-08-29 00:07:14 Test Item Value Reference Range Interpretation Comments SARS-CoV-2 Rapid ID NOW Not Detected Not Detected (test code = 91561-5) AURORA (test code = AURORA) ID NOW COVID-19 Assay is an isothermal nucleic acid amplification test intended for the qualitative detection of nucleic acid from SARS-CoV-2 viral RNA in nasopharyngeal (CHANNEL PROGRAM MANAGER) specimens. It is used under Emergency Use [...] indicated. Lab Interpretation Normal (test code = 09363-3) [facility],[id number] 15:32:00 Test Item Value Reference Range Interpretation Comments Potassium,K (test code = K) 4.3 mmol/L 3.0-5.1 N Complete Blood Count Auto [id number] 13:53:00 Test Item Value Reference Range Interpretation Comments White Blood Count (test code = 9.5 x10 3/uL 4.4-10.5 N WBCT) Red Blood Count (test code = 3.58 x10 6/uL 3.75-5.20 L RBC) Hemoglobin (test code = HGBT) 10.2 g/dL 12.2-14.8 L Hematocrit (test code = HCTT) 33.3 % 36.5-44.4 L Mean Corpuscular Volume (test 93.00 fL 80.00-100.00 N code = MCV) Mean Corpuscular Hemoglobin 28.5 pg 27.0-32.5 N (test code = MCH) Mean Corpuscular HGB Conc 30.60 g/dL 32.00-37.50 L (test code = MCHC) RDW Coefficient of Variation 16.4 % 11.5-14.5 H (test code = RDWCV) Platelet Count (test code = 300.0 x10 3/uL 140.0-440.0 N PLTT) Mean Platelet Volume (test 10.8 fL code = MPV) Immature Granulocytes % (Auto) 0.3 % 0.0-5.0 N (test code = IMMGRAN%) Neutrophils % (Auto) (test 65.3 % 36.0-70.0 N code = NE%) Lymphocytes % (Auto) (test 22.8 % 12.0-44.0 N code = LY%) Monocytes % (Auto) (test code 4.8 % 0.0-11.0 N = MO%) Eosinophils % (Auto) (test 6.2 % 0.0-7.0 N code = EO%) Basophils % (Auto) (test code 0.6 % 0.0-2.0 N = BA%) Immature Granulocytes # (Auto) 0.03 x10 3/uL (test code = IMMGRAN#) Neutrophils # (Auto) (test 6.2 x10 3/uL 1.6-7.4 N code = NE#) Lymphocytes # (Auto) (test 2.17 x10 3/uL 0.50-4.60 N code = LY#) Monocytes # (Auto) (test code 0.46 x10 3/uL 0.00-1.20 N = MO#) Eosinophils # (Auto) (test 0.59 x10 3/uL 0.00-0.74 N code = EO#) Basophils # (Auto) (test code 0.06 x10 3/uL 0.00-0.21 N = BA#) nRBC Abs (test code = NRBCA) 0 nRBC Pct (test code = NRBCP) 0 % Comprehensive Metabolic [id number] 13:53:00 Test Item Value Reference Range Interpretation Comments SODIUM (test code = 135.0 136.0-145.0 L NA) mmol/L Potassium,K (test code 7.3 mmol/L 3.0-5.1 HH 7.3SA MPLE = K) HEMOLYZEDSUGGES T RE-DRAW Chloride (test code = 109 mmol/L 98-107 H CL) Carbon Dioxide (test 20 mmol/L 20-31 N code = CO2) Anion Gap (test code = 6 mmol/L 5-15 N GAP) Blood Urea Nitrogen 12 mg/dL 9-23 N (test code = BUN) Creatinine (test code 0.73 mg/dL 0.55-1.02 N = CREATT) Creatinine Clr Calc 148.29 Pharmacy (test code = mL/min CRCLPHA) Estimated GFR ( > 60 mL/min/1.73m2 Casandra (test code = EGFRAA) Estimated GFR (Non Afr > 60 mL/min/1.73m2 Casandra (test code = EGFRNAA) BUN/Creatinine Ratio 16 ratio 10-20 N (test code = BCRATIO) Glucose (test code = 107 mg/dL 74-106 H GLU) Osmolality,Calculated 279.2 (test code = OSMOC) Calcium (test code = 9.0 mg/dL 8.3-10.6 N CA) Bilirubin,Total (test 0.3 mg/dL 0.2-1.1 N code = BILIT) Aspartate Amino 98 U/L 0-34 H Transferase (test code = AST) Alanine 49 U/L 10-49 N Aminotransferase (test code = ALT) Total Protein (test 6.5 g/dL 5.7-8.2 N code = TP) Albumin Level (test 4.5 g/dL 3.2-4.8 N code = ALB) Globulin (test code = 2.0 mg/dL 2.3-3.5 L GLOB) Albumin/Globulin Ratio 2.3 ratio 0.8-2.0 H (test code = AGRATIO) Alkaline Phosphatase 82 U/L 46-116 N (test code = ALP) HCG, Serum Qual (LAB)2020-05-05 13:53:00 Test Item Value Reference Range Interpretation Comments HCG, Serum Qual (LAB) (test code = Negative Negative HCGQ) Lactic [id number] 13:53:00 Test Item Value Reference Range Interpretation Comments Lactic Acid (test code = LACTIC) 1.1 mmol/L 0.5-2.0 N [facility] - DRUG SCREEN [id number] 04:20:00 Test Item Value Reference Range Interpretation Comments BENZO U (test code = Negative Negative 3907044278) DIVYA U (test code = Negative Negative 4372630463) AMPHET (test code = Negative Negative 7467737044) THC (test code = Negative Negative 3054657433) METHADONE (test code = Negative Negative 2392079580) Meth U (test code = Negative Negative 4609955608) OPIATES (test code = Presumptive Positive Negative A 6747404168) Cocaine Metabolite (test Negative Negative code = 9892053029) PROPOXY (test code = Negative Negative 0164792061) Tric U (test code = Negative Negative 8512300162) PCP (test code = Negative Negative 7452844323) OXYCOD (test code = Negative Negative 2590732573) AURORA (test code = AURORA) Urine Drug [...] testing). Lab Interpretation (test Abnormal code = 97155-3) [facility] Metabolic Panel (NA, K, CL, CO2, GLUCOSE, BUN, CREATININE, CA)2020-04-28 03:22:00 Test Item Value Reference Range Interpretation Comments NA (test code = 139 mmol/L 135-145 8586074368) K (test code = 4.4 mmol/L 3.5-5 9730058806) CL (test code = 105 mmol/L 98-108 1728850372) CO2 TOTAL (test code = 25 mmol/L 23-31 3369598831) AGAP (test code = 2-16 3294751263) BUN (test code = 11 mg/dL 7-23 1660781016) GLUCOSE (test code = 92 mg/dL 70-110 1468047802) CREATININE (test code 0.65 mg/dL 0.5-1.04 = 8249038143) CALCIUM (test code = 9.5 mg/dL 8.6-10.6 2879438575) eGFR Calculation mL/min/1.73m2 (Non-) (test code = 4978402202) eGFR Calculation mL/min/1.73m2 () (test code = 9671930386) AURORA (test code = AURORA) Association of [...] or urine or abnormalities in imaging tests). [facility] [id number] 03:17:00 Test Item Value Reference Range Interpretation Comments APPEARANCE (test code = Cloudy Clear A 4598373004) COLOR (test code = Yellow Yellow 2090580681) PH (test code = 4.8-8.0 9385875795) SP GRAVITY (test code = 1.003-1.030 8522221988) GLU U QUAL (test code = Normal Normal 2220784089) BLOOD (test code = Negative Negative 1520538092) KETONES (test code = Negative Negative 7639731642) PROTEIN (test code = Negative Negative 2887-8) UROBILIN (test code = Normal Normal 0916539459) BILIRUBIN (test code = Negative Negative 2635123647) NITRITE (test code = Negative Negative 9785072913) LEUK GAETANO (test code = Negative Negative 2437230006) RBC/HPF (test code = <1 See_Comment [Autom ated message] 3133449899) The system Jugo generated this result transmitted ref erence range: 0 - 3 HP F. The reference range was not used to int erpret this result as normal/abnormal . WBC/HPF (test code = See_Comment [Autom ated message] 5597446996) The system Jugo generated this result transmitted ref erence range: 0 - 5 HP F. The reference range was not used to int erpret this result as normal/abnormal . BACTERIA (test code = Many Negative A 2090259502) MUCOUS (test code = Slight Negative LPF A 9626914508) AMORPHOUS (test code = Moderate Rare HPF A 2347318761) SQ EPITH (test code = HPF 2144370355) WBC CLUMPS (test code = See_Comment H [Au tomated message] 4801561831) The system Jugo generated this result transmitted ref erence range: <=1 HPF. The reference range was not used to int erpret this result as normal/abnormal . YEAST BUD (test code = See_Comment H [Aut omated message] 4254716864) The system Jugo generated this result transmitted ref erence range: <=1 HPF. The reference range was not used to int erpret this result as normal/abnormal . Lab Interpretation (test Abnormal code = 41295-5) [facility] with Llbfaakahtwx1247-66-14 03:11:00 Test Item Value Reference Range Interpretation [...] RDW-SD (test code = 47.8 fL 39-49.9 14629-5) RDW-CV (test code = 15.2 % 12-15.5 788-0) PLT (test code = See_Comment H [Automated 777-3) message] The sy stem which generated this result transmitted reference range : 166 - 358 10*3/ ?L. The reference r edson was not used to interpret this result as normal/abnormal . MPV (test code = 9.7 fL 9.5-12.9 90842-9) NRBC/100 WBC (test See_Comment [Automat ed code = 0572709946) message] The system which generated this result transmitted reference range : 0.0 - 10.0 /100 WBCs. The refer ence range was not u sed to interpret th is result as normal/abnormal . NRBC x10^3 (test code <0.01 See_Comment [Auto mated = 4569871327) message] The s ystem which generated this result transmitted reference range : 10*3/?L. The reference range was not used to interpret this result as normal/abnormal . GRAN MAT (NEUT) % 70.3 % (test code = 770-8) IMM GRAN % (test code 0.50 % = [id number]) LYMPH % (test code = 21.0 % 736-9) MONO % (test code = 5.2 % 5905-5) EOS % (test code = 2.4 % 713-8) BASO % (test code = 0.6 % 706-2) GRAN MAT x10^3(ANC) 7.03 10*3/uL 1.88-7.09 (test code = [id number]) IMM GRAN x10^3 (test 0.05 10*3/uL 0-0.06 code = [id number]) LYMPH x10^3 (test code 2.10 10*3/uL 1.32-3.29 = 731-0) MONO x10^3 (test code 0.52 10*3/uL 0.33-0.92 = 742-7) EOS x10^3 (test code = 0.24 10*3/uL 0.03-0.39 711-2) BASO x10^3 (test code 0.06 10*3/uL 0.01-0.07 = 704-7) Lab Interpretation Abnormal (test code = 65591-7) [id number] Test Item Value Reference Range Interpretation Comments POCT PREG (test code = 1605) Negative On board controls acceptable with Present C Line (test code = 3574) POCT PREG LOT # (test code = HCG [id number]) POCT PREG TEST DATE (test 12/13/2021 code = 3576) Lab Interpretation (test code = Normal 49205-5) [id number] 02:52:00 Test Item Value Reference Range Interpretation Comments LACTIC ACID (test code = LACT) 1.0 mmol/L 0.7-2.0 N COMPREHENSIVE METABOLIC [id number] 02:28:00 Test Item Value Reference Range Interpretation [...] = ALKP) UA RFLX MICR CULT IF [id number] 01:22:00 Test Item Value Reference Range Interpretation [...] URINE: CLEAN CATCHUA RFLX MICR CULT IF [id number] 01:19:00 Test Item Value Reference Range Interpretation [...] = LACT) toFirst Name:ENMANUEL I7767 Last Name:CHEL FABIANA READ BACK AND AURROA ShuklaLAB.MG, on , @ 0052. [id number] 00:50:00 Test Item Value Reference Range Interpretation Comments LIPASE (test code = LIP) 54 U/L 23-300 N CBC W/AUTO [id number] 00:49:00 Test Item Value Reference Range Interpretation [...] 0.04 x10 3/uL 0.0-0.1 N - RETRO [id number] 00:16:00 [facility] : 1995 Sex: F Sterling: St: REG -- Name: NATIVIDAD GREGG [facility] Randy : 1995 Age/S: 24/F [address] Unit #: [id number] Loc: [place] [address] Phys: Luis Goddard NP Acct: [id number] Dis Date: Status: REG ER PHONE #: [phone] Exam Date: 04/24/2020 0005 FAX #: [phone] Reason: left flank pain EXAMS: CPT CODE: [id number] US RETRO LTD 35828 EXAM: - US RETRO LTD LOCATION: H57 [...] by:Leonel Delacruz MD CC: Technologist: Francine Jimenez RDMS RVT Trnscrd Date/Time/By: 04/25/2020 (0016): By: [email or web address] PAGE 1 Signed Report Sterling: [facility]: REG Name: NATIVIDAD GREGG [facility] Randy : 1995 Age/S: [address] Unit #: [id number] Loc: [place] [address] Phys: Luis Goddard NP Acct: [id number] Dis Date: Status: REG ER PHONE #: [phone] Exam Date: 04/24/2020 0005 FAX #: [phone] Reason: left flank pain EXAMS: CPT CODE: [id number] RETRO LTD 71605 (Continued) Orig Print D/T: S: 04/25/2020 (0019) PAGE 2 Signed ReportCOVID 19 INHOUSE [id number] 21:16:00 Test Item Value Reference Range Interpretation Comments COVID 19 INHOUSE AG NEGATIVE Negative Per manu facturer, (test code = negative result s should [id number]) be treated aspr esumptive and, if inconsi [...] nsistent with COVID-19. - XR CHEST 1 [id number] 20:44:00 [facility] [place] : 1995 Sex: F Name: NATIVIDAD GREGG [place] : 1995 Age/S: 24 / F [employer] Unit #: [id number] Loc: [place] [address] Phys: Anita Kruse MD Acct: [id number] Dis Date: Status: REG ER PHONE #: [phone] Exam Date: 01/18/20202023 FAX #: Reason: Code Sepsis EXAMS: CPT: [id number] XR CHEST 1 V 85149 Fluoro Time: DAP (Gy m2): Air Kerma [...] PAGE 1 Signed Report Name: NATIVIDAD GREGG [place] : 1995 Age/S: [address] [place] [address] Unit #: [id number] Loc: [place] [address] Phys: Anita Kruse MD Acct: [id number] Dis Date: Status: REG ER PHONE #: [phone] Exam Date: 01/18/20202023FAX #: Reason: Code Sepsis EXAMS: CPT: [id number] XR CHEST 1 V 70110 Fluoro Time: DAP (Gy m2): Air Kerma (mGy): <Continued> Technologist: Brandi Clark RT(R)(CT) Trnscb Date/Time: 01/18/2020 (2043) [email or web address] Orig Print D/T: S: 01/18/2020 (2047) PAGE 2 Signed ReportUA RFLX MICR CULT IF [id number] 20:17:00 Test Item Value Reference Range Interpretation [...] culture: Suprapubic PainUA RFLX MICR CULT IF [id number] 20:13:00 Test Item Value Reference Range Interpretation [...] UACULT) Indication for culture: Suprapubic PainBASIC METABOLIC [id number] 20:13:00 Test Item Value Reference Range Interpretation [...] 8.5-10.1 N Completed by Nursing: NOHEPATIC FUNCTION [id number] 20:13:00 Test Item Value Reference Range Interpretation [...] N code = ALKP) Completed by Nursing: [id number] 20:13:00 Test Item Value Reference Range Interpretation [...] jesse yby method. Completed by Nursing: NOLACTIC [id number] 20:13:00 Test Item Value Reference Range Interpretation Comments LACTIC ACID (test code = LACT) 1.8 mmol/L 0.4-2.0 N CBC W/AUTO [id number] 19:57:00 Test Item Value Reference Range Interpretation [...] NO DIFF/SCN CRITERIA = MDIFF) BASIC METABOLIC [id number] 07:22:00 Test Item Value Reference Range Interpretation [...] 8.7 mg/dL 8.4-10.2 N CA) CBC W/AUTO [id number] 07:03:00 Test Item Value Reference Range Interpretation [...] 0.05 x10 3/uL 0.0-0.1 N BASIC METABOLIC [id number] 05:56:00 Test Item Value Reference Range Interpretation [...] 8.4 mg/dL 8.4-10.2 N CA) CBC W/AUTO [id number] 05:42:00 Test Item Value Reference Range Interpretation [...] LDL Cholesterol<1 00mg/ dL: Desirable L DL-C rgxkbufltxcvn57 0-159 mg/dL: Borderli ne High Risk LDL-C edrazjewtiudq92 0-189 mg/dL: High ris k LDL-C concentra [...] AVG 11.04~~~~~~~~~~ ~~~~~~~ ~~~~~~~~~~~~~~~ ~~~~~~~ ~~~~~~~~~~~~~~~ ~~~~~~N [facility] Cholest shubham Education (NCEP ) Guidelines:~~~~ ~~~~~~~ ~~~~~~~~~~~~~~~ ~~~~~~~ ~~~~~~~~~~~~~~~ ~~~~~~~ ~~~~~ HDL Cholesterol<4 0mg/dL: HDL Cholesterol (Major risk factor for CHD)>60mg/dL: H DL Cholesterol (Ne gative risk factor for CHD)40-59mg/dL: Borderline Risk LDL Cholesterol<1 00mg/dL : Desirable LDL -C tgatucewpuftf76 0-159mg /dL: Borderline High Risk LDL-C lhctijuhikqcu13 0-189mg /dL: High risk LDL-C concentration H DL-LDL Cholesterol is affected by a n umber of factors such as smoking, age an d sex.~~~~~~~~~~~ ~~~~~~~ ~~~~~~~~~~~~~~~ ~~~~~~~ ~~~~~~~~~~~~~~~ ~~~~~ LACTIC [id number] 17:52:00 Test Item Value Reference Range Interpretation Comments LACTIC ACID (test code = LACT) 1.6 mmol/L 0.7-2.0 N Coronavirus 2019 nCoV [id number] 17:03:00 Test Item Value Reference Range Interpretation Comments Coronavirus 2018 Negative NEGATIVE This test h as been nCoV Bedside (test authorize d by FDA under code = [id number]) an EUA for use byKeas; T his test has been author ized only for the detecti on ofnucleic acid from SARS-CoV-2, not for any other viruses orpathogens; an d This test is only au thorized for the duratio n of thedeclaration that circumstances e xist justifying theauthorizatio n of emergency use o f in vitro diagnostic test sfor detection and/o r diagnosis of CO VID-19 under Rgimivz90 4(b)(1) of the Act, 21 U.S .C. 360bbb-3(b)(1), unless theauthorizatio n is terminated or r evoked sooner. LACTIC [id number] 16:44:00 Test Item Value Reference Range Interpretation Comments LACTIC ACID (test 2.1 mmol/L 0.7-2.0 HH Critical V alue reported code = LACT) toFirst Name:UTE D6486 Last Name:CHEL JUNG READ BACK AND AURORA ShuklaLAB.LAS1, on 01/15/20, @ 164 4. UA RFLX MICR CULT IF [id number] 16:42:00 Test Item Value Reference Range Interpretation [...] V alue reported code = LACT) toFirst Name:W[place] I8356 Last Name:[facility] READ BACK AND AURORA Love C.LAB.LAS1, on 01/15/20, @ 155 4. BASIC METABOLIC [id number] 15:50:00 Test Item Value Reference Range Interpretation [...] 9.6 mg/dL 8.4-10.2 N CA) LIVER FUNCTION [id number] 15:50:00 Test Item Value Reference Range Interpretation [...] U/L 38-126 N (test code = ALKP) [id number] 15:50:00 Test Item Value Reference Range Interpretation Comments LIPASE (test code = LIP) 47 U/L 23-300 N PROTHROMBIN [id number] 15:50:00 Test Item Value Reference Range Interpretation [...] Mechanica l prosthetic valv es (high risk) 2. 5 - 3.5 * If oral anticoagulant t herapy is elected to preventrecurren t myocardial infa rction, an INR of 2.5-3 .5 isrecommended, consistent with Food and Drug Administrationr ecommen dations. THROMBOPLASTIN TIME [id number] 15:50:00 Test Item Value Reference Range Interpretation Comments THROMBOPLASTIN TIME 31.8 SECONDS 23.4-37.0 N Therape utic Range PARTIAL (test code = for Hep katherine PTT) EFFECTIVE Heparin IU/mL a PTT Seconds0.3 64.3 0.7 88.8 BASIC METABOLIC [id number] 15:49:00 Test Item Value Reference Range Interpretation [...] 9.6 mg/dL 8.4-10.2 N CA) LIVER FUNCTION [id number] 15:49:00 Test Item Value Reference Range Interpretation [...] U/L 38-126 N (test code = ALKP) [id number] 15:49:00 Test Item Value Reference Range Interpretation Comments LIPASE (test code = LIP) U/L 23-300 CBC W/AUTO [id number] 15:30:00 Test Item Value Reference Range Interpretation [...] 3/uL 0.0-0.1 N - XR CHEST 1 [id number] 15:03:00 [facility] : 1995 Sex: F Sterling: ANDREZ St: PRE -- Name: NATIVIDAD GREGG : 1995 Age/S: 24/F [address] Unit #: [id number] Loc: [place] [address] Phys: Mason Schofield Acct: [id number] Dis Date: Status: PRE ER PHONE #: [phone] Exam Date: 01/15/2020 0477 FAX #: [phone] Reason: CODE SEPSIS EXAMS: CPT CODE: [id number] XR CHEST 1 V 20390 EXAM: Portable chest x-ray, one view INDICATION: CODE SEPSIS kidney pain, diagnosed with kidney stone LOCATION CODE: C3 COMPARISON: None TECHNIQUE: Single Portable AP upright viewof the chest DISCUSSION: Moderate increased bilateral perihilar marking is seen. Peribronchial thickening is noted. Interstitial thickening bilaterally are noted. Heart and mediastinal contours unremarkable. No pneumothorax or pleural effusion seen. Osseous structures are within normal limit. IMPRESSION: 1. Interstitial thickening suggest bronchitis and/or viral pneumonitis. at 1503 Reported and signed by: Mu Vallejo M.D. CC: Technologist: MANPREET COSBY; STUDENT 2ND YEAR [facility] Date/Time/By: 01/15/2020 (9290) : By: MistyHPD PAGE 1 Signed Report Sterling: St: PRE -- Name: NATIVIDAD GREGG : 1995 Age/S: 24/F [address] Unit #: [id number]: [place] [address] Phys: Mason Schofield Acct: [id number] Dis Date: Status: PRE ER PHONE #: [phone] Exam Date: 01/15/20201449 FAX #: [phone] Reason: CODE SEPSIS EXAMS: CPT CODE: [id number] XR CHEST 1 V 71520 <Continued> Orig Print D/T: S: 01/15/2020 (1507) PAGE 2 Signed Report- XR CHEST 1 [id number] 15:03:00 [facility] : 1995 Sex: F Sterling: St: DIS -- Name: NATIVIDAD GREGG [facility] : 1995 Age/S: 24/F [address] Unit #: [id number] Loc: [address] [place] [address] Phys: Mason Schofield Acct: [id number] Dis Date: 20200117 Status: DIS IN PHONE #: [phone] Exam Date: 01/15/20201449 FAX #: [phone] Reason: CODE SEPSIS EXAMS: CPT CODE: [id number] XR CHEST 1 V 66828 EXAM: Portable chest x-ray, one view INDICATION: CODE SEPSIS kidney pain, diagnosed with kidney stone LOCATION CODE: C3 COMPARISON: None TECHNIQUE: Single Portable AP upright view of the chest DISCUSSION: Moderate increased bilateral perihilar marking is seen. Peribronchia l thickening is noted. Interstitial thickening bilaterally are noted. Heart and mediastinal contoursunremarkable. No pneumothorax or pleural effusion seen. Osseous structures are within normal limit.IMPRESSION: 1. Interstitial thickening suggest bronchitis and/or viral pneumonitis. at 1503 Reported and signed by: Mu Vallejo M.D. CC: Technologist: HARJEET CASE; STUDENT 2ND YEAR Trnscrd Date/Time/By: 01/15/2020 (3219) : By: Jaydon PAGE 1 Signed Report [place]: St: DIS Name: NATIVIDAD GREGG [facility] : 1995 Age/S: 24/F [address] Unit #: [id number] Loc: [address] [place] [address] Phys: Mason Schofield Acct: [id number] Dis Date: 20200117 Status: DIS IN PHONE #: [phone] Exam Date: 01/15/2020 1450 FAX #: [phone] Reason: CODE SEPSIS EXAMS: CPT CODE: [id number] XR CHEST 1 V 78884 (Continued) Orig Print D/T: S: 01/15/2020 (7576) PAGE 2 Signed ReportLACTIC [id number] 01:50:00 Test Item Value Reference Range Interpretation Comments LACTIC ACID (test code = LACT) 1.2 mmol/L 0.7-2.0 N COMPREHENSIVE METABOLIC [id number] 00:45:00 Test Item Value Reference Range Interpretation [...] N (test code = ALKP) HCG SERUM [id number] 00:45:00 Test Item Value Reference Range Interpretation Comments HCG SERUM QUAL (test code = HCGQL) NEGATIVE NEGATIVE LACTIC [id number] 00:13:00 Test Item Value Reference Range Interpretation Comments LACTIC ACID (test 2.3 mmol/L 0.7-2.0 HH Critical V alue reported code = LACT) toFirst Name:AYAN K9646 Last Name:CHEL FABIANA READ BACK [employer] AURORA ShuklaLAB.WR, on , @ 0013. UA RFLX MICR CULT IF [id number] 00:06:00 Test Item Value Reference Range Interpretation [...] Dysuria/FrequencySOURCE OF URINE: CLEAN CATCH COMPREHENSIVE METABOLIC [id number] 23:43:00 Test Item Value Reference Range Interpretation [...] N (test code = ALKP) HCG SERUM [id number] 23:43:00 Test Item Value Reference Range Interpretation Comments HCG SERUM QUAL (test code = HCGQL) NEGATIVE CBC W/AUTO [id number] 23:38:00 Test Item Value Reference Range Interpretation [...] BA#) 0.06 x10 3/uL 0.0-0.1 N LACTIC [id number] 19:19:00 Test Item Value Reference Range Interpretation Comments LACTIC ACID (test code = LACT) 1.6 mmol/L 0.7-2.0 N UA RFLX MICR CULT IF [id number] 18:41:00 Test Item Value Reference Range Interpretation [...] Flank PainSOURCE OF URINE: CLEAN CATCHBASIC METABOLIC [id number] 18:39:00 Test Item Value Reference Range Interpretation [...] 10.0 mg/dL 8.4-10.2 N CA) LIVER FUNCTION [id number] 18:39:00 Test Item Value Reference Range Interpretation [...] U/L 38-126 N (test code = ALKP) [id number] 18:39:00 Test Item Value Reference Range Interpretation Comments LIPASE (test code = LIP) 81 U/L 23-300 N BASIC METABOLIC [id number] 18:37:00 Test Item Value Reference Range Interpretation [...] 10.0 mg/dL 8.4-10.2 N CA) LIVER FUNCTION [id number] 18:37:00 Test Item Value Reference Range Interpretation [...] U/L 38-126 N (test code = ALKP) [id number] 18:37:00 Test Item Value Reference Range Interpretation Comments LIPASE (test code = LIP) U/L 23-300 - CT ABD PELVIS W/O [id number] 18:36:00 [facility] : 1995 Sex: F FAX: Mayelin Santos [phone] Sterling: St: PRE Name: NATIVIDAD GREGG [facility] : 1995 Age/S: 24/F [address] Unit: [id number] Loc: [place] [address] Phys: Mayelin Tyler CHANNEL PROGRAM MANAGER Acct: [id number] Dis Date: Status: PRE ER PHONE #: [phone] Exam Date: FAX #: [phone] Reason: flank pain EXAMS: CPT CODE: [id number] CT ABD PELVIS W/O CONT 99200Nflkgmjcjcw: Abdomen and pelvic CT without contrast Location code: S17 Comparison: Abdomen and pelvic CT July 22, 2012 Technique: Axial noncontrast contiguous images were obtained through the abdomen andpelvis followed by coronal and sagittal reformations. All CT scans are performed using radiation dose reduction technique. Technical factors are evaluated and adjusted to insure appropriate moderation of exposure. Automated dose management technology is applied to adjust the radiation dose to minimizeexposure while achieving a diagnostic quality image. Discussion: [...] 1 Signed Report (CONTINUED) FAX: Mayelin Santos [phone] Sterling: St: PRE------- Name: NATIVIDAD GREGG [facility] : 1995 Age/S: 24/F [address] Unit: [id number] Loc: [place] [address] Phys: Mayelin Tyler NP Acct: [id number] Dis Date: Status: PRE ER PHONE #: [phone] Exam Date: 01/13/2020 1820 FAX #: [phone] Reason: flank pain EXAMS: CPT CODE: [id number] CT ABD PELVIS W/O CONT 18980 (Continued) CC: Mayelin Tyler NP Technologist: Rosa Savage Trnscrd Dt/Tm: 01/13/2020 (1835) Chris.JH12 Orig Print D/T: S: 01/13/2020 (9 PAGE 2 Signed ReportUA RFLX MICR CULT IF [id number] 18:33:00 Test Item Value Reference Range Interpretation [...] 0.08 x10 3/uL 0.0-0.[address] Stone ProtocolCH[facility] : 1995 Sex: FZOYA [facility] Pt Name: NATIVIDAD GREGG [address] [facility] Phys: [place] [address] : 1995 Age: 25 SEX:F [phone] Exam Date: 01/17/21 Status: REG ER Acct: [id number] Loc: RAS HERNANDEZ Pt Unit #: [id number] Report #: [id number] CC: Dennis Forman DO CAT SCAN REPORT Order # Category/Exam [id number] CT/CT Stone Protocol ([id number]): . Results CT ABDOMEN NONCONTRAST CT PELVIS NONCONTRAST: (Urolithiasis protocol) DATE: 01/17/2021 HISTORY:Left flank pain TECHNIQUE: IV injection of iodinated contrast media: None Oral contrast media: NoneFINDINGS: Other than for urolithiasis, the lack of IV and oral contrast limits the evaluation. Liver: No contour abnormalities. Spleen: No splenomegaly. Pancreas: No contour abnormalities. Adrenals: No mass. Kidneys: Multiple punctate bilateral renal calculi, left more than right, on the order of 2 mm each. No overt hydronephrosis. Ureters: No calculi. Bladder: No calculi. Abdominal aorta: No aneurysm. Small bowel: No dilation. Colon: No adjacent fat stranding. Appendix: No dilation or adjacent fatstranding. Free air: None Free fluid: None Lumbar spine: Vertebral body heights are maintained. No high-grade central spinal canal stenosis. IMPRESSION: 1. Bilateral nephrolithiasis consisting of multiple tiny bilateral renal calculi. 2. No obstructive uropathy Reported By: Juan Pablo Arnold Electronically Sig jennifer: 01/17/2021 6:32 PM Reported By: Juan Pablo Arnold MD Electronically Signed Date/Time: 01/17/21 183 Technologist: BOBBY Dictated Date/Time: 01/17/21 1826 Transcribed Date/Time:
[2022-04-11 18:14] LABS: Urine Blood Trace-intact (Negative); Urine Glucose Negative (Negative); Urine Protein Trace (Negative)
[2022-04-11] MEDS ORDERED: FENTANYL CITR 100 MCG/2 ML ONE (18:34)
[2022-04-11] MEDS ORDERED: ONDANSETRON 4 MG/2 ML VIAL ONE (18:34)
[2022-04-11 18:43] LABS: Absolute Lymphocytes (CBC) 2.5 K/uL (0.7-4.9); Hematocrit 37.2 % (36.0-45.0); Lymphocytes % 29.5 % (15.3-44.8); MCV 84.1 fL (80-100); MPV 7.4 fL (7.6-11.3); RBC Red Blood Cell Count 4.42 M/uL (3.86-4.86)
[2022-04-11 18:49] LABS: Urine Bacteria <20 /HPF (<20); Urine Mucus Slight /HPF (None Seen)
[2022-04-11 18:50] LABS: Albumin 3.9 g/dL (3.4-5.0); Bilirubin Total 0.2 mg/dL (0.2-1.0); Potassium 4.2 mmol/L (3.5-5.1); Protein, Total 8.3 g/dL (6.4-8.2)
--- NOTE | 2022-04-11 18:57 | RAD REPORT ---
EXAM DESCRIPTION: US - Renal Ultrasound-Complete - 04/11/2022 6:48 pm CLINICAL HISTORY: PAIN COMPARISON: Renal Ultrasound-Complete dated 01/06/2021 FINDINGS: Both kidneys are normal in size, shape and echotexture. The right kidney measures 9.8 cm. No hydronephrosis, focal mass or perinephric fluid. The left kidney measures 9.8 cm. No hydronephrosis, focal mass or perinephric fluid. The urinary bladder is incompletely distended without gross abnormality seen. IMPRESSION: Unremarkable renal sonogram. No hydronephrosis .
--- NOTE | 2022-04-11 19:33 | ER ---
Nurse's Notes [facility] Name: Ana Lilia Kline Age: 26 yrs Sex: Female : 1995 Arrival Date: 04/11/2022 Time: 17:57 Bed 16 Private MD: Diagnosis: Flank Pain Presentation: 04/11 18:00 Chief complaint: Left sided abdominal pain that radiates to back x 45 minutes. hb Coronavirus screen: At this time, the client does not indicate any symptoms associated with coronavirus-19. Ebola Screen: No symptoms or risks identified at this time. Initial Sepsis Screen: Does the patient meet any 2 criteria? No. Patient's initial sepsis screen is negative. Does the patient have a suspected source of infection? No. Patient's initial sepsis screen is negative. Risk Assessment: Do you want to hurt yourself or someone else? Patient reports no desire to harm self or others. Onset of symptoms was April 11, 2022. 18:00 Method Of Arrival: Ambulatory hb 18:00 Acuity: KATY 3 hb Triage Assessment: 19:12 General: Behavior is appropriate for age. ke1 Historical: - Allergies: 18:01 Demerol; hb 18:01 Doxycycline; hb 18:01 Haldol; hb 18:01 Morphine; hb 18:01 Reglan; hb 18:01 Toradol; hb 18:01 Zithromax; hb - Immunization history:: Client reports having NOT received the Covid vaccine. - Social history:: Smoking status: Patient denies any tobacco usage or history of. Screenin:11 [facility] ED Fall Risk Assessment (Adult) History of falling in the last 3 months, ke1 including since admission No falls in past 3 months (0 pts) Confusion or Disorientation No (0 pts) Intoxicated or Sedated No (0 pts) Impaired Gait No (0 pts) Mobility Assist Device Used No (0 pt) Altered Elimination No (0 pt) Score/Fall Risk Level 0 - 2 = Low Risk. Abuse screen: Denies threats or abuse. Nutritional screening: No deficits noted. Tuberculosis screening: No symptoms or risk factors identified. Assessment: 18:30 Reassessment: Patient is alert, oriented x 3, equal unlabored respirations, skin aa5 warm/dry/pink. General: Appears uncomfortable. Pain: Noted to be moaning, restless. 19:08 Pain:. GI: Reports. GI: Bowel sounds present X 4 quads. Abd is soft Abdomen is tender ke1 to palpation in right upper quadrant and left upper quadrant Reports upper abdominal pain. 19:11 Reassessment: MARKET RISK SPECIALIST is room to assess patient pain. ke1 19:51 Reassessment: Patient states feeling better. Patient states symptoms have improved. ke1 Vital Signs: 18:00 BP 138 / 88; Pulse 116; Resp 20; Temp 98.8; Pulse Ox 100% on R/A; Weight 99.79 kg; hb Height 5 ft. 2 in. (157.48 cm); Pain 9/10; 19:09 BP 137 / 104; Pulse 107; Resp 19; Pulse Ox 100% ; Pain 10/10; ke1 18:00 Body Mass Index 40.24 (99.79 kg, 157.48 cm) hb ED Course: 17:57 Patient arrived in ED. rg4 17:59 Meggan Randhawa [facility]-C [facility] kb 17:59 Rayo Cotto MD is Attending Physician. kb 18:01 Triage completed. hb 18:01 Arm band placed on. hb 18:13 Urine collected: clean catch specimen, clear. tm3 18:30 Initial lab(s) drawn, by pa, sent to lab. Inserted saline lock: 22 gauge in left wrist, aa5 using aseptic technique. Blood collected. 18:33 Jaky Galeana, RN is Primary Nurse. kr3 18:50 Rp Exam Complete In Process Unspecified. EDMS 19:12 Bed in low position. Call light in reach. ke1 19:49 No provider procedures requiring assistance completed. IV discontinued. ke1 Administered Medications: 18:35 Drug: Zofran (Ondansetron) 4 mg Route: IVP; Site: left wrist; aa5 18:37 Drug: fentaNYL (PF) 50 mcg Route: IVP; Site: left wrist; aa5 19:49 Drug: Dilaudid (HYDROmorphone) 1 mg Route: IM; Site: left deltoid; ke1 19:50 Follow up: Response: Medication administered at discharge. ke1 Medication: 19:50 VIS not applicable for this client. ke1 Outcome: 19:32 Discharge ordered by . kb 19:50 Discharged to home ambulatory. ke1 19:50 Condition: good 19:50 Discharge instructions given to patient. 19:51 Patient left the ED. ke1 Signatures: Dispatcher [employer] EDMS Meggan Randhawa, OYSTER UNLOADER-C OYSTER UNLOADER-CkBill Jesus 3 Duyen Lindquist, RN RN aa5 Vy Graham, RN Allie Sepulveda4 Gus Foss RN RN ke1 Jaky Galeana RN RN kr3
--- NOTE | 2022-04-11 19:33 | EDPHYS ---
Physician Documentation [facility] Name: Ana Lilia Kline Age: 26 yrs Sex: Female : 1995 Arrival Date: 04/11/2022 Time: 17:57 Bed 16 Private MD: ED Physician Rayo Cotto HPI: 04/11 23:33 This 26 yrs old Female presents to ER via Ambulatory with complaints of Abdominal Pain, kb Back Pain. 23:33 The patient complains of pain in the left flank. The pain does not radiate. kb 23:34 Onset: The symptoms/episode began/occurred today. Modifying factors: The symptoms are kb alleviated by nothing. the symptoms are aggravated by nothing. Associated signs and symptoms: Pertinent positives: dysuria. Severity of pain: At its worst the pain was severe in the emergency department the pain is unchanged. The patient has experienced similar episodes in the past. The patient has not recently seen a physician. 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 Reports dysuria, but states that she has that most of the time unless she is on antibiotics. Historical: - Allergies: 18:01 Demerol; hb 18:01 Doxycycline; hb 18:01 Haldol; hb 18:01 Morphine; hb 18:01 Reglan; hb 18:01 Toradol; hb 18:01 Zithromax; hb - Immunization history:: Client reports having NOT received the Covid vaccine. - Social history:: Smoking status: Patient denies any tobacco usage or history of. ROS: 23:31 Back: Positive for flank pain, on the left. kb 23:32 Constitutional: Negative for fever, chills, and weight loss. kb 23:32 All other systems are negative. Exam: 23:32 Constitutional: This is a well developed, well nourished patient who is awake, alert, kb and in no acute distress. Head/Face: Normocephalic, atraumatic. ENT: Moist Mucous membranes Cardiovascular: Regular rate and rhythm with a normal S1 and S2. No gallops, murmurs, or rubs. No pulse deficits. Respiratory: Respirations even and unlabored. No increased work of breathing. Talking in full sentences Abdomen/GI: Soft, non-tender. No distention Skin: Warm, dry with normal turgor. Normal color. MS/ Extremity: Pulses equal, no cyanosis. Neurovascular intact. Full, normal range of motion. Neuro: Awake and alert, GCS 15, oriented to person, place, time, and situation. Moves all extremities. Normal gait. Psych: Awake, alert, with orientation to person, place and time. Behavior, mood, and affect are within normal limits. 23:32 Back: CVA tenderness, that is moderate, that is severe, is noted on the left. Vital Signs: 18:00 BP 138 / 88; Pulse 116; Resp 20; Temp 98.8; Pulse Ox 100% on R/A; Weight 99.79 kg; hb Height 5 ft. 2 in. (157.48 cm); Pain 9/10; 19:09 BP 137 / 104; Pulse 107; Resp 19; Pulse Ox 100% ; Pain 10/10; ke1 18:00 Body Mass Index 40.24 (99.79 kg, 157.48 cm) hb MDM: 18:03 Patient medically screened. kb 19:33 I considered the following discharge prescriptions or medication management in the emergency department I discussed and recommended Over The Counter medications, Pain Medications: At this time, prescription pain medications are not recommended, CARDIOVASCULAR LAB DIRECTOR aware reviewed. Pt was prescribed Tylenol with codeine on 04/05/22, 03/28/22 and 02/24/22, as well as, hydrocodone on 03/15/22 and 03/02/22.. Test considered but Not performed: CT: CT stone considered, but pt reports she has had multiple CT scans in the past and prefers not to have another one. 23:32 Differential diagnosis: Pyelonephritis, Ureterolithiasis, urinary tract infection. Data reviewed: vital signs, nurses notes. External Records Reviewed: CARDIOVASCULAR LAB DIRECTOR aware reviewed. Counseling: I had a detailed discussion with the patient and/or guardian regarding: the historical points, exam findings, and any diagnostic results supporting the discharge/admit diagnosis, lab results, radiology results, the need for outpatient follow up, a family practitioner, a urologist, to return to the emergency department if symptoms worsen or persist or if there are any questions or concerns that arise at home. 04/11 18:05 Order name: CBC with Diff; Complete Time: 18:50 kb 04/11 18:05 Order name: CMP; Complete Time: 18:52 kb 04/11 18:05 Order name: Lipase; Complete Time: 18:52 kb 04/11 18:14 Order name: Urine --Ancillary (enter results) eb 04/11 18:14 Order name: Urine Dipstick-Ancillary; Complete Time: 18:21 EDMN 04/11 18:15 Order name: Urine Microscopic Only; Complete Time: 18:59 kb 04/11 18:05 Order name: IV Saline Lock; Complete Time: 18:33 kb 04/11 18:05 Order name: Labs collected and sent; Complete Time: 18:33 kb 04/11 18:05 Order name: Urine Dipstick-Ancillary (obtain specimen); Complete Time: 18:34 kb 04/11 18:14 Order name: US Rp Exam Complete; Complete Time: 18:59 kb 04/11 18:59 Order name: Urine Culture EDMN 04/11 18:05 Order name: Urine Test (obtain specimen); Complete Time: 18:34 kb Administered Medications: 18:35 Drug: Zofran (Ondansetron) 4 mg Route: IVP; Site: left wrist; aa5 18:37 Drug: fentaNYL (PF) 50 mcg Route: IVP; Site: left wrist; aa5 19:49 Drug: Dilaudid (HYDROmorphone) 1 mg Route: IM; Site: left deltoid; ke1 19:50 Follow up: Response: Medication administered at discharge. ke1 Disposition Summary: 04/11/22 19:32 Discharge Ordered Location: Home kb Condition: Stable kb Diagnosis - Flank Pain kb Followup: kb - With: Emergency Department - When: As needed - Reason: Worsening of condition Followup: kb - With: Private Physician - When: 2 - 3 days - Reason: Recheck today's complaints, Continuance of care, Re-evaluation by your physician Discharge Instructions: - Discharge Summary Sheet kb - Flank Pain, Adult, [id number] kb Forms: - Medication Reconciliation Form kb - Thank You Letter kb - Antibiotic Education kb - Prescription Opioid Use kb Prescriptions: - Augmentin 875-125 mg Oral Tablet - take 1 tablet by ORAL route every 12 hours for 10 days; 20 tablet; Refills: 0, kb Product Selection Permitted Signatures: Dispatcher [employer] [facility] Meggan Randhawa FNP-C FNP-Duyen Franco RN RN aa5 Vy Graham RN Gus Reynolds RN RN ke1 Corrections: (The following items were deleted from the chart) 23:32 23:31 Constitutional: Negative for fever, chills, and weight loss, ENT: Negative for kb injury, pain, and discharge, Cardiovascular: Negative for chest pain, palpitations, and edema, Respiratory: Negative for shortness of breath, cough, wheezing, and pleuritic chest pain, Abdomen/GI: Negative for abdominal pain, nausea, vomiting, diarrhea, and constipation, MS/Extremity: Negative for injury and deformity, Skin: Negative for injury, rash, and discoloration, Neuro: Negative for headache, weakness, numbness, tingling, and seizure, kb
[2022-04-11] MEDS ORDERED: HYDROMORPHONE HCL 1 MG/ML INJ ONE (19:43)
[2022-04-11 19:55] VITALS: TEMP 98.8; O2SAT 100
[2022-04-11 19:57] VITALS: BP 137/104
== END 2022-04-11 19:51 | disposition home or self-care (01) ==
LOC: ER 17:56
DX: R10.9 Unspecified abdominal pain (principal); Z88.1 Allergy status to other antibiotic agents; Z88.5 Allergy status to narcotic agent
CPT/HCPCS: 87088; 85025; 87086; 36415; 81025; 83690; 80053; 76770; 96375; 96372; 96374; 99284; J3010; J1170; J2405; 81003; 81015; 87077; 87186

== ENCOUNTER 2022-11-28 14:10 | Emergency (ER) | payer OTHER ==
--- OUTSIDE RECORDS SUMMARY | 2022-11-28 14:17 | XMS REPORT | Continuity of Care Document ---
:1995 Author Organization [facility] t Address [address] [facility] [address] [place] [address] Care Team Providers Name Role Phone Provider, Unknown Primary Care Physician Unavailable PEG LEE Attending Clinician Unavailable Peg Lee MD Attending Clinician Johnathan Madrid Attending Clinician Unavailable WAN BRYANT Attending Clinician Unavailable Wan Bryant DO Attending Clinician Dennis Forman Attending Clinician Unavailable Oli Kay Attending Clinician Unavailable MANOLO CORTES Attending Clinician Unavailable DAVID PHELAN Attending Clinician Unavailable Soren BECKFORD, Leah Mcgee Attending Clinician [phone] Sean Patterson DOeDavonte Attending Clinician Jorge A BECKFORD, Darron Gooden Attending Clinician Mary Harmon Attending Clinician Doctor Unassigned, [place] Attending Clinician Unavailable Anita Kruse Attending Clinician Unavailable Bradly Sebastian Attending Clinician Unavailable Physician, No Primary or Family Admitting Clinician Unavaila ble Referred, Self Admitting Clinician Unavailable MICA MAYA Admitting Clinician Unavailable WAN BRYANT Admitting Clinician Unavailable Bradly Sebastian Admitting Clinician Unavailable Payers Payer Name Policy Type Policy Number Effective Date Expiration Date S charles [facility] [id number] 2021 00:00:00 [place] [id number] 2018 00:00:00 Problems Condition Condition Condition Status Onset Resolution Last Treating Co mments Source Name Details Category Date Date Treatment Clinician Date Preeclamps Preeclamps Disease Active 2015-03 U nivers ia ia 2-04 ity of 00:00: [address] Preeclamps Preeclamps Disease Active 2015-03 U nivers ia, third ia, third 2-03 ity of trimester [facility] Acute Acute Disease Active 2015-03 Univers headache headache 2-02 ity of 00:00: [address] Papilledem Papilledem Disease Active 2015-03 U nivers a a 2-02 ity of 00:00: [address] 36 weeks 36 weeks Disease Active 2015-03 Unive rs gestation gestation 1-29 ity of of of 00:00: [place] 00 [facility] 26 weeks 26 weeks Disease Active Unive rs gestation gestation 9-20 ity of of of 00:00: [place] 00 [facility] Hematuria Hematuria Disease Active Uni vers 9-20 ity of 00:00: [address] Lower Lower Disease Active Univers abdominal abdominal 9-20 ity of pain pain 00:00: [address] Nausea and Nausea and Disease Active U nivers vomiting vomiting 9-06 ity of during during 00:00: [place] 00 [facility] Diarrhea Diarrhea Disease Active Unive rs 9-06 ity of 00:00: [place] 00 [facility] Dehydratio Dehydratio Disease Active 2016-0 U nivers n n 9-06 ity of 00:00: [place] 00 [facility] Pseudotumo Pseudotumo Disease Active 2016-0 U nivers r cerebri r cerebri 9-06 ity of 00:00: [place] 00 [facility] Branch 24 weeks 24 weeks Disease Active 2015-0 Unive rs gestation gestation 9-06 ity of of of 00:00: [place] 00 [facility] Epigastric Epigastric Disease Active 2015-0 U nivers abdominal abdominal 9-06 ity of pain pain 00:00: [place] 00 Medical Branch Gastroente Gastroente Disease Active 2016-0 U nivers ritis ritis 9-06 ity of 00:00: [place] 00 [facility] Headache Headache Disease Active 2015- Unive rs 8-20 ity of 00:00: [place] 00 Medical [facility] Blurry Blurry Disease Active Univers vision, vision, 8-20 [place]y of bilateral bilateral 00:[place] 21 weeks 21 weeks Disease Active 0 Unive rs gestation gestation 8-20 ity of of of 00:00: [place] 00 [facility] Allergies, Adverse Reactions, Alerts Allergy Allergy Status Severity Reaction(s) Onset Inactive Treating Comm ents Source Name Type Date Date Clinician Morphine Propensi Active Hives Univer s ty to 1-28 ity of adverse 00:00: [place] reaction 00 [facility] Branch MORPHINE DRUG Active Hives Univers INGREDI 1-28 ity of 00:00: [place] 00 Medical Branch No Known DA Active U [facility] Allergie 7-05 [place] s 00:00: [facility] 00 are Hobbs Unable DA Active U [facility] to 2-20 Assess 00:00: 00 doxycycl DA Active MO 2019-03 [facility] ine 1 [place] 00:[facility]: d [facility] azithrom DA Active MO 2019-03 [facility] ycin 03-16 [place] 00:00: d 00 [facility] doxycycl DA Active MO HIVES, RASH 2019-03 [facility] ine 03-16 [place] 00:[facility]: d 00 [facility] azithrom DA Active MO HIVES, RASH 2020- [facility] ycin 03-16 [facility] 00:00: d 00 Medical [place] metoclop DA Active U 2019- H[facility] ramide 03-16 [facility] 00:00: d 00 Medical [place] metoclop DA Active U MUSCLE SPASM 2019- HC A ramide 03-16 [facility] 00:00: d 00 [facility] Azithrom Propensi Active Anaphylaxis 2019-0 M ethodi ycin ty to 16 st adverse 00:00: Hospita reaction 00 l s to drug Doxycycl Propensi Active GI 2019-0 Method i ine ty to Intolerance 05-01 st adverse 00:00: Hospita reaction 00 l s to drug Ketorola Propensi Active Hives 2019-0 Method i c ty to 05-01 st adverse 00:00: Hospita reaction 00 l s to drug KETOROLA DRUG Active Hives 2018- Univers C INGREDI 08-29 ity of 00:00: [place] 00 [facility] Ketorola Propensi Active Hives 2018-0 Univer s c ty to 08-29 ity of adverse 00:00: [place] reaction 00 [facility] doxycycl DA Active SV 2016- HCA ine 2-09 Clear 00:00: Ng 00 [facility] doxycycl DA Active SV THROAT [facility]CA ine CLOSES 2-09 Clear 00:00: Ng 00 [facility] Doxycycl Drug Active Shortness Of 2017-[address] [facility] Allergy Breath 1-17 [facility] 00:[facility]: Medical [address] [place] [address] Azithrom Drug [place] [address] [facility] [address] [facility] Allergy Breath 1-17 [facility] 00:[facility]: Medical 00 [place] IODINE DRUG Active Swelling 2015-03 Univers INGREDI 2- ity of 00:00: [place] 00 [facility] Iodine Propensi Active Swelling 2015-03 Univer s ty to 2 ity of adverse 00:00: [place] reaction [facility] DOXYCYCL DRUG Active Anxiety 2014-03 Univers INE INGREDI 2- ity of 00:00: [place] 00 [facility] AZITHROM DRUG Active Swelling 2014-03 Univer s YCIN INGREDI 05-08 ity of 00:00: [place] 00 Medical [place] Doxycycl Propensi Active Anxiety 2014-03 Unive rs ine ty to 05-08 ity of adverse 00:00: [place] reaction 00 [facility] Propensi Active Swelling 2014- Univ ers ycin ty to 2-23 ity of adverse 00:00: [place] reaction 00 [facility] DA Active SV 2012- HCA ycin 07-22 Clear 00:00: Ng 00 [facility] SV SWE[facility] ycin 07-22 Clear 00:00: Ng 00 [facility] Social History Social Habit Start Date Stop Date Quantity Comments Source Gender [facility] History of tobacco Cigarette Smoker [facility] use Hospital History SDOH [facility] Alcohol Std Drinks Hospit al History SDOH [facility] Alcohol Binge Hospital Exposure to 2022-04-02 2022-04-12 Not sure University of SARS-CoV-2 (event) 00:00:00 14:31:00 [facility] History of Social 2020-11-25 2020-11-[address] function 00:00:00 00:00:00 Hospital Cigarettes smoked 2020-10-21 2020-10-[address] current (pack per 00:00:00 00:00:00 [facility] day) - Reported Cigarette 2020-10-21 2020-10-21 [facility] pack-years 00:00:00 00:00:00 Hospital Tobacco use and 2020-10-21 2020-10-21 Smokeless [facility] exposure 00:00:00 00:00:00 tobacco non-user Hospital History SDOH 2020-10-21 2020-10-21 1 [facility] Alcohol Frequency 00:00:00 00:00:00 Hospita Alcohol intake 2016-04-01 2016-04-01 Current ZOYA Gunderson es 00:00:00 00:00:00 non-drinker of Medical Ce nter alcohol (finding) Tobacco Comment 2015-11-03 2015-11-03 currently Universit y of 00:00:00 00:00:00 smoking [facility] Sex Assigned At [address] [facility] 00:00:00 00:00:00 Medical Center Smoking Status Start Date Stop Date Source Unknown if ever smoked [facility] Ex-smoker 2020-10-21 00:00:00 2020-10-21 00:00:[facility] Current every day 2016-04-01 00:00:00 [facility] Medications Ordered Filled Start Stop Current Ordering Indication Dosage Frequency Signature Comments Components Source Medication Medication Date Date Medication? Clinician (SIG) Name Name naproxen 2020-03- No 500mg 500 mg, Univ ers (NAPROSYN) 03-21 Oral, ity of tablet 500 04:30: 03:25 ONCE, 1 [place] as mg 00 :00 dose, On Medical Fri Branch 01/18/21 at 2330, Routine morpHINE 2020-03- No 4mg 4 mg, Slow Un martin injection 4 03-21 IV Push, ity of mg 03:15: 02:15 ONCE, 1 [place] 00 :00 dose, On Medical Fri Branch 01/18/21 at 2215, STAT iohexol 2020-03- No [id number] 120mL 120 mL, Univers (OMNIPAQUE 03-21 Intravenou it y of 350 02:30: 02:21 s, ONCE, 1 [place] BULK-100 00 :00 dose, On Medical mL) Fri Branch injection 01/18/21 at 120 mL 2130, Routine NaCl 0.9% 2020-03 No 1000mL at 999 Uni vers (NS) bolus 03-21 mL/hr, ity of infusion 02:30: 03:10 1,000 mL, [place] 1,000 mL 00 :00 IV Medical Piggyback, Branch ONCE, 1 dose, On 01/18/21 at 2130, STAT ondansetron 2020-03- No 4mg 4 mg, Slow Univers (ZOFRAN 03-21 IV Push, ity of (PF)) 01:30: 01:45 ONCE, 1 [place] injection 4 00 :00 dose, On Medi nirmala mg Fri Branch 01/18/21 at 2030, Routine morpHINE 2020-03 Yes 4mg 4 mg, Slow Uni vers injection 4 03-21 IV Push, ity of mg 01:26: Q4HPRN, [place] 41 Starting Medical on Fri Branch 01/18/21 at 2025, Until Discontinu ed, Routine, Pain (scale 7-10) [place] [id number] 1{tbl} Q4H Take 1 M ethodi en-codeine 9-[address] (TYLENOL 21:14: mouth Hospita WITH 44 every 4 l CODEINE #3) (four) 300-30 mg hours as per tablet needed for moderate pain .acute pain. acetaminoph 2020-0 Yes [id number] 1{tbl} Q4H Take 1 M ethodi en-codeine 9-[address] (TYLENOL 21:14: mouth Hospita WITH 44 every 4 l CODEINE #3) (four) 300-30 mg hours as per tablet needed for moderate pain .acute pain. cyclobenzap 2021-0 Yes 5mg Q.[id number] Take 5 mg Methodi rine 9-[id number] mouth [address] (FLEXERIL) 20:58: 3D (three) Hosp gre[facility] 5 mg tablet 31 times a l day as needed for muscle spasms. cyclobenzap 2021-0 Yes 5mg Q.[id number] Take 5 mg Methodi rine 9-[id number] mouth [address] (FLEXERIL) 20:58: 3D (three) [facility]osp [facility] 5 mg tablet 31 times a l day as needed for muscle spasms. gabapentin 2021-0 Yes 600mg Q.[id number] Take 600 Methodi (NEURONTIN) 9-12 [id number] mg by s t 600 mg 20:57: 3D mouth 3 Hospita tablet 50 (three) l times a day. DULoxetine 2021-0 Yes 60mg QD Take 60 mg M ethodi (CYMBALTA) 9-[address] 60 MG 20:57: daily. Hospita capsule 50 l gabapentin 2021-0 Yes 600mg Q.[id number] Take 600 Methodi (NEURONTIN) 9-12 [id number] mg by s t 600 mg 20:57: 3D mouth 3 Hospita tablet 50 (three) l times a day. DULoxetine 2021-0 Yes 60mg QD Take 60 mg M ethodi (CYMBALTA) 9-[address] 60 MG 20:57: daily. Hospita capsule 50 l HYDROcodone 2020-0 2020- No 1{tbl} 1 tablet, Univers -acetaminop 6-16 06-16 Oral, ity of hen (NORCO 16:15: 15:21 ONCE, 1 [place] 5) 5-325 mg 00 :00 dose, Wed Med ical tablet 1 08/29/20 at [facility] h tablet 1115, NIKITA FENTanyl PF 2020- No 50ug 50 mcg, Un martin (SUBLIMAZE 08-29 Slow IV ity o f (PF)) 15:45: 14:46 Push, [place] injection 00 :00 ONCE, 1 Medical 50 mcg dose, [facility] 08/29/20 at 1045, STAT FENTanyl PF 2020- No 50ug 50 mcg, Un martin (SUBLIMAZE 08-29 Slow IV ity o f (PF)) 10:15: 09:14 Push, [place] injection 00 :00 ONCE, 1 Medical 50 mcg dose, [facility] 08/29/20 at 0515, Routine HYDROcodone 2020- No 1{tbl} 1 tablet, Univers -acetaminop 08-29 Oral, ity of hen (NORCO 06:00: 05:06 ONCE, 1 [place] as 5) 5-325 mg 00 :00 dose, Thu Med ical tablet 1 08/29/20 at [facility] tablet 0100, NIKITA gadoteridol 2020- No [id number] .2mL/kg 24.4 mL Univers (PROHANCE-2 08-29 (0.2 mL/kg i ty of 0 mL) 04:45: 04:30 ?122 kg), [place] injection 00 :00 Intravenou Medi nirmala 24.4 mL s, ONCE, 1 Branch dose, [facility] 08/28/20 at 2345, Routine FENTanyl PF 2020- No 50ug 50 mcg, Un martin (SUBLIMAZE 08-29 Slow IV ity o f (PF)) 03:15: 02:29 Push, [place] injection 00 :00 ONCE, 1 Medical 50 mcg dose, [facility] 08/28/20 at 2215, Routine morpHINE 2020- No 4mg 4 mg, Slow Un martin injection 4 08-29 IV Push, ity of mg 01:45: 00:47 ONCE, 1 [place] 00 :00 dose, [facility] Medical 08/28/20 at Branch 2045, STAT piperacilli 2020- No 3.375g 3.375 g, Univers n-tazobacta 6-16 06-16 IV ity of m (ZOSYN) 01:15: 01:17 Piggyback, [place] 3.375 g in 00 :00 ONCE, 1 Medica l NaCl 0.9% dose, Tue Branc h (NS) 100 mL 08/28/20 at MINI-BAG [...] 50 mcg dose, Tue Branch 08/28/20 at 1700, Routine ondansetron 2020- [...] No 25mg 25 mg, Uni vers MINE 2-13 02-13 Oral, ity of (BENADRYL) 05:30: 04:44 ONCE, [...] ity of mg 04:00: 03:03 ONCE, 1 [place] 00 :00 dose, Fri Medical 04/27/20 at Branch 2200, STAT acetaminoph 2020- No 1{tbl} 1 tablet, Univers en-codeine 04-28 Oral, ity of (TYLENOL 03:45: 04:43 ONCE, 1 [place] #3) 300-30 00 :00 dose, Fri Medi nirmala mg tablet 1 04/27/20 at Br [facility] tablet 2145, NIKITA NaCl 0.9% 2020- No 1000mL at 999 Uni vers (NS) bolus 04-28 mL/hr, ity of infusion 03:00: 05:12 1,000 mL, [place] as 1,000 mL 00 :00 IV Medical Infusion, [place] ONCE, 1 dose, 04/27/20 at 2100, NIKITA HYDROcodone 2018- Yes [id number] 1{tbl} Take 1 Univers -acetaminop 6-17 tablet by ity of hen (NORCO) 00:00: mouth [place] 10-325 mg 00 every 6 Medical tablet (six) Branch hours as needed for Pain (scale 7-10). HYDROcodone 2018- Yes [id number] 1{tbl} Take 1 Univers -acetaminop 6-17 tablet by ity of hen (NORCO) 00:00: mouth [place] 10-325 mg 00 every 6 Medical tablet (six) Branch hours as needed for Pain (scale 7-10). HYDROcodone 2018- Yes [id number] 1{tbl} Take 1 Univers -acetaminop 6-17 tablet by ity of hen (NORCO) 00:00: mouth [place] 10-325 mg 00 every 6 Medical tablet (six) Branch hours as needed for Pain (scale 7-10). HYDROcodone Yes [id number] 1{tbl} Take 1 Univers -acetaminop 6-17 tablet by ity of hen (NORCO) 00:00: mouth [place] 10-325 mg 00 every 6 Medical tablet (six) Branch hours as needed for Pain (scale 7-10). HYDROcodone Yes [id number] 1{tbl} Take 1 Univers -acetaminop 6-17 tablet [...] (N/V) for up to 12 doses. acetaminoph 2017- Yes 1{tbl} Take 1 Un martin en-codeine [...] (N/V) for up to 12 doses. acetaminoph 2016- Yes 1{tbl} Take 1 Un martin en-codeine 2-05 tablet by ity of 300-30 mg 00:00: mouth [place] tablet 00 every 6 Medical (six) Branch hours as needed for Pain (scale 4-6) for up to 10 doses. ACETAZOLAMI 2017 Yes Take by [facility] 21:[facility]: [address] ACETAZOLAMI 2017-0 Yes Take by [facility] 1-17 [facility]. [facility] 21:52: [address] ACETAZOLAMI 2017-0 Yes Take by [facility] ORAL 1-17 [facility]. [facility] 21:52: [address] ACETAZOLAMI 2017-0 Yes Take by [facility] ORAL 1-17 [facility]. [facility] 21:52: [address] Nitrofurant 2015-03 Yes 100mg Take 1 [...] Branch hours as needed for Alternate with Wedron for pain scale 1-3. tamsulosin 2015-03 Yes [...] Branch hours as needed for Alternate with Wedron for pain scale 1-3. tamsulosin 2015-03 Yes [...] Branch hours as needed for Alternate with Wedron for pain scale 1-3. tamsulosin 2015-03 Yes [...] Branch hours as needed for Alternate with Wedron for pain scale 1-3. tamsulosin 2015-03 Yes [...] Branch hours as needed for Alternate with Wedron for pain scale 1-3. tamsulosin 2015-03 Yes [...] Pain (scale 1-3) or Pain (scale 4-6). AmericoORpemi 2015-03 Yes 10mg Take 1 Univ ers [...] . butalbital2015-03 Yes 2{tbl} Take 2 Un matrin acetaminoph 2-02 tablets by it y of [...] Time Observation Value Comments Source Heart rate 2022-04-12 21:30:00 101 /[facility] Branch Oxygen saturation in 2022-04-12 21:30:00 100 /min [facility] Arterial blood by [facility] Pulse oximetry Branch Systolic blood 2022-04-12 21:15:00 169 mm[Hg] Univer sity of pressure [place] [facility] Diastolic blood 2022-04-12 21:15:00 121 mm[Hg] Unive rsity of pressure [place] [facility] Body temperature 2022-04-12 20:38:00 36.72 Martina Univ ersity of [place] [facility] Respiratory rate 2022-04-12 20:38:00 22 /min Univ ersity of [place] [facility] Body weight 2022-04-12 20:32:00 99.791 kg Universi ty of [place] [facility] BMI 2022-04-12 20:32:00 40.24 kg/m2 Universi ty of [place] [facility] Heart rate 2021-01-19 03:10:00 120 /min Universi ty of [place] [facility] Systolic blood 2021-01-19 03:00:00 134 mm[Hg] Univer sity of pressure [place] [facility] Diastolic blood 2021-01-19 03:00:00 90 mm[Hg] Unive rsity of pressure [place] [facility] Respiratory rate 2021-01-19 03:00:00 20 /min Univ ersity of [place] [facility] Oxygen saturation in 2021-01-19 03:00:00 97 /min University of Arterial blood by [place] Pulse oximetry Branch Body temperature 2021-01-19 01:23:00 37.11 Martina Univ ersity of [place] [facility] Body height 2021-01-19 01:23:00 157.5 cm Universi ty of [place] [facility] Body weight 2021-01-19 01:23:00 117.935 kg Universi ty of [place] [facility] BMI 2021-01-19 01:23:00 47.55 kg/m2 Universi ty of [place] [facility] Systolic blood 2020-08-29 15:23:00 132 mm[Hg] Univer sity of pressure [place] [facility] Diastolic blood 2020-08-29 15:23:00 82 mm[Hg] Unive rsity of pressure [place] [facility] Heart rate 2020-08-29 15:23:00 113 /min Universi ty of [place] [facility] Respiratory rate 2020-08-29 15:23:00 14 /min Univ ersity of [place] [facility] Oxygen saturation in 2020-08-29 15:23:00 98 /min University of Arterial blood by [place] Medi nirmala Pulse oximetry Branch Body weight 2020-08-28 19:17:00 122 kg Universi ty of [place] [facility] BMI 2020-08-28 19:17:00 49.19 kg/m2 Universi ty of [place] [facility] Body temperature 2020-08-28 18:46:00 36.72 Martina Univ ersity of [place] [facility] Systolic blood 2020-08-29 15:23:00 132 mm[Hg] Univer sity of pressure [place] [facility] Diastolic blood 2020-08-29 15:23:00 82 mm[Hg] Unive rsity of pressure [place] [facility] Heart rate 2020-08-29 15:23:00 113 /min Universi ty of [place] [facility] Respiratory rate 2020-08-29 15:23:00 14 /min Univ ersity of [place] [facility] Oxygen saturation in 2020-08-29 15:23:00 98 /min University of Arterial blood by [facility] Pulse oximetry Branch Body weight 2020-08-28 19:17:00 122 kg Universi ty of [place] [facility] BMI 2020-08-28 19:17:00 49.19 kg/m2 Universi ty [facility] [place] [facility] Body temperature 2020-08-28 18:46:00 36.72 Martina Univ ersity of [place] [facility] Systolic blood 2020-04-28 03:05:00 119 mm[Hg] Univer sity of pressure [place] [facility] Diastolic blood 2020-04-28 03:05:00 80 mm[Hg] Unive rsity of pressure [place] [facility] Heart rate 2020-04-28 03:05:00 117 /min Universi ty of [place] [facility] Respiratory rate 2020-04-28 03:05:00 20 /min Univ ersity of [place] [facility] Oxygen saturation in 2020-04-28 03:05:00 99 /min University of Arterial blood by [facility] Pulse oximetry Branch Body temperature 2020-04-28 02:32:00 37.22 Martina Univ ersity of [place] [facility] Body height 2020-04-28 02:32:00 157.5 cm [facility]i ty [facility] [place] [facility] Body weight 2020-04-28 02:32:00 122.471 kg [facility]i ty [facility] [place] [facility] BMI 2020-04-28 02:32:00 49.38 kg/m2 [facility]i ty [facility] [place] [facility] Systolic blood 2020-04-28 03:05:00 119 mm[Hg] Univer sity of pressure [facility] Diastolic blood 2020-04-28 03:05:00 80 mm[Hg] Unive rsity of pressure [facility] Heart rate 2020-04-28 03:05:00 117 /min Universi [facility] Respiratory rate 2020-04-28 03:05:00 20 /min [facility] in 2020-04-28 03:05:00 99 /min University Arterial blood by [facility] Pulse oximetry [place] Body temperature 2020-04-28 02:32:[address] [facility] Body height 2020-04-28 02:32:00 157.5 cm [facility] Body weight 2020-04-28 02:32:00 122.471 kg [facility] BMI 2020-04-28 02:32:00 49.38 kg/m2 [facility] Body height 2020-10-22 04:27:00 157.5 cm [facility] Body weight 2020-10-22 04:27:00 127.007 kg 280 [facility] BMI 2020-10-22 04:27:00 51.21 kg/m2 [facility] Systolic blood 2020-10-22 04:24:53 155 mm[Hg] [facility] pressure Diastolic blood 2020-10-22 04:24:53 78 mm[Hg] [facility] pressure Heart rate 2020-10-22 04:24:53 128 /min [facility] Body temperature 2020-10-22 04:24:53 36 Martina [facility] Respiratory rate 2020-10-22 04:24:53 20 /min [facility] Oxygen saturation in 2020-10-22 04:24:53 98 /min [facility] Arterial blood by Pulse oximetry Respiratory 2020-05-07 07:49:50 No respiratory distress /min 02 Sat by Pulse 2020-05-07 07:49:50 100 /min Oximetry Body Mass Index 2020-05-07 07:49:50 49.4 Height 2020-05-07 07:49:50 157.48\\S\\62 Pulse Rate 2020-05-07 07:49:50 87 /min Respiratory Rate 2020-05-07 07:49:50 18 /min Temperature 2020-05-07 07:49:50 37\\S\\98.6 Weight 2020-05-07 07:49:50 219732.939\\S\\4320 Respiratory 2020-05-05 23:26:04 No respiratory distress /min 02 Sat by Pulse 2020-05-05 23:26:04 100 /min Oximetry Body Mass Index 2020-05-05 23:26:04 49.4 Height 2020-05-05 23:26:04 157.48\\S\\62 Pulse Rate 2020-05-05 23:26:04 87 /min Respiratory Rate 2020-05-05 23:26:04 18 /min Temperature 2020-05-05 23:26:04 37\\S\\98.6 Weight 2020-05-05 23:26:04 167683.939\\S\\4320 Respiratory 2020-05-05 16:38:31 No respiratory distress /min 02 Sat by Pulse 2020-05-05 16:38:31 100 /min Oximetry Body Mass Index 2020-05-05 16:38:31 49.4 Height 2020-05-05 16:38:31 157.48\\S\\62 Pulse Rate 2020-05-05 16:38:31 152 /min Respiratory Rate 2020-05-05 16:38:31 20 /min Temperature 2020-05-05 16:38:31 37.2\\S\\99.0 Weight 2020-05-05 16:38:31 153297.939\\S\\4320 Respiratory 2020-05-05 14:24:00 No respiratory distress /min 02 Sat by Pulse 2020-05-05 14:24:00 100 /min Oximetry Body Mass Index 2020-05-05 14:24:00 49.4 Height 2020-05-05 14:24:00 157.48\\S\\62 Pulse Rate 2020-05-05 14:24:00 152 /min Respiratory Rate 2020-05-05 14:24:00 20 /min Temperature 2020-05-05 14:24:00 37.2\\S\\99.0 Weight 2020-05-05 14:24:00 667336.939\\S\\4320 02 Sat by Pulse 2020-05-05 13:30:25 100 /min Oximetry Body Mass Index 2020-05-05 13:30:25 49.4 Height 2020-05-05 13:30:25 157.48\\S\\62 Pulse Rate 2020-05-05 13:30:25 152 /min Respiratory Rate 2020-05-05 13:30:25 20 /min Temperature 2020-05-05 13:30:25 37.2\\S\\99.0 Weight 2020-05-05 13:30:25 419148.939\\S\\4320 02 Sat by Pulse 2020-05-05 13:17:41 100 /min Oximetry Body Mass Index 2020-05-05 13:17:41 49.4 Height 2020-05-05 13:17:41 157.48\\S\\62 Pulse Rate 2020-05-05 13:17:41 152 /min Respiratory Rate 2020-05-05 13:17:41 20 /min Temperature 2020-05-05 13:17:41 37.2\\S\\99.0 Weight 2020-05-05 13:17:41 875031.939\\S\\4320 02 Sat by Pulse 2020-05-05 13:15:39 100 /min Oximetry Body Mass Index 2020-05-05 13:15:39 49.4 Height 2020-05-05 13:15:39 157.48\\S\\62 Pulse Rate 2020-05-05 13:15:39 152 /min Respiratory Rate 2020-05-05 13:15:39 20 /min Temperature 2020-05-05 13:15:39 37.2\\S\\99.0 Weight 2020-05-05 13:15:39 [id number]\\S\\4320 WEIGHT 2020-05-05 13:11:00 122.050300 kg HEIGHT 2020-05-05 13:11:00 157.48 cm Procedures Procedure Date / Time Performing Clinician Source Performed CT ABDOMEN PELVIS W 2021-01-19 02:26:01 Wan Bryant [facility] POCT TEST 2021-01-19 01:41:00 Bryant, Wan [facility] COMP. METABOLIC PANEL 2021-01-19 01:40:00 Singer [facility] ([id number]) [facility] CBC WITH DIFF 2021-01-19 01:40:00 Singer [facility] URINALYSIS 2021-01-19 01:40:00 Singer [facility] CONSENT/REFUSAL FOR 2021-01-19 01:18:32 Doctor Unassigned, No Un [facility] DIAGNOSIS AND TREATMENT Name Medical Branch HC COMPLETE BLD COUNT 2020-10-22 05:09:00 David Phelan [facility] W/AUTO DIFF URINALYSIS 2020-10-22 05:09:00 David Phelan spital COMPREHENSIVE METABOLIC 2020-10-22 05:09:00 David Phelan [facility] PANEL LACTIC ACID, I-STAT 2020-10-22 05:09[facility] URINE 2020-10-22 05:09:00 David Phelan [facility] SCREEN ESTIMATED GFR 2020-10-22 05:09:00 David Phelan MR LUMBAR SPINE W WO 2020-08-29 04:41:29 Leah Doty [facility] CONTRAST [facility] POCT TEST 2020-08-29 04:39:00 Debbi Page [facility] CBC WITH DIFF 2020-08-29 03:06:00 Camilo [facility] LACTIC ACID WHOLE BLOOD 2020-08-29 03:06:00 Camilo [facility] COMP. METABOLIC PANEL 2020-08-29 02:50:00 Camilo [facility] ([id number]) [facility] URINALYSIS 2020-08-29 02:50:00 Camilo [facility] COVID-19 (ID NOW RAPID 2020-08-28 23:34:00 Leah Doty [facility] TESTING) Yoselyn [facility] CONSENT/REFUSAL FOR 2020-08-28 18:48:13 Doctor Unassigned, No Un [facility] DIAGNOSIS AND TREATMENT Name [facility] ADC / LCC - DRUG SCREEN 2020-04-28 03:58:00 Mary Bran [facility] TRIAGE [facility] BASIC METABOLIC PANEL 2020-04-28 03:03:00 Mary Bran [facility] (NA, K, CL, CO2, Medical Branch GLUCOSE, BUN, CREATININE, CA) CBC WITH DIFF 2020-04-28 03:03:00 Mary Bran [facility] URINALYSIS 2020-04-28 02:41:00 Mary Bran [facility] POCT TEST 2020-04-28 02:40:00 Mary Bran [facility] NOTICE OF PRIVACY 2020-04-28 02:22:34 Doctor Unassigned, No [facility] Name [facility] Branch CONSENT/REFUSAL FOR 2020-04-28 02:22:21 Doctor [facility] Name [facility] Plan of Care Planned Activity Planned Date Details Comments Source Future Scheduled 2022-11-16 COVID-[address] [facility] Test 19:38:42 (#1) [code = COVID-19 VACCINE (#1)] Future Scheduled 2022-11-16 [facility] 19:38:42 screening (procedure) [code = 719993456] Future Scheduled 2022-11-16 [facility] Test 19:38:42 malignant neoplasm of cervix (procedure) [code = 730313522] Future Scheduled 2022-11-16 [facility] 19:38:42 (#1) [code = INFLUENZA VACCINE (#1)] Future Scheduled 2022-03-07 COVID-[address] [facility] Test 00:41:47 (#1) [code = COVID-19 VACCINE (#1)] Future Scheduled 2022-03-07 [facility] Test 00:41:47 screening (procedure) [code = 242637407] Future Scheduled 2022-03-07 [facility] Test 00:41:47 malignant neoplasm of cervix (procedure) [code = 100276672] Future Scheduled 2022-03-07 [facility] 00:41:47 [code = INFLUENZA VACCINE] Future Scheduled COVID-[address] [facility] Test (1) [code = COVID-19 VACCINE (1)] Future Scheduled [facility] screening (procedure) [code = 716368216] Future Scheduled [facility] Test malignant neoplasm of cervix (procedure) [code = 704870074] Future Scheduled [facility] [code = INFLUENZA VACCINE] Encounters Start End Encounter Admission Attending Care Care Encounter Source Date/Time Date/Time Type Type Clinicians Facility Department ID 2020-05-05 Inpatient [facility] [id number] [facility] 13:01:00 76 2020-05-05 Inpatient [facility] [id number] [facility] 13:01:00 76 2020-04-25 Inpatient HCAKW HCAKW [id number] [facility] 00:45:38 47 [facility] 2020-01-18 Inpatient HCAPM ZEE [id number] [facility] 19:15:00 86 [facility] 2020-01-15 Inpatient HCAKW ZEE [id number] [facility] 14:21:00 20 [facility] 2020-01-14 Inpatient HCAKW ZEE [id number] [facility] 22:47:00 65 [facility] 2020-01-13 Inpatient HCAKW ZEE [id number] [facility] 17:51:00 91 [facility] 2022-04-12 2022-04-12 Emergency X MARILUZ, [facility] ERT [id number] Univers 14:29:00 16:18:00 PEG paz of [facility] 2022-04-12 2022-04-12 Emergency Kaale, TRAUMA [id number] Univers 14:29:00 16:18:00 [facility] 350.1.13.10 ity [facility]2.7.2.686 [facility] gilmer [id number] [place] [address] Branch 2021-09-17 2021-09-17 Emergency EM Vu, HCATB HCATB [id number] [facility] 17:23:00 19:19:00 Johnathan [id number] [facility] 2021-09-17 2021-09-17 Emergency EM Vu, HCATB ZEE [id number] [facility] 17:23:00 19:19:00 Alexannamarie 62 [facility] [place] 2021-03-13 2021-03-13 Emergency nullFlavo [facility] [id number] Memoria 20:35:29 22:30:00 r opal Johnson 2021-03-13 2021-03-13 Emergency nullFlavo [facility] [id number] Memoria 20:35:29 22:30:00 r opal Johnson 2021-01-18 2021-01-18 Emergency X BRYANT, [facility] ERT [id number] Univers 20:26:00 22:38:00 WAN paz of [facility] 2021-01-18 2021-01-18 Emergency [facility] [id number] Univers 20:26:00 22:38:00 Wan MENDOZA 350.1.13.10 i ty [facility] 4.2.7.2.686 [facility] [id number] [address] 2021-01-17 2021-01-17 Emergency ER Dickson, STLSJG STLSJG [id number] 17:05:00 20:00:00 Dennis [facility][id number] [facility] 2021-01-08 2021-01-08 Emergency ER Eliza, STLSJX STLSJX [id number] STLSJX 12:37:00 12:37:00 Oli -[id number] 2020-11-25 2020-11-25 Emergency SEBASTIAN, [facility] 064 [id number] 40 [place] 00:00:00 00:00:00 MANOLO [address] 2020-10-22 2020-10-22 Travel 1.2.840.1 1.2.675.881 [id number] [id number] Methodi 00:00:00 00:00:[address] 3.430.2.7 0.2.7.3.698 spita .3.519100 084.8 l .8 2020-10-21 2020-10-22 Emergency NUSZEN, [facility] [id number] [place] [address] 00:00:00 00:00:[address] [facility] 2020-08-28 2020-08-29 Emergency Aufderheyou, Leah Yoselyn TRAUMA 1.2.840.114 [id number] Univers 13:50:00 10:43:00 [facility] 350.1.13.10 ity of Jorge A Darron W 4.2.7.2.686 [place] [id number] [facility] 014 Branch 2020-08-28 2020-08-29 Emergency Aufderheyou, Leah Yoselyn TRAUMA 1.2.840.114 [id number] 13:50:00 10:43:00 [facility] 350.1.13.10 Darron Jules W 4.2.7.2.68 [id number] 014 2020-08-28 2020-08-28 Emergency X [facility] ERT [id number] Univers 13:42:00 13:42:00 ity of [facility] 2020-04-27 2020-04-27 Emergency Bran, [facility] 1.2.840.114 [id number] Univers 20:41:00 23:12:00 Maryrakan Mendoza 350.1.13.10 i ty of [place] 4.2.7.2.686 [facility] [id number] [facility] 084 [place] 2020-04-27 2020-04-27 Emergency Bran, [facility] 1.2.840.114 [id number] 20:41:00 23:12:00 Mary Mendoza 350.1.13.10 [place] 4.2.7.2.686 [place] [id number] 08 2020-04-27 2020-04-27 Emergency X [facility] ERT [id number] Univers 20:23:00 20:23:00 ity of [facility] 2020-04-27 2020-04-27 Orders Doctor GALVAN 1.2.840.114 [id number] Univers 00:00:00 00:00:00 Only Unassigned, KEVYN 350.1.13.10 ity of [place] [facility] 4.2.7.2.686 [place] [id number] [place] [address] Branch 2020-04-27 2020-04-27 Orders Doctor COLE 1.2.840.114 [id number] 00:00:00 00:00:00 Only Unassigned, KEVYN 350.1.13.10 [place] [facility] 4.2.7.2.686 [id number] 009 2020-01-18 2020-01-18 Outpatient LUCÍA Kruse LABO [id number] [facility] 22:41:00 22:41:00 Anita 89 [facility] 2020-01-15 2020-01-17 Inpatient EM Bradly Sebastian [facility] MED [id number] [facility] 17:01:00 12:13:00 20 [facility] Results Test Description Test Time Test Comments Results Result Comments Source - RETRO LTD 2021-09-17 18:45:00 [facility] NATIV[facility] KLINE : 1995 Sex: F Lv tient Name: NATIVIDAD KLINE Unit No: [id number] EXAMS: CPT: [id number] RETRO LTD 34798 COMPARISON: None CLINICAL HISTORY: Left flank pain [...] 09/17/2021 (1847) BATCH NO: N/A Name: NATIVIDAD KLINE Phys: [id number] - Johnathan [place] [facility] : 1995 Age: 26 Sex: F [place],Janes Loc: T.ERS Exam Date: 09/17/2021 Status: REG ER PH: [...] CA) 10.2 mg/dL 8.6-10.3 N LIVER FUNCTION [id number] 18:39:00 Test Item Value Reference Range Interpretation [...] code = 74 U/L 46-116 N ALKP) [id number] 18:39:00 Test Item Value Reference Range Interpretation Comments LIPASE (test code = LIP) 37 U/L 12-53 N UA RFLX MICR CULT IF [id number] 18:25:00 Test Item Value Reference Range Interpretation [...] culture: Flank PainSpecimen Description: CLEAN CATCHCBC W/AUTO [id number] 18:24:00 Test Item Value Reference Range Interpretation [...] 0.04 K/mm3 0.0-0.1 N COMP. METABOLIC PANEL (24706)2021-01-19 01:59:14 Test Item Value Reference Range Interpretation Comments NA (test code = 140 mmol/L 135-145 1866837263) K (test code = 4.4 mmol/L 3.5-5.0 0308680446) CL (test code = 106 mmol/L 98-108 5960009299) CO2 TOTAL (test code 23 mmol/L 23-31 = 4060768061) AGAP (test code = 2-16 2801432572) BUN (test code = 9 mg/dL 7-23 0481021685) GLUCOSE (test code = 94 mg/dL 70-110 2302984290) CREATININE (test code 0.62 mg/dL 0.50-1.04 = 5497152671) TOTAL BILI (test code 0.3 mg/dL 0.1-1.1 = 3706154370) CALCIUM (test code = 9.8 mg/dL 8.6-10.6 1284203755) T PROTEIN (test code 7.8 g/dL 6.3-8.2 = 1148459178) ALBUMIN (test code = 4.6 g/dL 3.5-5.0 3100951155) ALK PHOS (test code = 97 U/L 34-122 7979999270) ALTv (test code = 19 U/L 5-35 1742-6) AST(SGOT) (test code 26 U/L 13-40 = 0980446471) eGFR (test code = mL/min/1.73m2 3876101777) AURORA (test code = AURORA) Association of [...] imaging tests). [facility] WITH [id number] 01:47:12 Test Item Value Reference Range Interpretation [...] (test code = 51.5 fL 39.0-49.9 H 04072-7) RDW-CV (test code = 17.4 % 12.0-15.5 H 788-0) PLT (test code = See_Comment H [Automated 777-3) message] The sy stem which generated this result transmitted reference range : 166 - 358 10*3/ ?L. The reference r edson was not used to interpret this result as normal/abnormal . MPV (test code = 9.3 fL 9.5-12.9 L 28179-5) NRBC/100 WBC (test See_Comment [Automat ed code = 4733900981) message] The system which generated this result transmitted reference range : 0.0 - 10.0 /100 WBCs. The refer ence range was not u sed to interpret th is result as normal/abnormal . NRBC x10^3 (test code <0.01 See_Comment [Auto mated = 1500917898) message] The s ystem which generated this result transmitted reference range : 10*3/?L. The reference range was not used to interpret this result as normal/abnormal . GRAN MAT (NEUT) % 59.5 % (test code = 770-8) IMM GRAN % (test code 0.30 % = 2277971541) LYMPH % (test code = 30.7 % 736-9) MONO % (test code = 5.7 % 5905-5) EOS % (test code = 3.3 % 713-8) BASO % (test code = 0.5 % 706-2) GRAN MAT x10^3(ANC) 5.88 10*3/uL 1.88-7.09 (test code = 7282221037) IMM GRAN x10^3 (test 0.03 10*3/uL 0.00-0.06 code = 3037330636) LYMPH x10^3 (test code 3.03 10*3/uL 1.32-3.29 = 731-0) MONO x10^3 (test code 0.56 10*3/uL 0.33-0.92 = 742-7) EOS x10^3 (test code = 0.33 10*3/uL 0.03-0.39 711-2) BASO x10^3 (test code 0.05 10*3/uL 0.01-0.07 = 704-7) Lab Interpretation Abnormal (test code = 85843-4) [id number] 01:41:00 Test Item Value Reference Range Interpretation Comments POCT PREG (test code = 1605) neg On board controls acceptable with yes C Line (test code = 3574) POCT PREG LOT # (test code = 3575) [id number] POCT PREG TEST DATE (test 03/15/2022 code = 3576) Lab Interpretation (test code = Normal 21043-1) [facility]2021-[facility] 18:14:00 Test Item Value Reference [...] 7.8-10.44 N code = CA) Chemistry - [id number] 18:04:00 Test Item Value Reference Range Interpretation Comments Chemistry - Specials Negative NEGATIVE Method of sensitivity- (test code = BHCGST) Indeter minant: results should be repea jose after 48-72 hrs Positive: resul ts may be detected as early as 1 day after the first missed me nses. [id number] 17:55:00 Test Item Value Reference Range Interpretation [...] code = BASO#) 0.1 thou/uL 0.0-0.2 N [id number] 17:55:00 Test Item Value Reference Range Interpretation [...] Source: Urine VoidedMR LUMBAR SPINE W WO [id number] 13:40:15 Prior right L5-S1 laminectomy and apparent [...] patent. No significant neuralforaminal stenosis is identified. Ndmb, Radiant Results Inft User - 08/29/2020 8:41 AM CDT ORDERING PHYSICIAN:LEAH MCGEE AUROSEANNEHEIDEHISTORY:Low back pain, infection suspected TECHNIQUE: Lumbar spine [...] the cauda equina demonstrateenhancement, likely postoperative.RL: 4700 [facility] [id number] 04:39:00 Test Item Value Reference Range Interpretation Comments POCT PREG (test code = 1605) negative On board controls acceptable with present C Line (test code = 3574) POCT PREG LOT # (test code = 3575) [id number] POCT PREG TEST DATE (test 02-12-22 code = 3576) Lab Interpretation (test code = Normal 94423-1) [facility] 03:30:07 Test Item Value Reference Range Interpretation Comments APPEARANCE (test code = Clear Clear 6806088163) COLOR (test code = Yellow Yellow 8167155270) PH (test code = 4.8-8.0 6306363396) SP GRAVITY (test code = 1.003-1.030 0609885859) GLU U QUAL (test code = Normal Normal 0820388881) BLOOD (test code = Negative Negative Interfere nce from 1811786210) ascorbic acid m ay cause false neg ative results. KETONES (test code = Negative Negative 6810908977) PROTEIN (test code = Negative Negative 2887-8) UROBILIN (test code = Normal Normal 1485412843) BILIRUBIN (test code = Negative Negative 0307593650) NITRITE (test code = Negative Negative 6349361041) LEUK GAETANO (test code = Negative Negative 8018848503) RBC/HPF (test code = See_Comment [Autom ated message] 3157850212) The system [employer] generated this result transmitted ref erence range: 0 - 3 HP F. The reference range was not used to int erpret this result as normal/abnormal . WBC/HPF (test code = See_Comment [Autom ated message] 5236964420) The system [employer] generated this result transmitted ref erence range: 0 - 5 HP F. The reference range was not used to int erpret this result as normal/abnormal . BACTERIA (test code = Negative Negative 6373958583) MUCOUS (test code = Slight Negative LPF A 1109651583) SQ EPITH (test code = See_Comment H [Auto mated message] 7898365718) The system [employer] generated this result transmitted ref erence range: <=2 HPF. The reference range was not used to int erpret this result as normal/abnormal . ASCORBIC ACID (test code 20 mg/dL = 7817628364) Lab Interpretation (test Abnormal code = 80443-3) [facility]. METABOLIC PANEL (23928)2020-08-29 03:19:20 Test Item Value Reference Range Interpretation Comments NA (test code = 139 mmol/L 135-145 6188977243) K (test code = 3.8 mmol/L 3.5-5.0 7389658781) CL (test code = 110 mmol/L 98-108 H 9896153777) CO2 TOTAL (test code = 18 mmol/L 23-31 L 1286804894) AGAP (test code = 2-16 7534676300) BUN (test code = 10 mg/dL 7-23 6375111467) GLUCOSE (test code = 95 mg/dL 70-110 3666758622) CREATININE (test code = 0.60 mg/dL 0.50-1.04 8617186054) TOTAL BILI (test code = 0.3 mg/dL 0.1-1.0 0666038774) CALCIUM (test code = 9.0 mg/dL 8.6-10.6 3038521922) T PROTEIN (test code = 7.0 g/dL 6.3-8.2 9164044173) ALBUMIN (test code = 4.2 g/dL 3.5-5.0 2422398729) ALK PHOS (test code = 67 U/L 34-122 6697345485) ALTv (test code = 24 U/L 5-35 1742-6) AST(SGOT) (test code = 30 U/L 13-40 8759458485) eGFR (test code = mL/min/1.73m2 8708256225) AURORA (test code = AURORA) Association of [...] tests). Lab Interpretation Abnormal (test code = 14641-0) [facility] Center[facility] Whole [id number] 03:19:05 Test Item Value Reference Range Interpretation Comments LACTIC ACID (test code = 1.35 mmol/L 0.50-2.20 0912786649) Lab Interpretation (test code = Normal 82022-2) [facility] WITH [id number] 03:17:59 Test Item Value Reference Range Interpretation Comments WBC (test code = See_Comment [Automated 9790-2) message] The sy stem which generated this result transmitted reference range : 4.30 - 11.10 10*3/?L. The reference range was not used to interpret this result as normal/abnormal . RBC (test code = See_Comment L [Automated 519-8) message] The sy stem which generated this [...] (test code = 53.7 fL 39.0-49.9 H 24874-3) RDW-CV (test code = 17.3 % 12.0-15.5 H 788-0) PLT (test code = See_Comment H [Automated 777-3) message] The sy stem which generated this result transmitted reference range : 166 - 358 10*3/ ?L. The reference r edson was not used to interpret this result as normal/abnormal . MPV (test code = 9.3 fL 9.5-12.9 L 35769-5) NRBC/100 WBC (test See_Comment [Automat ed code = 9674598321) message] The system which generated this result transmitted reference range : 0.0 - 10.0 /100 WBCs. The refer ence range was not u sed to interpret th is result as normal/abnormal . NRBC x10^3 (test code <0.01 See_Comment [Auto mated = 8783170885) message] The s ystem which generated this result transmitted reference range : 10*3/?L. The reference range was not used to interpret this result as normal/abnormal . GRAN MAT (NEUT) % 58.1 % (test code = 770-8) IMM GRAN % (test code 0.20 % = 0808804839) LYMPH % (test code = 29.0 % 736-9) MONO % (test code = 8.3 % 5905-5) EOS % (test code = 4.0 % 713-8) BASO % (test code = 0.4 % 706-2) GRAN MAT x10^3(ANC) 5.40 10*3/uL 1.88-7.09 (test code = 6204587855) IMM GRAN x10^3 (test <0.03 0.00-0.06 code = 4297924668) LYMPH x10^3 (test code 2.69 10*3/uL 1.32-3.29 = 731-0) MONO x10^3 (test code 0.77 10*3/uL 0.33-0.92 = 742-7) EOS x10^3 (test code = 0.37 10*3/uL 0.03-0.39 711-2) BASO x10^3 (test code 0.04 10*3/uL 0.01-0.07 = 704-7) Lab Interpretation Abnormal (test code = 98299-5) [facility] (ID NOW RAPID TESTING)2020-08-29 00:07:14 Test Item Value Reference Range Interpretation Comments SARS-CoV-2 Rapid ID NOW Not Detected Not Detected (test code = 71112-6) AURORA (test code = AURORA) ID NOW COVID-19 Assay is an isothermal nucleic acid amplification test intended for the qualitative detection of nucleic acid from SARS-CoV-2 viral RNA in nasopharyngeal (ADMITTING MANAGER) specimens. It is used under Emergency [...] indicated. Lab Interpretation Normal (test code = 22489-8) [facility] CenterPotassium,[id number] 15:32:00 Test Item Value Reference Range Interpretation Comments Potassium,K (test code = K) 4.3 mmol/L 3.0-5.1 N Complete Blood Count Auto [id number] 13:53:00 Test Item Value Reference Range Interpretation [...] code = NRBCP) 0 % Comprehensive Metabolic [id number] 13:53:00 Test Item Value Reference Range Interpretation [...] (test code = Negative Negative HCGQ) Lactic [id number] 13:53:00 Test Item Value Reference Range Interpretation Comments Lactic Acid (test code = LACTIC) 1.1 mmol/L 0.5-2.0 N ADC / [facility] - DRUG SCREEN [id number] 04:20:00 Test Item Value Reference Range Interpretation Comments BENZO U (test code = Negative Negative 4874143646) DIVYA U (test code = Negative Negative 6160232135) AMPHET (test code = Negative Negative 4614697854) THC (test code = Negative Negative 5164905830) METHADONE (test code = Negative Negative 1343879678) Meth U (test code = Negative Negative 0858891437) OPIATES (test code = Presumptive Positive Negative A 0244120747) Cocaine Metabolite (test Negative Negative code = 8043043814) PROPOXY (test code = Negative Negative 2811103761) Tric U (test code = Negative Negative 3362552297) PCP (test code = Negative Negative 7431045152) OXYCOD (test code = Negative Negative 5164091488) AURORA (test code = AURORA) Urine Drug [...] testing). Lab Interpretation (test Abnormal code = 31706-9) [facility] Metabolic Panel (NA, K, CL, CO2, GLUCOSE, BUN, CREATININE, CA)2020-04-28 03:22:00 Test Item Value Reference Range Interpretation Comments NA (test code = 139 mmol/L 135-145 3221122391) K (test code = 4.4 mmol/L 3.5-5 6521547978) CL (test code = 105 mmol/L 98-108 1446748242) CO2 TOTAL (test code = 25 mmol/L 23-31 8071138302) AGAP (test code = 2-16 8522687947) BUN (test code = 11 mg/dL 7-23 8103819384) GLUCOSE (test code = 92 mg/dL 70-110 6433511056) CREATININE (test code 0.65 mg/dL 0.5-1.04 = 9977521841) CALCIUM (test code = 9.5 mg/dL 8.6-10.6 8256866186) eGFR Calculation mL/min/1.73m2 (Non-) (test code = 4795900821) eGFR Calculation mL/min/1.73m2 () (test code = 4846905624) AURORA (test code = AURORA) Association of [...] or urine or abnormalities in imaging tests). [facility]2021-02-13 03:17:00 Test Item Value Reference Range Interpretation Comments APPEARANCE (test code = Cloudy Clear A 4131423892) COLOR (test code = Yellow Yellow 0894750814) PH (test code = 4.8-8.0 4101472673) SP GRAVITY (test code = 1.003-1.030 1046952867) GLU U QUAL (test code = Normal Normal 7735716621) BLOOD (test code = Negative Negative 2444437180) KETONES (test code = Negative Negative 0530403100) PROTEIN (test code = Negative Negative 2887-8) UROBILIN (test code = Normal Normal 7666140741) BILIRUBIN (test code = Negative Negative 8772860266) NITRITE (test code = Negative Negative 8823840165) LEUK GAETANO (test code = Negative Negative 7066820788) RBC/HPF (test code = <1 See_Comment [Autom ated message] 5923569100) The system [employer] generated this result transmitted ref erence range: 0 - 3 HP F. The reference range was not used to int erpret this result as normal/abnormal . WBC/HPF (test code = See_Comment [Autom ated message] 5581576879) The system [employer] generated this result transmitted ref erence range: 0 - 5 HP F. The reference range was not used to int erpret this result as normal/abnormal . BACTERIA (test code = Many Negative A 4497459434) MUCOUS (test code = Slight Negative LPF A 2621896273) AMORPHOUS (test code = Moderate Rare HPF A 5694893022) SQ EPITH (test code = HPF 7300718338) WBC CLUMPS (test code = See_Comment H [Au tomated message] 2287887866) The system [employer] generated this result transmitted ref erence range: <=1 HPF. The reference range was not used to int erpret this result as normal/abnormal . YEAST BUD (test code = See_Comment H [Aut omated message] 2208396589) The system [employer] h generated this result transmitted ref erence range: <=1 HPF. The reference range was not used to int erpret this result as normal/abnormal . Lab Interpretation (test Abnormal code = 44005-7) [facility] with [id number] 03:11:00 Test Item Value Reference Range Interpretation Comments WBC (test code = See_Comment [Automated 4690-2) message] The sy stem which generated this [...] RDW-SD (test code = 47.8 fL 39-49.9 56524-8) RDW-CV (test code = 15.2 % 12-15.5 788-0) PLT (test code = See_Comment H [Automated 777-3) message] The sy stem which generated this result transmitted reference range : 166 - 358 10*3/ ?L. The reference r edson was not used to interpret this result as normal/abnormal . MPV (test code = 9.7 fL 9.5-12.9 13560-6) NRBC/100 WBC (test See_Comment [Automat ed code = 9873784581) message] The system which generated this result transmitted reference range : 0.0 - 10.0 /100 WBCs. The refer ence range was not u sed to interpret th is result as normal/abnormal . NRBC x10^3 (test code <0.01 See_Comment [Auto mated = 4718183965) message] The s ystem which generated this result transmitted reference range : 10*3/?L. The reference range was not used to interpret this result as normal/abnormal . GRAN MAT (NEUT) % 70.3 % (test code = 770-8) IMM GRAN % (test code 0.50 % = 1054723723) LYMPH % (test code = 21.0 % 736-9) MONO % (test code = 5.2 % 5905-5) EOS % (test code = 2.4 % 713-8) BASO % (test code = 0.6 % 706-2) GRAN MAT x10^3(ANC) 7.03 10*3/uL 1.88-7.09 (test code = 1014511490) IMM GRAN x10^3 (test 0.05 10*3/uL 0-0.06 code = 8237495092) LYMPH x10^3 (test code 2.10 10*3/uL 1.32-3.29 = 731-0) MONO x10^3 (test code 0.52 10*3/uL 0.33-0.92 = 742-7) EOS x10^3 (test code = 0.24 10*3/uL 0.03-0.39 711-2) BASO x10^3 (test code 0.06 10*3/uL 0.01-0.07 = 704-7) Lab Interpretation Abnormal (test code = 54833-6) [id number] Test Item Value Reference Range Interpretation Comments POCT PREG (test code = 1605) Negative On board controls acceptable with Present C Line (test code = 3574) POCT PREG LOT # (test code = HCG 6476908 3575) POCT PREG TEST DATE (test 12/13/2021 code = 3576) Lab Interpretation (test code = Normal 54242-7) [facility] [id number] 02:52:00 Test Item Value Reference Range Interpretation Comments LACTIC ACID (test code = LACT) 1.0 mmol/L 0.7-2.0 N COMPREHENSIVE METABOLIC [id number] 02:28:00 Test Item Value Reference Range Interpretation [...] = ALKP) UA RFLX MICR CULT IF [id number] 01:22:00 Test Item Value Reference Range Interpretation [...] URINE: CLEAN CATCHUA RFLX MICR CULT IF [id number] 01:19:00 Test Item Value Reference Range Interpretation [...] code = LACT) toFirst Name: I7767 Last Name[facility] READ BACK AND [facility] Love C.LAB.MG, on , @ 0052. [id number] 00:50:00 Test Item Value Reference Range Interpretation Comments LIPASE (test code = LIP) 54 U/L 23-300 N CBC W/AUTO [id number] 00:49:00 Test Item Value Reference Range Interpretation [...] 0.04 x10 3/uL 0.0-0.1 N - RETRO [id number] 00:16:00 [facility] : 1995 Sex: F [place] St: REG -- Name: NATIVIDAD KLINE [facility] : 1995 Age/S: 24/F [address] Unit #: [id number] Loc: [place] [address] Phys: Luis Goddard NP Acct: [id number] Dis Date: Status: REG ER PHONE #: [phone] Exam Date: 04/24/2020 0005 FAX #: [phone] Reason: left flank pain EXAMS: CPT CODE: [id number] US RETRO LTD 24438 EXAM: - US RETRO LTD LOCATION: 7 [...] hydronephrosis. A punctate nonobstructing stone is seen in the left kidney. No focal lesions. IMPRESSION: A punctate nonobstructing stone is seen in the left kidney. at 0016 Reported and signed by:Leonel Delacruz MD CC: Technologist: Francine Jimenez RDMS RVT Trnscrd Date/Time/By: 04/25/2020 (0016) : By: [email or web address] PAGE 1 Signed Report [place]: St: REG Name: NATIVIDAD KLINE [facility] : 1995 Age/S: 24/F [address] Unit #: [id number] Loc: [place] [address] Phys: Luis Goddard ADMITTING MANAGER Acct: [id number] Dis Date: Status: REG ER PHONE #: [phone] Exam Date: 04/24/2020 0005 FAX #: [phone] Reason: left flank pain EXAMS: CPT CODE: [id number] RETRO LTD 15750 (Continued) Orig Print D/T: S: 04/25/2020 (0019) PAGE 2 Signed ReportCOVID 19 INHOUSE [id number] 21:16:00 Test Item Value Reference Range Interpretation Comments COVID 19 INHOUSE AG NEGATIVE Negative Per manu facturer, (test code = negative result s should [id number]) be treated aspr esumptive and, if inconsi [...] nsistent with COVID-19. - XR CHEST 1 [id number] 20:44:00 [facility] 1995 Sex: F Name: NATIVIDAD KLINE [place] : 1995 Age/S: [place] Unit #: [id number] Loc: [place] [address] Phys: Anita Kruse MD Acct: [id number] Dis Date: Status: REG ER PHONE #: [phone] Exam Date: 01/18/20202023 FAX #: Reason: Code Sepsis EXAMS:CPT: [id number] XR CHEST 1 V 44068 Fluoro Time: DAP (Gy m2): Air Kerma [...] evidence for acute infiltrates or effusions. at 2044 Reported and signed by: Twan Evans M.D. CC: Anita Kruse MD PAGE 1 Signed Report Name: NATIVIDAD KLINE [place] : 1995 Age/S: [place] Unit #: [id number] Loc: [place] [address] Phys: Anita Kruse MD Acct: [id number] Dis Date: Status: REG ER PHONE #: [phone] Exam Date: 01/18/20202023 FAX #: Reason: Code Sepsis EXAMS: CPT: [id number] XR CHEST 1 V 44682 Fluoro Time: DAP (Gy m2): Air Kerma (mGy): <Continued> Technologist: Brandi Clark RT(R)(CT) Trnscb Date/Time: 01/18/2020(2043) [email or web address] Orig Print D/T: S: 01/18/2020 (2047) PAGE 2 Signed ReportUA RFLX MICR CULT IF [id number] 20:17:00 Test Item Value Reference Range Interpretation [...] culture: Suprapubic PainUA RFLX MICR CULT IF [id number] 20:13:00 Test Item Value Reference Range Interpretation [...] UACULT) Indication for culture: Suprapubic PainBASIC METABOLIC [id number] 20:13:00 Test Item Value Reference Range Interpretation [...] 8.5-10.1 N Completed by Nursing: NOHEPATIC FUNCTION [id number] 20:13:00 Test Item Value Reference Range Interpretation [...] N code = ALKP) Completed by Nursing: [id number] 20:13:00 Test Item Value Reference Range Interpretation [...] jesse yby method. Completed by Nursing: NOLACTIC [id number] 20:13:00 Test Item Value Reference Range Interpretation Comments LACTIC ACID (test code = LACT) 1.8 mmol/L 0.4-2.0 N CBC W/AUTO [id number] 19:57:00 Test Item Value Reference Range Interpretation [...] NO DIFF/SCN CRITERIA = MDIFF) BASIC METABOLIC [id number] 07:22:00 Test Item Value Reference Range Interpretation [...] 8.7 mg/dL 8.4-10.2 N CA) CBC W/AUTO [id number] 07:03:00 Test Item Value Reference Range Interpretation [...] 0.05 x10 3/uL 0.0-0.1 N BASIC METABOLIC [id number] 05:56:00 Test Item Value Reference Range Interpretation [...] 8.4 mg/dL 8.4-10.2 N CA) CBC W/AUTO [id number] 05:42:00 Test Item Value Reference Range Interpretation [...] AVG 3 .43 FEMALE: 1/2 AVG 3.27 A VG 4.97 AVG 4.44 2 X AVG 9.55 2X AVG 7.0 5 3X AVG 23.39 3X AV G 11.04~~~~~~~~~~ ~~~~~ ~~~~~~~~~~~~~~~ ~~~~~ ~~~~~~~~~~~~~~~ ~~~~~ ~~~~~National Cholesterol Education (NCEP ) Guidelines:~~~~ ~~~~~ ~~~~~~~~~~~~~~~ ~~~~~ ~~~~~~~~~~~~~~~ ~~~~~ ~~~~~~~~~~~ H DL Cholesterol<4 0mg/d L: HDL Choleste rol (Major risk fac tor for CHD)>60mg/d L: HDL Cholesterol (Negative risk factor for CHD)40-59mg/dL: Borderline Risk LDL Cholesterol<1 00mg/ dL: Desirable L DL-C beznhjlyhbrzg84 0-159 mg/dL: Borderli ne High Risk LDL-C fuyftswrcrkpp14 0-189 mg/dL: High ris k LDL-C concentra tion HDL-LDL Cholest shubahm is affected by a number of facto [...] LDL Cholesterol<1 00mg/dL : Desirable LDL -C tfmfkyzhqyian05 0-159mg /dL: Borderline High Risk LDL-C qjbwkyjfapnke02 0-189mg /dL: High risk LDL-C concentration H DL-LDL Cholesterol is affected by a n umber of factors such as smoking, age an d sex.~~~~~~~~~~~ ~~~~~~~ ~~~~~~~~~~~~~~~ ~~~~~~~ ~~~~~~~~~~~~~~~ ~~~~~ LACTIC [id number] 17:52:00 Test Item Value Reference Range Interpretation Comments LACTIC ACID (test code = LACT) 1.6 mmol/L 0.7-2.0 N Coronavirus 2019 nCoV [id number] 17:03:00 Test Item Value Reference Range Interpretation Comments Coronavirus 2019 Negative NEGATIVE This test h as been nCoV Bedside (test authorize d by FDA under code = [id number]) an EUA for use byauthorized laboratories; T [...] and/o r diagnosis of CO VID-19 under Sxdhtsg34 4(b)(1) of the Act, 21 U.S .C. 360bbb-3(b)(1), unless theauthorizatio n is terminated or r evoked sooner. LACTIC [id number] 16:44:00 Test Item Value Reference Range Interpretation Comments LACTIC ACID (test 2.1 mmol/L 0.7-2.0 HH Critical V alue reported code = LACT) toFirst Name:UTE D6486 Last Name:CHEL TS READ BACK AND [employer] HealthMAGGIE Love C.LAB.LAS1, on 01/15/20, @ 164 4. UA RFLX MICR CULT IF [id number] 16:42:00 Test Item Value Reference Range Interpretation [...] V alue reported code = LACT) toFirst Name:MS I8356 Last Name:[facility] READ BACK AND [facility]UR[facility]A ShuklaLAB.LAS1, on 01/15/20, @ 155 4. BASIC METABOLIC [id number] 15:50:00 Test Item Value Reference Range Interpretation [...] 9.6 mg/dL 8.4-10.2 N CA) LIVER FUNCTION [id number] 15:50:00 Test Item Value Reference Range Interpretation [...] U/L 38-126 N (test code = ALKP) [id number] 15:50:00 Test Item Value Reference Range Interpretation Comments LIPASE (test code = LIP) 47 U/L 23-300 N PROTHROMBIN [id number] 15:50:00 Test Item Value Reference Range Interpretation [...] 0 Acute myocardial infa rction (to present sy stemic embolism)* 2.0 - 3.0 Valvular heart disease 2.0 - 3.0 Atria l fibrillation 2. 0 - 3.03. Mechanica l prosthetic valv es (high risk) 2.5 - 3.5 * If oral anticoagulant t herapy is elected to preventrecurren t myocardial infa rction, an INR of 2.5-3 .5 isrecommended, consistent with Food and Drug Administrationr ecommen dations. THROMBOPLASTIN TIME [id number] 15:50:00 Test Item Value Reference Range Interpretation Comments THROMBOPLASTIN TIME 31.8 SECONDS 23.4-37.0 N Therape utic Range PARTIAL (test code = for Hep katherine PTT) EFFECTIVE Heparin IU/mL aPTT Seconds0.3 64.3 0.7 88.8 BASIC METABOLIC [id number] 15:49:00 Test Item Value Reference Range Interpretation [...] 9.6 mg/dL 8.4-10.2 N CA) LIVER FUNCTION [id number] 15:49:00 Test Item Value Reference Range Interpretation [...] U/L 38-126 N (test code = ALKP) [id number] 15:49:00 Test Item Value Reference Range Interpretation Comments LIPASE (test code = LIP) U/L 23-300 CBC W/AUTO [id number] 15:30:00 Test Item Value Reference Range Interpretation [...] 3/uL 0.0-0.1 N - XR CHEST 1 [id number] 15:03:00 [facility] : 1995 Sex: F [place] St: PRE -- Name: NATIVIDAD KLINEwood : 1995 Age/S: 24/F [address] Unit #: [id number] Loc: [place] [address] Phys: Mason Schofield Acct: [id number] Dis Date: Status: PRE ER PHONE #: [phone] Exam Date: 01/15/2020 0613 FAX #: [phone] Reason: CODE SEPSIS EXAMS: CPT CODE: [id number] XR CHEST 1 V 53875 EXAM: Portable chest x-ray, one view INDICATION: [...] Electronically Signedby Padmini Vallejo on 01/15/2020 at 1502 Reported and signed by: Mu Vallejo M.D. CC: Technologist: MANPREET COSBY; STUDENT 2ND YEAR Trnrird Date/Time/By: 01/15/2020 (7467) : By: Jaydon PAGE 1 SignedReport [place]: [facility]: PRE --- Name: CRISTINONATIVIDAD BUSTAMANTE [facility] [place] : 1995 Age/S: 24/F [address] Unit #: [id number] Loc: [place] [address] Phys: Mason Schofield Acct: [id number] Dis Date: Status: PRE ER PHONE #: [phone] Exam Date: 01/15/2020 1455 FAX #: [phone] Reason: CODE SEPSIS EXAMS: CPT CODE: [id number] XR CHEST 1 V 59791 <Continued> Orig Print D/T: S: 01/15/2020 (1507) PAGE 2 Signed Report- XR CHEST 1 [id number] 15:03:00 [facility] : 1995 Sex: F [place]: [address]RE[address] St: DIS -- Name: NATIVIDAD KLINE [facility] : 1995 Age/S: 24/F [address] Unit #: [id number] Loc: [place] [address] Phys: Mason Schofield Acct: [id number] Dis Date: [id number] Status: DIS IN PHONE #: [phone] Exam Date: 01/15/2020 1450 FAX #: [phone] Reason: CODE SEPSIS EXAMS: CPT CODE: [id number] XR CHEST 1 V 44010 EXAM: Portable chest x-ray, one view INDICATION: CODE SEPSIS kidneypain, diagnosed with kidney stone LOCATION CODE: C3 COMPARISON: None TECHNIQUE: Single Portable AP upright view of the chest DISCUSSION: Moderate increased bilateral perihilar marking is seen. Peribron chial thickening is noted. Interstitial thickening bilaterally are noted. Heart and mediastinal contours unremarkable. No pneumothorax or pleural effusion seen. Osseous structures are within normal limit. IMPRESSION: 1. Interstitial thickening suggest bronchitis and/or viral pneumonitis. at 1503 Reported and signed by: Mu Vallejo M.D. CC: Technologist: HARJEET CASE; STUDENT 2ND YEAR Trnrird Date/Time/By: 01/15/2020 (8686) : By: MistyHPRachelle PAGE 1 Signed Report [place]: St: DIS Name: NATIVIDAD KLINE [facility] : 1995 Age/S: 24/F [address] Unit #: [id number] Loc: [address] [place] [address] Phys: Mason Schofield Acct: [id number] Dis Date: [id number] Status: DIS IN PHONE #: [phone] Exam Date: 01/15/2020 1450 FAX #: [phone] Reason: CODE SEPSIS EXAMS: CPT CODE: [id number] XR CHEST 1 V 91226 (Continued) Orig Print D/T: S: 01/15/2020 (9312) PAGE 2 Signed ReportLACTIC [id number] 01:50:00 Test Item Value Reference Range Interpretation Comments LACTIC ACID (test code = LACT) 1.2 mmol/L 0.7-2.0 N COMPREHENSIVE METABOLIC [id number] 00:45:00 Test Item Value Reference Range Interpretation [...] N (test code = ALKP) HCG SERUM [id number] 00:45:00 Test Item Value Reference Range Interpretation Comments HCG SERUM QUAL (test code = HCGQL) NEGATIVE NEGATIVE LACTIC [id number] 00:13:00 Test Item Value Reference Range Interpretation Comments LACTIC ACID (test 2.3 mmol/L 0.7-2.0 HH Critical V alue reported code = LACT) toFirst Name:AYAN K9646 Last Name:CHEL FABIANA READ BACK AND [employer]UR[employer]A ShuklaLAB.WR, on , @ 0013. UA RFLX MICR CULT IF [id number] 00:06:00 Test Item Value Reference Range Interpretation [...] Dysuria/FrequencySOURCE OF URINE: CLEAN CATCH COMPREHENSIVE METABOLIC [id number] 23:43:00 Test Item Value Reference Range Interpretation [...] N (test code = ALKP) HCG SERUM [id number] 23:43:00 Test Item Value Reference Range Interpretation Comments HCG SERUM QUAL (test code = HCGQL) NEGATIVE CBC W/AUTO [id number] 23:38:00 Test Item Value Reference Range Interpretation [...] BA#) 0.06 x10 3/uL 0.0-0.1 N LACTIC [id number] 19:19:00 Test Item Value Reference Range Interpretation Comments LACTIC ACID (test code = LACT) 1.6 mmol/L 0.7-2.0 N UA RFLX MICR CULT IF [id number] 18:41:00 Test Item Value Reference Range Interpretation [...] Flank PainSOURCE OF URINE: CLEAN CATCHBASIC METABOLIC [id number] 18:39:00 Test Item Value Reference Range Interpretation [...] 10.0 mg/dL 8.4-10.2 N CA) LIVER FUNCTION [id number] 18:39:00 Test Item Value Reference Range Interpretation [...] U/L 38-126 N (test code = ALKP) [id number] 18:39:00 Test Item Value Reference Range Interpretation Comments LIPASE (test code = LIP) 81 U/L 23-300 N BASIC METABOLIC [id number] 18:37:00 Test Item Value Reference Range Interpretation [...] 10.0 mg/dL 8.4-10.2 N CA) LIVER FUNCTION [id number] 18:37:00 Test Item Value Reference Range Interpretation [...] U/L 38-126 N (test code = ALKP) [id number] 18:37:00 Test Item Value Reference Range Interpretation Comments LIPASE (test code = LIP) U/L 23-300 - CT ABD PELVIS W/O [id number] 18:36:00 [facility] : 1995 Sex: F FAX: Mayelin Santos [phone] [place]: St: PRE Name: NATIVIDAD KLINE [facility] : 1995 Age/S: 24/F [address] Unit: [id number] Loc: [place] [address] Phys: Mayelin Tyler ADMITTING MANAGER Acct: [id number] Dis Date: Status: PRE ER PHONE #: [phone] Exam Date: 01/13/2020 1820 FAX #: [phone] Reason: flank pain EXAMS: CPT CODE: [id number] CT ABD PELVIS W/O CONT 89049 Examination: Abdomen and pelvic CT without contrast Location code: S17 Comparison: Abdomen and pelvic CT July 22, 2012 Technique: Axial noncontrast contiguous images were obtained through the abdomen and pelvis followed by coronal and sagittal reformations. All CT scans are performed using radiation dose reduction technique. Technical factors are evaluated and adjusted to insure appropriate moderationof exposure. Automated dose management technology is applied to adjust the radiation dose to minimize exposure while achieving a diagnostic quality image. Discussion: Clinical history is remarkable forflank pain. Lung bases are clear. Heart is [...] diverticulitis. at 1836 Reported and signed by: Stacey Neff PAGE 1 Signed Report (CONTINUED) FAX: Mayelin Santos [phone] [place]: St: PRE----- Name: NATIVIDAD KLINE [facility] : 1995 Age/S: 24/F [address] Unit: [id number] Loc: [place] [address] Phys: Mayelin Tyler NP Acct: [id number] Dis Date: Status: PRE ER PHONE #: [phone] Exam Date: 01/13/2020 1820 FAX #: [phone] Reason: flank pain EXAMS: CPT CODE: [id number] CT ABD PELVIS W/O CONT 63901 (Continued) CC: Mayelin Tyler NP Technologist: Rosa Savage Trnscrd Dt/Tm: 01/13/2020 (1835) [id number] Orig Print D/T: S: 01/13/2020 (1838 PAGE 2 Signed ReportUA RFLX MICR CULT IF [id number] 18:33:00 Test Item Value Reference Range Interpretation [...] x10 3/uL 0.0-0.[address] Stone ProtocolCHI [facility] : 1995 [facility] Name: NATIV[facility]AD KLINE [address] [facility] Phys: [place] [address] : 1995 Age: 25 SEX:F [phone] Exam Date: 01/17/21 Status: REG ER Acct: [id number] Loc: RAS HERNANDEZ Pt Unit #: [id number] Report #: [id number] CC: Dennis Forman DO CAT SCAN REPORT Order # Category/Exam [id number] CT/CT Stone Protocol ([id number]): . Results CT ABDOMEN NONCONTRAST CT PELVIS NONCONTRAST: (Urolithiasis protocol) DATE: 01/17/2021 HISTORY:Left flank pain TECHNIQUE: IV injection of iodinated contrast media: None Oral contrast media: None FINDINGS: Other than for urolithiasis, the lack of IV and oral contrast limits the evaluation. Liver:No contour abnormalities. Spleen: No splenomegaly. Pancreas: No [...] uropathy Reported By: Juan Pablo Arnold Electronically Lavern d: 01/17/2021 6:32 PM Reported By: Juan Pablo Arnold MD Electronically Signed Date/Time: 01/17/21 183 Technologist: BOBBY Dictated Date/Time: 01/17/21 1829 Transcribed Date/Time: Notes Date/Time Note Provider Source 2021-09-17 17:56:00-00:00 [facility]Y PROVIDER REPORT REPORT#:[id number] REPORT STATUS: Signed DATE:09/17/21 TIME: 175 PATIENT: NATIVIDAD KLINE UNIT #: [id number] ROOM: BED: AGE: 26 SEX: F PCP PHYS: Undefined Provider SERVICE AUTHOR: Johnathan Madird MD, MD * ALL edits or amendments must be made on the [employer]/computer document * HPI- Female Free Text HPI Notes Free Text HPI Notes 26-year-old female [place] is here for flank pain. Patient states that she was admitted a couple weeks agO for pyelonephritis. Was also told she had a kidney stone that was going to pass at debi e point.. Pain started today. History of morphine allergy. Pain is on the left side. Patient is 24 weeks . General Confirmed Patient Yes Patient Type New patient Initial Greet Date/Time 09/17/211729 Presentation Chief Complaint Flank pain L Hx Obtained From Patient )( Sudden in Onset? Yes Onset Occurred Today Symptom Duration Since onset Progression since Onset Constant Severity: Onset Moderate Severity: Current Moderate Review of Systems ROS Statements All systems rev neg except as marked. Focused Review of Systems Constitutional Denies: Chills, Fatigue, Fever. Ears/Nose/Throat Denies: Ear ringing bilat, Earache bilat, Nasal congestion. GI Denies: Abdominal pain, Nausea, Vomiting. Female Reports: Flank pain (left). Denies: Dysuria. Musculoskeletal Denies: Back pain, Extremity pain, Extremity swe lling. Skin Denies: Abrasion, Abscess, Rash. Neurologic Denies: Dizziness, Generalized weakness, Headach e. Additional Review of Systems Eyes Denies: Blurred bilat, Discharge bilat. Respiratory Denies: Cough, non-productive, Shortness of paco th, Wheezing. Cardiovascular Denies: Chest pain, Palpitations, Syncope. Psychiatric Denies: Agitation, Anxiety, Stress. Past Medical History - Adult Stated Complaint Allergies Coded Allergies: No Known Allergies (09/17/21) Calculated Suicide Risk (nurs) No risk Review of Nursing Notes Rev avail, and agree Pt reports no significant: Past medical history, Past surgical history, Family history, Social history Smoking status for patients 13 years old or olde r: Never Smoker Physical Exam Vital Signs Vital Signs First Documented: Result Date Time Pulse Ox 99 09/17 1732 B/P 110/68 09/17 1732 B/P Mean 82 09/17 1732 Temp 97.6 09/17 1732 Pulse 105 09/17 1732 Resp 18 09/17 1732 Last Documented: Result Date Time Pulse Ox 99 09/18 1931 B/P 112/64 09/18 1931 B/P Mean 80 09/18 1931 Temp 98.2 09/18 1931 Pulse 88 09/18 1931 Resp 18 09/18 1931 Review of Vital Signs Reviewed Focused PE General/Const General/Const Awake, Alert Text/Dict Notes Moderate distress. Resp/Chest Respiratory/Chest Breath sounds NL, Breath soun ds = bilat, No respiratory distress Cardiovascular Cardiovascular Heart rate NL, Regular rhythm, H eart sounds NL Abdomen/GI Abdomen/GI Soft, Non-tender MS Back Back Inspection NL, Full range of motion, Painl ess range of motion Skin Skin Color NL, No rash, Warm, Dry, Intact Genitourinary General Exam deferred Additional PE MS Head Head Atraumatic, Normocephalic Eyes Eyes PERRL, EOMI Ears/Nose/Throat Ears/Nose/Throat Airway patent, Mucous membrane s moist, Pharynx NL MS Neck Neck Supple, No meningismus, Full range of [place] on MS Upper Extrem Upper Extremity/MS Inspection NL, Full range of motion, No swelling MS Lower Extrem Lower Ext/Pelvis/MS Inspection NL, Full range o f motion, No swelling Neurologic Neurologic Oriented X3, Speech NL, No m otor deficits, No sensory deficits, CN II - XII intact Psychiatric Psychiatric Affect NL, Mood NL Interpretation Diagnostics Lab Results Interpretation Results Laboratory Tests 09/17/21 1809: [Embedded Image Not Available] Laboratory Tests: 09/17 09/17 1730 1809 Chemistry Sodium (136 - 145 mmol/L) 139 Potassium (3.4 - 4.5 mmol/L) 3.7 Chloride (98 - 107 mmol/L) 114 H Carbon Dioxide (20 - 31 mmol/l) 20 BUN (9 - 23 mg/dL) 7 L Creatinine (0.55 - 1.02 mg/dL) 0.54 L Glomerular Filtr Rate (>60) >=60 max estimate Glucose (74 - 106 mg/dL) 87 Calcium (8.6 - 10.3 mg/dL) 10.2 Total Bilirubin (0.3 - 1.2 mg/dL) 0.2 L Direct Bilirubin (0.0 - 0.3 mg/d/L) <0.1 Indirect Bilirubin (0.0 - 1.2 mg/dL) 0.2 AST (0 - 34 U/L) 23 ALT (10 - 49 U/L) 25 Total Alk Phosphatase (46 - 116 U/L) 74 Total Protein (5.7 - 8.2 g/dL) 7.2 Albumin (3.4 - 5.0 g/dl) 3.4 Lipase (12 - 53 U/L) 37 Hematology WBC (5.0 - 12.0 K/mm3) 13.22 H RBC (4.20 - 5.40 M/mm3) 3.76 L Hgb (12.0 - 16.0 G/DL) 11.0 L Hct (34.9 - 44.5 %) 33.2 L MCV (81 - 99 fL) 88 MCH (27 - 31 PGM) 29.3 MCHC (33 - 37 G/DL) 33.1 RDW (11.6 - 16.2 %) 18.5 H Plt Count (130 - 400 K/mm3) 358 MPV (7.4 - 10.4 fl) 10.0 Neut % (Auto) (43 - 65 %) 77.6 H Lymph % (Auto) (20.5 - 45.5 %) 15.2 L Whiteside % (Auto) (5.5 - 11.7 %) 4.8 L Eos % (Auto) (0.9 - 2.9 %) 1.5 Baso % (Auto) (0.2 - 1.0 %) 0.3 Neut # (Auto) (2.2 - 4.8 K/mm3) 10.26 H Lymph # (Auto) (1.3 - 2.9 K/mm3) 2.01 Whiteside # (Auto) (0.3 - 0.8 K/mm3) 0.63 Eos # (Auto) (0.0 - 0.2 K/MM3) 0.20 Baso # (Auto) (0.0 - 0.1 K/mm3) 0.04 Immature Gran % (0.0 - 2.0 %) 0.6 Nucleated RBC % (0 - 1.0 %) 0.0 Urines Urine Color (YELLOW) Yellow Urine Appearance (CLEAR) TURBID A Urine pH (4.5 - 8.5) 6.5 Ur Specific [place] (1.000 - 1.030) 1.020 Urine Protein (NEGATIVE MG/DL) TRACE A Urine Glucose (UA) (NEGATIVE MG/DL) NEG Urine Ketones (NEGATIVE MG/DL) NEG Urine Blood (NEGATIVE) 1+ A Urine Nitrite (NEGATIVE) NEG Urine Bilirubin (NEGATIVE) NEG Urine Urobilinogen (<=1.0 EU/dL) NORMAL Ur Leukocyte Esterase (NEGATIVE) NEG Urine RBC (0 - 3 /HPF) 40-50 H Urine WBC (0 - 3 /HPF) 5-10 H Ur Squamous Epith Cells (NONE - FEW /HPF) FEW Calcium Oxalate Crystal (NONE SEEN /HPF) RARE H Urine Bacteria (NONE SEEN /HPF) 1+ H Urine Mucus (NONE - FEW /LPF) FEW Recent Impressions: ULTRASOUND - US RETRO LTD 09/17 1842 Report Impression - Status: SIGNED Entered: 09/17/[id number] IMPRESSION: Normal renal sonogram. Impression By: Lilly Cordoba MD Lab Imaging Statement Laboratory radiographic studies reviewed and con sidered in the medical decision-making. Point of Care Testing Pulse Oximetry Pulse Ox % 99 On: Room air Interpretation Interpreted by me, Pulse oximetr y normal Time 1733 Re-Evaluation MDM Free Text MDM Notes Free Text MDM Notes ddx: kidney stone, uti, pyelo Re-Evaluation/Progress Re-Evaluation/Progress Time of Re-Eval 1918 Re-Eval Status Improved ED Course Medication(s) Ordered Medication(s) Ordered: Central Nervous System Agents Sig/Berenice Start time Last Medication Dose Route Stop Time Status Admin Hydromorphone HCl 1 MG X1ED STA 09/17 191 DC IV 09/17 1920 Hydromorphone HCl 1 MG X1ED STA 09/17 1813 DC 0 7/05 IV 07/05 1814 1820 Hydromorphone HCl 1 MG X1ED STA 09/17 1753 DC 0 7/05 IM / 1754 1756 Patient Discharge Departure Vital Signs/Condition Vital Signs First Documented: Result Date Time Pulse Ox 99 07/ 1733 B/P 110/68 / 1733 B/P Mean 82 / 1733 Temp 97.6 / 1733 Pulse 105 07/05 1733 Resp 18 09/17 1733 Last Documented: Result Date Time Pulse Ox 99 09/17 193 B/P 112/64 09/17 193 B/P Mean 80 / 193 Temp 98.2 / 193 Pulse 88 / 193 Resp 18 09/17 193 All vital signs available at the time of this en try have been reviewed. Condition Stable, Improved Clinical Impression Clinical Impression Primary Impression: Kidney stone Disposition Decision Discharge )( Discharged to Home Yes )( Time 1918 )( Date 09/17/21 Discharge/Care Plan Counseled Regarding Diagnosi s, Lab results, Imaging studies, Need for follow-up, When to return to ED Rx Drug Database Reviewed Yes (Auto) Prescriptions Current Visit Scripts Hydrocodone/Apap (Wedron 5/325) 1 TAB PO Q6H PRN PRN ACUTE PAIN Hydrocodone/Apap (Wedron 5/325) 1 TAB PO Q6H PRN PRN ACUTE PAIN #20 TABS Prescriptions Reviewed Risks, Benefits, Alternat ida treatment Patient Instructions ED Kidney Stone w/ Colic Referrals Provider Referral: Juan Pablo Christian MD Follow-Up: As Needed Address: [facility] [address] [place] [address] Discharge Note I have spoken with the patie nt and/or caregivers. I have explained the patient's condition, diagnoses and gwyn atment plan based on the information available to me at this time. I have answered the patient's and/ or caregiver's questions and addressed any concerns. The patient and/or careg martin have as good an understanding of the patient 's diagnosis, condition and treatment plan as can be expected at this point. The vital signs have bee n stable. The patient's condition is stable and appr opriate for discharge from the emergency department. The patient will pursue further outpatient evalu ation with the primary care physician or other designated or consulting phys ician as outlined in the discharge instructions. The patient and/or caregivers are agreeable to this plan of care and follow-up instructions have been exp lained in detail. The patient and/or caregivers have received these instructio ns in written format and have expressed an understanding of the discharge inst ructions. The patient and/or caregivers are aware that any significant change in condition or worsening of symptoms should prompt an immediate return to [facility] or the closest emergency department or a call to 1. Quality Measures BP F/U for HTN BP in normal range at 0619 RPT #:[id number] END OF REPORT 2020-04-25 00:37:00-00:00 [facility]ENC[facility] PROVIDER REPORT REPORT#:[id number] REPORT STATUS: Signed DATE:04/25/20 TIME: 36 PATIENT: NATIVIDAD KLINE UNIT #: [id number] ROOM/BED: AGE: 24 SEX: F PCP PHYS: Undefined Provider SERVICE AUTHOR: Johnathan Mauro MD R1 * ALL edits or amendments must be made on the [employer]/computer document * Johnathan Mauro 04/25/20 0037: HPI- Female General Initial Greet Date/Time 04/24/20 2311 Presentation Chief Complaint Flank pain L )( Sudden in Onset? No Free Text HPI Notes Free Text HPI Notes 24-year-old female with history of kidne y stones presents with left flank pain for approximately a week, diagnosed with 3 mm ki dney stone [address], patient reports at 4:00 this afternoon pain became much worse. Patient refusing CT scan and requesting ultrasound instead. Narcotic score 610, patient has 100 prescription s for narcotics listed and 49 prescribers. Review of Systems ROS Statements All systems rev neg except as marked. Complete sys rev neg except as marked. Additional Review of Systems Eyes Denies: Eye pain L, Redness R. Respiratory Denies: Cough, productive, Parox nocturnal dyspn ea. Cardiovascular Denies: Edema, Orthopnea. Hematologic Denies: Bleeding, Bruising. Allergy/Immun Denies: Anaphylaxis, Itching. Psychiatric Denies: Confusion, Insomnia. Past Medical History - Adult Stated Complaint ABD PAIN BLOOD URINE X 1 WEEK, INCREASE 1600 Allergies Coded Allergies: azithromycin (From ZITHROMAX) (Severe, SWELLS ) doxycycline (Severe, THROAT CLOSES 04/24/16) metoclopramide (From REGLAN) (MUSCLE SPASM 02/01) Home Medications Active Scripts FLUCONAZOLE (DIFLUCAN) 150 MG PO ONCE 1 Days #1 TAB Prov: 01/17/20 LEVOFLOXACIN (LEVAQUIN) 750 MG PO DAILY LEVOFLOXACIN (LEVAQUIN) 750 MG PO DAILY #5 TABS Prov: Mayelin Tyler* 01/13/20 ACETAMINOPHEN/CODEINE (TYLENOL WITH CODE INE #3 300/30 MG) 1 TAB PO Q4H PRN PRN ACUTE PAIN ACETAMINOPHEN/CODEINE (TYLENOL WITH CODEINE #3 300/30 MG) 1 TAB PO Q4H PRN PRN ACUTE PAIN #8 TABS Prov: Mayelin Tyler* 01/13/20 KETOROLAC (TORADOL) 10 MG PO Q6H PRN PRN PAIN KETOROLAC (TORADOL) 10 MG PO Q6H PRN PRN PAIN # 20 TABS Prov: Mayelin Tyler A* 01/13/20 PROMETHAZINE (PHENERGAN) 25 MG PO Q6H PRN PRN NA USEA/VOMITING PROMETHAZINE (PHENERGAN) 25 MG PO Q6H PRN PRN N AUSEA/VOMITING #10 TABS Prov: Mayelin Tyler A* 01/13/20 TAMSULOSIN ER (FLOMAX) 0.4 MG PO DAILY TAMSULOSIN ER (FLOMAX) 0.4 MG PO DAILY #5 CAPS Prov: 01/15/20 ACETAMINOPHEN/CODEINE (TYLENOL WITH CODE INE #3 300/30 MG) 1 TAB PO Q6H PRN PRN abdominal pain/ flank pain 5 Days #20 TABS Prov: 01/17/20 Reported Medications GABAPENTIN (NEURONTIN) 600 MG PO TID busPIRone (BUSPAR) 10 MG PO TID DULoxetine DR (CYMBALTA) 60 MG PO DAILY TAMSULOSIN ER (FLOMAX) 0.4 MG PO DAILY traZODone (DESYREL) 200 MG PO BEDTIME acetaZOLAMIDE (DIAMOX) 250 MG PO Q8H PNV WITH FE FUMARATE/FA () 1 TAB PO JF Y TAMSULOSIN ER (FLOMAX) 0.4 MG PO DAILY ONDANSETRON ODT (ZOFRAN ODT) 4 MG PO Q6H PRN PRN NAUSEA/VOMITING IBUPROFEN (MOTRIN) 600 MG PO Q8H PRN PRN PAIN Past Medical History: Reports: Urinary tract infection. Additional Medical History nephrolithiasis UTI pyelonephritis sepsis Additional Surgical History ureteral stent Alcohol Use Denies EtOH use Drug Use Denies recreational drugs Smoking status: Smoking status for patients 13 years old or old er: Unknown,if ever smoked Physical Exam Additional PE Eyes Eyes Atraumatic, EOMI Ears/Nose/Throat Ears/Nose/Throat Atraumatic, Airway patent Neurologic Neurologic Oriented X3, No motor deficits Re-Evaluation MDM Free Text MDM Notes Free Text MDM Notes [address] abd Free Text MDM Notes Free Text MDM Notes 24F with history of multiple kidney stones comes to [place] she feels like she is passing a kidney ston e. she is already on keflex and flomax from her PCP. she endorsed morphine did not help her pain and she is allergic to NSAIDS. Pt was pacing around lobby the duration of her stay. Labs unreamarkable,no fever or signs of systemic infection, US showed no obstru cting stone in L kidney, no hydrophephrosis. Pt refused CT abd pelvis. Pt was discahrged home with Tylenol # 3 for pain control and F/u with PCP. Patient Discharge Departure Clinical Impression Clinical Impression Primary Impression: Kidney calculus Disposition Decision Discharge )( Discharged to Home Yes )( Time 0323 )( Date 04/25/20 Discharge/Care Plan Patient Instructions ED Kidney Stone w/ Colic, E D Urine Strainer Referrals PRIMARY CARE: 2-3 Days Discharge Note I have spoken with the patie nt and/or caregivers. I have explained the patient's condition, diagnoses and gwyn atment plan based on the information available to me at this time. I have answered the patient's and/ or caregiver's questions and addressed any concerns. The patient and/or careg martin have as good an understanding of the patient 's diagnosis, condition and treatment plan as can be expected at this point. The vital signs have bee n stable. The patient's condition is stable and appr opriate for discharge from the emergency department. The patient will pursue further outpatient evalu ation with the primary care physician or other designated or consulting phys ician as outlined in the discharge instructions. The patient and/or caregivers are agreeable to this plan of care and follow-up instructions have been exp lained in detail. The patient and/or caregivers have received these instructio ns in written format and have expressed an understanding of the discharge inst ructions. The patient and/or caregivers are aware that any significant change in condition or worsening of symptoms should prompt an immediate return to [facility] or the closest emergency department or a call to 911. Jonas Lambert 04/25/20 032: Review of Systems Focused Review of Systems Constitutional Denies: Chills, Fever, Lethargy. Ears/Nose/Throat Denies: Earache bilat, Nasal congestion, Sore th roat. GI Denies: Abdominal pain, Diarrhea, Nausea, Vomiti ng. Female Reports: Dysuria. Denies: Fl ank pain, Hematuria, Incontinence, Nocturia, Pelvic pain, , Urinary frequency, Urinary urgen cy, Urination decreased, Urination increased, Vaginal bleeding - abnl, Va ginal discharge. Musculoskeletal Denies: Back pain, Extremity pain. Endocrine Denies: Polyuria, Weight loss. Skin Denies: Diaphoresis, Rash. Neurologic Denies: Change LOC, Dizziness, Focal weakness, H eadache, Numbness, Slurred speech. Physical Exam Vital Signs Vital Signs First Documented: Result Date Time O2 Delivery Room air 04/24 2312 Pulse Ox 99 04/24 2314 B/P 116/79 04/24 2314 B/P Mean 91.6 04/24 2314 Temp 36.6 04/24 2314 Pulse 148 04/24 2314 Resp 16 04/24 2314 Last Documented: Result Date Time Pulse Ox 99 04/24 2314 B/P 116/79 04/24 2314 B/P Mean 91.6 04/24 2314 Temp 36.6 04/24 2314 Pulse 148 04/24 2314 Resp 16 04/24 2314 O2 Delivery Room air 04/24 2312 Review of Vital Signs Reviewed Focused PE General/Const General/Const Awake, Alert, Well appearing Resp/Chest Respiratory/Chest Breath sounds NL, Breath soun ds = bilat, No respiratory distress, No rales, No rhonchi, No wheezing Cardiovascular Cardiovascular Heart rate NL, Regular rhythm, H eart sounds NL, Peripheral circulation NL Abdomen/GI Abdomen/GI Soft, Non-tender, No guarding, No re bound MS Back Back Inspection NL, Non-tender, No CVA tenderne ss Skin Skin Color NL, No rash, Warm, Dry, Turgor NL Genitourinary Female Genitourinary External genitalia NL, No bleeding, No discharge, No cervical motion tend, Os closed, No adnexal mass , No adnexal tenderness, No uterine enlargement, No uterine mass, No lesions or rash Interpretation Diagnostics Lab Results Interpretation Results Laboratory Tests 04/24/20 2345: [Embedded Image Not Available] Laboratory Tests: 04/25 04/25 04/25 04/24 0149 0045 0003 2345 Chemistry Lactic Acid (0.7 - 2.0 mmol/L) 1.0 2.1 *H Lipase (23 - 300 U/L) 54 Urines Urine Color (Yellow) DARK YELLOW Urine Appearance (Clear) Cloudy H Urine pH (5.0 - 8.0) 5.0 Ur Specific Calhoun (<1.030) 1.030 Urine Protein (Negative mg/dL) 30 (1+) H Urine Glucose (UA) (Negative) Negative Urine Ketones (Negative mg/dL) Trace H Urine Blood (Negative) Negative Urine Nitrite (Negative) Negative Urine Bilirubin (Negative) Negative Urine Urobilinogen (Negative mg/dL) 2.0 H Ur Leukocyte Esterase (Negative) NEGATIVE Urine RBC (<4 - 5 /HPF) 4-5 H Urine WBC (<4 - 5 /HPF) 6-10 H Ur Squamous Epith Cells (0 - 5 (RARE) 6-15 (FEW ) H /HPF) Urine Bacteria (None - Rare /HPF) None Urine Mucus (<Rare /LPF) 4+ H Urine HCG, Qual (NEGATIVE) NEGATIVE 04/24 2345 Chemistry Sodium (137 - 145 mmol/L) 142 Potassium (3.4 - 5.0 mmol/L) 3.6 Chloride (98 - 107 mmol/L) 107 Carbon Dioxide (22 - 30 mmol/L) 22 BUN (7 - 17 mg/dL) 11 Creatinine (0.5 - 1.0 mg/dL) 1.0 Glomerular Filtr Rate (>60) 72 Glucose (74 - 106 mg/dL) 114 H Calcium (8.4 - 10.2 mg/dL) 9.7 Total Bilirubin (0.2 - 1.3 mg/dL) 0.3 Conjugated Bilirubin (0 - 0.3 mg/dL) 0 Unconjugated Bilirubin (0 - 1.1 mg/dL) 0.3 AST (15 - 46 U/L) 51 H ALT (0 - 34 U/L) 20 Total Alk Phosphatase (38 - 126 U/L) 72 Total Protein (6.3 - 8.2 g/dL) 8.3 H Albumin (3.5 - 5.0 g/dL) 4.9 Hematology WBC (5.0 - 12.0 x10 3/uL) 11.7 RBC (4.20 - 5.40 x10 6/uL) 4.28 Hgb (12.0 - 16.0 g/dL) 11.7 L Hct (36.0 - 46.0 %) 36.8 MCV (81 - 99 fL) 86 MCH (27 - 31 pg) 27.3 MCHC (33 - 37 g/dL) 31.8 L RDW (11.5 - 15.5 %) 15.9 H Plt Count (130 - 400 x10 3/uL) 502 H MPV (9.4 - 16.4 fL) 9.8 Neut % (Auto) (43 - 65 %) 62.3 Lymph % (Auto) (20.5 - 45.5 %) 30.0 Whiteside % (Auto) (5.5 - 11.7 %) 6.3 Eos % (Auto) (0.9 - 2.9 %) 0.9 Baso % (Auto) (0.2 - 1.0 %) 0.3 Neut # (Auto) (2.2 - 4.8 x10 3/uL) 7.29 H Lymph # (Auto) (1.3 - 2.9 x10 3/uL) 3.51 H Whiteside # (Auto) (0.3 - 0.8 x10 3/uL) 0.74 Eos # (Auto) (0.0 - 0.2 x10 3/uL) 0.11 Baso # (Auto) (0.0 - 0.1 x10 3/uL) 0.04 Immature Gran % (0.0 - 2.0 %) 0.2 Nucleated RBC % (0 - 1.0 %) 0.0 Microbiology: Date/Time Procedure - Status Source Growth 04/25 0003 Blood Culture - RECD BLOOD 04/25 0003 Blood Culture - RECD BLOOD Recent Impressions: ULTRASOUND - US RETRO LTD 04/24 2329 Report Impression - Status: SIGNED Entered: 04/25/2020 001 IMPRESSION: A punctate nonobstructing stone is seen in the l eft kidney. Impression By: [email or web address] - Leonel Delacruz MD Re-Evaluation MDM ED Course Medication(s) Ordered Medication(s) Ordered: Anti-Infective Agents Sig/Berenice Start time Last Medication Dose Route Stop Time Status Admin Ceftriaxone Sodium 1,000 MG X1ED STA 04/24 2316 DC 04/25 Sterile Water 10 ML IV 04/24 2318 0011 Central Nervous System Agents Sig/Berenice Start time Last Medication Dose Route Stop Time Status Admin Acetaminophen/ 1 TAB X1ED STA 04/25 0319 DC Codeine Phosphate PO 04/25 0320 0327 Morphine Sulfate 4 MG X1ED STA 04/247 DC IV 04/24 2317 0010 Electrolytic, Caloric, And Alex Sig/Berenice Start time Last Medication Dose Route Stop Time Status Admin Sodium Chloride 1,000 ML X1ED STA 04/24 2316 DC 04/25 IV 04/24 2317 0008 Gastrointestinal Drugs Sig/Berenice Start time Last Medication Dose Route Stop Time Status Admin Ondansetron HCl 4 MG X1ED STA 04/24 2316 DC IV 04/24 2317 0009 Patient Discharge Departure Vital Signs/Condition Vital Signs First Documented: Result Date Time O2 Delivery Room air 04/24 2312 Pulse Ox 99 04/24 2314 B/P 116/79 04/24 2314 B/P Mean 91.6 04/24 2314 Temp 36.6 04/24 2314 Pulse 148 04/24 2314 Resp 16 04/24 2314 Last Documented: Result Date Time Pulse Ox 99 04/24 2314 B/P 116/79 04/24 2314 B/P Mean 91.6 04/24 2314 Temp 36.6 04/24 2314 Pulse 148 04/24 2314 Resp 16 04/24 2314 O2 Delivery Room air 04/24 2312 All vital signs available at the time of this en try have been reviewed. Discharge/Care Plan (Auto) Prescriptions Current Visit Scripts ACETAMINOPHEN/CODEINE (TYLENOL WITH CODE INE #3 300/30 MG) 1 TAB PO Q4H PRN PRN ACUTE PAIN ACETAMINOPHEN/CODEINE (TYLENOL WITH CODEINE #3 300/30 MG) 1 TAB PO Q4H PRN PRN ACUTE PAIN #10 TABS Supervising Physician Note Resident Saw Pt This patient was seen by a resident. I have pers onally seen the patient, performed the critical or kumari portions o f the service, and participated in the management of the patient. I have review ed and agree with the resident's note, and I have reviewed all labs , ECGs, and imaging studies or reports. I agree with this resident's findings, exam and plan. at 0652 RPT #:[id number] END OF REPORT 2020-04-25 00:37:00-00:00 [facility] ([facility] EMERGENCY PROVIDER REPORT REPORT#:[id number] REPORT STATUS: Signed DATE:04/25/20 TIME: 36 PATIENT: NATIVIDAD KLINE UNIT #: [id number] ROOM/BED: AGE: 24 SEX: F PCP PHYS: Undefined Provider SERVICE AUTHOR: Johnathan Mauro MD R1 * ALL edits or amendments must be made on the [employer]/computer document * Johnathan Mauro 04/25/20 003: HPI- Female Presentation Chief Complaint Flank pain L )( Sudden in Onset? No Free Text HPI Notes Free Text HPI Notes 24-year-old female with history of kidne y stones presents with left flank pain for approximately a week, diagnosed with 3 mm ki dney stone [address], patient reports at 4:00 this afternoon pain became much worse. Patient refusing CT scan and requesting ultrasound instead. Narcotic score 610, patient has 100 prescription s for narcotics listed and 49 prescribers. Review of Systems ROS Statements All systems rev neg except as marked. Complete sys rev neg except as marked. Additional Review of Systems Eyes Denies: Eye pain L, Redness R. Respiratory Denies: Cough, productive, Parox nocturnal dyspn ea. Cardiovascular Denies: Edema, Orthopnea. Hematologic Denies: Bleeding, Bruising. Allergy/Immun Denies: Anaphylaxis, Itching. Psychiatric Denies: Confusion, Insomnia. Past Medical History - Adult Stated Complaint ABD PAIN BLOOD URINE X 1 WEEK, INCREASE 1600 Allergies Coded Allergies: azithromycin (From ZITHROMAX) (Severe, SWELLS ) doxycycline (Severe, THROAT CLOSES 04/24/16) metoclopramide (From REGLAN) (MUSCLE SPASM 02/01) Home Medications Active Scripts FLUCONAZOLE (DIFLUCAN) 150 MG PO ONCE 1 Days #1 TAB Prov: 01/17/20 LEVOFLOXACIN (LEVAQUIN) 750 MG PO DAILY LEVOFLOXACIN (LEVAQUIN) 750 MG PO DAILY #5 TABS Prov: Mayelin Tyler* 01/13/20 ACETAMINOPHEN/CODEINE (TYLENOL WITH CODE INE #3 300/30 MG) 1 TAB PO Q4H PRN PRN ACUTE PAIN ACETAMINOPHEN/CODEINE (TYLENOL WITH CODEINE #3 300/30 MG) 1 TAB PO Q4H PRN PRN ACUTE PAIN #8 TABS Prov: Mayelin Tyler* 10/30/20 KETOROLAC (TORADOL) 10 MG PO Q6H PRN PRN PAIN KETOROLAC (TORADOL) 10 MG PO Q6H PRN PRN PAIN # 20 TABS Prov: Mayelin Tyler A* 01/13/20 PROMETHAZINE (PHENERGAN) 25 MG PO Q6H PRN PRN NA USEA/VOMITING PROMETHAZINE (PHENERGAN) 25 MG PO Q6H PRN PRN N AUSEA/VOMITING #10 TABS Prov: Mayelin Tyler A* 01/13/20 TAMSULOSIN ER (FLOMAX) 0.4 MG PO DAILY TAMSULOSIN ER (FLOMAX) 0.4 MG PO DAILY #5 CAPS Prov: 01/15/20 ACETAMINOPHEN/CODEINE (TYLENOL WITH CODE INE #3 300/30 MG) 1 TAB PO Q6H PRN PRN abdominal pain/ flank pain 5 Days #20 TABS Prov: 01/17/20 Reported Medications GABAPENTIN (NEURONTIN) 600 MG PO TID busPIRone (BUSPAR) 10 MG PO TID DULoxetine DR (CYMBALTA) 60 MG PO DAILY TAMSULOSIN ER (FLOMAX) 0.4 MG PO DAILY traZODone (DESYREL) 200 MG PO BEDTIME acetaZOLAMIDE (DIAMOX) 250 MG PO Q8H PNV WITH FE FUMARATE/FA () 1 TAB PO JF Y TAMSULOSIN ER (FLOMAX) 0.4 MG PO DAILY ONDANSETRON ODT (ZOFRAN ODT) 4 MG PO Q6H PRN PRN NAUSEA/VOMITING IBUPROFEN (MOTRIN) 600 MG PO Q8H PRN PRN PAIN Past Medical History: Reports: Urinary tract infection. Additional Medical History nephrolithiasis UTI pyelonephritis sepsis Additional Surgical History ureteral stent Alcohol Use Denies EtOH use Drug Use Denies recreational drugs Smoking status: Smoking status for patients 13 years old or old er: Unknown,if ever smoked Physical Exam Vital Signs Vital Signs First Documented: Result Date Time O2 Delivery Room air 04/24 2312 Pulse Ox 99 04/24 2314 B/P 116/79 04/24 2314 B/P Mean 91.6 04/24 2314 Temp 97.9 04/24 2314 Pulse 148 04/24 2314 Resp 16 04/24 2314 Last Documented: Result Date Time Pulse Ox 99 04/24 2314 B/P 116/79 04/24 2314 B/P Mean 91.6 04/24 2314 Temp 97.9 04/24 2314 Pulse 148 04/24 2314 Resp 16 04/24 2314 O2 Delivery Room air 04/24 2312 Additional PE Eyes Eyes Atraumatic, EOMI Ears/Nose/Throat Ears/Nose/Throat Atraumatic, Airway patent Neurologic Neurologic Oriented X3, No motor deficits Interpretation Diagnostics Lab Results Interpretation Results Laboratory Tests 04/24/202344: [Embedded Image Not Available] Laboratory Tests: 04/25 04/25 04/25 04/24 0149 0045 0003 2344 Chemistry Lactic Acid (0.7 - 2.0 mmol/L) 1.0 2.1 *H Lipase (23 - 300 U/L) 54 Urines Urine Color (Yellow) DARK YELLOW Urine Appearance (Clear) Cloudy H Urine pH (5.0 - 8.0) 5.0 Ur Specific Calhoun (<1.030) 1.030 Urine Protein (Negative mg/dL) 30 (1+) H Urine Glucose (UA) (Negative) Negative Urine Ketones (Negative mg/dL) Trace H Urine Blood (Negative) Negative Urine Nitrite (Negative) Negative Urine Bilirubin (Negative) Negative Urine Urobilinogen (Negative mg/dL) 2.0 H Ur Leukocyte Esterase (Negative) NEGATIVE Urine RBC (<4 - 5 /HPF) 4-5 H Urine WBC (<4 - 5 /HPF) 6-10 H Ur Squamous Epith Cells (0 - 5 (RARE) 6-15 (FEW ) H /HPF) Urine Bacteria (None - Rare /HPF) None Urine Mucus (<Rare /LPF) 4+ H Urine HCG, Qual (NEGATIVE) NEGATIVE 04/24 2344 Chemistry Sodium (137 - 145 mmol/L) 142 Potassium (3.4 - 5.0 mmol/L) 3.6 Chloride (98 - 107 mmol/L) 107 Carbon Dioxide (22 - 30 mmol/L) 22 BUN (7 - 17 mg/dL) 11 Creatinine (0.5 - 1.0 mg/dL) 1.0 Glomerular Filtr Rate (>60) 72 Glucose (74 - 106 mg/dL) 114 H Calcium (8.4 - 10.2 mg/dL) 9.7 Total Bilirubin (0.2 - 1.3 mg/dL) 0.3 Conjugated Bilirubin (0 - 0.3 mg/dL) 0 Unconjugated Bilirubin (0 - 1.1 mg/dL) 0.3 AST (15 - 46 U/L) 51 H ALT (0 - 34 U/L) 20 Total Alk Phosphatase (38 - 126 U/L) 72 Total Protein (6.3 - 8.2 g/dL) 8.3 H Albumin (3.5 - 5.0 g/dL) 4.9 Hematology WBC (5.0 - 12.0 x10 3/uL) 11.7 RBC (4.20 - 5.40 x10 6/uL) 4.28 Hgb (12.0 - 16.0 g/dL) 11.7 L Hct (36.0 - 46.0 %) 36.8 MCV (81 - 99 fL) 86 MCH (27 - 31 pg) 27.3 MCHC (33 - 37 g/dL) 31.8 L RDW (11.5 - 15.5 %) 15.9 H Plt Count (130 - 400 x10 3/uL) 502 H MPV (9.4 - 16.4 fL) 9.8 Neut % (Auto) (43 - 65 %) 62.3 Lymph % (Auto) (20.5 - 45.5 %) 30.0 Whiteside % (Auto) (5.5 - 11.7 %) 6.3 Eos % (Auto) (0.9 - 2.9 %) 0.9 Baso % (Auto) (0.2 - 1.0 %) 0.3 Neut # (Auto) (2.2 - 4.8 x10 3/uL) 7.29 H Lymph # (Auto) (1.3 - 2.9 x10 3/uL) 3.51 H Whiteside # (Auto) (0.3 - 0.8 x10 3/uL) 0.74 Eos # (Auto) (0.0 - 0.2 x10 3/uL) 0.11 Baso # (Auto) (0.0 - 0.1 x10 3/uL) 0.04 Immature Gran % (0.0 - 2.0 %) 0.2 Nucleated RBC % (0 - 1.0 %) 0.0 Microbiology: Date/Time Procedure - Status Source Growth 04/25 0003 Blood Culture - RES BLOOD 04/25 0003 Blood Culture - RES BLOOD Recent Impressions: ULTRASOUND - US RETRO LTD 04/24 2420 Report Impression - Status: SIGNED Entered: 04/25/2020 0019 IMPRESSION: A punctate nonobstructing stone is seen in the l eft kidney. Impression By: [email or web address] - Leonel Delacruz MD Re-Evaluation [facility] Free Text MDM Notes Free Text MDM Notes [address] abd Free Text MDM Notes Free Text MDM Notes 24F with history of multiple kidney stones comes to ED becasue she feels like she is passing a kidney ston e. she is already on keflex and flomax from her PCP. she endorsed morphine did not help her pain and she is allergic to NSAIDS. Pt was pacing around lobby the duration of her stay. Labs unreamarkable,no fever or signs of systemic infection, US showed no obstru cting stone in L kidney, no hydrophephrosis. Pt refused CT abd pelvis. Pt was discahrged home with Tylenol # 3 for pain control and F/u with PCP. Patient Discharge Departure Clinical Impression Clinical Impression Primary Impression: Kidney calculus Disposition Decision Discharge )( Discharged to Home Yes )( Time 0323 )( Date 04/25/20 Discharge/Care Plan Patient Instructions ED Kidney Stone w/ Colic, E D Urine Strainer Referrals PRIMARY CARE: 2-3 Days Discharge Note I have spoken with the patie nt and/or caregivers. I have explained the patient's condition, diagnoses and gwyn atment plan based on the information available to me at this time. I have answered the patient's and/ or caregiver's questions and addressed any concerns. The patient and/or careg martin have as good an understanding of the patient 's diagnosis, condition and treatment plan as can be expected at this point. The vital signs have bee n stable. The patient's condition is stable and appr opriate for discharge from the emergency department. The patient will pursue further outpatient evalu ation with the primary care physician or other designated or consulting phys ician as outlined in the discharge instructions. The patient and/or caregivers are agreeable to this plan of care and follow-up instructions have been exp lained in detail. The patient and/or caregivers have received these instructio ns in written format and have expressed an understanding of the discharge inst ructions. The patient and/or caregivers are aware that any significant change in condition or worsening of symptoms should prompt an immediate return to [facility] or the closest emergency department or a call to 911. Jonas Lambert 04/25/20 0321: HPI- Female General Initial Greet Date/Time 04/24/20 231 Review of Systems Focused Review of Systems Constitutional Denies: Chills, Fever, Lethargy. Ears/Nose/Throat Denies: Earache bilat, Nasal congestion, Sore th roat. GI Denies: Abdominal pain, Diarrhea, Nausea, Vomiti ng. Female Reports: Dysuria. Denies: Fl ank pain, Hematuria, Incontinence, Nocturia, Pelvic pain, , Urinary frequency, Urinary urgen cy, Urination decreased, Urination increased, Vaginal bleeding - abnl, Va ginal discharge. Musculoskeletal Denies: Back pain, Extremity pain. Endocrine Denies: Polyuria, Weight loss. Skin Denies: Diaphoresis, Rash. Neurologic Denies: Change LOC, Dizziness, Focal weakness, H eadache, Numbness, Slurred speech. Physical Exam Vital Signs Review of Vital Signs Reviewed Focused PE General/Const General/Const Awake, Alert, Well appearing Resp/Chest Respiratory/Chest Breath sounds NL, Breath soun ds = bilat, No respiratory distress, No rales, No rhonchi, No wheezing Cardiovascular Cardiovascular Heart rate NL, Regular rhythm, H eart sounds NL, Peripheral circulation NL Abdomen/GI Abdomen/GI Soft, Non-tender, No guarding, No re bound MS Back Back Inspection NL, Non-tender, No CVA tenderne ss Skin Skin Color NL, No rash, Warm, Dry, Turgor NL Genitourinary Female Genitourinary External genitalia NL, No bleeding, No discharge, No cervical motion tend, Os closed, No adnexal mass , No adnexal tenderness, No uterine enlargement, No uterine mass, No lesions or rash Re-Evaluation MDM ED Course Medication(s) Ordered Medication(s) Ordered: Anti-Infective Agents Sig/Berenice Start time Last Medication Dose Route Stop Time Status Admin Ceftriaxone Sodium 1,000 MG X1ED STA 04/24 2316 DC 04/25 Sterile Water 10 ML IV 04/249 0011 Central Nervous System Agents Sig/Berenice Start time Last Medication Dose Route Stop Time Status Admin Acetaminophen/ 1 TAB X1ED STA 04/25 0319 DC Codeine Phosphate PO 04/25 0320 0327 Morphine Sulfate 4 MG X1ED STA 04/24 2316 DC IV 04/24 2317 0010 Electrolytic, Caloric, And Alex Sig/Berenice Start time Last Medication Dose Route Stop Time Status Admin Sodium Chloride 1,000 ML X1ED STA 04/247 DC 04/25 IV 04/24 2317 0008 Gastrointestinal Drugs Sig/Berenice Start time Last Medication Dose Route Stop Time Status Admin Ondansetron HCl 4 MG X1ED STA 04/24 2316 DC IV 04/24 2317 0009 Patient Discharge Departure Vital Signs/Condition Vital Signs First Documented: Result Date Time O2 Delivery Room air 04/24 2312 Pulse Ox 99 04/24 2314 B/P 116/79 04/24 2314 B/P Mean 91.6 04/24 2314 Temp 36.6 04/24 2314 Pulse 148 04/24 2314 Resp 16 04/24 2314 Last Documented: Result Date Time Pulse Ox 99 04/24 2314 B/P 116/79 04/24 2314 B/P Mean 91.6 04/24 2314 Temp 36.6 04/24 2314 Pulse 148 04/24 2314 Resp 16 04/24 2314 O2 Delivery Room air 04/24 2312 All vital signs available at the time of this en try have been reviewed. Discharge/Care Plan (Auto) Prescriptions Current Visit Scripts ACETAMINOPHEN/CODEINE (TYLENOL WITH CODE INE #3 300/30 MG) 1 TAB PO Q4H PRN PRN ACUTE PAIN ACETAMINOPHEN/CODEINE (TYLENOL WITH CODEINE #3 300/30 MG) 1 TAB PO Q4H PRN PRN ACUTE PAIN #10 TABS Supervising Physician Note Resident Saw Pt This patient was seen by a resident. I have pers onally seen the patient, performed the critical or kumari portions o f the service, and participated in the management of the patient. I have review ed and agree with the resident's note, and I have reviewed all labs , ECGs, and imaging studies or reports. I agree with this resident's findings, exam and plan. at 0652 RPT #:[id number] END OF REPORT 2020-04-25 00:37:00-00:00 [facility] ([facility]) EMERGENCY PROVIDER REPORT REPORT#:[id number] REPORT STATUS: Signed DATE:04/25/20 TIME: 36 PATIENT: NATIVIDAD KLINE UNIT #: [id number] ROOM/BED: AGE: 24 SEX: F PCP PHYS: Undefined Provider SERVICE AUTHOR: Johnathan Mauro MD R1 * ALL edits or amendments must be made on the [employer]/computer document * Johnathan Mauro 04/25/2036: HPI- Female Presentation Chief Complaint Flank pain L )( Sudden in Onset? No Free Text HPI Notes Free Text HPI Notes 24-year-old female with history of kidne y stones presents with left flank pain for approximately a week, diagnosed with 3 mm ki dney stone [address], patient reports at 4:00 this afternoon pain became much worse. Patient refusing CT scan and requesting ultrasound instead. Narcotic score 610, patient has 100 prescription s for narcotics listed and 49 prescribers. Review of Systems ROS Statements All systems rev neg except as marked. Complete sys rev neg except as marked. Additional Review of Systems Eyes Denies: Eye pain L, Redness R. Respiratory Denies: Cough, productive, Parox nocturnal dyspn ea. Cardiovascular Denies: Edema, Orthopnea. Hematologic Denies: Bleeding, Bruising. Allergy/Immun Denies: Anaphylaxis, Itching. Psychiatric Denies: Confusion, Insomnia. Past Medical History - Adult Stated Complaint ABD PAIN BLOOD URINE X 1 WEEK, INCREASE 1600 Allergies Coded Allergies: azithromycin (From ZITHROMAX) (Severe, SWELLS ) doxycycline (Severe, THROAT CLOSES 04/24/16) metoclopramide (From REGLAN) (MUSCLE SPASM 02/01) Home Medications Active Scripts FLUCONAZOLE (DIFLUCAN) 150 MG PO ONCE 1 Days #1 TAB Prov: 01/17/20 LEVOFLOXACIN (LEVAQUIN) 750 MG PO DAILY LEVOFLOXACIN (LEVAQUIN) 750 MG PO DAILY #5 TABS Prov: Mayelin Tyler* 01/13/20 ACETAMINOPHEN/CODEINE (TYLENOL WITH CODE INE #3 300/30 MG) 1 TAB PO Q4H PRN PRN ACUTE PAIN ACETAMINOPHEN/CODEINE (TYLENOL WITH CODEINE #3 300/30 MG) 1 TAB PO Q4H PRN PRN ACUTE PAIN #8 TABS Prov: Mayelin Tyler A* 01/13/20 KETOROLAC (TORADOL) 10 MG PO Q6H PRN PRN PAIN KETOROLAC (TORADOL) 10 MG PO Q6H PRN PRN PAIN # 20 TABS Prov: Mayelin Tyler A* 01/13/20 PROMETHAZINE (PHENERGAN) 25 MG PO Q6H PRN PRN NA USEA/VOMITING PROMETHAZINE (PHENERGAN) 25 MG PO Q6H PRN PRN N AUSEA/VOMITING #10 TABS Prov: Mayelin Tyler A* 01/13/20 TAMSULOSIN ER (FLOMAX) 0.4 MG PO DAILY TAMSULOSIN ER (FLOMAX) 0.4 MG PO DAILY #5 CAPS Prov: 01/15/20 ACETAMINOPHEN/CODEINE (TYLENOL WITH CODE INE #3 300/30 MG) 1 TAB PO Q6H PRN PRN abdominal pain/ flank pain 5 Days #20 TABS Prov: 01/17/20 Reported Medications GABAPENTIN (NEURONTIN) 600 MG PO TID busPIRone (BUSPAR) 10 MG PO TID DULoxetine DR (CYMBALTA) 60 MG PO DAILY TAMSULOSIN ER (FLOMAX) 0.4 MG PO DAILY traZODone (DESYREL) 200 MG PO BEDTIME acetaZOLAMIDE (DIAMOX) 250 MG PO Q8H PNV WITH FE FUMARATE/FA () 1 TAB PO JF Y TAMSULOSIN ER (FLOMAX) 0.4 MG PO DAILY ONDANSETRON ODT (ZOFRAN ODT) 4 MG PO Q6H PRN PRN NAUSEA/VOMITING IBUPROFEN (MOTRIN) 600 MG PO Q8H PRN PRN PAIN Past Medical History: Reports: Urinary tract infection. Additional Medical History nephrolithiasis UTI pyelonephritis sepsis Additional Surgical History ureteral stent Alcohol Use Denies EtOH use Drug Use Denies recreational drugs Smoking status: Smoking status for patients 13 years old or old er: Unknown,if ever smoked Physical Exam Vital Signs Vital Signs First Documented: Result Date Time O2 Delivery Room air 04/24 2312 Pulse Ox 99 04/24 2314 B/P 116/79 04/24 2314 B/P Mean 91.6 04/24 2314 Temp 97.9 04/24 2314 Pulse 148 04/24 2314 Resp 16 04/24 2314 Last Documented: Result Date Time Pulse Ox 99 04/24 2314 B/P 116/79 04/24 2314 B/P Mean 91.6 04/24 2314 Temp 97.9 04/24 2314 Pulse 148 04/24 2314 Resp 16 04/24 2314 O2 Delivery Room air 04/24 2312 Additional PE Eyes Eyes Atraumatic, EOMI Ears/Nose/Throat Ears/Nose/Throat Atraumatic, Airway patent Neurologic Neurologic Oriented X3, No motor deficits Interpretation Diagnostics Lab Results Interpretation Results Laboratory Tests 04/24/202344: [Embedded Image Not Available] Laboratory Tests: 04/25 04/25 04/25 04/24 0149 0045 0003 2344 Chemistry Lactic Acid (0.7 - 2.0 mmol/L) 1.0 2.1 *H Lipase (23 - 300 U/L) 54 Urines Urine Color (Yellow) DARK YELLOW Urine Appearance (Clear) Cloudy H Urine pH (5.0 - 8.0) 5.0 Ur Specific Calhoun (<1.030) 1.030 Urine Protein (Negative mg/dL) 30 (1+) H Urine Glucose (UA) (Negative) Negative Urine Ketones (Negative mg/dL) Trace H Urine Blood (Negative) Negative Urine Nitrite (Negative) Negative Urine Bilirubin (Negative) Negative Urine Urobilinogen (Negative mg/dL) 2.0 H Ur Leukocyte Esterase (Negative) NEGATIVE Urine RBC (<4 - 5 /HPF) 4-5 H Urine WBC (<4 - 5 /HPF) 6-10 H Ur Squamous Epith Cells (0 - 5 (RARE) 6-15 (FEW ) H /HPF) Urine Bacteria (None - Rare /HPF) None Urine Mucus (<Rare /LPF) 4+ H Urine HCG, Qual (NEGATIVE) NEGATIVE 04/24 2344 Chemistry Sodium (137 - 145 mmol/L) 142 Potassium (3.4 - 5.0 mmol/L) 3.6 Chloride (98 - 107 mmol/L) 107 Carbon Dioxide (22 - 30 mmol/L) 22 BUN (7 - 17 mg/dL) 11 Creatinine (0.5 - 1.0 mg/dL) 1.0 Glomerular Filtr Rate (>60) 72 Glucose (74 - 106 mg/dL) 114 H Calcium (8.4 - 10.2 mg/dL) 9.7 Total Bilirubin (0.2 - 1.3 mg/dL) 0.3 Conjugated Bilirubin (0 - 0.3 mg/dL) 0 Unconjugated Bilirubin (0 - 1.1 mg/dL) 0.3 AST (15 - 46 U/L) 51 H ALT (0 - 34 U/L) 20 Total Alk Phosphatase (38 - 126 U/L) 72 Total Protein (6.3 - 8.2 g/dL) 8.3 H Albumin (3.5 - 5.0 g/dL) 4.9 Hematology WBC (5.0 - 12.0 x10 3/uL) 11.7 RBC (4.20 - 5.40 x10 6/uL) 4.28 Hgb (12.0 - 16.0 g/dL) 11.7 L Hct (36.0 - 46.0 %) 36.8 MCV (81 - 99 fL) 86 MCH (27 - 31 pg) 27.3 MCHC (33 - 37 g/dL) 31.8 L RDW (11.5 - 15.5 %) 15.9 H Plt Count (130 - 400 x10 3/uL) 502 H MPV (9.4 - 16.4 fL) 9.8 Neut % (Auto) (43 - 65 %) 62.3 Lymph % (Auto) (20.5 - 45.5 %) 30.0 Whiteside % (Auto) (5.5 - 11.7 %) 6.3 Eos % (Auto) (0.9 - 2.9 %) 0.9 Baso % (Auto) (0.2 - 1.0 %) 0.3 Neut # (Auto) (2.2 - 4.8 x10 3/uL) 7.29 H Lymph # (Auto) (1.3 - 2.9 x10 3/uL) 3.51 H Whiteside # (Auto) (0.3 - 0.8 x10 3/uL) 0.74 Eos # (Auto) (0.0 - 0.2 x10 3/uL) 0.11 Baso # (Auto) (0.0 - 0.1 x10 3/uL) 0.04 Immature Gran % (0.0 - 2.0 %) 0.2 Nucleated RBC % (0 - 1.0 %) 0.0 Microbiology: Date/Time Procedure - Status Source Growth 04/25 2 Blood Culture - RES BLOOD 04/25 2 Blood Culture - RES BLOOD Recent Impressions: ULTRASOUND - US RETRO LTD 04/24 2330 Report Impression - Status: SIGNED Entered: 04/25/2020 0019 IMPRESSION: A punctate nonobstructing stone is seen in the l eft kidney. Impression By: [email or web address] - Leonel Delacruz MD Re-Evaluation MDM Free Text MDM Notes Free Text MDM Notes [address] abd Free Text MDM Notes Free Text MDM Notes 24F with history of multiple kidney stones comes to ED becasue she feels like she is passing a kidney ston e. she is already on keflex and flomax from her PCP. she endorsed morphine did not help her pain and she is allergic to NSAIDS. Pt was pacing around lobby the duration of her stay. Labs unreamarkable,no fever or signs of systemic infection, US showed no obstru cting stone in L kidney, no hydrophephrosis. Pt refused CT abd pelvis. Pt was discahrged home with Tylenol # 3 for pain control and F/u with PCP. Patient Discharge Departure Clinical Impression Clinical Impression Primary Impression: Kidney calculus Disposition Decision Discharge )( Discharged to Home Yes )( Time 0323 )( Date 04/25/20 Discharge/Care Plan Patient Instructions ED Kidney Stone w/ Colic, E D Urine Strainer Referrals PRIMARY CARE: 2-3 Days Discharge Note I have spoken with the patie nt and/or caregivers. I have explained the patient's condition, diagnoses and gwyn atment plan based on the information available to me at this time. I have answered the patient's and/ or caregiver's questions and addressed any concerns. The patient and/or careg martin have as good an understanding of the patient 's diagnosis, condition and treatment plan as can be expected at this point. The vital signs have bee n stable. The patient's condition is stable and appr opriate for discharge from the emergency department. The patient will pursue further outpatient evalu ation with the primary care physician or other designated or consulting phys ician as outlined in the discharge instructions. The patient and/or caregivers are agreeable to this plan of care and follow-up instructions have been exp lained in detail. The patient and/or caregivers have received these instructio ns in written format and have expressed an understanding of the discharge inst ructions. The patient and/or caregivers are aware that any significant change in condition or worsening of symptoms should prompt an immediate return to [facility] or the closest emergency department or a call to 911. Jonas Lambert 04/25/20 0321: HPI- Female General Initial Greet Date/Time 04/24/20 2311 Review of Systems Focused Review of Systems Constitutional Denies: Chills, Fever, Lethargy. Ears/Nose/Throat Denies: Earache bilat, Nasal congestion, Sore th roat. GI Denies: Abdominal pain, Diarrhea, Nausea, Vomiti ng. Female Reports: Dysuria. Denies: Fl ank pain, Hematuria, Incontinence, Nocturia, Pelvic pain, , Urinary frequency, Urinary urgen cy, Urination decreased, Urination increased, Vaginal bleeding - abnl, Va ginal discharge. Musculoskeletal Denies: Back pain, Extremity pain. Endocrine Denies: Polyuria, Weight loss. Skin Denies: Diaphoresis, Rash. Neurologic Denies: Change LOC, Dizziness, Focal weakness, H eadache, Numbness, Slurred speech. Physical Exam Vital Signs Review of Vital Signs Reviewed Focused PE General/Const General/Const Awake, Alert, Well appearing Resp/Chest Respiratory/Chest Breath sounds NL, Breath soun ds = bilat, No respiratory distress, No rales, No rhonchi, No wheezing Cardiovascular Cardiovascular Heart rate NL, Regular rhythm, H eart sounds NL, Peripheral circulation NL Abdomen/GI Abdomen/GI Soft, Non-tender, No guarding, No re bound MS Back Back Inspection NL, Non-tender, No CVA tenderne ss Skin Skin Color NL, No rash, Warm, Dry, Turgor NL Genitourinary Female Genitourinary External genitalia NL, No bleeding, No discharge, No cervical motion tend, Os closed, No adnexal mass , No adnexal tenderness, No uterine enlargement, No uterine mass, No lesions or rash Re-Evaluation MDM ED Course Medication(s) Ordered Medication(s) Ordered: Anti-Infective Agents Sig/Berenice Start time Last Medication Dose Route Stop Time Status Admin Ceftriaxone Sodium 1,000 MG X1ED STA 04/24 2316 DC 04/25 Sterile Water 10 ML IV 04/249 0011 Central Nervous System Agents Sig/Berenice Start time Last Medication Dose Route Stop Time Status Admin Acetaminophen/ 1 TAB X1ED STA 04/25 0319 DC Codeine Phosphate PO 04/25 0320 0327 Morphine Sulfate 4 MG X1ED STA 04/24 2316 DC IV 04/24 2317 0010 Electrolytic, Caloric, And Alex Sig/Berenice Start time Last Medication Dose Route Stop Time Status Admin Sodium Chloride 1,000 ML X1ED STA 04/24 2316 DC 04/25 IV 04/24 2317 0008 Gastrointestinal Drugs Sig/Berenice Start time Last Medication Dose Route Stop Time Status Admin Ondansetron HCl 4 MG X1ED STA 04/24 2316 DC IV 04/24 2317 0009 Patient Discharge Departure Vital Signs/Condition Vital Signs First Documented: Result Date Time O2 Delivery Room air 04/24 2312 Pulse Ox 99 04/24 2314 B/P 116/79 04/24 2314 B/P Mean 91.6 04/24 2314 Temp 36.6 04/24 2314 Pulse 148 04/24 2314 Resp 16 04/24 2314 Last Documented: Result Date Time Pulse Ox 99 04/24 2315 B/P 116/79 04/24 231 B/P Mean 91.6 04/24 2314 Temp 36.6 04/24 2314 Pulse 148 04/24 2314 Resp 16 04/24 2314 O2 Delivery Room air 04/24 2312 All vital signs available at the time of this en try have been reviewed. Discharge/Care Plan (Auto) Prescriptions Current Visit Scripts ACETAMINOPHEN/CODEINE (TYLENOL WITH CODE INE #3 300/30 MG) 1 TAB PO Q4H PRN PRN ACUTE PAIN ACETAMINOPHEN/CODEINE (TYLENOL WITH CODEINE #3 300/30 MG) 1 TAB PO Q4H PRN PRN ACUTE PAIN #10 TABS Supervising Physician Note Resident Saw Pt This patient was seen by a resident. I have pers onally seen the patient, performed the critical or kumari portions o f the service, and participated in the management of the patient. I have review ed and agree with the resident's note, and I have reviewed all labs , ECGs, and imaging studies or reports. I agree with this resident's findings, exam and plan. at 0652 Electronically Signed by Jonas Lambert DO on 01/03 at 2006 RPT #:[id number] END OF REPORT 2020-04-24 23:18:00-00:00 [facility] ([facility] EMERGENCY PROVIDER REPORT REPORT#:[id number] REPORT STATUS: Signed DATE:04/24/20 TIME: 2317 PATIENT: NATIVIDAD KLINE UNIT #: [id number] ROOM/BED: AGE: 24 SEX: F PCP PHYS: Undefined Provider SERVICE AUTHOR: Luis Goddard ADMITTING MANAGER * ALL edits or amendments must be made on the [employer]/computer document * Provider in Triage - Adult Provider in Triage Initial Greet Date/Time 04/24/202310 Greet Note I have greeted and performed a focused rapid initial assessment of this patient. A comprehensive ED assessment and evaluation of the patient, analysis of all test results, and completion of the medical deci nneka-making process will be conducted by additional ED providers. MSE Not Complete The medical screening exam i s not complete. Further evaluation and/or treatment is required. The patient will be re-directed to the emergency department. Free Text PIT Notes Free Text PIT Notes 24-year-old female with history of kidne y stones presents with left flank pain for approximately a week, diagnosed with 3 mm ki dney stone [address], patient reports at 4:00 this afternoon pain became much worse. Patient refusing CT scan and requesting ultrasound instead. Narcotic score 610, patient has 100 prescription s for narcotics listed and 49 prescribers. PMH-Provider in Triage Stated Complaint ABD PAIN BLOOD URINE X 1 WEEK, INCREASE 1600 Allergies Coded Allergies: azithromycin (From ZITHROMAX) (Severe, SWELLS ) doxycycline (Severe, THROAT CLOSES 04/24/16) metoclopramide (From REGLAN) (MUSCLE SPASM 02/01) Home Medications Active Scripts FLUCONAZOLE (DIFLUCAN) 150 MG PO ONCE 1 Days #1 TAB Prov: 01/17/20 LEVOFLOXACIN (LEVAQUIN) 750 MG PO DAILY LEVOFLOXACIN (LEVAQUIN) 750 MG PO DAILY #5 TABS Prov: Mayelin Tyler* 01/13/20 ACETAMINOPHEN/CODEINE (TYLENOL WITH CODE INE #3 300/30 MG) 1 TAB PO Q4H PRN PRN ACUTE PAIN ACETAMINOPHEN/CODEINE (TYLENOL WITH CODEINE #3 300/30 MG) 1 TAB PO Q4H PRN PRN ACUTE PAIN #8 TABS Prov: Richard Tylerrahel Granados* 01/13/20 KETOROLAC (TORADOL) 10 MG PO Q6H PRN PRN PAIN KETOROLAC (TORADOL) 10 MG PO Q6H PRN PRN PAIN # 20 TABS Prov: Mayelin Tyler* 01/13/20 PROMETHAZINE (PHENERGAN) 25 MG PO Q6H PRN PRN NA USEA/VOMITING PROMETHAZINE (PHENERGAN) 25 MG PO Q6H PRN PRN NAUSEA/VOMITING #10 TABS Prov: NayeliMayelin A* 01/13/20 TAMSULOSIN ER (FLOMAX) 0.4 MG PO DAILY TAMSULOSIN ER (FLOMAX) 0.4 MG PO DAILY #5 CAPS Prov: 01/15/20 ACETAMINOPHEN/CODEINE (TYLENOL WITH CODE INE #3 300/30 MG) 1 TAB PO Q6H PRN PRN abdominal pain/ flank pain 5 Days #20 TABS Prov: 01/17/20 Reported Medications GABAPENTIN (NEURONTIN) 600 MG PO TID busPIRone (BUSPAR) 10 MG PO TID DULoxetine DR (CYMBALTA) 60 MG PO DAILY TAMSULOSIN ER (FLOMAX) 0.4 MG PO DAILY traZODone (DESYREL) 200 MG PO BEDTIME acetaZOLAMIDE (DIAMOX) 250 MG PO Q8H PNV WITH FE FUMARATE/FA () 1 TAB PO JF Y TAMSULOSIN ER (FLOMAX) 0.4 MG PO DAILY ONDANSETRON ODT (ZOFRAN ODT) 4 MG PO Q6H PRN PRN NAUSEA/VOMITING IBUPROFEN (MOTRIN) 600 MG PO Q8H PRN PRN PAIN Past Medical History: Reports: Urinary tract infection. Additional Medical History nephrolithiasis UTI pyelonephritis sepsis Additional Surgical History ureteral stent Alcohol Use Denies EtOH use Drug Use Denies recreational drugs Smoking status: Smoking status for patients 13 years old or old er: Unknown,if ever smoked Electronically Signed by Luis Goddard NP on at 0214 RPT #:[id number] END OF REPORT 2020-04-24 23:18:00-00:00 [facility] ([facility] EMERGENCY PROVIDER REPORT REPORT#:[id number] REPORT STATUS: Signed DATE:04/24/20 TIME: 2317 PATIENT: NATIVIDAD KLINE UNIT #: [id number] ROOM/BED: AGE: 24 SEX: F PCP PHYS: Undefined Provider SERVICE AUTHOR: Luis Goddard ADMITTING MANAGER * ALL edits or amendments must be made on the [employer]/computer document * Provider in Triage - Adult Provider in Triage Initial Greet Date/Time 04/24/202310 Greet Note I have greeted and performed a focused rapid initial assessment of this patient. A comprehensive ED assessment and evaluation of the patient, analysis of all test results, and completion of the medical deci nneka-making process will be conducted by additional ED providers. MSE Not Complete The medical screening exam i s not complete. Further evaluation and/or treatment is required. The patient will be re-directed to the emergency department. Free Text PIT Notes Free Text PIT Notes 24-year-old female with history of kidne y stones presents with left flank pain for approximately a week, diagnosed with 3 mm ki dney stone [address], patient reports at 4:00 this afternoon pain became much worse. Patient refusing CT scan and requesting ultrasound instead. Narcotic score 610, patient has 100 prescription s for narcotics listed and 49 prescribers. PMH-Provider in Triage Stated Complaint ABD PAIN BLOOD URINE X 1 WEEK, INCREASE 1600 Allergies Coded Allergies: azithromycin (From ZITHROMAX) (Severe, SWELLS ) doxycycline (Severe, THROAT CLOSES 04/24/16) metoclopramide (From REGLAN) (MUSCLE SPASM 02/01) Home Medications Active Scripts FLUCONAZOLE (DIFLUCAN) 150 MG PO ONCE 1 Days #1 TAB Prov: 01/17/20 LEVOFLOXACIN (LEVAQUIN) 750 MG PO DAILY LEVOFLOXACIN (LEVAQUIN) 750 MG PO DAILY #5 TABS Prov: Mayelin Tyler A* 01/13/20 ACETAMINOPHEN/CODEINE (TYLENOL WITH CODE INE #3 300/30 MG) 1 TAB PO Q4H PRN PRN ACUTE PAIN ACETAMINOPHEN/CODEINE (TYLENOL WITH CODEINE #3 300/30 MG) 1 TAB PO Q4H PRN PRN ACUTE PAIN #8 TABS Prov: Nayeli,Mayelin A* 01/13/20 KETOROLAC (TORADOL) 10 MG PO Q6H PRN PRN PAIN KETOROLAC (TORADOL) 10 MG PO Q6H PRN PRN PAIN # 20 TABS Prov: Mayelin Tyler A* 01/13/20 PROMETHAZINE (PHENERGAN) 25 MG PO Q6H PRN PRN NA USEA/VOMITING PROMETHAZINE (PHENERGAN) 25 MG PO Q6H PRN PRN N AUSEA/VOMITING #10 TABS Prov: Mayelin Tyler A* 01/13/20 TAMSULOSIN ER (FLOMAX) 0.4 MG PO DAILY TAMSULOSIN ER (FLOMAX) 0.4 MG PO DAILY #5 CAPS Prov: 01/15/20 ACETAMINOPHEN/CODEINE (TYLENOL WITH CODE INE #3 300/30 MG) 1 TAB PO Q6H PRN PRN abdominal pain/ flank pain 5 Days #20 TABS Prov: 01/17/20 Reported Medications GABAPENTIN (NEURONTIN) 600 MG PO TID busPIRone (BUSPAR) 10 MG PO TID DULoxetine DR (CYMBALTA) 60 MG PO DAILY TAMSULOSIN ER (FLOMAX) 0.4 MG PO DAILY traZODone (DESYREL) 200 MG PO BEDTIME acetaZOLAMIDE (DIAMOX) 250 MG PO Q8H PNV WITH FE FUMARATE/FA () 1 TAB PO JF Y TAMSULOSIN ER (FLOMAX) 0.4 MG PO DAILY ONDANSETRON ODT (ZOFRAN ODT) 4 MG PO Q6H PRN PRN NAUSEA/VOMITING IBUPROFEN (MOTRIN) 600 MG PO Q8H PRN PRN PAIN Past Medical History: Reports: Urinary tract infection. Additional Medical History nephrolithiasis UTI pyelonephritis sepsis Additional Surgical History ureteral stent Alcohol Use Denies EtOH use Drug Use Denies recreational drugs Smoking status: Smoking status for patients 13 years old or old er: Unknown,if ever smoked Electronically Signed by Luis Goddard NP on at 0214 Electronically Signed by Jonas Lambert DO on 01/03 at 5953 RPT #:[id number] END OF REPORT 2020-01-18 21:01:00-00:00 [id number] [facility] [id number] [place] [id number] PATIENT NAME: NATIVIDAD KLINE ADMIT D ATE: 01/18/20 ACCOUNT NO: [id number] ROOM NO: AGE: 24 REPORT TYPE: eELECTROCARDIOGRAM SEX: F ADMITTING PHYSICIAN: ATTENDING PHYSICIAN: Order: [id number] Test Reason : Test Date/Time Stamp: ThuJan 18 2020 21:01:49 Blood Pressure : / mmHG Vent. Rate : 120 BPM Atrial Rate : 120 BPM P-R Int : 122 ms QRS Dur : 084 ms QT Int : 326 ms P-R-T Axes : 040 040 015 degree s QTc Int : 460 ms Sinus tachycardia Possible Left atrial enlargement Borderline ECG No previous ECGs available Confirmed by ELIANA CASTILLO MD ([id number]) on 03/20/2019 10:15:29 PM Referred By: Self Referred Confirmed by:ELIANA THORPE MD at 2215 PATIENT NAME: NATIVIDAD KLINE 2020-01-18 19:56:00-00:00 [facility] ([facility]) EMERGENCY PROVIDER REPORT REPORT#:[id number] REPORT STATUS: Signed DATE:01/18/20 TIME:1955 PATIENT: NATIVIDAD KLINE UNIT #: [id number] ROOM/BED: : 95 AGE: 24 SEX: F PCP PHYS: No Primar y or Family Physician SERVICE AUTHOR: Anita Kruse MD * ALL edits or amendments must be made on the el LEYIO/prollie document * HPI- Female General Initial Greet Date/Time 01/18/201924 Presentation Chief Complaint Abdominal pain, Flank pain L )( Sudden in Onset? No Free Text HPI Notes Free Text HPI Notes 24yo WF with PMH of kidney stone p/w lef t flank pain x 5 days. Associated with tachycardia, as well as nausea and vomiting when pain is most severe. Pain rated 8 out of 10 on pain scale. Of note, patien carrie recently diagnosed with UTI secondary to pyelonephritis at [facility]. Zahra monsalve was to be admitted for sepsis treatment; however, zeina farias left AGAINST MEDICAL ADVICE due to childcare concerns. Sent home on Levaquin 750 mg d aily. Patient here to rule out sepsis. Review of Systems ROS Statements All systems rev neg except as marked. Focused Review of Systems Constitutional Denies: Chills, Fever, Lethargy. Ears/Nose/Throat Denies: Earache bilat, Nasal congestion, Sore th roat. GI Denies: Abdominal pain, Diarrhea, Nausea, Vomiti ng. Female Reports: Flank pain, Pelvic pain. Musculoskeletal Denies: Back pain, Extremity pain. Endocrine Denies: Polyuria, Weight loss. Skin Denies: Diaphoresis, Rash. Neurologic Denies: Change LOC, Dizziness, Focal weakness, H eadache, Numbness, Slurred speech. Past Medical History - Adult Stated Complaint SEPSIS, KIDNEY STONE Allergies Coded Allergies: azithromycin (From ZITHROMAX) (Severe, SWELLS ) doxycycline (Severe, THROAT CLOSES 04/24/16) Home Medications Active Scripts LEVOFLOXACIN (LEVAQUIN) 750 MG PO DAILY LEVOFLOXACIN (LEVAQUIN) 750 MG PO DAILY #5 TABS Prov: Mayelin Tyler* 01/12/20 ACETAMINOPHEN/CODEINE (TYLENOL WITH CODE INE #3 300/30 MG) 1 TAB PO Q4H PRN PRN ACUTE PAIN ACETAMINOPHEN/CODEINE (TYLENOL WITH CODEINE #3 300/30 MG) 1 TAB PO Q4H PRN PRN ACUTE PAIN #8 TABS Prov: Mayelin Tyler* 1030/20 KETOROLAC (TORADOL) 10 MG PO Q6H PRN PRN PAIN KETOROLAC (TORADOL) 10 MG PO Q6H PRN PRN PAIN # 20 TABS Prov: Mayelin Tyler* 1030/20 PROMETHAZINE (PHENERGAN) 25 MG PO Q6H PRN PRN NA USEA/VOMITING PROMETHAZINE (PHENERGAN) 25 MG PO Q6H PRN PRN N AUSEA/VOMITING #10 TABS Prov: Mayelin Tyler* 01/13/20 TAMSULOSIN ER (FLOMAX) 0.4 MG PO DAILY TAMSULOSIN ER (FLOMAX) 0.4 MG PO DAILY #5 CAPS Prov: 01/15/20 Reported Medications acetaZOLAMIDE (DIAMOX) 250 MG PO Q8H PNV WITH FE FUMARATE/FA () 1 TAB PO JF Y Calculated suicide risk level: No risk Past Medical History: Reports: Urinary tract infection. Alcohol Use Denies EtOH use Drug Use Denies recreational drugs Smoking status for patients 13 years old or olde r: Current every day smoker Physical Exam Vital Signs Vital Signs First Documented: Result Date Time Pulse Ox 99 01/18 1920 B/P 135/59 01/17 192 B/P Mean 84 01/18 1920 O2 Delivery Room air 01/18 1920 Temp 99.8 01/18 1920 Pulse 149 01/18 1920 Resp 16 01/18 1920 Last Documented: Result Date Time Pulse Ox 99 01/18 1920 B/P 135/59 01/17 192 B/P Mean 84 01/18 1920 O2 Delivery Room air 01/18 1920 Temp 99.8 01/18 1920 Pulse 149 01/18 1920 Resp 16 01/18 1920 Review of Vital Signs Reviewed, Vital signs norm al Focused PE General/Const General/Const Awake, Alert, Well appearing Resp/Chest Respiratory/Chest Breath sounds NL, Breath soun ds = bilat, No respiratory distress, No rales, No rhonchi, No wheezing Cardiovascular Cardiovascular Heart rate NL, Regular rhythm, Heart sounds NL, Peripheral circulation NL Abdomen/GI Abdomen/GI Soft, Non-tender, No guarding, No re bound MS Back Back Inspection NL, Non-tender, No CVA tenderne ss Skin Skin Color NL, No rash, Warm, Dry, Turgor NL Genitourinary Female Genitourinary External genitalia NL, No bleeding, No discharge, No cervical motion tend, Os closed, No adnexal mass , No adnexal tenderness, No uterine enlargement, No uterine mass, No lesions or rash Interpretation Diagnostics Lab Results Interpretation Results Laboratory Tests 01/18/201940: [Embedded Image Not Available] 01/18/201927: [Embedded Image Not Available] Laboratory Tests: 01/17 Chemistry Lactic Acid (0.4 - 2.0 mmol/L) 1.8 Serology SARS-CoV-2 Ag (Rapid) (Negative) NEGATIVE Urines Urine Color (YEL/STRAW discript) YELLOW Urine Appearance (CLEAR discript) CLEAR Urine pH (5.0 - 7.0 pH UNITS) 6.0 Ur Specific Calhoun (1.005 - 1.030 SG) 1.025 Urine Protein (NEG mg/dL) NEGATIVE Urine Glucose (UA) (NEG mg/dL) NEGATIVE Urine Ketones (NEG mg/dL) NEGATIVE Urine Blood (NEG mg/DL) TRACE H Urine Nitrite (NEG SCREEN) NEGATIVE Urine Bilirubin (NEG mg/dL) NEGATIVE Urine Urobilinogen (<2.0 mg/dL) 0.2 Ur Leukocyte Esterase (NEGATIVE Leuk/mcL) 1+ H Urine RBC (0 - 3 #RBC/HPF) NONE SEEN Urine WBC (0 - 3 #WBC/HPF) 1-3 Ur Squamous Epith Cells (NONE /HPF) NONE SEEN Urine Bacteria (NONE - TRACE /HPF) NONE SEEN Urine Culture Screen (Culture CHK Criteria) NO, WBC<10 01/17 Chemistry Sodium (134 - 147 mmol/L) 141 Potassium (3.4 - 5.0 mmol/L) 3.9 Chloride (100 - 108 mmol/L) 110 H Carbon Dioxide (21 - 32 mmol/L) 25 Anion Gap (4.0 - 15.0 GAP calc) 6.0 BUN (7 - 18 MG/DL) 9 Creatinine (0.6 - 1.0 MG/DL) 0.8 Glomerular Filtr Rate (>60 estGFR) >=60 max est imate Glucose (70 - 110 MG/DL) 108 Calcium (8.5 - 10.1 MG/DL) 9.1 Total Bilirubin (0.2 - 1.2 MG/DL) 0.10 L Direct Bilirubin (0.00 - 0.30 MG/DL) < 0.10 Indirect Bilirubin (0.2 - 1.2 MG/DL) 0.00 L AST (15 - 37 Unit/L) 23 ALT (12 - 78 Unit/L) 33 Total Alk Phosphatase (45 - 117 Unit/L) 96 Troponin I (0.000 - 0.045 NG/ML) < 0.015 Total Protein (6.4 - 8.2 G/DL) 8.0 Albumin (3.4 - 5.0 G/DL) 3.7 Hematology WBC (3.5 - 11.0 K/mm3) 11.9 H RBC (4.70 - 6.10 M/mm3) 3.93 L Hgb (10.4 - 14.9 G/DL) 11.4 Hct (31.5 - 44.1 %) 34.9 MCV (84.5 - 98.6 Fl) 88.8 MCH (27.0 - 34.2 pg) 29.0 MCHC (31.5 - 34.0 G/DL) 32.7 RDW (11.5 - 14.5 SD) 13.7 Plt Count (150 - 450 K/mm3) 463 H MPV (7.0 - 10.5 fL) 9.60 Neut % (Auto) (40 - 76 %) 59.5 Lymph % (Auto) (20.5 - 51.1 %) 30.2 Whiteside % (Auto) (1.7 - 9.3 %) 6.5 Eos % (Auto) (0.0 - 6.0 %) 3.0 Baso % (Auto) (0.0 - 2.0 %) 0.5 Neut # (Auto) (1.8 - 7.6 K/mm3) 7.1 Lymph # (Auto) (0.6 - 3.2 K/mm3) 3.6 H Whiteside # (Auto) (0.3 - 1.1 K/mm3) 0.8 Eos # (Auto) (0.0 - 0.4 K/mm3) 0.4 Baso # (Auto) (0.0 - 0.1 K/mm3) 0.1 Abs Immat Gran (auto) (0.00 - 0.03 x10 3/uL) 0. 03 Add Manual Diff (CRITERIA DIFF/SCN) NO Immature Gran % (0.0 - 5.0 %) 0.3 Nucleated RBC % (0.0 - 1.0 /100WBC%) 0.0 Microbiology: Date/Time Procedure - Status Source Growth 01/17 1945 Blood Culture - RECD BLOOD 01/18 1940 Blood Culture - RECD BLOOD Recent Impressions: RADIOLOGY - XR CHEST 1 V 01/17 2022 Report Impression - Status: SIGNED Entered: 01/18/20202047 Impression: 1. Stable chest x-ray without evidence for acute infiltrates or effusions. Impression By: Polo Evans M.D. Lab Imaging Statement Laboratory radiographic studies reviewed and con sidered in the medical decision-making. ECG #1 Interpretation Text/Dict Note Time: 2000 Rate: 120 Sinus tachycardia, normal axis, no ST elevation Re-Evaluation MDM Free Text MDM Notes Free Text MDM Notes A/P: 24yo WF with PMH as above p/w left flank pa in; concerning for sepsis secondary to UTI/pyelonephritis 1. Labs 2. UA 3. IV fluids 4. IV antibiotics 5. Reassess ADDENDUM Time: 2144 Pt re-assessed; symptoms improved. Results of wo rk-up d/w Pt; voiced understanding. Ok for DC home with PCP follow-up . ED Course Medication(s) Ordered Medication(s) Ordered: Anti-Infective Agents Sig/Berenice Start time Last Medication Dose Route Stop Time Status Admin Levofloxacin/Dextrose 100 ML X1ED ONE 01/17 193 0 DC 01/17 IV 01/17 Central Nervous System Agents Sig/Berenice Start time Last Medication Dose Route Stop Time Status Admin Hydromorphone HCl 0.5 MG X1ED STA 01/17 2114 DC 01/17 IM 01/17 Morphine Sulfate 2 MG X1ED STA 01/17 2039 DC IV 01/17 Ketorolac 30 MG X1ED STA 01/17 2003 DC 01/17 Tromethamine IV 01/17 Electrolytic, Caloric, And Alex Sig/Berenice Start time Last Medication Dose Route Stop Time Status Admin Sodium Chloride 2,100 ML X1ED STA 01/17 1926 DC 01/17 IV 01/17 Gastrointestinal Drugs Sig/Berenice Start time Last Medication Dose Route Stop Time Status Admin Ondansetron HCl 4 MG X1ED STA 01/17 2003 DC IV 01/17 Patient Discharge Departure Vital Signs/Condition Vital Signs First Documented: Result Date Time Pulse Ox 99 01/17 1920 B/P 135/59 01/18 1920 B/P Mean 84 01/18 1920 O2 Delivery Room air 01/18 1920 Temp 99.8 01/18 1920 Pulse 149 01/18 1920 Resp 16 01/18 1920 Last Documented: Result Date Time Pulse Ox 99 01/18 1920 B/P 135/59 01/18 1920 B/P Mean 84 01/18 1920 O2 Delivery Room air 01/18 1920 Temp 99.8 01/18 1920 Pulse 149 01/18 1920 Resp 16 01/18 1920 All vital signs available at the time of this en try have been reviewed. Clinical Impression Clinical Impression Primary Impression: UTI (urinary tract infection ) Secondary Impressions: Drug-seeking behavior, Le ft flank pain, Ureteral colic Disposition Decision Discharge )( Discharged to Home Yes )( Time 2141 )( Date 01/18/20 Discharge/Care Plan Counseled Regarding Diagnosi s, Lab results, Imaging studies, Need for follow-up, When to return to ED Referrals No Primary or Family Physician (PCP/Family) Discharge Note I have spoken with the patie nt and/or caregivers. I have explained the patient's condition, diagnoses and gwyn atment plan based on the information available to me at this time. I have answered the patient's and/ or caregiver's questions and addressed any concerns. The patient and/or careg martin have as good an understanding of the patient 's diagnosis, condition and treatment plan as can be expected at this point. The vital signs have bee n stable. The patient's condition is stable and appr opriate for discharge from the emergency department. The patient will pursue further outpatient evalu ation with the primary care physician or other designated or consulting phys ician as outlined in the discharge instructions. The patient and/or caregivers are agreeable to this plan of care and follow-up instructions have been exp lained in detail. The patient and/or caregivers have received these instructio ns in written format and have expressed an understanding of the discharge inst ructions. The patient and/or caregivers are aware that any significant change in condition or worsening of symptoms should prompt an immediate return to [facility] or the closest emergency department or a call to 911. at 2151 RPT #: [id number] END OF REPORT 2020-01-17 10:05:00-00:00 [facility] ([facility]) Discharge Summary REPORT#:[id number] REPORT STATUS: Signed DATE:01/17/20 TIME: 1005 PATIENT: NATIVIDAD KLINE UNIT #: [id number] ROOM/BED: [address] : 95 AGE: 24 SEX: F ATTEND: Bradly Sebastian MD ADM AUTHOR: Damien Chang DO R1 * ALL edits or amendments must be made on the el [employer]/computer document * PCP PCP PCP: PCP: No Primary or Family Physician General Information Problem List/A P: 1. Nephrolithiasis 2. Elevated lactic acid level 3. Yeast infection of the vagina 4. SIRS (systemic inflammatory response syndrom e) Date of admission: Observation Start Date: Date of admission: 01/15/20 Discharge date: 01/17/20 Hospital course: Natividad Kline is a 24yoF w / h/o nephrolithiasis, UTI, pyelonephritis, presents due to nephrolithiasis. She describes severe fla nk and abdominal pain and dysuria. She was seen 2 days ago and diagnosed w / sepsis 2/2 UTI given leukocytosis, but left to arrange day ca re for her children because she is out of town visiting family. pt presently c/o severe left flank and abdominal pain w / associated nausea and dysuria. Pt states that she has had 13 kidney stones over the past year, most of them have been small and passed s pontaneously. She has a urologist at home in [place] and is on tamsulosin. Pt has been treated previo usly w/ keflex, cefdinir, and was recently started on levaquin for UTI . She states that she has made dietary changes to prevent kidney stones. initial vitals: afebrile, HR 141, RR 16, BP 139/ 72, 99% sat on room air lactic acid was elevated to 2.6 and resolved to 1.6 after 1L LR bolus and ceftriaxone. 24yoF w/ h/o numerous kidney stones and previous UTI's, pyelonephritis presents due to flank pain and dysuria. Sepsis r/o -ceftriaxone in ED -pt has been on abx for several weeks for possib le UTI -present UA: 20 RBC, 30 WBC, many squamous cells , 10/30 UA similar -present urine cx: normal skin ronald -afebrile, WBC WNL, hemodynamically stable -tachycardia likely 2/2 dehydration, pain -elevated lactic acid, resolved w/ IVF -blood cx neg 24h -CTAP 01/13/20: "2 punctate 1 mm nonobstructing left renal calculi" -doubt present pyelonephritis -Left CVA tenderness is likely referred pain -will continue previous course of levofloxacin u dru d/c Nephrolithiasis -non obstructing stones on CTAP -IVNS 125ml/h -tamsulosin -norco, morphine pain control -passed 1 stone, will send for composition marcio sis -pt counseled on low sodium diet Neuro/Psych -cont home buspar, duloxetine, gabapentin, trazo done possible vaginal candidiasis -likely 2/2 abx -fluconazole 150mg -will d/c w/ another dose to be taken 7 days after finishing levaquin course if yeast infection still present DVT ppx: lovenox dispo: home Med Rec Med Rec Discharge meds: Continue taking these medications: GABAPENTIN (NEURONTIN) 600 MG TAB 600 MILLIGRAM ORAL THREE TIMES A DAY. busPIRone (BUSPAR) 10 MG TAB 10 MILLIGRAM ORAL THREE TIMES A DAY. DULoxetine DR (CYMBALTA) 60 MG CAP.DR 60 MILLIGRAM ORAL DAILY. TAMSULOSIN ER (FLOMAX) 0.4 MG CAP.SR.24H 0.4 MILLIGRAM ORAL DAILY. traZODone (DESYREL) 100 MG TAB 200 MILLIGRAM ORAL BEDTIME. Start taking the following new medications: FLUCONAZOLE (DIFLUCAN) 150 MG TAB 150 MILLIGRAM ORAL ONE TIME ONLY. Days = 1 Qty = 1 No Refills ACETAMINOPHEN/CODEINE (TYLENOL WITH CODEINE #3 3 00/30 MG) 300 MG-30 MG TAB 1 TABLET ORAL EVERY 6 HOURS NEEDED. as neede d for abdominal pain/ flank pain Days = 5 Qty = 20 No Refills Objective VS/I O Last Documented: Result Date Time Pulse Ox 98 01/16 746 B/P 122/61 01/16 746 B/P Mean 81.7 01/16 746 Pulse 84 01/16 746 Resp 18 01/16 746 Temp 36.6 01/16 0443 O2 Delivery Room air 01/14 1431 Patient Weight Weight (lb): Weight (oz): Weight (kg): 122.727 General appearance: obese, awake, conversational , mental status normal, no respiratory distress Head/Eyes: atraumatic, EOMI, normocephalic, PERR LA ENT: normal dentition, moist mucosal membranes Neck: full range of motion, non-tender, no bruit /NL carotids Cardiovascular: regular rate rhythm, nor mal heart sounds, no gallop, no murmur Respiratory: clear to auscultation, no distress, symmetric expansion GI: soft, non-tender, no distention Extremities: moves all, no e prasanna-all extremities, normal range of motion, normal motor function Musculoskeletal: full range of motion, normal in spection, no muscle spasm, obesity left CVA tenderness Neuro/PRACTICE ADVISOR: alert, oriented X 3, normal speech, n o motor deficits Skin: dry, intact, no gross abnormalities Psychiatry: normal affect, normal judgment/insig ht, normal mood Results Findings/Data: Laboratory Tests: 01/16 0545 Chemistry Sodium (137 - 145 mmol/L) 138 Potassium (3.4 - 5.0 mmol/L) 4.1 Chloride (98 - 107 mmol/L) 112 H Carbon Dioxide (22 - 30 mmol/L) 20 L BUN (7 - 17 mg/dL) 11 Creatinine (0.5 - 1.0 mg/dL) 0.6 Glomerular Filtr Rate (>60) 131 Glucose (74 - 106 mg/dL) 74 Calcium (8.4 - 10.2 mg/dL) 8.7 Hematology WBC (5.0 - 12.0 x10 3/uL) 7.2 RBC (4.20 - 5.40 x10 6/uL) 3.64 L Hgb (12.0 - 16.0 g/dL) 10.3 L Hct (36.0 - 46.0 %) 37.1 MCV (81 - 99 fL) 102 H MCH (27 - 31 pg) 28.3 MCHC (33 - 37 g/dL) 27.8 L RDW (11.5 - 15.5 %) 13.8 Plt Count (130 - 400 x10 3/uL) 346 MPV (9.4 - 16.4 fL) 9.5 Neut % (Auto) (43 - 65 %) 48.9 Lymph % (Auto) (20.5 - 45.5 %) 34.4 Whiteside % (Auto) (5.5 - 11.7 %) 8.2 Eos % (Auto) (0.9 - 2.9 %) 7.5 H Baso % (Auto) (0.2 - 1.0 %) 0.7 Neut # (Auto) (2.2 - 4.8 x10 3/uL) 3.51 Lymph # (Auto) (1.3 - 2.9 x10 3/uL) 2.47 Whiteside # (Auto) (0.3 - 0.8 x10 3/uL) 0.59 Eos # (Auto) (0.0 - 0.2 x10 3/uL) 0.54 H Baso # (Auto) (0.0 - 0.1 x10 3/uL) 0.05 Immature Gran % (0.0 - 2.0 %) 0.3 Nucleated RBC % (0 - 1.0 %) 0.0 Discharge Instructions Discharge Instructions Additional Discharge Routines: PCP Follow-Up ([facility] urologist) Quality Current Medications Current medication review: I attest that the foregoing medication list in t medical record is true, accurate, and complete to the best of my knowled ge. Attestations Attestation needed: teaching physician at 1153 RPT #:[id number] END OF REPORT 2020-01-17 10:05:00-00:00 [facility] ([facility]) Discharge Summary REPORT#:[id number] REPORT STATUS: Signed DATE:01/17/20 TIME: 1005 PATIENT: NATIVIDAD KLINE UNIT #: [id number] ROOM/BED: [address] : 95 AGE: 24 SEX: F ATTEND: Bradly Sebastian MD ADM AUTHOR: Damien Chang DO R1 * ALL edits or amendments must be made on the el [employer]/computer document * Damien Chang 01/17/20 1005: PCP PCP PCP: PCP: No Primary or Family Physician General Information Problem List/A P: 1. Nephrolithiasis 2. Elevated lactic acid level 3. Yeast infection of the vagina 4. SIRS (systemic inflammatory response syndrom e) Date of admission: Observation Start Date: Date of admission: 01/15/20 Discharge date: 01/17/20 Hospital course: Natividad Kline is a 24yoF w / h/o nephrolithiasis, UTI, pyelonephritis, presents due to nephrolithiasis. She describes severe fla nk and abdominal pain and dysuria. She was seen 2 days ago and diagnosed w / sepsis 2/2 UTI given leukocytosis, but left to arrange day ca re for her children because she is out of town visiting family. pt presently c/o severe left flank and abdominal pain w / associated nausea and dysuria. Pt states that she has had 13 kidney stones over the past year, most of them have been small and passed s pontaneously. She has a urologist at home in [place] and is on tamsulosin. Pt has been treated previo usly w/ keflex, cefdinir, and was recently started on levaquin for UTI . She states that she has made dietary changes to prevent kidney stones. initial vitals: afebrile, HR 141, RR 16, BP 139/ 72, 99% sat on room air lactic acid was elevated to 2.6 and resolved to 1.6 after 1L LR bolus and ceftriaxone. 24yoF w/ h/o numerous kidney stones and previous UTI's, pyelonephritis presents due to flank pain and dysuria. Sepsis r/o -ceftriaxone in ED -pt has been on abx for several weeks for possib le UTI -present UA: 20 RBC, 30 WBC, many squamous cells , 01/12 UA similar -present urine cx: normal skin ronald -afebrile, WBC WNL, hemodynamically stable -tachycardia likely 2/2 dehydration, pain -elevated lactic acid, resolved w/ IVF -blood cx neg 24h -CTAP 01/13/20: "2 punctate 1 mm nonobstructing left renal calculi" -doubt present pyelonephritis -Left CVA tenderness is likely referred pain -will continue previous course of levofloxacin u dru d/c Nephrolithiasis -non obstructing stones on CTAP -IVNS 125ml/h -tamsulosin -norco, morphine pain control -passed 1 stone, will send for composition marcio sis -pt counseled on low sodium diet Neuro/Psych -cont home buspar, duloxetine, gabapentin, trazo done possible vaginal candidiasis -likely 2/2 abx -fluconazole 150mg -will d/c w/ another dose to be taken 7 days after finishing levaquin course if yeast infection still present DVT ppx: lovenox dispo: home Med Rec Med Rec Discharge meds: Continue taking these medications: GABAPENTIN (NEURONTIN) 600 MG TAB 600 MILLIGRAM ORAL THREE TIMES A DAY. busPIRone (BUSPAR) 10 MG TAB 10 MILLIGRAM ORAL THREE TIMES A DAY. DULoxetine DR (CYMBALTA) 60 MG CAP.DR 60 MILLIGRAM ORAL DAILY. TAMSULOSIN ER (FLOMAX) 0.4 MG CAP.SR.24H 0.4 MILLIGRAM ORAL DAILY. traZODone (DESYREL) 100 MG TAB 200 MILLIGRAM ORAL BEDTIME. Start taking the following new medications: FLUCONAZOLE (DIFLUCAN) 150 MG TAB 150 MILLIGRAM ORAL ONE TIME ONLY. Days = 1 Qty = 1 No Refills ACETAMINOPHEN/CODEINE (TYLENOL WITH CODEINE #3 3 00/30 MG) 300 MG-30 MG TAB 1 TABLET ORAL EVERY 6 HOURS NEEDED. as neede d for abdominal pain/ flank pain Days = 5 Qty = 20 No Refills Objective VS/I O Last Documented: Result Date Time Pulse Ox 98 01/16 746 B/P 122/61 01/16 746 B/P Mean 81.7 01/16 746 Pulse 84 01/16 746 Resp 18 01/16 746 Temp 36.6 01/16 0443 O2 Delivery Room air 01/14 1431 Patient Weight Weight (lb): Weight (oz): Weight (kg): 122.727 General appearance: obese, awake, conversational , mental status normal, no respiratory distress Head/Eyes: atraumatic, EOMI, normocephalic, PERR LA ENT: normal dentition, moist mucosal membranes Neck: full range of motion, non-tender, no bruit /NL carotids Cardiovascular: regular rate rhythm, nor mal heart sounds, no gallop, no murmur Respiratory: clear to auscultation, no distress, symmetric expansion GI: soft, non-tender, no distention Extremities: moves all, no e prasanna-all extremities, normal range of motion, normal motor function Musculoskeletal: full range of motion, normal in spection, no muscle spasm, obesity left CVA tenderness Neuro/PRACTICE ADVISOR: alert, oriented X 3, normal speech, n o motor deficits Skin: dry, intact, no gross abnormalities Psychiatry: normal affect, normal judgment/insig ht, normal mood Results Findings/Data: Laboratory Tests: 01/16 0545 Chemistry Sodium (137 - 145 mmol/L) 138 Potassium (3.4 - 5.0 mmol/L) 4.1 Chloride (98 - 107 mmol/L) 112 H Carbon Dioxide (22 - 30 mmol/L) 20 L BUN (7 - 17 mg/dL) 11 Creatinine (0.5 - 1.0 mg/dL) 0.6 Glomerular Filtr Rate (>60) 131 Glucose (74 - 106 mg/dL) 74 Calcium (8.4 - 10.2 mg/dL) 8.7 Hematology WBC (5.0 - 12.0 x10 3/uL) 7.2 RBC (4.20 - 5.40 x10 6/uL) 3.64 L Hgb (12.0 - 16.0 g/dL) 10.3 L Hct (36.0 - 46.0 %) 37.1 MCV (81 - 99 fL) 102 H MCH (27 - 31 pg) 28.3 MCHC (33 - 37 g/dL) 27.8 L RDW (11.5 - 15.5 %) 13.8 Plt Count (130 - 400 x10 3/uL) 346 MPV (9.4 - 16.4 fL) 9.5 Neut % (Auto) (43 - 65 %) 48.9 Lymph % (Auto) (20.5 - 45.5 %) 34.4 Whiteside % (Auto) (5.5 - 11.7 %) 8.2 Eos % (Auto) (0.9 - 2.9 %) 7.5 H Baso % (Auto) (0.2 - 1.0 %) 0.7 Neut # (Auto) (2.2 - 4.8 x10 3/uL) 3.51 Lymph # (Auto) (1.3 - 2.9 x10 3/uL) 2.47 Whiteside # (Auto) (0.3 - 0.8 x10 3/uL) 0.59 Eos # (Auto) (0.0 - 0.2 x10 3/uL) 0.54 H Baso # (Auto) (0.0 - 0.1 x10 3/uL) 0.05 Immature Gran % (0.0 - 2.0 %) 0.3 Nucleated RBC % (0 - 1.0 %) 0.0 Discharge Instructions Discharge Instructions Additional Discharge Routines: PCP Follow-Up ([facility] urologist) Quality Current Medications Current medication review: I attest that the foregoing medication list in t he medical record is true, accurate, and complete to the best of my knowled ge. Attestations Attestation needed: teaching physician Pablo Chamorro. 01/17/20 1507: Attestations Teaching Physician Attestation 1st visit w/o resident: I have seen and evaluated the patient [facility]. Chang. I agree with the findings and plan of care as outlined in the discharge melo mmary note. Electronically Signed by Damien Chang DO R1 on 1 03/18/19 at 1153 at 1508 RPT #:[id number] END OF REPORT 2020-01-15 17:30:00-00:00 [facility] ([facility]) History Physical - Adult REPORT#:[id number] REPORT STATUS: Signed DATE:01/15/20 TIME: 1730 PATIENT: NATIVIDAD KLINE UNIT #: [id number] ROOM/BED: [address] : 95 AGE: 24 SEX: F ATTEND: Bradly Sebastian MD ADM AUTHOR: Damien Chang DO R1 * ALL edits or amendments must be made on the el [employer]/computer document * History of Present Illness HPI Chief complaint: kidney stone PCP: PCP: No Primary or Family Physician HPI: Natividad Kline is a 24yoF w / h/o nephrolithiasis, UTI, pyelonephritis, presents due to nephrolithiasis. She describes severe fla nk and abdominal pain and dysuria. She was seen 2 days ago and diagnosed w / sepsis 2/2 UTI given leukocytosis, but left to arrange day ca re for her children because she is out of town visiting family. pt presently c/o severe left flank and abdominal pain w / associated nausea and dysuria. Pt states that she has had 13 kidney stones over the past year, most of them have been small and passed s pontaneously. She has a urologist at home in [place] and is on tamsulosin. Pt has been treated previo usly w/ keflex, cefdinir, and was recently started on levaquin for UTI . She states that she has made dietary changes to prevent kidney stones. initial vitals: afebrile, HR 141, RR 16, BP 139/ 72, 99% sat on room air lactic acid was elevated to 2.6 and resolved to 1.6 after 1L LR bolus and ceftriaxone. History Additional medical history: nephrolithiasis UTI pyelonephritis sepsis Additional surgical history: ureteral stent Alcohol use: Denies EtOH use Drug use: Denies recreational drugs Smoking status for patients 13 years old or olde r: Unknown,if ever smoked Medication/Allergy-Vaccine Hx Allergies: Coded Allergies: azithromycin (From ZITHROMAX) (Intermediate, HIV ES, RASH 01/15/20) doxycycline (Intermediate, HIVES, RASH 01/15/20) metoclopramide (From REGLAN) (MUSCLE SPASM 01/14) Ambulatory status: Independent Review of Systems : Reports: dysuria, flank pain. ROS comments: all 14 systems reviewed and neg except as above and in HPI Physical Exam VS/I O Vital Signs: Date Time Temp Pulse Resp B/P B/P Pulse O2 O2 Flow FiO2 Mean Ox Delivery Rate 01/14 1612 97 01/14 1611 120 22 110/59 76 97 01/14 1431 Room air 01/14 1426 36.8 141 16 139/72 94.8 99 Patient Weight Weight (lb): Weight (oz): Weight (kg): 122.727 General appearance: obese, awake, conversational , mental status normal, no respiratory distress, uncomfortable Head/Eyes: atraumatic, EOMI, normocephalic, PERR LA ENT: moist mucosal membranes, normal dentition Neck: full range of motion, non-tender, no bruit /NL carotids Cardiovascular: normal capillary refill, regular rate rhythm, normal heart sounds, no gallop, no murmur Respiratory: clear to auscultation, no distress, symmetric expansion Abdomen/GI: active bowel kalpana nds, soft, no distention, tender left flank and LLQ Extremities: moves all, no e prasanna-all extremities, normal range of motion, normal sensory, normal motor function Musculoskeletal: CVA tendern ess (left), full range of motion, normal inspection, no muscle spasm Neuro/PRACTICE ADVISOR: alert, oriented X 3, normal speech, n o motor deficits, no sensory deficits, CNII-XII grossly intact Skin: warm, dry, intact, no gross abnormalities Psychiatry: normal affect, normal judgment/insig ht, normal mood Results Findings/Data: Laboratory Tests: 01/14 01/14 01/14 1434 1439 1439 Chemistry Sodium (137 - 145 mmol/L) 140 Potassium (3.4 - 5.0 mmol/L) 3.9 Chloride (98 - 107 mmol/L) 110 H Carbon Dioxide (22 - 30 mmol/L) 17 L BUN (7 - 17 mg/dL) 14 Creatinine (0.5 - 1.0 mg/dL) 0.8 Glomerular Filtr Rate (>60) 94 Glucose (74 - 106 mg/dL) 106 Lactic Acid (0.7 - 2.0 mmol/L) 2.6 *H Calcium (8.4 - 10.2 mg/dL) 9.6 Total Bilirubin (0.2 - 1.3 mg/dL) 0.5 Conjugated Bilirubin (0 - 0.3 mg/dL) 0 Unconjugated Bilirubin (0 - 1.1 mg/dL) 0.5 AST (15 - 46 U/L) 40 ALT (0 - 34 U/L) 27 Total Alk Phosphatase (38 - 126 U/L) 93 Total Protein (6.3 - 8.2 g/dL) 7.6 Albumin (3.5 - 5.0 g/dL) 4.3 Lipase (23 - 300 U/L) 47 Coagulation INR 1.1 PTT (Gurpreet) (23.4 - 37.0 SECONDS) 31.8 PT Patient/Control Mix (9.2 - 12.1 SECONDS) 11. 7 Hematology WBC (5.0 - 12.0 x10 3/uL) 10.5 RBC (4.20 - 5.40 x10 6/uL) 4.06 L Hgb (12.0 - 16.0 g/dL) 11.4 L Hct (36.0 - 46.0 %) 36.2 MCV (81 - 99 fL) 89 MCH (27 - 31 pg) 28.1 MCHC (33 - 37 g/dL) 31.5 L RDW (11.5 - 15.5 %) 13.5 Plt Count (130 - 400 x10 3/uL) 454 H MPV (9.4 - 16.4 fL) 9.8 Neut % (Auto) (43 - 65 %) 64.0 Lymph % (Auto) (20.5 - 45.5 %) 25.1 Whiteside % (Auto) (5.5 - 11.7 %) 5.0 L Eos % (Auto) (0.9 - 2.9 %) 4.9 H Baso % (Auto) (0.2 - 1.0 %) 0.6 Neut # (Auto) (2.2 - 4.8 x10 3/uL) 6.73 H Lymph # (Auto) (1.3 - 2.9 x10 3/uL) 2.64 Whiteside # (Auto) (0.3 - 0.8 x10 3/uL) 0.53 Eos # (Auto) (0.0 - 0.2 x10 3/uL) 0.51 H Baso # (Auto) (0.0 - 0.1 x10 3/uL) 0.06 Immature Gran % (0.0 - 2.0 %) 0.4 Nucleated RBC % (0 - 1.0 %) 0.0 Urines Urine Color (Yellow) Yellow Urine Appearance (Clear) Cloudy H Urine pH (5.0 - 8.0) 5.0 Ur Specific Calhoun (<1.030) 1.034 H Urine Protein (Negative mg/dL) 100 (2+) H Urine Glucose (UA) (Negative) Negative Urine Ketones (Negative mg/dL) Negative Urine Blood (Negative) Negative Urine Nitrite (Negative) Negative Urine Bilirubin (Negative) Negative Urine Urobilinogen (Negative mg/dL) Negative Ur Leukocyte Esterase (Negative) 2+ H Urine RBC (<4 - 5 /HPF) 11-20 H Urine WBC (<4 - 5 /HPF) 21-30 H Ur Squamous Epith Cells (0 - 5 (RARE) /HPF) >25 (MANY) H Urine Bacteria (None - Rare /HPF) Rare Urine Mucus (<Rare /LPF) 4+ H 01/14 1613 Chemistry Lactic Acid (0.7 - 2.0 mmol/L) 2.1 *H Serology SARS-CoV-2 Rap RNA(RT-PCR) (NEGATIVE) Negative Radiology data: Recent Impressions: RADIOLOGY - XR CHEST 1 V 01/14 1445 Report Impression - Status: SIGNED Entered: 01/15/2020 1507 IMPRESSION: 1. Interstitial thickening suggest bronchitis an d/or viral pneumonitis. Impression By: Jaydon Vallejo M.D. Diagnosis, Assessment Plan Problem List/A P: 1. Nephrolithiasis 2. Elevated lactic acid level Free Text DxA P Notes Free Text DxA P Notes: 24yoF w/ h/o numerous kidney stones and multiple UTI presents due to nephrolithiasis. Sepsis r/o -ceftriaxone in ED -doubt UTI given UA w/out nitrites, bacteria -WBC, RBC on UA -afebrile, WBC WNL -tachycardia likely 2/2 dehydration, pain -elevated lactic acid, resolved w/ IVF -nonobstructing stones on CTAP Nephrolithiasis -non obstructing stones on CTAP -IVNS 125ml/h -tamsulosin -norco, morphine pain control Neuro/Psych -cont home buspar, duloxetine, gabapentin, trazo done DVT ppx: lovenox Quality Current Medications Current medication review: I attest that the [facility] is true, accurate, and complete to the best of my knowled ge. Attestations Attestation needed: teaching physician Electronically Signed by Damien Chang DO R1 on 1 03/16/19 at 1950 RPT #:[id number] END OF REPORT 2020-01-15 17:30:00-00:00 [facility] History Physical - Adult REPORT#:[id number] REPORT STATUS: Signed DATE:01/15/20 TIME: 1729 PATIENT: NATIVIDAD KLINE UNIT #: [id number] ROOM/BED: [address] : 95 AGE: 24 SEX: F ATTEND: Bradly Sebastian MD ADM AUTHOR: Damien Chang DO R1 * ALL edits or amendments must be made on the el [employer]/computer document * Damien Chang 01/15/20 1730: History of Present Illness HPI Chief complaint: kidney stone PCP: PCP: No Primary or Family Physician HPI: Natividad Kline is a 24yoF w / h/o nephrolithiasis, UTI, pyelonephritis, presents due to nephrolithiasis. She describes severe fla nk and abdominal pain and dysuria. She was seen 2 days ago and diagnosed w / sepsis 2/2 UTI given leukocytosis, but left to arrange day ca re for her children because she is out of town visiting family. pt presently c/o severe left flank and abdominal pain w / associated nausea and dysuria. Pt states that she has had 13 kidney stones over the past year, most of them have been small and passed s pontaneously. She has a urologist at home in [place] and is on tamsulosin. Pt has been treated previo usly w/ keflex, cefdinir, and was recently started on levaquin for UTI . She states that she has made dietary changes to prevent kidney stones. initial vitals: afebrile, HR 141, RR 16, BP 139/ 72, 99% sat on room air lactic acid was elevated to 2.6 and resolved to 1.6 after 1L LR bolus and ceftriaxone. History Additional medical history: nephrolithiasis UTI pyelonephritis sepsis Additional surgical history: ureteral stent Alcohol use: Denies EtOH use Drug use: Denies recreational drugs Smoking status for patients 13 years old or olde r: Unknown,if ever smoked Medication/Allergy-Vaccine Hx Allergies: Coded Allergies: azithromycin (From ZITHROMAX) (Intermediate, HIV ES, RASH 01/15/20) doxycycline (Intermediate, HIVES, RASH 01/15/20) metoclopramide (From REGLAN) (MUSCLE SPASM 01/14) Ambulatory status: Independent Review of Systems : Reports: dysuria, flank pain. ROS comments: all 14 systems reviewed and neg except as above and in HPI Physical Exam VS/I O Vital Signs: Date Time Temp Pulse Resp B/P B/P Pulse O2 O2 Flow FiO2 Mean Ox Delivery Rate 01/14 1612 97 01/14 1611 120 22 110/59 76 97 01/14 1431 Room air 01/14 1426 36.8 141 16 139/72 94.8 99 Patient Weight Weight (lb): Weight (oz): Weight (kg): 122.727 General appearance: obese, awake, conversational , mental status normal, no respiratory distress, uncomfortable Head/Eyes: atraumatic, EOMI, normocephalic, PERR LA ENT: moist mucosal membranes, normal dentition Neck: full range of motion, non-tender, no bruit /NL carotids Cardiovascular: normal capillary refill, regular rate rhythm, normal heart sounds, no gallop, no murmur Respiratory: clear to auscultation, no distress, symmetric expansion Abdomen/GI: active bowel kalpana nds, soft, no distention, tender left flank and LLQ Extremities: moves all, no e prasanna-all extremities, normal range of motion, normal sensory, normal motor function Musculoskeletal: CVA tendern ess (left), full range of motion, normal inspection, no muscle spasm Neuro/PRACTICE ADVISOR: alert, oriented X 3, normal speech, n o motor deficits, no sensory deficits, CNII-XII grossly intact Skin: warm, dry, intact, no gross abnormalities Psychiatry: normal affect, normal judgment/insig ht, normal mood Results Findings/Data: Laboratory Tests: 01/14 01/14 01/14 1434 1439 1439 Chemistry Sodium (137 - 145 mmol/L) 140 Potassium (3.4 - 5.0 mmol/L) 3.9 Chloride (98 - 107 mmol/L) 110 H Carbon Dioxide (22 - 30 mmol/L) 17 L BUN (7 - 17 mg/dL) 14 Creatinine (0.5 - 1.0 mg/dL) 0.8 Glomerular Filtr Rate (>60) 94 Glucose (74 - 106 mg/dL) 106 Lactic Acid (0.7 - 2.0 mmol/L) 2.6 *H Calcium (8.4 - 10.2 mg/dL) 9.6 Total Bilirubin (0.2 - 1.3 mg/dL) 0.5 Conjugated Bilirubin (0 - 0.3 mg/dL) 0 Unconjugated Bilirubin (0 - 1.1 mg/dL) 0.5 AST (15 - 46 U/L) 40 ALT (0 - 34 U/L) 27 Total Alk Phosphatase (38 - 126 U/L) 93 Total Protein (6.3 - 8.2 g/dL) 7.6 Albumin (3.5 - 5.0 g/dL) 4.3 Lipase (23 - 300 U/L) 47 Coagulation INR 1.1 PTT (Gurpreet) (23.4 - 37.0 SECONDS) 31.8 PT Patient/Control Mix (9.2 - 12.1 SECONDS) 11. 7 Hematology WBC (5.0 - 12.0 x10 3/uL) 10.5 RBC (4.20 - 5.40 x10 6/uL) 4.06 L Hgb (12.0 - 16.0 g/dL) 11.4 L Hct (36.0 - 46.0 %) 36.2 MCV (81 - 99 fL) 89 MCH (27 - 31 pg) 28.1 MCHC (33 - 37 g/dL) 31.5 L RDW (11.5 - 15.5 %) 13.5 Plt Count (130 - 400 x10 3/uL) 454 H MPV (9.4 - 16.4 fL) 9.8 Neut % (Auto) (43 - 65 %) 64.0 Lymph % (Auto) (20.5 - 45.5 %) 25.1 Whiteside % (Auto) (5.5 - 11.7 %) 5.0 L Eos % (Auto) (0.9 - 2.9 %) 4.9 H Baso % (Auto) (0.2 - 1.0 %) 0.6 Neut # (Auto) (2.2 - 4.8 x10 3/uL) 6.73 H Lymph # (Auto) (1.3 - 2.9 x10 3/uL) 2.64 Whiteside # (Auto) (0.3 - 0.8 x10 3/uL) 0.53 Eos # (Auto) (0.0 - 0.2 x10 3/uL) 0.51 H Baso # (Auto) (0.0 - 0.1 x10 3/uL) 0.06 Immature Gran % (0.0 - 2.0 %) 0.4 Nucleated RBC % (0 - 1.0 %) 0.0 Urines Urine Color (Yellow) Yellow Urine Appearance (Clear) Cloudy H Urine pH (5.0 - 8.0) 5.0 Ur Specific Calhoun (<1.030) 1.034 H Urine Protein (Negative mg/dL) 100 (2+) H Urine Glucose (UA) (Negative) Negative Urine Ketones (Negative mg/dL) Negative Urine Blood (Negative) Negative Urine Nitrite (Negative) Negative Urine Bilirubin (Negative) Negative Urine Urobilinogen (Negative mg/dL) Negative Ur Leukocyte Esterase (Negative) 2+ H Urine RBC (<4 - 5 /HPF) 11-20 H Urine WBC (<4 - 5 /HPF) 21-30 H Ur Squamous Epith Cells (0 - 5 (RARE) /HPF) >25 (MANY) H Urine Bacteria (None - Rare /HPF) Rare Urine Mucus (<Rare /LPF) 4+ H 01/14 1613 Chemistry Lactic Acid (0.7 - 2.0 mmol/L) 2.1 *H Serology SARS-CoV-2 Rap RNA(RT-PCR) (NEGATIVE) Negative Radiology data: Recent Impressions: RADIOLOGY - XR CHEST 1 V 01/14 1445 Report Impression - Status: SIGNED Entered: 01/15/2020 1507 IMPRESSION: 1. Interstitial thickening suggest bronchitis an d/or viral pneumonitis. Impression By: Jaydon Vallejo M.D. Diagnosis, Assessment Plan Problem List/A P: 1. Nephrolithiasis 2. Elevated lactic acid level Free Text DxA P Notes Free Text DxA P Notes: 24yoF w/ h/o numerous kidney stones and multiple UTI presents due to nephrolithiasis. Sepsis r/o -ceftriaxone in ED -doubt UTI given UA w/out nitrites, bacteria -WBC, RBC on UA -afebrile, WBC WNL -tachycardia likely 2/2 dehydration, pain -elevated lactic acid, resolved w/ IVF -nonobstructing stones on CTAP Nephrolithiasis -non obstructing stones on CTAP -IVNS 125ml/h -tamsulosin -norco, morphine pain control Neuro/Psych -cont home buspar, duloxetine, gabapentin, trazo done DVT ppx: lovenox Quality Current Medications Current medication review: I attest that the foregoing medication list in [facility] is true, accurate, and complete to the best of my knowled ge. Attestations Attestation needed: teaching physician Bradly Sebastian 01/15/202021: Attestations Physician Attestation Agree w/findings plan: I saw and examined the patient with resident frank stewart I agree with resident note and findings at 1950 RPT #:[id number] END OF REPORT 2020-01-15 17:30:00-00:00 [facility] ([facility]) History Physical - Adult REPORT#:[id number] REPORT STATUS: Signed DATE:01/15/20 TIME: 1729 PATIENT: NATIVIDAD KLINE UNIT #: [id number] [address] AGE: 24 SEX: F ATTEND: Bradly Sebastian MD ADM AUTHOR: BernardoDamien DO R1 * ALL edits or amendments must be made on the [employer]/computer document * Damien Chang 01/15/20 1730: History of Present Illness HPI Chief complaint: kidney stone PCP: PCP: No Primary or Family Physician HPI: Natividad Kline is a 24yoF w / h/o nephrolithiasis, UTI, pyelonephritis, presents due to nephrolithiasis. She describes severe fla nk and abdominal pain and dysuria. She was seen 2 days ago and diagnosed w / sepsis 2/2 UTI given leukocytosis, but left to arrange day ca re for her children because she is out of town visiting family. pt presently c/o severe left flank and abdominal pain w / associated nausea and dysuria. Pt states that she has had 13 kidney stones over the past year, most of them have been small and passed s pontaneously. She has a urologist at home in [place] and is on tamsulosin. Pt has been treated previo usly w/ keflex, cefdinir, and was recently started on levaquin for UTI . She states that she has made dietary changes to prevent kidney stones. initial vitals: afebrile, HR 141, RR 16, BP 139/ 72, 99% sat on room air lactic acid was elevated to 2.6 and resolved to 1.6 after 1L LR bolus and ceftriaxone. History Additional medical history: nephrolithiasis UTI pyelonephritis sepsis Additional surgical history: ureteral stent Alcohol use: Denies EtOH use Drug use: Denies recreational drugs Smoking status for patients 13 years old or olde r: Unknown,if ever smoked Medication/Allergy-Vaccine Hx Allergies: Coded Allergies: azithromycin (From ZITHROMAX) (Intermediate, HIV ES, RASH 01/15/20) doxycycline (Intermediate, HIVES, RASH 01/15/20) metoclopramide (From REGLAN) (MUSCLE SPASM 01/14) Ambulatory status: Independent Review of Systems : Reports: dysuria, flank pain. ROS comments: all 14 systems reviewed and neg except as above and in HPI Physical Exam VS/I O Vital Signs: Date Time Temp Pulse Resp B/P B/P Pulse O2 O2 F low FiO2 Mean Ox Delivery Rate 01/14 1612 97 01/14 1611 120 22 110/59 76 97 01/14 1431 Room air 01/14 1426 36.8 141 16 139/72 94.8 99 Patient Weight Weight (lb): Weight (oz): Weight (kg): 122.727 General appearance: obese, awake, conversational , mental status normal, no respiratory distress, uncomfortable Head/Eyes: atraumatic, EOMI, normocephalic, PERR LA ENT: moist mucosal membranes, normal dentition Neck: full range of motion, non-tender, no bruit /NL carotids Cardiovascular: normal capillary refill, regular rate rhythm, normal heart sounds, no gallop, no murmur Respiratory: clear to auscultation, no distress, symmetric expansion Abdomen/GI: active bowel kalpana nds, soft, no distention, tender left flank and LLQ Extremities: moves all, no e prasanna-all extremities, normal range of motion, normal sensory, normal motor function Musculoskeletal: CVA tendern ess (left), full range of motion, normal inspection, no muscle spasm Neuro/PRACTICE ADVISOR: alert, oriented X 3, normal speech, n o motor deficits, no sensory deficits, CNII-XII grossly intact Skin: warm, dry, intact, no gross abnormalities Psychiatry: normal affect, normal judgment/insig ht, normal mood Results Findings/Data: Laboratory Tests: 01/14 01/14 01/14 1434 1439 1439 Chemistry Sodium (137 - 145 mmol/L) 140 Potassium (3.4 - 5.0 mmol/L) 3.9 Chloride (98 - 107 mmol/L) 110 H Carbon Dioxide (22 - 30 mmol/L) 17 L BUN (7 - 17 mg/dL) 14 Creatinine (0.5 - 1.0 mg/dL) 0.8 Glomerular Filtr Rate (>60) 94 Glucose (74 - 106 mg/dL) 106 Lactic Acid (0.7 - 2.0 mmol/L) 2.6 *H Calcium (8.4 - 10.2 mg/dL) 9.6 Total Bilirubin (0.2 - 1.3 mg/dL) 0.5 Conjugated Bilirubin (0 - 0.3 mg/dL) 0 Unconjugated Bilirubin (0 - 1.1 mg/dL) 0.5 AST (15 - 46 U/L) 40 ALT (0 - 34 U/L) 27 Total Alk Phosphatase (38 - 126 U/L) 93 Total Protein (6.3 - 8.2 g/dL) 7.6 Albumin (3.5 - 5.0 g/dL) 4.3 Lipase (23 - 300 U/L) 47 Coagulation INR 1.1 PTT (Aiken) (23.4 - 37.0 SECONDS) 31.8 PT Patient/Control Mix (9.2 - 12.1 SECONDS) 11. 7 Hematology WBC (5.0 - 12.0 x10 3/uL) 10.5 RBC (4.20 - 5.40 x10 6/uL) 4.06 L Hgb (12.0 - 16.0 g/dL) 11.4 L Hct (36.0 - 46.0 %) 36.2 MCV (81 - 99 fL) 89 MCH (27 - 31 pg) 28.1 MCHC (33 - 37 g/dL) 31.5 L RDW (11.5 - 15.5 %) 13.5 Plt Count (130 - 400 x10 3/uL) 454 H MPV (9.4 - 16.4 fL) 9.8 Neut % (Auto) (43 - 65 %) 64.0 Lymph % (Auto) (20.5 - 45.5 %) 25.1 Whiteside % (Auto) (5.5 - 11.7 %) 5.0 L Eos % (Auto) (0.9 - 2.9 %) 4.9 H Baso % (Auto) (0.2 - 1.0 %) 0.6 Neut # (Auto) (2.2 - 4.8 x10 3/uL) 6.73 H Lymph # (Auto) (1.3 - 2.9 x10 3/uL) 2.64 Whiteside # (Auto) (0.3 - 0.8 x10 3/uL) 0.53 Eos # (Auto) (0.0 - 0.2 x10 3/uL) 0.51 H Baso # (Auto) (0.0 - 0.1 x10 3/uL) 0.06 Immature Gran % (0.0 - 2.0 %) 0.4 Nucleated RBC % (0 - 1.0 %) 0.0 Urines Urine Color (Yellow) Yellow Urine Appearance (Clear) Cloudy H Urine pH (5.0 - 8.0) 5.0 Ur Specific Calhoun (<1.030) 1.034 H Urine Protein (Negative mg/dL) 100 (2+) H Urine Glucose (UA) (Negative) Negative Urine Ketones (Negative mg/dL) Negative Urine Blood (Negative) Negative Urine Nitrite (Negative) Negative Urine Bilirubin (Negative) Negative Urine Urobilinogen (Negative mg/dL) Negative Ur Leukocyte Esterase (Negative) 2+ H Urine RBC (<4 - 5 /HPF) 11-20 H Urine WBC (<4 - 5 /HPF) 21-30 H Ur Squamous Epith Cells (0 - 5 (RARE) /HPF) >25 (MANY) H Urine Bacteria (None - Rare /HPF) Rare Urine Mucus (<Rare /LPF) 4+ H 01/14 1613 Chemistry Lactic Acid (0.7 - 2.0 mmol/L) 2.1 *H Serology SARS-CoV-2 Rap RNA(RT-PCR) (NEGATIVE) Negative Radiology data: Recent Impressions: RADIOLOGY - XR CHEST 1 V 01/14 1445 Report Impression - Status: SIGNED Entered: 01/15/2020 7027 IMPRESSION: 1. Interstitial thickening suggest bronchitis an d/or viral pneumonitis. Impression By: Jaydon Vallejo M.D. Diagnosis, Assessment Plan Problem List/A P: 1. Nephrolithiasis 2. Elevated lactic acid level Free Text DxA P Notes Free Text DxA P Notes: 24yoF w/ h/o numerous kidney stones and multiple UTI presents due to nephrolithiasis. Sepsis r/o -ceftriaxone in ED -doubt UTI given UA w/out nitrites, bacteria -WBC, RBC on UA -afebrile, WBC WNL -tachycardia likely 2/2 dehydration, pain -elevated lactic acid, resolved w/ IVF -nonobstructing stones on CTAP Nephrolithiasis -non obstructing stones on CTAP -IVNS 125ml/h -tamsulosin -norco, morphine pain control Neuro/Psych -cont home buspar, duloxetine, gabapentin, trazo done DVT ppx: lovenox Quality Current Medications Current medication review: I attest that the foregoing medication list in t he medical record is true, accurate, and complete to the best of my knowled ge. Attestations Attestation needed: teaching physician Bradly Sebastian 01/15/202021: Attestations Physician Attestation Agree w/findings plan: I saw and examined the patient with resident frank stewart I agree with resident note and findings Electronically Signed by Damien Chang DO R1 on 1 03/16/19 at 1950 Electronically Signed by Bradly Sebastian MD on at 2021 RPT #:[id number] END OF REPORT 2020-01-15 14:30:00-00:00 [facility] ([facility]) EMERGENCY PROVIDER REPORT REPORT#:[id number] REPORT STATUS: Signed DATE:01/15/20 TIME: 1430 PATIENT: NATIVIDAD KLINE UNIT #: [id number] ROOM/BED: [address] AGE: 24 SEX: F PCP PHYS: No Primary or Family P hysician SERVICE AUTHOR: Mason Schofield * ALL edits or amendments must be made on the [employer]/computer document * HPI- Female General Confirmed Patient Yes Initial Greet Date/Time 01/15/20 1424 Presentation Chief Complaint Flank pain L Hx Obtained From Patient )( Sudden in Onset? Yes Onset Occurred 1 month ago, worsened over last 2 days Symptom Duration Since onset, Constant Progression since Onset Constant Context of Onset Spontaneous Caused by No trauma by history Location Flank L Quality Aching, Painful Radiation LLQ. Severity: Onset Severe Severity: Current Severe Associated with Reports: Abdominal pain, Chi lls, Nausea, UTI symptoms, Vomiting. Denies: Fever. Associated Other Pt denies other symptoms Exacerbated by Movement, Urination Relieved by Nothing Free Text HPI Notes Free Text HPI Notes Patient is from [place] who came to [place] visit her mom this weekend. The patient has a history of chr onic kidney stones and states that she has had some left flank pain for about a month when she was d iagnosed with a kidney stone. She was seen here last night due to acut e exacerbation of left flank pain with dysuria, nausea and vomiting x2 days. 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 Patient states she went home with pain medication and antibiotics but the pain has wors ened. Review of Systems ROS Statements All systems rev neg except as marked. Free Text ROS Notes Free Text ROS Notes Focused Review of Systems Constitutional Reports: Chills, malaise Denies: Fever Respiratory Denies: Cough, non-productive, Cough, pr oductive, Pleuritic pain, Shortness of breath, Wheezing. Cardiovascular Denies: Chest pain, Palpitations. GI Reports: Nausea, vomiting. Denies: Abdominal pain, Bloody/tarry stool, Cons tipation, Diarrhea. Reports: Flank pain, dysuria, urinary frequency/ urgency. Denies: Hematuria, urination decreased, Urinatio n increased. Musculoskeletal Denies: Myalgia, Neck pain. Past Medical History - Adult Stated Complaint KIDNEY PAIN, DX WITH KIDNEY STO NE LAST NIGHT Allergies Coded Allergies: azithromycin (From ZITHROMAX) (Intermediate, HIV ES, RASH 01/15/20) doxycycline (Intermediate, HIVES, RASH 01/15/20) Review of Nursing Notes Triage notes reviewed Alcohol Use Denies EtOH use Drug Use Denies recreational drugs Smoking status for patients 13 years old or olde r: Unknown,if ever smoked Ambulatory Status Independent Physical Exam Vital Signs Vital Signs First Documented: Result Date Time Pulse Ox 99 01/14 1426 B/P 139/72 01/14 1426 B/P Mean 94.8 01/14 1426 Temp 98.2 01/14 1426 Pulse 141 01/14 1426 Resp 16 01/14 1426 O2 Delivery Room air 01/14 1431 Last Documented: Result Date Time Pulse Ox 97 01/14 1612 B/P 110/59 01/14 1611 B/P Mean 76 01/14 1611 Pulse 120 01/14 1611 Resp 22 01/14 1611 O2 Delivery Room air 01/14 1431 Temp 98.2 01/14 1426 Review of Vital Signs Reviewed, Vital signs abno rmal (tachycardia) Focused PE General/Const General/Const Awake, Alert Distress/Hydration Distress severe. Resp/Chest Respiratory/Chest Breath sounds NL, Breath soun ds = bilat, No respiratory distress Cardiovascular Cardiovascular Regular rhythm, Heart sounds NL Heart Rate/Rhythm Tachycardia. Abdomen/GI Abdomen/GI Soft, Non-tender, No guarding, No re bound, BS normoactive, No distention MS Back Back Inspection NL, Full range of motion Flank/Spine/Paraspinal Flank tender R (mild), Flank tender L (moderate ). Genitourinary General Exam deferred Free Text PE Notes Free Text PE Notes Focused PE MS Head Atraumatic, Normocephalic Eyes PERRL, EOMI Ears/Nose/Throat Airway patent, Mucous membranes moist, Pharynx NL Skin Color NL, Warm, Dry Genitourinary Exam deferred Neurologic Oriented X3, Speech NL, No motor deficits, No s ensory deficits, Gait NL Interpretation Diagnostics Lab Results Interpretation Results Laboratory Tests 01/15/20 1439: [Embedded Image Not Available] Laboratory Tests: 01/14 01/14 01/14 1613 1439 1439 Chemistry Sodium (137 - 145 mmol/L) 140 Potassium (3.4 - 5.0 mmol/L) 3.9 Chloride (98 - 107 mmol/L) 110 H Carbon Dioxide (22 - 30 mmol/L) 17 L BUN (7 - 17 mg/dL) 14 Creatinine (0.5 - 1.0 mg/dL) 0.8 Glomerular Filtr Rate (>60) 94 Glucose (74 - 106 mg/dL) 106 Lactic Acid (0.7 - 2.0 mmol/L) 2.1 *H 2.6 *H Calcium (8.4 - 10.2 mg/dL) 9.6 Total Bilirubin (0.2 - 1.3 mg/dL) 0.5 Conjugated Bilirubin (0 - 0.3 mg/dL) 0 Unconjugated Bilirubin (0 - 1.1 mg/dL) 0.5 AST (15 - 46 U/L) 40 ALT (0 - 34 U/L) 27 Total Alk Phosphatase (38 - 126 U/L) 93 Total Protein (6.3 - 8.2 g/dL) 7.6 Albumin (3.5 - 5.0 g/dL) 4.3 Lipase (23 - 300 U/L) 47 Hematology WBC (5.0 - 12.0 x10 3/uL) 10.5 RBC (4.20 - 5.40 x10 6/uL) 4.06 L Hgb (12.0 - 16.0 g/dL) 11.4 L Hct (36.0 - 46.0 %) 36.2 MCV (81 - 99 fL) 89 MCH (27 - 31 pg) 28.1 MCHC (33 - 37 g/dL) 31.5 L RDW (11.5 - 15.5 %) 13.5 Plt Count (130 - 400 x10 3/uL) 454 H MPV (9.4 - 16.4 fL) 9.8 Neut % (Auto) (43 - 65 %) 64.0 Lymph % (Auto) (20.5 - 45.5 %) 25.1 Whiteside % (Auto) (5.5 - 11.7 %) 5.0 L Eos % (Auto) (0.9 - 2.9 %) 4.9 H Baso % (Auto) (0.2 - 1.0 %) 0.6 Neut # (Auto) (2.2 - 4.8 x10 3/uL) 6.73 H Lymph # (Auto) (1.3 - 2.9 x10 3/uL) 2.64 Whiteside # (Auto) (0.3 - 0.8 x10 3/uL) 0.53 Eos # (Auto) (0.0 - 0.2 x10 3/uL) 0.51 H Baso # (Auto) (0.0 - 0.1 x10 3/uL) 0.06 Immature Gran % (0.0 - 2.0 %) 0.4 Nucleated RBC % (0 - 1.0 %) 0.0 Urines Urine Color (Yellow) Yellow Urine Appearance (Clear) Cloudy H Urine pH (5.0 - 8.0) 5.0 Ur Specific Calhoun (<1.030) 1.034 H Urine Protein (Negative mg/dL) 100 (2+) H Urine Glucose (UA) (Negative) Negative Urine Ketones (Negative mg/dL) Negative Urine Blood (Negative) Negative Urine Nitrite (Negative) Negative Urine Bilirubin (Negative) Negative Urine Urobilinogen (Negative mg/dL) Negative Ur Leukocyte Esterase (Negative) 2+ H Urine RBC (<4 - 5 /HPF) 11-20 H Urine WBC (<4 - 5 /HPF) 21-30 H Ur Squamous Epith Cells (0 - 5 (RARE) /HPF) >2 5 (MANY) H Urine Bacteria (None - Rare /HPF) Rare Urine Mucus (<Rare /LPF) 4+ H 01/14 1434 Coagulation INR 1.1 PTT (Gurpreet) (23.4 - 37.0 SECONDS) 31.8 PT Patient/Control Mix (9.2 - 12.1 SECONDS) 11. 7 Microbiology: Date/Time Procedure - Status Source Growth 01/14 1642 Urine Culture - RECD URINE 01/14 1434 Blood Culture - RECD BLOOD 01/14 1434 Blood Culture - RECD BLOOD Recent Impressions: RADIOLOGY - XR CHEST 1 V 01/14 1445 Report Impression - Status: SIGNED Entered: 01/15/2020 1507 IMPRESSION: 1. Interstitial thickening suggest bronchitis an d/or viral pneumonitis. Impression By: Jaydon Vallejo M.D. Lab Imaging Statement Laboratory radiographic studies reviewed and con sidered in the medical decision-making. Point of Care Testing Pulse Oximetry Pulse Ox % 97 On: Room air Interpretation Interpreted by me, Pulse oximetr y normal Time 1612 Re-Evaluation MDM Re-Evaluation/Progress Re-Evaluation/Progress Text/Dict Note Sepsis, rule out severe sepsis Time of Re-Eval 1621 Tissue Perfusion Reassessment Patient tissue perfusion reassessment completed. ED Course Medication(s) Ordered Medication(s) Ordered: Anti-Infective Agents Sig/Berenice Start time Last Medication Dose Route Stop Time Status Admin Ceftriaxone Sodium 1,000 MG X1ED STA 01/14 1431 DC 01/14 Sterile Water 10 ML IV 01/14 1433 1447 Central Nervous System Agents Sig/Berenice Start time Last Medication Dose Route Stop Time Status Admin Fentanyl Citrate 100 MCG X1ED STA 01/14 1453 DC 01/14 IV 01/14 1454 1458 Ketorolac 30 MG X1ED STA 01/14 1431 DC 01/14 Tromethamine IV 01/14 1432 1448 Electrolytic, Caloric, And Alex Sig/Berenice Start time Last Medication Dose Route Stop Time Status Admin Lactated Ringer's 1,000 ML X1ED STA 01/14 1431 DC 01/14 IV 01/14 1530 1447 Gastrointestinal Drugs Sig/Berenice Start time Last Medication Dose Route Stop Time Status Admin Ondansetron HCl 4 MG X1ED STA 01/14 1431 DC IV 01/14 1432 1447 Skin And Mucous Membrane Agent Sig/Berenice Start time Last Medication Dose Route Stop Time Status Admin Phenazopyridine HCl 100 MG X1ED STA 01/14 1600 DC 01/14 PO 01/14 1601 1607 Patient Discharge Departure Vital Signs/Condition Vital Signs First Documented: Result Date Time Pulse Ox 99 01/14 1426 B/P 139/72 01/14 1426 B/P Mean 94.8 01/14 1426 Temp 98.2 01/14 1426 Pulse 141 01/14 1426 Resp 16 01/14 1426 O2 Delivery Room air 01/14 1431 Last Documented: Result Date Time Pulse Ox 97 01/14 1612 B/P 110/59 01/14 1611 B/P Mean 76 01/14 1611 Pulse 120 01/14 1611 Resp 22 01/14 1611 O2 Delivery Room air 01/14 1431 Temp 98.2 01/14 1426 All vital signs available at the time of this en try have been reviewed. Condition Stable Clinical Impression Clinical Impression Primary Impression: Sepsis Secondary Impressions: Pyelonephritis Disposition Decision Admit Admit Physician Name Bradly Sebastian MD Admit Physician Hospitalist Request Time 165 Request Date 01/15/20 )( Admission Accepts Yes )( Accepted Time 165 )( Accepted Date 01/15/20 Call Information will see patient Discharge/Care Plan Admit Note I have spoken with the patie nt and/or caregivers. I have explained the patient's condition, diagnoses and gwyn atment plan based on the information available to me at this time. I have answered the patient's and/ or caregiver's questions and addressed any concerns. The patient and/or careg martin have as good an understanding of the patient 's diagnosis, condition and treatment plan as can be expected at this point. The patient has been stabilized within the capability of the emergency department. The patient wi ll be transported for further care and management or will be moved to an observation or inpatient service. I have communicated with the staff or medical p ractitioner taking over this patient's care. Critical Care Time Spent (minutes): 35 Services Performed Patient management by William segundo spent at bedside, Reviewing test results, Reviewing imaging, Discussing teagan ent care, Documentation in record, Time with fam/surrogate Separately billable procedures excluded from william salazar. CC Note 1 Total critical care time 35 minutes. Total criti nirmala care time documented does not include time spent on separately billed proc edures or the services of residents, students, nurses or physician assista nts. I personally saw and examined the patient. I have reviewed all diagno stic interpretations and treatment plans as written. I was present for the kumari portions of any procedures performed and the inclusive time noted in any critical care statement. Critical care time includes patient m anagement by me, time spent at the patients bedside, time to review lab and imaging results, discussing patient care, documentation in the medical record, and time spent with the f amily or caregiver. CC Note 2 The high probability of sudden, clinically signi ficant deterioration in the patient's condition required the highest level of my preparedness to intervene urgently. The services I provided to t his patient were to treat and/or prevent clinically significant deterioration that could result in s evere disability or . Services included the follow ing: chart data review, reviewing nursing notes and/ or old charts, documentation time, consu ltant collaboration regarding findings and treatment options, medic ation orders and management, direct patient care, re -evaluations, vital sign assessments and orderin g, interpreting and reviewing diagnostic studies/lab tests. Aggregate critical care time was 35 minutes, i ch includes only time during which I was engaged in work directly related to the patient's care, as described above, whether at the bedside or elsewhe re in the Emergency Department. It did not include time spent performing other reported procedures or the services of residents, students, nurses or physician assista nts. Electronically Signed by Mason Schofield on 05/[address] [place] [address] #:[id number] END OF REPORT 2020-01-15 14:30:00-00:00 [facility] EMERGENCY PROVIDER REPORT REPORT#:[id number] REPORT STATUS: Signed DATE:01/15/20 TIME: 1430 PATIENT: NATIVIDAD KLINE UNIT #: [id number] [address] AGE: 24 SEX: F PCP PHYS: No Primary or Family Ph ysician SERVICE AUTHOR: Mason Schofield * ALL edits or amendments must be made on the el [employer]/computer document * Mason Schofield 01/15/20 1430: HPI- Female General Confirmed Patient Yes Presentation Chief Complaint Flank pain L Hx Obtained From Patient )( Sudden in Onset? Yes Onset Occurred 1 month ago, worsened over last 2 days Symptom Duration Since onset, Constant Progression since Onset Constant Context of Onset Spontaneous Caused by No trauma by history Location Flank L Quality Aching, Painful Radiation LLQ. Severity: Onset Severe Severity: Current Severe Associated with Reports: Abdominal pain, Chi lls, Nausea, UTI symptoms, Vomiting. Denies: Fever. Associated Other Pt denies other symptoms Exacerbated by Movement, Urination Relieved by Nothing Free Text HPI Notes Free Text HPI Notes Patient is from [place] who came to [place] visit her mom this weekend. The patient has a history of chr onic kidney stones and states that she has had some left flank pain for about a month when she was d iagnosed with a kidney stone. She was seen here last night due to acut e exacerbation of left flank pain with dysuria, nausea and vomiting x2 days. 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 Patient states she went home with pain medication and antibiotics but the pain has wors ened. Review of Systems ROS Statements All systems rev neg except as marked. Free Text ROS Notes Free Text ROS Notes Focused Review of Systems Constitutional Reports: Chills, malaise Denies: Fever Respiratory Denies: Cough, non-productive, Cough, pr oductive, Pleuritic pain, Shortness of breath, Wheezing. Cardiovascular Denies: Chest pain, Palpitations. GI Reports: Nausea, vomiting. Denies: Abdominal pain, Bloody/tarry stool, Cons tipation, Diarrhea. Reports: Flank pain, dysuria, urinary frequency/ urgency. Denies: Hematuria, urination decreased, Urinatio n increased. Musculoskeletal Denies: Myalgia, Neck pain. Past Medical History - Adult Stated Complaint KIDNEY PAIN, DX WITH KIDNEY STO NE LAST NIGHT Review of Nursing Notes Triage notes reviewed Alcohol Use Denies EtOH use Drug Use Denies recreational drugs Smoking status for patients 13 years old or olde r: Unknown,if ever smoked Ambulatory Status Independent Physical Exam Vital Signs Vital Signs First Documented: Result Date Time Pulse Ox 99 01/14 1426 B/P 139/72 01/14 1426 B/P Mean 94.8 01/14 1426 Temp 36.8 01/14 1426 Pulse 141 01/14 1426 Resp 16 01/14 1426 O2 Delivery Room air 01/14 143 Last Documented: Result Date Time Pulse Ox 97 01/15 1612 B/P 110/59 01/14 1611 B/P Mean 76 01/14 1611 Pulse 120 01/14 161 Resp 22 01/14 1611 O2 Delivery Room air 01/14 1431 Temp 36.8 01/14 1426 Review of Vital Signs Reviewed, Vital signs abno rmal (tachycardia) Focused PE General/Const General/Const Awake, Alert Distress/Hydration Distress severe. Resp/Chest Respiratory/Chest Breath sounds NL, Breath soun ds = bilat, No respiratory distress Cardiovascular Cardiovascular Regular rhythm, Heart sounds NL Heart Rate/Rhythm Tachycardia. Abdomen/GI Abdomen/GI Soft, Non-tender, No guarding, No re bound, BS normoactive, No distention MS Back Back Inspection NL, Full range of motion Flank/Spine/Paraspinal Flank tender R (mild), Flank tender L (moderate ). Genitourinary General Exam deferred Free Text PE Notes Free Text PE Notes Focused PE MS Head Atraumatic, Normocephalic Eyes PERRL, EOMI Ears/Nose/Throat Airway patent, Mucous membranes moist, Pharynx NL Skin Color NL, Warm, Dry Genitourinary Exam deferred Neurologic Oriented X3, Speech NL, No motor deficits, No s ensory deficits, Gait NL Interpretation Diagnostics Lab Results Interpretation Results Laboratory Tests 01/15/20 1439: [Embedded Image Not Available] Laboratory Tests: 01/14 01/14 01/14 1613 1439 1439 Chemistry Sodium (137 - 145 mmol/L) 140 Potassium (3.4 - 5.0 mmol/L) 3.9 Chloride (98 - 107 mmol/L) 110 H Carbon Dioxide (22 - 30 mmol/L) 17 L BUN (7 - 17 mg/dL) 14 Creatinine (0.5 - 1.0 mg/dL) 0.8 Glomerular Filtr Rate (>60) 94 Glucose (74 - 106 mg/dL) 106 Lactic Acid (0.7 - 2.0 mmol/L) 2.1 *H 2.6 *H Calcium (8.4 - 10.2 mg/dL) 9.6 Total Bilirubin (0.2 - 1.3 mg/dL) 0.5 Conjugated Bilirubin (0 - 0.3 mg/dL) 0 Unconjugated Bilirubin (0 - 1.1 mg/dL) 0.5 AST (15 - 46 U/L) 40 ALT (0 - 34 U/L) 27 Total Alk Phosphatase (38 - 126 U/L) 93 Total Protein (6.3 - 8.2 g/dL) 7.6 Albumin (3.5 - 5.0 g/dL) 4.3 Lipase (23 - 300 U/L) 47 Hematology WBC (5.0 - 12.0 x10 3/uL) 10.5 RBC (4.20 - 5.40 x10 6/uL) 4.06 L Hgb (12.0 - 16.0 g/dL) 11.4 L Hct (36.0 - 46.0 %) 36.2 MCV (81 - 99 fL) 89 MCH (27 - 31 pg) 28.1 MCHC (33 - 37 g/dL) 31.5 L RDW (11.5 - 15.5 %) 13.5 Plt Count (130 - 400 x10 3/uL) 454 H MPV (9.4 - 16.4 fL) 9.8 Neut % (Auto) (43 - 65 %) 64.0 Lymph % (Auto) (20.5 - 45.5 %) 25.1 Whiteside % (Auto) (5.5 - 11.7 %) 5.0 L Eos % (Auto) (0.9 - 2.9 %) 4.9 H Baso % (Auto) (0.2 - 1.0 %) 0.6 Neut # (Auto) (2.2 - 4.8 x10 3/uL) 6.73 H Lymph # (Auto) (1.3 - 2.9 x10 3/uL) 2.64 Whiteside # (Auto) (0.3 - 0.8 x10 3/uL) 0.53 Eos # (Auto) (0.0 - 0.2 x10 3/uL) 0.51 H Baso # (Auto) (0.0 - 0.1 x10 3/uL) 0.06 Immature Gran % (0.0 - 2.0 %) 0.4 Nucleated RBC % (0 - 1.0 %) 0.0 Serology SARS-CoV-2 Rap RNA(RT-PCR) (NEGATIVE) Negative Urines Urine Color (Yellow) Yellow Urine Appearance (Clear) Cloudy H Urine pH (5.0 - 8.0) 5.0 Ur Specific Calhoun (<1.030) 1.034 H Urine Protein (Negative mg/dL) 100 (2+) H Urine Glucose (UA) (Negative) Negative Urine Ketones (Negative mg/dL) Negative Urine Blood (Negative) Negative Urine Nitrite (Negative) Negative Urine Bilirubin (Negative) Negative Urine Urobilinogen (Negative mg/dL) Negative Ur Leukocyte Esterase (Negative) 2+ H Urine RBC (<4 - 5 /HPF) 11-20 H Urine WBC (<4 - 5 /HPF) 21-30 H Ur Squamous Epith Cells (0 - 5 (RARE) /HPF) >25 (MANY) H Urine Bacteria (None - Rare /HPF) Rare Urine Mucus (<Rare /LPF) 4+ H 01/14 1434 Chemistry Triglycerides (mg/dL) 162 Cholesterol (mg/dL) 164 LDL Cholesterol Measurd (32 - 99 mg/dL) 105.60 H HDL Cholesterol (40 - 59 mg/dL) 40 Coronary Risk Interp 4.10 Coagulation INR 1.1 PTT (Gurpreet) (23.4 - 37.0 SECONDS) 31.8 PT Patient/Control Mix (9.2 - 12.1 SECONDS) 11. 7 Microbiology: Date/Time Procedure - Status Source Growth 01/14 1642 Urine Culture - RES URINE 01/14 1434 Blood Culture - RES BLOOD 01/14 1434 Blood Culture - RES BLOOD Recent Impressions: RADIOLOGY - XR CHEST 1 V 01/14 1445 Report Impression - Status: SIGNED Entered: 01/15/2020 1507 IMPRESSION: 1. Interstitial thickening suggest bronchitis an d/or viral pneumonitis. Impression By: Jaydon Vallejo M.D. Lab Imaging Statement Laboratory radiographic studies reviewed and con sidered in the medical decision-making. Point of Care Testing Pulse Oximetry Pulse Ox % 97 On: Room air Interpretation Interpreted by me, Pulse oximetr y normal Time 1612 Re-Evaluation MDM Re-Evaluation/Progress Re-Evaluation/Progress Text/Dict Note Sepsis, rule out severe sepsis Time of Re-Eval 1621 Tissue Perfusion Reassessment Patient tissue perfusion reassessment completed. ED Course Medication(s) Ordered Medication(s) Ordered: Anti-Infective Agents Sig/Berenice Start time Last Medication Dose Route Stop Time Status Admin Ceftriaxone Sodium 1,000 MG X1ED STA 01/14 1431 DC 01/14 Sterile Water 10 ML IV 01/14 1433 1447 Central Nervous System Agents Sig/Berenice Start time Last Medication Dose Route Stop Time Status Admin Fentanyl Citrate 100 MCG X1ED STA 01/14 1453 DC 01/14 IV 01/14 1454 1458 Ketorolac 30 MG X1ED STA 01/14 1431 DC 01/14 Tromethamine IV 01/14 1432 1448 Electrolytic, Caloric, And Alex Sig/Berenice Start time Last Medication Dose Route Stop Time Status Admin Sodium Chloride 10 ML ASDIR PRN 01/14 1700 DC IV 01/14 2300 Sodium Chloride 250 ML ASDIR PRN 01/14 1700 DC IV 01/14 2300 Lactated Ringer's 1,000 ML X1ED STA 01/14 1431 DC 01/14 IV 01/14 1530 1447 Gastrointestinal Drugs Sig/Berenice Start time Last Medication Dose Route Stop Time Status Admin Ondansetron HCl 4 MG Q4H PRN PRN 01/14 1701 DC 01/14 IV 01/14 2300 1736 Ondansetron HCl 4 MG X1ED STA 01/14 1431 DC IV 01/14 1432 1447 Skin And Mucous Membrane Agent Sig/Berenice Start time Last Medication Dose Route Stop Time Status Admin Phenazopyridine HCl 100 MG X1ED STA 01/14 1600 DC 01/14 PO 01/14 1601 1607 Other Sig/Berenice Start time Last Medication Dose Route Stop Time Status Admin Sodium Chloride 5 ML Q12HR 01/14 2100 DC 01/14 IV 01/14 2300 2001 Sodium Chloride 5 ML ASDIR PRN 01/14 1700 DC IV 01/14 2300 Patient Discharge Departure Vital Signs/Condition Vital Signs First Documented: Result Date Time Pulse Ox 99 01/14 1426 B/P 139/72 01/14 1426 B/P Mean 94.8 01/14 1426 Temp 36.8 01/14 1426 Pulse 141 01/14 1426 Resp 16 01/14 1426 O2 Delivery Room air 01/14 1431 Last Documented: Result Date Time Pulse Ox 97 01/14 1612 B/P 110/59 01/14 1611 B/P Mean 76 01/14 1611 Pulse 120 01/14 1611 Resp 22 01/14 1611 O2 Delivery Room air 01/14 1431 Temp 36.8 01/14 1426 All vital signs available at the time of this en try have been reviewed. Condition Stable Clinical Impression Clinical Impression Primary Impression: Sepsis Secondary Impressions: Pyelonephritis Disposition Decision Admit Admit Physician Name RomuloBradly BECKFORD Admit Physician Hospitalist Request Time 165 Request Date 01/15/20 )( Admission Accepts Yes )( Accepted Time 1658 )( Accepted Date 01/15/20 Call Information will see patient Discharge/Care Plan Admit Note I have spoken with the patie nt and/or caregivers. I have explained the patient's condition, diagnoses and gwyn atment plan based on the information available to me at this time. I have answered the patient's and/ or caregiver's questions and addressed any concerns. The patient and/or careg martin have as good an understanding of the patient 's diagnosis, condition and treatment plan as can be expected at this point. The patient has been stabilized within the capability of the emergency department. The patient wi ll be transported for further care and management or will be moved to an observation or inpatient service. I have communicated with the staff or medical p ractitioner taking over this patient's care. Critical Care Time Spent (minutes): 35 Services Performed Patient management by me, William salazar spent at bedside, Reviewing test results, Reviewing imaging, Discussing teagan ent care, Documentation in record, Time with fam/surrogate Separately billable procedures excluded from william martin. CC Note 1 Total critical care time 35 minutes. Total criti nirmala care time documented does not include time spent on separately billed proc edures or the services of residents, students, nurses or physician assista nts. I personally saw and examined the patient. I have reviewed all diagno stic interpretations and treatment plans as written. I was present for the kumari portions of any procedures performed and the inclusive time noted in any critical care statement. Critical care time includes patient m anagement by me, time spent at the patients bedside, time to review lab and imaging results, discussing patient care, documentation in the medical record, and time spent with the f amily or caregiver. CC Note 2 The high probability of sudden, clinically signi ficant deterioration in the patient's condition required the highest level of my preparedness to intervene urgently. The services I provided to t his patient were to treat and/or prevent clinically significant deterioration that could result in s evere disability or . Services included the follow ing: chart data review, reviewing nursing notes and/ or old charts, documentation time, consu ltant collaboration regarding findings and treatment options, medic ation orders and management, direct patient care, re -evaluations, vital sign assessments and orderin g, interpreting and reviewing diagnostic studies/lab tests. Aggregate critical care time was 35 minutes, whi ch includes only time during which I was engaged in work directly related to the patient's care, as described above, whether at the bedside or elsewhe re in the Emergency Department. It did not include time spent performing other reported procedures or the services of residents, students, nurses or physician assista nts. Diaz Maria 01/16/20 1233: HPI- Female General Initial Greet Date/Time 01/15/20 1424 Past Medical History - Adult Allergies Coded Allergies: azithromycin (From ZITHROMAX) (Intermediate, HIV ES, RASH 01/15/20) doxycycline (Intermediate, HIVES, RASH 01/15/20) metoclopramide (From REGLAN) (MUSCLE SPASM 01/14) Home Medications Reported Medications GABAPENTIN (NEURONTIN) 600 MG PO TID busPIRone (BUSPAR) 10 MG PO TID DULoxetine DR (CYMBALTA) 60 MG PO DAILY TAMSULOSIN ER (FLOMAX) 0.4 MG PO DAILY traZODone (DESYREL) 200 MG PO BEDTIME Patient Discharge Departure Supervising Physician Note MidLv Saw Pt Alone I have reviewed the PA/ADMITTING MANAGER's note and plan of car e. I was available for consultation as needed at al l times during the patient's visit in the emergency department. I agree with the clinical impression , plan and disposition. Electronically Signed by Mason Schofield on 05/05 at 1016 RPT #:[id number] END OF REPORT 2020-01-15 14:30:00-00:00 [facility] ([facility] EMERGENCY PROVIDER REPORT REPORT#:[id number] REPORT STATUS: Signed DATE:01/15/20 TIME: 1430 PATIENT: NATIVIDAD KLINE UNIT #: [id number] [address] AGE: 24 SEX: F PCP PHYS: No Primary or Family Ph ysician SERVICE AUTHOR: Mason Schofield * ALL edits or amendments must be made on the [employer]llie document * KarlastephanieZiyad. 01/15/20 1430: HPI- Female General Confirmed Patient Yes Presentation Chief Complaint Flank pain L Hx Obtained From Patient )( Sudden in Onset? Yes Onset Occurred 1 month ago, worsened over last 2 days Symptom Duration Since onset, Constant Progression since Onset Constant Context of Onset Spontaneous Caused by No trauma by history Location Flank L Quality Aching, Painful Radiation LLQ. Severity: Onset Severe Severity: Current Severe Associated with Reports: Abdominal pain, Chi lls, Nausea, UTI symptoms, Vomiting. Denies: Fever. Associated Other Pt denies other symptoms Exacerbated by Movement, Urination Relieved by Nothing Free Text HPI Notes Free Text HPI Notes Patient is from [place] who came to [place] visit her mom this weekend. The patient has a history of chr onic kidney stones and states that she has had some left flank pain for about a month when she was d iagnosed with a kidney stone. She was seen here last night due to acut e exacerbation of left flank pain with dysuria, nausea and vomiting x2 days. 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 Patient states she went home with pain medication and antibiotics but the pain has wors ened. Review of Systems ROS Statements All systems rev neg except as marked. Free Text ROS Notes Free Text ROS Notes Focused Review of Systems Constitutional Reports: Chills, malaise Denies: Fever Respiratory Denies: Cough, non-productive, Cough, pr oductive, Pleuritic pain, Shortness of breath, Wheezing. Cardiovascular Denies: Chest pain, Palpitations. GI Reports: Nausea, vomiting. Denies: Abdominal pain, Bloody/tarry stool, Cons tipation, Diarrhea. Reports: Flank pain, dysuria, urinary frequency/ urgency. Denies: Hematuria, urination decreased, Urinatio n increased. Musculoskeletal Denies: Myalgia, Neck pain. Past Medical History - Adult Stated Complaint KIDNEY PAIN, DX WITH KIDNEY STO NE LAST NIGHT Review of Nursing Notes Triage notes reviewed Alcohol Use Denies EtOH use Drug Use Denies recreational drugs Smoking status for patients 13 years old or olde r: Unknown,if ever smoked Ambulatory Status Independent Physical Exam Vital Signs Vital Signs First Documented: Result Date Time Pulse Ox 99 01/14 142 B/P 139/72 01/14 1426 B/P Mean 94.8 01/14 1426 Temp 36.8 01/14 142 Pulse 141 01/14 1426 Resp 16 01/14 1426 O2 Delivery Room air 01/14 143 Last Documented: Result Date Time Pulse Ox 97 01/14 1612 B/P 110/59 01/14 161 B/P Mean 76 01/14 161 Pulse 120 01/14 1611 Resp 22 01/14 161 O2 Delivery Room air 01/14 143 Temp 36.8 01/14 142 Review of Vital Signs Reviewed, Vital signs abno rmal (tachycardia) Focused PE General/Const General/Const Awake, Alert Distress/Hydration Distress severe. Resp/Chest Respiratory/Chest Breath sounds NL, Breath soun ds = bilat, No respiratory distress Cardiovascular Cardiovascular Regular rhythm, Heart sounds NL Heart Rate/Rhythm Tachycardia. Abdomen/GI Abdomen/GI Soft, Non-tender, No guarding, No re bound, BS normoactive, No distention MS Back Back Inspection NL, Full range of motion Flank/Spine/Paraspinal Flank tender R (mild), Flank tender L (moderate ). Genitourinary General Exam deferred Free Text PE Notes Free Text PE Notes Focused PE MS Head Atraumatic, Normocephalic Eyes PERRL, EOMI Ears/Nose/Throat Airway patent, Mucous membranes moist, Pharynx NL Skin Color NL, Warm, Dry Genitourinary Exam deferred Neurologic Oriented X3, Speech NL, No motor deficits, No s ensory deficits, Gait NL Interpretation Diagnostics Lab Results Interpretation Results Laboratory Tests 01/15/20 1439: [Embedded Image Not Available] Laboratory Tests: 01/14 01/14 01/14 1613 1439 1439 Chemistry Sodium (137 - 145 mmol/L) 140 Potassium (3.4 - 5.0 mmol/L) 3.9 Chloride (98 - 107 mmol/L) 110 H Carbon Dioxide (22 - 30 mmol/L) 17 L BUN (7 - 17 mg/dL) 14 Creatinine (0.5 - 1.0 mg/dL) 0.8 Glomerular Filtr Rate (>60) 94 Glucose (74 - 106 mg/dL) 106 Lactic Acid (0.7 - 2.0 mmol/L) 2.1 *H 2.6 *H Calcium (8.4 - 10.2 mg/dL) 9.6 Total Bilirubin (0.2 - 1.3 mg/dL) 0.5 Conjugated Bilirubin (0 - 0.3 mg/dL) 0 Unconjugated Bilirubin (0 - 1.1 mg/dL) 0.5 AST (15 - 46 U/L) 40 ALT (0 - 34 U/L) 27 Total Alk Phosphatase (38 - 126 U/L) 93 Total Protein (6.3 - 8.2 g/dL) 7.6 Albumin (3.5 - 5.0 g/dL) 4.3 Lipase (23 - 300 U/L) 47 Hematology WBC (5.0 - 12.0 x10 3/uL) 10.5 RBC (4.20 - 5.40 x10 6/uL) 4.06 L Hgb (12.0 - 16.0 g/dL) 11.4 L Hct (36.0 - 46.0 %) 36.2 MCV (81 - 99 fL) 89 MCH (27 - 31 pg) 28.1 MCHC (33 - 37 g/dL) 31.5 L RDW (11.5 - 15.5 %) 13.5 Plt Count (130 - 400 x10 3/uL) 454 H MPV (9.4 - 16.4 fL) 9.8 Neut % (Auto) (43 - 65 %) 64.0 Lymph % (Auto) (20.5 - 45.5 %) 25.1 Whiteside % (Auto) (5.5 - 11.7 %) 5.0 L Eos % (Auto) (0.9 - 2.9 %) 4.9 H Baso % (Auto) (0.2 - 1.0 %) 0.6 Neut # (Auto) (2.2 - 4.8 x10 3/uL) 6.73 H Lymph # (Auto) (1.3 - 2.9 x10 3/uL) 2.64 Whiteside # (Auto) (0.3 - 0.8 x10 3/uL) 0.53 Eos # (Auto) (0.0 - 0.2 x10 3/uL) 0.51 H Baso # (Auto) (0.0 - 0.1 x10 3/uL) 0.06 Immature Gran % (0.0 - 2.0 %) 0.4 Nucleated RBC % (0 - 1.0 %) 0.0 Serology SARS-CoV-2 Rap RNA(RT-PCR) (NEGATIVE) Negative Urines Urine Color (Yellow) Yellow Urine Appearance (Clear) Cloudy H Urine pH (5.0 - 8.0) 5.0 Ur Specific Calhoun (<1.030) 1.034 H Urine Protein (Negative mg/dL) 100 (2+) H Urine Glucose (UA) (Negative) Negative Urine Ketones (Negative mg/dL) Negative Urine Blood (Negative) Negative Urine Nitrite (Negative) Negative Urine Bilirubin (Negative) Negative Urine Urobilinogen (Negative mg/dL) Negative Ur Leukocyte Esterase (Negative) 2+ H Urine RBC (<4 - 5 /HPF) 11-20 H Urine WBC (<4 - 5 /HPF) 21-30 H Ur Squamous Epith Cells (0 - 5 (RARE) /HPF) >25 (MANY) H Urine Bacteria (None - Rare /HPF) Rare Urine Mucus (<Rare /LPF) 4+ H 01/14 1434 Chemistry Triglycerides (mg/dL) 162 Cholesterol (mg/dL) 164 LDL Cholesterol Measurd (32 - 99 mg/dL) 105.60 H HDL Cholesterol (40 - 59 mg/dL) 40 Coronary Risk Interp 4.10 Coagulation INR 1.1 PTT (Gurpreet) (23.4 - 37.0 SECONDS) 31.8 PT Patient/Control Mix (9.2 - 12.1 SECONDS) 11. 7 Microbiology: Date/Time Procedure - Status Source Growth 01/14 1642 Urine Culture - RES URINE 01/14 1434 Blood Culture - RES BLOOD 01/14 1434 Blood Culture - RES BLOOD Recent Impressions: RADIOLOGY - XR CHEST 1 V 01/14 1445 Report Impression - Status: SIGNED Entered: 01/15/2020 1507 IMPRESSION: 1. Interstitial thickening suggest bronchitis an d/or viral pneumonitis. Impression By: Jaydon Vallejo M.D. Lab Imaging Statement Laboratory radiographic studies reviewed and con sidered in the medical decision-making. Point of Care Testing Pulse Oximetry Pulse Ox % 97 On: Room air Interpretation Interpreted by me, Pulse oximetr y normal Time 1612 Re-Evaluation MDM Re-Evaluation/Progress Re-Evaluation/Progress Text/Dict Note Sepsis, rule out severe sepsis Time of Re-Eval 1621 Tissue Perfusion Reassessment Patient tissue perfusion reassessment completed. ED Course Medication(s) Ordered Medication(s) Ordered: Anti-Infective Agents Sig/Berenice Start time Last Medication Dose Route Stop Time Status Admin Ceftriaxone Sodium 1,000 MG X1ED STA 01/14 1431 DC 01/14 Sterile Water 10 ML IV 01/14 1433 1447 Central Nervous System Agents Sig/Berenice Start time Last Medication Dose Route Stop Time Status Admin Fentanyl Citrate 100 MCG X1ED STA 01/14 1453 DC 01/14 IV 01/14 1454 1458 Ketorolac 30 MG X1ED STA 01/14 1431 DC 01/14 Tromethamine IV 01/14 1432 1448 Electrolytic, Caloric, And Alex Sig/Berenice Start time Last Medication Dose Route Stop Time Status Admin Sodium Chloride 10 ML ASDIR PRN 01/14 1700 DC IV 01/14 2300 Sodium Chloride 250 ML ASDIR PRN 01/14 1700 DC IV 01/14 2300 Lactated Ringer's 1,000 ML X1ED STA 01/14 1431 DC 01/14 IV 01/14 1530 1447 Gastrointestinal Drugs Sig/Berenice Start time Last Medication Dose Route Stop Time Status Admin Ondansetron HCl 4 MG Q4H PRN PRN 01/14 1701 DC 01/14 IV 01/14 2300 1736 Ondansetron HCl 4 MG X1ED STA 01/14 1431 DC IV 01/14 1432 1447 Skin And Mucous Membrane Agent Sig/Berenice Start time Last Medication Dose Route Stop Time Status Admin Phenazopyridine HCl 100 MG X1ED STA 01/14 1600 DC 01/14 PO 01/14 1601 1607 Other Sig/Berenice Start time Last Medication Dose Route Stop Time Status Admin Sodium Chloride 5 ML Q12HR 01/14 2100 DC 01/14 IV 01/14 2300 2001 Sodium Chloride 5 ML ASDIR PRN 01/14 1700 DC IV 01/14 2300 Patient Discharge Departure Vital Signs/Condition Vital Signs First Documented: Result Date Time Pulse Ox 99 01/14 1426 B/P 139/72 01/14 1426 B/P Mean 94.8 01/14 1426 Temp 36.8 01/14 1426 Pulse 141 01/14 1426 Resp 16 01/14 1426 O2 Delivery Room air 01/14 1431 Last Documented: Result Date Time Pulse Ox 97 01/15 1612 B/P 110/59 01/14 1611 B/P Mean 76 01/14 161 Pulse 120 01/14 1611 Resp 22 01/14 1611 O2 Delivery Room air 01/14 1431 Temp 36.8 01/14 1426 All vital signs available at the time of this en try have been reviewed. Condition Stable Clinical Impression Clinical Impression Primary Impression: Sepsis Secondary Impressions: Pyelonephritis Disposition Decision Admit Admit Physician Name Bradly Sebastian MD Admit Physician Hospitalist Request Time 1658 Request Date 01/15/20 )( Admission Accepts Yes )( Accepted Time 1658 )( Accepted Date 01/15/20 Call Information will see patient Discharge/Care Plan Admit Note I have spoken with the patie nt and/or caregivers. I have explained the patient's condition, diagnoses and gwyn atment plan based on the information available to me at this time. I have answered the patient's and/ or caregiver's questions and addressed any concerns. The patient and/or careg martin have as good an understanding of the patient 's diagnosis, condition and treatment plan as can be expected at this point. The patient has been stabilized within the capability of the emergency department. The patient wi ll be transported for further care and management or will be moved to an observation or inpatient service. I have communicated with the staff or medical p ractitioner taking over this patient's care. Critical Care Time Spent (minutes): 35 Services Performed Patient management by meWilliam spent at bedside, Reviewing test results, Reviewing imaging, Discussing teagan ent care, Documentation in record, Time with fam/surrogate Separately billable procedures excluded from william e. CC Note 1 Total critical care time 35 minutes. Total criti nirmala care time documented does not include time spent on separately billed proc edures or the services of residents, students, nurses or physician assista nts. I personally saw and examined the patient. I have reviewed all diagno stic interpretations and treatment plans as written. I was present for the kumari portions of any procedures performed and the inclusive time noted in any critical care statement. Critical care time includes patient m anagement by me, time spent at the patients bedside, time to review lab and imaging results, discussing patient care, documentation in the medical record, and time spent with the f amily or caregiver. CC Note 2 The high probability of sudden, clinically signi ficant deterioration in the patient's condition required the highest level of my preparedness to intervene urgently. The services I provided to t his patient were to treat and/or prevent clinically significant deterioration that could result in s evere disability or . Services included the follow ing: chart data review, reviewing nursing notes and/ or old charts, documentation time, consu ltant collaboration regarding findings and treatment options, medic ation orders and management, direct patient care, re -evaluations, vital sign assessments and orderin g, interpreting and reviewing diagnostic studies/lab tests. Aggregate critical care time was 35 minutes, whi ch includes only time during which I was engaged in work directly related to the patient's care, as described above, whether at the bedside or elsewhe re in the Emergency Department. It did not include time spent performing other reported procedures or the services of residents, students, nurses or physician assista nts. Diaz Maria 01/16/20 1233: HPI- Female General Initial Greet Date/Time 01/15/20 1424 Past Medical History - Adult Allergies Coded Allergies: azithromycin (From ZITHROMAX) (Intermediate, HIV ES, RASH 01/15/20) doxycycline (Intermediate, HIVES, RASH 01/15/20) metoclopramide (From REGLAN) (MUSCLE SPASM 01/14) Home Medications Reported Medications GABAPENTIN (NEURONTIN) 600 MG PO TID busPIRone (BUSPAR) 10 MG PO TID DULoxetine DR (CYMBALTA) 60 MG PO DAILY TAMSULOSIN ER (FLOMAX) 0.4 MG PO DAILY traZODone (DESYREL) 200 MG PO BEDTIME Patient Discharge Departure Supervising Physician Note MidLv Saw Pt Alone I have reviewed the PA/ADMITTING MANAGER's note and plan of car e. I was available for consultation as needed at al l times during the patient's visit in the emergency department. I agree with the clinical impression , plan and disposition. Electronically Signed by Mason Schofield on 05/05 at 1016 at 1241 [facility] #:[id number] END OF REPORT 2020-01-14 23:06:00-00:00 [facility] ([facility] EMERGENCY PROVIDER REPORT REPORT#:[id number] REPORT STATUS: Signed DATE:01/14/20 TIME: 2305 PATIENT: NATIVIDAD KLINE UNIT #: [id number] ROOM/BED: [place] [id number] AGE: 24 SEX: F PCP PHYS: No Primary or Family Ph ysician SERVICE AUTHOR: Gabrielle Osullivan ADMITTING MANAGER * ALL edits or amendments must be made on the [employer]/computer document * HPI- Female General Confirmed Patient Yes Patient Type Existing patient Initial Greet Date/Time 01/14/20 929 PCP FRANCESCO Provider in Triage Greet Note I have greeted and performed a focused rapid initial assessment of this patient. A comprehensive ED assessment and evaluation of the patient, analysis of all test results, and completion of the medical deci nneka-making process will be conducted by additional ED providers. MSE Not Complete The medical screening exam i s not complete. Further evaluation and/or treatment is required. The patient will be re-directed to the emergency department. Presentation Chief Complaint Flank pain L Hx Obtained From Patient )( Sudden in Onset? Yes Onset Occurred ONE MONTH AGO Symptom Duration Since onset, Constant Progression since Onset Gradually worsening Context of Onset Spontaneous Caused by No trauma by history Location Flank L Quality Sharp, Stabbing Radiation No: Does not radiate. Severity: Onset Severe, Pain level 10 out of 10 Severity: Current Severe, Pain level 10 out of 1 0 Associated with Reports: Nausea, Vomiting. Associated Other Pt denies other symptoms Exacerbated by Nothing Relieved by Nothing Context Recent Healthcare Recent doctor visit, Previous diagnosis, Prior workup Similar Sx Previous Yes Free Text HPI Notes Free Text HPI Notes 24-year-old female with a past medical history o f kidney stones presents emergency department with co mplaint of left flank pain with nausea vomiting for the past month. Patient denies fever cough conge stion or body aches. Patient is hyperventilating and vigorously flailing arou nd in the exam chair. Review of Systems ROS Statements All systems rev neg except as marked. Focused Review of Systems Constitutional Denies: Chills, Fever, Lethargy. Ears/Nose/Throat Denies: Earache bilat, Nasal congestion, Sore th roat. GI Reports: Nausea, Vomiting. Denies: Abdominal alison n, Diarrhea. Female Reports: Flank pain, Urinary frequency, Urinary urgency. Musculoskeletal Denies: Back pain, Extremity pain. Endocrine Denies: Polyuria, Weight loss. Skin Denies: Diaphoresis, Rash. Neurologic Denies: Change LOC, Dizziness, Focal weakness, H eadache, Numbness, Slurred speech. Past Medical History - Adult Stated Complaint ABDOMINAL PAIN,HERE LAST NIGHT, RENAL STONES Allergies Coded Allergies: azithromycin (From ZITHROMAX) (Severe, SWELLS ) doxycycline (Severe, THROAT CLOSES 04/24/16) Home Medications Active Scripts LEVOFLOXACIN (LEVAQUIN) 750 MG PO DAILY LEVOFLOXACIN (LEVAQUIN) 750 MG PO DAILY #5 TABS Prov: Mayelin Tyler* 01/13/20 ACETAMINOPHEN/CODEINE (TYLENOL WITH CODE INE #3 300/30 MG) 1 TAB PO Q4H PRN PRN ACUTE PAIN ACETAMINOPHEN/CODEINE (TYLENOL WITH CODEINE #3 300/30 MG) 1 TAB PO Q4H PRN PRN ACUTE PAIN #8 TABS Prov: Mayelin Tyler* 01/13/20 KETOROLAC (TORADOL) 10 MG PO Q6H PRN PRN PAIN KETOROLAC (TORADOL) 10 MG PO Q6H PRN PRN PAIN # 20 TABS Prov: Mayelin Tyler* 01/13/20 PROMETHAZINE (PHENERGAN) 25 MG PO Q6H PRN PRN NA USEA/VOMITING PROMETHAZINE (PHENERGAN) 25 MG PO Q6H PRN PRN N AUSEA/VOMITING #10 TABS Prov: Mayelin Tyler* 01/13/20 Reported Medications acetaZOLAMIDE (DIAMOX) 250 MG PO Q8H PNV WITH FE FUMARATE/FA () 1 TAB PO JF Y Review of Nursing Notes Rev avail, and agree Past Medical History: Reports: Urinary tract infection. Alcohol Use Denies EtOH use Drug Use Denies recreational drugs Smoking status for patients 13 years old or olde r: Never Smoker Ambulatory Status Independent Physical Exam Vital Signs Vital Signs First Documented: Result Date Time Pulse Ox 74 01/13 2313 B/P 118/75 01/13 2313 B/P Mean 89.4 01/13 2313 Temp 36.8 01/13 2313 Pulse 130 01/13 2313 Resp 22 01/13 2313 Last Documented: Result Date Time Pulse Ox 74 01/13 2313 B/P 118/75 01/13 2313 B/P Mean 89.4 01/13 2313 Temp 36.8 01/13 2313 Pulse 130 01/13 2313 Resp 22 01/13 2313 Review of Vital Signs Reviewed Basic Physical Exam Basic PE NEURO: alert oriented, NEURO: gross mov ement NL Focused PE General/Const General/Const Awake, Alert Behavior Anxious, Hyperventilating, Restless. Appearance/Presentation Ill appearing/not toxic, Obese, morbidly. Negat ida: Pale, Toxic appearing. Resp/Chest Respiratory/Chest Breath sounds NL, Breath soun ds = bilat, No respiratory distress, No rales, No rhonchi, No wheezing Cardiovascular Cardiovascular Regular rhythm, Heart sounds NL, Peripheral circulation NL Heart Rate/Rhythm Tachycardia. Abdomen/GI Abdomen/GI Soft, Non-tender, No guarding, No re bound MS Back Back Inspection NL, Non-tender, No CVA tenderne ss Skin Skin Color NL, No rash, Warm, Dry, Turgor NL Genitourinary General Exam deferred Interpretation Diagnostics Lab Results Interpretation Results Laboratory Tests 01/14/209: [Embedded Image Not Available] Laboratory Tests: 01/149 2309 Chemistry Sodium (137 - 145 mmol/L) 140 Potassium (3.4 - 5.0 mmol/L) 3.9 Chloride (98 - 107 mmol/L) 107 Carbon Dioxide (22 - 30 mmol/L) 22 BUN (7 - 17 mg/dL) 14 Creatinine (0.5 - 1.0 mg/dL) 0.8 Glomerular Filtr Rate (>60) 94 Glucose (74 - 106 mg/dL) 86 Lactic Acid (0.7 - 2.0 mmol/L) 1.2 2.3 *H Calcium (8.4 - 10.2 mg/dL) 9.9 Total Bilirubin (0.2 - 1.3 mg/dL) 0.2 Conjugated Bilirubin (0 - 0.3 mg/dL) 0 Unconjugated Bilirubin (0 - 1.1 mg/dL) 0.1 AST (15 - 46 U/L) 30 ALT (0 - 34 U/L) 27 Total Alk Phosphatase (38 - 126 U/L) 87 Total Protein (6.3 - 8.2 g/dL) 8.1 Albumin (3.5 - 5.0 g/dL) 4.6 Serum , Qual (NEGATIVE) NEGATIVE Hematology WBC (5.0 - 12.0 x10 3/uL) 12.8 H RBC (4.20 - 5.40 x10 6/uL) 4.09 L Hgb (12.0 - 16.0 g/dL) 11.9 L Hct (36.0 - 46.0 %) 36.7 MCV (81 - 99 fL) 90 MCH (27 - 31 pg) 29.1 MCHC (33 - 37 g/dL) 32.4 L RDW (11.5 - 15.5 %) 13.5 Plt Count (130 - 400 x10 3/uL) 486 H MPV (9.4 - 16.4 fL) 9.5 Neut % (Auto) (43 - 65 %) 54.9 Lymph % (Auto) (20.5 - 45.5 %) 34.1 Whiteside % (Auto) (5.5 - 11.7 %) 6.0 Eos % (Auto) (0.9 - 2.9 %) 4.3 H Baso % (Auto) (0.2 - 1.0 %) 0.5 Neut # (Auto) (2.2 - 4.8 x10 3/uL) 7.00 H Lymph # (Auto) (1.3 - 2.9 x10 3/uL) 4.35 H Whiteside # (Auto) (0.3 - 0.8 x10 3/uL) 0.77 Eos # (Auto) (0.0 - 0.2 x10 3/uL) 0.55 H Baso # (Auto) (0.0 - 0.1 x10 3/uL) 0.06 Immature Gran % (0.0 - 2.0 %) 0.2 Nucleated RBC % (0 - 1.0 %) 0.0 Urines Urine Color (Yellow) Yellow Urine Appearance (Clear) Cloudy H Urine pH (5.0 - 8.0) 6.0 Ur Specific Calhoun (<1.030) 1.027 Urine Protein (Negative mg/dL) 30 (1+) H Urine Glucose (UA) (Negative) Negative Urine Ketones (Negative mg/dL) Negative Urine Blood (Negative) Negative Urine Nitrite (Negative) Negative Urine Bilirubin (Negative) Negative Urine Urobilinogen (Negative mg/dL) Negative Ur Leukocyte Esterase (Negative) 3+ H Urine RBC (<4 - 5 /HPF) 11-20 H Urine WBC (<4 - 5 /HPF) 21-30 H Ur Squamous Epith Cells (0 - 5 (RARE) /HPF) >2 5 (MANY) H Urine Bacteria (None - Rare /HPF) None Urine Mucus (<Rare /LPF) Rare H Microbiology: Date/Time Procedure - Status Source Growth 01/14 6 Urine Culture - RECD URINE 01/13 2309 Blood Culture - ORD BLOOD 01/13 2309 Blood Culture - ORD BLOOD 01/14 2308 Blood Culture - RES BLOOD 01/14 2308 Blood Culture - RES BLOOD Lab Statement Laboratory studies reviewed and considered in e medical decision-making. Point of Care Testing Pulse Oximetry Pulse Ox % 98 On: Room air Interpretation Interpreted by ct Time 2310 Re-Evaluation MDM Free Text MDM Notes Free Text MDM Notes REFUSES CT SCAN, HAD ON LAST NIGHT Re-Evaluation/Progress Re-Evaluation/Progress Time of Re-Eval 0110 Re-Eval Status PT STATES SHE FEELS BETTER, DOES NT WANT ADMISSION ANYMORE. STATES SHE DOESNT HAVE A DIRECTOR AMBULATORY AND IS LEAV ING TO GO TO [place] IN THE MORNING. Plan Post Re-Eval Plan discharge Tissue Perfusion Reassessment Patient tissue perfusion reassessment completed. ED Course Medication(s) Ordered Medication(s) Ordered: Anti-Infective Agents Sig/Berenice Start time Last Medication Dose Route Stop Time Status Admin Ceftriaxone Sodium 1,000 MG X1ED STA 01/13 2253 DC 01/13 Sterile Water 10 ML IV 01/135 2332 Central Nervous System Agents Sig/Berenice Start time Last Medication Dose Route Stop Time Status Admin Hydrocodone Bitart/ 1 TAB Q4H PRN PRN 01/14 010 0 DCD Acetaminophen PO 01/14 0647 Morphine Sulfate 2 MG Q4H PRN PRN 01/14 0100 DC D IV 01/14 0647 Acetaminophen 650 MG Q4H PRN PRN 01/14 0048 DCD PO 01/14 0647 Hydrocodone Bitart/ 1 TAB Q4H PRN PRN 01/14 004 8 DCD Acetaminophen PO 01/14 0647 Morphine Sulfate 4 MG Q4H PRN PRN 01/14 0048 DC D IV 01/14 0647 Morphine Sulfate 4 MG X1ED STA 01/14 0020 DC IV 01/14 0021 0057 Ketorolac 30 MG X1ED STA 01/13 2254 DC 01/13 Tromethamine IV 01/13 2255 2329 Electrolytic, Caloric, And Alex Sig/Berenice Start time Last Medication Dose Route Stop Time Status Admin Sodium Chloride 10 ML ASDIR PRN 01/14 0100 DCD IV 01/14 0647 Sodium Chloride 250 ML ASDIR PRN 01/14 0100 DCD IV 01/14 0647 Sodium Chloride 1,000 ML .[id number] 01/14 0100 DC D IV 01/14 0647 Lactated Ringer's 1,000 ML X1ED STA 01/13 2253 DC 01/13 IV 01/13 2352 2331 Gastrointestinal Drugs Sig/Berenice Start time Last Medication Dose Route Stop Time Status Admin Ondansetron HCl 4 MG Q4H PRN PRN 01/14 0048 DCD IV 01/14 0647 Ondansetron HCl 4 MG X1ED STA 01/13 2253 DC IV 01/13 2254 2332 Other Sig/Berenice Start time Last Medication Dose Route Stop Time Status Admin Sodium Chloride 5 ML Q12HR 01/14 0900 DCD IV 02/13 0901 Sodium Chloride 5 ML ASDIR PRN 01/14 0100 DCD IV 01/14 0647 Patient Discharge Departure Vital Signs/Condition Vital Signs First Documented: Result Date Time Pulse Ox 74 01/13 2313 B/P 118/75 01/13 2313 B/P Mean 89.4 01/13 2313 Temp 36.8 01/13 2313 Pulse 130 01/13 2313 Resp 22 01/13 2313 Last Documented: Result Date Time Pulse Ox 74 01/13 2313 B/P 118/75 01/13 2313 B/P Mean 89.4 01/13 2313 Temp 36.8 01/13 2313 Pulse 130 01/13 2313 Resp 01/13 All vital signs available at the time of this en try have been reviewed. Condition Stable Clinical Impression Clinical Impression Primary Impression: Kidney stone Secondary Impressions: Sepsis, UTI (urinary trac t infection) Disposition Decision Discharge )( Discharged to Home Yes )( Time 0110 )( Date 01/15/20 Discharge/Care Plan Counseled Regarding Diagnosis, Lab resul ts, Need for follow-up, When to return to ED (Auto) Prescriptions Current Visit Scripts TAMSULOSIN ER (FLOMAX) 0.4 MG PO DAILY TAMSULOSIN ER (FLOMAX) 0.4 MG PO DAILY #5 CAPS Discharge Note I have spoken with the patie nt and/or caregivers. I have explained the patient's condition, diagnoses and gwyn atment plan based on the information available to me at this time. I have answered the patient's and/ or caregiver's questions and addressed any concerns. The patient and/or careg martin have as good an understanding of the patient 's diagnosis, condition and treatment plan as can be expected at this point. The vital signs have bee n stable. The patient's condition is stable and appr opriate for discharge from the emergency department. The patient will pursue further outpatient evalu ation with the primary care physician or other designated or consulting phys ician as outlined in the discharge instructions. The patient and/or caregivers are agreeable to this plan of care and follow-up instructions have been exp lained in detail. The patient and/or caregivers have received these instructio ns in written format and have expressed an understanding of the discharge inst ructions. The patient and/or caregivers are aware that any significant change in condition or worsening of symptoms should prompt an immediate return to [facility] or the closest emergency department or a call to 911. Admit Note I have spoken with the patie nt and/or caregivers. I have explained the patient's condition, diagnoses and gwyn atment plan based on the information available to me at this time. I have answered the patient's and/ or caregiver's questions and addressed any concerns. The patient and/or careg martin have as good an understanding of the patient 's diagnosis, condition and treatment plan as can be expected at this point. The patient has been stabilized within the capability of the emergency department. The patient wi ll be transported for further care and management or will be moved to an observation or inpatient service. I have communicated with the staff or medical p racrosaliaer taking over this patient's care. Quality Measures Preg Test for Women w/Abd Pa in Female age 14-50, Complaint of abdominal pn, Any preg test ordered Electronically Signed by Gabrielle Osullivan 01/15/20 at 1816 RPT #:[id number] END OF REPORT 2020-01-14 23:06:00-00:00 [facility] ([facility]) EMERGENCY PROVIDER REPORT REPORT#:[id number] REPORT STATUS: Signed DATE:01/14/20 TIME: 2305 PATIENT: NATIVIDAD KLINE UNIT #: [id number] ROOM/BED: [place] [id number] AGE: 24 SEX: F PCP PHYS: No Primary or Family Ph ysician SERVICE AUTHOR: Gabrielle Osullivan ADMITTING MANAGER * ALL edits or amendments must be made on the [employer]/computer document * Gabrielle Osullivan. 01/14/202305: HPI- Female General Confirmed Patient Yes Patient Type Existing patient PCP FRANCESCO Provider in Triage Greet Note I have greeted and performed a focused rapid initial assessment of this patient. A comprehensive ED assessment and evaluation of the patient, analysis of all test results, and completion of the medical deci nneka-making process will be conducted by additional ED providers. MSE Not Complete The medical screening exam i s not complete. Further evaluation and/or treatment is required. The patient will be re-directed to the emergency department. Presentation Chief Complaint Flank pain L Hx Obtained From Patient )( Sudden in Onset? Yes Onset Occurred ONE MONTH AGO Symptom Duration Since onset, Constant Progression since Onset Gradually worsening Context of Onset Spontaneous Caused by No trauma by history Location Flank L Quality Sharp, Stabbing Radiation No: Does not radiate. Severity: Onset Severe, Pain level 10 out of 10 Severity: Current Severe, Pain level 10 out of 1 0 Associated with Reports: Nausea, Vomiting. Associated Other Pt denies other symptoms Exacerbated by Nothing Relieved by Nothing Context Recent Healthcare Recent doctor visit, Previous diagnosis, Prior workup Similar Sx Previous Yes Free Text HPI Notes Free Text HPI Notes 24-year-old female with a past medical history o f kidney stones presents emergency department with co mplaint of left flank pain with nausea vomiting for the past month. Patient denies fever cough conge stion or body aches. Patient is hyperventilating and vigorously flailing arou nd in the exam chair. Review of Systems ROS Statements All systems rev neg except as marked. Focused Review of Systems Constitutional Denies: Chills, Fever, Lethargy. Ears/Nose/Throat Denies: Earache bilat, Nasal congestion, Sore th roat. GI Reports: Nausea, Vomiting. Denies: Abdominal alison n, Diarrhea. Female Reports: Flank pain, Urinary frequency, Urinary urgency. Musculoskeletal Denies: Back pain, Extremity pain. Endocrine Denies: Polyuria, Weight loss. Skin Denies: Diaphoresis, Rash. Neurologic Denies: Change LOC, Dizziness, Focal weakness, H eadache, Numbness, Slurred speech. Past Medical History - Adult Stated Complaint ABDOMINAL PAIN,HERE LAST NIGHT, RENAL STONES Allergies Coded Allergies: azithromycin (From ZITHROMAX) (Severe, SWELLS ) doxycycline (Severe, THROAT CLOSES 04/24/16) Home Medications Active Scripts LEVOFLOXACIN (LEVAQUIN) 750 MG PO DAILY LEVOFLOXACIN (LEVAQUIN) 750 MG PO DAILY #5 TABS Prov: Mayelin Tyler A* 20 ACETAMINOPHEN/CODEINE (TYLENOL WITH CODE INE #3 300/30 MG) 1 TAB PO Q4H PRN PRN ACUTE PAIN ACETAMINOPHEN/CODEINE (TYLENOL WITH CODEINE #3 300/30 MG) 1 TAB PO Q4H PRN PRN ACUTE PAIN #8 TABS Prov: Mayelin Tyler A* 01/12/20 KETOROLAC (TORADOL) 10 MG PO Q6H PRN PRN PAIN KETOROLAC (TORADOL) 10 MG PO Q6H PRN PRN PAIN # 20 TABS Prov: Mayelin Tyler A* 01/12/20 PROMETHAZINE (PHENERGAN) 25 MG PO Q6H PRN PRN NA USEA/VOMITING PROMETHAZINE (PHENERGAN) 25 MG PO Q6H PRN PRN N AUSEA/VOMITING #10 TABS Prov: Mayelin Tyler A* 01/13/20 Reported Medications acetaZOLAMIDE (DIAMOX) 250 MG PO Q8H PNV WITH FE FUMARATE/FA () 1 TAB PO JF Y Review of Nursing Notes Rev avail, and agree Past Medical History: Reports: Urinary tract infection. Alcohol Use Denies EtOH use Drug Use Denies recreational drugs Smoking status for patients 13 years old or olde r: Never Smoker Ambulatory Status Independent Physical Exam Vital Signs Vital Signs First Documented: Result Date Time Pulse Ox 74 01/13 2313 B/P 118/75 01/13 2313 B/P Mean 89.4 01/13 2313 Temp 98.2 01/13 2313 Pulse 130 01/13 2313 Resp 22 01/13 2313 Last Documented: Result Date Time Pulse Ox 74 01/13 2313 B/P 118/75 01/13 2313 B/P Mean 89.4 01/13 2313 Temp 98.2 01/13 2313 Pulse 130 01/13 2313 Resp 22 01/13 2313 Review of Vital Signs Reviewed Basic Physical Exam Basic PE NEURO: alert oriented, NEURO: gross mov ement NL Focused PE General/Const General/Const Awake, Alert Behavior Anxious, Hyperventilating, Restless. Appearance/Presentation Ill appearing/not toxic, Obese, morbidly. Negat ida: Pale, Toxic appearing. Resp/Chest Respiratory/Chest Breath sounds NL, Breath soun ds = bilat, No respiratory distress, No rales, No rhonchi, No wheezing Cardiovascular Cardiovascular Regular rhythm, Heart sounds NL, Peripheral circulation NL Heart Rate/Rhythm Tachycardia. Abdomen/GI Abdomen/GI Soft, Non-tender, No guarding, No re bound MS Back Back Inspection NL, Non-tender, No CVA tenderne ss Skin Skin Color NL, No rash, Warm, Dry, Turgor NL Genitourinary General Exam deferred Interpretation Diagnostics Lab Results Interpretation Results Laboratory Tests 01/14/202308: [Embedded Image Not Available] Laboratory Tests: 01/146 9 2309 Chemistry Sodium (137 - 145 mmol/L) 140 Potassium (3.4 - 5.0 mmol/L) 3.9 Chloride (98 - 107 mmol/L) 107 Carbon Dioxide (22 - 30 mmol/L) 22 BUN (7 - 17 mg/dL) 14 Creatinine (0.5 - 1.0 mg/dL) 0.8 Glomerular Filtr Rate (>60) 94 Glucose (74 - 106 mg/dL) 86 Lactic Acid (0.7 - 2.0 mmol/L) 1.2 2.3 *H Calcium (8.4 - 10.2 mg/dL) 9.9 Total Bilirubin (0.2 - 1.3 mg/dL) 0.2 Conjugated Bilirubin (0 - 0.3 mg/dL) 0 Unconjugated Bilirubin (0 - 1.1 mg/dL) 0.1 AST (15 - 46 U/L) 30 ALT (0 - 34 U/L) 27 Total Alk Phosphatase (38 - 126 U/L) 87 Total Protein (6.3 - 8.2 g/dL) 8.1 Albumin (3.5 - 5.0 g/dL) 4.6 Serum , Qual (NEGATIVE) NEGATIVE Hematology WBC (5.0 - 12.0 x10 3/uL) 12.8 H RBC (4.20 - 5.40 x10 6/uL) 4.09 L Hgb (12.0 - 16.0 g/dL) 11.9 L Hct (36.0 - 46.0 %) 36.7 MCV (81 - 99 fL) 90 MCH (27 - 31 pg) 29.1 MCHC (33 - 37 g/dL) 32.4 L RDW (11.5 - 15.5 %) 13.5 Plt Count (130 - 400 x10 3/uL) 486 H MPV (9.4 - 16.4 fL) 9.5 Neut % (Auto) (43 - 65 %) 54.9 Lymph % (Auto) (20.5 - 45.5 %) 34.1 Whiteside % (Auto) (5.5 - 11.7 %) 6.0 Eos % (Auto) (0.9 - 2.9 %) 4.3 H Baso % (Auto) (0.2 - 1.0 %) 0.5 Neut # (Auto) (2.2 - 4.8 x10 3/uL) 7.00 H Lymph # (Auto) (1.3 - 2.9 x10 3/uL) 4.35 H Whiteside # (Auto) (0.3 - 0.8 x10 3/uL) 0.77 Eos # (Auto) (0.0 - 0.2 x10 3/uL) 0.55 H Baso # (Auto) (0.0 - 0.1 x10 3/uL) 0.06 Immature Gran % (0.0 - 2.0 %) 0.2 Nucleated RBC % (0 - 1.0 %) 0.0 Urines Urine Color (Yellow) Yellow Urine Appearance (Clear) Cloudy H Urine pH (5.0 - 8.0) 6.0 Ur Specific Calhoun (<1.030) 1.027 Urine Protein (Negative mg/dL) 30 (1+) H Urine Glucose (UA) (Negative) Negative Urine Ketones (Negative mg/dL) Negative Urine Blood (Negative) Negative Urine Nitrite (Negative) Negative Urine Bilirubin (Negative) Negative Urine Urobilinogen (Negative mg/dL) Negative Ur Leukocyte Esterase (Negative) 3+ H Urine RBC (<4 - 5 /HPF) 11-20 H Urine WBC (<4 - 5 /HPF) 21-30 H Ur Squamous Epith Cells (0 - 5 (RARE) /HPF) >25 (MANY) H Urine Bacteria (None - Rare /HPF) None Urine Mucus (<Rare /LPF) Rare H Microbiology: Date/Time Procedure - Status Source Growth 01/146 Urine Culture - RECD URINE 01/13 2309 Blood Culture - ORD BLOOD 01/13 2309 Blood Culture - ORD BLOOD 01/14 2308 Blood Culture - RES BLOOD 01/14 2308 Blood Culture - RES BLOOD Lab Statement Laboratory studies reviewed and considered in e medical decision-making. Point of Care Testing Pulse Oximetry Pulse Ox % 98 On: Room air Interpretation Interpreted by me Time 231 Re-Evaluation MDM Free Text MDM Notes Free Text MDM Notes REFUSES CT SCAN, HAD ON LAST NIGHT Re-Evaluation/Progress Re-Evaluation/Progress Time of Re-Eval 0110 Re-Eval Status PT STATES SHE FEELS BETTER, DOES NT WANT ADMISSION ANYMORE. STATES SHE DOESNT HAVE A DIRECTOR AMBULATORY AND IS LEAV ING TO GO TO [place] IN THE MORNING. Plan Post Re-Eval Plan discharge Tissue Perfusion Reassessment Patient tissue perfusion reassessment completed. ED Course Medication(s) Ordered Medication(s) Ordered: Central Nervous System Agents Sig/Berenice Start time Last Medication Dose Route Stop Time Status Admin Hydrocodone Bitart/ 1 TAB Q4H PRN PRN 01/14 010 0 DCD Acetaminophen PO 01/14 0647 Morphine Sulfate 2 MG Q4H PRN PRN 01/14 0100 DC D IV 01/14 0647 Acetaminophen 650 MG Q4H PRN PRN 01/14 0048 DCD PO 01/14 0647 Hydrocodone Bitart/ 1 TAB Q4H PRN PRN 01/14 004 8 DCD Acetaminophen PO 01/14 0647 Morphine Sulfate 4 MG Q4H PRN PRN 01/14 0048 DC D IV 11/01 0647 Electrolytic, Caloric, And Alex Sig/Berenice Start time Last Medication Dose Route Stop Time Status Admin Sodium Chloride 10 ML ASDIR PRN 01/14 100 DCD IV 01/14 647 Sodium Chloride 250 ML ASDIR PRN 01/14 100 DC D IV 01/14 647 Sodium Chloride 1,000 ML .[id number] 01/14 100 DC D IV 01/14 647 Gastrointestinal Drugs Sig/Berenice Start time Last Medication Dose Route Stop Time Status Admin Ondansetron HCl 4 MG Q4H PRN PRN 01/14 0048 DCD IV 01/14 0647 Other Sig/Berenice Start time Last Medication Dose Route Stop Time Status Admin Sodium Chloride 5 ML Q12HR 01/14 09 DCD IV 02/13 901 Sodium Chloride 5 ML ASDIR PRN 01/14 100 DCD IV 01/14 647 Patient Discharge Departure Vital Signs/Condition Vital Signs First Documented: Result Date Time Pulse Ox 74 01/133 B/P 118/75 01/13 2313 B/P Mean 89.4 01/13 2313 Temp 98.2 01/13 2313 Pulse 130 01/13 2313 Resp 22 01/13 2313 Last Documented: Result Date Time Pulse Ox 74 01/13 2313 B/P 118/75 01/13 2313 B/P Mean 89.4 01/13 2313 Temp 98.2 01/13 2313 Pulse 130 01/13 2313 Resp 22 01/13 2313 All vital signs available at the time of this en try have been reviewed. Condition Stable Clinical Impression Clinical Impression Primary Impression: Kidney stone Secondary Impressions: Sepsis, UTI (urinary trac t infection) Disposition Decision Discharge )( Discharged to Home Yes )( Time 0110 )( Date 01/15/20 Discharge/Care Plan Counseled Regarding Diagnosis, Lab resul ts, Need for follow-up, When to return to ED (Auto) Prescriptions Current Visit Scripts TAMSULOSIN ER (FLOMAX) 0.4 MG PO DAILY TAMSULOSIN ER (FLOMAX) 0.4 MG PO DAILY #5 CAPS Discharge Note I have spoken with the patie nt and/or caregivers. I have explained the patient's condition, diagnoses and gwyn atment plan based on the information available to me at this time. I have answered the patient's and/ or caregiver's questions and addressed any concerns. The patient and/or careg martin have as good an understanding of the patient 's diagnosis, condition and treatment plan as can be expected at this point. The vital signs have bee n stable. The patient's condition is stable and appr opriate for discharge from the emergency department. The patient will pursue further outpatient evalu ation with the primary care physician or other designated or consulting phys ician as outlined in the discharge instructions. The patient and/or caregivers are agreeable to this plan of care and follow-up instructions have been exp lained in detail. The patient and/or caregivers have received these instructio ns in written format and have expressed an understanding of the discharge inst ructions. The patient and/or caregivers are aware that any significant change in condition or worsening of symptoms should prompt an immediate return to [facility] or the closest emergency department or a call to 911. Admit Note I have spoken with the patie nt and/or caregivers. I have explained the patient's condition, diagnoses and gwyn atment plan based on the information available to me at this time. I have answered the patient's and/ or caregiver's questions and addressed any concerns. The patient and/or careg martin have as good an understanding of the patient 's diagnosis, condition and treatment plan as can be expected at this point. The patient has been stabilized within the capability of the emergency department. The patient wi ll be transported for further care and management or will be moved to an observation or inpatient service. I have communicated with the staff or medical p ractitioner taking over this patient's care. Quality Measures Preg Test for Women w/Abd Pa in Female age 14-50, Complaint of abdominal pn, Any preg test ordered Jonas Lambert 01/16/20 0043: HPI- Female General Initial Greet Date/Time 01/14/20 7632 Patient Discharge Departure Supervising Physician Note MidLv Saw Pt Alone I have reviewed the PA/ADMITTING MANAGER's note and plan of car e. I was available for consultation as needed at al l times during the patient's visit in the emergency department. I agree with the clinical impression , plan and disposition. Electronically Signed by Gabrielle Osullivan 01/15/20 at 1816 RPT #:[id number] END OF REPORT 2020-01-14 23:06:00-00:00 [facility] ([facility] EMERGENCY PROVIDER REPORT REPORT#:[id number] REPORT STATUS: Signed DATE:01/14/20 TIME: 2305 PATIENT: NATIVIDAD KLINE UNIT #: [id number] ROOM/BED: [id number] AGE: 24 SEX: F PCP PHYS: No Primary or Family Ph ysician SERVICE AUTHOR: Gabrielle Osullivan ADMITTING MANAGER * ALL edits or amendments must be made on the [employer]/computer document * Gabrielle Osullivan. 01/14/202305: HPI- Female General Confirmed Patient Yes Patient Type Existing patient PCP FRANCESCO Provider in Triage Greet Note I have greeted and performed a focused rapid initial assessment of this patient. A comprehensive ED assessment and evaluation of the patient, analysis of all test results, and completion of the medical deci nneka-making process will be conducted by additional ED providers. MSE Not Complete The medical screening exam i s not complete. Further evaluation and/or treatment is required. The patient will be re-directed to the emergency department. Presentation Chief Complaint Flank pain L Hx Obtained From Patient )( Sudden in Onset? Yes Onset Occurred ONE MONTH AGO Symptom Duration Since onset, Constant Progression since Onset Gradually worsening Context of Onset Spontaneous Caused by No trauma by history Location Flank L Quality Sharp, Stabbing Radiation No: Does not radiate. Severity: Onset Severe, Pain level 10 out of 10 Severity: Current Severe, Pain level 10 out of 1 0 Associated with Reports: Nausea, Vomiting. Associated Other Pt denies other symptoms Exacerbated by Nothing Relieved by Nothing Context Recent Healthcare Recent doctor visit, Previous diagnosis, Prior workup Similar Sx Previous Yes Free Text HPI Notes Free Text HPI Notes 24-year-old female with a past medical history o f kidney stones presents emergency department with co mplaint of left flank pain with nausea vomiting for the past month. Patient denies fever cough conge stion or body aches. Patient is hyperventilating and vigorously flailing arou nd in the exam chair. Review of Systems ROS Statements All systems rev neg except as marked. Focused Review of Systems Constitutional Denies: Chills, Fever, Lethargy. Ears/Nose/Throat Denies: Earache bilat, Nasal congestion, Sore th roat. GI Reports: Nausea, Vomiting. Denies: Abdominal alison n, Diarrhea. Female Reports: Flank pain, Urinary frequency, Urinary urgency. Musculoskeletal Denies: Back pain, Extremity pain. Endocrine Denies: Polyuria, Weight loss. Skin Denies: Diaphoresis, Rash. Neurologic Denies: Change LOC, Dizziness, Focal weakness, H eadache, Numbness, Slurred speech. Past Medical History - Adult Stated Complaint ABDOMINAL PAIN,HERE LAST NIGHT, RENAL STONES Allergies Coded Allergies: azithromycin (From ZITHROMAX) (Severe, SWELLS ) doxycycline (Severe, THROAT CLOSES 04/24/16) Home Medications Active Scripts LEVOFLOXACIN (LEVAQUIN) 750 MG PO DAILY LEVOFLOXACIN (LEVAQUIN) 750 MG PO DAILY #5 TABS Prov: Mayelin Tyler* 01/13/20 ACETAMINOPHEN/CODEINE (TYLENOL WITH CODE INE #3 300/30 MG) 1 TAB PO Q4H PRN PRN ACUTE PAIN ACETAMINOPHEN/CODEINE (TYLENOL WITH CODEINE #3 300/30 MG) 1 TAB PO Q4H PRN PRN ACUTE PAIN #8 TABS Prov: Mayelin Tyler* 01/13/20 KETOROLAC (TORADOL) 10 MG PO Q6H PRN PRN PAIN KETOROLAC (TORADOL) 10 MG PO Q6H PRN PRN PAIN # 20 TABS Prov: Mayelin Tyler* 01/13/20 PROMETHAZINE (PHENERGAN) 25 MG PO Q6H PRN PRN NA USEA/VOMITING PROMETHAZINE (PHENERGAN) 25 MG PO Q6H PRN PRN N AUSEA/VOMITING #10 TABS Prov: Mayelin Tyler* 01/13/20 Reported Medications acetaZOLAMIDE (DIAMOX) 250 MG PO Q8H PNV WITH FE FUMARATE/FA () 1 TAB PO JF Y Review of Nursing Notes Rev avail, and agree Past Medical History: Reports: Urinary tract infection. Alcohol Use Denies EtOH use Drug Use Denies recreational drugs Smoking status for patients 13 years old or olde r: Never Smoker Ambulatory Status Independent Physical Exam Vital Signs Vital Signs First Documented: Result Date Time Pulse Ox 74 01/13 2313 B/P 118/75 01/13 2313 B/P Mean 89.4 01/13 2313 Temp 98.2 01/13 2313 Pulse 130 01/13 2313 Resp 22 01/13 2313 Last Documented: Result Date Time Pulse Ox 74 01/13 2313 B/P 118/75 01/13 2313 B/P Mean 89.4 01/13 2313 Temp 98.2 01/13 2313 Pulse 130 01/13 2313 Resp 22 01/13 2313 Review of Vital Signs Reviewed Basic Physical Exam Basic PE NEURO: alert oriented, NEURO: gross mov ement NL Focused PE General/Const General/Const Awake, Alert Behavior Anxious, Hyperventilating, Restless. Appearance/Presentation Ill appearing/not toxic, Obese, morbidly. Negat ida: Pale, Toxic appearing. Resp/Chest Respiratory/Chest Breath sounds NL, Breath soun ds = bilat, No respiratory distress, No rales, No rhonchi, No wheezing Cardiovascular Cardiovascular Regular rhythm, Heart sounds NL, Peripheral circulation NL Heart Rate/Rhythm Tachycardia. Abdomen/GI Abdomen/GI Soft, Non-tender, No guarding, No re bound MS Back Back Inspection NL, Non-tender, No CVA tenderne ss Skin Skin Color NL, No rash, Warm, Dry, Turgor NL Genitourinary General Exam deferred Interpretation Diagnostics Lab Results Interpretation Results Laboratory Tests 01/14/20 2309: [Embedded Image Not Available] Laboratory Tests: 01/146 2309 2309 Chemistry Sodium (137 - 145 mmol/L) 140 Potassium (3.4 - 5.0 mmol/L) 3.9 Chloride (98 - 107 mmol/L) 107 Carbon Dioxide (22 - 30 mmol/L) 22 BUN (7 - 17 mg/dL) 14 Creatinine (0.5 - 1.0 mg/dL) 0.8 Glomerular Filtr Rate (>60) 94 Glucose (74 - 106 mg/dL) 86 Lactic Acid (0.7 - 2.0 mmol/L) 1.2 2.3 *H Calcium (8.4 - 10.2 mg/dL) 9.9 Total Bilirubin (0.2 - 1.3 mg/dL) 0.2 Conjugated Bilirubin (0 - 0.3 mg/dL) 0 Unconjugated Bilirubin (0 - 1.1 mg/dL) 0.1 AST (15 - 46 U/L) 30 ALT (0 - 34 U/L) 27 Total Alk Phosphatase (38 - 126 U/L) 87 Total Protein (6.3 - 8.2 g/dL) 8.1 Albumin (3.5 - 5.0 g/dL) 4.6 Serum , Qual (NEGATIVE) NEGATIVE Hematology WBC (5.0 - 12.0 x10 3/uL) 12.8 H RBC (4.20 - 5.40 x10 6/uL) 4.09 L Hgb (12.0 - 16.0 g/dL) 11.9 L Hct (36.0 - 46.0 %) 36.7 MCV (81 - 99 fL) 90 MCH (27 - 31 pg) 29.1 MCHC (33 - 37 g/dL) 32.4 L RDW (11.5 - 15.5 %) 13.5 Plt Count (130 - 400 x10 3/uL) 486 H MPV (9.4 - 16.4 fL) 9.5 Neut % (Auto) (43 - 65 %) 54.9 Lymph % (Auto) (20.5 - 45.5 %) 34.1 Whiteside % (Auto) (5.5 - 11.7 %) 6.0 Eos % (Auto) (0.9 - 2.9 %) 4.3 H Baso % (Auto) (0.2 - 1.0 %) 0.5 Neut # (Auto) (2.2 - 4.8 x10 3/uL) 7.00 H Lymph # (Auto) (1.3 - 2.9 x10 3/uL) 4.35 H Whiteside # (Auto) (0.3 - 0.8 x10 3/uL) 0.77 Eos # (Auto) (0.0 - 0.2 x10 3/uL) 0.55 H Baso # (Auto) (0.0 - 0.1 x10 3/uL) 0.06 Immature Gran % (0.0 - 2.0 %) 0.2 Nucleated RBC % (0 - 1.0 %) 0.0 Urines Urine Color (Yellow) Yellow Urine Appearance (Clear) Cloudy H Urine pH (5.0 - 8.0) 6.0 Ur Specific Calhoun (<1.030) 1.027 Urine Protein (Negative mg/dL) 30 (1+) H Urine Glucose (UA) (Negative) Negative Urine Ketones (Negative mg/dL) Negative Urine Blood (Negative) Negative Urine Nitrite (Negative) Negative Urine Bilirubin (Negative) Negative Urine Urobilinogen (Negative mg/dL) Negative Ur Leukocyte Esterase (Negative) 3+ H Urine RBC (<4 - 5 /HPF) 11-20 H Urine WBC (<4 - 5 /HPF) 21-30 H Ur Squamous Epith Cells (0 - 5 (RARE) /HPF) >25 (MANY) H Urine Bacteria (None - Rare /HPF) None Urine Mucus (<Rare /LPF) Rare H Microbiology: Date/Time Procedure - Status Source Growth 01/14 6 Urine Culture - RECD URINE 01/13 2309 Blood Culture - ORD BLOOD 01/13 2309 Blood Culture - ORD BLOOD 01/14 2308 Blood Culture - RES BLOOD 01/14 2308 Blood Culture - RES BLOOD Lab Statement Laboratory studies reviewed and considered in [facility] medical decision-making. Point of Care Testing Pulse Oximetry Pulse Ox % 98 On: Room air Interpretation Interpreted by ct Time 2309 Re-Evaluation MDM Free Text MDM Notes Free Text MDM Notes REFUSES CT SCAN, HAD ON LAST NIGHT Re-Evaluation/Progress Re-Evaluation/Progress Time of Re-Eval 0110 Re-Eval Status PT STATES SHE FEELS BETTER, DOES NT WANT ADMISSION ANYMORE. STATES SHE DOESNT HAVE A DIRECTOR AMBULATORY AND IS LEAV ING TO GO TO [place] IN THE MORNING. Plan Post Re-Eval Plan discharge Tissue Perfusion Reassessment Patient tissue perfusion reassessment completed. ED Course Medication(s) Ordered Medication(s) Ordered: Central Nervous System Agents Sig/Berenice Start time Last Medication Dose Route Stop Time Status Admin Hydrocodone Bitart/ 1 TAB Q4H PRN PRN 01/14 010 0 DCD Acetaminophen PO 01/14 0647 Morphine Sulfate 2 MG Q4H PRN PRN 01/14 0100 DC D IV 01/14 0647 Acetaminophen 650 MG Q4H PRN PRN 01/14 0048 DC D PO 01/14 0647 Hydrocodone Bitart/ 1 TAB Q4H PRN PRN 01/14 004 8 DCD Acetaminophen PO 01/14 0647 Morphine Sulfate 4 MG Q4H PRN PRN 01/14 0048 DC D IV 01/14 0647 Electrolytic, Caloric, And Alex Sig/Berenice Start time Last Medication Dose Route Stop Time Status Admin Sodium Chloride 10 ML ASDIR PRN 01/14 100 DCD IV 01/14 647 Sodium Chloride 250 ML ASDIR PRN 01/14 100 DCD IV 01/14 647 Sodium Chloride 1,000 ML .[id number] 01/14 100 DC D IV 01/14 647 Gastrointestinal Drugs Sig/Berenice Start time Last Medication Dose Route Stop Time Status Admin Ondansetron HCl 4 MG Q4H PRN PRN 01/14 0048 DCD IV 01/14 647 Other Sig/Berenice Start time Last Medication Dose Route Stop Time Status Admin Sodium Chloride 5 ML Q12HR 01/14 900 DCD IV 02/13 901 Sodium Chloride 5 ML ASDIR PRN 01/14 100 DCD IV 01/14 647 Patient Discharge Departure Vital Signs/Condition Vital Signs First Documented: Result Date Time Pulse Ox 74 01/13 2313 B/P 118/75 01/13 2313 B/P Mean 89.4 01/13 2313 Temp 98.2 01/13 2313 Pulse 130 01/13 2313 Resp 22 01/13 2313 Last Documented: Result Date Time Pulse Ox 74 01/13 2313 B/P 118/75 01/13 2313 B/P Mean 89.4 01/13 2313 Temp 98.2 01/13 2313 Pulse 130 01/13 2313 Resp 22 01/13 2313 All vital signs available at the time of this en try have been reviewed. Condition Stable Clinical Impression Clinical Impression Primary Impression: Kidney stone Secondary Impressions: Sepsis, UTI (urinary trac t infection) Disposition Decision Discharge )( Discharged to Home Yes )( Time 0110 )( Date 01/15/20 Discharge/Care Plan Counseled Regarding Diagnosis, Lab resul ts, Need for follow-up, When to return to ED (Auto) Prescriptions Current Visit Scripts TAMSULOSIN ER (FLOMAX) 0.4 MG PO DAILY TAMSULOSIN ER (FLOMAX) 0.4 MG PO DAILY #5 CAPS Discharge Note I have spoken with the patie nt and/or caregivers. I have explained the patient's condition, diagnoses and gwyn atment plan based on the information available to me at this time. I have answered the patient's and/ or caregiver's questions and addressed any concerns. The patient and/or careg martin have as good an understanding of the patient 's diagnosis, condition and treatment plan as can be expected at this point. The vital signs have bee n stable. The patient's condition is stable and appr opriate for discharge from the emergency department. The patient will pursue further outpatient evalu ation with the primary care physician or other designated or consulting phys ician as outlined in the discharge instructions. The patient and/or caregivers are agreeable to this plan of care and follow-up instructions have been exp lained in detail. The patient and/or caregivers have received these instructio ns in written format and have expressed an understanding of the discharge inst ructions. The patient and/or caregivers are aware that any significant change in condition or worsening of symptoms should prompt an immediate return to [facility] or the closest emergency department or a call to 911. Admit Note I have spoken with the patie nt and/or caregivers. I have explained the patient's condition, diagnoses and gwyn atment plan based on the information available to me at this time. I have answered the patient's and/ or caregiver's questions and addressed any concerns. The patient and/or careg martin have as good an understanding of the patient 's diagnosis, condition and treatment plan as can be expected at this point. The patient has been stabilized within the capability of the emergency department. The patient wi ll be transported for further care and management or will be moved to an observation or inpatient service. I have communicated with the staff or medical p ractitioner taking over this patient's care. Quality Measures Preg Test for Women w/Abd Pa in Female age 14-50, Complaint of abdominal pn, Any preg test ordered Jonas Lambert 01/16/20 0043: HPI- Female General Initial Greet Date/Time 01/14/20 9721 Patient Discharge Departure Supervising Physician Note MidLv Saw Pt Alone I have reviewed the PA/ADMITTING MANAGER's note and plan of car e. I was available for consultation as needed at al l times during the patient's visit in the emergency department. I agree with the clinical impression , plan and disposition. Electronically Signed by Gabrielle Osullivan o n 01/15/20 at 1816 Electronically Signed by Jonas Lambert DO on 05/05 at 0043 RPT #:[id number] END OF REPORT 2020-01-14 15:48:00-00:00 [facility] Progress Note REPORT#:[id number] REPORT STATUS: Signed DATE:01/14/20 TIME: 1548 PATIENT: NATIVIDAD KLINE UNIT #: [id number] ROOM/BED: : 95 AGE: 24 SEX: F ATTEND: Mirna Lambert ed DO ADM DT: AUTHOR: Murray Freeman [facility] * ALL edits or amendments must be made on the [employer]llie document * Pharmacy Note Medication therapy: POST DISCHARGE CULTURE REVIEW Treatment plan: cont current regimen/dose Rationale: NATIVIDAD KLINE is a 24 yea r old patient who was seen in the Emergency Room on 01/13/20 for AB PAIN. While in the ER, a BLOOD sample was collected which grew GPC IN 1/2 BLOOD CULTURE SET S. After reviewing patients chart and speaking with Dr. MARIA, it was agreed upon that the culture i s likely contaminated. No further action is needed. at 1550 RPT #:[id number] END OF REPORT 2020-01-13 18:57:00-00:00 [facility] EMERGENCY PROVIDER REPORT REPORT#:[id number] REPORT STATUS: Signed DATE:01/13/20 TIME: 185 PATIENT: NATIVIDAD KLINE UNIT #: [id number] ROOM/BED: AGE: 24 SEX: F PCP PHYS: Self Referred SERVICE DT: AUTHOR: Mayelin Tyler ADMITTING MANAGER * ALL edits or amendments must be made on the [employer] document * HPI-Abd Pain F Under 40 General Confirmed Patient Yes Patient Type New patient Initial Greet Date/Time 01/13/20 1755 PCP NONE Presentation Chief Complaint Flank pain L, Nausea, Vomiting m oderate Hx Obtained From Patient Sudden in Onset? No Onset Occurred Weeks ago Symptom Duration Since onset, Waxes and wanes Progression since Onset Intermittent Caused by No trauma by history Location Flank left Quality Same as prior, Painful Radiation No: Does not radiate. Migration/Movement None Severity: Onset Severe Severity: Current Severe Exacerbated by Nothing Relieved by Nothing Free Text HPI Notes Free Text HPI Notes 24-year-old female presents to the ER with compl aints of left flank pain with nausea and vomiting onset 1 month ago She reports that she was seen in another ER appr oximately 1 month ago and treated for a UTI and a left kidney stone She reports that she has history of kidn ey stones. She denies fever, abdominal pain, chest pain, shortness of breath, or any ot her symptoms Review of Systems ROS Statements All systems rev neg except as marked. Focused Review of Systems Constitutional Denies: Chills, Fatigue, Fever, Weakness - gener alized. Respiratory Denies: Cough, non-productiv e, Cough, productive, Dyspnea on exertion, Pleuritic pain, Shortness of breath, Wheezing. Cardiovascular Denies: Chest pain, Dyspnea on exertion, Palpita tions, Syncope. GI Reports: Nausea, Vomiting. Denies: Abdominal alison n, Constipation, Diarrhea. Female Reports: Flank pain. Denies: Dysuria, Hematuria, , Urinary frequency, Urinary urgency, Urination decreased, Urination increased. Musculoskeletal Denies: Back pain, Lumbar pain, Neck pain, Thora cic pain. Additional Review of Systems Eyes Denies: Blurred bilat, Diplopia, Dischar ge bilat, Eye pain bilat, Photophobia. Skin Denies: Diaphoresis, Erythema, Rash, Swelling. Neurologic Denies: Abnormal movement, Bladder dysfu nction, Bowel dysfunction, Generalized weakness, Headache. Psychiatric Denies: Agitation, Anxiety, Stress. Past Medical History - Adult Stated Complaint KIDNEY STONE Allergies Coded Allergies: azithromycin (From ZITHROMAX) (Severe, SWELLS ) doxycycline (Severe, THROAT CLOSES 04/24/16) Home Medications Reported Medications acetaZOLAMIDE (DIAMOX) 250 MG PO Q8H PNV WITH FE FUMARATE/FA () 1 TAB PO JF Y Review of Nursing Notes Rev avail, and agree Past Medical History: Reports: Urinary tract infection. Smoking status for patients 13 years old or olde r: Never Smoker Ambulatory Status Independent Physical Exam Vital Signs Vital Signs First Documented: Result Date Time Pulse Ox 97 01/12 1809 B/P 119/68 01/12 1809 B/P Mean 85 01/12 1809 O2 Delivery Room air 01/12 1809 Temp 36.7 01/12 1809 Pulse 141 01/12 1809 Resp 28 01/12 1809 Last Documented: Result Date Time Pulse Ox 100 01/13 1936 B/P Mean 3 01/13 1936 O2 Delivery Room air 01/13 1936 Pulse 110 01/13 1936 Resp 18 01/13 1936 B/P 119/68 01/12 1809 Temp 36.7 01/12 1809 Review of Vital Signs Reviewed Focused PE General/Const General/Const Awake, Alert, Well hydrated, Coop erative, Not toxic appearing MS Head Head Atraumatic, Normocephalic Eyes Eyes Atraumatic, PERRL, EOMI, No nystagmus, No periorbital redness, No periorbital swelling Ears/Nose/Throat Ears/Nose/Throat Atraumatic, Airway pat ent, Mucous membranes moist, No facial swelling Resp/Chest Respiratory/Chest Atraumatic, Breath sounds NL , Breath sounds = bilat, No respiratory distress Cardiovascular Cardiovascular Heart rate NL, Regular r hythm, Heart sounds NL, Cap refill not delayed, Peripheral circulation NL Abdomen/GI Abdomen/GI Atraumatic, Soft, No rebound, BS nor moactive, No distention Tenderness/Guarding/Rebound Tender flank L. MS Back Back Atraumatic, Full range of motion, No midli ne vertebral tend, No paraspinal tenderness Flank/Spine/Paraspinal Flank tender L. Skin Skin Atraumatic, Color NL, No rash, Dry, Intact , Turgor NL, No swelling Neurologic Neurologic Oriented X3, Speech NL, No motor def icits, No sensory deficits, Memory NL Additional PE MS Neck Neck Atraumatic, Supple, No meningismus, No swe lling, No midline vertebral tend Lymphatic Lymphatic No gross adenopathy Psychiatric Psychiatric Affect NL, Mood NL, Cognitive funct ion NL, Judgment/insight NL, Thought content NL Interpretation Diagnostics Lab Results Interpretation Results Laboratory Tests 01/13/201807: [Embedded Image Not Available] Laboratory Tests: 01/12 Chemistry Sodium (137 - 145 mmol/L) 138 Potassium (3.4 - 5.0 mmol/L) 3.9 Chloride (98 - 107 mmol/L) 104 Carbon Dioxide (22 - 30 mmol/L) 22 BUN (7 - 17 mg/dL) 11 Creatinine (0.5 - 1.0 mg/dL) 0.7 Glomerular Filtr Rate (>60) 109 Glucose (74 - 106 mg/dL) 99 Lactic Acid (0.7 - 2.0 mmol/L) 1.6 Calcium (8.4 - 10.2 mg/dL) 10.0 Total Bilirubin (0.2 - 1.3 mg/dL) 0.3 Conjugated Bilirubin (0 - 0.3 mg/dL) 0 Unconjugated Bilirubin (0 - 1.1 mg/dL) 0.1 AST (15 - 46 U/L) 29 ALT (0 - 34 U/L) 25 Total Alk Phosphatase (38 - 126 U/L) 96 Total Protein (6.3 - 8.2 g/dL) 8.3 H Albumin (3.5 - 5.0 g/dL) 4.9 Lipase (23 - 300 U/L) 81 Hematology WBC (5.0 - 12.0 x10 3/uL) 17.5 H RBC (4.20 - 5.40 x10 6/uL) 4.44 Hgb (12.0 - 16.0 g/dL) 12.9 Hct (36.0 - 46.0 %) 40.3 MCV (81 - 99 fL) 91 MCH (27 - 31 pg) 29.1 MCHC (33 - 37 g/dL) 32.0 L RDW (11.5 - 15.5 %) 13.3 Plt Count (130 - 400 x10 3/uL) 517 H MPV (9.4 - 16.4 fL) 9.5 Neut % (Auto) (43 - 65 %) 68.9 H Lymph % (Auto) (20.5 - 45.5 %) 21.9 Whiteside % (Auto) (5.5 - 11.7 %) 5.4 L Eos % (Auto) (0.9 - 2.9 %) 2.9 Baso % (Auto) (0.2 - 1.0 %) 0.5 Neut # (Auto) (2.2 - 4.8 x10 3/uL) 12.05 H Lymph # (Auto) (1.3 - 2.9 x10 3/uL) 3.84 H Whiteside # (Auto) (0.3 - 0.8 x10 3/uL) 0.95 H Eos # (Auto) (0.0 - 0.2 x10 3/uL) 0.51 H Baso # (Auto) (0.0 - 0.1 x10 3/uL) 0.08 Immature Gran % (0.0 - 2.0 %) 0.4 Nucleated RBC % (0 - 1.0 %) 0.0 Urines Urine Color (Yellow) Yellow Urine Appearance (Clear) Cloudy H Urine pH (5.0 - 8.0) 7.0 Ur Specific Calhoun (<1.030) 1.018 Urine Protein (Negative mg/dL) NEGATIVE Urine Glucose (UA) (Negative) Negative Urine Ketones (Negative mg/dL) Negative Urine Blood (Negative) Negative Urine Nitrite (Negative) Negative Urine Bilirubin (Negative) Negative Urine Urobilinogen (Negative mg/dL) Negative Ur Leukocyte Esterase (Negative) 1+ H Urine RBC (<4 - 5 /HPF) 0-3 Urine WBC (<4 - 5 /HPF) 6-10 H Ur Squamous Epith Cells (0 - 5 (RARE) /HPF) >25 (MANY) H Urine Bacteria (None - Rare /HPF) Rare Urine Mucus (<Rare /LPF) Rare H Urine HCG, Qual (NEGATIVE) NEGATIVE Microbiology: Date/Time Procedure - Status Source Growth 01/12 1835 Blood Culture - RECD BLOOD 01/12 1835 Blood Culture - RECD BLOOD Recent Impressions: CAT SCAN - CT ABD PELVIS W/O CONT 01/12 1815 Report Impression - Status: SIGNED Entered: 01/13/20201838 Impression: 1. There are 2 punctate 1 mm nonobstructing left renal calculi. 2. Diverticulosis without diverticulitis. Impression By: [email or web address] - Luis Neff MD Lab Imaging Statement Laboratory radiographic studies reviewed and con sidered in the medical decision-making. Point of Care Testing Pulse Oximetry Pulse Ox % 97 On: Room air Interpretation Interpreted by me, Pulse oximetr y normal Time 1905 Re-Evaluation [facility] )( Re-Evaluation/Progress #1 Text/Dict Note Patient reports that the pain has not improved s rick receiving the morphine Time of Re-Eval 1899 )( Re-Eval Status Unchanged Re-Evaluation/Progress #2 Text/Dict Note Patient would like to be discharged home. She re ports that she is from [place] and she is visiting her mom this weekend. She re ports that she was prescribed Tylenol with codeine but she did not know that s he is allowed to travel with narcotics and therefore did not bring the Tylenol with codeine with her. I told the patient that I would prescribe 2 days worth of Tylenol with codeine along with other medications for symptoms. Strict retu rn precautions provided Time of Eval 1924 Re-Eval Status Improved ED Course Medication(s) Ordered Medication(s) Ordered: Anti-Infective Agents Sig/Berenice Start time Last Medication Dose Route Stop Time Status Admin Ceftriaxone Sodium 1,000 MG X1ED STA 01/12 1830 DC 10 Sterile Water 10 ML IV 01/12 183 183 Central Nervous System Agents Sig/Berenice Start time Last Medication Dose Route Stop Time Status Admin Fentanyl Citrate 25 MCG X1ED STA 01/12 1904 DC 01/12 IV 01/12 190 1910 Morphine Sulfate 4 MG X1ED STA 01/12 183 DC 10 / IV 01/12 183 183 Ketorolac 30 MG X1ED STA 01/12 1756 DC 10 Tromethamine IV 01/12 175 1804 Electrolytic, Caloric, And Alex Sig/Berenice Start time Last Medication Dose Route Stop Time Status Admin Sodium Chloride 1,000 ML X1ED STA 01/12 1755 DC 10/30 IV 01/12 1854 1803 Gastrointestinal Drugs Sig/Berenice Start time Last Medication Dose Route Stop Time Status Admin Ondansetron HCl 4 MG X1ED STA 01/12 1756 DC 10 IV 01/12 175 180 Patient Discharge Departure Vital Signs/Condition Vital Signs First Documented: Result Date Time Pulse Ox 97 01/12 1809 B/P 119/68 01/12 1809 B/P Mean 85 01/12 1809 O2 Delivery Room air 01/12 1809 Temp 36.7 01/12 1809 Pulse 141 01/12 1809 Resp 28 01/12 1809 Last Documented: Result Date Time Pulse Ox 100 01/13 1936 B/P Mean 3 01/13 1936 O2 Delivery Room air 01/13 1936 Pulse 110 01/13 1936 Resp 18 01/13 1936 B/P 119/68 01/12 1809 Temp 36.7 01/12 1809 All vital signs available at the time of this en try have been reviewed. Condition Improved Clinical Impression Clinical Impression Primary Impression: Renal calculi Disposition Decision Discharge )( Discharged to Home Yes )( Time 1926 )( Date 01/13/20 Discharge/Care Plan Counseled Regarding Diagnosi s, Lab results, Imaging studies, Prescriptions, Need for follow-up, When to return to ED (Auto) Prescriptions Current Visit Scripts LEVOFLOXACIN (LEVAQUIN) 750 MG PO DAILY LEVOFLOXACIN (LEVAQUIN) 750 MG PO DAILY #5 TABS ACETAMINOPHEN/CODEINE (TYLENOL WITH CODE INE #3 300/30 MG) 1 TAB PO Q4H PRN PRN ACUTE PAIN ACETAMINOPHEN/CODEINE (TYLENOL WITH CODEINE #3 300/30 MG) 1 TAB PO Q4H PRN PRN ACUTE PAIN #8 TABS KETOROLAC (TORADOL) 10 MG PO Q6H PRN PRN PAIN KETOROLAC (TORADOL) 10 MG PO Q6H PRN PRN PAIN # 20 TABS PROMETHAZINE (PHENERGAN) 25 MG PO Q6H PRN PRN NA USEA/VOMITING PROMETHAZINE (PHENERGAN) 25 MG PO Q6H PRN PRN N AUSEA/VOMITING #10 TABS Prescriptions Reviewed Risks, Benefits, Alternat ida treatment Patient Instructions ED Kidney Stone w/ Colic Discharge Note I have spoken with the patie nt and/or caregivers. I have explained the patient's condition, diagnoses and gwyn atment plan based on the information available to me at this time. I have answered the patient's and/ or caregiver's questions and addressed any concerns. The patient and/or careg martin have as good an understanding of the patient 's diagnosis, condition and treatment plan as can be expected at this point. The vital signs have bee n stable. The patient's condition is stable and appr opriate for discharge from the emergency department. The patient will pursue further outpatient evalu ation with the primary care physician or other designated or consulting phys ician as outlined in the discharge instructions. The patient and/or caregivers are agreeable to this plan of care and follow-up instructions have been exp lained in detail. The patient and/or caregivers have received these instructio ns in written format and have expressed an understanding of the discharge inst ructions. The patient and/or caregivers are aware that any significant change in condition or worsening of symptoms should prompt an immediate return to [facility] or the closest emergency department or a call to 911. at 0145 RPT #:[id number] END OF REPORT 2020-01-13 18:57:00-00:00 [facility] EMERGENCY PROVIDER REPORT REPORT#:[id number] REPORT STATUS: Signed DATE:01/13/20 TIME: 1856 PATIENT: NATIVIDAD KLINE UNIT #: [id number] ROOM/BED: AGE: 24 SEX: F PCP PHYS: Self Referred SERVICE DT: AUTHOR: Mayelin Tyler ADMITTING MANAGER * ALL edits or amendments must be made on the [employer]/computer document * Mayelin Tyler 01/13/201856: HPI-Abd Pain F Under 40 General Confirmed Patient Yes Patient Type New patient PCP NONE Presentation Chief Complaint Flank pain L, Nausea, Vomiting m oderate Hx Obtained From Patient Sudden in Onset? No Onset Occurred Weeks ago Symptom Duration Since onset, Waxes and wanes Progression since Onset Intermittent Caused by No trauma by history Location Flank left Quality Same as prior, Painful Radiation No: Does not radiate. Migration/Movement None Severity: Onset Severe Severity: Current Severe Exacerbated by Nothing Relieved by Nothing Free Text HPI Notes Free Text HPI Notes 24-year-old female presents to the ER with compl aints of left flank pain with nausea and vomiting onset 1 month ago She reports that she was seen in another ER appr oximately 1 month ago and treated for a UTI and a left kidney stone She reports that she has history of kidn ey stones. She denies fever, abdominal pain, chest pain, shortness of breath, or any ot her symptoms Review of Systems ROS Statements All systems rev neg except as marked. Focused Review of Systems Constitutional Denies: Chills, Fatigue, Fever, Weakness - gener alized. Respiratory Denies: Cough, non-productiv e, Cough, productive, Dyspnea on exertion, Pleuritic pain, Shortness of breath, Wheezing. Cardiovascular Denies: Chest pain, Dyspnea on exertion, Palpita tions, Syncope. GI Reports: Nausea, Vomiting. Denies: Abdominal alison n, Constipation, Diarrhea. Female Reports: Flank pain. Denies: Dysuria, Hematuria, , Urinary frequency, Urinary urgency, Urination decreased, Urination increased. Musculoskeletal Denies: Back pain, Lumbar pain, Neck pain, Thora cic pain. Additional Review of Systems Eyes Denies: Blurred bilat, Diplopia, Dischar ge bilat, Eye pain bilat, Photophobia. Skin Denies: Diaphoresis, Erythema, Rash, Swelling. Neurologic Denies: Abnormal movement, Bladder dysfu nction, Bowel dysfunction, Generalized weakness, Headache. Psychiatric Denies: Agitation, Anxiety, Stress. Past Medical History - Adult Stated Complaint KIDNEY STONE Allergies Coded Allergies: azithromycin (From ZITHROMAX) (Severe, SWELLS ) doxycycline (Severe, THROAT CLOSES 04/24/16) Review of Nursing Notes Rev avail, and agree Past Medical History: Reports: Urinary tract infection. Smoking status for patients 13 years old or olde r: Never Smoker Ambulatory Status Independent Physical Exam Vital Signs Vital Signs First Documented: Result Date Time Pulse Ox 97 01/12 1809 B/P 119/68 01/12 1809 B/P Mean 85 01/12 1809 O2 Delivery Room air 01/12 1809 Temp 98.0 01/12 1809 Pulse 141 01/12 1809 Resp 28 01/12 1809 Last Documented: Result Date Time Pulse Ox 100 01/13 1936 B/P Mean 3 01/13 1936 O2 Delivery Room air 01/13 1936 Pulse 110 01/13 1936 Resp 18 01/13 1936 B/P 119/68 01/12 1809 Temp 98.0 01/12 1809 Review of Vital Signs Reviewed Focused PE General/Const General/Const Awake, Alert, Well hydrated, Coop erative, Not toxic appearing MS Head Head Atraumatic, Normocephalic Eyes Eyes Atraumatic, PERRL, EOMI, No nystagmus, No periorbital redness, No periorbital swelling Ears/Nose/Throat Ears/Nose/Throat Atraumatic, Airway pat ent, Mucous membranes moist, No facial swelling Resp/Chest Respiratory/Chest Atraumatic, Breath sounds NL, Breath sounds = bilat, No respiratory distress Cardiovascular Cardiovascular Heart rate NL, Regular r hythm, Heart sounds NL, Cap refill not delayed, Peripheral circulation NL Abdomen/GI Abdomen/GI Atraumatic, Soft, No rebound, BS nor moactive, No distention Tenderness/Guarding/Rebound Tender flank L. MS Back Back Atraumatic, Full range of motion, No midli ne vertebral tend, No paraspinal tenderness Flank/Spine/Paraspinal Flank tender L. Skin Skin Atraumatic, Color NL, No rash, Dry, Intact , Turgor NL, No swelling Neurologic Neurologic Oriented X3, Speech NL, No motor def icits, No sensory deficits, Memory NL Additional PE MS Neck Neck Atraumatic, Supple, No meningismus, No swe lling, No midline vertebral tend Lymphatic Lymphatic No gross adenopathy Psychiatric Psychiatric Affect NL, Mood NL, Cognitive funct ion NL, Judgment/insight NL, Thought content NL Interpretation Diagnostics Lab Results Interpretation Results Laboratory Tests 01/13/201807: [Embedded Image Not Available] Laboratory Tests: 01/12 Chemistry Sodium (137 - 145 mmol/L) 138 Potassium (3.4 - 5.0 mmol/L) 3.9 Chloride (98 - 107 mmol/L) 104 Carbon Dioxide (22 - 30 mmol/L) 22 BUN (7 - 17 mg/dL) 11 Creatinine (0.5 - 1.0 mg/dL) 0.7 Glomerular Filtr Rate (>60) 109 Glucose (74 - 106 mg/dL) 99 Lactic Acid (0.7 - 2.0 mmol/L) 1.6 Calcium (8.4 - 10.2 mg/dL) 10.0 Total Bilirubin (0.2 - 1.3 mg/dL) 0.3 Conjugated Bilirubin (0 - 0.3 mg/dL) 0 Unconjugated Bilirubin (0 - 1.1 mg/dL) 0.1 AST (15 - 46 U/L) 29 ALT (0 - 34 U/L) 25 Total Alk Phosphatase (38 - 126 U/L) 96 Total Protein (6.3 - 8.2 g/dL) 8.3 H Albumin (3.5 - 5.0 g/dL) 4.9 Lipase (23 - 300 U/L) 81 Hematology WBC (5.0 - 12.0 x10 3/uL) 17.5 H RBC (4.20 - 5.40 x10 6/uL) 4.44 Hgb (12.0 - 16.0 g/dL) 12.9 Hct (36.0 - 46.0 %) 40.3 MCV (81 - 99 fL) 91 MCH (27 - 31 pg) 29.1 MCHC (33 - 37 g/dL) 32.0 L RDW (11.5 - 15.5 %) 13.3 Plt Count (130 - 400 x10 3/uL) 517 H MPV (9.4 - 16.4 fL) 9.5 Neut % (Auto) (43 - 65 %) 68.9 H Lymph % (Auto) (20.5 - 45.5 %) 21.9 Whiteside % (Auto) (5.5 - 11.7 %) 5.4 L Eos % (Auto) (0.9 - 2.9 %) 2.9 Baso % (Auto) (0.2 - 1.0 %) 0.5 Neut # (Auto) (2.2 - 4.8 x10 3/uL) 12.05 H Lymph # (Auto) (1.3 - 2.9 x10 3/uL) 3.84 H Whiteside # (Auto) (0.3 - 0.8 x10 3/uL) 0.95 H Eos # (Auto) (0.0 - 0.2 x10 3/uL) 0.51 H Baso # (Auto) (0.0 - 0.1 x10 3/uL) 0.08 Immature Gran % (0.0 - 2.0 %) 0.4 Nucleated RBC % (0 - 1.0 %) 0.0 Urines Urine Color (Yellow) Yellow Urine Appearance (Clear) Cloudy H Urine pH (5.0 - 8.0) 7.0 Ur Specific Calhoun (<1.030) 1.018 Urine Protein (Negative mg/dL) NEGATIVE Urine Glucose (UA) (Negative) Negative Urine Ketones (Negative mg/dL) Negative Urine Blood (Negative) Negative Urine Nitrite (Negative) Negative Urine Bilirubin (Negative) Negative Urine Urobilinogen (Negative mg/dL) Negative Ur Leukocyte Esterase (Negative) 1+ H Urine RBC (<4 - 5 /HPF) 0-3 Urine WBC (<4 - 5 /HPF) 6-10 H Ur Squamous Epith Cells (0 - 5 (RARE) /HPF) >25 (MANY) H Urine Bacteria (None - Rare /HPF) Rare Urine Mucus (<Rare /LPF) Rare H Urine HCG, Qual (NEGATIVE) NEGATIVE Microbiology: Date/Time Procedure - Status Source Growth 01/12 1835 Blood Culture - RES BLOOD 01/12 1835 Blood Culture - COMP BLOOD COAGULASE NEG STAPHYLOCOCCUS Recent Impressions: CAT SCAN - CT ABD PELVIS W/O CONT 01/12 1815 Report Impression - Status: SIGNED Entered: 01/13/20201838 Impression: 1. There are 2 punctate 1 mm nonobstructing left renal calculi. 2. Diverticulosis without diverticulitis. Impression By: Luis Carrasco MD Lab Imaging Statement Laboratory radiographic studies reviewed and con sidered in the medical decision-making. Point of Care Testing Pulse Oximetry Pulse Ox % 97 On: Room air Interpretation Interpreted by me, Pulse oximetr y normal Time 1905 Re-Evaluation [facility] )( Re-Evaluation/Progress #1 Text/Dict Note Patient reports that the pain has not improved s rick receiving the morphine Time of Re-Eval 1899 )( Re-Eval Status Unchanged Re-Evaluation/Progress #2 Text/Dict Note Patient would like to be discharged home. She re ports that she is from [place] and she is visiting her mom this weekend. She re ports that she was prescribed Tylenol with codeine but she did not know that s he is allowed to travel with narcotics and therefore did not bring the Tylenol with codeine with her. I told the patient that I would prescribe 2 days worth of Tylenol with codeine along with other medications for symptoms. Strict retu rn precautions provided Time of Eval 1924 Re-Eval Status Improved ED Course Medication(s) Ordered Medication(s) Ordered: Anti-Infective Agents Sig/Berenice Start time Last Medication Dose Route Stop Time Status Admin Ceftriaxone Sodium 1,000 MG X1ED STA 01/12 1830 DC 10 Sterile Water 10 ML IV 01/13 1832 183 Central Nervous System Agents Sig/Berenice Start time Last Medication Dose Route Stop Time Status Admin Fentanyl Citrate 25 MCG X1ED STA 01/12 190 DC 10/30 IV 01/12 190 1910 Morphine Sulfate 4 MG X1ED STA 01/12 183 DC 1 0/30 IV 01/13 1832 183 Ketorolac 30 MG X1ED STA 01/12 175 DC 1030 Tromethamine IV 01/12 175 180 Electrolytic, Caloric, And Alex Sig/Berenice Start time Last Medication Dose Route Stop Time Status Admin Sodium Chloride 1,000 ML X1ED STA 01/12 1755 DC 10/30 IV 01/12 1854 1803 Gastrointestinal Drugs Sig/Berenice Start time Last Medication Dose Route Stop Time Status Admin Ondansetron HCl 4 MG X1ED STA 01/13 1756 DC IV 01/12 Patient Discharge Departure Vital Signs/Condition Vital Signs First Documented: Result Date Time Pulse Ox 97 01/12 1809 B/P 119/68 01/12 1809 B/P Mean 85 01/12 1809 O2 Delivery Room air 01/12 1809 Temp 98.0 01/12 1809 Pulse 141 01/12 1809 Resp 28 01/12 1809 Last Documented: Result Date Time Pulse Ox 100 01/13 1936 B/P Mean 3 01/13 1936 O2 Delivery Room air 01/13 1936 Pulse 110 01/13 1936 Resp 18 01/13 1936 B/P 119/68 01/12 1809 Temp 98.0 01/12 1809 All vital signs available at the time of this en try have been reviewed. Condition Improved Clinical Impression Clinical Impression Primary Impression: Renal calculi Disposition Decision Discharge )( Discharged to Home Yes )( Time 1926 )( Date 01/13/20 Discharge/Care Plan Counseled Regarding Diagnosi s, Lab results, Imaging studies, Prescriptions, Need for follow-up, When to return to ED (Auto) Prescriptions Current Visit Scripts LEVOFLOXACIN (LEVAQUIN) 750 MG PO DAILY LEVOFLOXACIN (LEVAQUIN) 750 MG PO DAILY #5 TABS ACETAMINOPHEN/CODEINE (TYLENOL WITH CODE INE #3 300/30 MG) 1 TAB PO Q4H PRN PRN ACUTE PAIN ACETAMINOPHEN/CODEINE (TYLENOL WITH CODEINE #3 300/30 MG) 1 TAB PO Q4H PRN PRN ACUTE PAIN #8 TABS KETOROLAC (TORADOL) 10 MG PO Q6H PRN PRN PAIN KETOROLAC (TORADOL) 10 MG PO Q6H PRN PRN PAIN # 20 TABS PROMETHAZINE (PHENERGAN) 25 MG PO Q6H PRN PRN NA USEA/VOMITING PROMETHAZINE (PHENERGAN) 25 MG PO Q6H PRN PRN N AUSEA/VOMITING #10 TABS Prescriptions Reviewed Risks, Benefits, Alternat ida treatment Patient Instructions ED Kidney Stone w/ Colic Discharge Note I have spoken with the patie nt and/or caregivers. I have explained the patient's condition, diagnoses and gwyn atment plan based on the information available to me at this time. I have answered the patient's and/ or caregiver's questions and addressed any concerns. The patient and/or careg martin have as good an understanding of the patient 's diagnosis, condition and treatment plan as can be expected at this point. The vital signs have bee n stable. The patient's condition is stable and appr opriate for discharge from the emergency department. The patient will pursue further outpatient evalu ation with the primary care physician or other designated or consulting phys ician as outlined in the discharge instructions. The patient and/or caregivers are agreeable to this plan of care and follow-up instructions have been exp lained in detail. The patient and/or caregivers have received these instructio ns in written format and have expressed an understanding of the discharge inst ructions. The patient and/or caregivers are aware that any significant change in condition or worsening of symptoms should prompt an immediate return to [facility] or the closest emergency department or a call to 911. Jonas Lambert 01/15/20 1646: HPI-Abd Pain F Under 40 General Initial Greet Date/Time 01/13/20 1755 Risk-Abd Pain F Under 40 )( Ectopic Risk factors reviewed Past Medical History - Adult Home Medications Active Scripts TAMSULOSIN ER (FLOMAX) 0.4 MG PO DAILY TAMSULOSIN ER (FLOMAX) 0.4 MG PO DAILY #5 CAPS Prov: 01/15/20 Reported Medications acetaZOLAMIDE (DIAMOX) 250 MG PO Q8H PNV WITH FE FUMARATE/FA () 1 TAB PO JF Y at 0145 RPT #:[id number] END OF REPORT 2020-01-13 18:57:00-00:00 [facility] EMERGENCY PROVIDER REPORT REPORT#:[id number] REPORT STATUS: Signed DATE:01/13/20 TIME: 1856 PATIENT: NATIVIDAD KLINE UNIT #: [id number] ROOM/BED: AGE: 24 SEX: F PCP PHYS: Self Referred SERVICE DT: AUTHOR: Mayelin Tyler NP * ALL edits or amendments must be made on the el [employer]/computer document * Mayelin Tyler 01/13/20 1857: HPI-Abd Pain F Under 40 General Confirmed Patient Yes Patient Type New patient PCP NONE Presentation Chief Complaint Flank pain L, Nausea, Vomiting m oderate Hx Obtained From Patient Sudden in Onset? No Onset Occurred Weeks ago Symptom Duration Since onset, Waxes and wanes Progression since Onset Intermittent Caused by No trauma by history Location Flank left Quality Same as prior, Painful Radiation No: Does not radiate. Migration/Movement None Severity: Onset Severe Severity: Current Severe Exacerbated by Nothing Relieved by Nothing Free Text HPI Notes Free Text HPI Notes 24-year-old female presents to the ER with compl aints of left flank pain with nausea and vomiting onset 1 month ago She reports that she was seen in another ER appr oximately 1 month ago and treated for a UTI and a left kidney stone She reports that she has history of kidn ey stones. She denies fever, abdominal pain, chest pain, shortness of breath, or any ot her symptoms Review of Systems ROS Statements All systems rev neg except as marked. Focused Review of Systems Constitutional Denies: Chills, Fatigue, Fever, Weakness - gener alized. Respiratory Denies: Cough, non-productiv e, Cough, productive, Dyspnea on exertion, Pleuritic pain, Shortness of breath, Wheezing. Cardiovascular Denies: Chest pain, Dyspnea on exertion, Palpita tions, Syncope. GI Reports: Nausea, Vomiting. Denies: Abdominal alison n, Constipation, Diarrhea. Female Reports: Flank pain. Denies: Dysuria, Hematuria, , Urinary frequency, Urinary urgency, Urination decreased, Urination increased. Musculoskeletal Denies: Back pain, Lumbar pain, Neck pain, Thora cic pain. Additional Review of Systems Eyes Denies: Blurred bilat, Diplopia, Dischar ge bilat, Eye pain bilat, Photophobia. Skin Denies: Diaphoresis, Erythema, Rash, Swelling. Neurologic Denies: Abnormal movement, Bladder dysfu nction, Bowel dysfunction, Generalized weakness, Headache. Psychiatric Denies: Agitation, Anxiety, Stress. Past Medical History - Adult Stated Complaint KIDNEY STONE Allergies Coded Allergies: azithromycin (From ZITHROMAX) (Severe, SWELLS ) doxycycline (Severe, THROAT CLOSES 04/24/16) Review of Nursing Notes Rev avail, and agree Past Medical History: Reports: Urinary tract infection. Smoking status for patients 13 years old or olde r: Never Smoker Ambulatory Status Independent Physical Exam Vital Signs Vital Signs First Documented: Result Date Time Pulse Ox 97 01/12 1809 B/P 119/68 01/12 1809 B/P Mean 85 01/12 1809 O2 Delivery Room air 01/12 1809 Temp 98.0 01/12 1809 Pulse 141 01/12 1809 Resp 28 01/12 1809 Last Documented: Result Date Time Pulse Ox 100 01/13 1936 B/P Mean 3 01/13 1936 O2 Delivery Room air 01/13 1936 Pulse 110 01/13 1936 Resp 18 01/13 1936 B/P 119/68 01/12 1809 Temp 98.0 01/12 1809 Review of Vital Signs Reviewed Focused PE General/Const General/Const Awake, Alert, Well hydrated, Coop erative, Not toxic appearing MS Head Head Atraumatic, Normocephalic Eyes Eyes Atraumatic, PERRL, EOMI, No nystagmus, No periorbital redness, No periorbital swelling Ears/Nose/Throat Ears/Nose/Throat Atraumatic, Airway pat ent, Mucous membranes moist, No facial swelling Resp/Chest Respiratory/Chest Atraumatic, Breath sounds NL, Breath sounds = bilat, No respiratory distress Cardiovascular Cardiovascular Heart rate NL, Regular r hythm, Heart sounds NL, Cap refill not delayed, Peripheral circulation NL Abdomen/GI Abdomen/GI Atraumatic, Soft, No rebound, BS nor moactive, No distention Tenderness/Guarding/Rebound Tender flank L. MS Back Back Atraumatic, Full range of motion, No midli ne vertebral tend, No paraspinal tenderness Flank/Spine/Paraspinal Flank tender L. Skin Skin Atraumatic, Color NL, No rash, Dry, Intact , Turgor NL, No swelling Neurologic Neurologic Oriented X3, Speech NL, No motor def icits, No sensory deficits, Memory NL Additional PE MS Neck Neck Atraumatic, Supple, No meningismus, No swe lling, No midline vertebral tend Lymphatic Lymphatic No gross adenopathy Psychiatric Psychiatric Affect NL, Mood NL, Cognitive funct ion NL, Judgment/insight NL, Thought content NL Interpretation Diagnostics Lab Results Interpretation Results Laboratory Tests 01/13/201807: [Embedded Image Not Available] Laboratory Tests: 01/12 01/12 1835 1808 Chemistry Sodium (137 - 145 mmol/L) 138 Potassium (3.4 - 5.0 mmol/L) 3.9 Chloride (98 - 107 mmol/L) 104 Carbon Dioxide (22 - 30 mmol/L) 22 BUN (7 - 17 mg/dL) 11 Creatinine (0.5 - 1.0 mg/dL) 0.7 Glomerular Filtr Rate (>60) 109 Glucose (74 - 106 mg/dL) 99 Lactic Acid (0.7 - 2.0 mmol/L) 1.6 Calcium (8.4 - 10.2 mg/dL) 10.0 Total Bilirubin (0.2 - 1.3 mg/dL) 0.3 Conjugated Bilirubin (0 - 0.3 mg/dL) 0 Unconjugated Bilirubin (0 - 1.1 mg/dL) 0.1 AST (15 - 46 U/L) 29 ALT (0 - 34 U/L) 25 Total Alk Phosphatase (38 - 126 U/L) 96 Total Protein (6.3 - 8.2 g/dL) 8.3 H Albumin (3.5 - 5.0 g/dL) 4.9 Lipase (23 - 300 U/L) 81 Hematology WBC (5.0 - 12.0 x10 3/uL) 17.5 H RBC (4.20 - 5.40 x10 6/uL) 4.44 Hgb (12.0 - 16.0 g/dL) 12.9 Hct (36.0 - 46.0 %) 40.3 MCV (81 - 99 fL) 91 MCH (27 - 31 pg) 29.1 MCHC (33 - 37 g/dL) 32.0 L RDW (11.5 - 15.5 %) 13.3 Plt Count (130 - 400 x10 3/uL) 517 H MPV (9.4 - 16.4 fL) 9.5 Neut % (Auto) (43 - 65 %) 68.9 H Lymph % (Auto) (20.5 - 45.5 %) 21.9 Whiteside % (Auto) (5.5 - 11.7 %) 5.4 L Eos % (Auto) (0.9 - 2.9 %) 2.9 Baso % (Auto) (0.2 - 1.0 %) 0.5 Neut # (Auto) (2.2 - 4.8 x10 3/uL) 12.05 H Lymph # (Auto) (1.3 - 2.9 x10 3/uL) 3.84 H Whiteside # (Auto) (0.3 - 0.8 x10 3/uL) 0.95 H Eos # (Auto) (0.0 - 0.2 x10 3/uL) 0.51 H Baso # (Auto) (0.0 - 0.1 x10 3/uL) 0.08 Immature Gran % (0.0 - 2.0 %) 0.4 Nucleated RBC % (0 - 1.0 %) 0.0 Urines Urine Color (Yellow) Yellow Urine Appearance (Clear) Cloudy H Urine pH (5.0 - 8.0) 7.0 Ur Specific Calhoun (<1.030) 1.018 Urine Protein (Negative mg/dL) NEGATIVE Urine Glucose (UA) (Negative) Negative Urine Ketones (Negative mg/dL) Negative Urine Blood (Negative) Negative Urine Nitrite (Negative) Negative Urine Bilirubin (Negative) Negative Urine Urobilinogen (Negative mg/dL) Negative Ur Leukocyte Esterase (Negative) 1+ H Urine RBC (<4 - 5 /HPF) 0-3 Urine WBC (<4 - 5 /HPF) 6-10 H Ur Squamous Epith Cells (0 - 5 (RARE) /HPF) >25 (MANY) H Urine Bacteria (None - Rare /HPF) Rare Urine Mucus (<Rare /LPF) Rare H Urine HCG, Qual (NEGATIVE) NEGATIVE Microbiology: Date/Time Procedure - Status Source Growth 01/12 1835 Blood Culture - RES BLOOD 01/12 1835 Blood Culture - COMP BLOOD COAGULASE NEG STAPHYLOCOCCUS Recent Impressions: CAT SCAN - CT ABD PELVIS W/O CONT 01/12 1815 Report Impression - Status: SIGNED Entered: 01/13/20201838 Impression: 1. There are 2 punctate 1 mm nonobstructing left renal calculi. 2. Diverticulosis without diverticulitis. Impression By: [email or web address] - Luis Neff MD Lab Imaging Statement Laboratory radiographic studies reviewed and con sidered in the medical decision-making. Point of Care Testing Pulse Oximetry Pulse Ox % 97 On: Room air Interpretation Interpreted by me, Pulse oximetr y normal Time 1905 Re-Evaluation [facility] )( Re-Evaluation/Progress #1 Text/Dict Note Patient reports that the pain has not improved s rick receiving the morphine Time of Re-Eval 1899 )( Re-Eval Status Unchanged Re-Evaluation/Progress #2 Text/Dict Note Patient would like to be discharged home. She re ports that she is from [place] and she is visiting her mom this weekend. She re ports that she was prescribed Tylenol with codeine but she did not know that s he is allowed to travel with narcotics and therefore did not bring the Tylenol with codeine with her. I told the patient that I would prescribe 2 days worth of Tylenol with codeine along with other medications for symptoms. Strict retu rn precautions provided Time of Eval 1924 Re-Eval Status Improved ED Course Medication(s) Ordered Medication(s) Ordered: Anti-Infective Agents Sig/Berenice Start time Last Medication Dose Route Stop Time Status Admin Ceftriaxone Sodium 1,000 MG X1ED STA 01/12 1830 DC 10 Sterile Water 10 ML IV 01/12 183 1836 Central Nervous System Agents Sig/Berenice Start time Last Medication Dose Route Stop Time Status Admin Fentanyl Citrate 25 MCG X1ED STA 01/12 1904 DC 10/30 IV 10 1905 1910 Morphine Sulfate 4 MG X1ED STA 01/12 1831 DC 10 /30 IV 01/12 1832 1836 Ketorolac 30 MG X1ED STA 01/12 1756 DC 10/30 Tromethamine IV 01/12 1757 1804 Electrolytic, Caloric, And Alex Sig/Berenice Start time Last Medication Dose Route Stop Time Status Admin Sodium Chloride 1,000 ML X1ED STA 01/12 1755 DC 10/30 IV 01/12 1854 1803 Gastrointestinal Drugs Sig/Berenice Start time Last Medication Dose Route Stop Time Status Admin Ondansetron HCl 4 MG X1ED STA 01/12 1756 DC 10/ 30 IV 10 1757 1804 Patient Discharge Departure Vital Signs/Condition Vital Signs First Documented: Result Date Time Pulse Ox 97 01/12 180 B/P 119/68 01/12 180 B/P Mean 85 01/12 1809 O2 Delivery Room air 01/12 1809 Temp 98.0 01/12 1809 Pulse 141 01/12 180 Resp 28 01/12 1809 Last Documented: Result Date Time Pulse Ox 100 01/13 1936 B/P Mean 3 01/13 1936 O2 Delivery Room air 01/13 1936 Pulse 110 01/13 1936 Resp 18 01/13 1936 B/P 119/68 01/12 1809 Temp 98.0 01/12 1809 All vital signs available at the time of this en try have been reviewed. Condition Improved Clinical Impression Clinical Impression Primary Impression: Renal calculi Disposition Decision Discharge )( Discharged to Home Yes )( Time 1926 )( Date 01/13/20 Discharge/Care Plan Counseled Regarding Diagnosi s, Lab results, Imaging studies, Prescriptions, Need for follow-up, When to return to ED (Auto) Prescriptions Current Visit Scripts LEVOFLOXACIN (LEVAQUIN) 750 MG PO DAILY LEVOFLOXACIN (LEVAQUIN) 750 MG PO DAILY #5 TABS ACETAMINOPHEN/CODEINE (TYLENOL WITH CODE INE #3 300/30 MG) 1 TAB PO Q4H PRN PRN ACUTE PAIN ACETAMINOPHEN/CODEINE (TYLENOL WITH CODEINE #3 300/30 MG) 1 TAB PO Q4H PRN PRN ACUTE PAIN #8 TABS KETOROLAC (TORADOL) 10 MG PO Q6H PRN PRN PAIN KETOROLAC (TORADOL) 10 MG PO Q6H PRN PRN PAIN # 20 TABS PROMETHAZINE (PHENERGAN) 25 MG PO Q6H PRN PRN NA USEA/VOMITING PROMETHAZINE (PHENERGAN) 25 MG PO Q6H PRN PRN N AUSEA/VOMITING #10 TABS Prescriptions Reviewed Risks, Benefits, Alternat ida treatment Patient Instructions ED Kidney Stone w/ Colic Discharge Note I have spoken with the patie nt and/or caregivers. I have explained the patient's condition, diagnoses and gwyn atment plan based on the information available to me at this time. I have answered the patient's and/ or caregiver's questions and addressed any concerns. The patient and/or careg martin have as good an understanding of the patient 's diagnosis, condition and treatment plan as can be expected at this point. The vital signs have bee n stable. The patient's condition is stable and appr opriate for discharge from the emergency department. The patient will pursue further outpatient evalu ation with the primary care physician or other designated or consulting phys ician as outlined in the discharge instructions. The patient and/or caregivers are agreeable to this plan of care and follow-up instructions have been exp lained in detail. The patient and/or caregivers have received these instructio ns in written format and have expressed an understanding of the discharge inst ructions. The patient and/or caregivers are aware that any significant change in condition or worsening of symptoms should prompt an immediate return to [facility] or the closest emergency department or a call to 911. Jonas Lambert 01/15/20 1646: HPI-Abd Pain F Under 40 General Initial Greet Date/Time 01/13/20 1755 Risk-Abd Pain F Under 40 )( Ectopic Risk factors reviewed Past Medical History - Adult Home Medications Active Scripts TAMSULOSIN ER (FLOMAX) 0.4 MG PO DAILY TAMSULOSIN ER (FLOMAX) 0.4 MG PO DAILY #5 CAPS Prov: 01/15/20 Reported Medications acetaZOLAMIDE (DIAMOX) 250 MG PO Q8H PNV WITH FE FUMARATE/FA () 1 TAB PO JF Y at 0145 RPT #:[id number] END OF REPORT 2020-01-13 18:57:00-00:00 [facility] EMERGENCY PROVIDER REPORT REPORT#:[id number] REPORT STATUS: Signed DATE:01/13/20 TIME: 1856 PATIENT: NATIVIDAD KLINE UNIT #: [id number] ROOM/BED: AGE: 24 SEX: F PCP PHYS: Self Referred SERVICE DT: AUTHOR: Mayelin Tyler NP * ALL edits or amendments must be made on the [employer]/computer document * Mayelin Tyler 01/13/201856: HPI-Abd Pain F Under 40 General Confirmed Patient Yes Patient Type New patient PCP NONE Presentation Chief Complaint Flank pain L, Nausea, Vomiting m oderate Hx Obtained From Patient Sudden in Onset? No Onset Occurred Weeks ago Symptom Duration Since onset, Waxes and wanes Progression since Onset Intermittent Caused by No trauma by history Location Flank left Quality Same as prior, Painful Radiation No: Does not radiate. Migration/Movement None Severity: Onset Severe Severity: Current Severe Exacerbated by Nothing Relieved by Nothing Free Text HPI Notes Free Text HPI Notes 24-year-old female presents to the ER with compl aints of left flank pain with nausea and vomiting onset 1 month ago She reports that she was seen in another ER appr oximately 1 month ago and treated for a UTI and a left kidney stone She reports that she has history of kidn ey stones. She denies fever, abdominal pain, chest pain, shortness of breath, or any ot her symptoms Review of Systems ROS Statements All systems rev neg except as marked. Focused Review of Systems Constitutional Denies: Chills, Fatigue, Fever, Weakness - gener alized. Respiratory Denies: Cough, non-productiv e, Cough, productive, Dyspnea on exertion, Pleuritic pain, Shortness of breath, Wheezing. Cardiovascular Denies: Chest pain, Dyspnea on exertion, Palpita tions, Syncope. GI Reports: Nausea, Vomiting. Denies: Abdominal alison n, Constipation, Diarrhea. Female Reports: Flank pain. Denies: Dysuria, Hematuria, , Urinary frequency, Urinary urgency, Urination decreased, Urination increased. Musculoskeletal Denies: Back pain, Lumbar pain, Neck pain, Thora cic pain. Additional Review of Systems Eyes Denies: Blurred bilat, Diplopia, Dischar ge bilat, Eye pain bilat, Photophobia. Skin Denies: Diaphoresis, Erythema, Rash, Swelling. Neurologic Denies: Abnormal movement, Bladder dysfu nction, Bowel dysfunction, Generalized weakness, Headache. Psychiatric Denies: Agitation, Anxiety, Stress. Past Medical History - Adult Stated Complaint KIDNEY STONE Allergies Coded Allergies: azithromycin (From ZITHROMAX) (Severe, SWELLS ) doxycycline (Severe, THROAT CLOSES 04/24/16) Review of Nursing Notes Rev avail, and agree Past Medical History: Reports: Urinary tract infection. Smoking status for patients 13 years old or olde r: Never Smoker Ambulatory Status Independent Physical Exam Vital Signs Vital Signs First Documented: Result Date Time Pulse Ox 97 01/12 1809 B/P 119/68 01/12 1809 B/P Mean 85 01/12 1809 O2 Delivery Room air 01/12 1809 Temp 98.0 01/12 1809 Pulse 141 01/12 1809 Resp 28 01/12 1809 Last Documented: Result Date Time Pulse Ox 100 01/13 1936 B/P Mean 3 01/13 1936 O2 Delivery Room air 01/13 1936 Pulse 110 01/13 1936 Resp 18 01/13 1936 B/P 119/68 01/12 1809 Temp 98.0 01/12 1809 Review of Vital Signs Reviewed Focused PE General/Const General/Const Awake, Alert, Well hydrated, Coop erative, Not toxic appearing MS Head Head Atraumatic, Normocephalic Eyes Eyes Atraumatic, PERRL, EOMI, No nystagmus, No periorbital redness, No periorbital swelling Ears/Nose/Throat Ears/Nose/Throat Atraumatic, Airway pat ent, Mucous membranes moist, No facial swelling Resp/Chest Respiratory/Chest Atraumatic, Breath sounds NL, Breath sounds = bilat, No respiratory distress Cardiovascular Cardiovascular Heart rate NL, Regular r hythm, Heart sounds NL, Cap refill not delayed, Peripheral circulation NL Abdomen/GI Abdomen/GI Atraumatic, Soft, No rebound, BS nor moactive, No distention Tenderness/Guarding/Rebound Tender flank L. MS Back Back Atraumatic, Full range of motion, No midli ne vertebral tend, No paraspinal tenderness Flank/Spine/Paraspinal Flank tender L. Skin Skin Atraumatic, Color NL, No rash, Dry, Intact , Turgor NL, No swelling Neurologic Neurologic Oriented X3, Speech NL, No motor def icits, No sensory deficits, Memory NL Additional PE MS Neck Neck Atraumatic, Supple, No meningismus, No swe lling, No midline vertebral tend Lymphatic Lymphatic No gross adenopathy Psychiatric Psychiatric Affect NL, Mood NL, Cognitive funct ion NL, Judgment/insight NL, Thought content NL Interpretation Diagnostics Lab Results Interpretation Results Laboratory Tests 01/13/201807: [Embedded Image Not Available] Laboratory Tests: 01/12 Chemistry Sodium (137 - 145 mmol/L) 138 Potassium (3.4 - 5.0 mmol/L) 3.9 Chloride (98 - 107 mmol/L) 104 Carbon Dioxide (22 - 30 mmol/L) 22 BUN (7 - 17 mg/dL) 11 Creatinine (0.5 - 1.0 mg/dL) 0.7 Glomerular Filtr Rate (>60) 109 Glucose (74 - 106 mg/dL) 99 Lactic Acid (0.7 - 2.0 mmol/L) 1.6 Calcium (8.4 - 10.2 mg/dL) 10.0 Total Bilirubin (0.2 - 1.3 mg/dL) 0.3 Conjugated Bilirubin (0 - 0.3 mg/dL) 0 Unconjugated Bilirubin (0 - 1.1 mg/dL) 0.1 AST (15 - 46 U/L) 29 ALT (0 - 34 U/L) 25 Total Alk Phosphatase (38 - 126 U/L) 96 Total Protein (6.3 - 8.2 g/dL) 8.3 H Albumin (3.5 - 5.0 g/dL) 4.9 Lipase (23 - 300 U/L) 81 Hematology WBC (5.0 - 12.0 x10 3/uL) 17.5 H RBC (4.20 - 5.40 x10 6/uL) 4.44 Hgb (12.0 - 16.0 g/dL) 12.9 Hct (36.0 - 46.0 %) 40.3 MCV (81 - 99 fL) 91 MCH (27 - 31 pg) 29.1 MCHC (33 - 37 g/dL) 32.0 L RDW (11.5 - 15.5 %) 13.3 Plt Count (130 - 400 x10 3/uL) 517 H MPV (9.4 - 16.4 fL) 9.5 Neut % (Auto) (43 - 65 %) 68.9 H Lymph % (Auto) (20.5 - 45.5 %) 21.9 Whiteside % (Auto) (5.5 - 11.7 %) 5.4 L Eos % (Auto) (0.9 - 2.9 %) 2.9 Baso % (Auto) (0.2 - 1.0 %) 0.5 Neut # (Auto) (2.2 - 4.8 x10 3/uL) 12.05 H Lymph # (Auto) (1.3 - 2.9 x10 3/uL) 3.84 H Whiteside # (Auto) (0.3 - 0.8 x10 3/uL) 0.95 H Eos # (Auto) (0.0 - 0.2 x10 3/uL) 0.51 H Baso # (Auto) (0.0 - 0.1 x10 3/uL) 0.08 Immature Gran % (0.0 - 2.0 %) 0.4 Nucleated RBC % (0 - 1.0 %) 0.0 Urines Urine Color (Yellow) Yellow Urine Appearance (Clear) Cloudy H Urine pH (5.0 - 8.0) 7.0 Ur Specific Calhoun (<1.030) 1.018 Urine Protein (Negative mg/dL) NEGATIVE Urine Glucose (UA) (Negative) Negative Urine Ketones (Negative mg/dL) Negative Urine Blood (Negative) Negative Urine Nitrite (Negative) Negative Urine Bilirubin (Negative) Negative Urine Urobilinogen (Negative mg/dL) Negative Ur Leukocyte Esterase (Negative) 1+ H Urine RBC (<4 - 5 /HPF) 0-3 Urine WBC (<4 - 5 /HPF) 6-10 H Ur Squamous Epith Cells (0 - 5 (RARE) /HPF) >2 5 (MANY) H Urine Bacteria (None - Rare /HPF) Rare Urine Mucus (<Rare /LPF) Rare H Urine HCG, Qual (NEGATIVE) NEGATIVE Microbiology: Date/Time Procedure - Status Source Growth 01/12 1835 Blood Culture - RES BLOOD 01/12 1835 Blood Culture - COMP BLOOD COAGULASE NEG STAPHYLOCOCCUS Recent Impressions: CAT SCAN - CT ABD PELVIS W/O CONT 01/12 1815 Report Impression - Status: SIGNED Entered: 01/13/20201838 Impression: 1. There are 2 punctate 1 mm nonobstructing left renal calculi. 2. Diverticulosis without diverticulitis. Impression By: [email or web address] - Luis Neff MD Lab Imaging Statement Laboratory radiographic studies reviewed and con sidered in the medical decision-making. Point of Care Testing Pulse Oximetry Pulse Ox % 97 On: Room air Interpretation Interpreted by me, Pulse oximetr y normal Time 1905 Re-Evaluation [facility] )( Re-Evaluation/Progress #1 Text/Dict Note Patient reports that the pain has not improved s rick receiving the morphine Time of Re-Eval 1899 )( Re-Eval Status Unchanged Re-Evaluation/Progress #2 Text/Dict Note Patient would like to be discharged home. She re ports that she is from [place] and she is visiting her mom this weekend. She re ports that she was prescribed Tylenol with codeine but she did not know that s he is allowed to travel with narcotics and therefore did not bring the Tylenol with codeine with her. I told the patient that I would prescribe 2 days worth of Tylenol with codeine along with other medications for symptoms. Strict retu rn precautions provided Time of Eval 1925 Re-Eval Status Improved ED Course Medication(s) Ordered Medication(s) Ordered: Anti-Infective Agents Sig/Berenice Start time Last Medication Dose Route Stop Time Status Admin Ceftriaxone Sodium 1,000 MG X1ED STA 01/12 1830 DC 01/12 Sterile Water 10 ML IV 01/13 1832 183 Central Nervous System Agents Sig/Berenice Start time Last Medication Dose Route Stop Time Status Admin Fentanyl Citrate 25 MCG X1ED STA 01/12 1904 DC 01/12 IV 01/12 190 1910 Morphine Sulfate 4 MG X1ED STA 01/12 1831 DC 10 /30 IV 01/12 183 183 Ketorolac 30 MG X1ED STA 01/12 1756 DC 01/12 Tromethamine IV 01/12 175 1804 Electrolytic, Caloric, And Alex Sig/Berenice Start time Last Medication Dose Route Stop Time Status Admin Sodium Chloride 1,000 ML X1ED STA 01/12 1755 DC 01/12 IV 01/12 185 1803 Gastrointestinal Drugs Sig/Bereniec Start time Last Medication Dose Route Stop Time Status Admin Ondansetron HCl 4 MG X1ED STA 01/12 1756 DC IV 01/12 175 1804 Patient Discharge Departure Vital Signs/Condition Vital Signs First Documented: Result Date Time Pulse Ox 97 01/12 180 B/P 119/68 01/12 1809 B/P Mean 85 01/12 1809 O2 Delivery Room air 01/12 1809 Temp 98.0 01/12 1809 Pulse 141 01/12 180 Resp 28 01/12 1809 Last Documented: Result Date Time Pulse Ox 100 01/13 1936 B/P Mean 3 01/13 1936 O2 Delivery Room air 01/13 1936 Pulse 110 01/12 193 Resp 18 01/12 193 B/P 119/68 01/12 180 Temp 98.0 01/12 1809 All vital signs available at the time of this en try have been reviewed. Condition Improved Clinical Impression Clinical Impression Primary Impression: Renal calculi Disposition Decision Discharge )( Discharged to Home Yes )( Time 1926 )( Date 01/13/20 Discharge/Care Plan Counseled Regarding Diagnosi s, Lab results, Imaging studies, Prescriptions, Need for follow-up, When to return to ED (Auto) Prescriptions Current Visit Scripts LEVOFLOXACIN (LEVAQUIN) 750 MG PO DAILY LEVOFLOXACIN (LEVAQUIN) 750 MG PO DAILY #5 TABS ACETAMINOPHEN/CODEINE (TYLENOL WITH CODE INE #3 300/30 MG) 1 TAB PO Q4H PRN PRN ACUTE PAIN ACETAMINOPHEN/CODEINE (TYLENOL WITH CODEINE #3 300/30 MG) 1 TAB PO Q4H PRN PRN ACUTE PAIN #8 TABS KETOROLAC (TORADOL) 10 MG PO Q6H PRN PRN PAIN KETOROLAC (TORADOL) 10 MG PO Q6H PRN PRN PAIN # 20 TABS PROMETHAZINE (PHENERGAN) 25 MG PO Q6H PRN PRN NA USEA/VOMITING PROMETHAZINE (PHENERGAN) 25 MG PO Q6H PRN PRN N AUSEA/VOMITING #10 TABS Prescriptions Reviewed Risks, Benefits, Alternat ida treatment Patient Instructions ED Kidney Stone w/ Colic Discharge Note I have spoken with the patie nt and/or caregivers. I have explained the patient's condition, diagnoses and gwyn atment plan based on the information available to me at this time. I have answered the patient's and/ or caregiver's questions and addressed any concerns. The patient and/or careg martin have as good an understanding of the patient 's diagnosis, condition and treatment plan as can be expected at this point. The vital signs have bee n stable. The patient's condition is stable and appr opriate for discharge from the emergency department. The patient will pursue further outpatient evalu ation with the primary care physician or other designated or consulting phys ician as outlined in the discharge instructions. The patient and/or caregivers are agreeable to this plan of care and follow-up instructions have been exp lained in detail. The patient and/or caregivers have received these instructio ns in written format and have expressed an understanding of the discharge inst ructions. The patient and/or caregivers are aware that any significant change in condition or worsening of symptoms should prompt an immediate return to [facility] or the closest emergency department or a call to 911. Jonas Lambert 01/15/20 1646: HPI-Abd Pain F Under 40 General Initial Greet Date/Time 01/13/20 7465 Risk-Abd Pain F Under 40 )( Ectopic Risk factors reviewed Past Medical History - Adult Home Medications Active Scripts TAMSULOSIN ER (FLOMAX) 0.4 MG PO DAILY TAMSULOSIN ER (FLOMAX) 0.4 MG PO DAILY #5 CAPS Prov: 01/15/20 Reported Medications acetaZOLAMIDE (DIAMOX) 250 MG PO Q8H PNV WITH FE FUMARATE/FA () 1 TAB PO JF Y Patient Discharge Departure Supervising Physician Note MidLv Saw Pt Alone I have reviewed the PA/ADMITTING MANAGER's note and plan of car e. I was available for consultation as needed at al l times during the patient's visit in the emergency department. I agree with the clinical impression , plan and disposition. at 0145 RPT #:[id number] END OF REPORT 2020-01-13 18:57:00-00:00 [facility] ([facility] EMERGENCY PROVIDER REPORT REPORT#:[id number] REPORT STATUS: Signed DATE:01/13/20 TIME: 1856 PATIENT: NATIVIDAD KLINE UNIT #: [id number] ROOM/BED: AGE: 24 SEX: F PCP PHYS: Self Referred SERVICE DT: AUTHOR: Mayelin Tyler ADMITTING MANAGER * ALL edits or amendments must be made on the [employer]/computer document * Mayelin Tyler 01/13/201856: HPI-Abd Pain F Under 40 General Confirmed Patient Yes Patient Type New patient PCP NONE Presentation Chief Complaint Flank pain L, Nausea, Vomiting m oderate Hx Obtained From Patient Sudden in Onset? No Onset Occurred Weeks ago Symptom Duration Since onset, Waxes and wanes Progression since Onset Intermittent Caused by No trauma by history Location Flank left Quality Same as prior, Painful Radiation No: Does not radiate. Migration/Movement None Severity: Onset Severe Severity: Current Severe Exacerbated by Nothing Relieved by Nothing Free Text HPI Notes Free Text HPI Notes 24-year-old female presents to the ER with compl aints of left flank pain with nausea and vomiting onset 1 month ago She reports that she was seen in another ER appr oximately 1 month ago and treated for a UTI and a left kidney stone She reports that she has history of kidn ey stones. She denies fever, abdominal pain, chest pain, shortness of breath, or any ot her symptoms Review of Systems ROS Statements All systems rev neg except as marked. Focused Review of Systems Constitutional Denies: Chills, Fatigue, Fever, Weakness - gener alized. Respiratory Denies: Cough, non-productiv e, Cough, productive, Dyspnea on exertion, Pleuritic pain, Shortness of breath, Wheezing. Cardiovascular Denies: Chest pain, Dyspnea on exertion, Palpita tions, Syncope. GI Reports: Nausea, Vomiting. Denies: Abdominal alison n, Constipation, Diarrhea. Female Reports: Flank pain. Denies: Dysuria, Hematuria, , Urinary frequency, Urinary urgency, Urination decreased, Urination increased. Musculoskeletal Denies: Back pain, Lumbar pain, Neck pain, Thora cic pain. Additional Review of Systems Eyes Denies: Blurred bilat, Diplopia, Dischar ge bilat, Eye pain bilat, Photophobia. Skin Denies: Diaphoresis, Erythema, Rash, Swelling. Neurologic Denies: Abnormal movement, Bladder dysfu nction, Bowel dysfunction, Generalized weakness, Headache. Psychiatric Denies: Agitation, Anxiety, Stress. Past Medical History - Adult Stated Complaint KIDNEY STONE Allergies Coded Allergies: azithromycin (From ZITHROMAX) (Severe, SWELLS ) doxycycline (Severe, THROAT CLOSES 04/24/16) Review of Nursing Notes Rev avail, and agree Past Medical History: Reports: Urinary tract infection. Smoking status for patients 13 years old or olde r: Never Smoker Ambulatory Status Independent Physical Exam Vital Signs Vital Signs First Documented: Result Date Time Pulse Ox 97 01/12 1809 B/P 119/68 01/12 1809 B/P Mean 85 01/12 1809 O2 Delivery Room air 01/12 1809 Temp 98.0 01/12 1809 Pulse 141 01/12 1809 Resp 28 01/12 1809 Last Documented: Result Date Time Pulse Ox 100 01/13 1936 B/P Mean 3 01/13 1936 O2 Delivery Room air 01/13 1936 Pulse 110 01/13 1936 Resp 18 01/13 1936 B/P 119/68 01/12 1809 Temp 98.0 01/12 1809 Review of Vital Signs Reviewed Focused PE General/Const General/Const Awake, Alert, Well hydrated, Coop erative, Not toxic appearing MS Head Head Atraumatic, Normocephalic Eyes Eyes Atraumatic, PERRL, EOMI, No nystagmus, No periorbital redness, No periorbital swelling Ears/Nose/Throat Ears/Nose/Throat Atraumatic, Airway pat ent, Mucous membranes moist, No facial swelling Resp/Chest Respiratory/Chest Atraumatic, Breath sounds NL, Breath sounds = bilat, No respiratory distress Cardiovascular Cardiovascular Heart rate NL, Regular r hythm, Heart sounds NL, Cap refill not delayed, Peripheral circulation NL Abdomen/GI Abdomen/GI Atraumatic, Soft, No rebound, BS nor moactive, No distention Tenderness/Guarding/Rebound Tender flank L. MS Back Back Atraumatic, Full range of motion, No midli ne vertebral tend, No paraspinal tenderness Flank/Spine/Paraspinal Flank tender L. Skin Skin Atraumatic, Color NL, No rash, Dry, Intact , Turgor NL, No swelling Neurologic Neurologic Oriented X3, Speech NL, No motor def icits, No sensory deficits, Memory NL Additional PE MS Neck Neck Atraumatic, Supple, No meningismus, No swe lling, No midline vertebral tend Lymphatic Lymphatic No gross adenopathy Psychiatric Psychiatric Affect NL, Mood NL, Cognitive funct ion NL, Judgment/insight NL, Thought content NL Interpretation Diagnostics Lab Results Interpretation Results Laboratory Tests 01/13/201807: [Embedded Image Not Available] Laboratory Tests: 01/12 Chemistry Sodium (137 - 145 mmol/L) 138 Potassium (3.4 - 5.0 mmol/L) 3.9 Chloride (98 - 107 mmol/L) 104 Carbon Dioxide (22 - 30 mmol/L) 22 BUN (7 - 17 mg/dL) 11 Creatinine (0.5 - 1.0 mg/dL) 0.7 Glomerular Filtr Rate (>60) 109 Glucose (74 - 106 mg/dL) 99 Lactic Acid (0.7 - 2.0 mmol/L) 1.6 Calcium (8.4 - 10.2 mg/dL) 10.0 Total Bilirubin (0.2 - 1.3 mg/dL) 0.3 Conjugated Bilirubin (0 - 0.3 mg/dL) 0 Unconjugated Bilirubin (0 - 1.1 mg/dL) 0.1 AST (15 - 46 U/L) 29 ALT (0 - 34 U/L) 25 Total Alk Phosphatase (38 - 126 U/L) 96 Total Protein (6.3 - 8.2 g/dL) 8.3 H Albumin (3.5 - 5.0 g/dL) 4.9 Lipase (23 - 300 U/L) 81 Hematology WBC (5.0 - 12.0 x10 3/uL) 17.5 H RBC (4.20 - 5.40 x10 6/uL) 4.44 Hgb (12.0 - 16.0 g/dL) 12.9 Hct (36.0 - 46.0 %) 40.3 MCV (81 - 99 fL) 91 MCH (27 - 31 pg) 29.1 MCHC (33 - 37 g/dL) 32.0 L RDW (11.5 - 15.5 %) 13.3 Plt Count (130 - 400 x10 3/uL) 517 H MPV (9.4 - 16.4 fL) 9.5 Neut % (Auto) (43 - 65 %) 68.9 H Lymph % (Auto) (20.5 - 45.5 %) 21.9 Whiteside % (Auto) (5.5 - 11.7 %) 5.4 L Eos % (Auto) (0.9 - 2.9 %) 2.9 Baso % (Auto) (0.2 - 1.0 %) 0.5 Neut # (Auto) (2.2 - 4.8 x10 3/uL) 12.05 H Lymph # (Auto) (1.3 - 2.9 x10 3/uL) 3.84 H Whiteside # (Auto) (0.3 - 0.8 x10 3/uL) 0.95 H Eos # (Auto) (0.0 - 0.2 x10 3/uL) 0.51 H Baso # (Auto) (0.0 - 0.1 x10 3/uL) 0.08 Immature Gran % (0.0 - 2.0 %) 0.4 Nucleated RBC % (0 - 1.0 %) 0.0 Urines Urine Color (Yellow) Yellow Urine Appearance (Clear) Cloudy H Urine pH (5.0 - 8.0) 7.0 Ur Specific Cal[place]oun (<1.030) 1.018 Urine Protein (Negative mg/dL) NEGATIVE Urine Glucose (UA) (Negative) Negative Urine Ketones (Negative mg/dL) Negative Urine Blood (Negative) Negative Urine Nitrite (Negative) Negative Urine Bilirubin (Negative) Negative Urine Urobilinogen (Negative mg/dL) Negative Ur Leukocyte Esterase (Negative) 1+ H Urine RBC (<4 - 5 /HPF) 0-3 Urine WBC (<4 - 5 /HPF) 6-10 H Ur Squamous Epith Cells (0 - 5 (RARE) /HPF) >25 (MANY) H Urine Bacteria (None - Rare /HPF) Rare Urine Mucus (<Rare /LPF) Rare H Urine HCG, Qual (NEGATIVE) NEGATIVE Microbiology: Date/Time Procedure - Status Source Growth 01/12 1835 Blood Culture - RES BLOOD 01/12 1835 Blood Culture - COMP BLOOD COAGULASE NEG STAPHYLOCOCCUS Recent Impressions: CAT SCAN - CT ABD PELVIS W/O CONT 01/12 1815 Report Impression - Status: SIGNED Entered: 01/13/20201838 Impression: 1. There are 2 punctate 1 mm nonobstructing left renal calculi. 2. Diverticulosis without diverticulitis. Impression By: Luis Carrasco MD Lab Imaging Statement Laboratory radiographic studies reviewed and con sidered in the medical decision-making. Point of Care Testing Pulse Oximetry Pulse Ox % 97 On: Room air Interpretation Interpreted by me, Pulse oximetr y normal Time 1905 Re-Evaluation [facility] )( Re-Evaluation/Progress #1 Text/Dict Note Patient reports that the pain has not improved s rick receiving the morphine Time of Re-Eval 1899 )( Re-Eval Status Unchanged Re-Evaluation/Progress #2 Text/Dict Note Patient would like to be discharged home. She re ports that she is from [place] and she is visiting her mom this weekend. She re ports that she was prescribed Tylenol with codeine but she did not know that s he is allowed to travel with narcotics and therefore did not bring the Tylenol with codeine with her. I told the patient that I would prescribe 2 days worth of Tylenol with codeine along with other medications for symptoms. Strict retu rn precautions provided Time of [id number] Re-Eval Status Improved ED Course Medication(s) Ordered Medication(s) Ordered: Anti-Infective Agents Sig/Berenice Start time Last Medication Dose Route Stop Time Status Admin Ceftriaxone Sodium 1,000 MG X1ED STA 01/12 1830 DC 01/12 Sterile Water 10 ML IV 01/12 Central Nervous System Agents Sig/Berenice Start time Last Medication Dose Route Stop Time Status Admin Fentanyl Citrate 25 MCG X1ED STA 01/12 1904 DC 01/12 IV 01/12 190 1910 Morphine Sulfate 4 MG X1ED STA 01/12 1831 DC IV 01/12 183 1836 Ketorolac 30 MG X1ED STA 01/12 1756 DC 01/12 Tromethamine IV 01/12 175 1804 Electrolytic, Caloric, And Alex Sig/Berenice Start time Last Medication Dose Route Stop Time Status Admin Sodium Chloride 1,000 ML X1ED STA 01/12 1755 DC 01/12 IV 01/12 1854 1803 Gastrointestinal Drugs Sig/Berenice Start time Last Medication Dose Route Stop Time Status Admin Ondansetron HCl 4 MG X1ED STA 01/12 1756 DC IV 01/12 175 1804 Patient Discharge Departure Vital Signs/Condition Vital Signs First Documented: Result Date Time Pulse Ox 97 01/12 180 B/P 119/68 01/12 180 B/P Mean 85 01/12 180 O2 Delivery Room air 01/12 180 Temp 98.0 01/12 180 Pulse 141 01/12 180 Resp 28 01/12 1809 Last Documented: Result Date Time Pulse Ox 100 01/12 193 B/P Mean 3 01/12 193 O2 Delivery Room air 01/12 193 Pulse 110 01/12 193 Resp 18 01/12 193 B/P 119/68 01/12 180 Temp 98.0 01/12 180 All vital signs available at the time of this en try have been reviewed. Condition Improved Clinical Impression Clinical Impression Primary Impression: Renal calculi Disposition Decision Discharge )( Discharged to Home Yes )( Time 1926 )( Date 01/13/20 Discharge/Care Plan Counseled Regarding Diagnosi s, Lab results, Imaging studies, Prescriptions, Need for follow-up, When to return to ED (Auto) Prescriptions Current Visit Scripts LEVOFLOXACIN (LEVAQUIN) 750 MG PO DAILY LEVOFLOXACIN (LEVAQUIN) 750 MG PO DAILY #5 TABS ACETAMINOPHEN/CODEINE (TYLENOL WITH CODE INE #3 300/30 MG) 1 TAB PO Q4H PRN PRN ACUTE PAIN ACETAMINOPHEN/CODEINE (TYLENOL WITH CODEINE #3 300/30 MG) 1 TAB PO Q4H PRN PRN ACUTE PAIN #8 TABS KETOROLAC (TORADOL) 10 MG PO Q6H PRN PRN PAIN KETOROLAC (TORADOL) 10 MG PO Q6H PRN PRN PAIN # 20 TABS PROMETHAZINE (PHENERGAN) 25 MG PO Q6H PRN PRN NA USEA/VOMITING PROMETHAZINE (PHENERGAN) 25 MG PO Q6H PRN PRN N AUSEA/VOMITING #10 TABS Prescriptions Reviewed Risks, Benefits, Alternat ida treatment Patient Instructions ED Kidney Stone w/ Colic Discharge Note I have spoken with the patie nt and/or caregivers. I have explained the patient's condition, diagnoses and gwyn atment plan based on the information available to me at this time. I have answered the patient's and/ or caregiver's questions and addressed any concerns. The patient and/or careg martin have as good an understanding of the patient 's diagnosis, condition and treatment plan as can be expected at this point. The vital signs have bee n stable. The patient's condition is stable and appr opriate for discharge from the emergency department. The patient will pursue further outpatient evalu ation with the primary care physician or other designated or consulting phys ician as outlined in the discharge instructions. The patient and/or caregivers are agreeable to this plan of care and follow-up instructions have been exp lained in detail. The patient and/or caregivers have received these instructio ns in written format and have expressed an understanding of the discharge inst ructions. The patient and/or caregivers are aware that any significant change in condition or worsening of symptoms should prompt an immediate return to [facility] or the closest emergency department or a call to 911. Jonas Lambert 01/15/20 1646: HPI-Abd Pain F Under 40 General Initial Greet Date/Time 01/13/20 1755 Risk-Abd Pain F Under 40 )( Ectopic Risk factors reviewed Past Medical History - Adult Home Medications Active Scripts TAMSULOSIN ER (FLOMAX) 0.4 MG PO DAILY TAMSULOSIN ER (FLOMAX) 0.4 MG PO DAILY #5 CAPS Prov: 01/15/20 Reported Medications acetaZOLAMIDE (DIAMOX) 250 MG PO Q8H PNV WITH FE FUMARATE/FA () 1 TAB PO JF Y Patient Discharge Departure Supervising Physician Note MidLv Saw Pt Alone I have reviewed the PA/ADMITTING MANAGER's note and plan of car martin. I was available for consultation as needed at al l times during the patient's visit in the emergency department. I agree with the clinical impression , plan and disposition. at 0145 Electronically Signed by Jonas Lambert DO on 04/04 at 1647 RPT #:[id number] END OF REPORT
[2022-11-28 14:44] LABS: Absolute Lymphocytes (CBC) 2.4 K/uL (0.7-4.9); Hematocrit 35.3 % (36.0-45.0); Lymphocytes % 24.3 % (15.3-44.8); Platelets 391 thou/uL (152-406); RBC Red Blood Cell Count 4.26 M/uL (3.86-4.86)
[2022-11-28] MEDS ORDERED: ONDANSETRON 4 MG/2 ML VIAL ONE (14:53)
[2022-11-28] MEDS ORDERED: NA CHLORIDE 0.9% 1,000 ML ONE (14:53)
[2022-11-28] MEDS ORDERED: FENTANYL CITR 100 MCG/2 ML ONE (15:00)
[2022-11-28 15:05] LABS: Potassium 3.7 mEq/L (3.5-5.1)
--- NOTE | 2022-11-28 16:50 | RAD REPORT ---
EXAM DESCRIPTION: US - Transvaginal OB - 11/28/2022 4:33 pm CLINICAL HISTORY: with vaginal bleeding COMPARISON: None. FINDINGS: The uterus measures 6 x 3 x 5 centimeters. The endometrial stripe measures millimeters. A gestational sac measures 1.3 centimeters. A pole is not seen Ovaries are normal in size and echotexture.. A 2.9 centimeter right ovarian cyst. 2.5 centimeters lef t ovarian cyst. Blood flow to each ovary. No follow-up recommended The right and left adnexa unremarkable No significant free fluid IMPRESSION: 1.3 centimeter gestational sac within the endometrium. This corresponds to an estimated gestational age 6 weeks 2 days. This may represent a viable intrauterine in which the pole is not yet seen secondary to the early gestation. Incomplete can have a similar appearance It is recommended that the patient a followup endovaginal sonogram in 1 week with serial beta HCG lev els
[2022-11-28 17:04] LABS: Specific Gravity > 1.030 (1.005-1.030); Urine Bacteria 20-50 /HPF (<20); Urine Bilirubin NEGATIVE (Negative); Urine Blood Negative (Negative); Urine Clarity Extremely Turbid (Clear); Urine Color Light-Yellow (Yellow); Urine Glucose NEGATIVE (Negative); Urine Mucus 2+ /HPF (None Seen); Urine Protein TRACE (Negative); Urine Urobilinogen Normal (Normal)
[2022-11-28] MEDS ORDERED: CEFTRIAXONE 1000 MG/VIAL ONE (17:08)
[2022-11-28 17:30] LABS: Specific Gravity > 1.030 (1.005-1.030)
--- NOTE | 2022-11-28 17:39 | EDPHYS ---
Physician Documentation [facility] Name: Ana Lilia Kline Age: 27 yrs Sex: Female : 1995 Arrival Date: 11/28/2022 Time: 14:10 Bed 19 Private MD: ED Physician Alexandro Bagley HPI: 11/28 16:44 This 27 yrs old Female presents to ER via Ambulatory with complaints of saeid Abdominal Pain, Back Pain. 16:44 The patient presents with pain that is acute. 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 - Social history:: Smoking status: Patient denies any tobacco usage or history of. ROS: 16:45 Constitutional: Negative for fever, chills, and weight loss, Eyes: Negative for injury, saeid pain, redness, and discharge, ENT: Negative for injury, pain, and discharge, Neck: Negative for injury, pain, and swelling, Cardiovascular: Negative for chest pain, palpitations, and edema, Respiratory: Negative for shortness of breath, cough, wheezing, and pleuritic chest pain, Back: Negative for injury and pain, : Negative for injury, bleeding, discharge, and swelling, MS/Extremity: Negative for injury and deformity, Skin: Negative for injury, rash, and discoloration, Neuro: Negative for headache, weakness, numbness, tingling, and seizure, Psych: Negative for depression, anxiety, suicide ideation, homicidal ideation, and hallucinations, Allergy/Immunology: Negative for hives, rash, and allergies, Endocrine: Negative for neck swelling, polydipsia, polyuria, polyphagia, and marked weight changes, Hematologic/Lymphatic: Negative for swollen nodes, abnormal bleeding, and unusual bruising. 16:45 Abdomen/GI: Positive for abdominal pain, of the suprapubic area and right lower quadrant. Exam: 16:45 Constitutional: This is a well developed, well nourished patient who is awake, alert, saeid and in no acute distress. Head/Face: Normocephalic, atraumatic. Eyes: Pupils equal round and reactive to light, extra-ocular motions intact. Lids and lashes normal. Conjunctiva and sclera are non-icteric and not injected. Cornea within normal limits. Periorbital areas with no swelling, redness, or edema. ENT: Nares patent. No nasal discharge, no septal abnormalities noted. Tympanic membranes are normal and external auditory canals are clear. Oropharynx with no redness, swelling, or masses, exudates, or evidence of obstruction, uvula midline. Mucous membranes moist. Neck: Trachea midline, no thyromegaly or masses palpated, and no cervical lymphadenopathy. Supple, full range of motion without nuchal rigidity, or vertebral point tenderness. No Meningismus. Chest/axilla: Normal chest wall appearance and motion. Nontender with no deformity. No lesions are appreciated. Cardiovascular: Regular rate and rhythm with a normal S1 and S2. No gallops, murmurs, or rubs. Normal PMI, no JVD. No pulse deficits. Respiratory: Lungs have equal breath sounds bilaterally, clear to auscultation and percussion. No rales, rhonchi or wheezes noted. No increased work of breathing, no retractions or nasal flaring. Back: No spinal tenderness. No costovertebral tenderness. Full range of motion. Skin: Warm, dry with normal turgor. Normal color with no rashes, no lesions, and no evidence of cellulitis. MS/ Extremity: Pulses equal, no cyanosis. Neurovascular intact. Full, normal range of motion. Neuro: Awake and alert, GCS 15, oriented to person, place, time, and situation. Cranial nerves II-XII grossly intact. Motor strength 5/5 in all extremities. Sensory grossly intact. Cerebellar exam normal. Normal gait. Psych: Awake, alert, with orientation to person, place and time. Behavior, mood, and affect are within normal limits. 16:45 Abdomen/GI: Inspection: abdomen appears normal, Bowel sounds: normal, Palpation: mild abdominal tenderness, in the suprapubic area and right lower quadrant, Liver: no appreciated palpable abnormalities, Hernia: not appreciated. Vital Signs: 14:16 BP 149 / 102; Pulse 126; Resp 18; Temp 99; Pulse Ox 100% on R/A; Weight 113.4 kg; hb Height 5 ft. 2 in. ; Pain 9/10; 15:51 BP 116 / 83; Pulse 98; Resp 18; Pulse Ox 100% on R/A; mb9 14:16 Body Mass Index 45.73 (113.40 kg, 157.48 cm) hb 14:16 Pain Scale: Adult hb MDM: 14:20 Patient medically screened. saeid 16:47 Differential diagnosis: ectopic , Obesity Pyelonephritis Renal saeid Infarction Ureterolithiasis Ectopic , Ovarian Torsion, Ureterolithiasis, urinary tract infection. Data reviewed: vital signs, nurses notes, lab test result(s), radiologic studies, ultrasound. Consideration of Admission/Observation Escalation of care including admission/observation considered. I considered the following discharge prescriptions or medication management in the emergency department Medications were administered in the Emergency Department. See MAR. Independent interpretation of the following test(s) in the Emergency Department Radiology Department Ultrasound: My interpretation is pelvic usg, . Test considered but Not performed: MRI: no mri pelvis. Historians other than the Patient: pt good historian. Care significantly affected by the following chronic conditions: Obesity, cyst, a0. Counseling: I had a detailed discussion with the patient and/or guardian regarding the historical points, exam findings, and any diagnostic results supporting the discharge/admit diagnosis, lab results, radiology results, the need for outpatient follow up, for definitive care, an OB/Gyne specialist. 11/28 14:23 Order name: Abo/rh Typing; Complete Time: 17:38 [facility] 11/28 14:23 Order name: Basic Metabolic Panel; Complete Time: 16:17 [facility] 11/28 14:23 Order name: CBC with Diff; Complete Time: 16:17 [facility] 11/28 14:23 Order name: Test, Urine; Complete Time: 17:38 [facility] 11/28 14:23 Order name: Quantitative Hcg; Complete Time: 16:17 [facility] 11/28 14:23 Order name: Urinalysis w/ reflexes; Complete Time: 17:38 [facility] 11/28 16:32 Order name: Transvaginal OB; Complete Time: 16:53 [facility] 11/28 16:47 Order name: US Rp Exam Limited; Complete Time: 18:05 [facility] 11/28 14:23 Order name: IV Saline Lock; Complete Time: 14:31 [facility] 11/28 14:23 Order name: Labs collected and sent; Complete Time: 14:51 [facility] 11/28 14:23 Order name: NPO; Complete Time: 14:31 saeid Administered Medications: 14:50 Drug: NS 0.9% IV 1000 ml Route: IV; Rate: 1 bolus; Site: left hand; ap3 14:50 Not Given (not availl): Butorphanol IVP 1 mg IVP once ap3 14:50 Drug: Ondansetron IVP 4 mg Route: IVP; Site: left hand; ap3 16:03 Follow up: Response: No adverse reaction ap3 14:50 Not Given (not availl): Butorphanol IVP 1 mg IVP once ap3 15:05 Drug: fentaNYL (PF) IVP 25 mcg Route: IVP; Site: right hand; ap3 16:03 Follow up: Response: No adverse reaction; Pain is unchanged, physician notified ap3 15:11 Drug: fentaNYL (PF) IVP 25 mcg Route: IVP; Site: right antecubital; ap3 16:03 Follow up: Response: No adverse reaction; Pain is unchanged, physician notified ap3 15:51 Drug: fentaNYL (PF) IVP 25 mcg Route: IVP; Site: right hand; mb9 16:48 Follow up: Response: No adverse reaction; Pain is unchanged, physician notified ap3 17:02 Drug: Rocephin IV 1 grams Route: IV; Rate: per protocol; Site: right hand; ap3 17:02 Drug: fentaNYL (PF) IVP 25 mcg Route: IVP; Site: right hand; ap3 18:14 Follow up: Response: No adverse reaction; Pain is unchanged, physician notified ap3 18:13 Drug: Macrobid PO 100 mg Route: PO; ap3 18:14 Follow up: Response: No adverse reaction ap3 18:14 Drug: HYDROmorphone IVP 0.5 mg Route: IVP; Site: right hand; ap3 18:14 Follow up: Response: No adverse reaction; Pain is decreased ap3 Disposition Summary: 11/28/22 17:38 Discharge Ordered Location: Home saeid Problem: new saeid Symptoms: have improved saeid Condition: Stable saeid Diagnosis - Less than 8 weeks gestation of saeid - Pelvic and perineal pain saeid - UTI/ Urinary tract infection, site not specified saeid Followup: saeid - With: Private Physician - When: 2 - 3 days - Reason: Recheck today's complaints, Continuance of care, Re-evaluation by your physician Discharge Instructions: - Discharge Summary Sheet saeid - Dysuria saeid - Pelvic Pain, Female saeid - Care saeid - Urinary Tract Infection, Adult saeid - First Trimester of , [id number] saeid - Urinary Tract Infection, Adult, [id number] saeid - First Trimester of saeid Forms: - Medication Reconciliation Form saeid - Thank You Letter saeid - Antibiotic Education saeid - Prescription Opioid Use saeid - Patient Portal Instructions saeid - Leadership Thank You Letter saeid - Work release form jl7 Prescriptions: - Macrobid 100 mg Oral Capsule - take 1 capsule by ORAL route every 12 hours for 7 days; 14 capsule; Refills: 0, saeid Product Selection Permitted Signatures: Dispatcher [employer] EDAlexandro Chavez MD MD cha Baxter, Heather, RN RN Nataliia Hopkins RN RN ap3 Lyla Martinez, PA-C PA-C sb4 Della Arguelles RN RN mb9 Corrections: (The following items were deleted from the chart) 16:29 14:23 Transvaginal Ob+US.RAD.BRZ ordered. EDMS EDMS
--- NOTE | 2022-11-28 17:39 | ER ---
Nurse's Notes [facility] Name: Ana Lilia Kline Age: 27 yrs Sex: Female : 1995 Arrival Date: 11/28/2022 Time: 14:10 Bed 19 Private MD: Diagnosis: Less than 8 weeks gestation of ;Pelvic and perineal pain;UTI/ Urinary tract infection, site not specified Presentation: 11/28 14:16 Chief complaint: Sudden onset lower abdominal pain that started 3 hours ago. Recently hb seen in ED for UTI, ovarian cyst, and early . Pt is approx 6 weeks , . Hx of ovarian torsion and UTIs. Coronavirus screen: At this time, the client does not indicate any symptoms associated with coronavirus-19. Ebola Screen: No symptoms or risks identified at this time. Initial Sepsis Screen: Does the patient meet any 2 criteria?. Risk Assessment: Do you want to hurt yourself or someone else? Patient reports no desire to harm self or others. Onset of symptoms was November 28, 2022. 14:16 Method Of Arrival: Ambulatory hb 14:16 Acuity: KATY 2 hb 18:14 Initial Sepsis Screen: Does the patient have a suspected source of infection? No. ap3 Patient's initial sepsis screen is negative. Triage Assessment: 16:04 General: Appears uncomfortable, Behavior is restless. Pain: Complains of pain in ap3 abdomen. Neuro: Level of Consciousness is awake, alert, obeys commands, Oriented to person, place, time, situation. Cardiovascular: Patient's skin is warm and dry. Respiratory: Airway is patent Respiratory effort is even, unlabored. GI: Reports lower abdominal pain. 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 - Social history:: Smoking status: Patient denies any tobacco usage or history of. Screenin:52 [facility] ED Fall Risk Assessment (Adult) History of falling in the last 3 months, ap3 including since admission No falls in past 3 months (0 pts). Abuse screen: Denies threats or abuse. Nutritional screening: No deficits noted. Tuberculosis screening: No symptoms or risk factors identified. Assessment: 14:51 General: Appears uncomfortable, Behavior is restless. Pain: Complains of pain in ap3 abdomen Pain currently is 10 out of 10 on a pain scale. Pain began 3 hours ago. Neuro: Level of Consciousness is awake, alert, obeys commands, Oriented to person, place, time, situation. Cardiovascular: Patient's skin is warm and dry. Respiratory: Airway is patent Respiratory effort is even, unlabored, Respiratory pattern is regular, symmetrical. 16:43 GI: Bowel sounds present X 4 quads. Abd is soft. ap3 Vital Signs: 14:16 BP 149 / 102; Pulse 126; Resp 18; Temp 99; Pulse Ox 100% on R/A; Weight 113.4 kg; hb Height 5 ft. 2 in. ; Pain 9/10; 15:51 BP 116 / 83; Pulse 98; Resp 18; Pulse Ox 100% on R/A; mb9 14:16 Body Mass Index 45.73 (113.40 kg, 157.48 cm) hb 14:16 Pain Scale: Adult hb ED Course: 14:14 Patient arrived in ED. mg5 14:18 Triage completed. hb 14:20 Alexandro Bagley MD is Attending Physician. saeid 14:30 Inserted saline lock: 22 gauge in right hand, using aseptic technique. ap3 14:52 Arm band placed on right wrist. ap3 16:04 Nataliia Ruby, RN is Primary Nurse. ap3 16:04 Patient has correct armband on for positive identification. Bed in low position. Call ap3 light in reach. Pulse ox on. NIBP on. Door closed. Noise minimized. 16:32 Transvaginal OB In Process Unspecified. EDMS 16:44 No provider procedures requiring assistance completed. ap3 17:53 US Rp Exam Limited In Process Unspecified. EDMS 18:14 Patient did not have IV access during this emergency room visit. intact, bleeding ap3 controlled, No redness/swelling at site. Pressure dressing applied. 18:15 Provided Education on: discharge instructions. ap3 Administered Medications: 14:50 Drug: NS 0.9% IV 1000 ml Route: IV; Rate: 1 bolus; Site: left hand; ap3 14:50 Not Given (not availl): Butorphanol IVP 1 mg IVP once ap3 14:50 Drug: Ondansetron IVP 4 mg Route: IVP; Site: left hand; ap3 16:03 Follow up: Response: No adverse reaction ap3 14:50 Not Given (not availl): Butorphanol IVP 1 mg IVP once ap3 15:05 Drug: fentaNYL (PF) IVP 25 mcg Route: IVP; Site: right hand; ap3 16:03 Follow up: Response: No adverse reaction; Pain is unchanged, physician notified ap3 15:11 Drug: fentaNYL (PF) IVP 25 mcg Route: IVP; Site: right antecubital; ap3 16:03 Follow up: Response: No adverse reaction; Pain is unchanged, physician notified ap3 15:51 Drug: fentaNYL (PF) IVP 25 mcg Route: IVP; Site: right hand; mb9 16:48 Follow up: Response: No adverse reaction; Pain is unchanged, physician notified ap3 17:02 Drug: Rocephin IV 1 grams Route: IV; Rate: per protocol; Site: right hand; ap3 17:02 Drug: fentaNYL (PF) IVP 25 mcg Route: IVP; Site: right hand; ap3 18:14 Follow up: Response: No adverse reaction; Pain is unchanged, physician notified ap3 18:13 Drug: Macrobid PO 100 mg Route: PO; ap3 18:14 Follow up: Response: No adverse reaction ap3 18:14 Drug: HYDROmorphone IVP 0.5 mg Route: IVP; Site: right hand; ap3 18:14 Follow up: Response: No adverse reaction; Pain is decreased ap3 Medication: 16:04 VIS not applicable for this client. ap3 Outcome: 17:38 Discharge ordered by . saeid 18:14 Discharged to home ambulatory. ap3 18:14 Condition: good 18:14 Discharge instructions given to patient, Instructed on discharge instructions, follow up and referral plans. Demonstrated understanding of instructions, follow-up care, medications, Prescriptions given X 1. 18:15 Patient left the ED. ap3 Signatures: Dispatcher [employer] EDAZ Alexandro Bagley MD MD cha Baxter, Heather, RN RN Nataliia Ruby RN RN ap3 Della Arguelles RN RN mb9 Mary Simmons mg5 Corrections: (The following items were deleted from the chart) 16:29 15:33 In radiology for Transvaginal Ob+US.RAD.HOA. EDMS EDMS
[2022-11-28] MEDS ORDERED: HYDROMORPHONE HCL 0.5 MG/0.5 ML INJ ONE (17:45)
--- NOTE | 2022-11-28 18:01 | RAD REPORT ---
EXAM DESCRIPTION: US - Renal Ultrasound-Limited - 11/28/2022 5:51 pm CLINICAL HISTORY: Abdominal pain COMPARISON: March 2022 FINDINGS: The right kidney measures 11 cm with a normal echotexture. The left kidney measures 11 cm with a normal echotexture. Hydronephrosis is not seen. IMPRESSION: Unremarkable renal ultrasound.
[2022-11-28 18:57] VITALS: TEMP 99; O2SAT 100
[2022-11-28 18:58] VITALS: BP 116/83
== END 2022-11-28 18:15 | disposition home or self-care (01) ==
LOC: ER 14:10
DX: N39.0 Urinary tract infection, site not specified (principal); Z33.1 Pregnant state, incidental; Z88.1 Allergy status to other antibiotic agents; Z88.5 Allergy status to narcotic agent; Z88.8 Allergy status to other drugs, medicaments and biological substances
CPT/HCPCS: 85025; 81001; 80048; 36415; 86900; 81025; 86901; 84702; 76775; 76817; 99284; J3010; J1170; J2405; J7030; J0696